=== PATIENT | female | born 1945 | race Caucasian/White ===

== ENCOUNTER → 2016-12-10 | Outpatient (CLI) | payer BC ==
[~2016-12-10] MED LIST: ALBU0.08 INH; ALBU1AER9 INH; ALL100 PO; ALL180 PO; ASTNS NAE; BECL0.072 INH; BMX1 PO; BUDE180I INH; CALC0.2510 PO; CHOL135C6 PO; CLC100 PO; CLON0.5T3 PO; CMD5 PO; CYM/30 PO; ERGO1CAP35 PO; EZET10TA41 PO; GUAI-13 PO; INSDGI SC; ISOS30TA3 PO; METO-157 PO; METO25TA3 PO; MONT1TAB5 PO; NTRGSL/4 UT; NVLGI SC; PANT40TA PO; PSEU30TA20 PO; SITA100T3 PO; SPIR50TA2 PO; TIOTCAP INH; WARF5TAB90 PO
[2016-12-10 10:35] LABS: BLOOD UREA NITROGEN 52 mg/dl (7-18); BUN/CREATININE RATIO 21.8 (10-20); CALCIUM 8.9 mg/dl (8.5-10.1); CARBON DIOXIDE 28 mmol/L (21-32); CHLORIDE 100 mmol/L (98-107); GLUCOSE 214 mg/dl (70-99); MAGNESIUM 2.4 mg/dl (1.8-2.4); PHOSPHORUS 3.1 mg/dl (2.5-4.9); POTASSIUM 4.1 mmol/L (3.5-5.1); SODIUM 138 mmol/L (136-145)
[2016-12-10 10:44] LABS: ESTIMATED AVERAGE GLUCOSE 169 mg/dl; HA1C FLAG Normal (Normal)
== END | disposition home or self-care (01) ==
LOC: C.LAB 09:23
PROVIDERS: ATTEND Internal Medicine Nephrology
DX: E11.65 Type 2 diabetes mellitus with hyperglycemia (principal); N18.4 Chronic kidney disease, stage 4 (severe)

== ENCOUNTER → 2017-02-10 | Outpatient (CLI) | payer BC ==
[~2017-02-10] MED LIST changes: +ALBU18002 INH; +ALLO100T PO; +AZEL0.15 NAE; +BUME2TAB3 PO; +CLBPO15 TOP; +DOCU100C31 PO; +ERGO500011 PO; +FEXO1TAB49 PO; +GUAIFENESIN PO; +IPRASOL4 INH; +NVLG SC; +PSEU120T31 PO; +SPRIN/30 INH; +WARF5TAB7 PO
== END | disposition home or self-care (01) ==
LOC: C.LAB1850 14:51
PROVIDERS: ATTEND Internal Medicine Pulmonary Disease
DX: G47.33 Obstructive sleep apnea (adult) (pediatric) (principal); E66.9 Obesity, unspecified

== ENCOUNTER → 2017-03-18 | Outpatient (CLI) | payer BC ==
[2017-03-18 09:40] LABS: BASO % 0.3 %; BASO ABS # 0.03 K/uL (0-0.2); COMPLETE YES; EOS % 3.8 %; HEMATOCRIT 39.3 % (37-47); IG% 0.8 %; LYMPH % 15.3 %; LYMPH ABS # 1.47 K/uL (1.2-3.4); MEAN CELL VOLUME 92.3 fL (80-100); MEAN CORPUSCULAR HEMOGLOBIN 30.8 pg (25-34); MEAN CORPUSCULAR HGB CONC 33.3 g/dl (32-36); MEAN PLATELET VOLUME 10.1 fL (7.4-10.4); MONO % 8.1 %; NEUT % 71.7 %; PLATELET COUNT 230 K/uL (130-400); RED BLOOD COUNT 4.26 M/uL (4.2-5.4); WHITE BLOOD COUNT 9.62 K/uL (4.8-10.8)
[2017-03-18 09:52] LABS: BLOOD UREA NITROGEN 50 mg/dl (7-18); CARBON DIOXIDE 25 mmol/L (21-32); CHLORIDE 101 mmol/L (98-107); CHOLESTEROL 156 mg/dl (0-200); GLUCOSE 153 mg/dl (70-99); MAGNESIUM 2.7 mg/dl (1.8-2.4); SODIUM 137 mmol/L (136-145); TRIGLYCERIDES 327 mg/dl (0-150); VERY LOW DENSITY LIPOPROT CALC 65 mg/dl
[2017-03-18 09:54] LABS: URINE APPEARANCE CLEAR (CLEAR); URINE BILIRUBIN NEG (NEG); URINE COLOR YELLOW; URINE NITRITE NEG (NEG); UROBILINOGEN NEG (NEG); ZZUR CULT IF INDIC CLEAN CATCH NO
[2017-03-18 09:56] LABS: MANUAL MICROSCOPIC REQUIRED? NO; REVIEW REQ? NO
[2017-03-18 09:57] LABS: CALCIUM 9.5 mg/dl (8.5-10.1)
[2017-03-18 10:02] LABS: CHOLESTEROL/HDL RATIO 4.2; HDL CHOLESTEROL 37 mg/dl; LDL CHOLESTEROL CALCULATED 54 mg/dl; PHOSPHORUS 3.9 mg/dl (2.5-4.9)
[2017-03-18 10:09] LABS: URINE PROTIEN/CREAT RATIO 0.2 (0-0.2); URINE TOTAL PROTEIN 5.9 mg/dl (0-11.9)
[2017-03-18 10:44] LABS: ESTIMATED AVERAGE GLUCOSE 180 mg/dl; HA1C FLAG Normal (Normal)
== END | disposition home or self-care (01) ==
LOC: C.LAB 07:23
PROVIDERS: ATTEND Nurse Practitioner Family
DX: N18.4 Chronic kidney disease, stage 4 (severe) (principal); R94.6 Abnormal results of thyroid function studies; E11.65 Type 2 diabetes mellitus with hyperglycemia; E78.5 Hyperlipidemia, unspecified

== ENCOUNTER → 2017-03-24 | Outpatient (CLI) | payer BC ==
--- NOTE | 2017-03-25 07:31 | SPLIT NIGHT TECHNICIAN REPORT ---
[facility] Split Night Polysomnogram - Motel Maid Report Study date: 03/24/2017 Referring Physician: GARY JAMES DO, DO Name: KRYSTAL BAER Nico Motel Maid: Cori Bell, PSGT. Date of : 1945 Height: 71 years, Height 4' 11" Sex: Female Weight: 224 lbs Age: 71 BMI: Medications: 45.24 SEE LIST OF 33 MEDICATIONS LISTED IN CHART. Patient History 71 YR. OLD FEMALE PRESENTS TONIGHT FOR A DIAGNOSTIC SLEEP STUDY. SHE ARRIVED WITH SHORTNESS OF BREATH AND WHEEZING WAS HEARD.SHE STATES THAT SHE DOSES OFF OFTEN DURING THE DAY, HER NORMAL SLEEP TIME IS BETWEEN 1-3 AM. SHE ISNT SURE IF SHE SNORES, AND SHE STATES THAT SHE DOESNT WAKE OFTEN DURING SLEEP. Pt. STAES THAT SHE SLEEPS WITH HER BED ELEVATED SO SHE CAN BEATHE. Parameters Monitored NPSG: E1-M2, E2-M1, Fp1-M2, Fp2-M1, F3-M2, F4-M2, F4-M1, C3-M2, C4-M2, C4-M1, O1-M2, O2-M2, O2-M1, T3-M2, T4-M1, P3-M2, P4-M1, CHIN1, CHIN2, HR, EKG, Legs, PFLOW, SNOR, FLOW, CFLOW, Tidal Volume, THOR, ABDO, SpO2, PLTH, CPRESS, ETCO2 Wave, ETCO2, pH SLEEP SUMMARY DATA DIAGNOSTIC TREATMENT Lights Out: 8:52:35 PM NONE Lights On: 11:59:05 PM 5:37:35 AM Total Recording Time (TRT): 187.9 min. 326.1 min. Total Sleep Time (TST): 129.5 min. 108.0 min. NREM Time: 129.5 min. 80.5 min. REM Time: 0.0 min. 27.5 min. Sleep Period Time (SPT): 150.0 min. 119.5 min. Sleep Efficiency (SE): 69 % 33 % Sleep Latency: 32.5 min. NONE min. Arousal Index: 20.4 6.7 PAP Treatment Levels: 4, 6, 8, 9 * Optimal Pressure(s) SLEEP STAGING DATA DIAGNOSTIC TREATMENT Duration (min) TST % Duration (min) TST % Stage Wake: 58.4 min. -- 218.1 min. -- WASO: 24.5 min. -- 11.5 min. -- NREM: 129.5 min. 100 % 80.5 min. 75 % Stage N1: 4.0 min. 3 % 7.5 min. 7 % Stage N2: 125.5 min. 97 % 73.0 min. 68 % Stage N3: 0.0 min. 0 % 0.0 min. 0 % REM: 0.0 min. 0 % 27.5 min. 25 % POSITIONAL DATA Event Count Index Event Count Index Supine: 65 30.1 29 16.1 Supine NREM: 65 30.1 21 15.7 Supine REM: N/A N/A 8 17 Non-Supine: N/A N/A N/A N/A Non-Supine NREM: N/A N/A N/A N/A Non-Supine REM: N/A N/A N/A N/A AROUSAL SUMMARY DATA: Event Count Index Event Count Index Apnea Arousals: 0 0.0 0 0.6 Hypopnea Arousals: 5 2.3 0 0.0 Snore Arousals: 0 0.0 0 0.0 PLM Arousals: 0 0.0 0 0.0 Non-Specific Arousals: 38 17.6 12 6.7 Total Arousals: 44 20.4 12 6.7 MYOCLONUS (PLM) Event Count Index Event Count Index PLM: 0 0.0 0 0.0 PLM AROUSAL: 0 0.0 0 0.0 PLM W/O AROUSAL 0 0.0 0 0.0 PLM W/RESP EVENT 0 0.0 0 0.0 MYOCLONUS (PLM) Event Count Index Event Count Index LM: 1 8.8 18 10.0 LM AROUSAL: 1 0.5 0 0.0 LM W/O AROUSAL LM W/RESP EVENT LM NON SPECIFIC 17 7.9 18 10.0 HEART RATE DATA DIAGNOSTIC TREATMENT Sleep (bpm): 62 62 REM (bpm): N/A 88 NREM (bpm): 88 89 Tachycardia Count: 0 0 Tachycardia Duration: 0.00 0 Bradycardia Count: 0 0 Bradycardia Duration: 0.00 0 DIAGNOSTIC PORTION TREATMENT PORTION RESPIRATORY DATA Event Count Index Event Count Index AHI: -- 30.1 -- 16.1 RDI: -- 30.1 -- 16 Obstructive Apnea: 0 0.0 1 0.6 Central Apnea: 0 0.0 0 0.0 Mixed Apnea: 0 0.0 0 0.0 Hypopnea: 65 30.1 28 15.6 RERA: 0 0.0 0 0.0 Total Apneas: 0 0.0 1 0.6 RESPIRATORY DATA REM NREM SLEEP REM NREM SLEEP Supine Position: Obstructive Apneas: N/A 0 0 0 1 1 Central Apneas: N/A 0 0 0 0 0 Mixed Apneas: N/A 0 0 0 0 0 Hypopneas: N/A 65 65 8 20 28 RERA N/A 0 0 0 0 0 Total Supine Events: N/A 65 65 8 21 29 Supine AHI: N/A 30.1 30.1 17 15.7 16.1 Supine RDI: N/A 30.1 30.1 17.5 15.7 16.1 REM NREM SLEEP REM NREM SLEEP Non-Supine Position: Obstructive Apneas: N/A N/A N/A N/A N/A N/A Central Apneas: N/A N/A N/A N/A N/A N/A Mixed Apneas: N/A N/A N/A N/A N/A N/A Hypopneas: N/A N/A N/A N/A N/A N/A RERA N/A N/A N/A N/A N/A N/A Total Supine Events: N/A N/A N/A N/A N/A N/A Supine AHI: N/A N/A N/A N/A N/A N/A Supine RDI: N/A N/A N/A N/A N/A N/A OXYGEN DESTAURATION DATA: Event Count Index Event Count Index REM Desaturations: N/A N/A 19 41.5 NREM Desaturations: 71 32.9 32 23.9 SNORE DATA DIAGNOSTIC TREATMENT Snore Time: 0.7 3:38:05 AM Snore TST%: 0 0 Snore Arousal Count: 0 0 Snore Arousal Index: 0.0 0.0 Desaturation Event Summary: Minimum %SpO2 Event Count Mean/Min/Max Duration(sec.) Desaturation Index % Time In Bed > 90 47 25.5 / 10.8 / 55.8 12.2 45.8 86 - 90 117 21.7 / 8.3 / 55.8 28.4 48.8 81 - 85 1 23.5 / 23.5 / 23.5 2.3 5.3 76 - 80 0 N/A 0.0 0.1 71 - 75 0 N/A 0.0 0.0 66 - 70 0 N/A 0.0 0.0 61 - 65 0 N/A 0.0 0.0 56 - 60 0 N/A 0.0 0.0 51 - 55 0 N/A 0.0 0.0 < 50 0 N/A 0.0 0.0 OXYGEN SATURATION DATA DIAGNOSTIC TREATMENT SpO2 Mean Sleep: 88 % 88 % SpO2 Mean REM: N/A % 88 % SpO2 Mean NREM: 88 % 89 % SpO2 Minimum Sleep: 82 % 79 % SpO2 Minimum REM: N/A % 79 % SpO2 Minimum NREM: 82 % 83 % Time Below 90% (TST): 110.9 79.6 Time Below 88% (TST): 60.1 26.6 Total REM NREM Awake <50% 0.0 min. 0.0 min. 0.0 min. 0.0 min. 51 - 60% 0.0 min. 0.0 min. 0.0 min. 0.0 min. 61 - 70% 0.0 min. 0.0 min. 0.0 min. 0.0 min. 71 - 80% 0.7 min. 0.7 min. 0.0 min. 0.1 min. 81 - 90% 274.0 min. 21.1 min. 199.6 min. 53.3 min. 91 - 100% 232.0 min. 5.7 min. 10.4 min. 215.8 min. Average 90 88 88 91 Minimum SpO2 79 79 82 80 Desaturation Event Index 14.3 41.5 29.4 0.2 # Desat. Events below 89% 121 19 102 N/A Time(%) with Saturation below 89% 32.3 3.2 24.0 5.1 Time(min.) with Saturation below 89% 163.8 16.3 121.7 25.7 Recording Motel Maid Comments: Split -Night: MS. Baer slept in the supine positions. No cardiac arrhythmia or PLM's noted. No bruxism noted. Snoring was noted and scored as a 1 on a scale of 1 through 5. (0=no snoring, 5=snoring loud enough to be heard through a closed door or down the [address] way) At 11:59 pm, MS. Baer has met specific Split-Night criteria during the diagnostic portion of this study. CPAP was initiated at +4 CMH2O and up-titrated to an optimal level of +9 CMH2O, which nearly eliminated all respiratory events and snoring. A small Res Med Mirage Quattro, was used during titration Ms. Baer awoke to use the restroom one time during the night. Ms. Baer stated, I did sleep as well as I do when I am in my own bed. The final report will be interpreted and signed by a sleep physician. The completed physician report will then be placed in the patient medical record. Pt. woke for a very long period, when asked she stated that this was normal for her to sleep off and on throughout the day and night.Pt. did meet split night qualification's, and titration was started, but she did have a long wakeful period at the time it was started.Pt. tolerated the mask and treatment well. However study had to be ended at 5:40 for she a ride coming at 6:00 am.Test was done with the head of bed elevated at 45 degree angle. Therapy Event: Therapy (cm H20) 0 4 6 8 9 Total Time at Pressure (min.) 186.9 226.3 9.5 65.4 24.8 TST at Pressure (min.) 129.5 19.2 9.5 54.4 24.8 # Periods 1 1 1 1 1 Sleep Onset (min.) 32.5 207.1 0.0 0.0 0.0 REM Onset (min.) N/A N/A N/A 54.2 0.0 Sleep Efficiency % 69 8 100 83 100 Wakefulness (%) 30.7 91.5 0.0 16.8 0.0 Wakefulness (min.) 57.4 207.1 0.0 11.0 0.0 NREM 1 (%) 2.1 0.7 0.0 9.2 0.0 NREM 1 (min.) 4.0 1.5 0.0 6.0 0.0 NREM 2 (%) 67.1 7.8 100.0 69.9 0.0 NREM 2 (min.) 125.5 17.7 9.5 45.7 0.0 NREM 3 (%) 0.0 0.0 0.0 0.0 0.0 NREM 3 (min.) 0.0 0.0 0.0 0.0 0.0 REM (%) 0.0 0.0 0.0 4.1 100.0 REM (min.) 0.0 0.0 0.0 2.7 24.8 # Arousals 44 4 1 7 0 Arousal Index 20.4 12.5 6.3 7.7 0.0 # Snore 30 1 0 6 2 Snore Index 13.9 3.1 0.0 6.6 4.8 AHI 30.1 21.8 56.6 6.6 16.9 AHI Supine 30.1 21.8 56.6 6.6 16.9 AHI Non-Supine N/A N/A N/A N/A N/A NREM AHI 30.1 21.8 56.6 5.8 N/A REM AHI N/A N/A N/A 22.4 16.9 RDI 30.1 21.8 56.6 6.6 16.9 # Obstructive 0 0 1 0 0 # Central Ap 0 0 0 0 0 # Mixed 0 0 0 0 0 # Hypopneas 65 7 8 6 7 RERAS 0 0 0 0 0 Total Respiratory Events 65 7 9 6 7 Time Below SpO2 89.00% (min.) 90.2 12.9 4.7 15.7 14.5 Mean NREM SpO2 (%) 88 88 89 89 N/A Mean REM SpO2 (%) N/A N/A N/A 88 88 Mean Sleep SpO2 (%) 88 88 89 89 88 Min NREM SpO2 (%) 82 84 84 83 N/A Min REM SpO2 (%) N/A N/A N/A 84 79 Position Supine (min.) 129.5 19.2 9.5 54.4 24.8 Position Non-supine (min.) 0.0 0.0 0.0 0.0 0.0 LM Index Sleep 8.8 9.4 6.3 9.9 12.1 LM Index NREM 8.8 9.4 6.3 9.3 N/A LM Index REM N/A N/A N/A 22.4 12.1 Mean Heart Rate (bpm) 62 61 61 62 62 Min Heart Rate (bpm) 58 59 60 58 57
--- NOTE | 2017-03-26 16:46 | POLYSOMNOGRAPH REPORT ---
REFERRING PHYSICIAN: Alfred Mckeon. CLINICAL DATA: The patient is a 71-year-old female who has a history of shortness of breath and excessive daytime somnolence. She has obesity and diabetes mellitus. Sleep apnea is suspected. This study was an in-lab overnight split study. SLEEP ARCHITECTURE: During the diagnostic portion of the study, the sleep period time was 150 minutes. The total sleep time was 129.5 minutes. The sleep efficiency was moderately reduced to 69%. The sleep latency was prolonged at 32.5 minutes. Sleep consisted of stage N1 of 3%, stage N2 of 97%, stage N3 of 0%, and stage REM 0%. During the treatment portion of the study, the patient's nocturnal events were treated with nasal CPAP. The sleep period time was 119.5 minutes and the total sleep time was 108 minutes. The sleep efficiency was severely reduced at 33%. The sleep latency was severely prolonged at 208.5 minutes. She was treated with nasal CPAP starting at 4 cm up to a maximum of 9 cm. Sleep consisted of stage N1 of 7%, stage N2 of 68%, stage N3 of 0%, and stage REM 25%. AROUSAL DATA: During the diagnostic portion of the study, the patient had a total of 44 arousals including 5 hypopnea arousals and 39 nonspecific arousals. The arousal index was 20.4. During the therapeutic portion of the study, the patient had 12 arousals, all of which were nonspecific arousals. The arousal index was 6.7. PLM DATA: The patient had 0 periodic limb movements during the night. EKG: The underlying cardiac rhythm was normal sinus. The cardiac rates ranged from 62 to 89 beats per minute. RESPIRATORY DATA: During the diagnostic portion of the study, the patient had a total of 65 respiratory events, all hypopneas. The hypopneas were scored according to the 4% desaturation rule. The apnea-hypopnea index was moderately elevated at 30.1 events per hour. During the therapeutic portion of the study, when the patient was treated with nasal CPAP, she had a total of 29 respiratory events including 1 obstructive apnea and 28 hypopneas. The apnea-hypopnea index was 16.1 events per hour. OXIMETRY DATA: During the diagnostic portion of the study, the mean saturation was 88% and a minimum saturation was 82%. She had 60.1 minutes with saturations less than 88%. During the therapeutic portion of the study, the mean saturation was 88%. The minimum saturation was 79%. The time with saturations less than 88% was 26.6 minutes. GEOPHYSICS PROFESSOR COMMENTS AND TREATMENT SUMMARY: The patient slept in the supine position. No arrhythmias were noted. No PLMs were noted. No bruxism was noted. Snoring was noted and scored as a 1 on a scale of 1 through 5. At 11:59 p.m., the patient met specific split night criteria during the diagnostic portion. CPAP was initiated at 4 cm and up titrated to an optimum level of 9 cm. A small ResMed Mirage Quattro mask was used during titration. Following the study, the patient stated she did not sleep as well as she does in her own bed. IMPRESSION: Obstructive sleep apnea -- moderate -- improved with nasal CPAP. COMMENTS: The patient met criteria for a split study. She had moderate sleep apnea with an apnea-hypopnea index of 30.1. However, when CPAP was initiated, it took her longer than 3 hours to initiate sleep. Thus, her sleepy efficiency was poor during the treatment portion of the study at only 33%. Also, she was not able to be titrated as well as desired because there were little time left for her to be titrated. She also had to be awakened to get up because she had a ride coming at 6 am to pick her up. She had gone into REM sleep shortly before the end of the study. It seems likely that she needs a pressure set higher than 9 cm in light of the residual apnea. Thus, it would be suggested that her pressure be set at 11 cm as a starting point. RECOMMENDATIONS: 1. It is advised that the patient be started on nasal CPAP at 11 cm. 2. It is advised that she be ordered a ResMed Mirage Quattro mask size small. 3. The patient has a severe elevation of body mass index at 45.24. A weight reduction program as advised. 4. If possible, the patient should avoid sleeping supine as there was typically more apneas in the supine position. 5. The patient should be seen in followup between day 31 and day 90 after receiving CPAP. [facility]
== END | disposition home or self-care (01) ==
LOC: C.NEUR 20:00
PROVIDERS: ATTEND Internal Medicine Pulmonary Disease
DX: G47.33 Obstructive sleep apnea (adult) (pediatric) (principal)

== ENCOUNTER → 2017-03-28 | Outpatient (CLI) | payer BC ==
--- NOTE | 2017-03-28 11:42 | DIAGNOSTIC IMAGING REPORT ---
CHEST 2 VIEWS ROUTINE CLINICAL HISTORY: R06.02 Shortness of [id number] dyspnea COMPARISON STUDY: 05/01/2016 FINDINGS: The bones soft tissues and hemidiaphragms are normal. The cardiomediastinal silhouette is normal. The lungs are clear. The pulmonary vasculature is normal. IMPRESSION: Negative chest. Electronically signed by: Clive Martinez M.D. 03/28/2017 11:41 AM Dictated Date/Time: 03/28/2017 11:40 AM
== END | disposition home or self-care (01) ==
LOC: C.RAD1850 11:30
PROVIDERS: ATTEND Physician Assistant Medical
DX: R06.02 Shortness of breath (principal); R05 Cough

== ENCOUNTER → 2017-06-20 | Outpatient (CLI) | payer BC ==
[~2017-06-20] MED LIST changes: -ALBU18002 INH; -ALLO100T PO; -AZEL0.15 NAE; -BECL0.072 INH; -BUME2TAB3 PO; -CLBPO15 TOP; -DOCU100C31 PO; -ERGO500011 PO; -FEXO1TAB49 PO; -GUAIFENESIN PO; -IPRASOL4 INH; -NVLG SC; -PSEU120T31 PO; -SPRIN/30 INH; -WARF5TAB7 PO
[2017-06-20 09:34] LABS: BASO % 0.4 %; BASO ABS # 0.04 K/uL (0-0.2); COMPLETE YES; EOS % 5.1 %; HEMATOCRIT 37.8 % (37-47); LYMPH ABS # 1.55 K/uL (1.2-3.4); MEAN CELL VOLUME 92.4 fL (80-100); MEAN CORPUSCULAR HEMOGLOBIN 31.3 pg (25-34); MEAN CORPUSCULAR HGB CONC 33.9 g/dl (32-36); MEAN PLATELET VOLUME 10.5 fL (7.4-10.4); MONO % 7.6 %; NEUT % 69.9 %; PLATELET COUNT 197 K/uL (130-400); RED BLOOD COUNT 4.09 M/uL (4.2-5.4); WHITE BLOOD COUNT 9.66 K/uL (4.8-10.8)
[2017-06-20 09:52] LABS: BLOOD UREA NITROGEN 49 mg/dl (7-18); BUN/CREATININE RATIO 20.2 (10-20); CALCIUM 9.3 mg/dl (8.5-10.1); CARBON DIOXIDE 27 mmol/L (21-32); CHLORIDE 101 mmol/L (98-107); GLUCOSE 102 mg/dl (70-99); MAGNESIUM 2.5 mg/dl (1.8-2.4); PHOSPHORUS 4.1 mg/dl (2.5-4.9); SODIUM 136 mmol/L (136-145)
== END | disposition home or self-care (01) ==
LOC: C.LAB 07:42
PROVIDERS: ATTEND Internal Medicine Nephrology
DX: N18.4 Chronic kidney disease, stage 4 (severe) (principal)

== ENCOUNTER → 2017-06-26 | Outpatient (CLI) | payer BC ==
--- NOTE | 2017-06-26 14:20 | MAMMOGRAPHY REPORT ---
BILATERAL DIGITAL DIAGNOSTIC MAMMOGRAM TOMOSYNTHESIS WITH CAD AND TARGETED RIGHT ULTRASOUND: CLINICAL HISTORY: Status post benign stereotactic biopsy of right breast calcifications June, here for short interval follow-up. TECHNIQUE: Breast tomosynthesis in addition to standard 2D mammography was performed. Current study was also evaluated with a Computer Aided Detection (CAD) system. Bilateral CC and MLO 2-D and tomosy nthesis images and spot magnification right cc and ML views were obtained. COMPARISON: Comparison is made to exams dated: 06/25/2016 stereotactic biopsy, 06/25/2016 mammogram, ultrasound, 06/04/2016 mammogram, 06/01/2015 mammogram, and 11/22/2014 mammogram - [facility]. BREAST COMPOSITION: The tissue of both breasts is almost entirely fatty. FINDINGS: A biopsy marker clip is again noted in the right central breast from prior benign stereota ctic biopsy. No increasing calcifications are noted at the biopsy site. There is an oval partially circumscribed and partially obscured 7 mm mass in the right upper outer quadrant, which appears sligh tly more prominent compared to the 2015 exam. A round circumscribed 3 mm mass anterior to this mass is stable dating back to at least the April 2014 exam and is considered benign given long-term stabili ty. The remainder of both breasts are stable compared to prior exams, without suspicious masses, lexi cifications, or areas of architectural distortion noted. Bilateral benign vascular calcifications ar e again noted. Targeted ultrasound was performed of the area of the 2 right breast masses. In the right breast at 8 :00, 1 cm from the nipple, again noted is a round circumscribed hypoechoic mass which measures 2 x 2 x 3 mm. This is stable on ultrasound dating back to the May 2016 exam, and corresponds with the m ammographic mass which has been stable dating back to 2013. Given the long-term stability, the mass is considered benign. Adjacent to this in the right breast at 8:00, 2 cm from the nipple, there is a subtle slightly hypoechoic 3 x 4 mm mass, which is indeterminate for a solid mass or complicated cyst . This likely corresponds with the increasingly prominent mammographic mass and is indeterminate. R ecommend ultrasound guided core needle biopsy for further evaluation. IMPRESSION: ACR BI-RADS CATEGORY 4A: LOW SUSPICION FOR MALIGNANCY, TARGETED ULTRASOUND ACR BI-RADS C ATEGORY 4A: LOW SUSPICION FOR MALIGNANCY 1. Hypoechoic 4 mm mass in the right breast at 8:00 on ultrasound, which is felt to correspond with an increasingly prominent mammographic mass. The mass may represent a complicated cyst versus solid mass and is indeterminant. Recommend ultrasound-guided core needle biopsy for further evaluation. 2. No mammographic evidence of malignancy in the left breast. A phone call was made to the physician's office to confirm faxed results were received. The patient has been verbally notified of the results. She tentatively scheduled the biopsy before leaving the [facility]. The patient remained on Coumadin for her stereotactic biopsy 1 year ago; the patient was told it would be okay for her to continue her Coumadin for the procedure. Approximately 10% of breast cancers are not detected with mammography. A negative mammographic report should not delay biopsy if a clinically suggestive mass is present. Paola Rincon M.D. ah/:06/26/2017 11:59:08 Certified Prosthetist/Orthotist: Itzel WORTHINGTON)(Nohemi), [facility] letter sent: Abnormal 4/5 BI-RADS Code: ACR BI-RADS Category 4A: Low Suspicion For Malignancy Ultrasound BI-RADS: ACR BI-RADS Category 4A: Low Suspicion For Malignancy
== END | disposition home or self-care (01) ==
LOC: C.MAMM 10:03
PROVIDERS: ATTEND Nurse Practitioner Family
DX: R92.1 Mammographic calcification found on diagnostic imaging of breast (principal); N63 Unspecified lump in breast

== ENCOUNTER → 2017-07-02 | Outpatient (CLI) | payer BC ==
--- NOTE | 2017-07-02 09:43 | Discharge Instructions ---
Discharge Instructions Procedure Procedure Date: Jul 02, 2017. Reason for visit: Right Mass. Discharge Discharge Date: Jul 02, 2017. Discharge Diagnosis: status post breast biopsy Instructions Activity Recommendations: Additional Limitations (see below) Return to School/Work: no limitations Recommended Home Diet: No Limitations Provider Instructions: ACTIVITY RECOMMENDATIONS: * No lifting, pushing, pulling or exercising the affected side for three days. RETURN TO SCHOOL/WORK: * You may return to work/school after the procedure, but do not perform any strenuous activities for 24 to 48 hours. MEDICATIONS: * Tylenol (two 325 mg) every four to six hours if needed for mild pain (if not allergic to Tylenol). DIET: * Resume previous diet. SPECIAL CARE INSTRUCTIONS: * Keep biopsy site dry for 24 hours. May shower after 24 hours, but do not soak (bathe) incision. * May remove Tegaderm (plastic patch) tomorrow AFTER showering. * Leave the steri-strips on for one week. Allow the steri-strips to fall off by themselves. If not off after one week, you may remove them. You may place a Bandaid crosswise over the strips, if desired. * Apply ice 10 minutes on and 10 minutes off as needed. * Wear a bra at bedtime to sleep more comfortably for 2-3 days. * Your referring physician should have the results after approximately 5 to 7 business days. * Call for unusual bleeding, fever, drainage, etc or if you have any questions call during normal business hours or after hours call Dr Rincon, . FOLLOW UP VISIT: Follow-up with Referring Physician as scheduled. Allergies Coded Allergies: Clarithromycin (Verified Allergy, Unknown, 12/08/15) Kirk Diaz Recommendations: Call your doctor if: * Temperature above 101 degrees * Pain not relieved by pain medicine ordered * There is increased drainage or redness from any incision * You have any unanswered questions or concerns. Your Doctors Instructions noted above were prepared by provider Paola Rincon. Patient Signature Section: Patient Instructions Signature Page Beverley Baer Patient (or Guardian) Signature/Date: I have read and understand the instructions given to me by my caregivers. Caregiver/RN/Doctor Signature/Date: The above-named patient and/or guardian has received patient instructions on this date. + Original Patient Signature Page (only) stays with chart. Please make copy for patient.
--- NOTE | 2017-07-02 15:19 | MAMMOGRAPHY REPORT ---
UNILATERAL RIGHT DIGITAL DIAGNOSTIC MAMMOGRAM TOMOSYNTHESIS: 07/02/2017 CLINICAL HISTORY: Status post ultrasound guided biopsy of a right 8:00 breast mass. TECHNIQUE: Breast tomosynthesis in addition to standard 2D mammography was performed. Postprocedura l right CC and ML 2-D and tomosynthesis images were obtained. COMPARISON: Comparison is made to exams dated: 06/26/2017 ultrasound, 06/26/2017 mammogram, 06/25/2016 stereotactic biopsy, 06/25/2016 mammogram, 06/04/2016 ultrasound, and 06/04/2016 mammogram - [facility]. BREAST COMPOSITION: The tissue of the right breast is almost entirely fatty. FINDINGS: A new ribbon-shaped biopsy marker clip is seen at the site of the biopsied mass in the rig ht breast at approximately 8:00. No significant postbiopsy hematoma is seen. IMPRESSION: POST PROCEDURE IMAGING FOR MARKER PLACEMENT New biopsy marker clip status post ultrasound guided biopsy of the right 8:00 breast mass. Pathology results are pending. Approximately 10% of breast cancers are not detected with mammography. A negative mammographic report should not delay biopsy if a clinically suggestive mass is present. Paola Rincon M.D. ah/:07/02/2017 09:54:35 Executive Wellness Programs Director: Albina ROBLERO(R)(Nohemi), [facility] BI-RADS Code: Post Procedure Imaging For Marker Placement
--- NOTE | 2017-07-02 15:19 | MAMMOGRAPHY REPORT ---
ULTRASOUND GUIDED BIOPSY RIGHT BREAST: 07/02/2017 CLINICAL HISTORY: Right 8:00 breast mass. PATIENT CONSENT: The procedure, risks and benefits were discussed with the patient and informed writt en consent was obtained. A timeout was performed immediately prior to the procedure. PROCEDURE DESCRIPTION: With ultrasound guidance, aseptic technique, and lidocaine as the local anesth etic (1% lidocaine to anesthetize the skin and 1% lidocaine with epinephrine to anesthetize the deepe r tissues), the mass of concern in the right 8:00 breast was sampled 4 times with a 14-gauge Achieve biopsy needle. Immediately thereafter, with ultrasound guidance, aseptic technique, and lidocaine as the local anesthetic, a metallic localizer clip was placed at the biopsy site. Direct pressure was applied to the site immediately post procedure and hemostasis was achieved. Postprocedure unilateral mammograms were performed to confirm placement of the clip in the expected location of the breast ma ss. The patient tolerated the procedure without complication. She was given wound care instructions . The specimens were sent to pathology for analysis. COMPARISON: Comparison is made to exams dated: 06/26/2017 ultrasound, 06/26/2017 mammogram, 06/25/2016 stereotactic biopsy, 06/25/2016 mammogram, 06/04/2016 ultrasound, and 06/04/2016 mammogram - [facility]. IMPRESSION: ULTRASOUND GUIDED BIOPSY Ultrasound guided core needle biopsy of the right 8:00 breast mass, with clip placement. The patient will receive pathology results from her referring provider. Paola Rincon M.D. /:07/02/2017 09:44:43 Viticulture Teacher: Albina WORTHINGTON)(Nohemi), [facility]
== END | disposition home or self-care (01) ==
LOC: C.MAMM 09:03
PROVIDERS: ATTEND Nurse Practitioner Family
DX: N63 Unspecified lump in breast (principal); N60.91 Unspecified benign mammary dysplasia of right breast

== ENCOUNTER → 2017-07-21 | Outpatient (CLI) | payer BC ==
[2017-07-21 18:44] LABS: URINE APPEARANCE CLEAR (CLEAR); URINE BILIRUBIN NEG (NEG); URINE COLOR YELLOW; URINE EPITHELIAL CELL AUTO >30 /lpf (0-5); URINE NITRITE NEG (NEG); URINE PH 5.5 (4.5-7.5); URINE SPECIFIC GRAVITY 1.015 (1.000-1.030); UROBILINOGEN NEG (NEG)
[2017-07-21 18:46] LABS: MANUAL MICROSCOPIC REQUIRED? NO; REVIEW REQ? NO
== END | disposition home or self-care (01) ==
LOC: C.LABSPEC 17:41
PROVIDERS: ATTEND Nurse Practitioner Family
DX: R39.9 Unspecified symptoms and signs involving the genitourinary system (principal)

== ENCOUNTER → 2017-07-21 | Outpatient (CLI) | payer BC ==
--- NOTE | 2017-07-21 15:37 | DIAGNOSTIC IMAGING REPORT ---
TWO VIEW CHEST CLINICAL HISTORY: Asthma. FINDINGS: PA and lateral chest radiographs are compared to study dated 03/28/2017. The cardiomediastinal silhouette is unremarkable. There is atherosclerotic calcification of the thoracic and. Chronic interstitial thickening is similar to previous. No airspace consolidation or pleural effusion is identified. There is no pneumothorax. The skeletal structures are osteopenic. Degenerative change and hyperkyphosis are noted in the thoracic spine. IMPRESSION: No active disease in the chest. Electronically signed by: Иван Jackson M.D. 07/21/2017 3:35 PM Dictated Date/Time: 07/21/2017 3:34 PM
== END | disposition home or self-care (01) ==
LOC: C.RAD1850 14:57
PROVIDERS: ATTEND Nurse Practitioner Family
DX: J45.909 Unspecified asthma, uncomplicated (principal)

== ENCOUNTER → 2017-07-28 | Outpatient (CLI) | payer BC ==
[~2017-07-28] MED LIST changes: -BUDE180I INH
--- NOTE | 2017-07-28 07:51 | DIAGNOSTIC IMAGING REPORT ---
CT SOFT TISSUE NECK WITHOUT CT DOSE: 1224.12 mGy.cm CLINICAL HISTORY: R05 [id number] Hoarseness TECHNIQUE: Helical images were acquired without intravenous contrast. A dose lowering technique was utilized adhering to the principles of ALARA. COMPARISON STUDY: None. FINDINGS: Visualized portions lung apices are unremarkable. There is a 25 mm left thyroid nodule containing a coarse calcification No salivary gland masses are visualized on this noncontrast examination. No mucosal space masses are visualized in this noncontrast study. There is no pathologic adenopathy given the limitations of a noncontrast study. Atherosclerotic changes are present within the carotid arteries. There is no evidence of airway compromise. Degenerative changes are present within the cervical spine. There is mild subglottic tracheal narrowing with equivocal right lateral wall thickening. In addition element of tracheomalacia cannot be excluded. Given history of hoarseness, direct visualization might be considered in follow-up. IMPRESSION: 1. 25 mm left-sided thyroid nodule 2. Mild subglottic tracheal narrowing with equivocal right lateral wall thickening. Given the history of hoarseness, direct visualization might be considered in follow-up Electronically signed by: Arnulfo Reeves M.D. 07/28/2017 7:49 AM Dictated Date/Time: 07/28/2017 7:43 AM
--- NOTE | 2017-07-28 07:54 | DIAGNOSTIC IMAGING REPORT ---
CT SCAN OF THE CHEST WITHOUT IV CONTRAST CLINICAL HISTORY: Cough. Hoarseness. COMPARISON STUDY: Chest x-ray dated 07/21/2017. Chest CT dated 07/16/2006. TECHNIQUE: CT scan of the thorax was performed from the thoracic inlet to the upper abdomen. Images are reviewed in the axial, sagittal, and coronal planes. IV contrast was not administered for this examination as per the referring clinician. A dose lowering technique was utilized adhering to the principles of ALARA. FINDINGS: Thyroid: Imaged portions of the thyroid gland are normal in size and attenuation. A 2.3 cm nodule is present in the left thyroid lobe. This is been present since back to 2005 Thoracic aorta: There is atherosclerotic calcification of the thoracic aorta, which is normal in caliber and demonstrates standard 3-vessel arch anatomy. Heart: The heart is enlarged and without pericardial effusion. The coronary arteries an aortic valve leaflets are densely calcified. The main pulmonary arteries are dilated suggesting pulmonary artery hypertension. Lungs and pleural spaces: There is no airspace consolidation or pleural effusion. Dependent atelectasis is noted. Mild peribronchial thickening is seen in the lower lobes. There are scattered calcified granulomas. A 4 mm pulmonary nodule at the left lung base is seen on image #215 and a 3 mm pleural-based nodule in the right lower lobe as seen on image #155. These were also present 2005 and are of low suspicion.. Mediastinum: There is no mediastinal lymphadenopathy. Mady: Not well assessed without IV contrast. Axillae: There is no axillary lymphadenopathy. Upper abdomen: There is a moderate hiatal hernia. Fluid is present within the mid to distal esophagus 2 the level of the isamar. The partially visualized kidneys demonstrate cortical atrophy. The spleen is mildly enlarged measuring 13.6 cm in length. Skeletal structures: The skeletal structures are osteopenic. Degenerative change and hyperkyphosis are noted throughout the thoracic spine. A large hemangioma is seen in the body of T11. No lytic or blastic bony lesions are seen. IMPRESSION: 1. There is no airspace consolidation or pleural effusion. 2. Mild peribronchial thickening suggests reactive airway disease. Clinical correlation will be required. 3. There is a moderate hiatal hernia. Fluid is present within the distal esophagus to the level of the isamar. Note that this may place the patient at risk for aspiration. Clinical correlation will be required. 4. Cardiomegaly. 5. There is a 2.3 cm low-attenuation nodule in the left thyroid lobe. This has only modestly increased in size from 2006. If clinically warranted this could be further assessed with a thyroid ultrasound. 6. Additional findings as above. Electronically signed by: Иван Jackson M.D. 07/28/2017 7:53 AM Dictated Date/Time: 07/28/2017 7:46 AM
== END | disposition home or self-care (01) ==
LOC: C.CTS 07:13
PROVIDERS: ATTEND Internal Medicine Pulmonary Disease
DX: R49.0 Dysphonia (principal); R05 Cough; K44.9 Diaphragmatic hernia without obstruction or gangrene; I51.7 Cardiomegaly; E04.1 Nontoxic single thyroid nodule

== ENCOUNTER → 2017-08-08 | Outpatient (CLI) | payer BC ==
[~2017-08-08] MED LIST changes: +ALBU18002 INH; +ALLO100T PO; +AZEL0.15 NAE; +BUDE180I INH; +BUME2TAB3 PO; +CLBPO15 TOP; +DOCU100C31 PO; +ERGO500011 PO; +FEXO1TAB49 PO; +GUAIFENESIN PO; +IPRASOL4 INH; +NVLG SC; +PSEU120T31 PO; +SPRIN/30 INH; +WARF5TAB7 PO
[2017-08-08 15:45] LABS: MANUAL MICROSCOPIC REQUIRED? NO; REVIEW REQ? NO; URINE APPEARANCE CLEAR (CLEAR); URINE BILIRUBIN NEG (NEG); URINE COLOR YELLOW; URINE EPITHELIAL CELL AUTO >30 /lpf (0-5); URINE NITRITE NEG (NEG); URINE SPECIFIC GRAVITY 1.021 (1.000-1.030); UROBILINOGEN NEG (NEG)
== END | disposition home or self-care (01) ==
LOC: C.LAB 14:32
PROVIDERS: ATTEND Family Medicine
DX: R39.9 Unspecified symptoms and signs involving the genitourinary system (principal)

== ENCOUNTER → 2017-08-13 | Outpatient (CLI) | payer BC ==
--- NOTE | 2017-08-13 10:49 | DIAGNOSTIC IMAGING REPORT ---
ULTRASOUND-GUIDED FINE NEEDLE ASPIRATION BIOPSY OF A LEFT LOBE THYROID NODULE CLINICAL HISTORY: E04.1 left lobe thyroid nodule COMPARISON STUDY: CT scan dated 07/28/2017 FINDINGS: A timeout was performed. The risks the procedure were explained the patient informed consent was obtained. The patient was prepped in sterile fashion. The skin was anesthetized 1% lidocaine. Under ultrasound guidance, 3 samples utilizing a 25-gauge needle were obtained from the patient's left lobe thyroid nodule. Initial pathologic review indicates satisfactory material for diagnosis. Final pathology is pending at this time. IMPRESSION: Successful ultrasound-guided fine-needle aspiration biopsy of a left lobe thyroid nodule. Electronically signed by: Arnulfo Reeves M.D. 08/13/2017 10:48 AM Dictated Date/Time: 08/13/2017 10:46 AM
== END | disposition home or self-care (01) ==
LOC: C.ULTR 09:12
DX: E04.1 Nontoxic single thyroid nodule (principal); Z51.81 Encounter for therapeutic drug level monitoring; Z79.01 Long term (current) use of anticoagulants; I48.91 Unspecified atrial fibrillation

== ENCOUNTER → 2017-09-26 | Outpatient (CLI) | payer BC ==
[~2017-09-26] MED LIST changes: -ALBU0.08 INH; -ALBU1AER9 INH; -ALL100 PO; -ALL180 PO; -ASTNS NAE; -BMX1 PO; -CLC100 PO; -CMD5 PO; -ERGO1CAP35 PO; -GUAI-13 PO; -NVLGI SC; -PSEU30TA20 PO; -TIOTCAP INH
[2017-09-26 10:21] LABS: URINE APPEARANCE CLOUDY (CLEAR); URINE BILIRUBIN NEG (NEG); URINE COLOR YELLOW; URINE EPITHELIAL CELL AUTO 0-5 /lpf (0-5); URINE NITRITE POS (NEG); URINE PH 5.5 (4.5-7.5); URINE SPECIFIC GRAVITY 1.015 (1.000-1.030); UROBILINOGEN NEG (NEG); ZZUR CULT IF INDIC CLEAN CATCH YES
[2017-09-26 10:24] LABS: ESTIMATED AVERAGE GLUCOSE 186 mg/dl; HA1C FLAG Normal (Normal)
[2017-09-26 10:30] LABS: CREATININE RANDOM URINE 29.4 mg/dl; CREATININE, URINE 29.3 mg/dl; URINE PROTIEN/CREAT RATIO 0.4 (0-0.2); URINE TOTAL PROTEIN 10.4 mg/dl (0-11.9)
[2017-09-26 10:37] LABS: MANUAL MICROSCOPIC REQUIRED? NO; REVIEW REQ? NO
[2017-09-26 10:40] LABS: BLOOD UREA NITROGEN 69 mg/dl (7-18); BUN/CREATININE RATIO 29.5 (10-20); CALCIUM 9.2 mg/dl (8.5-10.1); CARBON DIOXIDE 29 mmol/L (21-32); CHLORIDE 98 mmol/L (98-107); CREATININE 2.34 mg/dl (0.60-1.20); GLUCOSE 145 mg/dl (70-99); MAGNESIUM 2.6 mg/dl (1.8-2.4); PHOSPHORUS 3.4 mg/dl (2.5-4.9); POTASSIUM 3.7 mmol/L (3.5-5.1); SODIUM 134 mmol/L (136-145)
[2017-09-26 10:41] LABS: RATIO 128.9 mcg/mg (0-30.0)
== END | disposition home or self-care (01) ==
LOC: C.LAB1850 09:29
PROVIDERS: ATTEND Nurse Practitioner Family
DX: N18.4 Chronic kidney disease, stage 4 (severe) (principal); E11.65 Type 2 diabetes mellitus with hyperglycemia

== ENCOUNTER → 2017-10-14 | Day surgery (SDC) | payer BC ==
[2017-08-20 10:40] VITALS: Ht 154.9 cm; Wt 102.7 kg
[~2017-10-14] VITALS: Ht 154.9 cm; Wt 102.7 kg
[~2017-10-14] MED LIST changes: +500ML BSS 0.3ML EPI 1:1000PF IRRIG ONE; +ACETAMINOPHEN 325 MG TAB PO PRN; +AMVISC PLUS 0.8ML SYRINGE INT OCU ONE; +ATROPINE SULFATE 0.1 MG/ML 5ML SYR IV PRN; +BSS FLUSH ONE; +BUME1TAB45 PO; +CIPR1TAB11 PO; -CLON0.5T3 PO; +CPR500 PO; +CYCLOPENTOLATE HCL 1% OP SOLN PER DROP CHARGE OPR SCH; +EpHEDrine SULFATE INJ 50 MG/ML AMP IV PRN; +EpINEphrine INJ 1MG/ML AMP 1 MG/ML AMP ONE; +GATIFLOXACIN OP SOLN PER DROP CHARGE OPR SCH; +INSU100I23 SC; +IPRA-64 INH; -IPRASOL4 INH; +KETOROLAC 0.5% OP SOLN PER DROP CHARGE OPR SCH; +KFL/250 PO; +KFL250 PO; +KLN/5 PO; +LACTATED RINGER'S 1000ML 500 ML IV SCH; +LEVO50TA6 PO; +LIDOCAINE 3.5% OPH GEL PER APPLICATION CHARGE ONE; +LIDOCAINE HCL 1% MPF 2 ML VIAL ONE; +MCRK20 PO; -METO25TA3 PO; +METO25TA4 PO; +MIDAZOLAM HCL 1 MG/ML 2ML VIAL ONE; +OCUCOAT 1 ML SOLN IO ONE; +OXYC-57 PO; +PANT1TAB4 PO; +PHENYLEPHRINE HCL 10% OP SOLN PER DROP CHARGE OPR SCH; +PHENYLEPHRINE HCL 2.5% OP SOLN PER DROP CHARGE OPR SCH; +POTA-639 PO; +POVIDONE-IODINE OP SOLN 30 ML BTL ONE; +PROPARACAINE 0.5% OP SOLN PER DROP CHARGE OPR SCH; +PSEU60TA80 PO; +SILV1CRE99 TOP; +TOBRAMYCIN/DEXAMETHASONE OPH OINT PER APPLN CHARGE ONE; +TPRSR25 PO; +TROPICAMIDE 1% OP SOLN PER DROP CHARGE OPR SCH
[2017-10-14] MEDS: PHENYLEPHRINE HCL 2.5% OP SOLN PER DROP CHARGE OPR SCH ×2 (06:45→06:51)
[2017-10-14] MEDS: TROPICAMIDE 1% OP SOLN PER DROP CHARGE OPR SCH ×2 (06:46→06:52)
[2017-10-14] MEDS: CYCLOPENTOLATE HCL 1% OP SOLN PER DROP CHARGE OPR SCH ×2 (06:47→06:53)
[2017-10-14] MEDS: KETOROLAC 0.5% OP SOLN PER DROP CHARGE OPR SCH ×2 (06:48→06:54)
[2017-10-14] MEDS: GATIFLOXACIN OP SOLN PER DROP CHARGE OPR SCH ×2 (06:49→06:58)
--- NOTE | 2017-10-14 06:57 | History & Physical Bridge - SC ---
H&P Re-Evaluation Bridge Note: I have examined the patient, reviewed the History & Physical and in the interval since the performance of the History & Physical I have noted the following changes of clinical significance: No changes noted
[2017-10-14 07:21] VITALS: TEMP 36.6
--- NOTE | 2017-10-14 07:21 | Discharge Instructions-SurgCtr ---
Discharge Instructions Date of Service Oct 14, 2017. Visit Reason for Visit: Cartaract Right Eye Discharge Discharge Diagnosis / Problem: cataract Discharge Goals Goal(s): Improve function Activity Recommendations Activity Limitations: per Instructions/Follow-up section Anesthesia . Post Anesthesia Instructions: If you have had General Anesthesia or IV Sedation: * Do not drive today. * Resume driving when surgeon permits. * Do not make important decisions or sign legal documents today. * Call surgeon for: 1. Temperature elevations greater than 101 degrees F. 2. Uncontrollable pain. 3. Excessive bleeding. 4. Persistent nausea and vomiting. 5. Medication intolerance (nausea, vomiting or rash). * For nausea and vomiting use only clear liquids such as: tea, soda, bouillon until nausea subsides, then gradually increase diet as tolerated. * If you have any concerns or questions, call your surgeon's office. If physician is unavailable and it is an emergency, call 911 or go to the nearest emergency room. . Diet Recommendations Home Diet: resume previous diet Procedures Procedures Performed: Right Cataract Phacoemulsification With Intraocular Lens Implant Pending Studies Studies pending at discharge: no Medical Emergencies . Who to Call and When: Medical Emergencies: If at any time you feel your situation is an emergency, please call 911 immediately. . Non-Emergent Contact Non-Emergency issues call your: [employer] . . "Provider Documentation" section prepared by Jay Panchal. .
--- NOTE | 2017-10-14 07:22 | [facility] Operative Report ---
Operative Report Date of Service Oct 14, 2017. Operative Report 1. PREOPERATIVE DIAGNOSIS: Cataract of the right eye. 2. POSTOPERATIVE DIAGNOSIS: Same. 3. PROCEDURE: Phacoemulsification with intraocular lens implantation of the right eye. SURGEON: Dr. Jay Panchal. ANESTHESIA: Topical Lidocaine gel, 1% Non- Preserved intracameral Lidocaine, and monitored intravenous sedation. INDICATIONS FOR THE PROCEDURE: The patient is a 72 - year-old female with a history of cataract of the right eye causing significant visual impairment. The details of the proposed procedure were explained to the patient who asked appropriate questions and following discussion of all risks, benefits and alternatives agreed to have the procedure done. 4. OPERATION AND FINDINGS: DESCRIPTION OF PROCEDURE: After informed consent was obtained, the patient was brought to the Operating Room at the [facility]. The patient was placed in a supine position and then the right eye was prepped and draped in the usual sterile fashion for intraocular surgery. A drop of topical Lidocaine gel was placed in the operative eye. A wire lid speculum was then placed in the fornices. A corneal paracentesis was then created temporally. The Non-Preserved Lidocaine was then instilled into the anterior chamber. The anterior chamber was then pressurized with viscoelastic. A 2.0 mm clear corneal incision was then created temporally. A cystotome was inserted into the anterior chamber and used to create a tear in the anterior lens capsule. This capsular tear was then used to create a small flap and the flap was dragged in a counterclockwise direction in order to create a continuous curvilinear capsulorrhexis. Hydrodissection was accomplished with balanced salt solution. Phacoemulsification of the lens nucleus was then performed in a standard [id number]-[id number] technique. The phaco time was 33 seconds with an average power of 13 %. The remaining cortical material was removed using irrigation aspiration. The capsular bag was then filled with viscoelastic. A Bausch [employer] Lomb MI60L +24.0 diopters lens was then loaded into the injector and injected into the capsular bag. The remaining viscoelastic was removed with the irrigation aspiration handpiece. The wound was hydrated and then checked and found to be watertight. The intraocular pressure was checked and found to be adequate. The wire lid speculum was removed and the patient's face was cleaned and dried. TobraDex ointment was placed in the inferior fornix. The patient was discharged to the Recovery Room having tolerated the procedure well. There were no complications. The patient will be seen tomorrow in the office for follow-up. I attest to the content of the Intraoperative Record and any orders documented therein. Any exceptions are noted below.
--- NOTE | 2017-10-14 07:40 | Anesthesiology Progress Note ---
Anesthesia Post Op Note Date & Time Oct 14, 2017 at 07:40 Vital Signs Pain Intensity: 0 Vital Signs Past 12 Hours Date Time Temp Pulse Resp B/P (MAP) Pulse Ox O2 Delivery O2 Flow Rate FiO2 10/14/17 07:21 36.6 58 16 119/57 (77) 96 Room Air 10/14/17 06:25 36.9 71 16 158/78 (104) 95 Room Air Notes Mental Status: alert / awake / arousable, participated in evaluation Nausea / Vomiting: adequately controlled Pain: adequately controlled Airway Patency, RR, SpO2: stable & adequate BP & HR: stable & adequate Hydration State: stable & adequate Anesthetic Complications: no major complications apparent
[2017-10-14 07:46] VITALS: BP 137/72; PULSE 53; O2SAT 97
== END | disposition home or self-care (01) ==
LOC: X.SURG 06:08
PROVIDERS: ATTEND Ophthalmology
DX: H26.9 Unspecified cataract (principal); J45.909 Unspecified asthma, uncomplicated; K21.9 Gastro-esophageal reflux disease without esophagitis; E78.5 Hyperlipidemia, unspecified; I10 Essential (primary) hypertension; E66.9 Obesity, unspecified; E11.9 Type 2 diabetes mellitus without complications; N18.4 Chronic kidney disease, stage 4 (severe); Z79.4 Long term (current) use of insulin; Z86.718 Personal history of other venous thrombosis and embolism; M16.10 Unilateral primary osteoarthritis, unspecified hip; G47.33 Obstructive sleep apnea (adult) (pediatric); Z99.89 Dependence on other enabling machines and devices

== ENCOUNTER → 2017-10-27 | Outpatient (CLI) | payer BC ==
[~2017-10-27] MED LIST changes: -500ML BSS 0.3ML EPI 1:1000PF IRRIG ONE; -ACETAMINOPHEN 325 MG TAB PO PRN; -AMVISC PLUS 0.8ML SYRINGE INT OCU ONE; -ATROPINE SULFATE 0.1 MG/ML 5ML SYR IV PRN; -BSS FLUSH ONE; -BUME1TAB45 PO; -CIPR1TAB11 PO; +CLON0.5T3 PO; -CPR500 PO; -CYCLOPENTOLATE HCL 1% OP SOLN PER DROP CHARGE OPR SCH; -EpHEDrine SULFATE INJ 50 MG/ML AMP IV PRN; -EpINEphrine INJ 1MG/ML AMP 1 MG/ML AMP ONE; -GATIFLOXACIN OP SOLN PER DROP CHARGE OPR SCH; -INSU100I23 SC; -IPRA-64 INH; +IPRASOL4 INH; -KETOROLAC 0.5% OP SOLN PER DROP CHARGE OPR SCH; -KFL/250 PO; -KFL250 PO; -KLN/5 PO; -LACTATED RINGER'S 1000ML 500 ML IV SCH; -LEVO50TA6 PO; -LIDOCAINE 3.5% OPH GEL PER APPLICATION CHARGE ONE; -LIDOCAINE HCL 1% MPF 2 ML VIAL ONE; -MCRK20 PO; +METO25TA3 PO; -METO25TA4 PO; -MIDAZOLAM HCL 1 MG/ML 2ML VIAL ONE; -OCUCOAT 1 ML SOLN IO ONE; -OXYC-57 PO; -PANT1TAB4 PO; -PHENYLEPHRINE HCL 10% OP SOLN PER DROP CHARGE OPR SCH; -PHENYLEPHRINE HCL 2.5% OP SOLN PER DROP CHARGE OPR SCH; -POTA-639 PO; -POVIDONE-IODINE OP SOLN 30 ML BTL ONE; -PROPARACAINE 0.5% OP SOLN PER DROP CHARGE OPR SCH; -PSEU60TA80 PO; -SILV1CRE99 TOP; -TOBRAMYCIN/DEXAMETHASONE OPH OINT PER APPLN CHARGE ONE; -TPRSR25 PO; -TROPICAMIDE 1% OP SOLN PER DROP CHARGE OPR SCH
== END | disposition home or self-care (01) ==
LOC: C.LAB1850 12:18
PROVIDERS: ATTEND Nurse Practitioner Family
DX: R39.9 Unspecified symptoms and signs involving the genitourinary system (principal)

== ENCOUNTER → 2017-11-04 | Day surgery (SDC) | payer BC ==
[2017-10-21 12:07] VITALS: Ht 154.9 cm; Wt 102.7 kg
[~2017-11-04] VITALS: Ht 154.9 cm; Wt 102.7 kg
[~2017-11-04] MED LIST changes: +500ML BSS 0.3ML EPI 1:1000PF IRRIG ONE; +ACETAMINOPHEN 325 MG TAB PO PRN; +AMVISC PLUS 0.8ML SYRINGE INT OCU ONE; +ATROPINE SULFATE 0.1 MG/ML 5ML SYR IV PRN; +BSS FLUSH ONE; +EpHEDrine SULFATE INJ 50 MG/ML AMP IV PRN; +EpINEphrine INJ 1MG/ML AMP 1 MG/ML AMP ONE; -INSDGI SC; +INSU100I23 SC; +LACTATED RINGER'S 1000ML 500 ML IV SCH; +LIDOCAINE 3.5% OPH GEL PER APPLICATION CHARGE ONE; +LIDOCAINE HCL 1% MPF 2 ML VIAL ONE; +MIDAZOLAM HCL 1 MG/ML 2ML VIAL ONE; +OCUCOAT 1 ML SOLN IO ONE; +ONDANSETRON INJ 2 MG/ML 2 ML VIAL IV PRN; +PHENYLEPHRINE HCL 10% OP SOLN PER DROP CHARGE OPL SCH; +POVIDONE-IODINE OP SOLN 30 ML BTL ONE; +PROPARACAINE 0.5% OP SOLN PER DROP CHARGE OPL SCH; +TOBRAMYCIN/DEXAMETHASONE OPH OINT PER APPLN CHARGE ONE
[2017-11-04] MEDS: PHENYLEPHRINE HCL 2.5% OP SOLN PER DROP CHARGE OPL SCH ×2 (06:41→06:47)
[2017-11-04] MEDS: TROPICAMIDE 1% OP SOLN PER DROP CHARGE OPL SCH ×2 (06:42→06:48)
[2017-11-04] MEDS: CYCLOPENTOLATE HCL 1% OP SOLN PER DROP CHARGE OPL SCH ×2 (06:43→06:50)
[2017-11-04] MEDS: KETOROLAC 0.5% OP SOLN PER DROP CHARGE OPL SCH ×2 (06:44→06:51)
[2017-11-04] MEDS: GATIFLOXACIN OP SOLN PER DROP CHARGE OPL SCH ×2 (06:45→06:56)
--- NOTE | 2017-11-04 07:23 | [facility] Operative Report ---
Operative Report Date of Service Nov 04, 2017. Operative Report 1. PREOPERATIVE DIAGNOSIS: Cataract of the left eye. 2. POSTOPERATIVE DIAGNOSIS: Same. 3. PROCEDURE: Phacoemulsification with intraocular lens implantation of the left eye. SURGEON: Dr. Jay Panchal. ANESTHESIA: Topical Lidocaine gel, 1% Non- Preserved intracameral Lidocaine, and monitored intravenous sedation. INDICATIONS FOR THE PROCEDURE: The patient is a 72 - year-old female with a history of cataract of the left eye causing significant visual impairment. The details of the proposed procedure were explained to the patient who asked appropriate questions and following discussion of all risks, benefits and alternatives agreed to have the procedure done. 4. OPERATION AND FINDINGS: DESCRIPTION OF PROCEDURE: After informed consent was obtained, the patient was brought to the Operating Room at the [facility]. The patient was placed in a supine position and then the left eye was prepped and draped in the usual sterile fashion for intraocular surgery. A drop of topical Lidocaine gel was placed in the operative eye. A wire lid speculum was then placed in the fornices. A corneal paracentesis was then created temporally. The Non-Preserved Lidocaine was then instilled into the anterior chamber. The anterior chamber was then pressurized with viscoelastic. A 2.0 mm clear corneal incision was then created temporally. A cystotome was inserted into the anterior chamber and used to create a tear in the anterior lens capsule. This capsular tear was then used to create a small flap and the flap was dragged in a counterclockwise direction in order to create a continuous curvilinear capsulorrhexis. Hydrodissection was accomplished with balanced salt solution. Phacoemulsification of the lens nucleus was then performed in a standard [id number]-bef-vdsopfg technique. The phaco time was 34 seconds with an average power of 12 %. The remaining cortical material was removed using irrigation aspiration. The capsular bag was then filled with viscoelastic. A Bausch & Lomb MI60L +23.5 diopters lens was then loaded into the injector and injected into the capsular bag. The remaining viscoelastic was removed with the irrigation aspiration handpiece. The wound was hydrated and then checked and found to be watertight. The intraocular pressure was checked and found to be adequate. The wire lid speculum was removed and the patient's face was cleaned and dried. TobraDex ointment was placed in the inferior fornix. The patient was discharged to the Recovery Room having tolerated the procedure well. There were no complications. The patient will be seen tomorrow in the office for follow-up. I attest to the content of the Intraoperative Record and any orders documented therein. Any exceptions are noted below.
--- NOTE | 2017-11-04 07:24 | Discharge Instructions-SurgCtr ---
Discharge Instructions Date of Service Nov 04, 2017. Visit Reason for Visit: Cataract Left Eye Discharge Discharge Diagnosis / Problem: cataract Discharge Goals Goal(s): Improve function Activity Recommendations Activity Limitations: per Instructions/Follow-up section Anesthesia . Post Anesthesia Instructions: If you have had General Anesthesia or IV Sedation: * Do not drive today. * Resume driving when surgeon permits. * Do not make important decisions or sign legal documents today. * Call surgeon for: 1. Temperature elevations greater than 101 degrees F. 2. Uncontrollable pain. 3. Excessive bleeding. 4. Persistent nausea and vomiting. 5. Medication intolerance (nausea, vomiting or rash). * For nausea and vomiting use only clear liquids such as: tea, soda, bouillon until nausea subsides, then gradually increase diet as tolerated. * If you have any concerns or questions, call your surgeon's office. If physician is unavailable and it is an emergency, call 911 or go to the nearest emergency room. . Diet Recommendations Home Diet: resume previous diet Procedures Procedures Performed: Left Cataract Phacoemulsification With Intraocular Lens Implant Pending Studies Studies pending at discharge: no Medical Emergencies . Who to Call and When: Medical Emergencies: If at any time you feel your situation is an emergency, please call 911 immediately. . Non-Emergent Contact Non-Emergency issues call your: [employer] . . "Provider Documentation" section prepared by Jay Panchal. .
[2017-11-04 07:26] VITALS: TEMP 36.2
--- NOTE | 2017-11-04 07:50 | Anesthesia Progress Nt - [facility] ---
Anesthesia Post Op Note Date & Time Nov 04, 2017 at 07:50 Vital Signs Pain Intensity: 0 Vital Signs Past 12 Hours Date Time Temp Pulse Resp B/P (MAP) Pulse Ox O2 Delivery O2 Flow Rate FiO2 11/04/17 07:26 36.2 60 20 138/64 (88) 95 Room Air 11/04/17 06:33 37.1 69 20 147/70 (95) 95 Room Air Notes Mental Status: alert / awake / arousable, participated in evaluation Pt Amnestic to Procedure: Yes Nausea / Vomiting: adequately controlled Pain: adequately controlled Airway Patency, RR, SpO2: stable & adequate BP & HR: stable & adequate Hydration State: stable & adequate Anesthetic Complications: no major complications apparent
[2017-11-04 07:52] VITALS: BP 112/68; PULSE 56; O2SAT 94
== END | disposition home or self-care (01) ==
LOC: X.SURG 06:05
PROVIDERS: ATTEND Ophthalmology
DX: H26.9 Unspecified cataract (principal); G47.33 Obstructive sleep apnea (adult) (pediatric); J45.909 Unspecified asthma, uncomplicated; I12.9 Hypertensive chronic kidney disease with stage 1 through stage 4 chronic kidney disease, or unspecified chronic kidney disease; N18.4 Chronic kidney disease, stage 4 (severe); K21.9 Gastro-esophageal reflux disease without esophagitis; E11.9 Type 2 diabetes mellitus without complications; Z99.89 Dependence on other enabling machines and devices; Z90.710 Acquired absence of both cervix and uterus; Z68.41 Body mass index [BMI] 40.0-44.9, adult

== ENCOUNTER → 2017-11-12 | Day surgery (SDC) | payer BC ==
--- NOTE | 2017-11-11 19:35 | History and Physical ---
History & Physical Date of Service Nov 11, 2017. History & Physical 72-year-old female with possible subglottic stenosis here for bronchoscopic evaluation: The patient is a 72-year-old female with a PmHx: Of asthma, sleep apnea, neck abscess, allergic rhinitis, presumed coronary artery disease, GERD, paroxysmal atrial fibrillation (warfarin) in stage 4 kidney disease. She is followed by Dr. Roderick Ruano in on recent evaluation there was CT of the neck on 03/28/[address] noncontrast of the chest on showing possible subglottic stenosis. Patient also has pulmonary function test performed 03/28/2017 in which her flow volume loops are consistent with upper airway obstruction/fixed obstruction. Patient has been seen by the ENT physician Dr. Jass Taylor with laryngoscopy performed in no abnormal findings in the upper airway. At this time the patient notes her pulmonary status is stable but continues to have some dyspnea on exertion not consistent with classic cardiac chest pain and notable inspiratory expiratory stridor is changes. Patient has also undergone a fine-needle aspiration of a thyroid nodule notably benign performed 08/13/2017. Active Problems 1. Abnormal findings on diagnostic imaging of breast 2. Allergic rhinitis 3. Anticoagulant long-term use 4. Arteriosclerosis of coronary artery 5. Asthma 6. Cataract 7. Cellulitis 8. Cough 9. Depression 10. Dyslipidemia 11. Elevated TSH 12. Essential hypertension 13. GERD without esophagitis 14. Hoarseness 15. Insomnia 16. Lichen sclerosus 17. Nodule of left lobe of thyroid gland 18. Obesity 19. Obstructive sleep apnea of adult 20. Osteopenia 21. 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 Stage 4 chronic kidney disease 24. Type 2 diabetes mellitus, uncontrolled 25. Urinary tract infection 26. Venous insufficiency (chronic) (peripheral) Surgical History 1. History of adenoidectomy 2. History of Hand Surgery 3. History of Hysterectomy 4. History of Knee Surgery 5. History of Salpingo-oophorectomy Bilateral 6. History of Tonsillectomy Family History 1. Family history of malignant neoplasm of uterus 2. Family history of ovarian cancer 3. FHx: allergies 4. Family history of liver cancer 5. Family history of malignant neoplasm of uterus Social History Always uses seat belt Dental care, regularly Living situation Never a smoker Never exercises (Z78.9) Never used moist powdered tobacco (Z78.9) No alcohol use No drug use Not currently sexually active Retired Secondhand smoke exposure (Z77.22) Single Denied: History of Special needs due to hearing impairment Denied: History of Special needs due to visual impairment Current Meds 1. Azelastine HCl - 0.1 % Nasal Solution; INSERT 2 SQUIRTS IN EACH NOSTRIL TWICE 2. Fexofenadine HCl - 180 MG Oral Tablet; TAKE 1 TABLET DAILY NEEDED FOR 3. Mucinex 600 MG Oral Tablet Extended Release 12 Hour; TAKE 1 TABLET EVERY 12 4. Montelukast Sodium 10 MG Oral Tablet; TAKE 1 TABLET AT BEDTIME 5. Isosorbide Mononitrate ER 30 MG Oral Tablet Extended Release 24 Hour; TAKE 3 6. Nitrostat 0.4 MG Sublingual Tablet Sublingual; PLACE 1 TABLET UNDER THE TONGUE 7. Ipratropium-Albuterol 0.5-2.5 (3) MG/3ML Inhalation Solution; ADMINISTER ONE 3 ML 8. ProAir HFA 108 (90 Base) MCG/ACT Inhalation Aerosol Solution; INHALE 1 TO 2 PUFFS EVERY 4 TO 6 HOURS NEEDED; 9. Pulmicort Flexhaler 180 MCG/ACT Inhalation Aerosol Powder Breath Activated; INHALE 2 PUFFS, BY MOUTH, TWICE DAILY. RINSE MOUTH AFTER USE Requested 10. Spiriva HandiHaler 18 MCG Inhalation Capsule; INHALE CONTENTS OF 1 CAPSULE 11. DULoxetine HCl - 30 MG Oral Capsule Delayed Release Particles; TAKE 1 CAPSULE 12. Fenofibric Acid 135 MG Oral Capsule Delayed Release; TAKE 1 CAPSULE DAILY; 13. Vytorin 10-40 MG Oral Tablet; TAKE 1 TABLET AT BEDTIME; 14. Metoprolol Tartrate 25 MG Oral Tablet; take 1/2 tablet daily; 15. Pantoprazole Sodium 40 MG Oral Tablet Delayed Release; TAKE 1 TABLET DAILY; 16. ClonazePAM 0.5 MG Oral Tablet; TAKE 1 TABLET AT BEDTIME 17. Vitamin D (Ergocalciferol) 29993 UNIT Oral Capsule; TAKE 1 CAPSULE EVERY 4 18. Warfarin Sodium 1 MG Oral Tablet; TAKE DIRECTED 19. Warfarin Sodium 5 MG Oral Tablet; TAKE 1 TABLET DAILY DIRECTED 20. Metoclopramide HCl - 10 MG Oral Tablet; Take one tablet with dinner; 21. Allopurinol 100 MG Oral Tablet; TAKE 1 TABLET EVERY DAY; 22. Colace 100 MG Oral Capsule; TAKE 1 CAPSULE 4 TIMES DAILY; 23. Calcitriol 0.5 MCG Oral Capsule; TAKE 1 CAPSULE Daily; 24. Basaglar KwikPen 100 UNIT/ML Subcutaneous Solution Pen-injector; INJECT 50 UNITS 25. BD Pen Needle Mini U/F 31G X 5 MM; USE DIRECTED; 26. Januvia 100 MG Oral Tablet; TAKE 1 TABLET EVERY DAY; 27. NovoLOG FlexPen 100 UNIT/ML Subcutaneous Solution Pen-injector; INJECT 10 TO 20 28. OneTouch Delica Lancets 33G; test 4 times a day; 29. OneTouch Ultra Blue In Vitro Strip; Test 4 times daily; 30. Ultra-Thin II Mini Pen Needle 31G X 5 MM; USE DIRECTED; 31. Sulfamethoxazole-Trimethoprim 800-160 MG Oral Tablet; Take 1 tablet twice daily; 32. Bumetanide 2 MG Oral Tablet; TAKE 1 TABLET TWICE DAILY; 33. Spironolactone 50 MG Oral Tablet; TAKE 1 TABLET TWICE DAILY; 34. ProAir HFA AERS; 35. Sudafed TABS; Take 1 tablet twice daily; Allergies 1. Biaxin TABS Immunizations DTP/DTaP --- Series1: 14-Aug-2012 Influenza --- Series1: 05-Aug-2011; Series2: 14-Aug-2012; Series3: 15-Jul-2013; Series4: 20-Jul-2014; Series5: 13-Jul-2015; Series6: 19-Jun-2016; Series7: 21-Jul-2017 PCV --- Series1: 18-Sep-2016 Vitals Height: 5 ft 1.5 in Weight: 221 lb 4 oz BMI Calculated: 41.13 BSA Calculated: 1.98 Blood Pressure: 126 / 80, RUE, Sitting O2 Saturation: 94, RA Respiration: 16 Temperature: 99.1 F Heart Rate: 84 Physical Exam Pulmonary Auscultation of lungs: Abnormal. Fixed inspiratory expiratory changes noted by auscultation of the trachea. Cardiovascular Examination of extremities for edema and/or varicosities: Abnormal. 1+ pitting edema bilateral lower extremities.
[2017-11-12] VITALS (7 sets, daily range): BP systolic 124–165; BP diastolic 40–65; PULSE 60–83; TEMP 36–37; O2SAT 94–99; Ht 154.9 cm; Wt 101.0 kg
[~2017-11-12] VITALS: Ht 154.9 cm; Wt 101.0 kg
[~2017-11-12] MED LIST changes: -500ML BSS 0.3ML EPI 1:1000PF IRRIG ONE; -ACETAMINOPHEN 325 MG TAB PO PRN; -AMVISC PLUS 0.8ML SYRINGE INT OCU ONE; -ATROPINE SULFATE 0.1 MG/ML 5ML SYR IV PRN; -BSS FLUSH ONE; -EpHEDrine SULFATE INJ 50 MG/ML AMP IV PRN; -EpINEphrine INJ 1MG/ML AMP 1 MG/ML AMP ONE; +FENTANYL CITRATE INJ 50 MCG/1 ML 2 ML VIAL IV ONE; -LACTATED RINGER'S 1000ML 500 ML IV SCH; -LIDOCAINE 3.5% OPH GEL PER APPLICATION CHARGE ONE; +LIDOCAINE 4% INH SOLN 4 ML BTL TOP ONE; -LIDOCAINE HCL 1% MPF 2 ML VIAL ONE; +LIDOCAINE HCL 2% LOCAL 50ML VIAL INSTIL ONE; +LIDOCAINE VISCOUS 2% 100ML TOP ONE; -MIDAZOLAM HCL 1 MG/ML 2ML VIAL ONE; +MIDAZOLAM HCL 5 MG/ML 1 ML VIAL IV ONE; +NURSING VERBAL MED ORDER ONE; -OCUCOAT 1 ML SOLN IO ONE; -ONDANSETRON INJ 2 MG/ML 2 ML VIAL IV PRN; -PHENYLEPHRINE HCL 10% OP SOLN PER DROP CHARGE OPL SCH; -POVIDONE-IODINE OP SOLN 30 ML BTL ONE; -PROPARACAINE 0.5% OP SOLN PER DROP CHARGE OPL SCH; +SODIUM CHLORIDE 0.9% 500ML 500 ML IV SCH; -TOBRAMYCIN/DEXAMETHASONE OPH OINT PER APPLN CHARGE ONE
--- NOTE | 2017-11-12 10:10 | Pre Sedation Assessment ---
Pre Sedation Assessment General Date of Sedation: Nov 12, 2017. Vital Signs Past 12 Hours Date Time Temp Pulse Resp B/P (MAP) Pulse Ox O2 Delivery O2 Flow Rate FiO2 11/12/17 08:50 37 83 20 165/65 (98) 96 Room Air Review Cardiovascular: regular rate, rhythm, no edema, no gallop, no JVD, no murmur, normal peripheral pulses Lungs: chest non-tender, no respiratory distress, + stridor Pre-Sedation Airway Assessment Smoking Status: Never Smoker Hx of Sleep Apnea: Yes Hx of difficult intubation: No Short Thick Neck: Yes Thyro-mental Distance: > 3 Finger Breadths Oral Cavity: Dentures (upper) Mallampati Classification: Class III ASA Classification: Class III NPO Status Date of Last Intake of Fluids: Nov 11, 2017 Time of Last Intake of Fluids: 2244 Date of Last Intake of Solids: Nov 11, 2017 Time of Last Intake of Solids: 2244 Procedure Planning Contraindications for Sedation: None Current Medications Reviewed: Yes Notes The planned sedation has been discussed with the patient. Informed Consent was obtained. I have identified the patient, determined the appropriateness of sedation and have assessed the patient immediately prior to the procedure. All medicine(s) and interventions are by my order.
--- NOTE | 2017-11-12 11:03 | Bronchoscopy Procedure Note ---
Bronchoscopy Procedure Note Procedure: Bronchoscopy, conscious sedation Consent: Obtained through the patient placed into the chart Pre-procedural diagnosis: Subglottic stenosis Post-procedural diagnosis: Subglottic stenosis Start time: 1040 End time: 1045 Total time: 5minutes Analgesia: 2% liquid lidocaine: Via nebulizer 4% gel lidocaine: Via right naris 2% liquid lidocaine: Via bronchoscopy Sedation: Versed IV: 2mg Fentanyl IV: 50g Procedure: The Olympus video bronchoscope was used for this procedure and passed down through the right naris, notable erythema Right naris/posterior naris/posterior oropharynx: Anatomically within normal limits, notable erythema, posterior or pharyngeal cobblestoning Glottis: Anatomically within normal limits Vocal cords: Proper abduction and abduction, anatomically within normal limits Subglottis: At the level of a right below the cricoid heart which approximately 1 cm below the true vocal cords there was an area of severe stenosis down to approximately 4-5 mm. I was able to pass the scope quickly through in the area webbing is approximately 2-3 mm and caudal the cephalad length. Trachea: I was only able to view approximately 10 cm in the trachea beyond the level of stenosis which appeared to be within normal limits. EBL: None Complications: None Follow-up: ASU
--- NOTE | 2017-11-12 11:06 | Discharge Instructions ---
Discharge Instructions Date of Service Nov 12, 2017. Admission Reason for Admission: Abnormal Imaging, Shortness Of Breath, Cough Discharge Discharge Diagnosis / Problem: subglottic stenosis Discharge Goals Goal(s): Diagnostic testing Activity Recommendations Activity Limitations: resume your previous activity . Instructions / Follow-Up Instructions / Follow-Up Follow-up in the [facility] with Dr. Gregory Flores Current Hospital Diet Patient's current hospital diet: Discharge Diet Recommended Diet: Regular Diet Procedures Procedures Performed: BRONCHOSCOPY, conscious sedation Pending Studies Studies pending at discharge: no Laboratory Results Hemoglobin A1c Test 09/26/17 09:32 Range/Units Estimated Average Glucose 186 mg/dl Hemoglobin A1c 8.1 H 4.5-5.6 % Medical Emergencies . Who to Call and When: Medical Emergencies: If at any time you feel your situation is an emergency, please call 911 immediately. . Non-Emergent Contact Non-Emergency issues call your: Community Relations Advisor . . "Provider Documentation" section prepared by Gregory Flores. . VTE Core Measure Inpt VTE Proph given/why not?: Warfarin (Coumadin)
== END | disposition home or self-care (01) ==
LOC: C.ACU 08:10
PROVIDERS: ATTEND Internal Medicine Critical Care Medicine
DX: J38.6 Stenosis of larynx (principal); J45.909 Unspecified asthma, uncomplicated; G47.33 Obstructive sleep apnea (adult) (pediatric); K21.9 Gastro-esophageal reflux disease without esophagitis; I48.0 Paroxysmal atrial fibrillation; N18.4 Chronic kidney disease, stage 4 (severe); I25.10 Atherosclerotic heart disease of native coronary artery without angina pectoris; F32.9 Major depressive disorder, single episode, unspecified; E78.5 Hyperlipidemia, unspecified; I12.9 Hypertensive chronic kidney disease with stage 1 through stage 4 chronic kidney disease, or unspecified chronic kidney disease; E66.9 Obesity, unspecified; E11.22 Type 2 diabetes mellitus with diabetic chronic kidney disease; Z79.899 Other long term (current) drug therapy; Z79.01 Long term (current) use of anticoagulants; Z79.4 Long term (current) use of insulin

== ENCOUNTER → 2017-12-08 | Outpatient (CLI) | payer BC ==
[~2017-12-08] MED LIST changes: -FENTANYL CITRATE INJ 50 MCG/1 ML 2 ML VIAL IV ONE; -LIDOCAINE 4% INH SOLN 4 ML BTL TOP ONE; -LIDOCAINE HCL 2% LOCAL 50ML VIAL INSTIL ONE; -LIDOCAINE VISCOUS 2% 100ML TOP ONE; -METO25TA3 PO; +METO25TA4 PO; -MIDAZOLAM HCL 5 MG/ML 1 ML VIAL IV ONE; -NURSING VERBAL MED ORDER ONE; -SODIUM CHLORIDE 0.9% 500ML 500 ML IV SCH
== END | disposition home or self-care (01) ==
LOC: C.LAB 15:43
PROVIDERS: ATTEND Nurse Practitioner Family
DX: N39.0 Urinary tract infection, site not specified (principal)

== ENCOUNTER → 2017-12-25 | Outpatient (CLI) | payer BC ==
[2017-12-25 09:34] LABS: BASO % 0.3 %; BASO ABS # 0.03 K/uL (0-0.2); EOS % 3.5 %; EOS ABS # 0.34 K/uL (0-0.5); HEMOGLOBIN 13.4 g/dL (12.0-16.0); IG# 0.09 K/uL (0.00-0.02); LYMPH % 15.6 %; LYMPH ABS # 1.52 K/uL (1.2-3.4); MEAN CELL VOLUME 90.7 fL (80-100); MEAN CORPUSCULAR HEMOGLOBIN 30.4 pg (25-34); MEAN CORPUSCULAR HGB CONC 33.5 g/dl (32-36); MEAN PLATELET VOLUME 10.3 fL (7.4-10.4); MONO % 5.4 %; MONO ABS # 0.53 K/uL (0.11-0.59); NEUT % 74.3 %; NEUT ABS # 7.24 K/uL (1.4-6.5); PLATELET COUNT 209 K/uL (130-400); RED CELL DISTRIBUTION WIDTH CV 13.8 % (11.5-14.5); RED CELL DISTRIBUTION WIDTH SD 45.2 fL (36.4-46.3); WHITE BLOOD COUNT 9.75 K/uL (4.8-10.8)
[2017-12-25 09:53] LABS: ALT/SGPT 25 U/L (12-78); AST/SGOT 13 U/L (15-37); BLOOD UREA NITROGEN 71 mg/dl (7-18); CALCIUM 9.8 mg/dl (8.5-10.1); CARBON DIOXIDE 29 mmol/L (21-32); CREATININE 2.41 mg/dl (0.60-1.20); GLUCOSE 330 mg/dl (70-99); POTASSIUM 3.9 mmol/L (3.5-5.1); SODIUM 131 mmol/L (136-145); TOTAL PROTEIN 7.9 gm/dl (6.4-8.2)
[2017-12-25 09:54] LABS: ALKALINE PHOSPHATASE 37 U/L (45-117); PHOSPHORUS 4.4 mg/dl (2.5-4.9)
[2017-12-25 10:45] LABS: HEMOGLOBIN A1C 9.6 % (4.5-5.6)
[2017-12-25 10:50] LABS: CREATININE RANDOM URINE 21.4 mg/dl
== END | disposition home or self-care (01) ==
LOC: C.LAB 07:35
PROVIDERS: ATTEND Nurse Practitioner Family
DX: E11.65 Type 2 diabetes mellitus with hyperglycemia (principal); N18.4 Chronic kidney disease, stage 4 (severe)

== ENCOUNTER → 2018-01-15 | Outpatient (CLI) | payer BC ==
[~2018-01-15] MED LIST changes: +LEVO50TA6 PO; +PSEU60TA80 PO
== END | disposition home or self-care (01) ==
LOC: C.LAB 11:51
PROVIDERS: ATTEND Nurse Practitioner Family
DX: R39.9 Unspecified symptoms and signs involving the genitourinary system (principal); R94.6 Abnormal results of thyroid function studies

== ENCOUNTER → 2018-01-15 | Outpatient (CLI) | payer BC | END | disposition home or self-care (01) | LOC: C.LABSPEC 17:43 | PROVIDERS: ATTEND Nurse Practitioner Family | DX: R39.9 Unspecified symptoms and signs involving the genitourinary system (principal) ==

== ENCOUNTER → 2018-02-05 | Day surgery (SDC) | payer BC ==
[2018-01-20 09:29] VITALS: BMI 43.0
[2018-01-29 10:14] LABS: CALCIUM 9.7 mg/dl (8.5-10.1); CREATININE 2.84 mg/dl (0.60-1.20); POTASSIUM 3.8 mmol/L (3.5-5.1)
[~2018-02-05] VITALS: Ht 154.9 cm; Wt 101.0 kg
[~2018-02-05] MED LIST changes: +ATROPINE SULFATE 0.1 MG/ML 5ML SYR IV PRN; +EpHEDrine SULFATE INJ 50 MG/ML AMP IV PRN; +FENTANYL CITRATE INJ 50 MCG/1 ML 2 ML VIAL IV PRN; +FENTANYL CITRATE INJ 50 MCG/1 ML 2 ML VIAL ONE; +GLYCOPYRROLATE INJ 0.2 MG/ML VIAL ONE; -GUAIFENESIN PO; +KETAMINE HCL INJ 50 MG/ML 10 ML VIAL ONE; +LIDOCAINE HCL 2% 2 ML VIAL (20MG/ML) ONE; +MIDAZOLAM HCL 1 MG/ML 2ML VIAL ONE; +ONDANSETRON INJ 2 MG/ML 2 ML VIAL IV PRN; +PROPOFOL IV EMULSION 10 MG/ML 100 ML VIAL IV ONE; +PROPOFOL IV EMULSION 10 MG/ML 20 ML VIAL IV ONE; +REMIFENTANIL 1 MG VIAL ONE; +ROCURONIUM BROMIDE 10 MG/ML 5 ML VIAL IV ONE; +SODIUM CHLORIDE 0.9% 1000ML 1,000 ML IV SCH
--- NOTE | 2018-02-05 07:20 | History and Physical ---
History & Physical Date of Service Feb 05, 2018. History & Physical 72-year-old female presents here for rigid bronchoscopic intervention on tracheal stenosis/subglottic stenosis: Patient underwent fiberoptic bronchoscopy on 11/12/2017 it was noted to have significant subglottic stenosis down to 5 mm opening. This is approximately 1 cm below the true vocal cords and approximately 2-3 millimeters in total caudal to cephalad depth. Patient was accompanied by her sisters today and we reviewed her bronchoscopic images and previous history. We spoke at length about moving forward with rigid bronchoscopic approach for subglottic opening. Review of Systems Constitutional: negative. Eyes: negative. ENT: negative. Cardiovascular: negative. Respiratory: negative and as noted in HPI. Gastrointestinal: negative. Genitourinary: negative. Musculoskeletal: negative. Integumentary: negative. Neurological: negative. Psychiatric: negative. Endocrine: negative. Hematologic/Lymphatic: negative. Active Problems 1. Tracheal stenosis 2. Diabetes mellitus 3. Allergic rhinitis 4. Anticoagulant long-term use 5. Arteriosclerosis of coronary artery 6. History of Congestive heart failure (CHF) (EF= 55%, grade 1 diastolic dysfunctioning) 7. Asthma 8. Cataract 9. Cellulitis 10. Cough 11. Depression 12. Dyslipidemia 13. Elevated TSH 14. Essential hypertension 15. Fungal skin infection 16. GERD without esophagitis 17. Insomnia 18. Nodule of left lobe of thyroid gland 19. Obesity 20. Obstructive sleep apnea of adult 21. Osteopenia 22. Paroxysmal atrial fibrillation (warfarin) 23. Stage 4 chronic kidney disease 24. Type 2 diabetes mellitus, uncontrolled 25. Venous insufficiency (chronic) (peripheral) 26. History of neck abscess 27. History cellulitis of the 1st toe 28. History of gastroparesis/GERD 29. History decubitus ulcer 30. History of herpes zoster Surgical History 1. History of adenoidectomy 2. History of Hand Surgery 3. History of Hysterectomy 4. History of Knee Surgery 5. History of Salpingo-oophorectomy Bilateral 6. History of Tonsillectomy Family History 1. Family history of malignant neoplasm of uterus (Z80.49) 2. Family history of ovarian cancer (Z80.41) 3. FHx: allergies (Z84.89) 4. Family history of liver cancer (Z80.0) 5. Family history of malignant neoplasm of uterus (Z80.49) Social History Always uses seat belt Dental care, regularly Living situation Never a smoker Never exercises Never used moist powdered tobacco No alcohol use No drug use Not currently sexually active Retired Secondhand smoke exposure Single Current Meds 1. Azelastine HCl - 0.1 % Nasal Solution; INSERT 2 SQUIRTS IN EACH NOSTRIL TWICE 2. Fexofenadine HCl - 180 MG Oral Tablet; TAKE 1 TABLET DAILY NEEDED FOR 3. Mucinex 600 MG Oral Tablet Extended Release 12 Hour; TAKE 1 TABLET EVERY 12 4. Montelukast Sodium 10 MG Oral Tablet; TAKE 1 TABLET AT BEDTIME; 5. Isosorbide Mononitrate ER 30 MG Oral Tablet Extended Release 24 Hour; TAKE 3 6. Nitrostat 0.4 MG Sublingual Tablet Sublingual; PLACE 1 TABLET UNDER THE TONGUE 7. Ipratropium-Albuterol 0.5-2.5 (3) MG/3ML Inhalation Solution; ADMINISTER ONE 3 ML 8. ProAir HFA 108 (90 Base) MCG/ACT Inhalation Aerosol Solution; INHALE 1 TO 2 PUFFS 9. Pulmicort Flexhaler 180 MCG/ACT Inhalation Aerosol Powder Breath Activated; INHALE 2 10. Spiriva HandiHaler 18 MCG Inhalation Capsule; INHALE CONTENTS OF 1 CAPSULE 11. DULoxetine HCl - 30 MG Oral Capsule Delayed Release Particles; TAKE 1 CAPSULE 12. Fenofibric Acid 135 MG Oral Capsule Delayed Release; TAKE 1 CAPSULE DAILY; 13. Vytorin 10-40 MG Oral Tablet; TAKE 1 TABLET AT BEDTIME; 14. Metoprolol Tartrate 25 MG Oral Tablet; take 1/2 tablet daily; 15. Pantoprazole Sodium 40 MG Oral Tablet Delayed Release; TAKE 1 TABLET DAILY; 16. ClonazePAM 0.5 MG Oral Tablet; TAKE 1 TABLET AT BEDTIME; 17. Vitamin D (Ergocalciferol) 96580 UNIT Oral Capsule; TAKE 1 CAPSULE EVERY 4 18. Warfarin Sodium 1 MG Oral Tablet; TAKE DIRECTED 19. Warfarin Sodium 5 MG Oral Tablet; TAKE 1 TABLET DAILY DIRECTED 20. Metoclopramide HCl - 10 MG Oral Tablet; Take one tablet with dinner; 21. Allopurinol 100 MG Oral Tablet; TAKE 1 TABLET EVERY DAY; 22. Colace 100 MG Oral Capsule; TAKE 1 CAPSULE 4 TIMES DAILY; 23. Calcitriol 0.5 MCG Oral Capsule; TAKE 1 CAPSULE Daily; 24. Basaglar KwikPen 100 UNIT/ML Subcutaneous Solution Pen-injector; INJECT 50 UNITS 25. BD Pen Needle Mini U/F 31G X 5 MM; USE DIRECTED; 26. Januvia 100 MG Oral Tablet; TAKE 1 TABLET EVERY DAY; 27. NovoLOG FlexPen 100 UNIT/ML Subcutaneous Solution Pen-injector; INJECT 10 TO 20 28. OneTouch Delica Lancets 33G; test 4 times a day; 29. OneTouch Ultra Blue In Vitro Strip; Test 4 times daily; 30. Ultra-Thin II Mini Pen Needle 31G X 5 MM; USE DIRECTED; 31. Bumetanide 2 MG Oral Tablet; TAKE 1 TABLET TWICE DAILY; 32. Spironolactone 50 MG Oral Tablet; TAKE 1 TABLET TWICE DAILY; 33. ProAir HFA AERS; 34. Sudafed TABS; Take 1 tablet twice daily; Allergies 1. Biaxin TABS Immunizations DTP/DTaP --- Series1: 14-Aug-2012 Influenza --- Series1: 05-Aug-2011; Series2: 14-Aug-2012; Series3: 15-Jul-2013; Series4: 20-Jul-2014; Series5: 13-Jul-2015; Series6: 19-Jun-2016; Series7: 21-Jul-2017 PCV --- Series1: 18-Sep-2016 Vital Signs Height: 5 ft 1.5 in Weight: 214 lb 2 oz BMI Calculated: 39.8 BSA Calculated: 1.96 Respiration: 22 Blood Pressure: 126 / 82, LUE, Sitting O2 Saturation: 97, RA Heart Rate: 88 Temperature: 99 F Physical Exam General appearance: No acute distress, well appearing and well nourished. Eyes Conjunctiva and lids: No swelling, erythema or discharge. Pupils and irises: Equal, round and reactive to light. Ears, Nose, Mouth, and Throat External inspection of ears and nose: Abnormal. Some inspiratory stridor noted. Otoscopic examination: Tympanic membranes translucent with normal light reflex. Canals patent without erythema. Oropharynx: Normal with no erythema, edema, exudate or lesions. Pulmonary Respiratory effort: No increased work of breathing or signs of respiratory distress. Auscultation of lungs: Clear to auscultation. Cardiovascular Palpation of heart: Normal PMI, no thrills. Auscultation of heart: Normal rate and rhythm, normal S1 and S2, without murmurs. Examination of extremities for edema and/or varicosities: Abnormal. 1+ pitting edema. Abdomen Abdomen: Non-tender, no masses. Liver and spleen: No hepatomegaly or splenomegaly. Lymphatic Palpation of lymph nodes in neck: No lymphadenopathy. Musculoskeletal Gait and station: Normal. Digits and nails: Normal without clubbing or cyanosis. Inspection/palpation of joints, bones, and muscles: Normal. Skin Skin and subcutaneous tissue: Normal without rashes or lesions. Neurologic Cranial nerves: Cranial nerves 2-12 intact. Reflexes: 2+ and symmetric. Sensation: No sensory loss. Psychiatric Orientation to person, place, and time: Normal. Mood and affect: Normal.
[2018-02-05 07:41] VITALS: BP 171/66; PULSE 58; TEMP 37; O2SAT 96; Ht 154.9 cm; Wt 101.0 kg
[2018-02-05 08:05] LABS: INR 1.1 (0.9-1.1); PTT PATIENT 24.6 SECONDS (21.0-31.0)
--- NOTE | 2018-02-05 12:19 | Bronchoscopy Procedure Note ---
Bronchoscopy Procedure Note Procedure: Flexible bronchoscopy, rigid bronchoscopy, Xomed microdebrider Consent: Obtained through the patient placed into the chart Pre-procedural diagnosis: Tracheal stenosis Post-procedural diagnosis: Tracheal stenosis Procedure: The Olympus video bronchoscope was used for this procedure and passed down through the right naris Right naris/posterior naris/posterior oropharynx: Anatomically within normal limits Glottis: Anatomically within normal limits Vocal cords: Anatomically within normal limits Subglottis: Anatomically within normal limits Trachea: Approximately 2 cm below the level of the vocal cords the trachea stenosed down to 4 mm Trachea/Fidelia: The area below the tracheal stenosis was anatomically within normal limits Right bronchial tree: Right mainstem bronchus: Anatomically within normal limits Right upper lobe: Anatomically within normal limits Bronchus intermedius: Anatomically within normal limits Right middle lobe: Anatomically within normal limits Right lower lobe: Anatomically within normal limits Findings: No significant findings noted Left bronchial tree: Left mainstem bronchus: Anatomically within normal limits Left upper lobe: Anatomically within normal limits Lingula: Anatomically within normal limits Left lower lobe: Anatomically within normal limits Findings: No significant findings noted Following the flexible procedure the Dumon rigid bronchoscope was used Initially the size 10 tracheoscope was used for entry and dilation followed by the size 12 and ultimately the size 13.2 was used for access to the distal portion of the trachea and dilation of the area of stenosis. With the 13.2 Dumon trachea-scope in place the Xomed microdebrider was used to remove excess scar tissue. The trachea scope was then pulled back in the subglottic region and there was notable enlargement up to 13 mm of the previously stenotic region. EBL: 5 cc Complications: None Follow-up: ASU
--- NOTE | 2018-02-05 13:01 | Discharge Instructions ---
Discharge Instructions Date of Service Feb 05, 2018. Admission Reason for Admission: Subglottic Stenosis Discharge Discharge Diagnosis / Problem: Tracehal Stenosis Discharge Goals Goal(s): Improve function Activity Recommendations Activity Limitations: resume your previous activity Exercise/Sports Limitations: as tolerated Shower/Bathe: tomorrow . Instructions / Follow-Up Instructions / Follow-Up Please follow-up with Dr. Gregory Flores at your post-bronchoscopy scheduled visit Current Hospital Diet Patient's current hospital diet: Discharge Diet Recommended Diet: Regular Diet Procedures Procedures Performed: Rigid Bronchoscopy, Flexible Bronchoscopy, Xomed Microdebridement Pending Studies Studies pending at discharge: no Laboratory Results Hemoglobin A1c Test 12/25/17 08:14 Range/Units Estimated Average Glucose 229 mg/dl Hemoglobin A1c 9.6 H 4.5-5.6 % Medical Emergencies . Who to Call and When: Medical Emergencies: If at any time you feel your situation is an emergency, please call 911 immediately. . Non-Emergent Contact Non-Emergency issues call your: Welfare Centre Manager Call Non-Emergent contact if: you have a fever, temperature is above 101.5 . . "Provider Documentation" section prepared by Gregory Flores. .
[2018-02-05 13:55] VITALS: BP 172/72; PULSE 61; TEMP 36.4; O2SAT 93
--- NOTE | 2018-02-05 14:07 | Anesthesiology Progress Note ---
Anesthesia Post Op Note Date & Time Feb 05, 2018 at 14:07 Vital Signs Pain Intensity: 0 Vital Signs Past 12 Hours Date Time Temp Pulse Resp B/P (MAP) Pulse Ox O2 Delivery O2 Flow Rate FiO2 02/05/18 13:45 64 16 149/58 93 Room Air 02/05/18 13:30 60 16 136/58 94 Room Air 02/05/18 13:15 36.3 59 16 152/64 94 Room Air 02/05/18 13:00 58 16 146/60 95 Room Air 02/05/18 12:50 65 16 158/61 99 Oxymask 3 02/05/18 12:40 60 18 149/65 100 Oxymask 5 02/05/18 12:30 63 18 161/58 99 Oxymask 5 02/05/18 12:22 36.1 66 18 158/71 99 Oxymask 10 02/05/18 07:41 37 58 22 171/66 (101) 96 Room Air Notes Mental Status: alert / awake / arousable, participated in evaluation Pt Amnestic to Procedure: Yes Nausea / Vomiting: adequately controlled Pain: adequately controlled Airway Patency, RR, SpO2: stable & adequate BP & HR: stable & adequate Hydration State: stable & adequate Anesthetic Complications: no major complications apparent
[2018-02-05 14:25] VITALS: BP 161/70; PULSE 61; TEMP 36.7; O2SAT 94
--- NOTE | 2018-02-05 16:05 | SURGICAL CONSULTATION ---
DATE OF CONSULTATION: 02/05/2018 INTRAOPERATIVE CONSULTATION REASON FOR CONSULTATION: Standby for airway issues. HISTORY OF PRESENT ILLNESS: This is a very nice 72-year-old obese female who was worked up thoroughly by Dr. Gregory Flores and was found to have a probably benign stenosis of the subglottic trachea. I had a long talk with the patient and her family before the surgery. During the case Dr. Flores performed first a flexible and then a rigid bronchoscopy, it could be seen there was subglottic stenosis. Dr. Flores then put a rigid scope through and dilated this up. For specifics of this please refer to his operative note. He then used the Xomed to debride this stenotic area. This looked very good at the end of the case. It should be noted that I met with anesthesia preoperatively as well as convening with Dr. Flores to proceed according to his plan. We were on standby with a trach tray ready in case we had issues with the airway. Dr. Youssef managed this case without difficulty. The patient tolerated this procedure quite well. LAI
== END | disposition home or self-care (01) ==
LOC: C.ACU 06:55
PROVIDERS: ATTEND Internal Medicine Critical Care Medicine
DX: J39.8 Other specified diseases of upper respiratory tract (principal); I48.0 Paroxysmal atrial fibrillation; E66.01 Morbid (severe) obesity due to excess calories; Z68.41 Body mass index [BMI] 40.0-44.9, adult; I12.9 Hypertensive chronic kidney disease with stage 1 through stage 4 chronic kidney disease, or unspecified chronic kidney disease; Z88.1 Allergy status to other antibiotic agents; E11.9 Type 2 diabetes mellitus without complications; I25.10 Atherosclerotic heart disease of native coronary artery without angina pectoris; F32.9 Major depressive disorder, single episode, unspecified; J45.909 Unspecified asthma, uncomplicated; E78.5 Hyperlipidemia, unspecified; N18.4 Chronic kidney disease, stage 4 (severe); Z79.899 Other long term (current) drug therapy; Z79.01 Long term (current) use of anticoagulants; Z90.89 Acquired absence of other organs; Z90.710 Acquired absence of both cervix and uterus; Z80.49 Family history of malignant neoplasm of other genital organs; Z80.41 Family history of malignant neoplasm of ovary; Z80.0 Family history of malignant neoplasm of digestive organs

== ENCOUNTER 2018-02-07 10:33 | Inpatient (IN) | payer BC, OTHER ==
[~2018-02-07] VITALS: Ht 154.9 cm; Wt 95.5 kg
[~2018-02-07 10:33] MED LIST changes: -ATROPINE SULFATE 0.1 MG/ML 5ML SYR IV PRN; -EpHEDrine SULFATE INJ 50 MG/ML AMP IV PRN; -FENTANYL CITRATE INJ 50 MCG/1 ML 2 ML VIAL IV PRN; -FENTANYL CITRATE INJ 50 MCG/1 ML 2 ML VIAL ONE; -GLYCOPYRROLATE INJ 0.2 MG/ML VIAL ONE; -KETAMINE HCL INJ 50 MG/ML 10 ML VIAL ONE; -LIDOCAINE HCL 2% 2 ML VIAL (20MG/ML) ONE; -MIDAZOLAM HCL 1 MG/ML 2ML VIAL ONE; -ONDANSETRON INJ 2 MG/ML 2 ML VIAL IV PRN; -PROPOFOL IV EMULSION 10 MG/ML 100 ML VIAL IV ONE; -PROPOFOL IV EMULSION 10 MG/ML 20 ML VIAL IV ONE; -REMIFENTANIL 1 MG VIAL ONE; -ROCURONIUM BROMIDE 10 MG/ML 5 ML VIAL IV ONE; -SODIUM CHLORIDE 0.9% 1000ML 1,000 ML IV SCH
[2018-02-07] MEDS ORDERED: ALBUT/IPRATROP 3MG/0.5MG NEB 3 ML VIAL INH STA (11:02)
[2018-02-07] MEDS ORDERED: DEXAMETHASONE **PF** INJ 10 MG/ML VIAL IV ONE (11:15)
[2018-02-07 11:17] LABS: BASO % 0.2 %; BASO ABS # 0.02 K/uL (0-0.2); EOS % 0.5 %; EOS ABS # 0.06 K/uL (0-0.5); HEMATOCRIT 40.8 % (37-47); HEMOGLOBIN 13.6 g/dL (12.0-16.0); IG# 0.08 K/uL (0.00-0.02); LYMPH % 9.5 %; LYMPH ABS # 1.24 K/uL (1.2-3.4); MEAN CELL VOLUME 92.1 fL (80-100); MEAN CORPUSCULAR HEMOGLOBIN 30.7 pg (25-34); MEAN CORPUSCULAR HGB CONC 33.3 g/dl (32-36); MEAN PLATELET VOLUME 10.2 fL (7.4-10.4); MONO % 9.4 %; MONO ABS # 1.22 K/uL (0.11-0.59); NEUT % 79.8 %; PLATELET COUNT 217 K/uL (130-400); RED CELL DISTRIBUTION WIDTH CV 14.5 % (11.5-14.5); RED CELL DISTRIBUTION WIDTH SD 48.7 fL (36.4-46.3); WHITE BLOOD COUNT 13.02 K/uL (4.8-10.8)
[2018-02-07 11:26] LABS: INR 1.1 (0.9-1.1); PTT PATIENT 25.7 SECONDS (21.0-31.0)
--- NOTE | 2018-02-07 11:39 | DIAGNOSTIC IMAGING REPORT ---
CHEST ONE VIEW PORTABLE CLINICAL HISTORY: EVALUATE RESPIRATORY DISTRESS.DYSPNEA dyspnea COMPARISON STUDY: 07/21/2017 FINDINGS: Mild cardiomegaly. Lungs are clear. Diaphragms are smooth. IMPRESSION: No acute process. The above report was generated using voice recognition software. It may contain grammatical, syntax or spelling errors. Electronically signed by: Clive Martinez M.D. 02/07/2018 11:38 AM Dictated Date/Time: 02/07/2018 11:37 AM
[2018-02-07 11:55] LABS: ALBUMIN 3.7 gm/dl (3.4-5.0); CALCIUM 9.8 mg/dl (8.5-10.1); CREATININE 2.17 mg/dl (0.60-1.20); POTASSIUM 3.5 mmol/L (3.5-5.1)
[2018-02-07 12:04] LABS: INFLUENZA B ANTIGEN Neg for Influ B (NEG)
[2018-02-07] MEDS ORDERED: ALBUTEROL HFA 8 GM INHALER INH PRN (14:45)
[2018-02-07] MEDS ORDERED: NITROGLYCERIN 0.4 MG SL PER TAB CHARGE UT PRN (14:45)
[2018-02-07] MEDS ORDERED: WARFARIN SOD 5 MG TAB PO SCH ×2 (14:45)
--- NOTE | 2018-02-07 14:45 | EMERGENCY ROOM VISIT NOTE ---
History Report prepared by Xenia: Gregory Jeronimo Under the Supervision of: Dr. Oliver Gorman M.D. First contact with patient: 10:44 Stated Complaint: BREATHING DIFFICULTY History of Present Illness The patient is a 72 year old female who presents to the Emergency Room with complaints of worsening dyspnea that began 2 days ago after having a bronchoscopy performed by Dr. Flores. She said that Dr. Flores had to dilate her trachea because it was closed up "like a straw" due to scar tissue. Patient is present with family members. They state that the patient's trachea went from "4mm to13mm". Patient states that she has been more dyspneic and "coughing up blood clots" since the procedure. She states that she has chest tightness. She adds that Dr. Flores put her on a course of steroids for the symptoms. Patient adds that she is taking prednisone. Patient states that she uses a nebulizer 4 times a day. She states that the nebulizer only temporally relieves her symptoms. Family member states that the patient tried to use her nebulizer 3 hours ago without any symptom relief. Family members add that the patient has not taken her insulin today. Patient's family doctor is Alfred JI. Patient states that she takes Warfarin. Pt denies LOC, headache, fevers, chills, diaphoresis, visual changes, neck pain, chest pain, nausea, vomiting, abdominal pain, back pain, melena, hematochezia, urinary symptoms, numbness, weakness, lymphadenopathy, rash, or other complaints. Source of History: patient Onset: 2 days ago Position: throat Timing: worsening Modifying Factors (Relieving): other (Nebulizer) Note: Patient has chest tightness. Review of Systems See HPI for pertinent positives and negatives. A total of ten systems were reviewed and were otherwise negative. Past Medical & Surgical Medical Problems: (1) Afib (2) Chronic renal insufficiency (3) detention (current) use of anticoagulants Family History Omitted secondary to age. Social History Smoking Status: Never Smoker Marital Status: single Occupation Status: disabled Current/Historical Medications Scheduled Allopurinol (Zyloprim), 100 MG PO QAM Azelastine Hcl (Astepro), 2 SPRY BRIAN BID Budesonide (Inhalation) (Pulmicort Flexhaler), 2 PUFFS INH BID Bumetanide (Bumex), 2 MG PO BID Calcitriol (Rocaltrol Cap), 0.25 MCG PO DAILY Choline Fenofibrate (Trilipix), 135 MG PO QAM Clonazepam (Klonopin), 0.5 MG PO HS Docusate Sodium (Docusate Sodium), 100 MG PO QID Duloxetine Hcl (Cymbalta), 30 MG PO QAM Ergocalciferol (Vitamin D 59665 Unit), 1 TAB PO MONTHLY Ezetimibe/Simvastatin (Vytorin 10MG/40MG), 1 TAB PO HS Fexofenadine Hcl (Marie Allergy), 180 MG PO QAM Insulin Aspart (Novolog), 5 UNITS SC AC Insulin Glargine (Basaglar Kwikpen), 50 SC BID Ipratropium-Albuterol (Duoneb), 1 TREATMENT INH QID Isosorbide Mononitrate Ext Rel (Imdur Ext Rel), 90 MG PO QAM Levothyroxine Sodium (Levothyroxine Sodium), 50 MCG PO QAM Metoclopramide (Reglan), 10 MG PO QPM Metoprolol Succinate (Toprol Xl), 12.5 MG PO QAM Montelukast Sodium (Montelukast Sodium), 10 MG PO HS Pantoprazole (Protonix), 40 MG PO QAM Pseudoephedrine Hcl (12 Hour Decongestant), 1 TAB PO BID Pseudoephedrine-Guaifenesin (Mucinex D), 1 TAB PO QM Sitagliptin Phosphate (Januvia), 100 MG PO QAM Spironolactone (Aldactone), 50 MG PO BID Tiotropium [place] (Spiriva Handihaler), 1 CAP INH QAM Warfarin Sod (Jantoven), 5 MG PO 3XWK Warfarin Sodium (Coumadin), 2.5 MG PO 4XWK Scheduled PRN Albuterol Sulfate (Proair Respiclick), 2 PUFFS INH Q4H PRN for SOB/Wheezing Nitroglycerin (Nitrostat), 0.4 MG UT UD PRN for Chest Pain Allergies Coded Allergies: Clarithromycin (Verified Allergy, Intermediate, RASH AND ITCHING, 02/05/18) Physical Exam Vital Signs Date Time Temp Pulse Resp B/P (MAP) Pulse Ox O2 Delivery O2 Flow Rate FiO2 02/07/18 13:24 97 20 177/87 98 Nasal Cannula 2.0 02/07/18 12:23 91 20 172/86 98 Nasal Cannula 2.0 02/07/18 11:08 97 Nasal Cannula 2.0 02/07/18 11:08 37.6 101 28 166/85 90 Room Air 02/07/18 11:08 90 Room Air 02/07/18 11:08 90 Room Air 02/07/18 10:49 93 Physical Exam GENERAL: Awake, alert, dyspneic-appearing, in no distress HENT: Normocephalic, atraumatic. Posterior erythema oropharynx. EYES: Normal conjunctiva. Sclera non-icteric. NECK: Supple. No nuchal rigidity. FROM. No masses. RESPIRATORY: Course upper airway sounds. No wheezes. No rales. Normal respiratory effort. CARDIAC: Normal rate. Normal rhythm. No murmurs. No rubs. Extremities warm and well perfused. Pulses equal. No JVD. GI: Soft, non-distended. No tenderness to palpation. No rebound or guarding. No masses. RECTAL: Deferred. MUSCULOSKELETAL: Atraumatic. Chest examination reveals no tenderness. The back is symmetrical on inspection without obvious abnormality. There is no CVA tenderness to palpation. No joint edema. LOWER EXTREMITIES: Calves are equal size bilaterally and non-tender. 1+ edema. No discoloration. NEURO: Normal sensorium. No sensory or motor deficits noted. SKIN: No rash or jaundice noted. Medical Decision & Procedures ER Provider Diagnostic Interpretation: Radiology results as stated below per my review and radiologist interpretation: CHEST ONE VIEW PORTABLE CLINICAL HISTORY: EVALUATE RESPIRATORY DISTRESS.DYSPNEA dyspnea COMPARISON STUDY: 07/21/2017 FINDINGS: Mild cardiomegaly. Lungs are clear. Diaphragms are smooth. IMPRESSION: No acute process. The above report was generated using voice recognition software. It may contain grammatical, syntax or spelling errors. Electronically signed by: Clive Martinez M.D. 02/07/2018 11:38 AM Laboratory Results 02/07/18 10:46 Red Blood Count 4.43, Mean Corpuscular Volume 92.1, Mean Corpuscular Hemoglobin 30.7, Mean Corpuscular Hemoglobin Concent 33.3, Mean Platelet Volume 10.2, Neutrophils (%) (Auto) 79.8, Lymphocytes (%) (Auto) 9.5, Monocytes (%) (Auto) 9.4, Eosinophils (%) (Auto) 0.5, Basophils (%) (Auto) 0.2, Neutrophils # (Auto) 10.40, Lymphocytes # (Auto) 1.24, Monocytes # (Auto) 1.22, Eosinophils # (Auto) 0.06, Basophils # (Auto) 0.02 02/07/18 10:46 Test 02/07/18 10:46 02/07/18 11:00 White Blood Count 13.02 K/uL (4.8-10.8) Red Blood Count 4.43 M/uL (4.2-5.4) Hemoglobin 13.6 g/dL (12.0-16.0) Hematocrit 40.8 % (37-47) Mean Corpuscular Volume 92.1 fL (80-100) Mean Corpuscular Hemoglobin 30.7 pg (25-34) Mean Corpuscular Hemoglobin Concent 33.3 g/dl (32-36) Platelet Count 217 K/uL (130-400) Mean Platelet Volume 10.2 fL (7.4-10.4) Neutrophils (%) (Auto) 79.8 % Lymphocytes (%) (Auto) 9.5 % Monocytes (%) (Auto) 9.4 % Eosinophils (%) (Auto) 0.5 % Basophils (%) (Auto) 0.2 % Neutrophils # (Auto) 10.40 K/uL (1.4-6.5) Lymphocytes # (Auto) 1.24 K/uL (1.2-3.4) Monocytes # (Auto) 1.22 K/uL (0.11-0.59) Eosinophils # (Auto) 0.06 K/uL (0-0.5) Basophils # (Auto) 0.02 K/uL (0-0.2) RDW Standard Deviation 48.7 fL (36.4-46.3) RDW Coefficient of Variation 14.5 % (11.5-14.5) Immature Granulocyte % (Auto) 0.6 % Immature Granulocyte # (Auto) 0.08 K/uL (0.00-0.02) Prothrombin Time 11.8 SECONDS (9.0-12.0) Prothromb Time International Ratio 1.1 (0.9-1.1) Activated Partial Thromboplast Time 25.7 SECONDS (21.0-31.0) Partial Thromboplastin Ratio 1.0 Anion Gap 5.0 mmol/L (3-11) Est Creatinine Clear Calc Drug Dose 24.5 ml/min Estimated GFR () 25.2 Estimated GFR (Non- 21.7 BUN/Creatinine Ratio 26.8 (10-20) Calcium Level 9.8 mg/dl (8.5-10.1) Total Bilirubin 0.4 mg/dl (0.2-1) Aspartate Amino Transf (AST/SGOT) 21 U/L (15-37) Alanine Aminotransferase (ALT/SGPT) 26 U/L (12-78) Alkaline Phosphatase 32 U/L (45-117) Troponin I 0.189 ng/ml (0-0.045) Total Protein 8.0 gm/dl (6.4-8.2) Albumin 3.7 gm/dl (3.4-5.0) Globulin 4.3 gm/dl (2.5-4.0) Albumin/Globulin Ratio 0.9 (0.9-2) Influenza Type A Antigen Neg for Influ A (NEG) Influenza Type B Antigen Neg for Influ B (NEG) Laboratory results reviewed by me Medications Administered Medications (Trade) Dose Ordered Sig/Benito Route Start Time Stop Time Status Last Admin Dose Admin Albuterol/ Ipratropium (Duoneb) 3 ml NOW STAT INH 02/07/18 11:02 02/07/18 11:03 DC 02/07/18 11:22 3 ML Dexamethasone Sodium Phosphate (Dexamethasone Inj Pf) 10 mg NOW ONCE IV 02/07/18 11:15 02/07/18 11:16 DC 02/07/18 11:22 10 MG ECG Per My Interpretation Indication: SOB/dyspnea Rate (beats per minute): 93 Rhythm: sinus rhythm Findings: 1st degree AV block, left axis deviation, other (LVH with repolarization) Comparison ECG Date: 01/29/2018 Change: Septal Q waves in new compared to old. ED Course 1049: The patient was evaluated in room B5. A complete history and physical exam was performed. 1102: Duoneb 3ml INH 1115: Dexamethasone Sodium Phosphate 10mg IV 1224: Upon reexamination, the patient will be further evaluated. I discussed the test results and treatment plan with Dr. Whitman. The patient will be evaluated for further management. Medical Decision Prior records/ancillary studies reviewed. Triage Nursing notes reviewed and agree them. Additional history obtained from the family. The patient's history was concerning for shortness of breath. Differential diagnosis: Etiologies such as pneumonia, COPD, reactive airway disease, CHF, cardiac ischemia, pulmonary embolism, pneumothorax, musculoskeletal, infections, gastrointestinal, as well as others were entertained. Physical examination: As above ER treatment provided: Decadron DuoNeb On reassessment the patient felt better. Diagnostic interpretation by me: The electrocardiogram was negative for pathologic change. The labs revealed a mild leukocytosis on CBC. Chemistry panel was unremarkable except for baseline renal insufficiency. The patient's troponin is mildly elevated. Imaging studies: Chest x-ray as above. Consultation: A consultation was placed with the mixer attendant, hospitalist, and grill prep cook. The case was discussed and diagnostics were reviewed. The patient was evaluated in the ER for further treatment. Medication Reconcilliation Current Medication List: was personally reviewed by me Blood Pressure Screening Patient's blood pressure: Elevated blood pressure Referred to hospitalist. Consults Time Called: 1214 Consulting Physician: Dr. Ruano - freight caller for Pulmonary Returned Call: 1216 Discussed the patient's case. Dr. Ruano recommends giving the patient a nebulizer and steroids. He states that he with consult the patient. The patient will be evaluated for further treatment and disposition. Additional Consults: Time Called: 1230 Consulted Physician: Dr. Hinton Additional Comments: He will see the patient for admission. He did speak to Dr. ruano. He asked that I notify Dr. Anderson in the ICU. This was done. Impression Primary Impression: Dyspnea Additional Impressions: Elevated troponin Renal insufficiency Scribe Attestation The scribe's documentation has been prepared under my direction and personally reviewed by me in its entirety. I confirm that the note above accurately reflects all work, treatment, procedures, and medical decision making performed by me. Departure Information Dispostion Being Evaluated By Hospitalist Referrals Alfred Mckeon III, CRNP (PCP) Forms HOME CARE DOCUMENTATION FORM, IMPORTANT VISIT INFORMATION Patient Instructions Asthma - [facility], COPD - [facility], Croup - [facility], [facility] Problem Qualifiers
[2018-02-07] MEDS ORDERED: DEXTROSE 50% 50 ML SYR IV PRN (15:00)
[2018-02-07] MEDS ORDERED: GLUCAGON FOR INJ 1 MG VIAL SQ PRN (15:00)
[2018-02-07] MEDS ORDERED: ICU PROTOCOL FOR HYPERGLYCEMIA PRN (15:00)
[2018-02-07] MEDS ORDERED: DiphenhydrAMINE INJ 12.5 MG in SYRINGE 0 ML IV SCH (15:00)
[2018-02-07] MEDS ORDERED: GLUCOSE 40% GEL 15 GM TUBE PO PRN (15:00)
[2018-02-07] MEDS ORDERED: GLUCOSE 10 TABS/TUBE PO PRN (15:00)
[2018-02-07] MEDS ORDERED: PIPERACILL/TAZOBAC CONSULT ACTIVE PRN (15:15)
--- NOTE | 2018-02-07 15:20 | History and Physical ---
History & Physical Date & Time of Service: Feb 07, 2018 at 15:01 Chief Complaint: Breathing Difficulty Primary Care Physician: Alfred Mckeon III, CRNP History of Present Illness Source: patient, family 72-year-old female with past medical history of obstructive sleep apnea, asthma/ COPD, chronic kidney disease stage IV, hypertension, hypothyroidism, diabetes mellitus type 2 insulin requiring, dyslipidemia, chronic diastolic congestive heart failure, morbid obesity, epiglottic and subepiglottic tracheal stenosis, 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 Status post flexible followed by rigid bronchoscopy with Xomed to debride this stenotic area done by Dr. Flores 3 days ago, patient tolerated the procedure well had no complaint. Yesterday patient developed worsening shortness of breath. Patient said that she had prior to the procedure she had productive cough with yellowish sputum her sister confirmed that. The patient continues to have productive cough with yellowish sputum. Denies any fever or chills. She was presented to the ED found to have negative chest x-ray. There was no significant wheezing. There was minimal stridor. Patient received Decadron and DuoNeb inhaler and felt better. Patient was examined by Dr. Ruano who recommended admission to ICU for monitoring. Dr. Anderson will be consulted. At the time of the surgical bronchoscopy Dr. Buenrostro was on standby. Can be consulted if her situation worsens. Denies any fever or chills, denies any chest pain or palpitation Past Medical/Surgical History Medical Problems: (1) Afib (2) Chronic renal insufficiency (3) roasterman (current) use of anticoagulants (4) SOB (shortness of breath) Social History Smoking Status: Never Smoker Marital Status: single Occupational Status: disabled Immunizations History of Influenza Vaccine: No History of Tetanus Vaccine?: No History of Pneumococcal: No History of Hepatitis B Vaccine: No Allergies Coded Allergies: Clarithromycin (Verified Allergy, Intermediate, RASH AND ITCHING, 02/05/18) Home Medications Scheduled Allopurinol (Zyloprim), 100 MG PO QAM Azelastine Hcl (Astepro), 2 SPRY BRIAN BID Budesonide (Inhalation) (Pulmicort Flexhaler), 2 PUFFS INH BID Bumetanide (Bumex), 2 MG PO BID Calcitriol (Rocaltrol Cap), 0.25 MCG PO DAILY Choline Fenofibrate (Trilipix), 135 MG PO QAM Clonazepam (Klonopin), 0.5 MG PO HS Docusate Sodium (Docusate Sodium), 100 MG PO QID Duloxetine Hcl (Cymbalta), 30 MG PO QAM Ergocalciferol (Vitamin D 55488 Unit), 1 TAB PO MONTHLY Ezetimibe/Simvastatin (Vytorin 10MG/40MG), 1 TAB PO HS Fexofenadine Hcl (Marie Allergy), 180 MG PO QAM Insulin Aspart (Novolog), 5 UNITS SC AC Insulin Glargine (Basaglar Kwikpen), 50 SC BID Ipratropium-Albuterol (Duoneb), 1 TREATMENT INH QID Isosorbide Mononitrate Ext Rel (Imdur Ext Rel), 90 MG PO QAM Levothyroxine Sodium (Levothyroxine Sodium), 50 MCG PO QAM Metoclopramide (Reglan), 10 MG PO QPM Metoprolol Succinate (Toprol Xl), 12.5 MG PO QAM Montelukast Sodium (Montelukast Sodium), 10 MG PO HS Pantoprazole (Protonix), 40 MG PO QAM Pseudoephedrine Hcl (12 Hour Decongestant), 1 TAB PO BID Pseudoephedrine-Guaifenesin (Mucinex D), 1 TAB PO QM Sitagliptin Phosphate (Januvia), 100 MG PO QAM Spironolactone (Aldactone), 50 MG PO BID Tiotropium [place] (Spiriva Handihaler), 1 CAP INH QAM Warfarin Sod (Jantoven), 5 MG PO 3XWK Warfarin Sodium (Coumadin), 2.5 MG PO 4XWK Scheduled PRN Albuterol Sulfate (Proair Respiclick), 2 PUFFS INH Q4H PRN for SOB/Wheezing Nitroglycerin (Nitrostat), 0.4 MG UT UD PRN for Chest Pain Review of Systems Review of system Constitutional: No fever / no chills / no sweats / no weakness / no fatigue Eyes: no blurring of vision / no eye pain / no discharge / no redness ENT: no hearing loss / no epistaxis /no swallowing problems Respiratory: Significant shortness of breath and minimal wheezing / productive cough w yellowish sputum Cardiovascular: no Chest pain / no lower extremity edema / no palpitation Abdomen: no pain / no nausea / no vomiting / no constipation Musculoskeletal: no joint pain / no muscle pain / no joint swelling Genitourinary: no dysuria / no incontinence / no urinary retention Neurologic: no focal weakness / no numbness/tingling / no ataxia Psychiatric: no depression symptoms / no anxiety / no insomnia Endocrine: no excessive thirst / no excessive urination Hematologic: no abnormal bleeding / no bruising / no LN swelling Skin: No rash / no pallor Physical Exam Vital Signs Date Time Temp Pulse Resp B/P (MAP) Pulse Ox O2 Delivery O2 Flow Rate FiO2 02/07/18 13:24 97 20 177/87 98 Nasal Cannula 2.0 02/07/18 12:23 91 20 172/86 98 Nasal Cannula 2.0 02/07/18 11:08 97 Nasal Cannula 2.0 02/07/18 11:08 37.6 101 28 166/85 90 Room Air 02/07/18 11:08 90 Room Air 02/07/18 11:08 90 Room Air 02/07/18 10:49 93 Physical examination General patient appears to be in moderate discomfort morbidly obese, HEENT: Atraumatic , normocephalic /no jaundice /no pallor /anicteric /no dry mucous membrane /normal external ear inspection Neck: Supple /no swelling /central trach Heart: S1/S2 normal/regular rate and rhythm/no gallop /no rub /no murmur Lungs: Clear to auscultation bilaterally/normal chest with expansion/no rhonchi/ no rales/minimal wheezing/no use of accessory muscles of respiration, had minimal stridor heard over her neck Abdomen: Soft/nontender/no guarding/no rebound/no organomegaly/no pulsatile mass Musculoskeletal: No swelling/no edema/no tenderness/normal range of motion Neuro exam: Awake alert oriented 3/cranial nerves II through XII appear to be intact/sensation intact/moves all extremities/no abnormal movements Psychiatric evaluation: No depressed mood/normal affect Skin: No rash on exposed skin area/no erythema Extremity: Normal pulse/no pitting edema/no clubbing or cyanosis Endocrine/lymphatic: No obvious lymphadenopathy /no lymphedema Diagnostics Laboratory Results Results Past 24 Hours Test 02/07/18 10:46 02/07/18 11:00 Range/Units White Blood Count 13.02 4.8-10.8 K/uL Red Blood Count 4.43 4.2-5.4 M/uL Hemoglobin 13.6 12.0-16.0 g/dL Hematocrit 40.8 37-47 % Mean Corpuscular Volume 92.1 80-100 fL Mean Corpuscular Hemoglobin 30.7 25-34 pg Mean Corpuscular Hemoglobin Concent 33.3 32-36 g/dl Platelet Count 217 130-400 K/uL Mean Platelet Volume 10.2 7.4-10.4 fL Neutrophils (%) (Auto) 79.8 % Lymphocytes (%) (Auto) 9.5 % Monocytes (%) (Auto) 9.4 % Eosinophils (%) (Auto) 0.5 % Basophils (%) (Auto) 0.2 % Neutrophils # (Auto) 10.40 1.4-6.5 K/uL Lymphocytes # (Auto) 1.24 1.2-3.4 K/uL Monocytes # (Auto) 1.22 0.11-0.59 K/uL Eosinophils # (Auto) 0.06 0-0.5 K/uL Basophils # (Auto) 0.02 0-0.2 K/uL RDW Standard Deviation 48.7 36.4-46.3 fL RDW Coefficient of Variation 14.5 11.5-14.5 % Immature Granulocyte % (Auto) 0.6 % Immature Granulocyte # (Auto) 0.08 0.00-0.02 K/uL Prothrombin Time 11.8 9.0-12.0 SECONDS Prothromb Time International Ratio 1.1 0.9-1.1 Activated Partial Thromboplast Time 25.7 21.0-31.0 SECONDS Partial Thromboplastin Ratio 1.0 Sodium Level 141 136-145 mmol/L Potassium Level 3.5 3.5-5.1 mmol/L Chloride Level 104 98-107 mmol/L Carbon Dioxide Level 32 21-32 mmol/L Anion Gap 5.0 3-11 mmol/L Blood Urea Nitrogen 58 7-18 mg/dl Creatinine 2.17 0.60-1.20 mg/dl Est Creatinine Clear Calc Drug Dose 24.5 ml/min Estimated GFR () 25.2 Estimated GFR (Non- 21.7 BUN/Creatinine Ratio 26.8 10-20 Random Glucose 277 70-99 mg/dl Calcium Level 9.8 8.5-10.1 mg/dl Total Bilirubin 0.4 0.2-1 mg/dl Aspartate Amino Transf (AST/SGOT) 21 15-37 U/L Alanine Aminotransferase (ALT/SGPT) 26 12-78 U/L Alkaline Phosphatase 32 45-117 U/L Troponin I 0.189 0-0.045 ng/ml Total Protein 8.0 6.4-8.2 gm/dl Albumin 3.7 3.4-5.0 gm/dl Globulin 4.3 2.5-4.0 gm/dl Albumin/Globulin Ratio 0.9 0.9-2 Influenza Type A Antigen Neg for Influ A NEG Influenza Type B Antigen Neg for Influ B NEG Impression Assessment and Plan 72-year-old female with past medical history of obstructive sleep apnea, asthma/ COPD, Atrial fibrillation on Coumadin, chronic kidney disease stage IV, hypertension, hypothyroidism, diabetes mellitus type 2 insulin requiring, dyslipidemia, chronic diastolic congestive heart failure, morbid obesity, epiglottic and subepiglottic tracheal stenosis, 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 Status post flexible followed by rigid bronchoscopy with Xomed to debride this stenotic area done by Dr. Flores 3 days ago, patient tolerated the procedure well had no complaint. Presented with acute shortness of breath. Assessment Acute shortness of breath, possibly laryngeal edema Acute bacterial bronchitis Possible aspiration COPD with mild exacerbation Chronic kidney disease stage IV Atrial fibrillation on Coumadin hypertension Hypothyroidism Diabetes mellitus type 2 Diastolic congestive heart failure without exacerbation Dyslipidemia Morbid obesity Plan Admit to ICU Bronchodilators, DuoNeb nebulizer, will hold on racemic epinephrine for now since her stridor is minimal Decadron 4 mg IV every [address] scan without contrast for the neck and chest, evaluate soft tissue and rule out subcutaneous or mediastinal emphysema Doxycycline/Zosyn to cover bronchitis or early aspiration pneumonia Probiotic Continue Synthroid Continue insulin, add sliding scale Continue blood pressure medications Hold Coumadin for possible intervention, started on heparin drip. Resuscitation Status VTE Prophylaxis Will order VTE Prophylaxis: Yes
--- NOTE | 2018-02-07 15:46 | PULMONARY CONSULTATION ---
DATE OF CONSULTATION: 02/07/2018 TIME: 2:40 p.m. REPORT OF CONSULTATION: The patient is a 72-year-old female who is being seen with a chief complaint of shortness of breath. She carries a history of asthma for about 20 years. However, pulmonary function testing done within the past year on 2 separate occasions showed normal spirometry, but with very abnormal flow volume loops. The flow volume curves show flattening on both inspiration and expiration raising the possibility of a fixed extrathoracic obstruction. A CAT scan of the neck was done which demonstrated marked narrowing of the subglottic region. She also had hoarseness. She was evaluated by Dr. Taylor of the ENT department and he did not find any specific abnormality except to suggest a subglottic problem. Dr. Flores saw the patient and did bronchoscopy and visualized the area. On 02/05/2018, Dr. Flores performed a flexible bronchoscopy, rigid bronchoscopy, and a Xomed microdebridement. The patient tolerated the procedure well. Dr. Flores indicated that he was able to open the airway up from 4 mm up to 13 mm. She felt fine later in the day of the procedure. The following day, she had some shortness of breath. It seemed to improve with neb treatments which she takes at home. She had a little bit of blood in her sputum. Today, she was much more short of breath with any exertion at all. Laying perfectly still, she is fine but with any exertion, she is getting winded. She presented this way to the Emergency Room. She was found to be febrile with a temperature of 37.6. They have given her some steroids and a neb treatment. She feels a little more comfortable. She seems comfortable at the present time. There are no signs of any stridor. The Emergency Room doctor himself told me he did not hear definite stridor. She is not having chest pains. She is not having chills or sweats. PAST SURGICAL HISTORY: 1. Cataract surgery. 2. T&A. 3. Hand surgery. 4. Hysterectomy and BSO. 5. Knee surgery. PAST MEDICAL HISTORY: 1. Thyroid nodule. 2. Obesity. 3. Paroxysmal atrial fibrillation. 4. Diabetes. 5. Chronic kidney disease, stage IV. 6. Urinary tract infections. 7. Herpes zoster. PAST PULMONARY HISTORY: 1. Obstructive sleep apnea for which she wears CPAP at 14 cm. 2. Asthma. 3. Subglottic stenosis. 4. GERD. SOCIAL HISTORY: Tobacco never. ETOH - none. FAMILY HISTORY: Positive for uterine or ovarian cancer. ALLERGIES: CLARITHROMYCIN. MEDICATIONS AT HOME: 1. ProAir p.r.n. 2. Allopurinol 100 mg daily. 3. Azelastine 2 sprays b.i.d. to each nostril. 4. Pulmicort Flexhaler 180 mcg 2 puffs b.i.d. 5. Bumex 2 mg b.i.d. 6. Calcitriol 0.25 mcg daily. 7. Clonazepam 0.5 mg at bedtime. 8. Docusate 100 mg q.i.d. 9. Cymbalta 30 mg daily. 10. Vitamin D 50,000 units once monthly. 11. Vytorin 10/40 one daily in the evening. 12. Fexofenadine 180 mg 1 daily. 13. NovoLog 5 units subQ a.c. 14. Basaglar KwikPen 50 units subQ b.i.d. 15. Ipratropium/albuterol neb treatments q.i.d. 16. Imdur 90 mg daily. 17. Levothyroxine 50 mcg daily. 18. Reglan 10 mg daily. 19. Metoprolol 12.5 mg daily. 20. Montelukast 10 mg daily. 21. Nitro p.r.n. 22. Pantoprazole 40 mg daily. 23. Pseudoephedrine 120 mg b.i.d. 24. Mucinex D. 24. Januvia 100 mg daily. 25. Spironolactone 50 mg b.i.d. 24. Spiriva once daily. 26. Coumadin 5 mg alternating with 2.5 mg. REVIEW OF SYSTEMS: Her appetite was decreased. She did not eat much yesterday or today. She has some trouble swallowing. She has a sore throat. She feels a little weak. The remainder of the review of systems is negative. PHYSICAL EXAMINATION: GENERAL: The patient is a 72-year-old female who was cooperative, alert and oriented. She was in no distress. VITAL SIGNS: Temperature is 37.6. HEENT: Pupils were reactive. Nasal cannula was in place. Mouth exam was unremarkable. NECK: Palpation of the neck revealed no evidence of any crepitance. No lymph nodes were palpable. Her neck is large neck. HEART: Heart rate was 97 per minute. The rhythm was regular. Blood pressure 177/87. LUNGS: Auscultation of the lung davila revealed severely diminished breath sounds. No wheeze was heard and no stridor was heard but the breath sounds were decreased. Oxygen saturation was 98% on 2 L. ABDOMEN: Obese. It was soft and nontender. Bowel sounds were present. EXTREMITIES: Showed no cyanosis, clubbing or edema. Chest x-ray showed no active disease. There was no evidence of any pneumothorax. No infiltrates were noted. LABORATORY DATA: White count is 13.02. Hemoglobin 13.6. Platelets 217,000. INR is 1.1 and PTT was 25.7. Electrolytes show sodium 141, potassium 3.5, chloride 104, bicarbonate 32. BUN 58 with a creatinine of 2.17. Troponin is elevated at 0.189. Albumin 3.7 and total protein 8. Flu test was negative. EKG shows left ventricular hypertrophy. There is poor R-wave progression across the precordium. Cannot exclude a prior MN. There is a left anterior hemiblock. LA interval was prolonged indicating a first degree block. IMPRESSION: 1. Shortness of breath. 2. Status post dilation of tracheal stenosis - rule out edema or mucus. 3. Asthma by history. 4. Gastroesophageal reflux - no evidence of acute aspiration, but cannot exclude. 5. Elevated troponin. 6. Obstructive sleep apnea. RECOMMENDATIONS: 1. Advise watching the patient carefully in the intensive care unit. 2. I believe we should obtain an arterial blood gas. 3. Would order routine nebulizer treatments 4 times per day. 4. Would have the patient wear CPAP at 14 cm nightly. 5. Would give the patient IV steroids, either methylprednisolone or Decadron. 6. Suggest antibiotic coverage. 7. Would hold on Coumadin, but suggest full dose Lovenox which could then be held if she needed to have any procedures done. I did discuss the case with Dr. Flores who is currently out of town. He felt that if the patient needed intubation, the airway would stretch sufficiently to do so. He states he did intubate the patient himself following the procedure the other day and it passed through readily. Thank you very much for asking me to assist in her care.
[2018-02-07] MEDS ORDERED: INSULIN ASPART 100 UNITS/ML 3 ML PEN SC SCH ×2 (16:00)
[2018-02-07] MEDS ORDERED: HEPARIN IV BOLUS 4,000 UNIT in SYRINGE 0 ML IV ONE (16:15)
--- NOTE | 2018-02-07 16:35 | DIAGNOSTIC IMAGING REPORT ---
SOFT TISSUE NECK WITHOUT CLINICAL HISTORY: emphysema / injury , s/p recent ringotomy trauma TECHNIQUE: Transaxial acquisition with multi axial reformatted images COMPARISON STUDY: 07/28/2017 FINDINGS: Transaxial acquisition with multi axial reformatted images. The left thyroid demonstrates a 2 cm hypodense nodule with associated calcification. The right thyroid is uniform. The structures the glottic and subglottic regions are considered unremarkable. The airway is patent. No evidence for abscess or collection. Several small cervical nodes but no significant cervical adenopathy is identified. Glottis and epiglottis appear unremarkable. Major salivary glands are intact and symmetric. IMPRESSION: No acute process of the soft tissue neck. 2. 2 cm hypodense nodule of the left thyroid. 3. No evidence for abscess or collection. The above report was generated using voice recognition software. It may contain grammatical, syntax or spelling errors. Electronically signed by: Clive Martinez M.D. 02/07/2018 4:33 PM Dictated Date/Time: 02/07/2018 4:13 PM
[2018-02-07 16:39] VITALS: BP 173/104; PULSE 99; TEMP 37.1; O2SAT 98; Ht 154.9 cm; Wt 95.5 kg
--- NOTE | 2018-02-07 16:39 | DIAGNOSTIC IMAGING REPORT ---
(CHEST) THORAX WITHOUT CT DOSE: 1280.45 mGy.cm HISTORY: Dyspnea SOB TECHNIQUE: Multiaxial CT images of the chest were performed without contrast. A dose lowering technique was utilized adhering to the principles of ALARA. COMPARISON: 07/28/2017 FINDINGS: fixed hiatal hernia. No significant mediastinal or hilar adenopathy. Lungs are considered clear. There is minimal dependent basilar atelectasis. There are no focal infiltrative change. There is no significant nodular pathology. IMPRESSION: 1. Lungs are considered clear. 2. Minimal dependent basilar atelectasis. 3. Fixed hiatal hernia. The above report was generated using voice recognition software. It may contain grammatical, syntax or spelling errors. Electronically signed by: Clive Martinez M.D. 02/07/2018 4:37 PM Dictated Date/Time: 02/07/2018 4:36 PM
[2018-02-07] MEDS: HEPARIN 25,000 UNIT/500ML D5W 500 ML IV SCH (17:01)
[2018-02-07] MEDS: DOXYCYCLINE IV 100 MG in DEXTROSE 5% 100ML 100 ML IV SCH (17:07)
[2018-02-07] MEDS: DiphenhydrAMINE HCL 50 MG/ML VIAL IV SCH (17:56)
[2018-02-07 18:00] VITALS: BP 161/74; PULSE 81; O2SAT 96
[2018-02-07] MEDS ORDERED: PIPERACILL/TAZOBAC IV 3.375 GM in SODIUM CHLORIDE 0.9% 100ML 100 ML IV SCH (18:00)
[2018-02-07] MEDS ORDERED: NURSING VERBAL MED ORDER ONE ×2 (18:15→18:30)
[2018-02-07] MEDS: BUMETANIDE 1 MG TAB PO SCH (18:18)
[2018-02-07] MEDS: SPIRONOLACTONE 25 MG TAB PO SCH (18:18)
[2018-02-07] MEDS: LACTOBACILLUS ACIDOPHILUS 1 GM PACK PO SCH (18:19)
[2018-02-07] MEDS ORDERED: NovoLIN R BOLUS FROM BAG IV ONE (18:45)
[2018-02-07] MEDS: INSULIN REGULAR 250 UNITS in SODIUM CHLORIDE 0.9% 250ML 250 ML IV SCH (19:02)
[2018-02-07] MEDS: ALBUT/IPRATROP 3MG/0.5MG NEB 3 ML VIAL INH SCH (19:53)
[2018-02-07 19:54] VITALS: PULSE 83; O2SAT 99
[2018-02-07 20:00] VITALS: BP 161/82; PULSE 83; TEMP 37.1; O2SAT 99
[2018-02-07] MEDS: CLONAZEPAM 0.5 MG TAB PO SCH (20:14)
[2018-02-07] MEDS: DEXAMETHASONE INJ 4 MG in SYRINGE 0 ML IV SCH (20:14)
[2018-02-07] MEDS: METOCLOPRAMIDE HCL 10 MG TAB PO SCH (20:14)
[2018-02-07] MEDS: MONTELUKAST SOD 10 MG TAB PO SCH (20:14)
[2018-02-07] MEDS: EZETIMIBE/SIMVASTATIN 10/40 TAB PO SCH (20:15)
[2018-02-07] MEDS: INSULIN ASPART 100 UNITS/ML 3 ML PEN SC SCH (20:20)
--- NOTE | 2018-02-07 20:57 | Critical Care Consultation ---
Critical Care Consultation Date of Consultation: Feb 07, 2018. Attending Physician: Paula Hatch MD Reason for Consultation: SOB / possible laryngeal edema History of Present Illness 72-year-old female recently underwent a rigid bronchoscopy and Xomed debridement of tracheal stenosis on 05Feb2018. She reportedly tolerated the procedure well. She presented to the emergency department earlier today with feeling of worsening shortness of breath and a productive cough of yellowish sputum. Denies any fever, chills, feeling of wheezing, or chest pain. Upon speaking with patient in the ICU following multiple ED treatments, patient states she feels improved but not completely resolved regarding her hoarse voice and SOB. She notes no other acute concerns. Past Medical/Surgical History PMH: TAMMIE, asthma, COPD, CKD stage IV, HTN, HLD, hypothyroidism, DM2 on insulin, chronic diastolic CHF, A. fib, morbid obesity, GERD, glottic and subglottic tracheal stenosis. Social History Smoking Status: Never Smoker Marital Status: single Occupation Status: disabled Allergies Coded Allergies: Clarithromycin (Verified Allergy, Intermediate, RASH AND ITCHING, 02/05/18) Home Medications Scheduled Allopurinol (Zyloprim), 100 MG PO QAM Azelastine Hcl (Astepro), 2 SPRY BRIAN BID Budesonide (Inhalation) (Pulmicort Flexhaler), 2 PUFFS INH BID Bumetanide (Bumex), 2 MG PO BID Calcitriol (Rocaltrol Cap), 0.25 MCG PO DAILY Choline Fenofibrate (Trilipix), 135 MG PO QAM Clonazepam (Klonopin), 0.5 MG PO HS Docusate Sodium (Docusate Sodium), 100 MG PO QID Duloxetine Hcl (Cymbalta), 30 MG PO QAM Ergocalciferol (Vitamin D 80661 Unit), 1 TAB PO MONTHLY Ezetimibe/Simvastatin (Vytorin 10MG/40MG), 1 TAB PO HS Fexofenadine Hcl (Marie Allergy), 180 MG PO QAM Insulin Aspart (Novolog), 5 UNITS SC AC Insulin Glargine (Basaglar Kwikpen), 50 SC BID Ipratropium-Albuterol (Duoneb), 1 TREATMENT INH QID Isosorbide Mononitrate Ext Rel (Imdur Ext Rel), 90 MG PO QAM Levothyroxine Sodium (Levothyroxine Sodium), 50 MCG PO QAM Metoclopramide (Reglan), 10 MG PO QPM Metoprolol Succinate (Toprol Xl), 12.5 MG PO QAM Montelukast Sodium (Montelukast Sodium), 10 MG PO HS Pantoprazole (Protonix), 40 MG PO QAM Pseudoephedrine Hcl (12 Hour Decongestant), 1 TAB PO BID Pseudoephedrine-Guaifenesin (Mucinex D), 1 TAB PO QM Sitagliptin Phosphate (Januvia), 100 MG PO QAM Spironolactone (Aldactone), 50 MG PO BID Tiotropium [place] (Spiriva Handihaler), 1 CAP INH QAM Warfarin Sod (Jantoven), 5 MG PO 3XWK Warfarin Sodium (Coumadin), 2.5 MG PO 4XWK Scheduled PRN Albuterol Sulfate (Proair Respiclick), 2 PUFFS INH Q4H PRN for SOB/Wheezing Nitroglycerin (Nitrostat), 0.4 MG UT UD PRN for Chest Pain Current Inpatient Medications Current Inpatient Medications Medications (Trade) Dose Ordered Sig/Benito Route Start Time Stop Time Status Last Admin Dose Admin Bumetanide (Bumex Tab) 2 mg BID17 PO 02/07/18 18:00 03/09/18 17:59 02/07/18 18:18 2 MG Calcitriol (Rocaltrol Cap) 0.25 mcg DAILY PO 02/08/18 09:00 03/10/18 08:59 Clonazepam (Klonopin Tab) 0.5 mg HS PO 02/07/18 21:00 03/09/18 20:59 02/07/18 20:14 0.5 MG Duloxetine HCl (Cymbalta Cap) 30 mg QAM PO 02/08/18 09:00 03/10/18 08:59 Ezetimibe/ Simvastatin (Vytorin 10/40 Tab) 1 tab HS PO 02/07/18 21:00 03/09/18 20:59 02/07/18 20:15 1 TAB Insulin Aspart (novoLOG ASPART) 5 units AC SC 02/07/18 16:00 03/09/18 15:59 Future Hold Insulin Glargine (Lantus Solostar Pen) 30 units BID SC 02/07/18 21:00 03/09/18 20:59 Future Hold Albuterol/ Ipratropium (Duoneb) 3 ml QIDR INH 02/07/18 20:00 03/09/18 19:59 02/07/18 19:53 3 ML Isosorbide Mononitrate (Imdur Ext Rel Tab) 90 mg QAM PO 02/08/18 09:00 03/10/18 08:59 Levothyroxine Sodium (Synthroid Tab) 50 mcg DAILYBB PO 02/08/18 06:00 03/10/18 05:59 Metoclopramide HCl (Reglan Tab) 10 mg QPM PO 02/07/18 21:00 03/09/18 20:59 02/07/18 20:14 10 MG Metoprolol Succinate (Toprol Xl Tab) 12.5 mg QAM PO 02/08/18 09:00 03/10/18 08:59 Montelukast Sodium (Singulair Tab) 10 mg HS PO 02/07/18 21:00 03/09/18 20:59 02/07/18 20:14 10 MG Nitroglycerin (Nitrostat Tab) 0.4 mg UD PRN UT 02/07/18 14:45 03/09/18 14:44 Spironolactone (Aldactone Tab) 50 mg BID17 PO 02/07/18 18:00 03/09/18 17:59 02/07/18 18:18 50 MG Tiotropium [place] (Spiriva Handihaler Inhaler) 1 puff QAM INH 02/08/18 09:00 03/10/18 08:59 Albuterol (Ventolin Hfa Inhaler) 2 puffs Q4H PRN INH 02/07/18 14:45 03/09/18 14:44 Miscellaneous Information (Order Awaiting Action) 1 ea QS N/A 02/07/18 18:00 03/09/18 17:59 Miscellaneous Information (Order Awaiting Action) 1 ea QS N/A 02/07/18 18:00 03/09/18 17:59 Miscellaneous Information (Order Awaiting Action) 1 ea QS N/A 02/07/18 18:00 03/09/18 17:59 Miscellaneous Information (Order Awaiting Action) 1 ea QS N/A 02/07/18 18:00 03/09/18 17:59 Doxycycline Hyclate 100 mg/ Dextrose 110 ml @ 50 mls/hr Q12H IV 02/07/18 17:00 02/14/18 16:59 02/07/18 17:07 50 MLS/HR Lactobacillus Acidophilus (Lactinex Granules Pack) 1 gm TIDM PO 02/07/18 18:00 03/09/18 17:59 02/07/18 18:19 1 GM Dexamethasone Sodium Phosphate 4 mg/Syringe 1 ml @ 1 mls/min Q8H IV 02/07/18 20:00 03/09/18 19:59 02/07/18 20:14 1 MLS/MIN Pantoprazole Sodium 40 mg/ Syringe 10 ml @ 5 mls/min DAILY IV 02/08/18 09:00 03/10/18 08:59 Miscellaneous Information (Icu Protocol For Hyperglycemia) 1 ea PRN PRN N/A 02/07/18 15:00 02/09/18 14:59 Glucose (Glucose 40% Gel) 15-30 GRAMS 15 GRAMS... UD PRN PO 02/07/18 15:00 03/09/18 14:59 Glucose (Glucose Chew Tab) 4-8 Tablets 4 Tabl... UD PRN PO 02/07/18 15:00 03/09/18 14:59 Dextrose (Dextrose 50% 50ML Syringe) 25-50ML OF 50% DW IV FOR... UD PRN IV 02/07/18 15:00 03/09/18 14:59 Glucagon (Glucagon Inj) 1 mg UD PRN SQ 02/07/18 15:00 03/09/18 14:59 Miscellaneous Information (Consult) 1 ea UD PRN N/A 02/07/18 15:15 03/09/18 15:14 Heparin Sodium/ Dextrose 500 ml @ 16 mls/hr Q24H IV 02/07/18 16:15 03/09/18 16:14 02/07/18 17:01 16 MLS/HR Piperacillin Sod/ Tazobactam Sod 3.375 gm/Sodium Chloride 115 ml @ 28.75 mls/ hr Q8H IV 02/07/18 22:00 02/14/18 21:59 Diphenhydramine HCl (Benadryl Inj) 12.5 mg Q8H IV 02/07/18 18:00 03/09/18 17:59 02/07/18 17:56 12.5 MG Insulin Aspart (novoLOG ASPART) SLIDING SCALE If C... Q6 SC 02/08/18 00:00 03/09/18 15:59 Future Hold Insulin Human Regular 250 units/ Sodium Chloride 252.5 ml @ 0 mls/hr Q24H IV 02/07/18 18:45 03/09/18 18:44 02/07/18 19:02 3.5 MLS/HR Insulin Aspart (novoLOG ASPART) SLIDING SCALE PCHS NE 02/07/18 21:00 03/09/18 20:59 Review of Systems See above for pertinent positives & negatives. A total of 10 systems reviewed and were otherwise negative. Constitutional: No fever, No chills Respiratory: + cough, + sputum, + shortness of breath, + dyspnea on exertion Cardiovascular: No chest pain, No edema Abdomen: No pain, No nausea, No vomiting Physical Exam Date Time Temp Pulse Resp B/P (MAP) Pulse Ox O2 Delivery O2 Flow Rate FiO2 02/07/18 19:54 83 18 99 Room Air 02/07/18 18:00 81 19 161/74 (103) 96 Room Air 02/07/18 16:39 37.1 99 20 173/104 98 Nasal Cannula 2.0 02/07/18 15:13 94 18 152/83 97 Room Air 02/07/18 13:24 97 20 177/87 98 Nasal Cannula 2.0 02/07/18 12:23 91 20 172/86 98 Nasal Cannula 2.0 02/07/18 11:08 97 Nasal Cannula 2.0 02/07/18 11:08 37.6 101 28 166/85 90 Room Air 02/07/18 11:08 90 Room Air 02/07/18 11:08 90 Room Air 02/07/18 10:49 93 Exam around 1900 this evening: General Appearance: Awake, alert & oriented, comfortable in general, NAD. CV: +S1S2 RRR, no murmur. Pulm: Clear to auscultation throughout. No accessory muscle use. Patient has a hoarse voice which she says has improved since this morning. Mild audible upper airway respiratory sounds. No notable stridor. Abdomen: +BS, soft, non-tender, non-distended. Extremities: No pedal edema or calf tenderness. Moving all extremities naturally and easily. Neuro: No gross neuro deficits. Laboratory Results Last 24 Hours Test 02/07/18 00:00 02/07/18 10:46 02/07/18 11:00 02/07/18 15:32 Urine Color YELLOW Urine Appearance CLEAR Urine pH 5.0 Urine Specific [place] 1.021 Urine Protein 2+ Urine Glucose (UA) 3+ Urine Ketones NEG Urine Occult Blood TRACE Urine Nitrite NEG Urine Bilirubin NEG Urine Urobilinogen NEG Urine Leukocyte Esterase NEG Urine WBC (Auto) 1-5 /hpf Urine RBC (Auto) 0-4 /hpf Urine Hyaline Casts (Auto) 1-5 /lpf Urine Epithelial Cells (Auto) >30 /lpf Urine Bacteria (Auto) NEG White Blood Count 13.02 K/uL Red Blood Count 4.43 M/uL Hemoglobin 13.6 g/dL Hematocrit 40.8 % Mean Corpuscular Volume 92.1 fL Mean Corpuscular Hemoglobin 30.7 pg Mean Corpuscular Hemoglobin Concent 33.3 g/dl Platelet Count 217 K/uL Mean Platelet Volume 10.2 fL Neutrophils (%) (Auto) 79.8 % Lymphocytes (%) (Auto) 9.5 % Monocytes (%) (Auto) 9.4 % Eosinophils (%) (Auto) 0.5 % Basophils (%) (Auto) 0.2 % Neutrophils # (Auto) 10.40 K/uL Lymphocytes # (Auto) 1.24 K/uL Monocytes # (Auto) 1.22 K/uL Eosinophils # (Auto) 0.06 K/uL Basophils # (Auto) 0.02 K/uL RDW Standard Deviation 48.7 fL RDW Coefficient of Variation 14.5 % Immature Granulocyte % (Auto) 0.6 % Immature Granulocyte # (Auto) 0.08 K/uL Prothrombin Time 11.8 SECONDS Prothromb Time International Ratio 1.1 Activated Partial Thromboplast Time 25.7 SECONDS Partial Thromboplastin Ratio 1.0 Sodium Level 141 mmol/L Potassium Level 3.5 mmol/L Chloride Level 104 mmol/L Carbon Dioxide Level 32 mmol/L Anion Gap 5.0 mmol/L Blood Urea Nitrogen 58 mg/dl Creatinine 2.17 mg/dl Est Creatinine Clear Calc Drug Dose 24.5 ml/min Estimated GFR () 25.2 Estimated GFR (Non- 21.7 BUN/Creatinine Ratio 26.8 Random Glucose 277 mg/dl Calcium Level 9.8 mg/dl Total Bilirubin 0.4 mg/dl Aspartate Amino Transf (AST/SGOT) 21 U/L Alanine Aminotransferase (ALT/SGPT) 26 U/L Alkaline Phosphatase 32 U/L Troponin I 0.189 ng/ml Total Protein 8.0 gm/dl Albumin 3.7 gm/dl Globulin 4.3 gm/dl Albumin/Globulin Ratio 0.9 Influenza Type A Antigen Neg for Influ A Influenza Type B Antigen Neg for Influ B Arterial Blood pH 7.46 Arterial Blood Partial Pressure CO2 45 mmHg Arterial Blood Partial Pressure O2 127 mm/Hg Arterial Blood HCO3 31 mmol/L Arterial Blood Oxygen Saturation 98.7 % Arterial Blood Base Excess 6.1 mEq/L Arterial Blood Gas Delivery 1L Demetrius Test POS Test 02/07/18 18:16 02/07/18 19:58 02/07/18 20:46 Bedside Glucose 329 mg/dl 354 mg/dl Assessment & Plan 72-year-old female was admitted on 07Feb2018 for shortness of breath and airway watch regarding glottic and subglottic tracheal stenosis. PMH: TAMMIE, asthma, COPD, CKD stage IV, HTN, HLD, hypothyroidism, DM2 on insulin, chronic diastolic CHF, A. fib, morbid obesity, GERD, glottic and subglottic tracheal stenosis. B[employer] MECH[employer]IC: CAM-ICU negative. No known acute [employer] MECH[employer]IC issues. On Cymbalta and clonazepam. Pulm: 26Apr s/p flexible and rigid bronchoscopy with Xomed micro debridement. Reported airway diameter increase from 4-13 mm. Some SOB since that time. CT soft tissue neck showed no acute process. CT chest showed clear lungs. Emergently given Decadron 10 mg IV and a DuoNeb.. ABG 7.46 / 45 / 31. Now on duoneb QID, dexamethasone 4 mg q8h, diphenhydramine q8h, Spiriva daily, Singulair daily. Airway watch ongoing. - Pulmonary onboard, see related notes. CVS: Significant CVS history as above. TnI 0.189. Patient denies any chest pain or discomfort. EKG following this notes NSR 93, first-degree AV block, minimal ST depression in lateral leads. - Serial troponin pending. Re-checking EKG as well. - On Bumex, Vytorin, Imdur, metoprolol, and spironolactone. ID: No known recent infectious issues. Afebrile. WBC 13, but has been on home prednisone. Influenza negative. MRSA nasal swab negative. Antibiotics suggested by pulmonary, so started on Zosyn and doxycycline. Endo: History DM 2 on insulin and hypothyroidism. On Synthroid. Initial blood sugar elevated, likely partially due to steroids. Starting on insulin drip. Monitoring. Renal/Lytes: History CKD stage IV, Cr in September 2017 was 2.34. Presently Cr 2.17. Initial electrolytes okay. UA okay. Monitoring. GI: NPO for now. On Protonix and Reglan. BMI 39. - Has a fixed hiatal hernia on CT chest as well. Heme: Hb 13, platelets 217, INR 1.1. No known acute issues. DVT prophy: Held patient's home Coumadin due to possible emergent airway procedure. On heparin drip. Lines: PIV. Code status: Full code. PT/OT: Deferred. Disposition: ICU care. Resident Physician Supervision Note: Dr. Preciado was resident physician during care of patient. I separately evaluated patient and did history and exam. I discussed the case with the resident and generally agree with the findings and plan. Patient reports exertional dyspnea worse than preprocedure upon initial presentation yesterday. Currently she states she is about 50% improved from where she was. In review of prior records EKG demonstrates evidence of T-wave inversion laterally and increasing troponins, she is currently on heparin from a cardiac ischemia standpoint she would be treated, we will add a echocardiogram and consult cardiology for their input. Patient has a history of atrial fibrillation, so is possible that she could have had some aspect of demand ischemia we are now seeing several days out from the inciting event. We will add a baby aspirin at this point. This certainly could be some aspect of cardiopulmonary disease with a pre-existing COPD and possible increased airway resistance secondary to reactive edema. She is on Decadron at this time I have changed the stop date for 3 days of steroids. I think single antibiotic coverage with doxycycline cycling would be adequate and have discontinued the Zosyn. She does have baseline renal insufficiency. I also reviewed the anesthesia record from February 05, there is no intraoperative hypotension recorded. Continued ICU stay for possible critical airway. Documented By: Drake Anderson DO Resident Tracking Resident Involvement: Resident Care Provided Care Provided: Adult Hospital Medicine (ICU)
[2018-02-07] MEDS ORDERED: INSULIN GLARGINE SOLOSTAR 100 UNITS/ML 3 ML PEN SC SCH (21:00)
[2018-02-07] MEDS ORDERED: PHARMACY GLYCEMIC MGMT CONSULT PRN (21:15)
[2018-02-07 22:00] VITALS: BP 167/65; PULSE 74; O2SAT 99
[2018-02-07] MEDS: PIPERACILL/TAZOBAC IV 3.375 GM in NSS 100ML IV SCH (22:04)
[2018-02-07 23:12] LABS: PTT PATIENT 29.4 SECONDS (21.0-31.0)
[2018-02-07 23:59] VITALS: O2SAT 97
[2018-02-08] VITALS (19 sets, daily range): BP systolic 113–179; BP diastolic 60–94; PULSE 59–77; TEMP 36.5–36.9; O2SAT 97–100
[2018-02-08] MEDS ORDERED: INSULIN ASPART 100 UNITS/ML 3 ML PEN SC SCH
[2018-02-08] MEDS ORDERED: HEPARIN IV BOLUS 4,500 UNIT in SYRINGE 0 ML IV ONE ×2 (00:30→07:00)
[2018-02-08] MEDS: DiphenhydrAMINE HCL 50 MG/ML VIAL IV SCH ×3 (02:18→17:47)
[2018-02-08] MEDS: DEXAMETHASONE INJ 4 MG in SYRINGE 0 ML IV SCH ×3 (04:04→20:47)
[2018-02-08] MEDS: DOXYCYCLINE IV 100 MG in DEXTROSE 5% 100ML 100 ML IV SCH ×2 (04:48→16:39)
[2018-02-08] MEDS ORDERED: ALBUTEROL HFA 8 GM INHALER INH PRN (05:45)
[2018-02-08] MEDS: PIPERACILL/TAZOBAC IV 3.375 GM in NSS 100ML IV SCH (05:45)
[2018-02-08] MEDS: LEVOTHYROXINE 50 MCG TAB PO SCH (05:45)
[2018-02-08 05:46] LABS: BASO % 0.2 %; BASO ABS # 0.02 K/uL (0-0.2); HEMATOCRIT 39.6 % (37-47); HEMOGLOBIN 13.3 g/dL (12.0-16.0); IG# 0.12 K/uL (0.00-0.02); LYMPH % 7.4 %; LYMPH ABS # 0.98 K/uL (1.2-3.4); MEAN CELL VOLUME 92.3 fL (80-100); MEAN CORPUSCULAR HGB CONC 33.6 g/dl (32-36); MONO ABS # 1.06 K/uL (0.11-0.59); NEUT % 83.5 %; NEUT ABS # 11.07 K/uL (1.4-6.5); PLATELET COUNT 217 K/uL (130-400); RED CELL DISTRIBUTION WIDTH CV 14.5 % (11.5-14.5); RED CELL DISTRIBUTION WIDTH SD 49.1 fL (36.4-46.3); WHITE BLOOD COUNT 13.25 K/uL (4.8-10.8)
[2018-02-08 05:59] LABS: PTT PATIENT 37.5 SECONDS (21.0-31.0)
[2018-02-08 06:19] LABS: CALCIUM 9.1 mg/dl (8.5-10.1); POTASSIUM 3.5 mmol/L (3.5-5.1)
[2018-02-08 06:41] LABS: PHOSPHORUS 2.7 mg/dl (2.5-4.9)
[2018-02-08] MEDS: ALBUT/IPRATROP 3MG/0.5MG NEB 3 ML VIAL INH SCH ×4 (07:21→19:42)
[2018-02-08] MEDS: INSULIN ASPART 100 UNITS/ML 3 ML PEN SC SCH ×4 (07:39→21:00)
[2018-02-08] MEDS: CALCITRIOL 0.25 MCG CAP PO SCH (07:55)
[2018-02-08] MEDS: LACTOBACILLUS ACIDOPHILUS 1 GM PACK PO SCH ×3 (07:55→16:38)
[2018-02-08] MEDS: DULOXETINE (CYMBALTA) 30 MG CAP PO SCH (07:55)
[2018-02-08] MEDS: BUMETANIDE 1 MG TAB PO SCH ×2 (07:56→16:38)
[2018-02-08] MEDS: METOPROLOL SUCC 25MG EXT REL TAB PO SCH (07:56)
[2018-02-08] MEDS: ISOSORBIDE MONONITRATE 30 MG TABCR PO SCH (07:56)
[2018-02-08] MEDS: SPIRONOLACTONE 25 MG TAB PO SCH ×2 (07:57→16:38)
[2018-02-08] MEDS: TIOTROPIUM BROMIDE 5 PUFF/90 MCG INH INH SCH (07:58)
[2018-02-08] MEDS ORDERED: ASPIRIN/ALUM/MAGNES/CAL CARB 325 MG TAB PO SCH (09:00)
[2018-02-08] MEDS ORDERED: PANTOprazole SOD 40 MG TAB PO SCH (09:00)
[2018-02-08] MEDS: ASPIRIN 81 MG ECTAB PO SCH (09:14)
[2018-02-08] MEDS: PANTOprazole INJ 40 MG in SYRINGE 0 ML IV SCH (09:14)
--- NOTE | 2018-02-08 11:59 | Pharmacy Progress Note ---
Glycemic Control Intl Consult Date of Service Feb 08, 2018. Scope Glycemic Pharmacist consulted by Dr Jamaal Teixeira on 02/07 for glycemic control and to write orders per [facility] inpatient glycemic control protocol Objective Weight (Kilograms): 92.700 Accuchecks BSG (last 24hrs): Test 02/07/18 18:16 02/07/18 19:58 02/07/18 21:01 02/07/18 22:01 Bedside Glucose 329 mg/dl (70-90) 354 mg/dl (70-90) 302 mg/dl (70-90) 253 mg/dl (70-90) Test 02/07/18 22:49 02/07/18 23:56 02/08/18 02:03 02/08/18 03:17 Bedside Glucose 230 mg/dl (70-90) 192 mg/dl (70-90) 159 mg/dl (70-90) 166 mg/dl (70-90) Test 02/08/18 03:59 02/08/18 04:52 02/08/18 05:38 02/08/18 07:06 Bedside Glucose 177 mg/dl (70-90) 153 mg/dl (70-90) 159 mg/dl (70-90) Random Glucose 149 mg/dl (70-99) Test 02/08/18 09:12 02/08/18 11:06 Bedside Glucose 146 mg/dl (70-90) 145 mg/dl (70-90) Laboratory Data (last 24hrs) Test 02/08/18 05:38 Anion Gap 7.0 mmol/L BUN/Creatinine Ratio 25.9 Blood Urea Nitrogen 52 mg/dl Creatinine 2.00 mg/dl Potassium Level 3.5 mmol/L Sodium Level 144 mmol/L White Blood Count 13.25 K/uL Red Blood Count 4.29 M/uL Hemoglobin 13.3 g/dL Hematocrit 39.6 % Mean Corpuscular Volume 92.3 fL Mean Corpuscular Hemoglobin 31.0 pg Mean Corpuscular Hemoglobin Concent 33.6 g/dl Platelet Count 217 K/uL Mean Platelet Volume 10.0 fL Neutrophils (%) (Auto) 83.5 % Lymphocytes (%) (Auto) 7.4 % Monocytes (%) (Auto) 8.0 % Eosinophils (%) (Auto) 0.0 % Basophils (%) (Auto) 0.2 % Neutrophils # (Auto) 11.07 K/uL Lymphocytes # (Auto) 0.98 K/uL Monocytes # (Auto) 1.06 K/uL Eosinophils # (Auto) 0.00 K/uL Basophils # (Auto) 0.02 K/uL Recent Pertinent Medications Outpatient Anti-diabetic Regimen: * Basaglar 50 units SC BID * Novolog 5 units SC AC * Januvia 100 mg po qAM * A1c = 9.6% on 12/25/17 The patient is currently receiving: * Insulin drip @ 4.7 units/hr (stable rate since 199) Risk Factors for Insulin Resistance: * Steroids: Dexamethasone 10 mg IV x1 02/07 afternoon then 4 mg IV q8h * Infection: possible PNA vs. COPD exacerbation - on doxycycline * IVF: Heparin drip mixed in D5W * Diet: NPO Assessment & Plan ASSESSMENT: * 72 yo F admitted with SOB. S/p bronch and debridement of tracheal stenosis on 02/05/18 (2 days prior to arrival). * Insulin drip initiated 02/07 per ICU hyperglycemic protocol. Initiated at 5.9 units/hr but has been stable at 4.7 units/hr since 199 * BSG's now well controlled, ranging 145-177 mg/dL since 199 * Despite stable insulin drip rate and BSG's in range, patient is requiring a high insulin drip rate (would provide 113 units/day at current rate) and dexamethasone 4 mg IV q8h continues * Therefore recommend continuation of insulin drip at this time - discussed w Dr. Anderson this AM who agreed. Plan to attempt possible transition to SC basal/bolus early tomorrow PLAN FOR INPATIENT GLYCEMIC CONTROL: * Continue IV insulin infusion per severe stress protocol * Goal Range 110 - 180 mg/dl * In the critical care setting, continuous IV insulin infusion has been shown to be the best method for achieving glycemic targets. * Holding outpatient oral diabetes medications * NOVOLOG per scale HS for CHO coverage if patient ordered a diet (ratio determined based on insulin drip calculator) * Please note that the plan above was derived based on current level of insulin resistance and hospital stress. These recommendations are appropriate for inpatient admission only. Plan of care upon discharge will need to be reassessed to avoid potential outpatient hypo/hyperglycemia. Thank you.
--- NOTE | 2018-02-08 12:21 | ECHOCARDIOGRAM REPORT ---
*NOTICE TO RECEIVING DEMOCRAT AGENCY This information is strictly Confidential and protected under [place] law. [place] law prohibits you from making any further disclosure of this information unless further disclosure is expressly permitted by the written consent of the person to whom it pertains or is authorized by law. A general authorization for the release of medical or other information is not sufficient for this purpose. Hospital accepts no responsibility if the information is made available to any other person, INCLUDING THE PATIENT. Interpretation Summary * Name: KRYSTAL LESLIE Study Date: 02/08/2018 08:51 AM BP: 149/66 mmHg * Patient Location: .MSICU\S\E107\S\1 HR: 76 * : 1945 (M/d/yyyy) Gender: Female Height: 61 in * Age: 72 yrs Ethnicity: CA Weight: 204 lb * Ordering Physician: Drake Anderson * Referring Physician: Self, Referred * Performed By: Zoe Merritt RDCS * * Reason For Study: ELEVATED TROPONIN * BSA: 1.9 m2 * -- Conclusions -- * There is mild concentric left ventricular hypertrophy. * Left ventricular systolic function is normal. * Grade I diastolic dysfunction, (abnormal relaxation pattern). * The left atrium is moderately dilated. * Mild aortic regurgitation. Procedure Details * A contrast injection of Definity was performed to improve assessment of LV function. * Contrast was injected into an intravenous site in the right arm. * One vial of Definity ultrasound contrast was diluted in normal saline to a total volume of 10 ml. A total of '2' ml of solution was administered during imaging. * Lot # [id number] of Definity utilized for procedure. * Expiration date JAN 29. * The attending nurse who injected the contrast agent was SID TINSLEY. Left Ventricle * The left ventricle is normal in size. * There is mild concentric left ventricular hypertrophy. * Ejection Fraction = 55-60%. * Left ventricular systolic function is normal. * Grade I diastolic dysfunction, (abnormal relaxation pattern). * The left ventricular wall motion is normal. Right Ventricle * The right ventricle is normal in size and function. Atria * The left atrium is moderately dilated. * Right atrial size is normal. Mitral Valve * The mitral valve is grossly normal. * There is no mitral regurgitation noted. Tricuspid Valve * The tricuspid valve is not well visualized, but is grossly normal. * Significant tricuspid regurgitation is absent. Aortic Valve * The aortic valve is trileaflet. * No hemodynamically significant valvular aortic stenosis. * Mild aortic regurgitation. Pulmonic Valve * The pulmonic valve is not well visualized. Great Vessels * The aortic root is normal size. Pericardium/Pleural * There is no pericardial effusion. MMode 2D Measurements and Calculations IVSd 1.6 cm IVSs 1.6 cm LVIDd 4.0 cm LVIDs 2.8 cm LVPWd 1.5 cm LVPWs 2.5 cm IVS/LVPW 1.1 FS 31.6 % EDV(Teich) 71.9 ml ESV(Teich) 28.7 ml EF(Teich) 60.1 % EDV(cubed) 66.2 ml ESV(cubed) 21.1 ml EF(cubed) 68.0 % % IVS thick 0.88 % % LVPW thick 67.8 % LV mass(C)d 249.7 grams LV mass(C)dI 131.0 grams/m\S\2 LV mass(C)s 254.7 grams LV mass(C)sI 133.7 grams/m\S\2 SV(Teich) 43.2 ml SI(Teich) 22.7 ml/m\S\2 SV(cubed) 45.0 ml SI(cubed) 23.6 ml/m\S\2 Ao root diam 3.2 cm Ao root area 7.9 cm\S\2 LA dimension 4.7 cm LA/Ao 1.5 LVAd ap4 27.4 cm\S\2 LVLd ap4 8.1 cm EDV(MOD-sp4) 75.7 ml EDV(sp4-el) 78.0 ml LVAs ap4 16.3 cm\S\2 LVLs ap4 6.8 cm ESV(MOD-sp4) 35.6 ml ESV(sp4-el) 33.3 ml EF(MOD-sp4) 53.0 % EF(sp4-el) 57.3 % LVAd ap2 36.0 cm\S\2 LVLd ap2 8.7 cm EDV(MOD-sp2) 124.6 ml EDV(sp2-el) 126.6 ml LVAs ap2 21.7 cm\S\2 LVLs ap2 7.5 cm ESV(MOD-sp2) 53.0 ml ESV(sp2-el) 52.9 ml EF(MOD-sp2) 57.4 % EF(sp2-el) 58.2 % LVLd %diff 6.0 % EDV(MOD-bp) 99.0 ml LVLs %diff 9.9 % ESV(MOD-bp) 45.2 ml EF(MOD-bp) 54.3 % SV(MOD-sp4) 40.1 ml SI(MOD-sp4) 21.0 ml/m\S\2 SV(MOD-sp2) 71.5 ml SI(MOD-sp2) 37.6 ml/m\S\2 SV(MOD-bp) 53.8 ml SI(MOD-bp) 28.2 ml/m\S\2 SV(sp4-el) 44.7 ml SI(sp4-el) 23.5 ml/m\S\2 SV(sp2-el) 73.7 ml SI(sp2-el) 38.7 ml/m\S\2 Doppler Measurements and Calculations MV E max paddy 44.5 cm/sec MV A max paddy 55.1 cm/sec MV E/A 0.81 MV dec time 0.26 sec Ao V2 max 153.6 cm/sec Ao max PG 9.4 mmHg Ao max PG (full) 7.2 mmHg AI max paddy 395.5 cm/sec AI max PG 62.6 mmHg AI dec slope 161.8 cm/sec\S\2 AI P1/2t 716.0 msec LV V1 max PG 2.3 mmHg LV V1 max 75.1 cm/sec
[2018-02-08 12:39] LABS: PTT PATIENT 41.6 SECONDS (21.0-31.0)
[2018-02-08] MEDS ORDERED: HEPARIN IV BOLUS 3,000 UNIT in SYRINGE 0 ML IV ONE (13:30)
--- NOTE | 2018-02-08 13:37 | PULMONARY PROGRESS NOTE ---
DATE: 02/08/2018 Pulmonary progress note. TIME: 12:50 p.m. SUBJECTIVE: The patient feels much less short of breath today. She states she is about 50% better. Her voice feels better. Nursing staff reports she has been comfortable. She was able to get out of bed without difficulty. OBJECTIVE: GENERAL: The patient appears comfortable. Temperature is 36.8. EARS, NOSE, THROAT: Exam unremarkable. VITAL SIGNS: Heart rate is 76 per minute. Rhythm regular. Blood pressure 137/83. LUNGS: Lung davila revealed diminished breath sounds. They are, however, better heard than yesterday. She does clearly have improved aeration. Saturations on room air were 98%. Respiratory rate is 14. EXTREMITIES: Showed no cyanosis, clubbing or edema. The patient's CAT scan of the chest showed clear lungs with minimal atelectasis and a hiatal hernia. CAT scan of the neck reported the glottic and subglottic areas were unremarkable. I did review it myself and it looked relatively similar to before, but it was difficult to actually assess the area of narrowing. She did have a left thyroid nodule. LABORATORY DATA: White count is 13.25. Hemoglobin 13.3. Platelets 217,000. PTT today 41.6. Urine glucose is 3+. Blood gas yesterday afternoon on 1 liter showed a pH of 7.46 with a pCO2 of 45 and a pO2 of 127. Her BUN was 52 with a creatinine of 2.0. Troponin was initially elevated at 0.189, then 0.130, then 0.083. IMPRESSION: 1. Shortness of breath -- improved. 2. Status post dilation for tracheostenosis. 3. Asthma by history. 4. Reflux. 5. Obstructive sleep apnea -- on CPAP-14. 6. Elevated troponins. RECOMMENDATIONS: The patient seems to be doing much better. Her airflow has definitely improved. Would continue with her bronchodilator therapy. She is still on Decadron. Dr. Flores wants to do a quick bronchoscopy tomorrow just to review the anatomy of the upper airway to be sure that there is no significant issue. [facility]
[2018-02-08] MEDS: HEPARIN 25,000 UNIT/500ML D5W 500 ML IV SCH ×2 (14:29→19:06)
--- NOTE | 2018-02-08 16:49 | Cardiology Consultation ---
Cardiology Consultation Date of Consultation: Feb 08, 2018. 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 Patient underwent dilation of her trachea in approximately 1 day later began to experience worsening dyspnea. The dyspnea became severe and she presented [facility] for evaluation. She is currently being treated for edema and possible infection. At the time of her initial evaluation cardiac biomarkers were obtained and were elevated. Patient did not report symptoms of chest discomfort at any time in the recent past. She did have some mild discomfort in her throat. She does not measure her oxygen at home nor did she use supplemental oxygen at home. She was not overtly dizzy or lightheaded. She has not been aware of any palpitations or racing heartbeats. She did not have symptoms of orthopnea. At the time of the interview today the patient states that her breathing is improved but not back to baseline. She did not endorse any symptoms of chest discomfort or other discomfort currently. She does have an element of coughing. She claims to be eating well. Past Medical/Surgical History Tracheal stenosis status post dilation Obstructive sleep apnea Chronic renal insufficiency Diabetes mellitus Paroxysmal atrial fibrillation Coronary artery disease, presumed Hyperlipidemia Hypertension Past surgical history: Adenoidectomy Hand surgery Hysterectomy Knee surgery Tonsillectomy Family History Noncontributory given her age and comorbidities Social History Smoking Status: Never Smoker History of Alcohol Use: No Review of Systems Per HPI All Other Systems: Reviewed and Negative Allergies Coded Allergies: Clarithromycin (Verified Allergy, Intermediate, RASH AND ITCHING, 02/05/18) Medications Current Inpatient Medications Medications (Trade) Dose Ordered Sig/Benito Route Start Time Stop Time Status Last Admin Dose Admin Bumetanide (Bumex Tab) 2 mg BID17 PO 02/07/18 18:00 03/09/18 17:59 02/08/18 16:38 2 MG Calcitriol (Rocaltrol Cap) 0.25 mcg DAILY PO 02/08/18 09:00 03/10/18 08:59 02/08/18 07:55 0.25 MCG Clonazepam (Klonopin Tab) 0.5 mg HS PO 02/07/18 21:00 03/09/18 20:59 02/07/18 20:14 0.5 MG Duloxetine HCl (Cymbalta Cap) 30 mg QAM PO 02/08/18 09:00 03/10/18 08:59 02/08/18 07:55 30 MG Ezetimibe/ Simvastatin (Vytorin 10/40 Tab) 1 tab HS PO 02/07/18 21:00 03/09/18 20:59 02/07/18 20:15 1 TAB Albuterol/ Ipratropium (Duoneb) 3 ml QIDR INH 02/07/18 20:00 03/09/18 19:59 02/08/18 15:26 3 ML Isosorbide Mononitrate (Imdur Ext Rel Tab) 90 mg QAM PO 02/08/18 09:00 03/10/18 08:59 02/08/18 07:56 90 MG Levothyroxine Sodium (Synthroid Tab) 50 mcg DAILYBB PO 02/08/18 06:00 03/10/18 05:59 02/08/18 05:45 50 MCG Metoclopramide HCl (Reglan Tab) 10 mg QPM PO 02/07/18 21:00 03/09/18 20:59 02/07/18 20:14 10 MG Metoprolol Succinate (Toprol Xl Tab) 12.5 mg QAM PO 02/08/18 09:00 03/10/18 08:59 02/08/18 07:56 12.5 MG Montelukast Sodium (Singulair Tab) 10 mg HS PO 02/07/18 21:00 03/09/18 20:59 02/07/18 20:14 10 MG Nitroglycerin (Nitrostat Tab) 0.4 mg UD PRN UT 02/07/18 14:45 03/09/18 14:44 Spironolactone (Aldactone Tab) 50 mg BID17 PO 02/07/18 18:00 03/09/18 17:59 02/08/18 16:38 50 MG Tiotropium Stanley (Spiriva Handihaler Inhaler) 1 puff QAM INH 02/08/18 09:00 03/10/18 08:59 02/08/18 07:58 1 PUFF Miscellaneous Information (Order Awaiting Action) 1 ea QS N/A 02/07/18 18:00 03/09/18 17:59 Miscellaneous Information (Order Awaiting Action) 1 ea QS N/A 02/07/18 18:00 03/09/18 17:59 Miscellaneous Information (Order Awaiting Action) 1 ea QS N/A 02/07/18 18:00 03/09/18 17:59 Miscellaneous Information (Order Awaiting Action) 1 ea QS N/A 02/07/18 18:00 03/09/18 17:59 Doxycycline Hyclate 100 mg/ Dextrose 110 ml @ 50 mls/hr Q12H IV 02/07/18 17:00 02/14/18 16:59 02/08/18 16:39 50 MLS/HR Lactobacillus Acidophilus (Lactinex Granules Pack) 1 gm TIDM PO 02/07/18 18:00 03/09/18 17:59 02/08/18 16:38 1 GM Dexamethasone Sodium Phosphate 4 mg/Syringe 1 ml @ 1 mls/min Q8H IV 02/07/18 20:00 02/10/18 12:00 02/08/18 11:40 1 MLS/MIN Pantoprazole Sodium 40 mg/ Syringe 10 ml @ 5 mls/min DAILY IV 02/08/18 09:00 03/10/18 08:59 02/08/18 09:14 5 MLS/MIN Glucose (Glucose 40% Gel) 15-30 GRAMS 15 GRAMS... UD PRN PO 02/07/18 15:00 03/09/18 14:59 Glucose (Glucose Chew Tab) 4-8 Tablets 4 Tabl... UD PRN PO 02/07/18 15:00 03/09/18 14:59 Dextrose (Dextrose 50% 50ML Syringe) 25-50ML OF 50% DW IV FOR... UD PRN IV 02/07/18 15:00 03/09/18 14:59 Glucagon (Glucagon Inj) 1 mg UD PRN SQ 02/07/18 15:00 03/09/18 14:59 Heparin Sodium/ Dextrose 500 ml @ 23 mls/hr [id number] IV 02/07/18 16:15 03/09/18 16:14 02/08/18 14:29 23 MLS/HR Diphenhydramine HCl (Benadryl Inj) 12.5 mg Q8H IV 02/07/18 18:00 03/09/18 17:59 02/08/18 09:14 12.5 MG Insulin Human Regular 250 units/ Sodium Chloride 252.5 ml @ 0 mls/hr Q24H IV 02/07/18 18:45 03/09/18 18:44 02/07/18 19:02 3.5 MLS/HR Insulin Aspart (novoLOG ASPART) SLIDING SCALE PCHS SC 02/07/18 21:00 03/09/18 20:59 Miscellaneous Information (Consult Glycemic Management Pharmacy) 1 ea UD PRN N/A 02/07/18 21:15 03/09/18 21:14 Albuterol (Ventolin Hfa Inhaler) 2 puffs Q2H PRN INH 02/08/18 05:45 03/09/18 14:44 Aspirin (Ecotrin Tab) 81 mg QAM PO 02/08/18 09:00 03/10/18 08:59 02/08/18 09:14 81 MG Physical Exam Vital Signs Past 12 Hours Date Time Temp Pulse Resp B/P (MAP) Pulse Ox O2 Delivery O2 Flow Rate FiO2 02/08/18 15:28 73 18 98 Room Air 02/08/18 14:00 68 14 135/62 (86) 98 Room Air 02/08/18 12:00 Room Air 02/08/18 12:00 36.8 74 14 137/83 (101) 100 Room Air 02/08/18 11:07 70 18 100 Room Air 02/08/18 10:00 59 12 146/66 (92) 100 Room Air 02/08/18 08:00 36.7 66 18 160/63 (95) 98 Room Air 02/08/18 08:00 Room Air 02/08/18 07:42 63 14 99 Room Air 02/08/18 06:00 59 17 142/61 (88) 98 She is alert and oriented x3. Mood affect appear normal. She answered all questions appropriately. She appears to have a jordan face ease and redundancy of the neck tissues HEENT: Sclerae are anicteric. Pupils are equal and reactive to light and accommodation. Extraocular movements were intact. Neuro: Cranial nerves intact Neck: Examination of the submandibular region did not reveal any significant lymphadenopathy. Carotids are palpable bilaterally and free of bruits on auscultation. The thyroid was not enlarged. Lungs: Lungs are clear to auscultation bilaterally. There are no rales wheezes or rhonchi. She has normal respiratory effort without use of accessory muscles. There is normal pulmonary excursion. Cardiac: The rhythm was regular. S1 and S2 were normal. There are no murmurs on examination. The PMI was not markedly displaced on palpation. Abdomen: The abdomen was soft and nontender. Obese Extremities: Patient has bilateral radial pulses that are equal in intensity. There is no evidence cyanosis or clubbing. There was no evidence of significant peripheral edema bilaterally. Skin: There are no rashes noted on examination today. Data Laboratory Results: Last 24 Hours Test 02/07/18 18:16 02/07/18 19:58 02/07/18 20:54 02/07/18 21:01 Bedside Glucose 329 mg/dl 354 mg/dl 302 mg/dl Troponin I 0.130 ng/ml Test 02/07/18 22:01 02/07/18 22:49 02/07/18 22:50 02/07/18 23:56 Bedside Glucose 253 mg/dl 230 mg/dl 192 mg/dl Activated Partial Thromboplast Time 29.4 SECONDS Partial Thromboplastin Ratio 1.1 Test 02/08/18 02:03 02/08/18 03:17 02/08/18 03:59 02/08/18 04:52 Bedside Glucose 159 mg/dl 166 mg/dl 177 mg/dl 153 mg/dl Test 02/08/18 05:38 02/08/18 07:06 02/08/18 09:12 02/08/18 11:06 White Blood Count 13.25 K/uL Red Blood Count 4.29 M/uL Hemoglobin 13.3 g/dL Hematocrit 39.6 % Mean Corpuscular Volume 92.3 fL Mean Corpuscular Hemoglobin 31.0 pg Mean Corpuscular Hemoglobin Concent 33.6 g/dl Platelet Count 217 K/uL Mean Platelet Volume 10.0 fL Neutrophils (%) (Auto) 83.5 % Lymphocytes (%) (Auto) 7.4 % Monocytes (%) (Auto) 8.0 % Eosinophils (%) (Auto) 0.0 % Basophils (%) (Auto) 0.2 % Neutrophils # (Auto) 11.07 K/uL Lymphocytes # (Auto) 0.98 K/uL Monocytes # (Auto) 1.06 K/uL Eosinophils # (Auto) 0.00 K/uL Basophils # (Auto) 0.02 K/uL RDW Standard Deviation 49.1 fL RDW Coefficient of Variation 14.5 % Immature Granulocyte % (Auto) 0.9 % Immature Granulocyte # (Auto) 0.12 K/uL Activated Partial Thromboplast Time 37.5 SECONDS Partial Thromboplastin Ratio 1.4 Sodium Level 144 mmol/L Potassium Level 3.5 mmol/L Chloride Level 107 mmol/L Carbon Dioxide Level 30 mmol/L Anion Gap 7.0 mmol/L Blood Urea Nitrogen 52 mg/dl Creatinine 2.00 mg/dl Est Creatinine Clear Calc Drug Dose 25.6 ml/min Estimated GFR () 27.8 Estimated GFR (Non- 24.0 BUN/Creatinine Ratio 25.9 Random Glucose 149 mg/dl Calcium Level 9.1 mg/dl Phosphorus Level 2.7 mg/dl Magnesium Level 2.6 mg/dl Troponin I 0.083 ng/ml Bedside Glucose 159 mg/dl 146 mg/dl 145 mg/dl Test 02/08/18 12:15 Activated Partial Thromboplast Time 41.6 SECONDS Partial Thromboplastin Ratio 1.6 Imaging: Chest x-ray and neck CT were unrevealing. EKG: Normal sinus rhythm with nonspecific ST and T-wave changes Telemetry reviewed: Normal sinus rhythm Echocardiogram performed today revealed preserved LV systolic function without wall motion abnormalities. Mild aortic insufficiency. Assessment & Plan 1. Elevated cardiac biomarkers: This is likely a type 2 infarct. The overall elevation was quite minimal. She did not endorse symptoms of chest discomfort or significant pain. This is not consistent with an acute coronary syndrome. The time line of her marker elevation coincides with her recent respiratory difficulty. I suspect the 2 are related in this is likely demand ischemia. While she does have a presumed history of coronary artery disease this is not been well established. She has not had any testing in order to establish this diagnosis. I do not think testing is warranted at this point. I would continue supportive care with treatment of her underlying pulmonary process. 2. Atrial fibrillation: Reported in her record. This is also poorly documented. She has been maintained on anticoagulation. Her INR was subtherapeutic at the time of admission. She has been placed on heparin infusion. I do not believe this played a role in her decompensation.
[2018-02-08] MEDS: INSULIN REGULAR 250 UNITS in SODIUM CHLORIDE 0.9% 250ML 250 ML IV SCH (19:05)
[2018-02-08] MEDS: CLONAZEPAM 0.5 MG TAB PO SCH (20:47)
[2018-02-08] MEDS: EZETIMIBE/SIMVASTATIN 10/40 TAB PO SCH (20:48)
[2018-02-08] MEDS: MONTELUKAST SOD 10 MG TAB PO SCH (20:48)
[2018-02-08] MEDS: METOCLOPRAMIDE HCL 10 MG TAB PO SCH (20:48)
[2018-02-08 21:16] LABS: PTT PATIENT 38.3 SECONDS (21.0-31.0)
[2018-02-08] MEDS ORDERED: NURSING VERBAL MED ORDER ONE (21:45)
--- NOTE | 2018-02-08 23:56 | Progress Note ---
Subjective Date of Service: Feb 08, 2018. Subjective Pt evaluation today including: conversation w/ patient, physical exam Patient reports feeling better. Patient still is having some fdifficulty breathing today But it is much milder than when she came in on day of admision.Patient still has cough. Patient tolerated her diet. Problem List Medical Problems: (1) Dyspnea Status: Acute (2) Elevated troponin Status: Acute (3) Renal insufficiency Status: Acute Review of Systems Constitutional: No fever, No chills Eyes: No worsening of vision ENT: + sore throat Respiratory: + cough Cardiac: No chest pain Musculoskeletal: No joint pain Female : No dysuria Neurologic: No memory loss Psychiatric: No depression symptoms Endo: No fatigue Skin: No rash All Other Systems: Reviewed and Negative Medications Current Inpatient Medications Medications (Trade) Dose Ordered Sig/Benito Route Start Time Stop Time Status Last Admin Dose Admin Bumetanide (Bumex Tab) 2 mg BID17 PO 02/07/18 18:00 03/09/18 17:59 02/08/18 16:38 2 MG Calcitriol (Rocaltrol Cap) 0.25 mcg DAILY PO 02/08/18 09:00 03/10/18 08:59 02/08/18 07:55 0.25 MCG Clonazepam (Klonopin Tab) 0.5 mg HS PO 02/07/18 21:00 03/09/18 20:59 02/08/18 20:47 0.5 MG Duloxetine HCl (Cymbalta Cap) 30 mg QAM PO 02/08/18 09:00 03/10/18 08:59 02/08/18 07:55 30 MG Ezetimibe/ Simvastatin (Vytorin 10/40 Tab) 1 tab HS PO 02/07/18 21:00 03/09/18 20:59 02/08/18 20:48 1 TAB Albuterol/ Ipratropium (Duoneb) 3 ml QIDR INH 02/07/18 20:00 03/09/18 19:59 02/08/18 19:42 3 ML Isosorbide Mononitrate (Imdur Ext Rel Tab) 90 mg QAM PO 02/08/18 09:00 03/10/18 08:59 02/08/18 07:56 90 MG Levothyroxine Sodium (Synthroid Tab) 50 mcg DAILYBB PO 02/08/18 06:00 03/10/18 05:59 02/08/18 05:45 50 MCG Metoclopramide HCl (Reglan Tab) 10 mg QPM PO 02/07/18 21:00 03/09/18 20:59 02/08/18 20:48 10 MG Metoprolol Succinate (Toprol Xl Tab) 12.5 mg QAM PO 02/08/18 09:00 03/10/18 08:59 02/08/18 07:56 12.5 MG Montelukast Sodium (Singulair Tab) 10 mg HS PO 02/07/18 21:00 03/09/18 20:59 02/08/18 20:48 10 MG Nitroglycerin (Nitrostat Tab) 0.4 mg UD PRN UT 02/07/18 14:45 03/09/18 14:44 Spironolactone (Aldactone Tab) 50 mg BID17 PO 02/07/18 18:00 03/09/18 17:59 02/08/18 16:38 50 MG Tiotropium [place] (Spiriva Handihaler Inhaler) 1 puff QAM INH 02/08/18 09:00 03/10/18 08:59 02/08/18 07:58 1 PUFF Miscellaneous Information (Order Awaiting Action) 1 ea QS N/A 02/07/18 18:00 03/09/18 17:59 Miscellaneous Information (Order Awaiting Action) 1 ea QS N/A 02/07/18 18:00 03/09/18 17:59 Miscellaneous Information (Order Awaiting Action) 1 ea QS N/A 02/07/18 18:00 03/09/18 17:59 Miscellaneous Information (Order Awaiting Action) 1 ea QS N/A 02/07/18 18:00 03/09/18 17:59 Doxycycline Hyclate 100 mg/ Dextrose 110 ml @ 50 mls/hr Q12H IV 02/07/18 17:00 02/14/18 16:59 02/08/18 16:39 50 MLS/HR Lactobacillus Acidophilus (Lactinex Granules Pack) 1 gm TIDM PO 02/07/18 18:00 03/09/18 17:59 02/08/18 16:38 1 GM Dexamethasone Sodium Phosphate 4 mg/Syringe 1 ml @ 1 mls/min Q8H IV 02/07/18 20:00 02/10/18 12:00 02/08/18 20:47 1 MLS/MIN Pantoprazole Sodium 40 mg/ Syringe 10 ml @ 5 mls/min DAILY IV 02/08/18 09:00 03/10/18 08:59 02/08/18 09:14 5 MLS/MIN Glucose (Glucose 40% Gel) 15-30 GRAMS 15 GRAMS... UD PRN PO 02/07/18 15:00 03/09/18 14:59 Glucose (Glucose Chew Tab) 4-8 Tablets 4 Tabl... UD PRN PO 02/07/18 15:00 03/09/18 14:59 Dextrose (Dextrose 50% 50ML Syringe) 25-50ML OF 50% DW IV FOR... UD PRN IV 02/07/18 15:00 03/09/18 14:59 Glucagon (Glucagon Inj) 1 mg UD PRN SQ 02/07/18 15:00 03/09/18 14:59 Diphenhydramine HCl (Benadryl Inj) 12.5 mg Q8H IV 02/07/18 18:00 03/09/18 17:59 02/08/18 17:47 12.5 MG Insulin Human Regular 250 units/ Sodium Chloride 252.5 ml @ 0 mls/hr Q24H IV 02/07/18 18:45 03/09/18 18:44 02/08/18 19:05 4.7 MLS/HR Insulin Aspart (novoLOG ASPART) SLIDING SCALE HS SC 02/07/18 21:00 03/09/18 20:59 Miscellaneous Information (Consult Glycemic Management Pharmacy) 1 ea UD PRN N/A 02/07/18 21:15 03/09/18 21:14 Albuterol (Ventolin Hfa Inhaler) 2 puffs Q2H PRN INH 02/08/18 05:45 03/09/18 14:44 Aspirin (Ecotrin Tab) 81 mg QAM PO 02/08/18 09:00 03/10/18 08:59 02/08/18 09:14 81 MG Objective Vital Signs Date Time Temp Pulse Resp B/P (MAP) Pulse Ox O2 Delivery O2 Flow Rate FiO2 02/08/18 22:00 69 15 120/63 (82) 100 02/08/18 20:00 36.8 72 21 113/60 (77) 100 02/08/18 20:00 99 Room Air 2.0 02/08/18 19:42 72 20 98 Room Air 02/08/18 18:00 71 13 123/65 (84) 99 Room Air 02/08/18 16:00 36.5 77 16 121/65 (83) 100 Room Air 02/08/18 16:00 Room Air 02/08/18 15:28 73 18 98 Room Air 02/08/18 14:00 68 14 135/62 (86) 98 Room Air 02/08/18 12:00 Room Air 02/08/18 12:00 36.8 74 14 137/83 (101) 100 Room Air 02/08/18 11:07 70 18 100 Room Air 02/08/18 10:00 59 12 146/66 (92) 100 Room Air 02/08/18 08:00 36.7 66 18 160/63 (95) 98 Room Air 02/08/18 08:00 Room Air 02/08/18 07:42 63 14 99 Room Air 02/08/18 06:00 59 17 142/61 (88) 98 02/08/18 04:00 36.9 67 13 163/94 (117) 100 02/08/18 04:00 100 CPAP 28 02/08/18 03:38 69 99 28 02/08/18 03:15 69 14 99 Room Air 02/08/18 02:00 66 16 179/66 (103) 97 02/08/18 00:00 36.9 77 17 149/85 (106) 97 02/07/18 23:59 97 Room Air Physical Exam General Appearance: WD/WN, no apparent distress Eyes: normal inspection ENT: normal ENT inspection Neck: supple, no adenopathy Respiratory/Chest: chest non-tender, no respiratory distress, no accessory muscle use, + decreased breath sounds Cardiovascular: regular rate, rhythm, no edema Abdomen: normal bowel sounds, non tender, soft Extremities: normal range of motion Neurologic/Psychiatric: alert, oriented x 3 Skin: normal color Lymphatic: no adenopathy Laboratory Results Last 24 Hours Test 02/08/18 02:03 02/08/18 03:17 02/08/18 03:59 02/08/18 04:52 Bedside Glucose 159 mg/dl 166 mg/dl 177 mg/dl 153 mg/dl Test 02/08/18 05:38 02/08/18 07:06 02/08/18 09:12 02/08/18 11:06 White Blood Count 13.25 K/uL Red Blood Count 4.29 M/uL Hemoglobin 13.3 g/dL Hematocrit 39.6 % Mean Corpuscular Volume 92.3 fL Mean Corpuscular Hemoglobin 31.0 pg Mean Corpuscular Hemoglobin Concent 33.6 g/dl Platelet Count 217 K/uL Mean Platelet Volume 10.0 fL Neutrophils (%) (Auto) 83.5 % Lymphocytes (%) (Auto) 7.4 % Monocytes (%) (Auto) 8.0 % Eosinophils (%) (Auto) 0.0 % Basophils (%) (Auto) 0.2 % Neutrophils # (Auto) 11.07 K/uL Lymphocytes # (Auto) 0.98 K/uL Monocytes # (Auto) 1.06 K/uL Eosinophils # (Auto) 0.00 K/uL Basophils # (Auto) 0.02 K/uL RDW Standard Deviation 49.1 fL RDW Coefficient of Variation 14.5 % Immature Granulocyte % (Auto) 0.9 % Immature Granulocyte # (Auto) 0.12 K/uL Activated Partial Thromboplast Time 37.5 SECONDS Partial Thromboplastin Ratio 1.4 Sodium Level 144 mmol/L Potassium Level 3.5 mmol/L Chloride Level 107 mmol/L Carbon Dioxide Level 30 mmol/L Anion Gap 7.0 mmol/L Blood Urea Nitrogen 52 mg/dl Creatinine 2.00 mg/dl Est Creatinine Clear Calc Drug Dose 25.6 ml/min Estimated GFR () 27.8 Estimated GFR (Non- 24.0 BUN/Creatinine Ratio 25.9 Random Glucose 149 mg/dl Calcium Level 9.1 mg/dl Phosphorus Level 2.7 mg/dl Magnesium Level 2.6 mg/dl Troponin I 0.083 ng/ml Bedside Glucose 159 mg/dl 146 mg/dl 145 mg/dl Test 02/08/18 12:15 02/08/18 14:59 02/08/18 19:04 02/08/18 20:45 Activated Partial Thromboplast Time 41.6 SECONDS 38.3 SECONDS Partial Thromboplastin Ratio 1.6 1.5 Bedside Glucose 155 mg/dl 151 mg/dl Test 02/08/18 23:13 Bedside Glucose 106 mg/dl Assessment and Plan 72-year-old female with past medical history of obstructive sleep apnea, asthma/ COPD, Atrial fibrillation on Coumadin, chronic kidney disease stage IV, hypertension, hypothyroidism, diabetes mellitus type 2 insulin requiring, dyslipidemia, chronic diastolic congestive heart failure, morbid obesity, epiglottic and subepiglottic tracheal stenosis, 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 Status post flexible followed by rigid bronchoscopy with Xomed to debride this stenotic area done by Dr. Flores 3 days ago, patient tolerated the procedure well had no complaint. Presented with acute shortness of breath. Assessment Acute shortness of breath, possibly laryngeal edema Acute bacterial bronchitis Possible aspiration COPD with mild exacerbation Chronic kidney disease stage IV Atrial fibrillation on Coumadin hypertension Hypothyroidism Diabetes mellitus type 2 Diastolic congestive heart failure without exacerbation Dyslipidemia Morbid obesity Plan Admitted to ICU Patient has clincally mproved, however she still has decreased airway sounds will maintain patient in ICU. Will continue Bronchodilators, DuoNeb nebulizer, will hold on racemic epinephrine for now since her stridor is minimal Decadron 4 mg IV every [address] scan without contrast for the neck and chest, 2 cm nodule on thyroid Doxycycline/Zosyn to cover bronchitis or early aspiration pneumonia on admission D/C zosyn and continue with doxy Probiotic Continue Synthroid Continue insulin, add sliding scale Continue blood pressure medications creatinine midly improved today. Now is 2.0 Hold Coumadin for possible intervention, started on heparin drip.
[2018-02-09] VITALS (27 sets, daily range): BP systolic 123–190; BP diastolic 55–84; PULSE 57–76; TEMP 36.7–36.9; O2SAT 97–100
[2018-02-09] MEDS: DiphenhydrAMINE HCL 50 MG/ML VIAL IV SCH ×3 (02:36→17:42)
[2018-02-09] MEDS: DEXAMETHASONE INJ 4 MG in SYRINGE 0 ML IV SCH (03:57)
[2018-02-09 05:00] LABS: HEMATOCRIT 38.3 % (37-47); HEMOGLOBIN 12.3 g/dL (12.0-16.0); MEAN CELL VOLUME 92.5 fL (80-100); MEAN CORPUSCULAR HEMOGLOBIN 29.7 pg (25-34); MEAN CORPUSCULAR HGB CONC 32.1 g/dl (32-36); MEAN PLATELET VOLUME 9.8 fL (7.4-10.4); PLATELET COUNT 204 K/uL (130-400); RED CELL DISTRIBUTION WIDTH CV 14.7 % (11.5-14.5); WHITE BLOOD COUNT 12.38 K/uL (4.8-10.8)
[2018-02-09 05:24] LABS: CALCIUM 8.5 mg/dl (8.5-10.1); CREATININE 2.04 mg/dl (0.60-1.20); POTASSIUM 3.6 mmol/L (3.5-5.1)
[2018-02-09] MEDS: DOXYCYCLINE IV 100 MG in DEXTROSE 5% 100ML 100 ML IV SCH ×2 (05:28→16:05)
[2018-02-09] MEDS: LEVOTHYROXINE 50 MCG TAB PO SCH (06:28)
[2018-02-09] MEDS: ALBUT/IPRATROP 3MG/0.5MG NEB 3 ML VIAL INH SCH ×4 (07:01→19:27)
[2018-02-09] MEDS: LACTOBACILLUS ACIDOPHILUS 1 GM PACK PO SCH ×3 (07:15→16:03)
--- NOTE | 2018-02-09 07:50 | Critical Care Progress Note ---
Critical Care Progress Note Date of Service Feb 09, 2018. Attending Dr. Anderson Subjective Found patient sitting in a bedside chair, smiling. She says that her voice is greatly improved since initial arrival but not 100% better. Denies any pain including in her chest or neck. Says that she does get short of breath with minimal exertion, but this improves quickly, and she has no shortness of breath at rest. Otherwise she has no acute concerns. Objective General Appearance: Awake, alert & oriented, comfortable in general, NAD. CV: +S1S2 RRR, no murmur. Pulm: Clear to auscultation throughout. No accessory muscle use. Patient has a hoarse voice which she says has very much improved since admission. Mild upper airway respiratory sounds. No notable stridor. Abdomen: +BS, soft, non-tender, non-distended. Extremities: No pedal edema or calf tenderness. Moving all extremities naturally and easily. Neuro: No gross neuro deficits. Assessment & Plan 72-year-old female was admitted on [id number] for shortness of breath and airway watch regarding glottic and subglottic tracheal stenosis. PMH: TAMMIE, asthma, COPD, CKD stage IV, HTN, HLD, hypothyroidism, DM2 on insulin, chronic diastolic CHF, A. fib, morbid obesity, GERD, glottic and subglottic tracheal stenosis. CHEMIST: CAM-ICU negative. No known acute CHEMIST issues. On Cymbalta and clonazepam. Pulm: 26Apr s/p flexible and rigid bronchoscopy with Xomed micro debridement. Reported airway diameter increase from 4-13 mm. Reassuring imaging on admission. Improved shortness of breath. Presently on duoneb QID, dexamethasone 4 mg q8h (planned 3 day course), diphenhydramine q8h, Spiriva daily, Singulair daily. Airway watch ongoing. - Pulmonary onboard, see related notes. They plan on a repeat bronchoscopy today. CVS: Significant CVS PMH as above. No noted chest pain throughout admission. Initial TnI 0.189, trended down to 0.083. EKG was NSR 93, first-degree AV block , minimal ST depression in lateral leads. Echo noted mild concentric LVH, mild AR, and EF of 55-60%. Cardiology consulted, noted type II infarct not consistent with ACS (see full note). On aspirin, Bumex, Vytorin, Imdur, metoprolol, and spironolactone. ID: No known recent infectious issues. Afebrile. WBC down to 12 (with recent prednisone use). Influenza and MRSA nasal swab negative. 29Apr on doxycycline for possible bronchitis vs. aspiration. Endo: PMH DM 2 on insulin and hypothyroidism. On Synthroid. Initial blood sugar elevated, likely partially due to steroids. On insulin drip, thus greatly improved. Monitoring. Renal/Lytes: History CKD stage IV, Cr in September 2017 was 2.34. Presently down to Cr 2.04. Electrolytes okay. UA okay. Monitoring. GI: NPO for now. On Protonix and Reglan. BMI 39. - Has a fixed hiatal hernia on CT chest as well. Heme: Hb 12-13, platelets 204, INR 1.1. No known acute issues. DVT prophy: Held patient's home Coumadin due to possible emergent airway procedure. On heparin drip, but stopped this morning for planned bronchoscopy later this morning. Lines: PIV. Code status: Full code. PT/OT: Deferred. Disposition: Stable for transfer out of ICU. Resident Physician Supervision Note: Dr. Preciado was resident physician during care of patient. I separately evaluated patient and did history and exam. I discussed the case with the resident and generally agree with the findings and plan. Patient continues to improve, would be candidate for downgrade out of ICU today and even possibly discharge home if deemed appropriate by pulmonary or hospitalist medicine. Documented By: Drake Anderson DO Data Medications: Current Inpatient Medications Medications (Trade) Dose Ordered Sig/Benito Route Start Time Stop Time Status Last Admin Dose Admin Bumetanide (Bumex Tab) 2 mg BID17 PO 02/07/18 18:00 03/09/18 17:59 02/08/18 16:38 2 MG Calcitriol (Rocaltrol Cap) 0.25 mcg DAILY PO 02/08/18 09:00 03/10/18 08:59 02/08/18 07:55 0.25 MCG Clonazepam (Klonopin Tab) 0.5 mg HS PO 02/07/18 21:00 03/09/18 20:59 02/08/18 20:47 0.5 MG Duloxetine HCl (Cymbalta Cap) 30 mg QAM PO 02/08/18 09:00 5/29/18 08:59 02/08/18 07:55 30 MG Ezetimibe/ Simvastatin (Vytorin 10/40 Tab) 1 tab HS PO 02/07/18 21:00 03/09/18 20:59 02/08/18 20:48 1 TAB Albuterol/ Ipratropium (Duoneb) 3 ml QIDR INH 02/07/18 20:00 03/09/18 19:59 02/09/18 07:01 3 ML Isosorbide Mononitrate (Imdur Ext Rel Tab) 90 mg QAM PO 02/08/18 09:00 03/10/18 08:59 02/08/18 07:56 90 MG Levothyroxine Sodium (Synthroid Tab) 50 mcg DAILYBB PO 02/08/18 06:00 03/10/18 05:59 02/09/18 06:28 50 MCG Metoclopramide HCl (Reglan Tab) 10 mg QPM PO 02/07/18 21:00 03/09/18 20:59 02/08/18 20:48 10 MG Metoprolol Succinate (Toprol Xl Tab) 12.5 mg QAM PO 02/08/18 09:00 03/10/18 08:59 02/08/18 07:56 12.5 MG Montelukast Sodium (Singulair Tab) 10 mg HS PO 02/07/18 21:00 03/09/18 20:59 02/08/18 20:48 10 MG Nitroglycerin (Nitrostat Tab) 0.4 mg UD PRN UT 02/07/18 14:45 03/09/18 14:44 Spironolactone (Aldactone Tab) 50 mg BID17 PO 02/07/18 18:00 03/09/18 17:59 02/08/18 16:38 50 MG Tiotropium [place] (Spiriva Handihaler Inhaler) 1 puff QAM INH 02/08/18 09:00 03/10/18 08:59 02/08/18 07:58 1 PUFF Miscellaneous Information (Order Awaiting Action) 1 ea QS N/A 02/07/18 18:00 03/09/18 17:59 Miscellaneous Information (Order Awaiting Action) 1 ea QS N/A 02/07/18 18:00 03/09/18 17:59 Miscellaneous Information (Order Awaiting Action) 1 ea QS N/A 02/07/18 18:00 03/09/18 17:59 Miscellaneous Information (Order Awaiting Action) 1 ea QS N/A 02/07/18 18:00 03/09/18 17:59 Doxycycline Hyclate 100 mg/ Dextrose 110 ml @ 50 mls/hr Q12H IV 02/07/18 17:00 02/14/18 16:59 02/09/18 05:28 50 MLS/HR Lactobacillus Acidophilus (Lactinex Granules Pack) 1 gm TIDM PO 02/07/18 18:00 03/09/18 17:59 02/08/18 16:38 1 GM Dexamethasone Sodium Phosphate 4 mg/Syringe 1 ml @ 1 mls/min Q8H IV 02/07/18 20:00 02/10/18 12:00 02/09/18 03:57 1 MLS/MIN Pantoprazole Sodium 40 mg/ Syringe 10 ml @ 5 mls/min DAILY IV 02/08/18 09:00 03/10/18 08:59 02/08/18 09:14 5 MLS/MIN Glucose (Glucose 40% Gel) 15-30 GRAMS 15 GRAMS... UD PRN PO 02/07/18 15:00 03/09/18 14:59 Glucose (Glucose Chew Tab) 4-8 Tablets 4 Tabl... UD PRN PO 02/07/18 15:00 03/09/18 14:59 Dextrose (Dextrose 50% 50ML Syringe) 25-50ML OF 50% DW IV FOR... UD PRN IV 02/07/18 15:00 03/09/18 14:59 Glucagon (Glucagon Inj) 1 mg UD PRN SQ 02/07/18 15:00 03/09/18 14:59 Diphenhydramine HCl (Benadryl Inj) 12.5 mg Q8H IV 02/07/18 18:00 03/09/18 17:59 02/09/18 02:36 12.5 MG Insulin Human Regular 250 units/ Sodium Chloride 252.5 ml @ 0 mls/hr Q24H IV 02/07/18 18:45 03/09/18 18:44 02/08/18 19:05 4.7 MLS/HR Insulin Aspart (novoLOG ASPART) SLIDING SCALE PCHS SC 02/07/18 21:00 03/09/18 20:59 Miscellaneous Information (Consult Glycemic Management Pharmacy) 1 ea UD PRN N/A 02/07/18 21:15 03/09/18 21:14 Albuterol (Ventolin Hfa Inhaler) 2 puffs Q2H PRN INH 02/08/18 05:45 03/09/18 14:44 Aspirin (Ecotrin Tab) 81 mg QAM PO 02/08/18 09:00 03/10/18 08:59 02/08/18 09:14 81 MG Vital Signs: Date Time Temp Pulse Resp B/P (MAP) Pulse Ox O2 Delivery O2 Flow Rate FiO2 02/09/18 07:15 66 20 100 Room Air 02/09/18 06:00 60 14 162/80 (107) 100 02/09/18 04:00 61 17 140/64 (89) 100 02/09/18 04:00 100 Room Air 02/09/18 02:29 60 100 28 02/09/18 02:00 64 14 177/80 (112) 99 02/09/18 00:00 36.9 61 15 123/55 (77) 97 02/08/18 23:59 98 Room Air 02/08/18 22:00 69 15 120/63 (82) 100 02/08/18 20:00 36.8 72 21 113/60 (77) 100 02/08/18 20:00 99 Room Air 02/08/18 19:42 72 20 98 Room Air 02/08/18 18:00 71 13 123/65 (84) 99 Room Air 02/08/18 16:00 36.5 77 16 121/65 (83) 100 Room Air 02/08/18 16:00 Room Air 02/08/18 15:28 73 18 98 Room Air 02/08/18 14:00 68 14 135/62 (86) 98 Room Air 02/08/18 12:00 Room Air 02/08/18 12:00 36.8 74 14 137/83 (101) 100 Room Air 02/08/18 11:07 70 18 100 Room Air 02/08/18 10:00 59 12 146/66 (92) 100 Room Air 02/08/18 08:00 36.7 66 18 160/63 (95) 98 Room Air 02/08/18 08:00 Room Air Laboratory Results: Last 24 Hours Test 02/08/18 09:12 02/08/18 11:06 02/08/18 12:15 02/08/18 14:59 Bedside Glucose 146 mg/dl 145 mg/dl 155 mg/dl Activated Partial Thromboplast Time 41.6 SECONDS Partial Thromboplastin Ratio 1.6 Test 02/08/18 19:04 02/08/18 20:45 02/08/18 23:13 02/09/18 00:04 Bedside Glucose 151 mg/dl 106 mg/dl 112 mg/dl Activated Partial Thromboplast Time 38.3 SECONDS Partial Thromboplastin Ratio 1.5 Test 02/09/18 01:27 02/09/18 02:19 02/09/18 03:04 02/09/18 04:22 Bedside Glucose 105 mg/dl 103 mg/dl 101 mg/dl 122 mg/dl Test 02/09/18 04:41 02/09/18 05:13 02/09/18 06:06 White Blood Count 12.38 K/uL Red Blood Count 4.14 M/uL Hemoglobin 12.3 g/dL Hematocrit 38.3 % Mean Corpuscular Volume 92.5 fL Mean Corpuscular Hemoglobin 29.7 pg Mean Corpuscular Hemoglobin Concent 32.1 g/dl RDW Standard Deviation 50.0 fL RDW Coefficient of Variation 14.7 % Platelet Count 204 K/uL Mean Platelet Volume 9.8 fL Activated Partial Thromboplast Time 24.0 SECONDS Partial Thromboplastin Ratio 0.9 Sodium Level 139 mmol/L Potassium Level 3.6 mmol/L Chloride Level 102 mmol/L Carbon Dioxide Level 30 mmol/L Anion Gap 7.0 mmol/L Blood Urea Nitrogen 55 mg/dl Creatinine 2.04 mg/dl Est Creatinine Clear Calc Drug Dose 25.1 ml/min Estimated GFR () 27.1 Estimated GFR (Non- 23.4 BUN/Creatinine Ratio 27.2 Random Glucose 119 mg/dl Calcium Level 8.5 mg/dl Bedside Glucose 112 mg/dl 136 mg/dl Resident Tracking Resident Involvement: Resident Care Provided Care Provided: Adult Hospital Medicine (ICU)
[2018-02-09] MEDS: INSULIN ASPART 100 UNITS/ML 3 ML PEN SC SCH ×3 (08:00→21:18)
[2018-02-09] MEDS: BUMETANIDE 1 MG TAB PO SCH ×2 (09:00→16:04)
[2018-02-09] MEDS: METOPROLOL SUCC 25MG EXT REL TAB PO SCH (09:00)
[2018-02-09] MEDS: SPIRONOLACTONE 25 MG TAB PO SCH ×2 (09:00→16:04)
[2018-02-09] MEDS ORDERED: FENTANYL CITRATE INJ 50 MCG/1 ML 2 ML VIAL ONE (09:12)
[2018-02-09] MEDS ORDERED: FENTANYL CITRATE INJ 50 MCG/1 ML 2 ML VIAL IV SCH (09:12)
[2018-02-09] MEDS ORDERED: MIDAZOLAM HCL 5 MG/ML 1 ML VIAL IV SCH (09:12)
[2018-02-09] MEDS ORDERED: MIDAZOLAM HCL 1 MG/ML 2ML VIAL ONE (09:13)
--- NOTE | 2018-02-09 09:52 | Bronchoscopy Procedure Note ---
Bronchoscopy Procedure Note Procedure: Bronchoscopy, conscious sedation Consent: Obtained through the patient placed into the chart Pre-procedural diagnosis: tracheal stenosis Post-procedural diagnosis: tracheal stensis, EDAC Start time: 924 End time: 929 Total time: 5 minutes Analgesia: 2% liquid lidocaine: Via nebulizer 4% gel lidocaine: Via right naris 2% liquid lidocaine: Via bronchoscopy Sedation: Versed IV: 2 mg Fentanyl IV: 50 g Procedure: The Olympus video bronchoscope was used for this procedure and passed down through the right naris Right naris/posterior naris/posterior oropharynx: Anatomically within normal limits Glottis: Anatomically within normal limits, small 1mm callus appreciated Vocal cords: Proper abduction and abduction, anatomically within normal limits Subglottis/Trachea: Scar tissue in the sub-glottis and proximal trachea, tracheal rings 1-3 where grossly intact with no malacia Inspiration: upper trachea opens to 12mm Expiration: upper trachea closes to 5mm Distal/Lower 80% of the trachea WNL Fidelia: Anatomically within normal limits Right bronchial tree: Right mainstem bronchus: Anatomically within normal limits Right upper lobe: Anatomically within normal limits Bronchus intermedius: Anatomically within normal limits Right middle lobe: Anatomically within normal limits Right lower lobe: Anatomically within normal limits Findings: No significant findings noted Left bronchial tree: Left mainstem bronchus: Anatomically within normal limits Left upper lobe: Anatomically within normal limits Lingula: Anatomically within normal limits Left lower lobe: Anatomically within normal limits Findings: No significant findings noted EBL: none
[2018-02-09] MEDS: TIOTROPIUM BROMIDE 5 PUFF/90 MCG INH INH SCH (10:53)
[2018-02-09] MEDS: PANTOprazole INJ 40 MG in SYRINGE 0 ML IV SCH (10:53)
[2018-02-09] MEDS ORDERED: INSULIN GLARGINE SOLOSTAR 100 UNITS/ML 3 ML PEN SC ONE ×3 (11:15→21:00)
--- NOTE | 2018-02-09 12:43 | Pharmacy Progress Note ---
Glycemic Control Progress Note Date of Service Feb 09, 2018. Scope Glycemic Pharmacist consulted for glycemic control to write orders per [facility] inpatient glycemic control protocol. Objective Accuchecks BSG (last 24hrs): Test 02/08/18 14:59 02/08/18 19:04 02/08/18 23:13 02/09/18 00:04 Bedside Glucose 155 mg/dl (70-90) 151 mg/dl (70-90) 106 mg/dl (70-90) 112 mg/dl (70-90) Test 02/09/18 01:27 02/09/18 02:19 02/09/18 03:04 02/09/18 04:22 Bedside Glucose 105 mg/dl (70-90) 103 mg/dl (70-90) 101 mg/dl (70-90) 122 mg/dl (70-90) Test 02/09/18 04:41 02/09/18 05:13 02/09/18 06:06 02/09/18 08:34 Random Glucose 119 mg/dl (70-99) Bedside Glucose 112 mg/dl (70-90) 136 mg/dl (70-90) 170 mg/dl (70-90) Recent Pertinent Medications Outpatient Anti-diabetic Regimen: * Basaglar 50 units SC BID * Novolog 5 units SC AC * Januvia 100 mg po qAM * A1c = 9.6% on 12/25/17 The patient is currently receiving: * Insulin drip @ 1.9 units/hr (stable rate since 0) Risk Factors for Insulin Resistance: * Steroids: Dexamethasone 4 mg IV q8h (discontinued today) * Infection: possible PNA vs. COPD exacerbation - on doxycycline * Diet: NPO (per ICU rounds, plan to order diet at dinner - no diet for now as pt is recently post-bronchoscopy) Assessment & Plan ASSESSMENT: 02/08/18 * 72 yo F admitted with SOB. S/p bronch and debridement of tracheal stenosis on 02/05/18 (2 days prior to arrival). * Insulin drip initiated 02/07 per ICU hyperglycemic protocol. Initiated at 5.9 units/hr but has been stable at 4.7 units/hr since 199 * BSG's now well controlled, ranging 145-177 mg/dL since 0 * Despite stable insulin drip rate and BSG's in range, patient is requiring a high insulin drip rate (would provide 113 units/day at current rate) and dexamethasone 4 mg IV q8h continues * Therefore recommend continuation of insulin drip at this time - discussed w Dr. Anderson this AM who agreed. Plan to attempt possible transition to SC basal/bolus early tomorrow 02/09/18 * Stable insulin drip rate at lower than 2.0 units/hr - patient can be transitioned to SC insulin * Will stop IV insulin 6 hours after basal insulin dose, or sooner if drip turns itself off per protocol * Dexamethasone discontinued today - anticipate duration of steroid effects to persist until at least tomorrow 2nd prolonged duration of dexamethasone, specifically. Will therefore initiate Novolog at close to weight-based severe stress estimate. OK to be slightly tighter on CHO ratio as home daily insulin dose is 115 units/day * Patient's home regimen is heavily weighted towards basal insulin (likely covers some prandial needs) - therefore patient's home basal dose will likely be too much as an inpatient and prandial needs better covered with aggressive CHO ratio * Will estimate basal insulin need by using 80% of total daily IV insulin dose ( assuming constant rate of 1.9 units/hr). Normally would aim for 50% (as the other 50% is for CHO coverage), however OK to use 80% as patient has been NPO and this dose is still significantly reduced from home dose PLAN FOR INPATIENT GLYCEMIC CONTROL: * Discontinue IV insulin infusion @ 1800 * Goal Range 110 - 180 mg/dl * In the critical care setting, continuous IV insulin infusion has been shown to be the best method for achieving glycemic targets. * Lantus 35 units SC x1 now (admin @ 1200) * Additional 10 units tonight for BSG 120-180 mg/dL or 20 units for BSG >180 mg /dL * Lantus ongoing qAM based on BSG * 10 units for BSG less than 120 mg/dL * 15 units for BSG 120-180 mg/dL * 30 units for BSG greater than 180 mg/dL * Novolog ACHS with two overnight checks * Goal range 140-180 mg/dL * Correction factor: 15 mg/dL/unit * Carb ratio: 1 unit insulin for every 5 g CHO consumed * Continue to hold home Januvia * Please note that the plan above was derived based on current level of insulin resistance and hospital stress. These recommendations are appropriate for inpatient admission only. Plan of care upon discharge will need to be reassessed to avoid potential outpatient hypo/hyperglycemia. Thank you.
[2018-02-09] MEDS: ISOSORBIDE MONONITRATE 30 MG TABCR PO SCH (12:58)
[2018-02-09] MEDS: DULOXETINE (CYMBALTA) 30 MG CAP PO SCH (12:58)
[2018-02-09] MEDS: CALCITRIOL 0.25 MCG CAP PO SCH (12:59)
[2018-02-09] MEDS: ASPIRIN 81 MG ECTAB PO SCH (12:59)
--- NOTE | 2018-02-09 14:35 | Progress Note ---
Subjective Date of Service: Feb 09, 2018. Subjective PT was seen post bronchoscopy and was doing well but was on Bipap, Pulmonary med has relayed that she has airway compromise due to weakened tracheal wall, concerns are may need tracheostomy Problem List Medical Problems: (1) Dyspnea Status: Acute (2) Elevated troponin Status: Acute (3) Renal insufficiency Status: Acute Review of Systems Constitutional: + weakness, + fatigue Respiratory: + shortness of breath, + dyspnea at rest Cardiac: + edema, No chest pain Abdomen: No pain, No nausea, No vomiting, No diarrhea Musculoskeletal: No joint pain, No muscle pain Neurologic: No memory loss, No paralysis Psychiatric: + depression symptoms, No anhedonism Objective Vital Signs Date Time Temp Pulse Resp B/P (MAP) Pulse Ox O2 Delivery O2 Flow Rate FiO2 02/09/18 07:15 66 20 100 Room Air 02/09/18 06:00 60 14 162/80 (107) 100 02/09/18 04:00 61 17 140/64 (89) 100 02/09/18 04:00 100 Room Air 02/09/18 02:29 60 100 28 02/09/18 02:00 64 14 177/80 (112) 99 02/09/18 00:00 36.9 61 15 123/55 (77) 97 02/08/18 23:59 98 Room Air 02/08/18 22:00 69 15 120/63 (82) 100 02/08/18 20:00 36.8 72 21 113/60 (77) 100 02/08/18 20:00 99 Room Air 02/08/18 19:42 72 20 98 Room Air 02/08/18 18:00 71 13 123/65 (84) 99 Room Air 02/08/18 16:00 36.5 77 16 121/65 (83) 100 Room Air 02/08/18 16:00 Room Air 02/08/18 15:28 73 18 98 Room Air 02/08/18 14:00 68 14 135/62 (86) 98 Room Air 02/08/18 12:00 Room Air 02/08/18 12:00 36.8 74 14 137/83 (101) 100 Room Air 02/08/18 11:07 70 18 100 Room Air 02/08/18 10:00 59 12 146/66 (92) 100 Room Air 02/08/18 08:00 36.7 66 18 160/63 (95) 98 Room Air 02/08/18 08:00 Room Air Physical Exam General Appearance: WD/WN, + mild distress, + obese Eyes: normal inspection, PERRL Neck: supple, no JVD Respiratory/Chest: no respiratory distress (but is wearing BiPap), + decreased breath sounds Cardiovascular: regular rate, rhythm, no murmur Abdomen: normal bowel sounds, non tender, soft Extremities: no calf tenderness, + pedal edema Neurologic/Psychiatric: alert, oriented x 3 Laboratory Results Last 24 Hours Test 02/08/18 09:12 02/08/18 11:06 02/08/18 12:15 02/08/18 14:59 Bedside Glucose 146 mg/dl 145 mg/dl 155 mg/dl Activated Partial Thromboplast Time 41.6 SECONDS Partial Thromboplastin Ratio 1.6 Test 02/08/18 19:04 02/08/18 20:45 02/08/18 23:13 02/09/18 00:04 Bedside Glucose 151 mg/dl 106 mg/dl 112 mg/dl Activated Partial Thromboplast Time 38.3 SECONDS Partial Thromboplastin Ratio 1.5 Test 02/09/18 01:27 02/09/18 02:19 02/09/18 03:04 02/09/18 04:22 Bedside Glucose 105 mg/dl 103 mg/dl 101 mg/dl 122 mg/dl Test 02/09/18 04:41 02/09/18 05:13 02/09/18 06:06 White Blood Count 12.38 K/uL Red Blood Count 4.14 M/uL Hemoglobin 12.3 g/dL Hematocrit 38.3 % Mean Corpuscular Volume 92.5 fL Mean Corpuscular Hemoglobin 29.7 pg Mean Corpuscular Hemoglobin Concent 32.1 g/dl RDW Standard Deviation 50.0 fL RDW Coefficient of Variation 14.7 % Platelet Count 204 K/uL Mean Platelet Volume 9.8 fL Activated Partial Thromboplast Time 24.0 SECONDS Partial Thromboplastin Ratio 0.9 Sodium Level 139 mmol/L Potassium Level 3.6 mmol/L Chloride Level 102 mmol/L Carbon Dioxide Level 30 mmol/L Anion Gap 7.0 mmol/L Blood Urea Nitrogen 55 mg/dl Creatinine 2.04 mg/dl Est Creatinine Clear Calc Drug Dose 25.1 ml/min Estimated GFR () 27.1 Estimated GFR (Non- 23.4 BUN/Creatinine Ratio 27.2 Random Glucose 119 mg/dl Calcium Level 8.5 mg/dl Bedside Glucose 112 mg/dl 136 mg/dl Assessment and Plan 72-year-old female with past medical history of obstructive sleep apnea, asthma/ COPD, Atrial fibrillation on Coumadin, chronic kidney disease stage IV, hypertension, hypothyroidism, diabetes mellitus type 2 insulin requiring, dyslipidemia, chronic diastolic congestive heart failure, morbid obesity, epiglottic and subepiglottic tracheal stenosis, 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 Status post flexible followed by rigid bronchoscopy with Xomed to debride this stenotic area done by Dr. Flores 3 days ago, patient tolerated the procedure well had no complaint. Presented with acute shortness of breath. Acute shortness of breath, likely from extrathoracic tracheal intermittent obstruction, Bronchodilators, DuoNeb nebulizer, stop steroids and will hold on racemic epinephrine for now since her stridor is minimal Treat for acute bacterial bronchitis Possible aspiration, Doxycycline CT scan without contrast for the neck and chest, 2 cm nodule on thyroid Chronic kidney disease stage IV, [facility] for dosing of meds and limits use of lovenox Atrial fibrillation on Coumadin, Hold Coumadin for possible intervention, started on heparin drip, now will downgrade to SC heparin as bridge not required to restart Coumadin for afib. Diabetes mellitus type 2, insulin, had required insulin gtt, but now with heparin gtt off ( mixed in D5) and steroids stopped will transition to sliding scale Diastolic congestive heart failure without exacerbation Morbid obesity, BMI of 38 impacts on her breathing and chest wall mechanics
--- NOTE | 2018-02-09 15:05 | PULMONARY PROGRESS NOTE ---
DATE: 02/09/2018 I was asked to see patient by Dr. Flores for a second opinion concerning the possible need for tracheostomy tube placement. The patient underwent bronchoscopy this morning under conscious sedation because of concerns of persistent tracheal stenosis. I refer you to Dr. Flores's notation. The procedure was well tolerated. There appeared to be scar tissue in the subglottic area and proximal trachea involving tracheal rings 1-3 which were grossly intact and it previously been instrumented with no obvious tracheomalacia or perforation. However, endoscopic dynamic airway collapse was seen during expiration at that subglottic region with the remainder of the trachea patent. The patient states that she feels more air hunger today than she has in a while and tolerated the original procedure on 02/05/2018 without difficulty. The trachea was stenosed down to 4 mm at approximately 2 cm below the level of the vocal cords at that time. The area was dilated with a tracheoscope and 13.2 Dumon trachea-scope was used with Xomed microdebrider was used to removed excessive scar tissue with good clinical result according to Dr. Flores's notation. The patient has a past history of obstructive sleep apnea, asthma, and COPD along with stage IV chronic renal disease. She is morbidly obese and has a history of chronic diastolic CHF. Three days after the procedure, she became acutely dyspneic at home and had to be readmitted and was seen by Dr. Ruano and then subsequently Dr. Flores. Aerographer has seen the patient along with Dr. Arthur Elam from cardiology. The patient has been maintained on anticoagulant therapy for chronic atrial fibrillation. PHYSICAL EXAMINATION: GENERAL: The patient is a well-developed, obese white female, appearing pale but in no obvious distress at rest. VITAL SIGNS: Temperature 36.8, pulse 63 and regular, respiratory rate 17, blood pressure 158/71, O2 sat 100% on 28% FiO2 supplementation/patient, currently not on CPAP. SKIN: Without lesion. HEENT: Atraumatic, normocephalic, PERRLA, EOMI. Conjunctivae pale. Sclerae nonicteric. Fundi poorly visualized. NECK: Neck veins are not distended at 45 degrees. No obvious adenopathy in the supra or infraclavicular areas. LUNGS: Distant P and A. No audible wheezes. I do not appreciate either by auscultation or palpation inspiratory stridor. The patient is not using the accessory muscles of respiration. Lung sounds distant P and A but no audible wheezing. CARDIAC: Regular rate, rhythm. I do not appreciate a gallop, no S3 audible. ABDOMEN: Soft, scaphoid. No evidence of hepatosplenomegaly. She is obese. EXTREMITIES: Trace pedal edema. No clubbing. Peripheral cyanosis. NEUROLOGIC: Intact. No lateralizing signs. LABORATORY DATA: Chest CT 2 days ago shows the lungs are clear. Minimal basilar atelectasis; fixed hiatal hernia. No overt signs of failure or aspiration. The CT scan of the soft tissues of the neck showed no acute process. The areas of the glottic and subglottic areas appear unremarkable. White count is 12,000, H and H 12 and 38. BUN 55, creatinine 2.04. ABGs on 1 L on admission pH 7.46, pCO2 of 45, pO2 of 127. OVERALL ASSESSMENT: This is a 72-year-old with [id number] chronic obstructive pulmonary disease/asthma, obstructive sleep apnea, diastolic heart failure, and multiple comorbid disease processes, underwent tracheal dilatation with debridement on 02/05/2018; readmitted on 02/07/2018 with "air hunger." The patient underwent bronchoscopy today with what appeared to be EDAC involving the subglottic posterior membrane of the trachea with essentially normal distal trachea. I see no signs of extrathoracic obstruction clinically and although CPAP or BiPAP therapy often helps for endoscopic dynamic airway collapse, it obviously can not be used continually. The question is the patient a candidate for a tracheostomy tube placement. In the absence of stridor clinically and by exam, I would be somewhat loathe to consider that possibility. I have reviewed the photographs taken today by Dr. Flores during bronchoscopic intervention. It is difficult for me to determine what involves purulent tracheal secretions versus the residua from the most recent debridement procedure. Will discuss further with Dr. Flores and I do not believe a decision needs to be made emergently today but suspect repeat bronchoscopic evaluation within 24-48 hours may be helpful to see if this would represent a transient phenomenon or a more permanent one. Will discuss further with Dr. Flores. [facility]OCKER HOSPITALTomeka
[2018-02-09] MEDS ORDERED: INSULIN ASPART 100 UNITS/ML 3 ML PEN SC ONE (16:00)
[2018-02-09] MEDS ORDERED: NURSING VERBAL MED ORDER ONE (16:45)
[2018-02-09] MEDS ORDERED: DC IV INSULIN INFUSION ONE (18:00)
[2018-02-09] MEDS: METOCLOPRAMIDE HCL 10 MG TAB PO SCH (21:13)
[2018-02-09] MEDS: MONTELUKAST SOD 10 MG TAB PO SCH (21:13)
[2018-02-09] MEDS: EZETIMIBE/SIMVASTATIN 10/40 TAB PO SCH (21:13)
[2018-02-09] MEDS: HEPARIN SOD 5000 UNIT/0.5 ML CARP SC SCH (21:16)
[2018-02-09] MEDS: CLONAZEPAM 0.5 MG TAB PO SCH (21:16)
[2018-02-10] VITALS (16 sets, daily range): BP systolic 131–156; BP diastolic 63–80; PULSE 58–82; TEMP 36.6–36.8; O2SAT 92–100
[2018-02-10] MEDS: INSULIN ASPART 100 UNITS/ML 3 ML PEN SC SCH ×6 (00:09→20:44)
[2018-02-10] MEDS: DiphenhydrAMINE HCL 50 MG/ML VIAL IV SCH ×3 (02:04→17:18)
[2018-02-10 05:03] LABS: BASO % 0.1 %; BASO ABS # 0.01 K/uL (0-0.2); EOS % 1.4 %; EOS ABS # 0.13 K/uL (0-0.5); IG# 0.18 K/uL (0.00-0.02); LYMPH ABS # 1.86 K/uL (1.2-3.4); MEAN CELL VOLUME 91.8 fL (80-100); MEAN CORPUSCULAR HEMOGLOBIN 30.6 pg (25-34); MEAN CORPUSCULAR HGB CONC 33.3 g/dl (32-36); MEAN PLATELET VOLUME 9.7 fL (7.4-10.4); MONO % 6.7 %; MONO ABS # 0.62 K/uL (0.11-0.59); NEUT % 69.9 %; NEUT ABS # 6.49 K/uL (1.4-6.5); PLATELET COUNT 184 K/uL (130-400); RED CELL DISTRIBUTION WIDTH CV 14.5 % (11.5-14.5); WHITE BLOOD COUNT 9.29 K/uL (4.8-10.8)
[2018-02-10 05:10] LABS: PTT PATIENT 24.3 SECONDS (21.0-31.0)
[2018-02-10 05:22] LABS: ALBUMIN 2.9 gm/dl (3.4-5.0); CALCIUM 8.2 mg/dl (8.5-10.1); CREATININE 1.96 mg/dl (0.60-1.20); POTASSIUM 3.3 mmol/L (3.5-5.1)
[2018-02-10] MEDS: DOXYCYCLINE IV 100 MG in DEXTROSE 5% 100ML 100 ML IV SCH (05:51)
[2018-02-10] MEDS: LEVOTHYROXINE 50 MCG TAB PO SCH (05:51)
[2018-02-10 05:52] LABS: TOTAL PROTEIN 6.5 gm/dl (6.4-8.2)
[2018-02-10] MEDS ORDERED: POTASSIUM CHLORIDE 20 MEQ TABCR PO STA (05:52)
[2018-02-10 05:53] LABS: PHOSPHORUS 3.8 mg/dl (2.5-4.9)
[2018-02-10] MEDS: ALBUT/IPRATROP 3MG/0.5MG NEB 3 ML VIAL INH SCH ×4 (07:15→18:56)
[2018-02-10] MEDS: BUMETANIDE 1 MG TAB PO SCH ×2 (08:42→17:15)
[2018-02-10] MEDS: DULOXETINE (CYMBALTA) 30 MG CAP PO SCH (08:42)
[2018-02-10] MEDS: ISOSORBIDE MONONITRATE 30 MG TABCR PO SCH (08:42)
[2018-02-10] MEDS: METOPROLOL SUCC 25MG EXT REL TAB PO SCH (08:43)
[2018-02-10] MEDS: ASPIRIN 81 MG ECTAB PO SCH (08:44)
[2018-02-10] MEDS: CALCITRIOL 0.25 MCG CAP PO SCH (08:44)
[2018-02-10] MEDS: LACTOBACILLUS ACIDOPHILUS 1 GM PACK PO SCH ×4 (08:44→17:15)
[2018-02-10] MEDS ORDERED: CARBOHYDRATES FOR HYPOGLYCEMIA PO PRN (08:45)
[2018-02-10] MEDS: TIOTROPIUM BROMIDE 5 PUFF/90 MCG INH INH SCH (08:45)
[2018-02-10] MEDS: SPIRONOLACTONE 25 MG TAB PO SCH ×2 (08:45→17:15)
[2018-02-10] MEDS: HEPARIN SOD 5000 UNIT/0.5 ML CARP SC SCH ×2 (08:47→20:45)
[2018-02-10] MEDS: INSULIN GLARGINE SOLOSTAR 100 UNITS/ML 3 ML PEN SC SCH ×2 (08:49→20:45)
[2018-02-10] MEDS: PANTOprazole INJ 40 MG in SYRINGE 0 ML IV SCH (08:52)
[2018-02-10] MEDS ORDERED: INSULIN GLARGINE SOLOSTAR 100 UNITS/ML 3 ML PEN SC SCH (09:00)
[2018-02-10] MEDS: SENNA 8.6 MG TAB PO PRN (09:01)
--- NOTE | 2018-02-10 10:25 | Clinical Documentation Query ---
CLINICAL DOCUMENTATION QUERY Dr. SILVER, In your clinical opinion is this patient being managed for: ( ) Type II NH in the setting of demand ischemia ( xx) Not Agree, demand ischemia not type II mi ( ) Other explanation of clinical findings (Please Explain. If no explanation given, this would be considered a no response.) ( ) Unable to determine ( ) Need to Discuss (Please call CDS via extension or qliq. If no interaction occurs this is considered a no response. The medical record reflects the following clinical findings, treatment, and risk factors. Clinical Indicators: Spike Machine Feeder consult suggests "some aspect of demand ischemia" regarding elevated trops (0.189/0.130/0.083). Cardiology consult indicates "elevated cardiac biomarkers: This is likely a type II infarct. Suspect related to demand ischemia. " Treatment: ICU monitoring, IV doxycycline, IV zosyn, cardiology/drum drier and pulmonary consults, bronchodilators, duonebs, O2 support, ECHO, bronch, Risk Factors: tracheal obstruction, acute bronchitis, chronic diastolic CHF, COPD, asthma, CKD stage IV, HTN Please clarify and document your clinical opinion in the progress notes and discharge summary. Terms such as "probable", "suspected", "likely", "questionable", "possible", or "still to be ruled out" are acceptable. IF IN AGREEMENT, YOU MUST DOCUMENT ABOVE DIAGNOSTIC STATEMENT IN DAILY PROGRESS NOTES AND DISCHARGE SUMMARY. This document is not part of the patient's record. Thank You, Elizabeth Ruiz, SID [id number]
--- NOTE | 2018-02-10 10:37 | Critical Care Progress Note ---
Critical Care Progress Note Date of Service February 10, 2018. Attending Dr. Anderson Subjective Found patient sitting the bedside chair, smiling and eating breakfast, saying that overall she feels quite well. She does note continued mild baseline shortness of breath at rest that is worsened with any exertion. Continues to deny any chest pain. Overall says that she feels about the same as yesterday but much improved since admission. Denies any acute concerns. Objective General Appearance: Awake, alert & oriented, smiling and eating breakfast, comfortable in general, NAD. CV: +S1S2 borderline regular bradycardia, no murmur. Pulm: Clear to auscultation throughout. No accessory muscle use. Hoarse voice is virtually resolved. No stridor. Abdomen: +BS, soft, non-tender, non-distended. Extremities: No pedal edema or calf tenderness. Moving all extremities naturally and easily. Neuro: No gross neuro deficits. Assessment & Plan 72-year-old female was admitted on [id number] for shortness of breath and airway watch regarding glottic and subglottic tracheal stenosis. PMH: TAMMIE, asthma, COPD, CKD stage IV, HTN, HLD, hypothyroidism, DM2 on insulin, chronic diastolic CHF, A. fib, morbid obesity, GERD, glottic and subglottic tracheal stenosis. PLASTIC PARTS FABRICATOR: CAM-ICU negative. No known acute PLASTIC PARTS FABRICATOR issues. On Cymbalta and clonazepam. Pulm: 26Apr s/p flexible and rigid bronchoscopy with Xomed micro debridement. Reported airway diameter increase from 4-13 mm. Reassuring imaging on admission. Improved SOB. Bronchoscopy yesterday noted excessive dynamic airway collapse (see full report). Not eager to perform tracheostomy. See pulmonology notes. - Completed course of dexamethasone q8h. Presently on duoneb QID, diphenhydramine q8h, Spiriva daily, Singulair daily. Airway watch ongoing. Patient will continue to benefit from CPAP. CVS: Significant CVS PMH as above. Denies chest pain throughout admission. See EKG and echo reports. Cardiology on board. Minimal initial TnI elevation not consistent with ACS. On aspirin, Bumex, Vytorin, Imdur, metoprolol, and spironolactone. ID: Afebrile. WBC 9. 29Apr on doxycycline for possible bronchitis vs. aspiration. Endo: PMH DM 2 on insulin and hypothyroidism. On Synthroid. On Lantus insulin sliding scale. Monitoring. Renal/Lytes: History CKD stage IV, Cr in September 2017 was 2.34. Presently down to Cr 1.96. Mild hypokalemia, replacing. GI: Past swallow evaluation. DM 2 diet. BMI 39. On home Protonix and Reglan. Starting MiraLAX and senna here. - Has a fixed hiatal hernia on CT chest as well. Heme: Hb 12-13, platelets 184, INR 1.1. No known acute issues. DVT prophy: Heparin BID. Was previously on Coumadin at home. Lines: PIV. Code status: Full code. PT/OT: Ordered. Disposition: Stable for transfer out of ICU. Resident Physician Supervision Note: Dr. Preciado was resident physician during care of patient. I separately evaluated patient and did history and exam. I discussed the case with the resident and generally agree with the findings and plan. Patient with excessive dynamic airway collapse and tracheomalacia. Avoid coughing and forced exhalation maneuvers, if she requires this facilitation with CPAP as the patient has already tolerated CPAP therapy in the past would be recommended. Patient currently stable ready for downgrade out of ICU. Documented By: Drake Andesron DO Data Medications: Current Inpatient Medications Medications (Trade) Dose Ordered Sig/Benito Route Start Time Stop Time Status Last Admin Dose Admin Bumetanide (Bumex Tab) 2 mg BID17 PO 02/07/18 18:00 03/09/18 17:59 02/10/18 08:42 2 MG Calcitriol (Rocaltrol Cap) 0.25 mcg DAILY PO 02/08/18 09:00 03/10/18 08:59 02/10/18 08:44 0.25 MCG Clonazepam (Klonopin Tab) 0.5 mg HS PO 02/07/18 21:00 03/09/18 20:59 02/09/18 21:16 0.5 MG Duloxetine HCl (Cymbalta Cap) 30 mg QAM PO 02/08/18 09:00 03/10/18 08:59 02/10/18 08:42 30 MG Ezetimibe/ Simvastatin (Vytorin 10/40 Tab) 1 tab HS PO 02/07/18 21:00 03/09/18 20:59 02/09/18 21:13 1 TAB Albuterol/ Ipratropium (Duoneb) 3 ml QIDR INH 02/07/18 20:00 03/09/18 19:59 02/10/18 07:15 3 ML Isosorbide Mononitrate (Imdur Ext Rel Tab) 90 mg QAM PO 02/08/18 09:00 03/10/18 08:59 02/10/18 08:42 90 MG Levothyroxine Sodium (Synthroid Tab) 50 mcg DAILYBB PO 02/08/18 06:00 03/10/18 05:59 02/10/18 05:51 50 MCG Metoclopramide HCl (Reglan Tab) 10 mg QPM PO 02/07/18 21:00 03/09/18 20:59 02/09/18 21:13 10 MG Metoprolol Succinate (Toprol Xl Tab) 12.5 mg QAM PO 02/08/18 09:00 03/10/18 08:59 02/10/18 08:43 12.5 MG Montelukast Sodium (Singulair Tab) 10 mg HS PO 02/07/18 21:00 03/09/18 20:59 02/09/18 21:13 10 MG Nitroglycerin (Nitrostat Tab) 0.4 mg UD PRN UT 02/07/18 14:45 03/09/18 14:44 Spironolactone (Aldactone Tab) 50 mg BID17 PO 02/07/18 18:00 03/09/18 17:59 02/10/18 08:45 50 MG Tiotropium [place] (Spiriva Handihaler Inhaler) 1 puff QAM INH 02/08/18 09:00 03/10/18 08:59 02/10/18 08:45 1 PUFF Miscellaneous Information (Order Awaiting Action) 1 ea QS N/A 02/07/18 18:00 03/09/18 17:59 Miscellaneous Information (Order Awaiting Action) 1 ea QS N/A 02/07/18 18:00 03/09/18 17:59 Miscellaneous Information (Order Awaiting Action) 1 ea QS N/A 02/07/18 18:00 03/09/18 17:59 Miscellaneous Information (Order Awaiting Action) 1 ea QS N/A 02/07/18 18:00 03/09/18 17:59 Lactobacillus Acidophilus (Lactinex Granules Pack) 1 gm TIDM PO 02/07/18 18:00 03/09/18 17:59 02/10/18 08:44 1 GM Pantoprazole Sodium 40 mg/ Syringe 10 ml @ 5 mls/min DAILY IV 02/08/18 09:00 03/10/18 08:59 02/10/18 08:52 5 MLS/MIN Glucose (Glucose 40% Gel) 15-30 GRAMS 15 GRAMS... UD PRN PO 02/07/18 15:00 03/09/18 14:59 Glucose (Glucose Chew Tab) 4-8 Tablets 4 Tabl... UD PRN PO 02/07/18 15:00 03/09/18 14:59 Dextrose (Dextrose 50% 50ML Syringe) 25-50ML OF 50% DW IV FOR... UD PRN IV 02/07/18 15:00 03/09/18 14:59 Glucagon (Glucagon Inj) 1 mg UD PRN SQ 02/07/18 15:00 03/09/18 14:59 Diphenhydramine HCl (Benadryl Inj) 12.5 mg Q8H IV 02/07/18 18:00 03/09/18 17:59 02/10/18 08:52 12.5 MG Miscellaneous Information (Consult Glycemic Management Pharmacy) 1 ea UD PRN N/A 02/07/18 21:15 03/09/18 21:14 Albuterol (Ventolin Hfa Inhaler) 2 puffs Q2H PRN INH 02/08/18 05:45 03/09/18 14:44 Aspirin (Ecotrin Tab) 81 mg QAM PO 02/08/18 09:00 03/10/18 08:59 02/10/18 08:44 81 MG Heparin Sodium (Porcine) (Heparin Sq 5000 Unit/0.5ml) 5,000 unit BID SC 02/09/18 21:00 03/11/18 20:59 02/10/18 08:47 5,000 UNIT Insulin Aspart (novoLOG ASPART) SLIDING SCALE ACHS SC 02/09/18 21:00 03/11/18 20:59 02/10/18 08:48 8 UNITS Insulin Glargine (Lantus Solostar Pen) 30 units BID SC 02/10/18 09:00 03/12/18 08:59 02/10/18 08:49 30 UNITS Polyethylene (Miralax Powder Packet) 17 gm DAILY PRN PO 02/10/18 08:30 03/12/18 08:29 Senna (Senokot Tab) 17.2 mg QAM PRN PO 02/10/18 08:30 03/12/18 08:29 02/10/18 09:01 17.2 MG Carbohydrates (Carbohydrates For Hypoglycemia) 15-30 GRAMS 15 grams if BSG 54-69... UD PRN PO 02/10/18 08:45 03/12/18 08:44 Vital Signs: Date Time Temp Pulse Resp B/P (MAP) Pulse Ox O2 Delivery O2 Flow Rate FiO2 02/10/18 10:09 36.6 71 24 100 02/10/18 08:00 100 Room Air 02/10/18 08:00 36.6 71 24 146/67 (93) 100 Room Air 02/10/18 07:19 79 20 100 Room Air 02/10/18 07:18 79 100 28 02/10/18 06:00 58 17 145/68 (93) 100 CPAP 02/10/18 04:00 CPAP 02/10/18 04:00 36.7 59 23 156/67 (96) 100 CPAP 02/10/18 02:24 71 100 28 02/10/18 02:00 58 18 137/66 (89) 100 CPAP 02/10/18 00:01 36.8 59 19 150/63 (92) 100 CPAP 02/09/18 23:59 CPAP 02/09/18 22:00 67 24 130/65 (86) 99 Room Air 02/09/18 20:00 Room Air 02/09/18 20:00 36.7 65 18 156/71 (99) 99 Room Air 02/09/18 19:27 68 20 100 Room Air 02/09/18 18:00 71 16 139/66 (90) 100 Room Air 02/09/18 16:00 100 Room Air 02/09/18 16:00 36.7 76 18 132/64 (86) 100 Room Air 02/09/18 15:39 68 100 28 02/09/18 15:36 65 20 100 BiPAP/CPAP 28 02/09/18 14:00 63 17 158/71 (100) 100 CPAP 28 02/09/18 12:00 36.8 59 20 167/70 (102) 100 CPAP 28 02/09/18 12:00 100 CPAP 28 02/09/18 11:17 57 20 100 BiPAP/CPAP 28 02/09/18 10:27 Oxymask Laboratory Results: Last 24 Hours Test 02/09/18 10:47 02/09/18 11:50 02/09/18 12:55 02/09/18 13:52 Bedside Glucose 194 mg/dl 174 mg/dl 183 mg/dl 152 mg/dl Test 02/09/18 15:00 02/09/18 15:59 02/09/18 21:05 02/10/18 00:05 Bedside Glucose 140 mg/dl 150 mg/dl 182 mg/dl 215 mg/dl Test 02/10/18 04:10 02/10/18 04:46 Bedside Glucose 152 mg/dl White Blood Count 9.29 K/uL Red Blood Count 3.92 M/uL Hemoglobin 12.0 g/dL Hematocrit 36.0 % Mean Corpuscular Volume 91.8 fL Mean Corpuscular Hemoglobin 30.6 pg Mean Corpuscular Hemoglobin Concent 33.3 g/dl Platelet Count 184 K/uL Mean Platelet Volume 9.7 fL Neutrophils (%) (Auto) 69.9 % Lymphocytes (%) (Auto) 20.0 % Monocytes (%) (Auto) 6.7 % Eosinophils (%) (Auto) 1.4 % Basophils (%) (Auto) 0.1 % Neutrophils # (Auto) 6.49 K/uL Lymphocytes # (Auto) 1.86 K/uL Monocytes # (Auto) 0.62 K/uL Eosinophils # (Auto) 0.13 K/uL Basophils # (Auto) 0.01 K/uL RDW Standard Deviation 49.0 fL RDW Coefficient of Variation 14.5 % Immature Granulocyte % (Auto) 1.9 % Immature Granulocyte # (Auto) 0.18 K/uL Activated Partial Thromboplast Time 24.3 SECONDS Partial Thromboplastin Ratio 0.9 Sodium Level 138 mmol/L Potassium Level 3.3 mmol/L Chloride Level 102 mmol/L Carbon Dioxide Level 30 mmol/L Anion Gap 6.0 mmol/L Blood Urea Nitrogen 59 mg/dl Creatinine 1.96 mg/dl Est Creatinine Clear Calc Drug Dose 26.2 ml/min Estimated GFR () 28.5 Estimated GFR (Non- 24.6 BUN/Creatinine Ratio 30.4 Random Glucose 163 mg/dl Calcium Level 8.2 mg/dl Phosphorus Level 3.8 mg/dl Magnesium Level 2.4 mg/dl Total Bilirubin 0.5 mg/dl Direct Bilirubin 0.2 mg/dl Aspartate Amino Transf (AST/SGOT) 29 U/L Alanine Aminotransferase (ALT/SGPT) 47 U/L Alkaline Phosphatase 25 U/L Total Protein 6.5 gm/dl Albumin 2.9 gm/dl Resident Tracking Resident Involvement: Resident Care Provided Care Provided: Adult Hospital Medicine (ICU)
--- NOTE | 2018-02-10 12:09 | PULMONARY PROGRESS NOTE ---
DATE: 02/10/2018 SUBJECTIVE: The patient feels better today and claims to be "less air hungry." She is minimally coughing and states that at times when she is postprandial, she tends to cough. She denies any knowledge of dysphagia. She slept well with CPAP as she does at home and uses the CPAP during the day p.r.n. OBJECTIVE: CURRENT VITAL SIGNS: Temperature 36.6, pulse 73 and regular, respiratory rate 20, blood pressure 146/67, O2 sat 92% on room air. SKIN: Warm and dry. HEENT: Atraumatic, normocephalic, PERRLA, EOMI. Conjunctivae pink. Sclerae nonicteric. Fundi poorly visualized. NECK: Neck veins not distended at 45 degrees. No adenopathy in the supra or infraclavicular areas. LUNGS: Distant P and A. No audible wheezes. No obvious evidence for stridor. CARDIAC: Regular rhythm. No murmurs or gallops. No S3. ABDOMEN: Soft, protuberant. EXTREMITIES: No significant pedal edema, clubbing, or cyanosis. NEUROLOGICAL: Intact. No lateralizing signs. LABORATORY DATA: White count 9200, H and H 12 and 36, potassium 3.3. OVERALL ASSESSMENT: A 72-year-old status post proximal tracheal debridement with tracheomalacia and extrathoracic obstruction, seems to be doing reasonably well with a CPAP protocol. I spoke with Dr. Flores this morning. He has spoken to some colleagues about patient's clinical presentation. Steroids are to be avoided which certainly can render the tracheal cartilages as they insert into the posterior membrane more incompetent. In addition, patient may stabilize and show improvement over the next several weeks and repeat bronchoscopic evaluation at that time would be indicated. Currently, the patient exhibits no signs of extrathoracic obstruction and would gently mobilize her and see how she does clinically. The patient may require elective tracheostomy down the road, I am hoping that would not be necessary. The patient will need to be reevaluated by Dr. Flores in several weeks as an outpatient. Due to the elevated troponin level, we will check another EKG to make sure there are no ischemic changes.
--- NOTE | 2018-02-10 13:13 | Progress Note ---
Subjective Date of Service: February 10, 2018. Subjective this pt is feeling better and has been tolerant of bipap overnight. It is noted that the pt did have a small level of troponin elevation felt to be secondary to supply demand mismatch, there is not consistent information for ACS Problem List Medical Problems: (1) Dyspnea Status: Acute (2) Elevated troponin Status: Acute (3) Renal insufficiency Status: Acute Review of Systems Constitutional: + weakness, + fatigue, No fever, No chills Respiratory: + cough, + shortness of breath, + dyspnea on exertion Cardiac: No chest pain, No edema Abdomen: No pain, No nausea Female : No dysuria, No urinary frequency Psychiatric: No depression symptoms, No anhedonism Objective Vital Signs Date Time Temp Pulse Resp B/P (MAP) Pulse Ox O2 Delivery O2 Flow Rate FiO2 02/10/18 11:15 73 20 92 Room Air 02/10/18 10:09 36.6 71 24 100 02/10/18 08:00 100 Room Air 02/10/18 08:00 36.6 71 24 146/67 (93) 100 Room Air 02/10/18 07:19 79 28 100 BiPAP/CPAP 28 02/10/18 07:18 79 100 28 02/10/18 06:00 58 17 145/68 (93) 100 CPAP 02/10/18 04:00 CPAP 02/10/18 04:00 36.7 59 23 156/67 (96) 100 CPAP 02/10/18 02:24 71 100 28 02/10/18 02:00 58 18 137/66 (89) 100 CPAP 02/10/18 00:01 36.8 59 19 150/63 (92) 100 CPAP 02/09/18 23:59 CPAP 02/09/18 22:00 67 24 130/65 (86) 99 Room Air 02/09/18 20:00 Room Air 02/09/18 20:00 36.7 65 18 156/71 (99) 99 Room Air 02/09/18 19:27 68 20 100 Room Air 02/09/18 18:00 71 16 139/66 (90) 100 Room Air 02/09/18 16:00 100 Room Air 02/09/18 16:00 36.7 76 18 132/64 (86) 100 Room Air 02/09/18 15:39 68 100 28 4/30/18 15:36 65 20 100 BiPAP/CPAP 28 02/09/18 14:00 63 17 158/71 (100) 100 CPAP 28 Physical Exam General Appearance: WD/WN, + mild distress, + obese Neck: supple, no JVD Respiratory/Chest: chest non-tender, no respiratory distress, + decreased breath sounds Cardiovascular: regular rate, rhythm, no murmur Abdomen: normal bowel sounds, non tender, soft Extremities: no pedal edema, no calf tenderness Neurologic/Psychiatric: alert, oriented x 3 Laboratory Results Last 24 Hours Test 02/09/18 13:52 02/09/18 15:00 02/09/18 15:59 02/09/18 21:05 Bedside Glucose 152 mg/dl 140 mg/dl 150 mg/dl 182 mg/dl Test 02/10/18 00:05 02/10/18 04:10 02/10/18 04:46 Bedside Glucose 215 mg/dl 152 mg/dl White Blood Count 9.29 K/uL Red Blood Count 3.92 M/uL Hemoglobin 12.0 g/dL Hematocrit 36.0 % Mean Corpuscular Volume 91.8 fL Mean Corpuscular Hemoglobin 30.6 pg Mean Corpuscular Hemoglobin Concent 33.3 g/dl Platelet Count 184 K/uL Mean Platelet Volume 9.7 fL Neutrophils (%) (Auto) 69.9 % Lymphocytes (%) (Auto) 20.0 % Monocytes (%) (Auto) 6.7 % Eosinophils (%) (Auto) 1.4 % Basophils (%) (Auto) 0.1 % Neutrophils # (Auto) 6.49 K/uL Lymphocytes # (Auto) 1.86 K/uL Monocytes # (Auto) 0.62 K/uL Eosinophils # (Auto) 0.13 K/uL Basophils # (Auto) 0.01 K/uL RDW Standard Deviation 49.0 fL RDW Coefficient of Variation 14.5 % Immature Granulocyte % (Auto) 1.9 % Immature Granulocyte # (Auto) 0.18 K/uL Activated Partial Thromboplast Time 24.3 SECONDS Partial Thromboplastin Ratio 0.9 Sodium Level 138 mmol/L Potassium Level 3.3 mmol/L Chloride Level 102 mmol/L Carbon Dioxide Level 30 mmol/L Anion Gap 6.0 mmol/L Blood Urea Nitrogen 59 mg/dl Creatinine 1.96 mg/dl Est Creatinine Clear Calc Drug Dose 26.2 ml/min Estimated GFR () 28.5 Estimated GFR (Non- 24.6 BUN/Creatinine Ratio 30.4 Random Glucose 163 mg/dl Calcium Level 8.2 mg/dl Phosphorus Level 3.8 mg/dl Magnesium Level 2.4 mg/dl Total Bilirubin 0.5 mg/dl Direct Bilirubin 0.2 mg/dl Aspartate Amino Transf (AST/SGOT) 29 U/L Alanine Aminotransferase (ALT/SGPT) 47 U/L Alkaline Phosphatase 25 U/L Total Protein 6.5 gm/dl Albumin 2.9 gm/dl Assessment and Plan 72-year-old female with past medical history of obstructive sleep apnea, asthma/ COPD, Atrial fibrillation on Coumadin, chronic kidney disease stage IV, hypertension, hypothyroidism, diabetes mellitus type 2 insulin requiring, dyslipidemia, chronic diastolic congestive heart failure, morbid obesity, epiglottic and subepiglottic tracheal stenosis, 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 Status post flexible followed by rigid bronchoscopy with Xomed to debrided this stenotic area done by Dr. Flores 3 days ago, patient tolerated the procedure well had no complaint. Presented with acute shortness of breath. Acute shortness of breath, likely from extrathoracic tracheal intermittent obstruction, Bronchodilators, DuoNeb nebulizer, stop steroids Treat for acute bacterial bronchitis Possible aspiration, Doxycycline was initiated no signs seen on bronchoscopy this will be stopped CT scan without contrast for the neck and chest, 2 cm nodule on thyroid, will recommend outpt follow up Chronic kidney disease stage IV, watch for dosing of meds and limits use of lovenox Atrial fibrillation on Coumadin, Held Coumadin for possible intervention, started on heparin drip, now will downgrade to SC heparin as bridge not required to restart Coumadin for afib. Diabetes mellitus type 2, insulin, had required insulin gtt, but now with heparin gtt off ( mixed in D5) and steroids stopped will transition to sliding scale Diastolic congestive heart failure without exacerbation, remains stable Morbid obesity, BMI of 38 continues to impact on her breathing and chest wall mechanics minimally elevated troponin is secondary to demand ischemia, if further intervention is required for her pulmonary problems, such as a trach to require anesthesia, pt may benefit from an outpt non treadmill stress test
--- NOTE | 2018-02-10 13:38 | Pharmacy Progress Note ---
Pharmacy Glycemic Short Note 2 Date of Service February 10, 2018. ASSESSMENT: * 72yo T2DM female with severe hyperglycemia on admission secondary to stress/ infection and steroids (dexamethasone 4mg IV Q8hrs) * Pt initiated on IV insulin infusion 02/07-02/09. Pt transitioned to SQ basal bolus insulin regimen in the afternoon of 02/09. * Pt has received 65 units of SQ insulin + IV insulin infusion over the past 24hrs. * 55 units of basal insulin with Lantus (as 35 units AM + 20 units PM) * 10 units of prandial insulin with NovoLog (low prandial insulin coverage d/t NPO status for most of the day) * IV insulin infusion average rate ~2.5 units/hr * Pt required 3 units of correctional insulin over night to yield near goal range AM fasting (169mg/dl)--> will add this to basal insulin dosing * Post-prandial BSG elevated pre-lunch today. Will tighten CHO coverage PLAN FOR INPATIENT GLYCEMIC CONTROL: * Hold outpatient oral diabetes medications * Basal insulin: increase dosing * Lantus 30 units SQ BID * Bolus insulin * NovoLog per scale ACHS or Q6hrs while NPO * Goal Range: Low 120 mg/dL - High 160 mg/dL * Correction Factor: 15 mg/dL/unit * Nutritional / Prandial insulin per carb ratio of 1 unit per 4 grams CHO consumed
[2018-02-10] MEDS: MONTELUKAST SOD 10 MG TAB PO SCH (20:39)
[2018-02-10] MEDS: EZETIMIBE/SIMVASTATIN 10/40 TAB PO SCH (20:39)
[2018-02-10] MEDS: METOCLOPRAMIDE HCL 10 MG TAB PO SCH (20:39)
[2018-02-10] MEDS: CLONAZEPAM 0.5 MG TAB PO SCH (20:43)
[2018-02-11] VITALS (10 sets, daily range): BP systolic 121–154; BP diastolic 65–83; PULSE 65–88; TEMP 36.2–36.8; O2SAT 93–100
[2018-02-11] MEDS: DiphenhydrAMINE HCL 50 MG/ML VIAL IV SCH ×3 (01:56→17:06)
[2018-02-11] MEDS: LEVOTHYROXINE 50 MCG TAB PO SCH (06:23)
[2018-02-11] MEDS: ALBUT/IPRATROP 3MG/0.5MG NEB 3 ML VIAL INH SCH ×4 (06:58→19:05)
[2018-02-11 07:34] LABS: HEMATOCRIT 40.1 % (37-47); MEAN CELL VOLUME 92.6 fL (80-100); MEAN CORPUSCULAR HGB CONC 32.4 g/dl (32-36); MEAN PLATELET VOLUME 10.3 fL (7.4-10.4); PLATELET COUNT 182 K/uL (130-400); RED CELL DISTRIBUTION WIDTH CV 14.5 % (11.5-14.5); RED CELL DISTRIBUTION WIDTH SD 49.5 fL (36.4-46.3); WHITE BLOOD COUNT 10.79 K/uL (4.8-10.8)
[2018-02-11 07:41] LABS: PTT PATIENT 24.8 SECONDS (21.0-31.0)
[2018-02-11] MEDS: ISOSORBIDE MONONITRATE 30 MG TABCR PO SCH (08:00)
[2018-02-11] MEDS: TIOTROPIUM BROMIDE 5 PUFF/90 MCG INH INH SCH (08:00)
[2018-02-11] MEDS: ASPIRIN 81 MG ECTAB PO SCH (08:00)
[2018-02-11] MEDS: LACTOBACILLUS ACIDOPHILUS 1 GM PACK PO SCH ×3 (08:00→17:06)
[2018-02-11] MEDS: BUMETANIDE 1 MG TAB PO SCH ×2 (08:00→17:05)
[2018-02-11] MEDS: DULOXETINE (CYMBALTA) 30 MG CAP PO SCH (08:00)
[2018-02-11] MEDS: PANTOprazole SOD 40 MG TAB PO SCH (08:00)
[2018-02-11] MEDS: SPIRONOLACTONE 25 MG TAB PO SCH ×2 (08:00→17:05)
[2018-02-11] MEDS: CALCITRIOL 0.25 MCG CAP PO SCH (08:01)
[2018-02-11] MEDS: POLYETHYLENE (MIRALAX) 17 GM PACK PO PRN (08:01)
[2018-02-11] MEDS: METOPROLOL SUCC 25MG EXT REL TAB PO SCH (08:01)
[2018-02-11] MEDS: SENNA 8.6 MG TAB PO PRN (08:01)
[2018-02-11] MEDS: INSULIN GLARGINE SOLOSTAR 100 UNITS/ML 3 ML PEN SC SCH ×2 (08:03→21:11)
[2018-02-11] MEDS: INSULIN ASPART 100 UNITS/ML 3 ML PEN SC SCH ×4 (08:03→21:10)
[2018-02-11] MEDS: HEPARIN SOD 5000 UNIT/0.5 ML CARP SC SCH ×2 (08:03→20:01)
--- NOTE | 2018-02-11 09:24 | Pharmacy Progress Note ---
Pharmacy Glycemic Short Note 2 Date of Service February 11, 2018. OUTPATIENT REGIMEN: * Basaglar 50 units BID * Novolog 5 units with meals * Januvia 100 mg qAM * A1c 9.6% on 12/25/17 Test 02/10/18 11:23 02/10/18 16:50 02/10/18 20:04 02/11/18 07:35 Bedside Glucose 259 mg/dl (70-90) 198 mg/dl (70-90) 172 mg/dl (70-90) 207 mg/dl (70-90) ASSESSMENT: 02/11/18 * Ms. Baer received 110 units of insulin yesterday * No changes to causes of insulin resistance * All BSGs have been above goal * AM Lantus was already given so will increase with PM dose * Will tighten CF but continue same CR for now since tightening to 4 last evening seemed to work well 02/10/18 * 72yo T2DM female with severe hyperglycemia on admission secondary to stress/ infection and steroids (dexamethasone 4mg IV Q8hrs) * Pt initiated on IV insulin infusion 02/07-02/09. Pt transitioned to SQ basal bolus insulin regimen in the afternoon of 02/09. * Pt has received 65 units of SQ insulin + IV insulin infusion over the past 24hrs. * 55 units of basal insulin with Lantus (as 35 units AM + 20 units PM) * 10 units of prandial insulin with NovoLog (low prandial insulin coverage d/t NPO status for most of the day) * IV insulin infusion average rate ~2.5 units/hr * Pt required 3 units of correctional insulin over night to yield near goal range AM fasting (169mg/dl)--> will add this to basal insulin dosing * Post-prandial BSG elevated pre-lunch today. Will tighten CHO coverage PLAN FOR INPATIENT GLYCEMIC CONTROL: * Continue to hold outpatient oral diabetes medications * Basal insulin: increase dosing * Lantus 30 units SQ BID * Lantus 35 units SQ BID if BSG > 160 * Bolus insulin * NovoLog per scale ACHS or Q6hrs while NPO * Goal Range: Low 120 mg/dL - High 160 mg/dL * TIGHTEN Correction Factor: 10 mg/dL/unit * Nutritional / Prandial insulin per carb ratio of 1 unit per 4 grams CHO consumed
[2018-02-11] MEDS ORDERED: ACETAMINOPHEN 500 MG TAB ONE (10:35)
[2018-02-11] MEDS ORDERED: ACETAMINOPHEN 500 MG TAB PO ONE (10:45)
[2018-02-11] MEDS ORDERED: NURSING VERBAL MED ORDER ONE (10:45)
--- NOTE | 2018-02-11 17:13 | Progress Note ---
Subjective Date of Service: February 11, 2018. Subjective pt has a headache today, she is still needing CPAP and now is being evaluated for rehab placement she has no other complaints Problem List Medical Problems: (1) Dyspnea Status: Acute (2) Elevated troponin Status: Acute (3) Renal insufficiency Status: Acute Review of Systems Constitutional: + weakness, + fatigue, No fever, No chills Respiratory: + shortness of breath, + dyspnea on exertion, No cough, No wheezing Cardiac: No chest pain, No PND, No edema Abdomen: No pain, No nausea Neurologic: No memory loss, No paralysis, No weakness Psychiatric: No depression symptoms, No anhedonism Objective Vital Signs Date Time Temp Pulse Resp B/P (MAP) Pulse Ox O2 Delivery O2 Flow Rate FiO2 02/11/18 16:18 36.2 86 18 121/65 (83) 97 Room Air 02/11/18 15:20 85 17 96 Room Air 02/11/18 11:18 88 96 28 02/11/18 11:18 88 17 96 BiPAP/CPAP 28 02/11/18 10:46 71 98 28 02/11/18 08:00 Room Air 02/11/18 07:20 36.8 65 20 136/83 (100) 100 02/11/18 07:09 65 22 99 BiPAP/CPAP 28 02/11/18 02:00 CPAP 6.0 02/11/18 01:10 36.6 74 18 154/83 (106) 99 CPAP 30 02/10/18 22:04 77 97 28 02/10/18 18:57 81 16 95 Room Air Physical Exam General Appearance: WD/WN, + mild distress Eyes: normal inspection, sclerae normal Neck: supple, no JVD Respiratory/Chest: chest non-tender, + decreased breath sounds, + accessory muscle use Cardiovascular: regular rate, rhythm, no murmur Abdomen: normal bowel sounds, non tender, soft Extremities: no pedal edema, no calf tenderness Neurologic/Psychiatric: alert, oriented x 3 Laboratory Results Last 24 Hours Test 02/10/18 20:04 02/11/18 07:17 02/11/18 07:35 02/11/18 11:20 Bedside Glucose 172 mg/dl 207 mg/dl 193 mg/dl White Blood Count 10.79 K/uL Red Blood Count 4.33 M/uL Hemoglobin 13.0 g/dL Hematocrit 40.1 % Mean Corpuscular Volume 92.6 fL Mean Corpuscular Hemoglobin 30.0 pg Mean Corpuscular Hemoglobin Concent 32.4 g/dl RDW Standard Deviation 49.5 fL RDW Coefficient of Variation 14.5 % Platelet Count 182 K/uL Mean Platelet Volume 10.3 fL Activated Partial Thromboplast Time 24.8 SECONDS Partial Thromboplastin Ratio 1.0 Test 02/11/18 16:43 Bedside Glucose 304 mg/dl Assessment and Plan 72-year-old female with past medical history of obstructive sleep apnea, asthma/ COPD, Atrial fibrillation on Coumadin, chronic kidney disease stage IV, hypertension, hypothyroidism, diabetes mellitus type 2 insulin requiring, dyslipidemia, chronic diastolic congestive heart failure, morbid obesity, epiglottic and subepiglottic tracheal stenosis, 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 Status post flexible followed by rigid bronchoscopy with Xomed to debrided this stenotic area done by Dr. Flores 3 days ago, patient tolerated the procedure well had no complaint. Presented with acute shortness of breath. Acute shortness of breath, likely from extrathoracic tracheal intermittent obstruction, Bronchodilators, DuoNeb nebulizer, no off steroids Treat for acute bacterial bronchitis Possible aspiration, Doxycycline was initiated no signs seen on bronchoscopy this will be stopped CT scan without contrast for the neck and chest, 2 cm nodule on thyroid, outpt follow up Chronic kidney disease stage IV, renal dosing of meds, affects choice of anticoagulation Atrial fibrillation on Coumadin, Held Coumadin for possible intervention, SC heparin as bridge not required will restart Coumadin for afib. Diabetes mellitus type 2, insulin, had required insulin gtt, but now with heparin gtt off ( mixed in D5) and steroids stopped will transition to sliding scale Diastolic congestive heart failure without exacerbation, remains stable Morbid obesity, BMI of 38 continues to impact on her breathing and chest wall mechanics minimally elevated troponin is secondary to demand ischemia, if further intervention is required for her pulmonary problems, such as a trach to require anesthesia, pt may benefit from an outpt non treadmill stress test
[2018-02-11] MEDS ORDERED: WARFARIN SOD 5 MG TAB PO ONE (17:15)
[2018-02-11] MEDS: METOCLOPRAMIDE HCL 10 MG TAB PO SCH (19:47)
[2018-02-11] MEDS: CLONAZEPAM 0.5 MG TAB PO SCH (19:47)
[2018-02-11] MEDS: EZETIMIBE/SIMVASTATIN 10/40 TAB PO SCH (19:47)
[2018-02-11] MEDS: MONTELUKAST SOD 10 MG TAB PO SCH (19:47)
--- NOTE | 2018-02-11 21:57 | Progress Note ---
Post ICU Progress Note Date & Time February 11, 2018 at 21:57 Vital Signs Vital Signs Past 12 Hours Date Time Temp Pulse Resp B/P (MAP) Pulse Ox O2 Delivery O2 Flow Rate FiO2 02/11/18 20:02 76 97 28 02/11/18 19:06 82 16 97 Room Air 02/11/18 16:18 36.2 86 18 121/65 (83) 97 Room Air 02/11/18 16:00 93 Room Air 02/11/18 15:20 85 17 96 Room Air 02/11/18 11:18 88 96 28 02/11/18 11:18 88 17 96 BiPAP/CPAP 28 02/11/18 10:46 71 98 28 Notes Mental Status: see Notes Nausea / Vomiting: adequately controlled Pain: adequately controlled Airway Patency, RR, SpO2: see Notes BP & HR: stable & adequate Patient is a 72-year-old female who was initially admitted to the ICU with concerns for respiratory distress status post initial bronchoscopy. She was also treated initially for a bronchial pneumonia. She underwent repeat bronchoscopy which demonstrated persistent tracheal stenosis with EDAC. In addition, she was found to have an elevated troponin and some ST changes laterally. She was treated with heparin drip. She continue with aggressive airway management including BiPAP to aid in stenting the airway open. Thankfully, her cardiac enzymes have normalized and her breathing has improved. She will continue to follow with pulmonology. On evaluation, the patient is resting comfortably and sleeping with CPAP in place. At this point, noted I did not wish to awaken the patient for evaluation. Consider outpatient follow up in 1 to 2 weeks with: Pulm, PCP Repeat imaging needed: Per admitting services Follow up cultures: None Reviewed progress notes, labs, and inpatient medication list Continue current management Additional recommendations: Continue with pulmonary recommendations. Thank you for allowing us to participate in the care of this patient. At this time, Critical Care Services will sign off on this case. Please feel free to reconsult as needed. Consults & Procedures Consultants: Pulmonary Cardiology
[2018-02-12] VITALS (12 sets, daily range): BP systolic 145–167; BP diastolic 73–83; PULSE 72–91; TEMP 36–36.8; O2SAT 93–99
[2018-02-12] MEDS: DiphenhydrAMINE HCL 50 MG/ML VIAL IV SCH ×3 (02:10→17:11)
[2018-02-12] MEDS: LEVOTHYROXINE 50 MCG TAB PO SCH (06:01)
[2018-02-12] MEDS: ALBUT/IPRATROP 3MG/0.5MG NEB 3 ML VIAL INH SCH ×4 (07:01→19:15)
[2018-02-12] MEDS: LACTOBACILLUS ACIDOPHILUS 1 GM PACK PO SCH ×3 (08:09→16:17)
[2018-02-12 08:11] LABS: INR 1.1 (0.9-1.1); PTT PATIENT 25.2 SECONDS (21.0-31.0)
[2018-02-12] MEDS: METOPROLOL SUCC 25MG EXT REL TAB PO SCH (08:11)
[2018-02-12] MEDS: ISOSORBIDE MONONITRATE 30 MG TABCR PO SCH (08:12)
[2018-02-12] MEDS: SENNA 8.6 MG TAB PO PRN (08:12)
[2018-02-12] MEDS: ASPIRIN 81 MG ECTAB PO SCH (08:12)
[2018-02-12] MEDS: PANTOprazole SOD 40 MG TAB PO SCH (08:12)
[2018-02-12] MEDS: CALCITRIOL 0.25 MCG CAP PO SCH (08:12)
[2018-02-12] MEDS: DULOXETINE (CYMBALTA) 30 MG CAP PO SCH (08:12)
[2018-02-12] MEDS: SPIRONOLACTONE 25 MG TAB PO SCH ×2 (08:12→16:16)
[2018-02-12] MEDS: TIOTROPIUM BROMIDE 5 PUFF/90 MCG INH INH SCH (08:13)
[2018-02-12] MEDS: BUMETANIDE 1 MG TAB PO SCH ×2 (08:13→16:17)
[2018-02-12] MEDS: HEPARIN SOD 5000 UNIT/0.5 ML CARP SC SCH ×2 (08:15→20:24)
[2018-02-12] MEDS: INSULIN ASPART 100 UNITS/ML 3 ML PEN SC SCH ×4 (08:15→21:00)
[2018-02-12] MEDS: INSULIN GLARGINE SOLOSTAR 100 UNITS/ML 3 ML PEN SC SCH ×2 (08:16→21:09)
[2018-02-12 08:28] LABS: CALCIUM 8.2 mg/dl (8.5-10.1); CREATININE 1.95 mg/dl (0.60-1.20); POTASSIUM 3.9 mmol/L (3.5-5.1)
--- NOTE | 2018-02-12 10:22 | Pharmacy Progress Note ---
Pharmacy Glycemic Short Note 2 Date of Service February 12, 2018. OUTPATIENT REGIMEN: * Basaglar 50 units BID * Novolog 5 units with meals * Januvia 100 mg qAM * A1c 9.6% on 12/25/17 Test 02/11/18 11:20 02/11/18 16:43 02/11/18 20:12 02/12/18 07:41 Bedside Glucose 193 mg/dl (70-90) 304 mg/dl (70-90) 205 mg/dl (70-90) Random Glucose 221 mg/dl (70-99) Test 02/12/18 07:53 Bedside Glucose 209 mg/dl (70-90) ASSESSMENT: 02/12/18 * Patient received 131 units of insulin yesterday, all BSGs above goal * No changes to causes of insulin resistance * Est TDD ~ 150 units. Will adjust regimen to reflect this. 02/11/18 * Ms. Baer received 110 units of insulin yesterday * No changes to causes of insulin resistance * All BSGs have been above goal * AM Lantus was already given so will increase with PM dose * Will tighten CF but continue same CR for now since tightening to 4 last evening seemed to work well 02/10/18 * 72yo T2DM female with severe hyperglycemia on admission secondary to stress/ infection and steroids (dexamethasone 4mg IV Q8hrs) * Pt initiated on IV insulin infusion 02/07-02/09. Pt transitioned to SQ basal bolus insulin regimen in the afternoon of 02/09. * Pt has received 65 units of SQ insulin + IV insulin infusion over the past 24hrs. * 55 units of basal insulin with Lantus (as 35 units AM + 20 units PM) * 10 units of prandial insulin with NovoLog (low prandial insulin coverage d/t NPO status for most of the day) * IV insulin infusion average rate ~2.5 units/hr * Pt required 3 units of correctional insulin over night to yield near goal range AM fasting (169mg/dl)--> will add this to basal insulin dosing * Post-prandial BSG elevated pre-lunch today. Will tighten CHO coverage PLAN FOR INPATIENT GLYCEMIC CONTROL: * Continue to hold outpatient oral diabetes medications * Basal insulin: increase dosing * Lantus 30 units SQ BID if BSG < 120 * Lantus 35 units SQ BID if BSG 120-160 * Lantus 40 units SQ BID if BSG > 160 * Bolus insulin * NovoLog per scale ACHS or Q6hrs while NPO * Goal Range: Low 120 mg/dL - High 160 mg/dL * Correction Factor: 10 mg/dL/unit * TIGHTEN Nutritional / Prandial insulin per carb ratio of 1 unit per 3 grams CHO consumed DISCHARGE RECOMMENDATIONS: * A1c above goal * Suspect patient needs more prandial coverage - could consider increasing Novolog to 10 units with each meal
[2018-02-12] MEDS ORDERED: ACETAMINOPHEN 500 MG TAB PO ONE (14:15)
[2018-02-12] MEDS ORDERED: NURSING VERBAL MED ORDER ONE (14:15)
[2018-02-12] MEDS ORDERED: WARFARIN SOD 5 MG TAB PO SCH (16:00)
[2018-02-12] MEDS: POLYETHYLENE (MIRALAX) 17 GM PACK PO PRN (17:11)
--- NOTE | 2018-02-12 17:14 | Progress Note ---
Subjective Date of Service: February 12, 2018. Subjective today pt has acute exacerbation of chronic hip pain, relieved with tylenol, pt did desire to have snf for subacute rehab, and did need some assistance with ADL and ambulation but was denied by insurance review pending appeal, family notified Problem List Medical Problems: (1) Dyspnea Status: Acute (2) Elevated troponin Status: Acute (3) Renal insufficiency Status: Acute Review of Systems Constitutional: + weakness, + fatigue, No fever, No chills Respiratory: + dyspnea on exertion, No cough, No shortness of breath Cardiac: No chest pain, No PND, No edema Abdomen: No pain, No nausea, No vomiting, No diarrhea Musculoskeletal: + joint pain, + muscle pain Female : No dysuria, No urinary frequency, No hematuria, No incontinence Objective Vital Signs Date Time Temp Pulse Resp B/P (MAP) Pulse Ox O2 Delivery O2 Flow Rate FiO2 02/12/18 16:00 93 Room Air 02/12/18 15:36 36.7 72 18 147/73 (97) 99 CPAP 02/12/18 15:32 75 99 28 02/12/18 15:30 75 17 99 BiPAP/CPAP 28 02/12/18 14:22 91 95 02/12/18 11:20 81 16 97 Room Air 02/12/18 08:00 Room Air 02/12/18 07:35 36.8 74 16 145/77 (99) 99 BiPAP 02/12/18 07:03 76 97 28 02/12/18 07:01 78 16 99 BiPAP/CPAP 28 02/12/18 00:20 36.6 83 18 167/82 (110) 99 CPAP 28 02/12/18 00:16 CPAP 02/11/18 20:02 76 97 28 02/11/18 19:06 82 16 97 Room Air Physical Exam General Appearance: WD/WN, + mild distress, + obese Neck: supple, no carotid bruits Respiratory/Chest: chest non-tender, lungs clear, normal breath sounds, + pertinent finding (lung exam just after taking off non invasive ventilator) Cardiovascular: regular rate, rhythm, no murmur Abdomen: normal bowel sounds, non tender, soft Extremities: no pedal edema, no calf tenderness Neurologic/Psychiatric: alert, oriented x 3 Laboratory Results Last 24 Hours Test 02/11/18 20:12 02/12/18 07:41 02/12/18 07:53 02/12/18 11:17 Bedside Glucose 205 mg/dl 209 mg/dl 279 mg/dl Prothrombin Time 11.2 SECONDS Prothromb Time International Ratio 1.1 Activated Partial Thromboplast Time 25.2 SECONDS Partial Thromboplastin Ratio 1.0 Sodium Level 138 mmol/L Potassium Level 3.9 mmol/L Chloride Level 104 mmol/L Carbon Dioxide Level 29 mmol/L Anion Gap 6.0 mmol/L Blood Urea Nitrogen 64 mg/dl Creatinine 1.95 mg/dl Est Creatinine Clear Calc Drug Dose 26.7 ml/min Estimated GFR () 28.7 Estimated GFR (Non- 24.7 BUN/Creatinine Ratio 33.0 Random Glucose 221 mg/dl Calcium Level 8.2 mg/dl Test 02/12/18 16:56 Bedside Glucose 111 mg/dl Assessment and Plan 72-year-old female with past medical history of obstructive sleep apnea, asthma/ COPD, Atrial fibrillation on Coumadin, chronic kidney disease stage IV, hypertension, hypothyroidism, diabetes mellitus type 2 insulin requiring, dyslipidemia, chronic diastolic congestive heart failure, morbid obesity, epiglottic and subepiglottic tracheal stenosis, 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 Status post flexible followed by rigid bronchoscopy with Xomed to debrided this stenotic area done by Dr. Flores 3 days ago, patient tolerated the procedure well had no complaint. Presented with acute shortness of breath. Acute shortness of breath, likely from extrathoracic tracheal intermittent obstruction, Bronchodilators, DuoNeb nebulizer, no off steroids, reinforced use of postive pressure breathing INitially treated for acute bacterial bronchitis Possible aspiration, Doxycycline was initiated no signs seen on bronchoscopy this will be stopped CT scan without contrast for the neck and chest, 2 cm nodule on thyroid, outpt follow up Chronic kidney disease stage IV, renal dosing of meds, affects choice of anticoagulation Atrial fibrillation on Coumadin, Held Coumadin for possible intervention, SC heparin as bridge not required did restart Coumadin for afib. Diabetes mellitus type 2, insulin, had required insulin gtt, but now with heparin gtt off ( mixed in D5) and steroids stopped have transitioned to sliding scale Diastolic congestive heart failure without exacerbation,continues to remain stable Morbid obesity, BMI of 38 continues to impact on her breathing and chest wall mechanics may benefit from an outpt non treadmill stress test
[2018-02-12] MEDS ORDERED: ACETAMINOPHEN 500 MG TAB PO PRN (17:15)
[2018-02-12] MEDS: MONTELUKAST SOD 10 MG TAB PO SCH (20:22)
[2018-02-12] MEDS: CLONAZEPAM 0.5 MG TAB PO SCH (20:22)
[2018-02-12] MEDS: EZETIMIBE/SIMVASTATIN 10/40 TAB PO SCH (20:23)
[2018-02-12] MEDS: METOCLOPRAMIDE HCL 10 MG TAB PO SCH (20:23)
[2018-02-13] MEDS: DiphenhydrAMINE HCL 50 MG/ML VIAL IV SCH ×2 (02:12→10:15)
[2018-02-13] MEDS: LEVOTHYROXINE 50 MCG TAB PO SCH (05:48)
[2018-02-13 07:05] VITALS: PULSE 82; O2SAT 100
[2018-02-13] MEDS: ALBUT/IPRATROP 3MG/0.5MG NEB 3 ML VIAL INH SCH (07:05)
[2018-02-13 07:39] VITALS: BP 123/81; PULSE 75; TEMP 35.8; O2SAT 98
[2018-02-13] MEDS: DULOXETINE (CYMBALTA) 30 MG CAP PO SCH (07:55)
[2018-02-13] MEDS: PANTOprazole SOD 40 MG TAB PO SCH (07:56)
[2018-02-13] MEDS: SENNA 8.6 MG TAB PO PRN (07:56)
[2018-02-13] MEDS: ASPIRIN 81 MG ECTAB PO SCH (07:56)
[2018-02-13] MEDS: ISOSORBIDE MONONITRATE 30 MG TABCR PO SCH (07:56)
[2018-02-13] MEDS: METOPROLOL SUCC 25MG EXT REL TAB PO SCH (07:56)
[2018-02-13] MEDS: CALCITRIOL 0.25 MCG CAP PO SCH (07:56)
[2018-02-13] MEDS: SPIRONOLACTONE 25 MG TAB PO SCH (07:57)
[2018-02-13] MEDS: BUMETANIDE 1 MG TAB PO SCH (07:57)
[2018-02-13] MEDS: LACTOBACILLUS ACIDOPHILUS 1 GM PACK PO SCH (07:57)
[2018-02-13] MEDS: INSULIN ASPART 100 UNITS/ML 3 ML PEN SC SCH (08:01)
[2018-02-13] MEDS: INSULIN GLARGINE SOLOSTAR 100 UNITS/ML 3 ML PEN SC SCH (08:02)
[2018-02-13] MEDS: HEPARIN SOD 5000 UNIT/0.5 ML CARP SC SCH (08:03)
[2018-02-13 08:08] LABS: HEMOGLOBIN 12.6 g/dL (12.0-16.0); MEAN CELL VOLUME 91.3 fL (80-100); MEAN CORPUSCULAR HEMOGLOBIN 30.3 pg (25-34); MEAN CORPUSCULAR HGB CONC 33.2 g/dl (32-36); MEAN PLATELET VOLUME 10.5 fL (7.4-10.4); PLATELET COUNT 189 K/uL (130-400); RED CELL DISTRIBUTION WIDTH CV 14.6 % (11.5-14.5); RED CELL DISTRIBUTION WIDTH SD 49.2 fL (36.4-46.3); WHITE BLOOD COUNT 12.32 K/uL (4.8-10.8)
[2018-02-13 08:19] LABS: INR 1.1 (0.9-1.1); PTT PATIENT 26.1 SECONDS (21.0-31.0)
--- NOTE | 2018-02-13 08:55 | Discharge Instructions ---
Discharge Instructions Date of Service February 13, 2018. Admission Reason for Admission: Shortness Of Breath Discharge Discharge Diagnosis / Problem: tracheomalacia, extrinsic tracheal insufficiency , chronic respiratory failu Discharge Goals Goal(s): Diagnostic testing, Therapeutic intervention Activity Recommendations Activity Limitations: as noted below Lifting Limitations: gradually increase as tolerated It is very important to wear your BiPap when ever you sleep or rest, please see your family doctor in a week . Current Hospital Diet Patient's current hospital diet: Diabetes Type 2 Diet Discharge Diet Recommended Diet: Diabetes Type 2 Diet Pending Studies Studies pending at discharge: no Laboratory Results Hemoglobin A1c Test 12/25/17 08:14 Range/Units Estimated Average Glucose 229 mg/dl Hemoglobin A1c 9.6 H 4.5-5.6 % Medical Emergencies . Who to Call and When: Medical Emergencies: If at any time you feel your situation is an emergency, please call 911 immediately. . Non-Emergent Contact Non-Emergency issues call your: Primary Care Provider, Soaker Hides Call Non-Emergent contact if: temperature is above 101, your pain is unusual for you . . "Provider Documentation" section prepared by Gregory Matthews. .
--- NOTE | 2018-02-13 09:32 | Discharge Instructions ---
Discharge Instructions Date of Service February 13, 2018. Admission Reason for Admission: Shortness Of Breath Discharge Discharge Diagnosis / Problem: chronic shortness of breath, tracheal insufficiency Discharge Goals Goal(s): Diagnostic testing, Therapeutic intervention Activity Recommendations Activity Level: Assistance Required . Additional Information Patient informed of condition: Yes Advance Directives: Yes DNR: No Level of Care: Skilled Communicable Disease: No Prognosis: Stable Morris Catheter: No Current Hospital Diet Patient's current hospital diet: Diabetes Type 2 Diet Discharge Diet Recommended Diet: Diabetes Type 2 Diet Pending Studies Studies pending at discharge: no Laboratory Results Hemoglobin A1c Test 12/25/17 08:14 Range/Units Estimated Average Glucose 229 mg/dl Hemoglobin A1c 9.6 H 4.5-5.6 % Medical Emergencies . Who to Call and When: Medical Emergencies: If at any time you feel your situation is an emergency, please call 911 immediately. . Non-Emergent Contact Non-Emergency issues call your: Primary Care Provider, All Purpose Clerk . . "Provider Documentation" section prepared by Gregory Matthews. . Spark Plug Assembler Recommendations Spark Plug Assembler Recommendations: 72-year-old female with past medical history of obstructive sleep apnea, asthma/ COPD, Atrial fibrillation on Coumadin, chronic kidney disease stage IV, hypertension, hypothyroidism, diabetes mellitus type 2 insulin requiring, dyslipidemia, chronic diastolic congestive heart failure, morbid obesity, epiglottic and subepiglottic tracheal stenosis, 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 Status post flexible followed by rigid bronchoscopy with Xomed to debrided this stenotic area done by Dr. Flores Acute shortness of breath, likely from extrathoracic tracheal intermittent obstruction, Bronchodilators, DuoNeb nebulizer, no off steroids, reinforced use of positive pressure breathing Initially treated for acute bacterial bronchitis Possible aspiration, Doxycycline was initiated no signs seen on bronchoscopy this will be stopped CT scan without contrast for the neck and chest, 2 cm nodule on thyroid, outpt follow up Chronic kidney disease stage IV, renal dosing of meds, affects choice of anticoagulation Atrial fibrillation on Coumadin, Held Coumadin for possible intervention, SC heparin as bridge not required did restart Coumadin for afib. Diabetes mellitus type 2, insulin, had required insulin gtt, but now with heparin gtt off ( mixed in D5) and steroids stopped have transitioned to sliding scale Diastolic congestive heart failure without exacerbation,continues to remain stable Morbid obesity, BMI of 38 continues to impact on her breathing and chest wall mechanics may benefit from an outpt non treadmill stress test Core Measure Problem Core Measures: None
[2018-02-13] MEDS: TIOTROPIUM BROMIDE 5 PUFF/90 MCG INH INH SCH (10:14)
[2018-02-13 10:23] VITALS: BP 123/81; PULSE 75; TEMP 35.8; O2SAT 98
--- NOTE | 2018-02-13 16:51 | Discharge Summary ---
Discharge Summary Date of Service February 13, 2018. Discharge Summary Admission Date: Feb 07, 2018 at 14:57 Discharge Date: February 13, 2018 Discharge Disposition: detention facility Principal Diagnosis: respiratory failure acute on chronic due to tracheal comprimise Immunizations: Have You Had Influenza Vaccine: No History of Tetanus Vaccine?: No History of Pneumococcal: No History of Hepatitis B Vaccine: No Medication Reconciliation Continued Medications: Albuterol Sulfate (Proair Respiclick) 108 Mcg/Act Aer 2 PUFFS INH Q4H PRN for SOB/Wheezing Allopurinol (Zyloprim) 100 Mg Tab 100 MG PO QAM Azelastine Hcl (Astepro) 0.15 % Spr 2 SPRY BRIAN BID Budesonide (Inhalation) (Pulmicort Flexhaler) 180 Mcg/Act Inh 2 PUFFS INH BID Bumetanide (Bumex) 2 Mg Tab 2 MG PO BID Calcitriol (Rocaltrol Cap) 0.25 Mcg Cap 0.25 MCG PO DAILY Choline Fenofibrate (Trilipix) 135 Mg Cap 135 MG PO QAM Clonazepam (Klonopin) 0.5 Mg Tab 0.5 MG PO HS, TAB Docusate Sodium (Docusate Sodium) 100 Mg Cap 100 MG PO QID Duloxetine Hcl (Cymbalta) 30 Mg Cap 30 MG PO QAM, CAP Ergocalciferol (Vitamin D 33636 Unit) 50,000 Unit Cap 1 TAB PO MONTHLY Ezetimibe/Simvastatin (Vytorin 10MG/40MG) Tab 1 TAB PO HS Insulin Aspart (Novolog) 100 Units/Ml Inj 5 UNITS SC AC +SLIDING SCALE Insulin Glargine (Basaglar Kwikpen) 100 Unit/Ml Inj 50 SC BID Ipratropium-Albuterol (Duoneb) 3 Ml Nebu 1 TREATMENT INH QID Isosorbide Mononitrate Ext Rel (Imdur Ext Rel) 30 Mg Ertab 90 MG PO QAM 3 TABLET DOSAGE Levothyroxine Sodium (Levothyroxine Sodium) 50 Mcg Tab 50 MCG PO QAM Metoclopramide (Reglan) 10 Mg Tab 10 MG PO QPM Metoprolol Succinate (Toprol Xl) 25 Mg Tabcr 12.5 MG PO QAM Montelukast Sodium (Montelukast Sodium) 10 Mg Tab 10 MG PO HS Nitroglycerin (Nitrostat) 0.4 Mg Tab 0.4 MG UT UD PRN for Chest Pain Pantoprazole (Protonix) 40 Mg Tab 40 MG PO QAM Sitagliptin Phosphate (Januvia) 100 Mg Tab 100 MG PO QAM, TAB Spironolactone (Aldactone) 50 Mg Tab 50 MG PO BID Tiotropium Sidney (Spiriva Handihaler) 30 Puff/540 Mcg Aerp 1 CAP INH QAM Warfarin Sod (Jantoven) 5 Mg Tab 5 MG PO 3XWK MON,WED,FRI Warfarin Sodium (Coumadin) 5 Mg Tab 2.5 MG PO 4XWK, TAB SUN,TUES,THURS,SAT Discontinued Medications: Fexofenadine Hcl (Marie Allergy) 180 Mg Tab 180 MG PO QAM Pseudoephedrine Hcl (12 Hour Decongestant) 120 Mg Tab 1 TAB PO BID Pseudoephedrine-Guaifenesin (Mucinex D) 1 Tab Tab 1 TAB PO QM for 10 Days, TAB Discharge Exam Review of Systems: Constitutional: No fever, No chills Respiratory: No cough, No sputum, No shortness of breath Cardiovascular: No chest pain, No edema Abdomen: No pain, No nausea, No diarrhea Musculoskeletal: No joint pain, No muscle pain, No swelling Genitourinary - Female: No dysuria, No urinary urgency Neurologic: + memory loss, + weakness Psychiatric: + anxiety, No depression symptoms Physical Exam: General Appearance: WD/WN, + mild distress Eyes: normal inspection, sclerae normal Neck: supple, no JVD Respiratory/Chest: chest non-tender, lungs clear, normal breath sounds Cardiovascular: regular rate, rhythm, no murmur Abdomen / GI: normal bowel sounds, non tender, soft Neurologic/Psychiatric: alert, oriented x 3 Hospital Course 72-year-old female with past medical history of obstructive sleep apnea, asthma/ COPD, Atrial fibrillation on Coumadin, chronic kidney disease stage IV, hypertension, hypothyroidism, diabetes mellitus type 2 insulin requiring, dyslipidemia, chronic diastolic congestive heart failure, morbid obesity, epiglottic and subepiglottic tracheal stenosis, 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 Status post flexible followed by rigid bronchoscopy with Xomed to debrided this stenotic area done by Dr. Flores one day prior to admission, patient tolerated the procedure well had no complaint. Presented with acute shortness of breath. Acute shortness of breath, likely from extrathoracic tracheal intermittent obstruction, Bronchodilators, DuoNeb nebulizer, no off steroids, reinforced use of positive pressure breathing Initially treated for acute bacterial bronchitis, Doxycycline was initiated no signs seen on bronchoscopy this will be stopped CT scan without contrast for the neck and chest, 2 cm nodule on thyroid, outpt follow up Chronic kidney disease stage IV, renal dosing of meds, affects choice of anticoagulation Atrial fibrillation on Coumadin, Held Coumadin for possible intervention, SC heparin as bridge not required did restart Coumadin for afib. Diabetes mellitus type 2, insulin, had required insulin gtt, but now with heparin gtt off ( mixed in D5) and steroids stopped have transitioned to sliding scale Diastolic congestive heart failure without exacerbation,continues to remain stable Morbid obesity, BMI of 38 continues to impact on her breathing and chest wall mechanics may eventually benefit from an outpt non treadmill stress test Total Time Spent: Greater than 30 minutes This includes examination of the patient, discharge planning, medication reconciliation, and communication with other providers. Discharge Instructions Please refer to the electronic Patient Visit Report (Discharge Instructions) for additional information.
== END 2018-02-13 11:20 | DRG 202 ==
LOC: EDBD 10:33 → C.EDB 10:34 → C.MSICU 14:57 → ENRESERV 15:22 → C.MSICU 16:13 → UNDOADMIN 16:13 → C.MS2W 02-10 08:28 → ENRESERV 02-10 08:52
PROVIDERS: ADMIT Internal Medicine; ATTEND Internal Medicine
PROC: 0BJ08ZZ Inspection of Tracheobronchial Tree, Via Natural or Artificial Opening Endoscopic (ICD-10-PCS; principal; 2018-02-09)
DX: J39.8 Other specified diseases of upper respiratory tract (principal); J96.20 Acute and chronic respiratory failure, unspecified whether with hypoxia or hypercapnia; I13.0 Hypertensive heart and chronic kidney disease with heart failure and stage 1 through stage 4 chronic kidney disease, or unspecified chronic kidney disease; I50.32 Chronic diastolic (congestive) heart failure; I24.8 Other forms of acute ischemic heart disease; J44.0 Chronic obstructive pulmonary disease with (acute) lower respiratory infection; J44.1 Chronic obstructive pulmonary disease with (acute) exacerbation; E11.22 Type 2 diabetes mellitus with diabetic chronic kidney disease; N18.4 Chronic kidney disease, stage 4 (severe); J38.6 Stenosis of larynx; J20.9 Acute bronchitis, unspecified; I48.91 Unspecified atrial fibrillation; E03.9 Hypothyroidism, unspecified; E78.5 Hyperlipidemia, unspecified; K21.9 Gastro-esophageal reflux disease without esophagitis; E66.01 Morbid (severe) obesity due to excess calories; G47.33 Obstructive sleep apnea (adult) (pediatric); Z79.01 Long term (current) use of anticoagulants; Z79.4 Long term (current) use of insulin; Z79.899 Other long term (current) drug therapy; Z68.39 Body mass index [BMI] 39.0-39.9, adult; Z98.890 Other specified postprocedural states; Z88.1 Allergy status to other antibiotic agents

== ENCOUNTER → 2018-02-23 | Outpatient (CLI) | payer BC ==
[~2018-02-23] MED LIST changes: -CLBPO15 TOP; -FEXO1TAB49 PO; -PSEU120T31 PO; -PSEU60TA80 PO
[2018-02-23 08:43] LABS: BASO % 0.2 %; BASO ABS # 0.03 K/uL (0-0.2); EOS % 2.8 %; EOS ABS # 0.34 K/uL (0-0.5); HEMATOCRIT 35.5 % (37-47); HEMOGLOBIN 11.7 g/dL (12.0-16.0); IG# 0.14 K/uL (0.00-0.02); LYMPH % 10.7 %; LYMPH ABS # 1.29 K/uL (1.2-3.4); MEAN CELL VOLUME 90.8 fL (80-100); MEAN CORPUSCULAR HEMOGLOBIN 29.9 pg (25-34); MEAN PLATELET VOLUME 10.4 fL (7.4-10.4); MONO % 7.3 %; MONO ABS # 0.88 K/uL (0.11-0.59); NEUT % 77.8 %; NEUT ABS # 9.35 K/uL (1.4-6.5); PLATELET COUNT 182 K/uL (130-400); RED CELL DISTRIBUTION WIDTH CV 14.3 % (11.5-14.5); RED CELL DISTRIBUTION WIDTH SD 47.1 fL (36.4-46.3); WHITE BLOOD COUNT 12.03 K/uL (4.8-10.8)
[2018-02-23 08:49] LABS: INR 1.9 (0.9-1.1)
[2018-02-23 08:57] LABS: BLOOD UREA NITROGEN 43 mg/dl (7-18); CREATININE 2.29 mg/dl (0.60-1.20); GLUCOSE 202 mg/dl (70-99)
[2018-02-23 08:58] LABS: CARBON DIOXIDE 31 mmol/L (21-32); POTASSIUM 3.8 mmol/L (3.5-5.1); SODIUM 135 mmol/L (136-145)
== END ==
LOC: C.LABCC 08:16
PROVIDERS: ATTEND Internal Medicine
DX: I48.91 Unspecified atrial fibrillation (principal); N18.4 Chronic kidney disease, stage 4 (severe); E03.9 Hypothyroidism, unspecified; E55.9 Vitamin D deficiency, unspecified

== ENCOUNTER 2018-02-25 10:15 | Inpatient (IN) | payer BC, OTHER ==
[~2018-02-25] VITALS: Ht 154.9 cm; Wt 101.0 kg
[2018-02-25] MEDS ORDERED: SODIUM CHLORIDE 0.9% 1000ML 1,000 ML IV STA (11:10)
[2018-02-25] MEDS ORDERED: ONDANSETRON INJ 2 MG/ML 2 ML VIAL IV STA (11:10)
[2018-02-25 11:28] LABS: BASO % 0.1 %; BASO ABS # 0.01 K/uL (0-0.2); EOS % 6.1 %; EOS ABS # 0.43 K/uL (0-0.5); HEMATOCRIT 36.2 % (37-47); HEMOGLOBIN 11.9 g/dL (12.0-16.0); IG# 0.03 K/uL (0.00-0.02); LYMPH % 11.6 %; LYMPH ABS # 0.82 K/uL (1.2-3.4); MEAN CELL VOLUME 90.3 fL (80-100); MEAN CORPUSCULAR HEMOGLOBIN 29.7 pg (25-34); MEAN CORPUSCULAR HGB CONC 32.9 g/dl (32-36); MEAN PLATELET VOLUME 9.7 fL (7.4-10.4); MONO % 10.1 %; MONO ABS # 0.71 K/uL (0.11-0.59); NEUT % 71.7 %; NEUT ABS # 5.05 K/uL (1.4-6.5); PLATELET COUNT 190 K/uL (130-400); RED CELL DISTRIBUTION WIDTH CV 14.2 % (11.5-14.5); RED CELL DISTRIBUTION WIDTH SD 46.7 fL (36.4-46.3); WHITE BLOOD COUNT 7.05 K/uL (4.8-10.8)
[2018-02-25] MEDS ORDERED: MoRPHine SULFATE 2 MG/ML CARP IV STA (11:33)
[2018-02-25 11:40] LABS: INR 2.4 (0.9-1.1); PTT PATIENT 33.9 SECONDS (21.0-31.0)
[2018-02-25 11:49] LABS: ALBUMIN 2.8 gm/dl (3.4-5.0); CALCIUM 8.4 mg/dl (8.5-10.1); CREATININE 2.08 mg/dl (0.60-1.20); POTASSIUM 3.8 mmol/L (3.5-5.1)
[2018-02-25 11:51] LABS: TOTAL PROTEIN 6.7 gm/dl (6.4-8.2)
[2018-02-25] MEDS ORDERED: PANTOprazole INJ 80 MG in DEXTROSE 5% 100ML IV ONE (12:00)
--- NOTE | 2018-02-25 12:26 | DIAGNOSTIC IMAGING REPORT ---
PA CHEST WITH ABDOMINAL SERIES CLINICAL HISTORY: Generalized abdominal pain. FINDINGS: A PA chest radiograph is compared to chest x-ray and chest CT dated 02/07/2018. The examination is degraded by patient rotation. The heart is enlarged and there is atherosclerotic calcification of the thoracic aorta. The pulmonary vasculature is noncongested. A hiatal hernia is identified. Chronic interstitial thickening is similar to previous. No airspace consolidation or pleural effusion is identified. No pneumothorax is seen. The skeletal structures are osteopenic. The bony thoracic is grossly intact. Supine and erect abdominal radiographs are correlated with abdominal CT dated 07/15/2006. There is a nonobstructed abdominal bowel gas pattern. There is rectosigmoid fecal impaction. Rectal wall thickening is suggested. Mild gaseous distention is noted in the colon. No evidence of intraperitoneal free air is seen. There are no abnormal abdominal calcifications. Numerous levels are seen in the pelvis. The skeletal structures are osteopenic. Lumbosacral spondylosis is observed. IMPRESSION: 1. Cardiomegaly with no acute cardiopulmonary abnormality. 2. Nonobstructed abdominal bowel gas pattern. 3. There is rectosigmoid fecal impaction, and rectal wall thickening is suggested. Correlate clinically for evidence of stercoral proctitis. Electronically signed by: Иван Jackson M.D. 02/25/2018 12:25 PM Dictated Date/Time: 02/25/2018 12:22 PM
[2018-02-25] MEDS: PANTOprazole INJ 40 MG in DEXTROSE 5% 100ML IV SCH ×3 (12:39→22:11)
--- NOTE | 2018-02-25 13:18 | DIAGNOSTIC IMAGING REPORT ---
ABD/PELVIS NO IV OR ORAL CONT CLINICAL HISTORY: 72 years-old Female presenting with abd pain, N/V; blood vomitus and stool. TECHNIQUE: Multidetector CT of the abdomen and pelvis was performed without the use of intravenous contrast. IV contrast: None. A dose lowering technique was used consistent with the principles of ALARA (as low as reasonably achievable). COMPARISON: 07/15/2006. CT DOSE (mGy.cm): The estimated cumulative dose is 1055.42 mGy.cm. FINDINGS: Dynamics Ax Technical Architect topogram: Unremarkable. Lung bases: Dependent and subpleural reticulation and groundglass opacity in the bilateral lower lobes. Stable subpleural 3 mm nodule in the right lower lobe. Multichamber enlargement of the heart. Coronary artery, aortic valve, and mitral annular calcification. Small right and trace left pleural effusions. No pericardial effusion. Liver: Normal morphology. Density consistent with hepatic steatosis. Biliary: No gross biliary ductal dilatation allowing for noncontrast technique. Normal gallbladder. Pancreas: Moderate parenchymal atrophy. Spleen: Normal noncontrast appearance. Adrenal glands: Normal noncontrast appearance. Kidneys and ureters: Normal noncontrast appearance. No nephrolithiasis. No hydronephrosis. Normal ureters. Bladder: Incompletely evaluated secondary to underdistention. Pelvic organs: Uterus surgically absent. No adnexal masses. Bowel: Large stool burden in the rectum. Mild stool burden in the remainder of the colon. The appendix is normal. No bowel obstruction. Moderate hiatal hernia. Ingested material within the stomach. Evaluation for gastrointestinal hemorrhage is extremely limited without intravenous contrast. Peritoneal cavity: No free fluid or intraperitoneal gas. Lymph nodes: No gross lymphadenopathy allowing for noncontrast technique. Vasculature: Atherosclerosis of the normal caliber abdominal aorta. Abdominal wall: Diastasis of the rectus abdominis. Musculoskeletal: Degenerative changes of the spine. Bilateral pars defects of L5 with resulting 10 mm of grade 2 anterolisthesis of L5 on S1. IMPRESSION: 1. Evaluation for gastrointestinal hemorrhage is extremely limited without intravenous contrast. Allowing for this no acute intra-abdominal pathology. No bowel obstruction or free air. 2. Moderate hiatal hernia. 3. Hepatic steatosis. 4. Dependent changes in the lungs may represent atelectasis or chronic aspiration. 5. Small right and trace left pleural effusions. Electronically signed by: Devan Edwards M.D. 02/25/2018 1:17 PM Dictated Date/Time: 02/25/2018 1:08 PM
--- NOTE | 2018-02-25 14:09 | History and Physical ---
History & Physical Date & Time of Service: February 25, 2018 at 13:55 Chief Complaint: Abdominal Pain Primary Care Physician: Oleg Chi History of Present Illness Source: patient, hospital records, other 72 y/o F Hx TAMMIE, , asthma/COPD, CKD IV, HTN, hypothyroidism, DM II, HPL, chronic diastolic grade I diastolic CHF, morbid obesity, epiglottic and subepiglottic tracheal stenosis. The pt recently required hospitalization for Laryngeal edema and COPD exacerbation which followed a bronchoscopy and treatment with Xomed for glottic stenosis. The pt states that beginning earlier today, she developed lower abdominal pain, nausea and then had several bouts of dark colored emesis. She also describes dark colored stool over the past few days. She denies fevers, CP, SOB or lightheadedness. Past Medical/Surgical History 1) Grade I Diastolic CHF 2) TAMMIE 3) COPD 4) HTN 5) CKD IV 6) HPL 7) Morbid obesity 8) Gout 9) epiglottic an subglottic stenosis 10) DM II 11) Elevated trop - type II IN 01/2018 Family History Noncontributory Social History Smoking Status: Never Smoker Marital Status: single Occupational Status: disabled Immunizations History of Influenza Vaccine: No History of Tetanus Vaccine?: No History of Pneumococcal: No History of Hepatitis B Vaccine: No Allergies Coded Allergies: Clarithromycin (Verified Allergy, Intermediate, RASH AND ITCHING, 02/05/18) Home Medications Scheduled Allopurinol (Zyloprim), 100 MG PO QAM Azelastine Hcl (Astepro), 2 SPRY BRIAN BID Budesonide (Inhalation) (Pulmicort Flexhaler), 2 PUFFS INH BID Bumetanide (Bumex), 2 MG PO BID Calcitriol (Rocaltrol Cap), 0.25 MCG PO DAILY Choline Fenofibrate (Trilipix), 135 MG PO QAM Clonazepam (Klonopin), 0.5 MG PO HS Docusate Sodium (Docusate Sodium), 100 MG PO QID Duloxetine Hcl (Cymbalta), 30 MG PO QAM Ergocalciferol (Vitamin D 75142 Unit), 1 TAB PO MONTHLY Ezetimibe/Simvastatin (Vytorin 10MG/40MG), 1 TAB PO HS Insulin Aspart (Novolog), 5 UNITS SC AC Insulin Glargine (Basaglar Kwikpen), 50 SC BID Ipratropium-Albuterol (Duoneb), 1 TREATMENT INH QID Isosorbide Mononitrate Ext Rel (Imdur Ext Rel), 90 MG PO QAM Levothyroxine Sodium (Levothyroxine Sodium), 50 MCG PO QAM Metoclopramide (Reglan), 10 MG PO QPM Metoprolol Succinate (Toprol Xl), 12.5 MG PO QAM Montelukast Sodium (Montelukast Sodium), 10 MG PO HS Pantoprazole (Protonix), 40 MG PO QAM Sitagliptin Phosphate (Januvia), 100 MG PO QAM Spironolactone (Aldactone), 50 MG PO BID Tiotropium [place] (Spiriva Handihaler), 1 CAP INH QAM Warfarin Sod (Jantoven), 5 MG PO 3XWK Warfarin Sodium (Coumadin), 2.5 MG PO 4XWK Scheduled PRN Albuterol Sulfate (Proair Respiclick), 2 PUFFS INH Q4H PRN for SOB/Wheezing Nitroglycerin (Nitrostat), 0.4 MG UT UD PRN for Chest Pain Review of Systems Constitutional: + weakness, No fever, No chills, No sweats Eyes: No worsening of vision ENT: No hearing loss, No unusual epistaxis, No nasal symptoms Respiratory: No cough, No sputum, No wheezing Cardiovascular: No chest pain, No PND Abdomen: + pain, + nausea, + vomiting, + GI bleeding, + problem reported (Dark stool and coffee-ground emesis described) Musculoskeletal: No joint pain Genitourinary - Female: No dysuria, No urinary frequency, No urinary urgency Neurologic: No memory loss, No paralysis, No weakness Psychiatric: No depression symptoms Endocrine: No fatigue Hematologic / Lymphatic: + abnormal bleeding/bruising Integumentary: No rash Physical Exam Vital Signs Date Time Temp Pulse Resp B/P (MAP) Pulse Ox O2 Delivery O2 Flow Rate FiO2 02/25/18 13:33 78 18 140/67 95 Room Air 02/25/18 11:44 87 20 138/64 96 Room Air 02/25/18 10:32 126 02/25/18 10:31 37.6 87 19 142/67 96 Room Air General Appearance: WD/WN, no apparent distress Head: normocephalic Eyes: normal inspection ENT: normal ENT inspection, pharynx normal Neck: supple, no JVD Respiratory/Chest: chest non-tender, lungs clear Cardiovascular: regular rate, rhythm, no edema Abdomen/GI: normal bowel sounds, + pertinent finding (Mild distention and mid diffuse tederness to palpation) Back: normal inspection, no CVA tenderness Extremities/Musculoskelatal: normal inspection, no calf tenderness Neurologic/Psych: 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 II-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 nml as tested, no motor/sensory deficits, alert, oriented x 3 Skin: normal color Diagnostics Laboratory Results Results Past 24 Hours Test 02/25/18 10:58 02/25/18 11:25 Range/Units White Blood Count 7.05 4.8-10.8 K/uL Red Blood Count 4.01 4.2-5.4 M/uL Hemoglobin 11.9 12.0-16.0 g/dL Hematocrit 36.2 37-47 % Mean Corpuscular Volume 90.3 80-100 fL Mean Corpuscular Hemoglobin 29.7 25-34 pg Mean Corpuscular Hemoglobin Concent 32.9 32-36 g/dl Platelet Count 190 130-400 K/uL Mean Platelet Volume 9.7 7.4-10.4 fL Neutrophils (%) (Auto) 71.7 % Lymphocytes (%) (Auto) 11.6 % Monocytes (%) (Auto) 10.1 % Eosinophils (%) (Auto) 6.1 % Basophils (%) (Auto) 0.1 % Neutrophils # (Auto) 5.05 1.4-6.5 K/uL Lymphocytes # (Auto) 0.82 1.2-3.4 K/uL Monocytes # (Auto) 0.71 0.11-0.59 K/uL Eosinophils # (Auto) 0.43 0-0.5 K/uL Basophils # (Auto) 0.01 0-0.2 K/uL RDW Standard Deviation 46.7 36.4-46.3 fL RDW Coefficient of Variation 14.2 11.5-14.5 % Immature Granulocyte % (Auto) 0.4 % Immature Granulocyte # (Auto) 0.03 0.00-0.02 K/uL Prothrombin Time 24.7 9.0-12.0 SECONDS Prothromb Time International Ratio 2.4 0.9-1.1 Activated Partial Thromboplast Time 33.9 21.0-31.0 SECONDS Partial Thromboplastin Ratio 1.3 Sodium Level 136 136-145 mmol/L Potassium Level 3.8 3.5-5.1 mmol/L Chloride Level 101 98-107 mmol/L Carbon Dioxide Level 27 21-32 mmol/L Anion Gap 8.0 3-11 mmol/L Blood Urea Nitrogen 49 7-18 mg/dl Creatinine 2.08 0.60-1.20 mg/dl Est Creatinine Clear Calc Drug Dose 26.0 ml/min Estimated GFR () 26.5 Estimated GFR (Non- 22.9 BUN/Creatinine Ratio 23.4 10-20 Random Glucose 101 70-99 mg/dl Calcium Level 8.4 8.5-10.1 mg/dl Total Bilirubin 0.5 0.2-1 mg/dl Direct Bilirubin 0.1 0-0.2 mg/dl Aspartate Amino Transf (AST/SGOT) 11 15-37 U/L Alanine Aminotransferase (ALT/SGPT) 16 12-78 U/L Alkaline Phosphatase 33 45-117 U/L Total Protein 6.7 6.4-8.2 gm/dl Albumin 2.8 3.4-5.0 gm/dl Lipase 28 73-393 U/L Urine Color YELLOW Urine Appearance CLEAR CLEAR Urine pH 5.0 4.5-7.5 Urine Specific [place] 1.015 1.000-1.030 Urine Protein NEG NEG Urine Glucose (UA) 1+ NEG Urine Ketones NEG NEG Urine Occult Blood NEG NEG Urine Nitrite NEG NEG Urine Bilirubin NEG NEG Urine Urobilinogen NEG NEG Urine Leukocyte Esterase NEG NEG Diagnostic Radiology CT abdomen: 1. Evaluation for gastrointestinal hemorrhage is extremely limited without intravenous contrast. Allowing for this no acute intra-abdominal pathology. No bowel obstruction or free air. 2. Moderate hiatal hernia. 3. Hepatic steatosis. 4. Dependent changes in the lungs may represent atelectasis or chronic aspiration. 5. Small right and trace left pleural effusions. EKG NSR, L axis, LVH Impression Assessment and Plan 72 y/o F Hx TAMMIE, asthma/COPD, CKD IV, HTN, hypothyroidism, DM II, HPL, chronic diastolic grade I diastolic CHF, morbid obesity, epiglottic and subepiglottic tracheal stenosis. The pt recently required hospitalization for Laryngeal edema and COPD exacerbation which followed a bronchoscopy and treatment with Xomed for glottic stenosis. The pt states that beginning earlier today, she developed lower abdominal pain, nausea and then had several bouts of dark colored emesis. She also describes dark colored stool over the past few days. She denies fevers, CP, SOB or lightheadedness. 1) GI bleed - will trend hemoglobin and consult GI. Her INR is therapeutic and she received vitamin K therefore. She is placed on a Protonix drip and will remain NPO pending GI eval. A consent for transfusion has been placed in the chart. 2) DM II - placed on a SS - Lantus dose reduced to HS 3) Diastolic CHF - small pleural effusions currently - we have held her diuretics and are providing maintenance fluids so that volume status will require daily assessment. 4) CKD IV - creat is at or below baseline 5) COPD - no evidence of acute exacerbation - cont inhalers as prescribed Full code - SCDs due to active bleed Total time for this admit including review of labs, meds, imaging, records - discussion with pt and ER attending - 38 min Resuscitation Status VTE Prophylaxis Will order VTE Prophylaxis: Yes
[2018-02-25] MEDS ORDERED: MoRPHine SULFATE 4 MG/ML 1 ML CARP\\VIAL IV PRN (15:00)
[2018-02-25] MEDS ORDERED: ONDANSETRON INJ 2 MG/ML 2 ML VIAL IV PRN (15:00)
[2018-02-25 15:05] VITALS: BMI 42.2
[2018-02-25] MEDS ORDERED: CARBOHYDRATES FOR HYPOGLYCEMIA PO PRN (15:30)
[2018-02-25] MEDS ORDERED: GLUCAGON FOR INJ 1 MG VIAL IM PRN (15:30)
[2018-02-25] MEDS ORDERED: GLUCOSE 10 TABS/TUBE PO PRN (15:30)
[2018-02-25] MEDS ORDERED: GLUCOSE 40% GEL 15 GM TUBE PO PRN (15:30)
[2018-02-25] MEDS ORDERED: NSS + 20MEQ KCL 1000ML 1,000 ML IV SCH (15:45)
[2018-02-25] MEDS ORDERED: PHYTONADIONE INJ 5 MG in SODIUM CHLORIDE 0.9% 50ML 50 ML IV ONE (15:45)
[2018-02-25 15:55] VITALS: BP 127/74; PULSE 76; TEMP 37; O2SAT 95
[2018-02-25] MEDS: INSULIN ASPART 100 UNITS/ML 3 ML PEN SC SCH ×2 (16:18→21:00)
[2018-02-25] MEDS: DEXTROSE 50% 50 ML SYR IV PRN (16:35)
[2018-02-25] MEDS: METOCLOPRAMIDE HCL 10 MG TAB PO SCH (17:10)
--- NOTE | 2018-02-25 17:40 | EMERGENCY ROOM VISIT NOTE ---
ED Visit Note First contact with patient: 10:56 Chief Complaint: Stomach pain and vomiting. History of Present Illness: Ms. Baer is a 72 year-old white female who is brought into the ED via ambulance From [facility] complaining of diffuse abdominal pain, coffee ground like emesis and black/tarry stools.. Historically patient reports she has had no previous abdominal surgeries and has a history of GERD. Additionally she reports that she is on Coumadin therapy for atrial fibrillation. Patient reports a gradual onset of diffuse abdominal pain early Friday after eating chicken pot pie the night before. Since that time her pain has been constant and has been getting worse. She describes her pain as a combination of sharp and cramping. She rates her discomfort 6/10. Her pain becomes burning when she eats. She has not identified any alleviating factors related to the pain. She reports she had not had any medication for pain prior to arrival at the hospital. Associated with her pain she reports she has had multiple episodes; of at least 4 times, when she had coffee ground emesis and she also reported that she had black/tarry stools but cannot define the amount. Additionally she reports she feels like she may had a fever last night because she felt hot but her temperature was not checked. Patient denies chills, sweats, skin eruptions, skin color changes, upper respiratory tract symptoms, shortness of breath, chest pain, urinary symptoms, hematuria, vaginal bleeding, vaginal discharge, back/flank pain, easy bruising, any abnormal bleeding. Review of Systems: As noted above in history of present illness. All body systems were reviewed and found to be negative as noted above. Past Medical History: As previously noted, aortic insufficiency, tracheal stenosis, COPD, PR, obstructive sleep apnea, thyroid nodule, obesity, diabetes, chronic kidney disease, urinary tract infections, herpes zoster, hyperparathyroidism, vitamin D deficiency, status post tonsillectomy, cataract surgery, unspecified left elbow surgery, carpal tunnel release, left knee arthroplasty, vaginal hysterectomy and partial amputation of the left great toe. Current Medications: Medications Dose Route/Sig Max Daily Dose Days Date Category Dose Instructions Mucinex D (Pseudoephedrine-Guaifenesin) 1 Tab Tab 1 Tab PO QM 10 01/20/18 Reported Levothyroxine Sodium 50 Mcg Tab 50 Mcg PO QAM 01/20/18 Reported Basaglar Kwikpen (Insulin Glargine) 100 Unit/Ml Inj 50 SC BID 11/03/17 Reported Vitamin D 30446 Unit (Ergocalciferol) 50,000 Unit Cap 1 Tab PO MONTHLY 08/20/17 Reported Proair Respiclick (Albuterol Sulfate) 108 Mcg/Act Aer 2 Puffs INH Q4H PRN 08/20/17 Reported Novolog (Insulin Aspart) 100 Units/Ml Inj 5 Units SC AC 08/20/17 Reported +SLIDING SCALE Duoneb (Ipratropium-Albuterol) 3 Ml Nebu 1 Treatment INH QID 08/20/17 Reported Spiriva Handihaler (Tiotropium [place]) 30 Puff/540 Mcg Aerp 1 Cap INH QAM 08/20/17 Reported Astepro (Azelastine Hcl) 0.15 % Spr 2 Day[place] BRIAN BID 08/20/17 Reported 12 Hour Decongestant (Pseudoephedrine Hcl) 120 Mg Tab 1 Tab PO BID 08/20/17 Reported Docusate Sodium 100 Mg Cap 100 Mg PO QID 08/20/17 Reported Bumex (Bumetanide) 2 Mg Tab 2 Mg PO BID 08/20/17 Reported Marie Allergy (Fexofenadine Hcl) 180 Mg Tab 180 Mg PO QAM 08/20/17 Reported Zyloprim (Allopurinol) 100 Mg Tab 100 Mg PO QAM 08/20/17 Reported Jantoven (Warfarin Sodium) 5 Mg Tab 5 Mg PO 3XWK 08/20/17 Reported MON,WED,FRI Pulmicort Flexhaler (Budesonide (Inhalation)) 180 Mcg/Act Inh 2 Puffs INH BID 08/11/17 Reported Montelukast Sodium 10 Mg Tab 10 Mg PO HS 04/10/17 Reported Rocaltrol Cap (Calcitriol) 0.25 Mcg Cap 0.25 Mcg PO DAILY 07/30/16 Reported Toprol Xl (Metoprolol Succinate) 25 Mg Tabcr 12.5 Mg PO QAM 03/12/16 Reported Klonopin (Clonazepam) 0.5 Mg Tab 0.5 Mg PO HS 12/08/15 Reported Vytorin 10MG/40MG (Ezetimibe/Simvastatin) Tab 1 Tab PO HS 12/08/15 Reported Cymbalta (Duloxetine Hcl) 30 Mg Cap 30 Mg PO QAM 1/23/15 Reported Coumadin (Warfarin Sodium) 5 Mg Tab 2.5 Mg PO 4XWK 01/27/14 Reported SUN,TUES,THURS,SAT Trilipix (Choline Fenofibrate) 135 Mg Cap 135 Mg PO QAM 12/02/13 Reported Januvia (Sitagliptin Phosphate) 100 Mg Tab 100 Mg PO QAM 08/02/13 Reported Protonix (Pantoprazole Sodium) 40 Mg Tab 40 Mg PO QAM 04/21/13 Reported Reglan (Metoclopramide HCl) 10 Mg Tab 10 Mg PO QPM 09/28/09 Reported Nitrostat (Nitroglycerin) 0.4 Mg Tab 0.4 Mg UT UD PRN 09/28/09 Reported Aldactone (Spironolactone) 50 Mg Tab 50 Mg PO BID 09/28/09 Reported Imdur Ext Rel (Isosorbide Mononitrate) 30 Mg Ertab 90 Mg PO QAM 09/28/09 Reported 3 TABLET DOSAGE Allergies to Medications: Clarithromycin. Social History: Patient is not employed, she currently stays in a nursing facility for rehabilitation; she denies tobacco and alcohol use. Physical Examination: Vital Signs: Date Time Temp Pulse Resp B/P (MAP) Pulse Ox O2 Delivery O2 Flow Rate FiO2 02/25/18 14:25 84 19 116/64 95 Room Air 02/25/18 13:33 78 18 140/67 95 Room Air 02/25/18 11:44 87 20 138/64 96 Room Air 02/25/18 10:31 37.6 87 19 142/67 96 Room Air GENERAL: 72-year-old female in mild distress due to pain, nontoxic-appearing, afebrile and hemodynamically stable. NEUROLOGICAL: Awake, alert and oriented to person, place and time. Answering questions appropriately and following commands. Good hand eye coordination. SKIN: Warm, dry and pink. Bandage on the left lower leg that has been dated and was reported as a soft tissue injury. HEENT: Atraumatic and normocephalic. PERRLA. Sclera white and conjunctiva pale. Oral cavity moist and pink. Pharynx is nonerythematous or edematous. Speech normal. Airway is patent. No lymphadenopathy. Trachea midline. No jugular venous distention. BACK: No tenderness over the bony spine. THORAX: Lungs sounds are clear to auscultation and equal bilaterally with symmetrical chest wall. No wheezing, rales or rhonchi. No crepitus, tenderness , subcutaneous air or deformities noted. HEART: Regular rate and rhythm. No gallops, rubs or murmurs are appreciated. ABDOMEN: Obese and firm throughout with diffuse tenderness and minimal guarding. Positive bowel sounds in all quadrants. No rigidity or organomegaly. I was able to collect a stool sample from her diaper; it was brown with black flakes. There was a liquid and soft component to it but no formed component. Her guaiac taste was trace heme positive. EXTREMITIES: Moves all extremities well on command and with purpose. All distal neurovascular statuses are intact and equal bilaterally. ED Course: Patient is assessed as noted above. Patient's medication list was reviewed. Laboratory Testing: Test 02/25/18 10:58 02/25/18 11:25 Range/Units White Blood Count 7.05 4.8-10.8 K/uL Red Blood Count 4.01 4.2-5.4 M/uL Hemoglobin 11.9 12.0-16.0 g/dL Hematocrit 36.2 37-47 % Mean Corpuscular Volume 90.3 80-100 fL Mean Corpuscular Hemoglobin 29.7 25-34 pg Mean Corpuscular Hemoglobin Concent 32.9 32-36 g/dl Platelet Count 190 130-400 K/uL Mean Platelet Volume 9.7 7.4-10.4 fL Neutrophils (%) (Auto) 71.7 % Lymphocytes (%) (Auto) 11.6 % Monocytes (%) (Auto) 10.1 % Eosinophils (%) (Auto) 6.1 % Basophils (%) (Auto) 0.1 % Neutrophils # (Auto) 5.05 1.4-6.5 K/uL Lymphocytes # (Auto) 0.82 1.2-3.4 K/uL Monocytes # (Auto) 0.71 0.11-0.59 K/uL Eosinophils # (Auto) 0.43 0-0.5 K/uL Basophils # (Auto) 0.01 0-0.2 K/uL RDW Standard Deviation 46.7 36.4-46.3 fL RDW Coefficient of Variation 14.2 11.5-14.5 % Immature Granulocyte % (Auto) 0.4 % Immature Granulocyte # (Auto) 0.03 0.00-0.02 K/uL Prothrombin Time 24.7 9.0-12.0 SECONDS Prothromb Time International Ratio 2.4 0.9-1.1 Activated Partial Thromboplast Time 33.9 21.0-31.0 SECONDS Partial Thromboplastin Ratio 1.3 Sodium Level 136 136-145 mmol/L Potassium Level 3.8 3.5-5.1 mmol/L Chloride Level 101 98-107 mmol/L Carbon Dioxide Level 27 21-32 mmol/L Anion Gap 8.0 3-11 mmol/L Blood Urea Nitrogen 49 7-18 mg/dl Creatinine 2.08 0.60-1.20 mg/dl Est Creatinine Clear Calc Drug Dose 26.0 ml/min Estimated GFR () 26.5 Estimated GFR (Non- 22.9 BUN/Creatinine Ratio 23.4 10-20 Random Glucose 101 70-99 mg/dl Calcium Level 8.4 8.5-10.1 mg/dl Total Bilirubin 0.5 0.2-1 mg/dl Direct Bilirubin 0.1 0-0.2 mg/dl Aspartate Amino Transf (AST/SGOT) 11 15-37 U/L Alanine Aminotransferase (ALT/SGPT) 16 12-78 U/L Alkaline Phosphatase 33 45-117 U/L Total Protein 6.7 6.4-8.2 gm/dl Albumin 2.8 3.4-5.0 gm/dl Lipase 28 73-393 U/L Urine Color YELLOW Urine Appearance CLEAR CLEAR Urine pH 5.0 4.5-7.5 Urine Specific [place] 1.015 1.000-1.030 Urine Protein NEG NEG Urine Glucose (UA) 1+ NEG Urine Ketones NEG NEG Urine Occult Blood NEG NEG Urine Nitrite NEG NEG Urine Bilirubin NEG NEG Urine Urobilinogen NEG NEG Urine Leukocyte Esterase NEG NEG Acute Abdominal Series: Was read by myself and the radiologist and shows a PA chest that shows no infiltrates, effusions or pneumothorax. Mild cardiomegaly that was documented in previous. Normal bony anatomy. Abdominal component shows no free air under the diaphragm, no obstructive bowel gas pattern. Radiologist notes rectosigmoid fecal impaction with rectal wall thickening of questionable etiology. Noncontrast Abdominal/Pelvic CT: Was reviewed by myself and read by the radiologist and shows no bowel obstruction or free air. Moderate hiatal hernia. Hepatic stenosis. Dependent changes in the lungs may represent atelectasis or chronic aspiration. Small right and trace left pleural effusions. EKG: Shows normal sinus rhythm with a ventricular rate of 82 bpm. Left axial deviation, left ventricular hypertrophy. Normal intervals. This was compared to a previous from January 2018 in no acute changes were noted. Patient was hydrated with normal saline and she received 4 mg of Zofran IV, 2 mg of Zofran IV and she was started on a Protonix bolus and drip. Patient was reassessed multiple times during her stay in the emergency department. Patient's case was reviewed with Dr. Rodriguez; he independently assessed the patient we agreed on diagnostic approach, treatment, disposition and plan. Patient's case was consulted with case management and Dr. Mtz, hospitalist for medical observation/admission. Patient was educated about today's findings. Clinical Impression: Upper gastrointestinal bleeding. Decision-Making: Initially my differential diagnosis I considered gastritis, esophagitis, gastric ulcers, GERD exacerbation and other causes. Disposition and Plan: Patient be brought into the hospital by Dr. Mtz; please see his notes and orders for final disposition and plan.
[2018-02-25] MEDS: ALBUT/IPRATROP 3MG/0.5MG NEB 3 ML VIAL INH SCH (19:55)
[2018-02-25 20:11] VITALS: PULSE 71; O2SAT 95
[2018-02-25 20:21] VITALS: BP 136/71; PULSE 73; TEMP 36.8; O2SAT 98
[2018-02-25] MEDS: INSULIN GLARGINE SOLOSTAR 100 UNITS/ML 3 ML PEN SC SCH (21:00)
[2018-02-25] MEDS: CLONAZEPAM 0.5 MG TAB PO SCH (21:24)
[2018-02-25] MEDS: MONTELUKAST SOD 10 MG TAB PO SCH (21:25)
[2018-02-25 23:51] VITALS: BP 117/70; PULSE 74; TEMP 37; O2SAT 93
[2018-02-26] VITALS (13 sets, daily range): BP systolic 109–168; BP diastolic 64–84; PULSE 66–87; TEMP 36.8–37.3; O2SAT 92–100; Ht 154.9 cm; Wt 101.0 kg
[2018-02-26] MEDS: PANTOprazole INJ 40 MG in DEXTROSE 5% 100ML IV SCH ×4 (03:30→21:22)
[2018-02-26] MEDS: LEVOTHYROXINE 50 MCG TAB PO SCH (06:21)
[2018-02-26] MEDS: ALBUT/IPRATROP 3MG/0.5MG NEB 3 ML VIAL INH SCH ×4 (07:26→19:37)
[2018-02-26] MEDS: DEXTROSE 50% 50 ML SYR IV PRN (07:49)
[2018-02-26] MEDS: DULOXETINE (CYMBALTA) 30 MG CAP PO SCH (08:29)
[2018-02-26] MEDS: INSULIN ASPART 100 UNITS/ML 3 ML PEN SC SCH ×4 (08:30→21:21)
[2018-02-26] MEDS: CALCITRIOL 0.25 MCG CAP PO SCH (08:30)
[2018-02-26] MEDS: ISOSORBIDE MONONITRATE 30 MG TABCR PO SCH (08:30)
[2018-02-26] MEDS: D5NSS + 20MEQ KCL 1,000 ML IV SCH ×2 (09:00→23:32)
[2018-02-26] MEDS ORDERED: METOPROLOL SUCC 25MG EXT REL TAB PO SCH (09:00)
[2018-02-26 11:13] LABS: HEMATOCRIT 33.2 % (37-47); HEMOGLOBIN 10.8 g/dL (12.0-16.0)
[2018-02-26 11:30] LABS: INR 1.3 (0.9-1.1)
[2018-02-26 11:39] LABS: CALCIUM 7.9 mg/dl (8.5-10.1); CREATININE 1.97 mg/dl (0.60-1.20); POTASSIUM 3.5 mmol/L (3.5-5.1)
--- NOTE | 2018-02-26 13:36 | Progress Note ---
Subjective Date of Service: February 26, 2018. Subjective Pt evaluation today including: conversation w/ patient, physical exam, lab review, review of inpatient medication list Pain: mild epigastric pain PO Intake: NPO Voiding: no voiding problems patient feeling well, mild epigastric pain no further vomiting, she has had some diarrhea which she describes as black the vomit yesterday she describes as black, never saw that before no history of PUD, never had a screening colonoscopy, never seen a GI physician reviewed labs Cr down at 1.97, Hb went down to 10.4 then up to 10.8, INR 1.3 on monitor she is in and out of atrial fibrillation, history of this Problem List Medical Problems: (1) Dyspnea Status: Acute (2) Elevated troponin Status: Acute (3) Renal insufficiency Status: Acute Review of Systems Abdomen: + diarrhea, + GI bleeding (dark stools) All Other Systems: Reviewed and Negative Medications Current Inpatient Medications Medications (Trade) Dose Ordered Sig/Benito Route Start Time Stop Time Status Last Admin Dose Admin Pantoprazole Sodium 40 mg/ Dextrose 100 ml @ 20 mls/hr Q5H IV 02/25/18 12:15 03/27/18 12:14 02/26/18 09:41 20 MLS/HR Calcitriol (Rocaltrol Cap) 0.25 mcg DAILY PO 02/26/18 09:00 03/28/18 08:59 02/26/18 08:30 0.25 MCG Clonazepam (Klonopin Tab) 0.5 mg HS PO 02/25/18 21:00 03/27/18 20:59 02/25/18 21:24 0.5 MG Duloxetine HCl (Cymbalta Cap) 30 mg QAM PO 02/26/18 09:00 03/28/18 08:59 02/26/18 08:29 30 MG Insulin Glargine (Lantus Solostar Pen) 50 units HS SC 02/25/18 21:00 03/27/18 20:59 Albuterol/ Ipratropium (Duoneb) 1 ml QIDR INH 02/25/18 16:00 03/27/18 15:59 02/26/18 11:07 1 ML Isosorbide Mononitrate (Imdur Ext Rel Tab) 90 mg QAM PO 02/26/18 09:00 03/28/18 08:59 02/26/18 08:30 90 MG Levothyroxine Sodium (Synthroid Tab) 50 mcg DAILYBB PO 02/26/18 06:30 03/28/18 06:59 02/26/18 06:21 50 MCG Metoclopramide HCl (Reglan Tab) 10 mg QDD PO 02/25/18 17:00 03/27/18 17:59 02/25/18 17:10 10 MG Metoprolol Succinate (Toprol Xl Tab) 12.5 mg QAM PO 02/26/18 09:00 03/28/18 08:59 02/26/18 08:30 12.5 MG Montelukast Sodium (Singulair Tab) 10 mg HS PO 02/25/18 21:00 03/27/18 20:59 02/25/18 21:25 10 MG Miscellaneous Information (Order Awaiting Action) 1 ea QS N/A 02/25/18 16:00 03/27/18 15:59 Acetaminophen (Tylenol Tab) 650 mg Q4H PRN PO 02/25/18 15:00 03/27/18 14:59 Ondansetron HCl (Zofran Inj) 4 mg Q6H PRN IV 02/25/18 15:00 03/27/18 14:59 Morphine Sulfate (MoRPHine SULFATE INJ) 2 mg Q30M PRN IV 02/25/18 15:00 03/11/18 14:59 Insulin Aspart (novoLOG ASPART) SLIDING SCALE G... ACHS SC 02/25/18 16:00 03/27/18 15:59 Glucose (Glucose 40% Gel) 15-30 GRAMS 15 GRAMS... UD PRN PO 02/25/18 15:30 03/27/18 15:29 02/25/18 16:20 15 GM Glucose (Glucose Chew Tab) 4-8 Tablets 4 Tabl... UD PRN PO 02/25/18 15:30 03/27/18 15:29 Dextrose (Dextrose 50% 50ML Syringe) 25-50ML 25ML FOR ... UD PRN IV 02/25/18 15:30 03/27/18 15:29 02/26/18 07:49 50 ML Glucagon (Glucagon Inj) 1 mg UD PRN IM 02/25/18 15:30 03/27/18 15:29 Carbohydrates (Carbohydrates For Hypoglycemia) 15-30 GRAMS 15 grams if BSG 54-69... UD PRN PO 02/25/18 15:30 03/27/18 15:29 Potassium Chloride/Dextrose/ Sod Cl 1,000 ml @ 75 mls/hr [id number] IV 02/26/18 08:30 03/28/18 08:29 02/26/18 09:00 75 MLS/HR Objective Vital Signs Date Time Temp Pulse Resp B/P (MAP) Pulse Ox O2 Delivery O2 Flow Rate FiO2 02/26/18 12:00 100 Room Air 02/26/18 11:23 37.2 70 16 120/65 (83) 100 Room Air 02/26/18 11:08 70 16 96 Room Air 02/26/18 08:00 95 Room Air 02/26/18 07:26 69 16 97 Room Air 02/26/18 07:09 36.9 70 18 109/65 (80) 95 Room Air 02/26/18 05:30 36.8 71 16 128/82 (97) 92 Room Air 02/26/18 04:00 Room Air 02/26/18 00:00 Room Air 02/25/18 23:51 37.0 74 16 117/70 (86) 93 Room Air 02/25/18 20:30 Room Air 02/25/18 20:21 36.8 73 18 136/71 (92) 98 Room Air 02/25/18 20:11 71 16 95 Room Air 02/25/18 16:00 Room Air 02/25/18 15:55 37.0 76 18 127/74 (91) 95 Room Air 02/25/18 15:13 73 17 134/53 93 02/25/18 15:05 Room Air 02/25/18 14:25 84 19 116/64 95 Room Air 02/25/18 13:33 78 18 140/67 95 Room Air Physical Exam General Appearance: no apparent distress, + obese Eyes: normal inspection, EOMI, sclerae normal ENT: normal ENT inspection, hearing grossly normal, pharynx normal Neck: supple, no adenopathy, no JVD, trachea midline Respiratory/Chest: chest non-tender, lungs clear, normal breath sounds, no respiratory distress, no accessory muscle use Cardiovascular: regular rate, rhythm, no edema, no gallop, no JVD, no murmur Abdomen: normal bowel sounds, non tender, soft, no organomegaly Extremities: normal range of motion, non-tender, normal inspection, no pedal edema, no calf tenderness, pelvis stable Neurologic/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: 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 as tested, no motor/sensory deficits, alert, normal mood/affect, oriented x 3 Skin: normal color, warm/dry, no rash Laboratory Results Last 24 Hours Test 02/25/18 16:13 02/25/18 16:19 02/25/18 16:33 02/25/18 17:00 Bedside Glucose 57 mg/dl 52 mg/dl 153 mg/dl Hemoglobin 11.4 g/dL Test 02/25/18 20:39 02/25/18 22:02 02/26/18 00:11 02/26/18 03:45 Bedside Glucose 116 mg/dl 87 mg/dl Hemoglobin 10.9 g/dL 10.4 g/dL Test 02/26/18 07:41 02/26/18 08:14 02/26/18 10:58 02/26/18 11:51 Bedside Glucose 52 mg/dl 145 mg/dl 96 mg/dl Hemoglobin 10.8 g/dL Hematocrit 33.2 % Prothrombin Time 13.3 SECONDS Prothromb Time International Ratio 1.3 Sodium Level 137 mmol/L Potassium Level 3.5 mmol/L Chloride Level 104 mmol/L Carbon Dioxide Level 29 mmol/L Anion Gap 4.0 mmol/L Blood Urea Nitrogen 37 mg/dl Creatinine 1.97 mg/dl Est Creatinine Clear Calc Drug Dose 26.9 ml/min Estimated GFR () 28.3 Estimated GFR (Non- 24.4 BUN/Creatinine Ratio 18.9 Random Glucose 96 mg/dl Calcium Level 7.9 mg/dl Assessment and Plan 72 y/o F Hx TAMMIE, asthma/COPD, CKD IV, HTN, hypothyroidism, DM II, HPL, chronic diastolic grade I diastolic CHF, morbid obesity, epiglottic and subepiglottic tracheal stenosis. The pt recently required hospitalization for Laryngeal edema and COPD exacerbation which followed a bronchoscopy and treatment with Xomed for glottic stenosis. The pt states that beginning earlier today, she developed lower abdominal pain, nausea and then had several bouts of dark colored emesis. She also describes dark colored stool over the past few days. She denies fevers, CP, SOB or lightheadedness. - Possible GI bleed: reported dark (black) vomiting and dark stools, will check heme occult Hb down to 10.8 from 11.9 on admission, no signs of active/brisk bleeding, vitals stable INR reversed, down to 1.3 today continue Protonix drip, keep NPO place GI consult for recommendations - Acute blood loss anemia: mild, only down 1.1 grams, 10.8 today will repeat tomorrow AM - Hypoglycemia with DM type II continue Lantus at 25 units BID (half normal dose since NPO) dextrose added to fluids, episode of hypoglycemia resolved quickly this morning continue to monitor closely - Paroxysmal atrial fibrillation continue Toprol but increase dose to 25mg due to some tachycardia holding Coumadin with possible bleed, INR reversed to 1.3 - Chronic diastolic heart failure: examines euvolemic continue fluids at 75cc/hr since NPO holding diuretics for now - CKD stage IV: Cr stable at 1.9, continue to monitor - COPD: lungs clear, no wheezing, no distress - Recent treatment for epiglottic and sub epiglottic stenosis no wheezing or stridor on exam, breathing comfortably
[2018-02-26] MEDS ORDERED: METOPROLOL SUCC 25MG EXT REL TAB PO STA (13:51)
[2018-02-26] MEDS ORDERED: PROPOFOL IV EMULSION 10 MG/ML 20 ML VIAL ONE (15:43)
[2018-02-26] MEDS ORDERED: LIDOCAINE HCL 2% 2 ML VIAL (20MG/ML) ONE (15:43)
--- NOTE | 2018-02-26 15:51 | Gastrointestinal Consultation ---
Gastrointestinal Consultation Date of Consultation: February 26, 2018 Attending Physician: Dr. Jenkins Consulting Physician: Dr. Zambrano/MARGY Madera Reason for Consultation: Hematemesis History of Present Illness Patient is a 72 year old female with a history of COPD/asthma, HTN, CKD IV, DM II on chronic anticoagulation for history of atrial fibrillation presenting with symptoms of hematemesis beginning two days ago. She states she has had nearly a dozen episodes of dark emesis over the past 48 hours. Continues to have small dark, stools. Yesterday stool was loose but now just formed and in small caliber. INR on arrival was not supratherapeutic but she did receive a dose of Vitamin K and is noted to be 1.3 today. Patient has been kept at NPO status and started on a Protonix ggt. She states that in addition to dark stools , she is having symptoms of nausea and epigastric pain. Vital signs are stable. H&H has dropped one gram since admission. Past Medical/Surgical History Medical Problems: (1) Dyspnea Status: Acute (2) Elevated troponin Status: Acute (3) Renal insufficiency Status: Acute Past Medical History: 1. TAMMIE 2. COPD 3. HTN 4. CKD IV 5. HPL 6. Obesity 7. Atrial fibrillation 8. Gout 9. Epiglottic stenosis 10. DM II 11. PA 01/28 Past Surgical History: Cataract surgery Family History Negative for GI malignancy or IBD Social History Smoking Status: Never Smoker Alcohol Use: none Drug Use: none Marital Status: single Occupation Status: disabled Allergies Coded Allergies: Clarithromycin (Verified Allergy, Intermediate, RASH AND ITCHING, 02/05/18) Current Medications Home Meds and Scripts Medications Dose Route/Sig Max Daily Dose Days Date Category Dose Instructions Levothyroxine Sodium 50 Mcg Tab 50 Mcg PO QAM 01/20/18 Reported Basaglar Kwikpen (Insulin Glargine) 100 Unit/Ml Inj 50 SC BID 11/03/17 Reported Vitamin D 39729 Unit (Ergocalciferol) 50,000 Unit Cap 1 Tab PO MONTHLY 08/20/17 Reported Proair Respiclick (Albuterol Sulfate) 108 Mcg/Act Aer 2 Puffs INH Q4H PRN 08/20/17 Reported Novolog (Insulin Aspart) 100 Units/Ml Inj 5 Units SC AC 08/20/17 Reported +SLIDING SCALE Duoneb (Ipratropium-Albuterol) 3 Ml Nebu 1 Treatment INH QID 08/20/17 Reported Spiriva Handihaler (Tiotropium Latexo) 30 Puff/540 Mcg Aerp 1 Cap INH QAM 08/20/17 Reported Astepro (Azelastine Hcl) 0.15 % Spr 2 [place] BRIAN BID 08/20/17 Reported Docusate Sodium 100 Mg Cap 100 Mg PO QID 08/20/17 Reported Bumex (Bumetanide) 2 Mg Tab 2 Mg PO BID 08/20/17 Reported Zyloprim (Allopurinol) 100 Mg Tab 100 Mg PO QAM 08/20/17 Reported Jantoven (Warfarin Sodium) 5 Mg Tab 5 Mg PO 3XWK 08/20/17 Reported MON,WED,FRI Pulmicort Flexhaler (Budesonide (Inhalation)) 180 Mcg/Act Inh 2 Puffs INH BID 08/11/17 Reported Montelukast Sodium 10 Mg Tab 10 Mg PO HS 04/10/17 Reported Rocaltrol Cap (Calcitriol) 0.25 Mcg Cap 0.25 Mcg PO DAILY 07/30/16 Reported Toprol Xl (Metoprolol Succinate) 25 Mg Tabcr 12.5 Mg PO QAM 03/12/16 Reported Klonopin (Clonazepam) 0.5 Mg Tab 0.5 Mg PO HS 12/08/15 Reported Vytorin 10MG/40MG (Ezetimibe/Simvastatin) Tab 1 Tab PO HS 12/08/15 Reported Cymbalta (Duloxetine Hcl) 30 Mg Cap 30 Mg PO QAM 11/04/14 Reported Coumadin (Warfarin Sodium) 5 Mg Tab 2.5 Mg PO 4XWK 01/27/14 Reported SUN,TUES,THURS,SAT Trilipix (Choline Fenofibrate) 135 Mg Cap 135 Mg PO QAM 12/02/13 Reported Januvia (Sitagliptin Phosphate) 100 Mg Tab 100 Mg PO QAM 08/02/13 Reported Protonix (Pantoprazole Sodium) 40 Mg Tab 40 Mg PO QAM 04/21/13 Reported Reglan (Metoclopramide HCl) 10 Mg Tab 10 Mg PO QPM 09/28/09 Reported Nitrostat (Nitroglycerin) 0.4 Mg Tab 0.4 Mg UT UD PRN 09/28/09 Reported Aldactone (Spironolactone) 50 Mg Tab 50 Mg PO BID 09/28/09 Reported Imdur Ext Rel (Isosorbide Mononitrate) 30 Mg Ertab 90 Mg PO QAM 09/28/09 Reported 3 TABLET DOSAGE Review of Systems Constitutional: + fatigue, No fever, No chills Eyes: No problem reported ENT: No problem reported Respiratory: No cough, No shortness of breath Cardiac: No chest pain, No palpitations Abdomen: + see HPI Musculoskeletal: + swelling Female : No problem reported Neuro: No problem reported Psych: No problem reported Skin: No problem reported Physical Exam Date Time Temp Pulse Resp B/P (MAP) Pulse Ox O2 Delivery O2 Flow Rate FiO2 02/26/18 15:23 66 16 97 Room Air 02/26/18 12:00 100 Room Air 02/26/18 11:23 37.2 70 16 120/65 (83) 100 Room Air 02/26/18 11:08 70 16 96 Room Air 02/26/18 08:00 95 Room Air 02/26/18 07:26 69 16 97 Room Air 02/26/18 07:09 36.9 70 18 109/65 (80) 95 Room Air 02/26/18 05:30 36.8 71 16 128/82 (97) 92 Room Air 02/26/18 04:00 Room Air 02/26/18 00:00 Room Air 02/25/18 23:51 37.0 74 16 117/70 (86) 93 Room Air 02/25/18 20:30 Room Air 02/25/18 20:21 36.8 73 18 136/71 (92) 98 Room Air 02/25/18 20:11 71 16 95 Room Air 02/25/18 16:00 Room Air 02/25/18 15:55 37.0 76 18 127/74 (91) 95 Room Air General Appearance: no apparent distress Eyes: EOMI ENT: hearing grossly normal Neck: supple Respiratory/Chest: lungs clear, normal breath sounds, no respiratory distress Cardiovascular: regular rate, rhythm Abdomen: normal bowel sounds, soft, + tenderness (epigastric and RUQ tenderness ) Extremities: + swelling Neurologic/Psych: alert, normal mood/affect, oriented x 3 Skin: warm/dry Laboratory Results Last 24 Hours Test 02/25/18 16:13 02/25/18 16:19 02/25/18 16:33 02/25/18 17:00 Bedside Glucose 57 mg/dl 52 mg/dl 153 mg/dl Hemoglobin 11.4 g/dL Test 02/25/18 20:39 02/25/18 22:02 02/26/18 00:11 02/26/18 03:45 Bedside Glucose 116 mg/dl 87 mg/dl Hemoglobin 10.9 g/dL 10.4 g/dL Test 02/26/18 07:41 02/26/18 08:14 02/26/18 10:58 02/26/18 11:51 Bedside Glucose 52 mg/dl 145 mg/dl 96 mg/dl Hemoglobin 10.8 g/dL Hematocrit 33.2 % Prothrombin Time 13.3 SECONDS Prothromb Time International Ratio 1.3 Sodium Level 137 mmol/L Potassium Level 3.5 mmol/L Chloride Level 104 mmol/L Carbon Dioxide Level 29 mmol/L Anion Gap 4.0 mmol/L Blood Urea Nitrogen 37 mg/dl Creatinine 1.97 mg/dl Est Creatinine Clear Calc Drug Dose 26.9 ml/min Estimated GFR () 28.3 Estimated GFR (Non- 24.4 BUN/Creatinine Ratio 18.9 Random Glucose 96 mg/dl Calcium Level 7.9 mg/dl Impression Patient is a 72 year old female on chronic anticoagulation therapy due to history of atrial fibrillation admitted with hematemesis and acute blood loss anemia. Plan 1. Keep NPO. 2. Continue PPI ggt at 8 mg/hr. 3. EGD with Dr. Zambrano. 4. Additional recommendations pending results of testing. Thank you for allowing us to participate in the care of this pleasant patient. If you have any questions or concerns, please do not hesitate to contact us. Agree with MARGY Madera as above Abd: Soft, NT, ND, +BS Continue current therapy EGD today
--- NOTE | 2018-02-26 16:56 | GI REPORT ---
Patient Name: Beverley Baer Procedure Date: 02/26/2018 4:26 PM Date of : 1945 Admit Type: Inpatient Age: 72 Gender: Female Attending MD: Jose Alfredo Zambrano DO Procedure: Upper GI endoscopy Providers: Jose Alfredo Zambrano DO Referring MD: Akbar Jenkins Indications: Acute post hemorrhagic anemia, Melena Medicines: Monitored Anesthesia Care Complications: No immediate complications. Estimated Blood Loss: Estimated blood loss: none. Procedure: Pre-Anesthesia Assessment: - Prior to the procedure, a History and Physical was performed, and patient medications and allergies were reviewed. The patient's tolerance of previous anesthesia was also reviewed. The risks and benefits of the procedure and the sedation options and risks were discussed with the patient. All questions were answered, and informed consent was obtained. Prior Anticoagulants: The patient has taken Coumadin (warfarin), last dose was 2 days prior to procedure. ASA Grade Assessment: IV - A patient with severe systemic disease that is a constant threat to life. After reviewing the risks and benefits, the patient was deemed in satisfactory condition to undergo the procedure. After obtaining informed consent, the endoscope was passed under direct vision. Throughout the procedure, the patient's blood pressure, pulse, and oxygen saturations were monitored continuously. The Scope was introduced through the mouth, and advanced to the third part of duodenum. The upper GI endoscopy was accomplished without difficulty. The patient tolerated the procedure well. Findings: Severe esophagitis with no bleeding was found. A medium-sized hiatal hernia was present. Localized mild inflammation characterized by erosions was found in the gastric antrum. The examined duodenum was normal. Impression: - Severe erosive esophagitis. - Medium-sized hiatal hernia. - Gastritis. - Normal examined duodenum. - No specimens collected. Recommendation: - Return patient to [facility] for [facility] care. - Advance diet as tolerated. - OK to stop Protonix gtt. - Start Protonix 40mg by mouth 1/2 hour prior to breakfast and dinner. Jose Alfredo Zambrano DO 02/26/2018 4:56:21 PM This report has been signed electronically. Note Initiated On: 02/26/2018 4:26 PM Number of Addenda: 0 I attest to the content of the Intraoperative Record and orders documented therein, exceptions below {[id number]}
--- NOTE | 2018-02-26 17:04 | Anesthesiology Progress Note ---
Anesthesia Post Op Note Date & Time February 26, 2018 at 17:04 Vital Signs Pain Intensity: 0.0 Vital Signs Past 12 Hours Date Time Temp Pulse Resp B/P (MAP) Pulse Ox O2 Delivery O2 Flow Rate FiO2 02/26/18 16:24 37.6 77 20 133/50 (77) 95 Room Air 02/26/18 15:56 37.2 75 18 112/64 (80) 95 Room Air 02/26/18 15:23 66 16 97 Room Air 02/26/18 12:00 100 Room Air 02/26/18 11:23 37.2 70 16 120/65 (83) 100 Room Air 02/26/18 11:08 70 16 96 Room Air 02/26/18 08:00 95 Room Air 02/26/18 07:26 69 16 97 Room Air 02/26/18 07:09 36.9 70 18 109/65 (80) 95 Room Air 02/26/18 05:30 36.8 71 16 128/82 (97) 92 Room Air Notes Mental Status: alert / awake / arousable, participated in evaluation Pt Amnestic to Procedure: Yes Nausea / Vomiting: adequately controlled Pain: adequately controlled Airway Patency, RR, SpO2: stable & adequate BP & HR: stable & adequate Hydration State: stable & adequate Anesthetic Complications: no major complications apparent
[2018-02-26] MEDS: ACETAMINOPHEN 325 MG TAB PO PRN (17:37)
[2018-02-26] MEDS: METOCLOPRAMIDE HCL 10 MG TAB PO SCH (17:37)
[2018-02-26] MEDS: MONTELUKAST SOD 10 MG TAB PO SCH (21:18)
[2018-02-26] MEDS: CLONAZEPAM 0.5 MG TAB PO SCH (21:18)
[2018-02-26] MEDS: INSULIN GLARGINE SOLOSTAR 100 UNITS/ML 3 ML PEN SC SCH (21:21)
[2018-02-27] VITALS (9 sets, daily range): BP systolic 111–156; BP diastolic 63–72; PULSE 60–73; TEMP 36–37.2; O2SAT 94–100
[2018-02-27] MEDS: PANTOprazole INJ 40 MG in DEXTROSE 5% 100ML IV SCH ×3 (02:18→08:19)
[2018-02-27] MEDS: LEVOTHYROXINE 50 MCG TAB PO SCH (05:13)
[2018-02-27] MEDS: INSULIN ASPART 100 UNITS/ML 3 ML PEN SC SCH ×4 (06:30→20:30)
[2018-02-27] MEDS: ALBUT/IPRATROP 3MG/0.5MG NEB 3 ML VIAL INH SCH ×4 (07:03→19:55)
[2018-02-27] MEDS: ACETAMINOPHEN 325 MG TAB PO PRN ×2 (08:18→20:28)
[2018-02-27] MEDS: DULOXETINE (CYMBALTA) 30 MG CAP PO SCH (08:18)
[2018-02-27] MEDS: ISOSORBIDE MONONITRATE 30 MG TABCR PO SCH (08:19)
[2018-02-27] MEDS: METOPROLOL SUCC 25MG EXT REL TAB PO SCH (08:19)
[2018-02-27] MEDS: CALCITRIOL 0.25 MCG CAP PO SCH (08:19)
[2018-02-27 08:48] LABS: HEMATOCRIT 31.5 % (37-47); HEMOGLOBIN 10.2 g/dL (12.0-16.0)
[2018-02-27 09:19] LABS: CALCIUM 7.5 mg/dl (8.5-10.1); CREATININE 1.85 mg/dl (0.60-1.20); POTASSIUM 3.5 mmol/L (3.5-5.1)
--- NOTE | 2018-02-27 10:28 | Gastroenterology Progress Note ---
Progress Note Date of Service: February 27, 2018 Subjective Pt evaluation today including: conversation w/ patient, physical exam, chart review, lab review, review of inpatient medication list Patient reports feeling well today. No further GI bleeding. Tolerating clear liquid diet. Reports mild epigastric tenderness. No nausea or vomiting or other GI complaints. EGD yesterday with severe esophagitis, gastritis and medium hiatus hernia. Continues PPI ggt. Review of Systems Constitutional: No problem reported Respiratory: No problem reported Cardiac: No problem reported Abdomen: + see HPI Medications Current Inpatient Medications Medications (Trade) Dose Ordered Sig/Benito Route Start Time Stop Time Status Last Admin Dose Admin Calcitriol (Rocaltrol Cap) 0.25 mcg DAILY PO 02/26/18 09:00 03/28/18 08:59 02/27/18 08:19 0.25 MCG Clonazepam (Klonopin Tab) 0.5 mg HS PO 02/25/18 21:00 03/27/18 20:59 02/26/18 21:18 0.5 MG Duloxetine HCl (Cymbalta Cap) 30 mg QAM PO 02/26/18 09:00 03/28/18 08:59 02/27/18 08:18 30 MG Insulin Glargine (Lantus Solostar Pen) 50 units HS SC 02/25/18 21:00 03/27/18 20:59 02/26/18 21:21 50 UNITS Albuterol/ Ipratropium (Duoneb) 1 ml QIDR INH 02/25/18 16:00 03/27/18 15:59 02/27/18 07:03 1 ML Isosorbide Mononitrate (Imdur Ext Rel Tab) 90 mg QAM PO 02/26/18 09:00 03/28/18 08:59 02/27/18 08:19 90 MG Levothyroxine Sodium (Synthroid Tab) 50 mcg DAILYBB PO 02/26/18 06:30 03/28/18 06:59 02/27/18 05:13 50 MCG Metoclopramide HCl (Reglan Tab) 10 mg QDD PO 02/25/18 17:00 03/27/18 17:59 02/26/18 17:37 10 MG Montelukast Sodium (Singulair Tab) 10 mg HS PO 02/25/18 21:00 03/27/18 20:59 02/26/18 21:18 10 MG Miscellaneous Information (Order Awaiting Action) 1 ea QS N/A 02/25/18 16:00 03/27/18 15:59 Acetaminophen (Tylenol Tab) 650 mg Q4H PRN PO 02/25/18 15:00 03/27/18 14:59 02/27/18 08:18 650 MG Ondansetron HCl (Zofran Inj) 4 mg Q6H PRN IV 02/25/18 15:00 03/27/18 14:59 Morphine Sulfate (MoRPHine SULFATE INJ) 2 mg Q30M PRN IV 02/25/18 15:00 03/11/18 14:59 02/27/18 04:20 2 MG Insulin Aspart (novoLOG ASPART) SLIDING SCALE G... ACHS SC 02/25/18 16:00 03/27/18 15:59 02/26/18 21:21 1 UNITS Glucose (Glucose 40% Gel) 15-30 GRAMS 15 GRAMS... UD PRN PO 02/25/18 15:30 03/27/18 15:29 02/25/18 16:20 15 GM Glucose (Glucose Chew Tab) 4-8 Tablets 4 Tabl... UD PRN PO 02/25/18 15:30 03/27/18 15:29 Dextrose (Dextrose 50% 50ML Syringe) 25-50ML 25ML FOR ... UD PRN IV 02/25/18 15:30 03/27/18 15:29 02/26/18 07:49 50 ML Glucagon (Glucagon Inj) 1 mg UD PRN IM 02/25/18 15:30 03/27/18 15:29 Carbohydrates (Carbohydrates For Hypoglycemia) 15-30 GRAMS 15 grams if BSG 54-69... UD PRN PO 02/25/18 15:30 03/27/18 15:29 Potassium Chloride/Dextrose/ Sod Cl 1,000 ml @ 75 mls/hr [id number] IV 02/26/18 08:30 03/28/18 08:29 02/26/18 23:32 75 MLS/HR Metoprolol Succinate (Toprol Xl Tab) 25 mg QAM PO 02/27/18 09:00 03/28/18 08:59 02/27/18 08:19 25 MG Pantoprazole Sodium (Protonix Tab) 40 mg BID PO 02/27/18 21:00 03/29/18 20:59 UNV Objective Vital Signs Date Time Temp Pulse Resp B/P (MAP) Pulse Ox O2 Delivery O2 Flow Rate FiO2 02/27/18 07:18 37.2 60 16 134/63 (86) 94 Room Air 02/27/18 07:03 64 16 96 Room Air 02/27/18 04:00 Room Air 02/27/18 04:00 37.0 67 18 132/68 (89) 98 Room Air 02/27/18 00:00 Room Air 02/26/18 23:50 37.0 67 18 124/71 (88) 94 Room Air 02/26/18 20:00 Room Air 02/26/18 19:50 37.0 87 18 168/84 (112) 94 Room Air 02/26/18 19:38 68 16 96 Room Air 02/26/18 18:00 37.3 80 12 138/71 (93) 92 Room Air 02/26/18 17:23 72 20 114/44 (67) 97 Room Air 02/26/18 17:10 73 20 104/42 (62) 97 Room Air 02/26/18 16:52 76 20 97/40 (59) 97 Room Air 02/26/18 16:24 37.6 77 20 133/50 (77) 95 Room Air 02/26/18 16:00 Room Air 02/26/18 15:56 37.2 75 18 112/64 (80) 95 Room Air 02/26/18 15:23 66 16 97 Room Air 02/26/18 12:00 100 Room Air 02/26/18 11:23 37.2 70 16 120/65 (83) 100 Room Air 02/26/18 11:08 70 16 96 Room Air Physical Exam General Appearance: no apparent distress Eyes: EOMI ENT: hearing grossly normal Respiratory/Chest: lungs clear, normal breath sounds, no respiratory distress Cardiovascular: regular rate, rhythm Abdomen: normal bowel sounds, soft, + tenderness (epigastric) Neurologic/Psych: alert, normal mood/affect, oriented x 3 Skin: warm/dry Laboratory Results Last 24 Hours Test 02/26/18 10:58 02/26/18 11:51 02/26/18 16:11 5/17/18 20:26 Hemoglobin 10.8 g/dL Hematocrit 33.2 % Prothrombin Time 13.3 SECONDS Prothromb Time International Ratio 1.3 Sodium Level 137 mmol/L Potassium Level 3.5 mmol/L Chloride Level 104 mmol/L Carbon Dioxide Level 29 mmol/L Anion Gap 4.0 mmol/L Blood Urea Nitrogen 37 mg/dl Creatinine 1.97 mg/dl Est Creatinine Clear Calc Drug Dose 26.9 ml/min Estimated GFR () 28.3 Estimated GFR (Non- 24.4 BUN/Creatinine Ratio 18.9 Random Glucose 96 mg/dl Calcium Level 7.9 mg/dl Bedside Glucose 96 mg/dl 101 mg/dl 171 mg/dl Test 02/27/18 08:00 02/27/18 08:30 Bedside Glucose 88 mg/dl Hemoglobin 10.2 g/dL Hematocrit 31.5 % Sodium Level 140 mmol/L Potassium Level 3.5 mmol/L Chloride Level 108 mmol/L Carbon Dioxide Level 26 mmol/L Anion Gap 6.0 mmol/L Blood Urea Nitrogen 30 mg/dl Creatinine 1.85 mg/dl Est Creatinine Clear Calc Drug Dose 28.7 ml/min Estimated GFR () 30.6 Estimated GFR (Non- 26.4 BUN/Creatinine Ratio 15.9 Random Glucose 128 mg/dl Calcium Level 7.5 mg/dl Assessment and Plan Patient is a 72 year old female on chronic anticoagulation therapy due to history of atrial fibrillation admitted with hematemesis and acute blood loss anemia. 1. Stop PPI ggt. 2. Start Pantoprazole 40 mg PO BID. 3. Advance diet as tolerated. 4. Patient is stable for discharge from GI standpoint when cleared by primary medicine. Agree with MARGY Madera as above Abd: Soft, NT, ND, +BS Doing much better today, eating clears at bedside today Continue PPI twice daily Advance diet as tolerated
[2018-02-27] MEDS: D5NSS + 20MEQ KCL 1,000 ML IV SCH (12:06)
--- NOTE | 2018-02-27 15:38 | Progress Note ---
Subjective Date of Service: February 27, 2018. Subjective Pt evaluation today including: conversation w/ patient, physical exam, lab review, review of studies, review of inpatient medication list Pain: no pain PO Intake: NPO for scope Voiding: no voiding problems patient tolerated EGD well, no complications showed gastritis, esophagitis, no ulcers GI recommends PPI BID, advance diet discussed with patient labs show Hb stable at 10.2, Cr stable at 1.8 reviewed therapy notes, can go home with home health d/c tomorrow Problem List Medical Problems: (1) Dyspnea Status: Acute (2) Elevated troponin Status: Acute (3) Renal insufficiency Status: Acute Review of Systems Constitutional: + weakness All Other Systems: Reviewed and Negative Medications Current Inpatient Medications Medications (Trade) Dose Ordered Sig/Benito Route Start Time Stop Time Status Last Admin Dose Admin Calcitriol (Rocaltrol Cap) 0.25 mcg DAILY PO 02/26/18 09:00 03/28/18 08:59 02/27/18 08:19 0.25 MCG Clonazepam (Klonopin Tab) 0.5 mg HS PO 02/25/18 21:00 03/27/18 20:59 02/26/18 21:18 0.5 MG Duloxetine HCl (Cymbalta Cap) 30 mg QAM PO 02/26/18 09:00 03/28/18 08:59 02/27/18 08:18 30 MG Insulin Glargine (Lantus Solostar Pen) 50 units HS SC 02/25/18 21:00 03/27/18 20:59 02/26/18 21:21 50 UNITS Isosorbide Mononitrate (Imdur Ext Rel Tab) 90 mg QAM PO 02/26/18 09:00 03/28/18 08:59 02/27/18 08:19 90 MG Levothyroxine Sodium (Synthroid Tab) 50 mcg DAILYBB PO 02/26/18 06:30 03/28/18 06:59 02/27/18 05:13 50 MCG Metoclopramide HCl (Reglan Tab) 10 mg QDD PO 02/25/18 17:00 03/27/18 17:59 02/26/18 17:37 10 MG Montelukast Sodium (Singulair Tab) 10 mg HS PO 02/25/18 21:00 6/15/18 20:59 02/26/18 21:18 10 MG Miscellaneous Information (Order Awaiting Action) 1 ea QS N/A 02/25/18 16:00 03/27/18 15:59 Acetaminophen (Tylenol Tab) 650 mg Q4H PRN PO 02/25/18 15:00 03/27/18 14:59 02/27/18 08:18 650 MG Ondansetron HCl (Zofran Inj) 4 mg Q6H PRN IV 02/25/18 15:00 03/27/18 14:59 Morphine Sulfate (MoRPHine SULFATE INJ) 2 mg Q30M PRN IV 02/25/18 15:00 03/11/18 14:59 02/27/18 04:20 2 MG Insulin Aspart (novoLOG ASPART) SLIDING SCALE G... ACHS SC 02/25/18 16:00 03/27/18 15:59 02/27/18 12:11 1 UNITS Glucose (Glucose 40% Gel) 15-30 GRAMS 15 GRAMS... UD PRN PO 02/25/18 15:30 03/27/18 15:29 02/25/18 16:20 15 GM Glucose (Glucose Chew Tab) 4-8 Tablets 4 Tabl... UD PRN PO 02/25/18 15:30 03/27/18 15:29 Dextrose (Dextrose 50% 50ML Syringe) 25-50ML 25ML FOR ... UD PRN IV 02/25/18 15:30 03/27/18 15:29 02/26/18 07:49 50 ML Glucagon (Glucagon Inj) 1 mg UD PRN IM 02/25/18 15:30 03/27/18 15:29 Carbohydrates (Carbohydrates For Hypoglycemia) 15-30 GRAMS 15 grams if BSG 54-69... UD PRN PO 02/25/18 15:30 03/27/18 15:29 Metoprolol Succinate (Toprol Xl Tab) 25 mg QAM PO 02/27/18 09:00 03/28/18 08:59 02/27/18 08:19 25 MG Pantoprazole Sodium (Protonix Tab) 40 mg BID PO 02/27/18 21:00 03/29/18 20:59 Albuterol/ Ipratropium (Duoneb) 3 ml QIDR INH 02/27/18 16:00 03/29/18 15:59 Bumetanide (Bumex Tab) 2 mg BID17 PO 02/27/18 17:00 03/29/18 16:59 Spironolactone (Aldactone Tab) 50 mg BID17 PO 02/27/18 17:00 03/29/18 16:59 Objective Vital Signs Date Time Temp Pulse Resp B/P (MAP) Pulse Ox O2 Delivery O2 Flow Rate FiO2 02/27/18 15:08 36.8 64 20 127/70 (89) 100 Room Air 02/27/18 12:12 37.1 73 18 111/67 (82) 96 Room Air 02/27/18 12:00 Room Air 02/27/18 11:03 71 16 96 Room Air 02/27/18 08:00 Room Air 02/27/18 07:18 37.2 60 16 134/63 (86) 94 Room Air 02/27/18 07:03 64 16 96 Room Air 02/27/18 04:00 Room Air 02/27/18 04:00 37.0 67 18 132/68 (89) 98 Room Air 02/27/18 00:00 Room Air 02/26/18 23:50 37.0 67 18 124/71 (88) 94 Room Air 02/26/18 20:00 Room Air 02/26/18 19:50 37.0 87 18 168/84 (112) 94 Room Air 02/26/18 19:38 68 16 96 Room Air 02/26/18 18:00 37.3 80 12 138/71 (93) 92 Room Air 02/26/18 17:23 72 20 114/44 (67) 97 Room Air 02/26/18 17:10 73 20 104/42 (62) 97 Room Air 02/26/18 16:52 76 20 97/40 (59) 97 Room Air 02/26/18 16:24 37.6 77 20 133/50 (77) 95 Room Air 02/26/18 16:00 Room Air 02/26/18 15:56 37.2 75 18 112/64 (80) 95 Room Air Physical Exam General Appearance: no apparent distress, + obese Eyes: normal inspection, EOMI, sclerae normal ENT: normal ENT inspection, hearing grossly normal, pharynx normal Neck: supple, no adenopathy, no JVD, trachea midline Respiratory/Chest: chest non-tender, lungs clear, normal breath sounds, no respiratory distress, no accessory muscle use Cardiovascular: regular rate, rhythm, no edema, no gallop, no JVD, no murmur Abdomen: normal bowel sounds, non tender, soft, no organomegaly Extremities: normal range of motion, non-tender, normal inspection, no pedal edema, no calf tenderness, pelvis stable 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, no motor/sensory deficits, alert, normal mood/affect, oriented x 3 Skin: normal color, warm/dry, no rash Laboratory Results Last 24 Hours Test 02/26/18 16:11 02/26/18 20:26 02/27/18 08:00 02/27/18 08:30 Bedside Glucose 101 mg/dl 171 mg/dl 88 mg/dl Hemoglobin 10.2 g/dL Hematocrit 31.5 % Sodium Level 140 mmol/L Potassium Level 3.5 mmol/L Chloride Level 108 mmol/L Carbon Dioxide Level 26 mmol/L Anion Gap 6.0 mmol/L Blood Urea Nitrogen 30 mg/dl Creatinine 1.85 mg/dl Est Creatinine Clear Calc Drug Dose 28.7 ml/min Estimated GFR () 30.6 Estimated GFR (Non- 26.4 BUN/Creatinine Ratio 15.9 Random Glucose 128 mg/dl Calcium Level 7.5 mg/dl Test 02/27/18 12:03 Bedside Glucose 173 mg/dl Assessment and Plan 72 y/o F Hx TAMMIE, asthma/COPD, CKD IV, HTN, hypothyroidism, DM II, HPL, chronic diastolic grade I diastolic CHF, morbid obesity, epiglottic and subepiglottic tracheal stenosis. The pt recently required hospitalization for Laryngeal edema and COPD exacerbation which followed a bronchoscopy and treatment with Xomed for glottic stenosis. The pt states that beginning earlier today, she developed lower abdominal pain, nausea and then had several bouts of dark colored emesis. She also describes dark colored stool over the past few days. She denies fevers, CP, SOB or lightheadedness. - Possible GI bleed: reported dark (black) vomiting and dark stools EGD on 02/27 showed gastritis, esophagitis, no active bleeding increase PPI to BID from daily Hb down to 10.2 from 11.9 on admission, no signs of active/brisk bleeding, vitals stable INR reversed, will hold Coumadin for one week total - Acute blood loss anemia: mild, only down to 10.2 from 11.9 will repeat tomorrow AM - Hypoglycemia with DM type II increase Lantus to 50 units BID since she can eat this evening Novolog SS d/c dextrose in fluids - Paroxysmal atrial fibrillation continue Toprol but increase dose to 25mg due to some tachycardia holding Coumadin with possible bleed, INR reversed plan to resume Coumadin in one week - Chronic diastolic heart failure: examines euvolemic stop fluids today, resume Bumex tonight - CKD stage IV: Cr stable at 1.8, continue to monitor - COPD: lungs clear, no wheezing, no distress - Recent treatment for epiglottic and sub epiglottic stenosis no wheezing or stridor on exam, breathing comfortably cleared to go home by PT/OT d/c to home tomorrow AM with home health
[2018-02-27] MEDS: METOCLOPRAMIDE HCL 10 MG TAB PO SCH (17:09)
[2018-02-27] MEDS: BUMETANIDE 1 MG TAB PO SCH (18:10)
[2018-02-27] MEDS: SPIRONOLACTONE 100 MG TAB PO SCH (18:11)
[2018-02-27] MEDS: MONTELUKAST SOD 10 MG TAB PO SCH (20:26)
[2018-02-27] MEDS: PANTOprazole SOD 40 MG TAB PO SCH (20:26)
[2018-02-27] MEDS: CLONAZEPAM 0.5 MG TAB PO SCH (20:28)
[2018-02-27] MEDS: INSULIN GLARGINE SOLOSTAR 100 UNITS/ML 3 ML PEN SC SCH (20:31)
[2018-02-28] VITALS (7 sets, daily range): BP systolic 120–142; BP diastolic 67–69; PULSE 65–81; TEMP 36.9–37; O2SAT 95–98
[2018-02-28] MEDS ORDERED: PRT40 PO (05:45)
[2018-02-28] MEDS ORDERED: TPRSR25 PO (05:45)
--- NOTE | 2018-02-28 05:49 | Discharge Instructions ---
Discharge Instructions Date of Service February 28, 2018. Admission Reason for Admission: Gi Bleed Discharge Discharge Diagnosis / Problem: GI bleed due to gastritis, Coumadin use Discharge Goals Goal(s): Improve function, Improve disease control Activity Recommendations Activity Limitations: resume your previous activity . Instructions / Follow-Up Instructions / Follow-Up Medications: - PROTONIX: increased to twice a day, take this twice a day for 6 weeks then you can reduce back to daily, take 30 minutes prior to breakfast and dinner - TOPROL: dose increased to 25mg daily from 12.5mg, this was due to bursts of atrial fibrillation and mild tachycardia GI bleed due to gastritis: EGD showed gastritis, esophagitis, no active bleeding , no ulcers will treat with increased dose of Protonix please hold Coumadin until 03/02 and can then resume prior dosing Atrial fibrillation: had bouts of rapid heart rate, for this reason your Toprol was increased heart rates have been in the 60's and 70's PT/OT cleared you to return home with home health services FOLLOW UP - call for appointment with Alfred Mckeon to be seen in one week Current Hospital Diet Patient's current hospital diet: Diabetes Type 2 Diet, AHA Diet (Heart Healthy) Discharge Diet Recommended Diet: AHA Diet (Heart Healthy), Diabetes Type 2 Diet Procedures Procedures Performed: EGD Pending Studies Studies pending at discharge: no Laboratory Results Hemoglobin A1c Test 12/25/17 08:14 Range/Units Estimated Average Glucose 229 mg/dl Hemoglobin A1c 9.6 H 4.5-5.6 % Medical Emergencies . Who to Call and When: Medical Emergencies: If at any time you feel your situation is an emergency, please call 911 immediately. . Non-Emergent Contact Non-Emergency issues call your: Primary Care Provider Call Non-Emergent contact if: you have any medication questions . . "Provider Documentation" section prepared by Akbar Jenkins. . [place] Drug Monitoring Program Search Results: no issues identified
[2018-02-28] MEDS: LEVOTHYROXINE 50 MCG TAB PO SCH (06:14)
[2018-02-28] MEDS: INSULIN ASPART 100 UNITS/ML 3 ML PEN SC SCH (06:30)
[2018-02-28] MEDS: ALBUT/IPRATROP 3MG/0.5MG NEB 3 ML VIAL INH SCH ×2 (07:02→11:23)
[2018-02-28] MEDS: ISOSORBIDE MONONITRATE 30 MG TABCR PO SCH (09:14)
[2018-02-28] MEDS: SPIRONOLACTONE 100 MG TAB PO SCH (09:14)
[2018-02-28] MEDS: METOPROLOL SUCC 25MG EXT REL TAB PO SCH (09:14)
[2018-02-28] MEDS: PANTOprazole SOD 40 MG TAB PO SCH (09:14)
[2018-02-28] MEDS: DULOXETINE (CYMBALTA) 30 MG CAP PO SCH (09:14)
[2018-02-28] MEDS: CALCITRIOL 0.25 MCG CAP PO SCH (09:14)
[2018-02-28] MEDS: BUMETANIDE 1 MG TAB PO SCH (09:15)
--- NOTE | 2018-03-01 09:32 | Discharge Summary ---
Discharge Summary Date of Service February 28, 2018. Discharge Summary Admission Date: February 25, 2018 at 14:55 Discharge Date: February 28, 2018 Discharge Disposition: Home with services Principal Diagnosis: GI bleed, gastritis Problems/Secondary Diagnoses: Acute blood loss anemia Atrial flutter on Coumadin DM type II with hypoglycemia CKD stage IV Chronic diastolic heart failure Immunizations: Have You Had Influenza Vaccine: No History of Tetanus Vaccine?: No History of Pneumococcal: No History of Hepatitis B Vaccine: No Procedures: EGD - esophagitis and gastritis, no ulcers, no active bleeding Consultations: Gastroenterology Medication Reconciliation New Medications: Metoprolol Succinate (Metoprolol Succinate ER) 25 Mg Tabcr 25 MG PO QAM, #30 TABS 3 Refills Pantoprazole (Pantoprazole Sodium) 40 Mg Tab 40 MG PO BID, #60 TAB 3 Refills Continued Medications: Albuterol Sulfate (Proair Respiclick) 108 Mcg/Act Aer 2 PUFFS INH Q4H PRN for SOB/Wheezing Allopurinol (Zyloprim) 100 Mg Tab 100 MG PO QAM Azelastine Hcl (Astepro) 0.15 % Spr 2 SPRY BRIAN BID Budesonide (Inhalation) (Pulmicort Flexhaler) 180 Mcg/Act Inh 2 PUFFS INH BID Bumetanide (Bumex) 2 Mg Tab 2 MG PO BID Calcitriol (Rocaltrol Cap) 0.25 Mcg Cap 0.25 MCG PO DAILY Choline Fenofibrate (Trilipix) 135 Mg Cap 135 MG PO QAM Clonazepam (Klonopin) 0.5 Mg Tab 0.5 MG PO HS, TAB Docusate Sodium (Docusate Sodium) 100 Mg Cap 100 MG PO QID Duloxetine Hcl (Cymbalta) 30 Mg Cap 30 MG PO QAM, CAP Ergocalciferol (Vitamin D 74310 Unit) 50,000 Unit Cap 1 TAB PO MONTHLY Ezetimibe/Simvastatin (Vytorin 10MG/40MG) Tab 1 TAB PO HS Insulin Aspart (Novolog) 100 Units/Ml Inj 5 UNITS SC AC +SLIDING SCALE Insulin Glargine (Basaglar Kwikpen) 100 Unit/Ml Inj 50 SC BID Ipratropium-Albuterol (Duoneb) 3 Ml Nebu 1 TREATMENT INH QID Isosorbide Mononitrate Ext Rel (Imdur Ext Rel) 30 Mg Ertab 90 MG PO QAM 3 TABLET DOSAGE Levothyroxine Sodium (Levothyroxine Sodium) 50 Mcg Tab 50 MCG PO QAM Metoclopramide (Reglan) 10 Mg Tab 10 MG PO QPM Montelukast Sodium (Montelukast Sodium) 10 Mg Tab 10 MG PO HS Nitroglycerin (Nitrostat) 0.4 Mg Tab 0.4 MG UT UD PRN for Chest Pain Sitagliptin Phosphate (Januvia) 100 Mg Tab 100 MG PO QAM, TAB Spironolactone (Aldactone) 50 Mg Tab 50 MG PO BID Tiotropium [place] (Spiriva Handihaler) 30 Puff/540 Mcg Aerp 1 CAP INH QAM Warfarin Sod (Jantoven) 5 Mg Tab 5 MG PO 3XWK MON,WED,FRI Warfarin Sodium (Coumadin) 5 Mg Tab 2.5 MG PO 4XWK, TAB SUN,TU,THURS,SAT Discontinued Medications: Metoprolol Succinate (Toprol Xl) 25 Mg Tabcr 12.5 MG PO QAM Pantoprazole (Protonix) 40 Mg Tab 40 MG PO QAM Discharge Exam Patient feeling well on day of discharge, felt like breathing was just slightly heavier than the day before, discussed that we had just resumed her Bumex the evening prior, has been holding due to NPO status and bleeding. Lungs were clear on exam. Her oxygen levels were stable. Discussed plan to go home with home health. Discussed medication changes of increasing Protonix to BID and increasing Toprol to 25mg. Discussed continuing to hold Coumadin until 03/02 and then resume prior dosing. Review of Systems: Constitutional: No fever, No chills, No sweats, No weight loss, No weakness , No fatigue, No problem reported Eyes: No worsening of vision, No eye pain, No redness, No discharge, No diplopia, No problem reported ENT: No hearing loss, No unusual epistaxis, No nasal symptoms, No sore throat, No tinnitus, No dental problems, No trouble swallowing, No problem reported Respiratory: + dyspnea on exertion (very mild), No cough, No sputum, No wheezing, No shortness of breath, No dyspnea at rest, No hemoptysis, No problem reported Cardiovascular: No chest pain, No orthopnea, No PND, No edema, No claudication, No palpitations, No problem reported Abdomen: No pain, No nausea, No vomiting, No diarrhea, No constipation, No GI bleeding, No problem reported Musculoskeletal: No joint pain, No muscle pain, No swelling, No calf pain, No problem reported Genitourinary - Female: No dysuria, No urinary frequency, No urinary urgency , No urinary incontinence, No urinary retention, No hematuria Neurologic: No memory loss, No paralysis, No weakness, No numbness/tingling , No vertigo, No balance problems, No problem reported Psychiatric: No depression symptoms, No anhedonism, No anxiety, No insomnia , No substance abuse, No problem reported Endocrine: No fatigue, No excessive thirst, No excessive urination, No problem reported Hematologic / Lymphatic: No abnormal bleeding/bruising, No clotting problems , No swollen lymph nodes, No night sweats, No problem reported Integumentary: No rash, No itch, No new/changing skin lesions, No color change, No bleeding, No problem reported Physical Exam: General Appearance: no apparent distress, + obese Eyes: normal inspection, EOMI, sclerae normal ENT: normal ENT inspection, hearing grossly normal, pharynx normal Neck: supple, no adenopathy, no JVD, trachea midline Respiratory/Chest: chest non-tender, lungs clear, normal breath sounds, no respiratory distress, no accessory muscle use Cardiovascular: regular rate, rhythm, no edema, no gallop, no JVD, no murmur , normal peripheral pulses Abdomen / GI: normal bowel sounds, non tender, soft, no organomegaly Extremities: normal inspection, no calf tenderness, normal capillary refill , no pedal edema, normal range of motion, pelvis stable 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 The pt recently required hospitalization for Laryngeal edema and COPD exacerbation which followed a bronchoscopy and treatment with Xomed for glottic stenosis. The pt states that beginning earlier today, she developed lower abdominal pain, nausea and then had several bouts of dark colored emesis. She also describes dark colored stool over the past few days. She denies fevers, CP, SOB or lightheadedness. - Possible GI bleed: reported dark (black) vomiting and dark stools EGD on 02/27 showed gastritis, esophagitis, no active bleeding increase PPI to BID from daily, will continue Protonix 30 minutes prior to breakfast and dinner for 6 weeks, can then resume daily dosing Hb down to 10.2 from 11.9 on admission, never dropped further, no signs of active/brisk bleeding, vitals stable INR reversed, will hold Coumadin until 03/02 and then resume - Acute blood loss anemia: mild, only down to 10.2 from 11.9 - Hypoglycemia with DM type II - hypoglycemia event was due to NPO status and evening lantus the day of admission no further episodes after reducing Lantus to 25 units BID and adding dextrose to fluids increase Lantus back to 50 units BID since she can eat Novolog SS - Paroxysmal atrial fibrillation continue Toprol but increased dose to 25mg due to some tachycardia on monitor , highest rate was 130 holding Coumadin with possible bleed, INR reversed plan to resume Coumadin 03/02 will continue increased dose of Toprol at 25mg on discharge - Chronic diastolic heart failure: examines euvolemic throughout admission resume Bumex BID - CKD stage IV: Cr stable at 1.8, continue to monitor - COPD: lungs clear, no wheezing, no distress - Recent treatment for epiglottic and sub epiglottic stenosis no wheezing or stridor on exam entire admission, breathing comfortably cleared to go home with services by PT/OT d/c to home on 02/28 Total Time Spent: Greater than 30 minutes This includes examination of the patient, discharge planning, medication reconciliation, and communication with other providers. Discharge Instructions Please refer to the electronic Patient Visit Report (Discharge Instructions) for additional information. Follow-Up Alfred Mckeon in one week Additional Copies To Jose Alfredo Zambrano D.O.; Alfred Mckeon III, CRNP
== END 2018-02-28 12:05 | disposition home health service (06) | DRG 378 ==
LOC: EDBD 10:15 → C.EDC 10:16 → C.MED 14:55 → ENRESERV 15:05
PROVIDERS: ADMIT Internal Medicine; ATTEND Internal Medicine
PROC: 0DJ08ZZ Inspection of Upper Intestinal Tract, Via Natural or Artificial Opening Endoscopic (ICD-10-PCS; principal; 2018-02-26 16:30)
DX: K92.2 Gastrointestinal hemorrhage, unspecified (principal); N18.4 Chronic kidney disease, stage 4 (severe); I50.32 Chronic diastolic (congestive) heart failure; Z68.41 Body mass index [BMI] 40.0-44.9, adult; D62 Acute posthemorrhagic anemia; G47.33 Obstructive sleep apnea (adult) (pediatric); J45.909 Unspecified asthma, uncomplicated; J44.9 Chronic obstructive pulmonary disease, unspecified; I10 Essential (primary) hypertension; E03.9 Hypothyroidism, unspecified; E11.9 Type 2 diabetes mellitus without complications; E78.5 Hyperlipidemia, unspecified; E66.01 Morbid (severe) obesity due to excess calories; Z79.4 Long term (current) use of insulin; Z79.01 Long term (current) use of anticoagulants

== ENCOUNTER → 2018-05-12 | Day surgery (SDC) | payer BC ==
[~2018-05-12] VITALS: Ht 153 cm; Wt 98.0 kg
[~2018-05-12] MED LIST changes: -ALBU18002 INH; -BUDE180I INH; +CIPR1TAB11 PO; -CLON0.5T3 PO; -DOCU100C31 PO; +FENTANYL CITRATE INJ 50 MCG/1 ML 2 ML VIAL IV ONE; -IPRASOL4 INH; +KFL/250 PO; +KLN/5 PO; +LIDOCAINE 4% INH SOLN 4 ML BTL TOP ONE; +LIDOCAINE HCL 2% LOCAL 50ML VIAL INSTIL ONE; +LIDOCAINE VISCOUS 2% 100ML TOP ONE; +MCRK20 PO; +MIDAZOLAM HCL 5 MG/ML 1 ML VIAL IV ONE; +NURSING VERBAL MED ORDER ONE; +OXYC-57 PO; +POTA-639 PO; +SODIUM CHLORIDE 0.9% 1000ML 500 ML IV SCH; -SPRIN/30 INH; +TPRSR25 PO
--- NOTE | 2018-05-12 07:27 | History and Physical ---
History & Physical Date of Service May 12, 2018. History & Physical 72-year-old female here for follow-up of tracheal stenosis here for bronchoscopic evaluation: The patient presents with her sister today notes her breathing status is greatly improved. She continues to use her CPAP device at night. She did required admission to the [facility] from 02/25/2018 through 02/28/2018 and was diagnosed with GI bleeding, gastritis, esophagitis and had some anemia at that time. Today though she notes in no signs of lower GI bleed and denies any severe GERD are stomach upset. She also denies productive cough, fever, chills or pleurisy. I should also note she denies any dysphagia. PmHx: Subglottic stenosis, Allergic rhinitis, paroxysmal atrial fibrillation/ long-term anticoagulation/warfarin, coronary artery disease, asthma, depression , hypertension, GERD without esophagitis, hoarseness, obstructive sleep apnea, stage 4 chronic kidney disease, type 2 diabetes, severe Rocephin esophagitis, medium-size hiatal hernia, gastritis PsHx: Rigid bronchoscopic dilation of subglottic stenosis, EGD, Adenoidectomy, hand surgery, hysterectomy, knee surgery, salpingo-oophorectomy bilaterally, tonsillectomy Review of Systems Constitutional: negative. Eyes: negative. ENT: negative. Cardiovascular: negative. Respiratory: negative. Gastrointestinal: negative. Genitourinary: negative. Musculoskeletal: negative. Integumentary: negative. Neurological: negative. Psychiatric: negative. Endocrine: negative. Hematologic/Lymphatic: negative. Active Problems . Abnormal findings on diagnostic imaging of breast (R92.8) . Allergic rhinitis (J30.9) . Anticoagulant long-term use (Z79.01) . Arteriosclerosis of coronary artery (I25.10) . Asthma (J45.909) . Depression (F32.9) . Dyslipidemia (E78.5) . Essential hypertension (I10) . GERD without esophagitis (K21.9) . High risk medication use (Z79.899) . Insomnia (G47.00) . Lichen sclerosus (L90.0) . 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 Obesity (E66.9) . Obstructive sleep apnea of adult (G47.33) . Osteopenia (M85.80) . Paroxysmal atrial fibrillation (I48.0) . Stage 4 chronic kidney disease (N18.4) . Tracheal stenosis (J39.8) . Type 2 diabetes mellitus, uncontrolled (E11.65) . Urinary symptom or sign (R39.9) . Venous insufficiency (chronic) (peripheral) (I87.2) . History of Congestive heart failure (CHF) (I50.9) . History of Gastroparesis (K31.84) . History of Gout, joint (M10.9) . History of cataract (Z86.69) . History of cataract (Z86.69) . History of cellulitis (Z87.2) . History of decubitus ulcer (Z87.2) . History of diabetic ulcer of foot (Z86.31) . History of herpes zoster (Z86.19) Surgical History 1. History of adenoidectomy 2. History of Hand Surgery 3. History of Hysterectomy 4. History of Knee Surgery 5. History of Salpingo-oophorectomy Bilateral 6. History of Tonsillectomy Family History 1. Denied: Family history of myocardial infarction 2. Family history of malignant neoplasm of uterus (Z80.49) 3. Family history of ovarian cancer (Z80.41) 4. FHx: allergies (Z84.89) 5. Family history of liver cancer (Z80.0) Social History Always uses seat belt Dental care, regularly Living situation Never a smoker Never exercises (Z78.9) Never used moist powdered tobacco (Z78.9) No alcohol use No drug use Not currently sexually active Retired Secondhand smoke exposure (Z77.22) Single Denied: History of Special needs due to hearing impairment Denied: History of Special needs due to visual impairment Current Meds 1. Azelastine HCl - 0.1 % Nasal Solution; INSERT 2 SQUIRTS IN EACH NOSTRIL TWICE 2. Montelukast Sodium 10 MG Oral Tablet; TAKE 1 TABLET AT BEDTIME; 3. Isosorbide Mononitrate ER 30 MG Oral Tablet Extended Release 24 Hour; TAKE 3 4. Nitrostat 0.4 MG Sublingual Tablet Sublingual; PLACE 1 TABLET UNDER THE TONGUE 5. Ipratropium-Albuterol 0.5-2.5 (3) MG/3ML Inhalation Solution; ADMINISTER ONE 3 ML 6. ProAir HFA 108 (90 Base) MCG/ACT Inhalation Aerosol Solution; INHALE 1 TO 2 PUFFS 7. Pulmicort Flexhaler 180 MCG/ACT Inhalation Aerosol Powder Breath Activated; INHALE 2 8. Spiriva HandiHaler 18 MCG Inhalation Capsule; INHALE CONTENTS OF 1 CAPSULE 9. DULoxetine HCl - 30 MG Oral Capsule Delayed Release Particles; TAKE 1 CAPSULE 10. Fenofibric Acid 135 MG Oral Capsule Delayed Release; TAKE 1 CAPSULE DAILY; 11. Ezetimibe-Simvastatin 10-40 MG Oral Tablet; TAKE 1 TABLET AT BEDTIME; 12. Metoprolol Tartrate 25 MG Oral Tablet; TAKE 1 TABLET DAILY 13. Pantoprazole Sodium 40 MG Oral Tablet Delayed Release; TAKE 1 TABLET TWICE DAILY 14. Levothyroxine Sodium 50 MCG Oral Tablet; TAKE 1 TABLET DAILY 15. ClonazePAM 0.5 MG Oral Tablet; TAKE 1 TABLET AT BEDTIME 16. Vitamin D (Ergocalciferol) 36084 UNIT Oral Capsule; TAKE 1 CAPSULE EVERY 4 17. Warfarin Sodium 1 MG Oral Tablet; TAKE DIRECTED; 18. Warfarin Sodium 5 MG Oral Tablet; TAKE 1 TABLET DAILY DIRECTED 19. Metoclopramide HCl - 10 MG Oral Tablet; Take one tablet with dinner; 20. Allopurinol 100 MG Oral Tablet; TAKE 1 TABLET EVERY DAY; 21. Colace 100 MG Oral Capsule; TAKE 1 CAPSULE 4 TIMES DAILY; 22. Calcitriol 0.25 MCG Oral Capsule; take 1 by mouth daily; 23. Basaglar KwikPen 100 UNIT/ML Subcutaneous Solution Pen-injector; INJECT 50 UNITS 24. BD Pen Needle Mini U/F 31G X 5 MM; USE DIRECTED; 25. Januvia 100 MG Oral Tablet; TAKE 1 TABLET EVERY DAY; 26. NovoLOG FlexPen 100 UNIT/ML Subcutaneous Solution Pen-injector; INJECT 10 TO 20 27. OneTouch Delica Lancets 33G; test 4 times a day; 28. OneTouch Ultra Blue In Vitro Strip; Test 4 times daily; 29. Ultra-Thin II Mini Pen Needle 31G X 5 MM; USE DIRECTED; 30. Bumetanide 2 MG Oral Tablet; TAKE 1 TABLET TWICE DAILY 31. Spironolactone 50 MG Oral Tablet; TAKE 1 TABLET TWICE DAILY Allergies 1. Biaxin TABS Immunizations DTP/DTaP --- Series1: 14-Aug-2012 Influenza --- Series1: 05-Aug-2011; Series2: 14-Aug-2012; Series3: 15-Jul-2013; Series4: 20-Jul-2014; Series5: 13-Jul-2015; Series6: 19-Jun-2016; Series7: 21-Jul-2017 PCV --- Series1: 18-Sep-2016 Vital Signs Weight: 218 lb 9 oz BMI Calculated: 40.63 BSA Calculated: 1.97 Blood Pressure: 128 / 64, LUE, Sitting Heart Rate: 65 O2 Saturation: 98 Respiration: 18 Physical Exam Constitutional General appearance: No acute distress, well appearing and well nourished. Eyes Conjunctiva and lids: No swelling, erythema or discharge. Pupils and irises: Equal, round and reactive to light. Ears, Nose, Mouth, and Throat External inspection of ears and nose: Normal. Otoscopic examination: Tympanic membranes translucent with normal light reflex. Canals patent without erythema. Oropharynx: Normal with no erythema, edema, exudate or lesions. Pulmonary Respiratory effort: No increased work of breathing or signs of respiratory distress. Auscultation of lungs: Clear to auscultation. Cardiovascular Palpation of heart: Normal PMI, no thrills. Auscultation of heart: Normal rate and rhythm, normal S1 and S2, without murmurs. Examination of extremities for edema and/or varicosities: Abnormal. Bilateral 2 + lower extremity edema. Abdomen Abdomen: Non-tender, no masses. Liver and spleen: No hepatomegaly or splenomegaly. Lymphatic Palpation of lymph nodes in neck: No lymphadenopathy. Musculoskeletal Gait and station: Normal. Digits and nails: Normal without clubbing or cyanosis. Inspection/palpation of joints, bones, and muscles: Normal. Skin Skin and subcutaneous tissue: Normal without rashes or lesions. Neurologic Cranial nerves: Cranial nerves 2-12 intact. Reflexes: 2+ and symmetric. Sensation: No sensory loss. Psychiatric Orientation to person, place, and time: Normal. Mood and affect: Normal.
[2018-05-12 08:14] VITALS: BP 140/69; PULSE 69; TEMP 37.1; O2SAT 97; Ht 153 cm; Wt 98.0 kg
--- NOTE | 2018-05-12 08:22 | Pre Sedation Assessment ---
Pre Sedation Assessment General Date of Sedation: May 12, 2018. Review Cardiovascular: regular rate, rhythm, no edema, no gallop, no JVD, no murmur, normal peripheral pulses Lungs: chest non-tender, lungs clear, normal breath sounds, no respiratory distress, no accessory muscle use Pre-Sedation Airway Assessment Smoking Status: Never Smoker Hx of Sleep Apnea: No Hx of difficult intubation: No Short Thick Neck: Yes Thyro-mental Distance: > 3 Finger Breadths Oral Cavity: Dentures Mallampati Classification: Class II ASA Classification: Class II NPO Status Date of Last Intake of Fluids: May 11, 2018 Time of Last Intake of Fluids: 2129 Date of Last Intake of Solids: May 11, 2018 Time of Last Intake of Solids: 2129 Procedure Planning Contraindications for Sedation: None Current Medications Reviewed: Yes Notes The planned sedation has been discussed with the patient. Informed Consent was obtained. I have identified the patient, determined the appropriateness of sedation and have assessed the patient immediately prior to the procedure. All medicine(s) and interventions are by my order.
[2018-05-12 08:28] LABS: INR 1.1 (0.9-1.1); PTT PATIENT 26.6 SECONDS (21.0-31.0)
--- NOTE | 2018-05-12 09:26 | Bronchoscopy Procedure Note ---
Bronchoscopy Procedure Note Procedure: Bronchoscopy, conscious sedation Consent: Obtained through the patient placed into the chart Pre-procedural diagnosis: Tracheal stenosis Post-procedural diagnosis: Tracheal stenosis Start time: 907 End time: 919 Total time: 12 minutes Analgesia: 2% liquid lidocaine: Via nebulizer 4% gel lidocaine: Via right naris 2% liquid lidocaine: Via bronchoscopy Sedation: Versed IV: 2 mg Fentanyl IV: 580 g Procedure: The Olympus video bronchoscope was used for this procedure and passed down through the right naris Right naris/posterior naris/posterior oropharynx: Anatomically within normal limits Glottis: Anatomically within normal limits Vocal cords: Proper abduction and abduction, anatomically within normal limits Subglottis: Within normal Trachea: 2.5 cm from the vocal cords there is an area of stenosis narrowed down to approximately 10 mm Fidelia: Anatomically within normal limits Right bronchial tree: Right mainstem bronchus: Anatomically within normal limits Right upper lobe: Anatomically within normal limits Bronchus intermedius: Anatomically within normal limits Right middle lobe: Anatomically within normal limits Right lower lobe: Anatomically within normal limits Findings: No significant findings noted Left bronchial tree: Left mainstem bronchus: Anatomically within normal limits Left upper lobe: Anatomically within normal limits Lingula: Anatomically within normal limits Left lower lobe: Anatomically within normal limits Findings: No significant findings noted Bronchial alveolar lavage: Not performed EBL: None Complications: None Follow-up: ASU
--- NOTE | 2018-05-12 09:27 | Post Sedation Assessment ---
Post Sedation Assessment General Date of Sedation May 12, 2018. Vital Signs: Vital Signs Past 12 Hours Date Time Temp Pulse Resp B/P (MAP) Pulse Ox O2 Delivery O2 Flow Rate FiO2 05/12/18 09:20 55 12 136/57 98 Mask 8 05/12/18 09:15 56 16 128/54 100 Mask 8 05/12/18 09:10 57 14 136/49 100 Mask 8 05/12/18 08:55 63 14 147/61 100 Mask 8 05/12/18 08:14 37.1 69 20 140/69 (92) 97 Room Air Post Procedure Recovery Score Activity: (2) Moves 4 extremities * Respiration: (2) Deep breath/cough Circulation: (2) +/-20% PreAnes Value Consciousness: (1) Arouseable (by name) Oxygen Saturation: (1) O2 needed for >90% Post Anesthesia Score: 8 Discharge Sedation Level of Care: Phase I Post Sedation Plan On clinical assessment, the patient appears to have tolerated the sedation without complications. Patient is recovering as anticipated. Patient will continue to be monitored by nursing and may be discharged when sedation discharge criteria are met per below protocol. Upon Completions of procedure and additional 15 minutes continue every 5 minute vital signs and the P.A.R. score; then discharge to a Phase I or Fast Track to Phase II per the following guidelines: * Discharge Patient to appropriate Phase II area if PAR is 8 or greater or return to pre- procedure baseline. The post - procedure orders will be as directed. * If PAR score is less than 8 or not return to pre-procedure baseline then patient will follow Phase I monitoring till PAR is reached for Phase II. The Phase I may be done in procedure room or may call to secure a Phase I area. * If naloxone or flumazenil are used for reversal, hold in Phase I for an additional 60 -120 minutes before discharge to Phase II. Please call the Sedation Physician to re-evaluate and complete post-note for discharge to Phase II area. Do NOT discharge from procedure sedation or Phase 1 until post- sedation evaluation note is complete by procedure /sedation MD Sedation Discharge Instructions to be given to the patient at discharge to home.
--- NOTE | 2018-05-12 09:29 | Discharge Instructions ---
Discharge Instructions Date of Service May 12, 2018. Admission Reason for Admission: Tracheal Stenosis Discharge Discharge Diagnosis / Problem: Tracheal stenosis Discharge Goals Goal(s): Diagnostic testing Activity Recommendations Activity Limitations: resume your previous activity Shower/Bathe: tomorrow . Instructions / Follow-Up Instructions / Follow-Up Follow-up with the [facility] pulmonary clinic Current Hospital Diet Patient's current hospital diet: Discharge Diet Recommended Diet: Regular Diet Procedures Procedures Performed: Bronchoscopy, conscious sedation Pending Studies Studies pending at discharge: no Medical Emergencies . Who to Call and When: Medical Emergencies: If at any time you feel your situation is an emergency, please call 911 immediately. . Non-Emergent Contact Non-Emergency issues call your: Telemarketer Call Non-Emergent contact if: you have a fever, temperature is above 101 . . "Provider Documentation" section prepared by Gregory Flores. .
[2018-05-12 09:40] VITALS: BP 137/55; PULSE 56; TEMP 37.2; O2SAT 99
[2018-05-12 09:57] VITALS: BP 141/49; PULSE 55; O2SAT 100
[2018-05-12 10:23] VITALS: BP 134/46; PULSE 56; O2SAT 95
[2018-05-12 10:48] VITALS: BP 146/53; PULSE 58; TEMP 36.7; O2SAT 100
[2018-05-12 11:24] VITALS: BP 142/52; PULSE 58; O2SAT 99
== END | disposition home or self-care (01) ==
LOC: C.ACU 07:27
PROVIDERS: ATTEND Internal Medicine Critical Care Medicine
DX: J39.8 Other specified diseases of upper respiratory tract (principal); J38.6 Stenosis of larynx; K21.9 Gastro-esophageal reflux disease without esophagitis; J30.9 Allergic rhinitis, unspecified; Z99.89 Dependence on other enabling machines and devices; I48.0 Paroxysmal atrial fibrillation; I25.10 Atherosclerotic heart disease of native coronary artery without angina pectoris; J45.909 Unspecified asthma, uncomplicated; E78.5 Hyperlipidemia, unspecified; E66.9 Obesity, unspecified; G47.33 Obstructive sleep apnea (adult) (pediatric); N18.4 Chronic kidney disease, stage 4 (severe); Z90.710 Acquired absence of both cervix and uterus; Z79.01 Long term (current) use of anticoagulants

== ENCOUNTER 2019-11-19 15:56 | Observation (INO) ==
[2019-11-19] MEDS ORDERED: ONDANSETRON INJ 2 MG/ML 2 ML VIAL IV STA (16:11)
[2019-11-19] MEDS ORDERED: ACETAMINOPHEN 500 MG TAB PO STA (16:13)
[2019-11-19] MEDS ORDERED: SODIUM CHLORIDE 0.9% 1000ML 1,000 ML IV SCH (16:15)
--- NOTE | 2019-11-19 16:55 | Electrocardiogram Report ---
Test Reason : Blood Pressure : / mmHG Vent. Rate : 107 BPM Atrial Rate : 107 BPM P-R Int : 206 ms QRS Dur : 118 ms QT Int : 358 ms P-R-T Axes : 031 -58 105 degrees QTc Int : 477 ms Sinus tachycardia Left anterior fascicular block Left ventricular hypertrophy with QRS widening and repolarization abnormality Cannot rule out Septal infarct , age undetermined Abnormal ECG When compared with ECG of 20-MAR-2018 14:14, Significant changes have occurred Confirmed by Franco Ballard ([id number]) on 11/19/2019 4:55:37 PM Referred By: Confirmed By:Franco Ballard
[2019-11-19 17:08] LABS: Basophils # (auto) 0.02 K/uL (0-0.2); Basophils % (auto) 0.1 %; Eosinophils % (auto) 0.5 %; Hematocrit (blood only) 43.5 % (37-47); Hemoglobin 14.8 g/dL (12.0-16.0); Immature Granulocytes # (auto) 0.08 K/uL (0.00-0.02); Immature Granulocytes % (auto) 0.4 %; Lymphocytes # (auto) 0.79 K/uL (1.2-3.4); Lymphocytes % (auto) 4.1 %; Mean Corpuscular Volume 88.2 fL (80-100); Monocytes # (auto) 0.32 K/uL (0.11-0.59); Monocytes % (auto) 1.6 %; Neutrophils % (auto) 93.3 %; Platelet Count 222 K/uL (130-400); RDW Coefficient of Variation 14.6 % (11.5-14.5); RDW Standard Deviation 46.7 fL (36.4-46.3); Red Blood Count 4.93 M/uL (4.2-5.4); White Blood Count 19.41 K/uL (4.8-10.8)
--- NOTE | 2019-11-19 17:43 | XRay Report ---
SINGLE VIEW CHEST CLINICAL HISTORY: Generalized weakness. FINDINGS: An AP, portable, upright chest radiograph is compared to study dated 03/17/2019. Correlation is made with chest CT dated 02/07/2018. The heart is enlarged noting atherosclerotic calcification of the thoracic aorta. There is mild pulmonary vascular congestion. Chronic interstitial thickening kelvin lar to previous. No airspace consolidation or large pleural effusion is identified. No pneumothorax i s seen. The skeletal structures are osteopenic. The bony thorax is grossly intact. Degenerative kiser e is noted in the thoracic spine. Calcific tendinopathy is noted in the left shoulder. IMPRESSION: Cardiomegaly with mild pulmonary vascular congestion. ACT 112: Negative or not required by law. Electronically signed by: Иван Jackson M.D. 11/19/2019 5:42 PM
[2019-11-19 17:47] LABS: Alanine Aminotransferase 22 U/L (12-78); Aspartate Aminotransferase 21 U/L (15-37); BUN Creatinine Ratio 28.7 (10-20); Blood Urea Nitrogen 66 mg/dl (7-18); Calcium 9.6 mg/dl (8.5-10.1); Carbon Dioxide 25 mmol/L (21-32); Chloride 104 mmol/L (98-107); Creatinine Clr Calc Pharmacy 22.8 ml/min; Est GFR (African American) 23.3; Est GFR (Non-African American) 20.1; Glucose 152 mg/dl (70-99); Magnesium 2.4 mg/dl (1.8-2.4); Sodium 138 mmol/L (136-145)
[2019-11-19 17:52] LABS: Albumin Globulin Ratio 0.9 (0.9-2); Alkaline Phosphatase 46 U/L (45-117); Bilirubin,Total 0.3 mg/dl (0.2-1); Globulin 4.5 gm/dl (2.5-4.0); Total Protein 8.5 gm/dl (6.4-8.2); Troponin I < 0.015 ng/ml (0-0.045)
--- NOTE | 2019-11-19 17:58 | CT Scan Report ---
CT SCAN OF THE ABDOMEN AND PELVIS WITHOUT IV CONTRAST CLINICAL HISTORY: Lower abdominal pain. Vomiting. COMPARISON STUDY: Abdominal CT dated 02/25/2018. TECHNIQUE: CT scan of the abdomen and pelvis is performed from the lung bases to the proximal femora. Images are reviewed in the axial, sagittal, and coronal planes. IV contrast was not administered for this examination as per the referring clinician. Note that the examination was performed in suboptim al fashion without oral and IV contrast. A dose lowering technique was utilized adhering to the [facility] [place]. CT DOSE: 1218.77 mGy.cm FINDINGS: Lung bases: The heart is mildly enlarged and without pericardial effusion. The coronary arteries are calcified. The lung bases are clear. There is a moderate hiatal hernia. Question mild wall thickening of the distal esophagus. Liver: The unenhanced liver is enlarged, measuring 19.3 cm in length. The liver demonstrates diffusel y diminished attenuation consistent with hepatic steatosis. Mild fatty sparing is seen adjacent to th e gallbladder fossa. There is no intrahepatic biliary ductal dilatation. Gallbladder: Mildly distended but otherwise normal in appearance. Spleen: Normal in size and attenuation. Pancreas: The unenhanced pancreas is atrophic and grossly unremarkable. Adrenal glands: Unremarkable. Kidneys: The unenhanced kidneys are atrophic and without hydronephrosis. There are no renal calculi i dentified. There is no evidence of contour deforming renal mass lesion. Abdominal vasculature: The abdominal aorta is normal in course and caliber noting advanced atheroscle rotic calcification. Bowel: There is no bowel obstruction. Liquid stool is noted in the colon. There is no colonic wall th ickening or pericolonic inflammation. There are scattered colonic diverticula without CT evidence of acute diverticulitis. The appendix is well-visualized and normal. Peritoneum: There is no intraperitoneal free air or abdominal ascites. There is a small fat-containin g umbilical hernia. Foci of induration within the ventral abdominal wall soft tissues are likely rela addison to subcutaneous injections. Lymphadenopathy: None. Pelvic viscera: The bladder is partially decompressed and grossly unremarkable. The uterus is surgica lly absent. No adnexal lesion is seen. Skeletal structures: The skeletal structures are osteopenic. There is moderate to advanced lumbosacra l spondylosis. There are bilateral pars defects at L5 with advanced disc space narrowing and 9 mm ant erolisthesis at L5-S1. There is a large hemangioma in the body of T12. No lytic or blastic lesions ar e seen. IMPRESSION: 1. Liquid stool is noted throughout the colon. Correlate clinically for evidence of a diarrheal illne ss. 2. Hepatomegaly and mild steatosis. 3. Moderate hiatal hernia. 4. Question circumferential wall thickening of the distal esophagus. Correlate clinically for evidenc e of esophagitis. 5. Mild cardiomegaly. 6. Additional findings as above. ACT 112: Negative or not required by law. Electronically signed by: Иван Jackson M.D. 11/19/2019 5:57 PM
[2019-11-19 18:42] LABS: INR 2.6 (0.9-1.1); Prothrombin Time 25.1 Seconds (9.0-12.0)
[2019-11-19] MEDS ORDERED: MoRPHine SULFATE 4 MG/ML 1 ML CARP\\VIAL IV STA (19:51)
--- NOTE | 2019-11-19 21:00 | History & Physical Report ---
Date of Service November 19, 2019 Assessment & Plan (1) Nausea vomiting and diarrhea: Beverley Baer is a 74 year old woman with pmh of CAD, HLD, DMII, A Fib, GERD, gastroparesis here for vomiting and diarrheal illness Vomiting and diarrhea Likely secondary to GI virus that is going around her family currently vs Clostridium difficile as patient recently finished course of antibiotics. Will treat supportively for now and collect stool for culture and C. Diff testing Rehydrating with NaCl 125 mls/hour K currently WNL, will recheck electrolytes in am zofran for nausea Abnormal ECG Lateral T wave inversions and evidence of possible septal infarct since last ECG Evidence of LVH Initial troponin negative, will continue to trend x 3 Repeat ECG with any chest pain Will get echocardiogram in AM and consult cardiology Leukocytosis Likely secondary to demargination from frequent vomiting With elevated temperature will continue to monitor for signs of infectious diarrheal illness Stool cultures and C. Diff pending A fib Continuing with home warfarin regimen and metoprolol for rate control Gastroparesis Holding home metoclopramide in setting of diarrheal illness DMII Patient placed on subQ insulin regimen, with sliding scale will adjust as needed F/E/N: DMII diet when tolerating feeding for now IV NSS 125/hour DVT PPx: Warfarin Dispo: Admitted to tele for close monitoring with concerning cardiac history (2) Leukocytosis: (3) Substernal chest pain: (4) Abnormal ECG: (5) HTN (hypertension): (6) Diabetes type 2, uncontrolled: (7) halfway (current) use of anticoagulants: (8) Asthma: (9) Dyslipidemia: (10) Diabetic foot ulcer: (11) Essential hypertension: (12) GERD without esophagitis: (13) Obstructive sleep apnea of adult: (14) Paroxysmal atrial fibrillation: History of Present Illness Chief Complaint: Nausea and Vomiting Primary Care Provider: Alfred Mckeon, III, EMPLOYEE WELLNESS/FITNESS COORDINATOR Beverley Baer is a 74 year old woman with a past medical history significant for COPD, CKD IV, HTN, Hypothyroidism, DMII, HLD, Atrial Fibrillation on warfarin and CA in 2018. She is here today for about 12 hours of GI illness. She tells me around 11 am she had an episode of vomiting and then had several episodes of vomiting. She was not able to quantify how many episodes of vomiting she had despite my frequent efforts to ask her to quantify but she says many. She describes the vomit as liquid and greenish, no blood. She has been around her sister and her frequently and both have them were sick with a very similar illness that required them both to be hospitalized with frequent vomiting. Sister is present at bedside with her now. She had one episode of chest pain on ambulance on way to emergency department but that quickly resolved. In emergency department she remained afebrile though with a temperature just under 38 degrees. She was otherwise hemodynamically stable throughout. Her labwork was significant for an elevated white count of 19.41 and an elevated BUN of 66 with a creatinine of 2.29 which appears to be very near her baseline. Her troponin and LFT's were normal her INR was therapeutic. She also received a CT of her abdomen and pelvis which revealed liquid stool throughout colon, hepatomegaly and steatosis and mild cardiomegaly. She received zofran, some morphine for her abdominal pain, and was started on IV NSS at 125 an hour in ED. Allergies Allergy/AdvReac Type Severity Reaction Status Date / Time clarithromycin Allergy Intermediate RASH AND Verified 11/19/19 16:46 ITCHING Home Medications Home Medications Medication Instructions Recorded Confirmed Type nitroglycerin [Nitrostat] 0.4 mg UT UD PRN #0 09/28/09 11/19/19 History spironolactone 50 mg PO BID #0 09/28/09 11/19/19 History ezetimibe-simvastatin [Vytorin 1 tab PO HS #0 12/08/15 11/19/19 History 10-40] cranberry fruit concentrate 250 mg 500 mg PO DAILY@12 tab 08/20/18 11/19/19 History chewable tablet betamethasone dipropionate 0.05 % 1 appln TOPICAL UD PRN gm 05/10/19 11/19/19 History topical cream docusate sodium 100 mg capsule 100 mg PO QID cap 05/10/19 11/19/19 History fexofenadine 180 mg tablet 180 mg PO DAILY tab 05/10/19 11/19/19 History lancets 33 gauge #100 ea 05/10/19 11/15/19 History duloxetine 30 mg capsule,delayed 30 mg PO QAM #90 cap 06/18/19 11/19/19 Rx release metoclopramide HCl 10 mg tablet 10 mg PO QPM #90 tab 06/29/19 11/19/19 Rx allopurinol 100 mg tablet 100 mg PO QAM #90 tab 07/14/19 11/19/19 Rx terconazole 0.4 % vaginal cream 1 appl PV Q2D PRN gm 08/16/19 11/19/19 History blood sugar diagnostic #400 ea 09/07/19 11/15/19 Rx potassium chloride 20 mEq 20 meq PO DAILY #90 tab 09/14/19 11/19/19 Rx tablet,extended release(part/cryst) insulin aspart U-100 100 unit/mL 0 unit SUBCUT UD syr 09/21/19 11/19/19 History (3 mL) subcutaneous pen levothyroxine 75 mcg tablet 75 mcg PO DAILY #30 tab 09/22/19 11/19/19 Rx calcitriol 0.25 mcg capsule 0.25 mcg PO DAILY #90 cap 09/24/19 11/19/19 Rx fenofibric acid (choline) 135 mg 135 mg PO QAM 90 Days #90 cap 09/24/19 11/19/19 Rx capsule,delayed release metoprolol tartrate 25 mg tablet 25 mg PO DAILY #90 tab 09/24/19 11/19/19 Rx bumetanide 2 mg tablet 2 mg PO BID 90 Days #180 tab 10/07/19 11/19/19 Rx azelastine 137 mcg (0.1 %) nasal 2 sprays INTNAS BID #90 ml 10/28/19 11/19/19 Rx spray aerosol clonazepam 0.5 mg tablet 0.5 mg PO HS #90 tab 10/28/19 11/19/19 Rx pantoprazole 40 mg tablet,delayed 40 mg PO DAILY #90 tab 11/16/19 11/19/19 Rx release pen needle, diabetic 31 gauge x ea 11/16/19 History 12/26" ergocalciferol (vitamin D2) 50,000 unit PO UD 11/19/19 11/19/19 History insulin glargine [Basaglar KwikPen 64 unit SC BID 11/19/19 11/19/19 History U-100 Insulin] isosorbide mononitrate 90 mg PO DAILY 11/19/19 11/19/19 History warfarin 0 mg PO UD 11/19/19 11/19/19 History Past Med/Surg History Medical History Acute osteomyelitis Cataract Cellulitis CHF (congestive heart failure) Constipation Decubitus ulcer Gastric ulcer Gastroparesis Herpes zoster Pneumonia Vaginitis Surgical History H/O adenoidectomy H/O hand surgery H/O knee surgery H/O: hysterectomy Hx of salpingo-oophorectomy, bilateral S/P tonsillectomy Family History Liver cancer Ovarian cancer Sister Emphysema, unspecified Father Uterine cancer Sister Social History Preferred Language: Setswana Communication Ability: Effective Visual Impairment: Limited Hearing Ability: Normal 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 Beliefs That Will Affect Care: None marital status: Single Current Living Situation: Alone current occupational status: retired Other Information That Helps Us Care for You: No Feels Safe at Home: Yes Safety Concerns: Feels Safe At This Time Smoking Status: Never smoker Hx Alcohol Use: No Hx Substance Use: No Dental Care, Regularly: Yes Physical Activity Frequency: Does not Exercise Seatbelt Use: always Do you think of yourself as: straight/heterosexual Review of Systems Constitutional: no fever, no chills, no body aches and no fatigue Eyes: no problem reported Respiratory: + cough (URI prior to symptoms); no dyspnea and no wheezing Cardiovascular: + chest pain (Briefly during ambulance ride over has since resolved) and + edema (Chronic); no palpitations and no lightheadedness Gastrointestinal: + abdominal pain, + nausea, + vomiting and + diarrhea/loose stools; no hematemesis, no pain with swallowing, no blood in stools and no melena Genitourinary: no dysuria and no urinary frequency Integumentary: no rash and no lesions Physical Exam Physical Exam: Constitutional: Mildly distressed 74 year old woman appearing older than stated age. Able to converse easily Eyes: Anicteric sclerae EOMMI bilaterally ENMT: NAD Neck: Soft supple, full range of motion, no lymphadenopathy detected Respiratory: Equal air entry globally, coarse breath sounds throughout oxygenating well, no accessory muscle use GI: Abdomen soft, very mildly tender over hypogastric, and right iliac regions, bowel sounds present MSK: NAD Neuro: No focal deficits appreciated, patient moving all four limbs against gravity Results & Data Vital Signs (Past 12 Hours) Vital Signs Temp Pulse Resp BP Pulse Ox 11/19/19 19:52 141/69 H 94 11/19/19 16:59 112 H 18 181/74 H 94 11/19/19 16:04 104 H 20 173/91 H 96 11/19/19 16:00 37.9 C H 109 H 22 173/91 H 96 Supervising Physician Co-Signing Physician Notes Attending addendum: I have physically seen this patient, have supervised the medical residents activities, and agree with the H&P unless as otherwise noted. Assessment and Plan: Nausea, vomiting and diarrhea- CT suggestive of liquid stool throughout colon. Other family members with similar illnesses were noted last week and actually admitted into the hospital. NPO Follow stool studies. NSS 125 mils per hour. Follow serial laboratories. Abnormal EKG/hypertension/paroxysmal atrial fibrillation/CAD- The patient will be admitted to telemetry for serial cardiac enzymes, serial EKG's, cardiac rhythm monitoring and a 2-D echocardiogram with Dopplers. EKG with lateral changes. Initial troponin normal. Patient without symptoms. Continue isosorbide mononitrate 90 mg p.o. daily, metoprolol tartrate 25 mg p.o. twice daily, warfarin and nitroglycerin sublingual as needed Hold bumetanide and spironolactone for now. Cardiology consulted. Remainder of orders and notations as noted. Resident Activity Tracking Resident Involvement: Resident Care Provided Care Provided: Adult Hospital Medicine (1) Leukocytosis Leukocytosis type: unspecified Qualified Code(s): D72.829 - Elevated white blood cell count, unspecified
--- NOTE | 2019-11-19 22:14 | Emergency Department Note ---
Entered by Miguelangel Santana acting as a scribe for ED Provider Note CHIEF COMPLAINT: Abdominal pain HISTORY OF PRESENT ILLNESS: The patient is a 74 year old female who presents to the Emergency Room with complaints of constant abdominal pain starting this morning. The patient states her symptoms started when she vomited and then she started to get abdominal pain. She states she has had diarrhea and a fever. She states she started get ting chest pain right before coming to the ED. She notes she vomited on the way to the ED. She states she has been coughing. She states her sister and [id number] were in the ED for a stomach virus last week. She states she has diabetes. Nursing states the patient's blood sugar was in the 170s around noon. The patient states she takes Coumadin. The patient states she has not been eating a lot. Pt denies LOC, headache, chills, diaphoresis, visual changes, neck pain, breathing difficulties, back pain, melena, hematochezia, urinary symptoms, numbness, weakness, lymphadenopathy, rash, or other complaints. REVIEW OF SYSTEMS: See HPI for pertinent positives and negatives. A total of ten systems were reviewed and were otherwise negative. PMHx/PSHx: Pressure ulcer, HTN, Diabetes, retirement use of anticoagulants, arteriosclerosis of coronary artery, asthma, depression, diabetic foot ulcer, dyslipidemia, GERD, lichen sclerosus, osteopenia, paroxysmal atrial fibrillation, SGS, chronic diastolic heart failure, CKD, hypothyroidism SOCIAL HISTORY: Patient lives at home. PHYSICAL EXAM: GENERAL: Awake, alert, Mildly ill-appearing, in no distress HENT: Normocephalic, atraumatic. Oropharynx unremarkable. EYES: PERRL. Normal conjunctiva. Sclera non-icteric. NECK: Inspection normal. Non-tender. Supple. No nuchal rigidity. FROM. No masses. RESPIRATORY: Clear to auscultation. No wheezes. No rales. Normal respiratory ef fort. CARDIAC: Tachycardic rate. Normal rhythm. No murmurs. No rubs. Extremities warm and well perfused. Pulses equal. No JVD. GI: Soft, non-distended. No rebound or guarding. No masses. Left lower and right lower abdominal tenderness. RECTAL: Deferred. MUSCULOSKELETAL: Atraumatic. Chest examination reveals no tenderness. The back is symmetrical on inspection without obvious abnormality. There is no CVA tenderness to palpation. No joint edema. LOWER EXTREMITIES: Calves are equal size bilaterally and non-tender. No edema. No discoloration. NEURO: Normal sensorium. No sensory or motor deficits noted. SKIN: No rash or jaundice noted. EMERGENCY DEPARTMENT COURSE: 1609: The patient was evaluated in room C10, and a complete history and physical examination were performed. 1940: I reevaluated the patient. I updated her on her labs and imaging. She sti ll has some mild abdominal pain. 1957: I discussed the patient's case with Dr. Thompson - [facility] Hospitalist. He will evaluate the patient for further management MEDICAL DECISION MAKING: C10 Triage Nursing notes reviewed and agree them. Additional history obtained from the family. The patient's history was concerning for nausea, vomiting, diarrhea, and abdominal pain. Patient also noted chest pain. She did note taking amoxicillin 2 weeks ago as well. Differential diagnosis: Etiologies such as gastroenteritis, food borne illness, infections, appendicitis, diverticulitis, inflammatory bowel disease, GI bleed, biliary pathology, cardiac sources, infectious diarrhea, as well as others were entertained. Physical examination findings: Lower abdominal discomfort on examination. ER treatment provided: IV hydration with normal saline IV Zofran Oral Tylenol On reassessment the patient felt better. She was till having some abdominal discomfort. IV morphine 4 mg Diagnostics interpretation by me: ECG: Lateral T wave inversions noted. Mild tachycardia. The labs revealed a moderate leukocytosis of 19,000. Mild dehydration on chemistry panel. Renal insufficiency noted. Stool testing ordered. Troponin negative. Imaging studies: Chest x-ray negative for acute process. CT scan of the abdomen pelvis revealed a diarrheal state. No obstruction or other acute pathology. Given the constellation of symptoms and laboratory findings I discussed further treatment in the hospital. The patient was in agreement. Her ECG changes are also concerning in light of the chest discomfort. Consultation: A consultation was placed with the hospitalist. The case was discussed and diagnostics were reviewed. The patient was evaluated in the ER for further treatment. IMPRESSION: Nausea, vomiting, diarrhea Leukocytosis Substernal chest pain Abnormal ECG PLAN: Admitted The scribe's documentation has been prepared under my direction and personally reviewed by me in its entirety. I confirm that the note above accurately reflect s all work, treatment, procedures, and medical decision making performed by me. Impression & Plan Nausea vomiting and diarrhea, Leukocytosis, Substernal chest pain, Abnormal ECG Past Med/Surg History Medical History Acute osteomyelitis Cataract Cellulitis CHF (congestive heart failure) Constipation Decubitus ulcer Gastric ulcer Gastroparesis Herpes zoster Pneumonia Vaginitis Surgical History H/O adenoidectomy H/O hand surgery H/O knee surgery H/O: hysterectomy Hx of salpingo-oophorectomy, bilateral S/P tonsillectomy Family History Father Emphysema, unspecified Sister Uterine cancer Ovarian cancer Other Liver cancer Social History Preferred Language: Gabonese Communication Ability: Effective Visual Impairment: Limited Hearing Ability: Normal Beliefs That Will Affect Care: None marital status: Single Current Living Situation: Alone current occupational status: retired Feels Safe at Home: Yes Smoking Status: Never smoker Hx Alcohol Use: No Hx Substance Use: No Dental Care, Regularly: Yes Physical Activity Frequency: Does not Exercise Seatbelt Use: always Do you think of yourself as: straight/heterosexual Results & Data Vital Signs Vital Signs - 24 hr 11/19/19 16:00 11/19/19 16:04 11/19/19 16:59 Temperature 37.9 C H Temperature Source Oral Pulse Rate 109 H 104 H 112 H Pulse Rate from SpO2 Sensor 105 H 112 H Respiratory Rate 22 20 18 Respiratory Effort / Characteristics Non-Labored Spontaneous Respiratory Depth Normal Respiratory Pattern Regular Blood Pressure 173/91 H 173/91 H 181/74 H Blood Pressure Mean 118 135 147 Blood Pressure Position Lying Pulse Oximetry 96 96 94 Oxygen Delivery Method Room Air Oxygen Flow Rate Sepsis Recent Fever Within 48 Hours Yes Sepsis New/Unexplained Change in Mental Status No Sepsis Action Taken by Nursing Physician Notified 11/19/19 19:52 11/19/19 20:00 11/19/19 20:30 Temperature Temperature Source Pulse Rate Pulse Rate from SpO2 Sensor 103 H 103 H 100 H Respiratory Rate Respiratory Effort / Characteristics Respiratory Depth Respiratory Pattern Blood Pressure 141/69 H 139/59 L 130/73 Blood Pressure Mean 91 90 107 Blood Pressure Position Pulse Oximetry 94 93 95 Oxygen Delivery Method Room Air Room Air Oxygen Flow Rate Sepsis Recent Fever Within 48 Hours Sepsis New/Unexplained Change in Mental Status Sepsis Action Taken by Nursing 11/19/19 21:00 Temperature Temperature Source Pulse Rate 95 H Pulse Rate from SpO2 Sensor 95 H Respiratory Rate 16 Respiratory Effort / Characteristics Respiratory Depth Respiratory Pattern Blood Pressure 145/64 H Blood Pressure Mean 74 Blood Pressure Position Pulse Oximetry 91 Oxygen Delivery Method Nasal Cannula Oxygen Flow Rate 2 Sepsis Recent Fever Within 48 Hours Sepsis New/Unexplained Change in Mental Status Sepsis Action Taken by [facility] Medications Current Medication List: was personally reviewed by me Laboratory Data Attestation: I reviewed the patient's lab results. Result diagrams: 11/19/19 16:51 11/19/19 16:51 Lab Results 11/19/19 11/19/19 11/19/19 Range/Units 16:40 16:51 16:51 WBC 19.41 H (4.8-10.8) K/uL RBC 4.93 (4.2-5.4) M/uL Hgb 14.8 (12.0-16.0) g/dL Hct 43.5 (37-47) % MCV 88.2 (80-100) fL MCH 30.0 (25-34) pg MCHC 34.0 (32-36) g/dL RDW Std Deviation 46.7 H (36.4-46.3) fL RDW Coeff of Melonie 14.6 H (11.5-14.5) % Plt Count 222 (130-400) K/uL MPV 10.0 (7.4-10.4) fL Immature Gran % (Auto) 0.4 % Neut % (Auto) 93.3 % Lymph % (Auto) 4.1 % [place] % (Auto) 1.6 % Eos % (Auto) 0.5 % Baso % (Auto) 0.1 % Immature Gran # (Auto) 0.08 H (0.00-0.02) K/uL Neut # (Auto) 18.10 H (1.4-6.5) K/uL Lymph # (Auto) 0.79 L (1.2-3.4) K/uL [place] # (Auto) 0.32 (0.11-0.59) K/uL Eos # (Auto) 0.10 (0-0.5) K/uL Baso # (Auto) 0.02 (0-0.2) K/uL PT INR Sodium 138 (136-145) mmol/L Potassium 4.0 (3.5-5.1) mmol/L Chloride 104 (98-107) mmol/L Carbon Dioxide 25 (21-32) mmol/L Anion Gap 9.0 (3-11) BUN 66 H (7-18) mg/dl Creatinine 2.29 H (0.6-1.2) mg/dl Est Cr Clr Drug Dosing 22.8 ml/min Est GFR ( Amer) 23.3 Est GFR (Non-Af Amer) 20.1 BUN/Creatinine Ratio 28.7 H (10-20) Glucose 152 H (70-99) mg/dl Calcium 9.6 (8.5-10.1) mg/dl Magnesium 2.4 (1.8-2.4) mg/dl Total Bilirubin 0.3 (0.2-1) mg/dl AST 21 (15-37) U/L ALT 22 (12-78) U/L Alkaline Phosphatase 46 (45-117) U/L Troponin I < 0.015 (0-0.045) ng/ml Total Protein 8.5 H (6.4-8.2) gm/dl Albumin 4.0 (3.4-5.0) gm/dl Globulin 4.5 H (2.5-4.0) gm/dl Albumin/Globulin Ratio 0.9 (0.9-2) TSH 3.200 (0.300-4.500) uIu/ml Specimen Hemolysis Influenza Type A Ag Neg for Influ A (Neg) Influenza Type B Ag Neg for Influ B (Neg) 11/19/19 11/19/19 Range/Units 16:51 17:45 WBC (4.8-10.8) K/uL RBC (4.2-5.4) M/uL Hgb (12.0-16.0) g/dL Hct (37-47) % MCV (80-100) fL MCH (25-34) pg MCHC (32-36) g/dL RDW Std Deviation (36.4-46.3) fL RDW Coeff of Melonie (11.5-14.5) % Plt Count (130-400) K/uL MPV (7.4-10.4) fL Immature Gran % (Auto) % Neut % (Auto) % Lymph % (Auto) % [place] % (Auto) % Eos % (Auto) % Baso % (Auto) % Immature Gran # (Auto) (0.00-0.02) K/uL Neut # (Auto) (1.4-6.5) K/uL Lymph # (Auto) (1.2-3.4) K/uL [place] # (Auto) (0.11-0.59) K/uL Eos # (Auto) (0-0.5) K/uL Baso # (Auto) (0-0.2) K/uL PT Cancelled 25.1 H INR Cancelled 2.6 H Sodium (136-145) mmol/L Potassium (3.5-5.1) mmol/L Chloride (98-107) mmol/L Carbon Dioxide (21-32) mmol/L Anion Gap (3-11) BUN (7-18) mg/dl Creatinine (0.6-1.2) mg/dl Est Cr Clr Drug Dosing ml/min Est GFR ( Amer) Est GFR (Non-Af Amer) BUN/Creatinine Ratio (10-20) Glucose (70-99) mg/dl Calcium (8.5-10.1) mg/dl Magnesium (1.8-2.4) mg/dl Total Bilirubin (0.2-1) mg/dl AST (15-37) U/L ALT (12-78) U/L Alkaline Phosphatase (45-117) U/L Troponin I (0-0.045) ng/ml Total Protein (6.4-8.2) gm/dl Albumin (3.4-5.0) gm/dl Globulin (2.5-4.0) gm/dl Albumin/Globulin Ratio (0.9-2) TSH (0.300-4.500) uIu/ml Specimen Hemolysis Influenza Type A Ag (Neg) Influenza Type B Ag (Neg) Administered Medications Sodium Chloride (Nss 1000ml) 1,000 mls @ 125 mls/hr IV .Q8H HAYDE Stop: 11/20/19 00:14 Last Infusion: 11/19/19 22:01 Dose: 0 mls/hr Documented by: [id number] Admin: 11/19/19 17:01 Dose: 125 mls/hr Documented by: [id number] Discontinued Medications Acetaminophen (Tylenol) 1,000 mg PO NOW STA Stop: 11/19/19 16:14 Last Admin: 11/19/19 17:55 Dose: 1,000 mg Documented by: [id number] Morphine Sulfate (Morphine Sulfate) 4 mg IV NOW STA Stop: 11/19/19 19:52 Last Admin: 11/19/19 20:49 Dose: 4 mg Documented by: [id number] Ondansetron HCl (Zofran) 4 mg IV NOW STA Stop: 11/19/19 16:12 Last Admin: 11/19/19 17:00 Dose: 4 mg Documented by: [id number] Imaging Data Radiologist's Impression: Radiology results as stated below per my review and the radiologist's interpretation: SINGLE VIEW CHEST CLINICAL HISTORY: Generalized weakness. FINDINGS: An AP, portable, upright chest radiograph is compared to study dated 03/17/2019. Correlation is made with chest CT dated 02/07/2018. The heart is enlarged noting atherosclerotic calcification of the thoracic aorta. There is mild pulmonary vascular congestion. Chronic interstitial thickening similar to previous. No airspace consolidation or large pleural effusion is identified. No pneumothorax is seen. The skeletal structures are osteopenic. The bony thorax is grossly intact. Degenerative change is noted in the thoracic spine. Calcific tendinopathy is noted in the left shoulder. IMPRESSION: Cardiomegaly with mild pulmonary vascular congestion. ACT 112: Negative or not required by law. Electronically signed by: Иван Jackson M.D. 11/19/2019 5:[address] SCAN OF THE ABDOMEN AND PELVIS WITHOUT IV CONTRAST CLINICAL HISTORY: Lower abdominal pain. Vomiting. COMPARISON STUDY: Abdominal CT dated 02/25/2018. TECHNIQUE: CT scan of the abdomen and pelvis is performed from the lung bases to the proximal femora. Images are reviewed in the axial, sagittal, and coronal planes. IV contrast was not administered for this examination as per the referring clinician. Note that the examination was performed in suboptimal fashion without oral and IV contrast. A dose lowering technique was utilized adhering to the principles of ALARA. CT DOSE: 1218.77 mGy.cm FINDINGS: Lung bases: The heart is mildly enlarged and without pericardial effusion. The coronary arteries are calcified. The lung bases are clear. There is a moderate hiatal hernia. Question mild wall thickening of the distal esophagus. Liver: The unenhanced liver is enlarged, measuring 19.3 cm in length. The liver demonstrates diffusely diminished attenuation consistent with hepatic steatosis. Mild fatty sparing is seen adjacent to the gallbladder fossa. There is no in trahepatic biliary ductal dilatation. Gallbladder: Mildly distended but otherwise normal in appearance. Spleen: Normal in size and attenuation. Pancreas: The unenhanced pancreas is atrophic and grossly unremarkable. Adrenal glands: Unremarkable. Kidneys: The unenhanced kidneys are atrophic and without hydronephrosis. There are no renal calculi identified. There is no evidence of contour deforming renal mass lesion. Abdominal vasculature: The abdominal aorta is normal in course and caliber noting advanced atherosclerotic calcification. Bowel: There is no bowel obstruction. Liquid stool is noted in the colon. There is no colonic wall thickening or pericolonic inflammation. There are scattered colonic diverticula without CT evidence of acute diverticulitis. The appendix is well-visualized and normal. Peritoneum: There is no intraperitoneal free air or abdominal ascites. There is a small fat-containing umbilical hernia. Foci of induration within the ventral abdominal wall soft tissues are likely related to subcutaneous injections. Lymphadenopathy: None. Pelvic viscera: The bladder is partially decompressed and grossly unremarkable. The uterus is surgically absent. No adnexal lesion is seen. Skeletal structures: The skeletal structures are osteopenic. There is moderate to advanced lumbosacral spondylosis. There are bilateral pars defects at L5 with advanced disc space narrowing and 9 mm anterolisthesis at L5-S1. There is a large hemangioma in the body of T12. No lytic or blastic lesions are seen. IMPRESSION: 1. Liquid stool is noted throughout the colon. Correlate clinically for evidence of a diarrheal illness. 2. Hepatomegaly and mild steatosis. 3. Moderate hiatal hernia. 4. Question circumferential wall thickening of the distal esophagus. Correlate clinically for evidence of esophagitis. 5. Mild cardiomegaly. 6. Additional findings as above. ACT 112: Negative or not required by law. Electronically signed by: Иван Jackson M.D. 11/19/2019 5:57 PM ECG Data Attestation: I personally reviewed and interpreted this ECG as follows: Indication: + weakness Rate (beats per minute): 107 Rhythm: sinus tachycardia ECG Intervals/blocks: + First degree AV block and + Left anterior fascicular block ECG Findings: + Q waves (septal), + LVH (with QRS widening) and + Other (Repolarization abnormality present) Comparison ECG Date: from (03/20/18) Change: the following changes noted (Lateral TWI is new) Blood Pressure Blood Pressure Findings: Elevated blood pressure Blood Pressure Disposition: further management by hospitalist Discharge Plan Visit Data Chief Complaint: Illness ED Provider: Oliver Gorman Discharge Problem: Nausea vomiting and diarrhea, Leukocytosis, Substernal chest pain, Abnormal ECG Patient Disposition: Being Evaluated by Hospitalist Discharge Instructions Interventions: ED Discharge Assessment Last Done: 11/19/19 21:30 Discharge Problem: Leukocytosis Qualifiers: Leukocytosis type: unspecified Qualified Code(s): D72.829 - Elevated white blood cell count, unspecified The scribe's documentation has been prepared under my direction and personally reviewed by me in its entirety. I confirm that the note above accurately reflects all work, treatment, procedures, and medical decision making performed by me.
[2019-11-19] MEDS ORDERED: DC ALL PREVIOUSLY ORDERED DIABETES MEDS ONE (22:31)
[2019-11-19] MEDS ORDERED: GLUCOSE 40% GEL 15 GM TUBE PO PRN (22:31)
[2019-11-19] MEDS ORDERED: TERCONAZOLE 0.4% CR 45 GM TUBE PV PRN (22:31)
[2019-11-19] MEDS ORDERED: CARBOHYDRATES FOR HYPOGLYCEMIA PO PRN (22:31)
[2019-11-19] MEDS ORDERED: DEXTROSE 50% 50 ML SYRINGE IV PRN (22:31)
[2019-11-19] MEDS ORDERED: GLUCAGON FOR INJ 1 MG VIAL SQ PRN (22:31)
[2019-11-19] MEDS ORDERED: NITROGLYCERIN SL 0.4 MG/TAB TAB SL PRN (22:31)
[2019-11-19] MEDS ORDERED: GLUCOSE 10 TABS/TUBE PO PRN (22:31)
[2019-11-19] MEDS: SPIRONOLACTONE 25 MG TAB PO SCH (23:31)
[2019-11-19] MEDS: BUMETANIDE 1 MG TAB PO SCH (23:32)
[2019-11-19] MEDS: clonazePAM 0.5 MG TAB PO SCH (23:37)
[2019-11-19] MEDS: INSULIN ASPART 100 UNITS/ML 3 ML PEN SC SCH (23:41)
[2019-11-19] MEDS: INSULIN GLARGINE SOLOSTAR 100 UNITS/ML 3 ML PEN SC SCH (23:42)
[2019-11-20] MEDS: LEVOTHYROXINE SODIUM 75 MCG TABLET PO SCH (06:26)
[2019-11-20] MEDS: BUMETANIDE 1 MG TAB PO SCH ×2 (08:04→16:45)
[2019-11-20] MEDS: CALCITRIOL 0.25 MCG CAPSULE PO SCH (08:04)
[2019-11-20] MEDS: METOPROLOL TARTRATE 25 MG TAB PO SCH (08:05)
[2019-11-20] MEDS: allopurinoL 100 MG TAB PO SCH (08:05)
[2019-11-20] MEDS: ISOSORBIDE MONO EXTENDED REL 30 MG TABCR PO SCH (08:05)
[2019-11-20] MEDS: DULOXETINE HCL 30 MG CAP PO SCH (08:05)
[2019-11-20] MEDS: SPIRONOLACTONE 25 MG TAB PO SCH ×2 (08:05→16:44)
[2019-11-20] MEDS: INSULIN GLARGINE SOLOSTAR 100 UNITS/ML 3 ML PEN SC SCH ×2 (08:05→20:52)
[2019-11-20] MEDS: PANTOprazole 40 MG TAB PO SCH (08:05)
[2019-11-20] MEDS: INSULIN ASPART 100 UNITS/ML 3 ML PEN SC SCH ×4 (08:07→20:52)
[2019-11-20 08:51] LABS: Basophils # (auto) 0.02 K/uL (0-0.2); Basophils % (auto) 0.2 %; Eosinophils % (auto) 1.1 %; Hematocrit (blood only) 39.4 % (37-47); Hemoglobin 12.7 g/dL (12.0-16.0); Immature Granulocytes # (auto) 0.03 K/uL (0.00-0.02); Immature Granulocytes % (auto) 0.3 %; Lymphocytes % (auto) 5.7 %; Mean Corpuscular Hemoglobin 28.9 pg (25-34); Mean Corpuscular Hgb Conc 32.2 g/dL (32-36); Mean Corpuscular Volume 89.7 fL (80-100); Mean Platelet Volume 10.7 fL (7.4-10.4); Monocytes # (auto) 0.53 K/uL (0.11-0.59); Monocytes % (auto) 6.1 %; Neutrophils # (auto) 7.54 K/uL (1.4-6.5); Neutrophils % (auto) 86.6 %; Platelet Count 196 K/uL (130-400); RDW Coefficient of Variation 14.9 % (11.5-14.5); RDW Standard Deviation 48.5 fL (36.4-46.3); Red Blood Count 4.39 M/uL (4.2-5.4); White Blood Count 8.72 K/uL (4.8-10.8)
[2019-11-20 08:58] LABS: INR 2.4 (0.9-1.1); Prothrombin Time 22.8 Seconds (9.0-12.0)
[2019-11-20 09:25] LABS: BUN Creatinine Ratio 26.7 (10-20); Calcium 8.5 mg/dl (8.5-10.1); Est GFR (African American) 21.3; Est GFR (Non-African American) 18.4; Potassium 3.6 mmol/L (3.5-5.1)
[2019-11-20 09:26] LABS: Estimated Average Glucose 206 mg/dl; Hemoglobin A1C 8.8 % (4.5-5.6)
[2019-11-20] MEDS ORDERED: LACTATED RINGER'S 1,000 ML IV SCH (10:30)
--- NOTE | 2019-11-20 11:29 | Electrocardiogram Report ---
Test Reason : Blood Pressure : / mmHG Vent. Rate : 075 BPM Atrial Rate : 075 BPM P-R Int : 230 ms QRS Dur : 120 ms QT Int : 436 ms P-R-T Axes : 061 -47 132 degrees QTc Int : 486 ms Sinus rhythm with 1st degree A-V block with Premature supraventricular complexes Left axis deviation Left ventricular hypertrophy with QRS widening and repolarization abnormality Abnormal ECG When compared with ECG of 19-NOV-2019 16:09, Premature supraventricular complexes are now Present HR has decreased by 32 bpm Confirmed by Cal Ruiz ([id number]) on 11/20/2019 11:28:54 AM Referred By: REFERRED SELF Confirmed By:Cal Ruiz
--- NOTE | 2019-11-20 11:46 | XCELERA ---
[id number] \\[id number]
[2019-11-20] MEDS ORDERED: CRANBERRY FRUIT 500 MG PO SCH (12:00)
[2019-11-20] MEDS: GUAIFENESIN/CODEINE 200MG/20MG 10ML UDC PO PRN ×2 (13:07→20:52)
[2019-11-20] MEDS: ACETAMINOPHEN 325 MG TAB PO PRN ×2 (13:07→23:32)
--- NOTE | 2019-11-20 13:30 | Hospitalist Progress Note ---
Date of Service November 20, 2019 Assessment & Plan (1) Nausea vomiting and diarrhea: Beverley Baer is a 74 year old woman with pmh of CAD, HLD, DMII, A Fib, GERD, gastroparesis here for vomiting and diarrheal illness Likely secondary to GI virus that is going around her family currently Clostridium difficile pending, will treat accordingly still appear dry clinically, will give LR at 80cc/hr for 1 liter bag zofran for nausea Abnormal ECG Lateral T wave inversions and evidence of possible septal infarct since last ECG Evidence of LVH Initial troponin negative, repeat tomorrow Repeat ECG with any chest pain echo is normal discussed with Dr. Ruiz, no further work up planned Leukocytosis Likely secondary to demargination from frequent vomiting or possible viral illness WBC normal today follow up C diff testing A fib Continuing with home warfarin regimen and metoprolol for rate control INR is 2.4 Gastroparesis Holding home metoclopramide in setting of diarrheal illness DMII Patient placed on subQ insulin regimen, with sliding scale will adjust as needed monitor for hypoglycemia, no episodes F/E/N: advance diet as tolerated DVT PPx: Warfarin Dispo: keep on tele for now, likely to medical floor later today or tomorrow (2) Leukocytosis: (3) Substernal chest pain: (4) Abnormal ECG: (5) HTN (hypertension): (6) Diabetes type 2, uncontrolled: (7) alf (current) use of anticoagulants: (8) Asthma: (9) Dyslipidemia: (10) Diabetic foot ulcer: (11) Essential hypertension: (12) GERD without esophagitis: (13) Obstructive sleep apnea of adult: (14) Paroxysmal atrial fibrillation: Subjective patient doing okay, less nausea today, no vomiting still with some loose stools but less frequent no abdominal pain, no fever/chills reviewed with Dr. Ruiz, plan to check one more troponin, no further work up recommended reviewed labs, WBC down to 8k from 19k, Cr stable at 2.46 she still feels dry, mucous membranes dry, she has painful muscle cramps and headache she is trying to drink more but no success Review of Systems Review of Systems: All systems reviewed & are unremarkable except as noted in HPI & below Respiratory: no cough and no dyspnea Cardiovascular: no chest pain Gastrointestinal: + nausea and + diarrhea/loose stools; no abdominal pain, no vomiting and no constipation Physical Exam Constitutional: WD/WN, vitals as above + overweight Eyes: PERRL, conjunctivae normal, anicteric sclerae ENMT: external ear and nose normal, oropharynx normal Neck: trachea midline, no thyromegaly Respiratory: normal respiratory effort, lungs clear to auscultation Cardiovascular: RRR, no murmur, no edema Gastrointestinal (Abdomen): normal bowel sounds, soft, nontender, no hepatosplenomegaly Musculoskeletal: no cyanosis or clubbing, extremities motor strength 5/5 Skin: no rashes, warm and dry Neurologic: patellar DTR's 2+ bilat, sensation intact and PERRL, EOMI, accommodation nl, no face palsy, no dysarthria Psychiatric: A+Ox3, euthymic affect Lymphatic: no cervical or axillary lymphadenopathy Results & Data ([facility]) Vital Signs (Past 12 Hours) Vital Signs Temp Pulse Pulse Resp BP Pulse Ox 11/20/19 11:37 37.6 C H 74 18 138/77 93 11/20/19 08:00 80 11/20/19 07:51 37.7 C H 76 18 147/72 H 93 11/20/19 04:00 37.2 C 80 18 156/71 H 95 Laboratory Results Laboratory Results - last 24 hr 11/19/19 11/19/19 11/19/19 16:13 16:40 16:51 WBC 19.41 H RBC 4.93 Hgb 14.8 Hct 43.5 MCV 88.2 MCH 30.0 MCHC 34.0 RDW Std Deviation 46.7 H RDW Coeff of Melonie 14.6 H Plt Count 222 MPV 10.0 Immature Gran % (Auto) 0.4 Neut % (Auto) 93.3 Lymph % (Auto) 4.1 [place] % (Auto) 1.6 Eos % (Auto) 0.5 Baso % (Auto) 0.1 Immature Gran # (Auto) 0.08 H Neut # (Auto) 18.10 H Lymph # (Auto) 0.79 L [place] # (Auto) 0.32 Eos # (Auto) 0.10 Baso # (Auto) 0.02 PT INR Sodium Potassium Chloride Carbon Dioxide Anion Gap BUN Creatinine Est Cr Clr Drug Dosing Est GFR ( Amer) Est GFR (Non-Af Amer) BUN/Creatinine Ratio Glucose POC Glucose 156 H Estimat Average Glucose Hemoglobin A1c Calcium Magnesium Total Bilirubin AST ALT Alkaline Phosphatase Troponin I Total Protein Albumin Globulin Albumin/Globulin Ratio TSH Specimen Hemolysis Stl C. diff Tox B Gene Influenza Type A Ag Neg for Influ A Influenza Type B Ag Neg for Influ B 11/19/19 11/19/19 11/19/19 16:51 16:51 17:45 WBC RBC Hgb Hct MCV MCH MCHC RDW Std Deviation RDW Coeff of Melonie Plt Count MPV Immature Gran % (Auto) Neut % (Auto) Lymph % (Auto) [place] % (Auto) Eos % (Auto) Baso % (Auto) Immature Gran # (Auto) Neut # (Auto) Lymph # (Auto) [place] # (Auto) Eos # (Auto) Baso # (Auto) PT Cancelled 25.1 H INR Cancelled 2.6 H Sodium 138 Potassium 4.0 Chloride 104 Carbon Dioxide 25 Anion Gap 9.0 BUN 66 H Creatinine 2.29 H Est Cr Clr Drug Dosing 22.8 Est GFR ( Amer) 23.3 Est GFR (Non-Af Amer) 20.1 BUN/Creatinine Ratio 28.7 H Glucose 152 H POC Glucose Estimat Average Glucose Hemoglobin A1c Calcium 9.6 Magnesium 2.4 Total Bilirubin 0.3 AST 21 ALT 22 Alkaline Phosphatase 46 Troponin I < 0.015 Total Protein 8.5 H Albumin 4.0 Globulin 4.5 H Albumin/Globulin Ratio 0.9 TSH 3.200 Specimen Hemolysis Stl C. diff Tox B Gene Influenza Type A Ag Influenza Type B Ag 11/19/19 11/19/19 11/20/19 19:49 23:39 07:36 WBC RBC Hgb Hct MCV MCH MCHC RDW Std Deviation RDW Coeff of Melonie Plt Count MPV Immature Gran % (Auto) Neut % (Auto) Lymph % (Auto) [place] % (Auto) Eos % (Auto) Baso % (Auto) Immature Gran # (Auto) Neut # (Auto) Lymph # (Auto) [place] # (Auto) Eos # (Auto) Baso # (Auto) PT INR Sodium Potassium Chloride Carbon Dioxide Anion Gap BUN Creatinine Est Cr Clr Drug Dosing Est GFR ( Amer) Est GFR (Non-Af Amer) BUN/Creatinine Ratio Glucose POC Glucose 157 H 165 H 190 H Estimat Average Glucose Hemoglobin A1c Calcium Magnesium Total Bilirubin AST ALT Alkaline Phosphatase Troponin I Total Protein Albumin Globulin Albumin/Globulin Ratio TSH Specimen Hemolysis Stl C. diff Tox B Gene Influenza Type A Ag Influenza Type B Ag 11/20/19 11/20/19 11/20/19 08:01 08:01 08:01 WBC 8.72 D RBC 4.39 Hgb 12.7 Hct 39.4 MCV 89.7 MCH 28.9 MCHC 32.2 RDW Std Deviation 48.5 H RDW Coeff of Melonie 14.9 H Plt Count 196 MPV 10.7 H Immature Gran % (Auto) 0.3 Neut % (Auto) 86.6 Lymph % (Auto) 5.7 [place] % (Auto) 6.1 Eos % (Auto) 1.1 Baso % (Auto) 0.2 Immature Gran # (Auto) 0.03 H Neut # (Auto) 7.54 H Lymph # (Auto) 0.50 L [place] # (Auto) 0.53 Eos # (Auto) 0.10 Baso # (Auto) 0.02 PT 22.8 H INR 2.4 H Sodium Potassium Chloride Carbon Dioxide Anion Gap BUN Creatinine Est Cr Clr Drug Dosing Est GFR ( Amer) Est GFR (Non-Af Amer) BUN/Creatinine Ratio Glucose POC Glucose Estimat Average Glucose 206 Hemoglobin A1c 8.8 H Calcium Magnesium Total Bilirubin AST ALT Alkaline Phosphatase Troponin I Total Protein Albumin Globulin Albumin/Globulin Ratio TSH Specimen Hemolysis Stl C. diff Tox B Gene Influenza Type A Ag Influenza Type B Ag 11/20/19 11/20/19 11/20/19 08:01 11:34 12:40 WBC RBC Hgb Hct MCV MCH MCHC RDW Std Deviation RDW Coeff of Melonie Plt Count MPV Immature Gran % (Auto) Neut % (Auto) Lymph % (Auto) [place] % (Auto) Eos % (Auto) Baso % (Auto) Immature Gran # (Auto) Neut # (Auto) Lymph # (Auto) [place] # (Auto) Eos # (Auto) Baso # (Auto) PT INR Sodium 139 Potassium 3.6 Chloride 106 Carbon Dioxide 24 Anion Gap 9.0 BUN 66 H Creatinine 2.46 H Est Cr Clr Drug Dosing 21.0 Est GFR ( Amer) 21.3 Est GFR (Non-Af Amer) 18.4 BUN/Creatinine Ratio 26.7 H Glucose 190 H POC Glucose 165 H Estimat Average Glucose Hemoglobin A1c Calcium 8.5 Magnesium Total Bilirubin AST ALT Alkaline Phosphatase Troponin I Total Protein Albumin Globulin Albumin/Globulin Ratio TSH Specimen Hemolysis Stl C. diff Tox B Gene Pending Influenza Type A Ag Influenza Type B Ag Medications Administered Current Inpatient Medications Acetaminophen (Tylenol) 650 mg PO Q4H PRN PRN Reason: Pain or Fever Stop: 12/19/19 22:30 Last Admin: 11/20/19 13:07 Dose: 650 mg Documented by: Allopurinol (Zyloprim) 100 mg PO QAM [facility] Stop: 12/20/19 08:59 Last Admin: 11/20/19 08:05 Dose: 100 mg Documented by: Bumetanide (Bumex) 2 mg PO BID17 [facility] Stop: 12/19/19 22:30 Last Admin: 11/20/19 08:04 Dose: 2 mg Documented by: Calcitriol (Rocaltrol) 0.25 mcg PO DAILY [facility] Stop: 12/20/19 08:59 Last Admin: 11/20/19 08:04 Dose: 0.25 mcg Documented by: Clonazepam (Klonopin) 0.5 mg PO HS [facility] Stop: 12/19/19 22:30 Last Admin: 11/19/19 23:37 Dose: 0.5 mg Documented by: Dextrose (Dextrose 50%) 25 - 50 ml IV UD PRN; Protocol PRN Reason: Hypoglycemia Protocol Stop: 12/19/19 22:30 Duloxetine HCl (Cymbalta) 30 mg PO QAOK [facility] [place] Stop: 12/20/19 08:59 Last Admin: 11/20/19 08:05 Dose: 30 mg Documented by: Glucagon (Glucagen) 1 mg SQ UD PRN; Protocol PRN Reason: Hypoglycemia Protocol Stop: 12/19/19 22:30 Glucose (Dex4 Glucose) 4 - 8 tabs PO UD PRN; Protocol PRN Reason: Hypoglycemia Protocol Stop: 12/19/19 22:30 Glucose (Glucose 40%) 15 - 30 gm PO UD PRN; Protocol PRN Reason: Hypoglycemia Protocol Stop: 12/19/19 22:30 Guaifenesin/Codeine Phosphate (Robitussin-Ac Sugar Free) 10 ml PO Q6H PRN PRN Reason: Cough Stop: 12/20/19 11:55 Last Admin: 11/20/19 13:07 Dose: 10 ml Documented by: Lactated Ringer's (Lr) 1,000 mls @ 80 mls/hr IV .[id number] [facility] Stop: 11/20/19 22:59 Last Admin: 11/20/19 11:47 Dose: 80 mls/hr Documented by: Insulin Aspart (Novolog Flexpen) 0 units SC ACHS [facility] Stop: 12/19/19 22:30 Last Admin: 11/20/19 13:09 Dose: Not Given Documented by: Insulin Glargine (Lantus Solostar Pen) 30 units SC BID [facility] Stop: 12/19/19 22:30 Last Admin: 11/20/19 08:05 Dose: 30 units Documented by: Isosorbide Mononitrate (Imdur Extended Rel) 90 mg PO DAILY [facility] Stop: 12/20/19 08:59 Last Admin: 11/20/19 08:05 Dose: 90 mg Documented by: Levothyroxine Sodium (Synthroid) 75 mcg PO DAILYBB [facility] Stop: 12/20/19 06:29 Last Admin: 11/20/19 06:26 Dose: 75 mcg Documented by: Metoprolol Tartrate (Lopressor) 25 mg PO DAILY [facility] Stop: 12/20/19 08:59 Last Admin: 11/20/19 08:05 Dose: 25 mg Documented by: Miscellaneous (Order Awaiting Action) 1 ea N/A QS [facility] Stop: 12/20/19 00:00 Last Admin: 11/20/19 12:02 Dose: Not Given Documented by: Miscellaneous (Carbohydrates For Hypoglycemia) 15 - 30 gm PO UD PRN PRN Reason: Hypoglycemia Protocol Stop: 12/19/19 22:30 Nitroglycerin (Nitrostat) 0.4 mg SL UD PRN PRN Reason: Chest Pain Stop: 12/19/19 22:30 Ondansetron HCl (Zofran) 4 mg IV Q6H PRN PRN Reason: Nausea Stop: 12/19/19 22:30 Pantoprazole Sodium (Protonix) 40 mg PO DAILY [facility] Stop: 12/20/19 08:59 Last Admin: 11/20/19 08:05 Dose: 40 mg Documented by: Spironolactone (Aldactone) 50 mg PO BID17 [facility] Stop: 12/19/19 22:30 Last Admin: 11/20/19 08:05 Dose: 50 mg Documented by: Terconazole (Terazol 7) 1 appln PV Q2D PRN PRN Reason: Rash Stop: 02/14/20 22:30 Warfarin Sodium (Coumadin) 5 mg PO MoTh@1600 [facility] Stop: 12/22/19 15:59 Warfarin Sodium (Coumadin) 2.5 mg PO SuTuWeFrSa@1600 [facility] Stop: 12/20/19 15:59 PG Care Time/CCT Total # of Minutes Spent Total Time Spent with Patient: Total time spent is greater than 50% in coordination of care (as documented) at patient's floor/unit and/or counseling patient: Coding Level of Care Code 55403 Subseq Hosp Care Lvl 3 Diagnoses Nausea vomiting and diarrhea R11.2; R19.7 Leukocytosis D72.829 Leukocytosis type: unspecified Substernal chest pain R07.2 Abnormal ECG R94.31 HTN (hypertension) I10 Diabetes type 2, uncontrolled 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
--- NOTE | 2019-11-20 14:08 | Cardiology Consultation ---
Date of Consultation November 20, 2019 Assessment & Plan (1) Abnormal ECG: (2) Chronic diastolic (congestive) heart failure: (3) CKD (chronic kidney disease), stage IV: (4) Diabetes: (5) HTN (hypertension): (6) Nausea vomiting and diarrhea: (7) Paroxysmal A-fib: Patient with presumed but undocumented coronary artery disease who was admitted with GI symptoms without significant chest pain (equivocal whether she had any chest discomfort). She has done well overnight clinically with no evidence of ongoing myocardial ischemia based on symptoms, serial ECGs, and at least initial enzyme draw. Recommend repeat troponin, in the absence of dramatic elevation would attribute her nausea/vomiting/diarrhea to noncardiac cause, and would not pursue further cardiac work-up at this time. Although her echo suggested reduce central venous pressure, neck veins appeared euvolemic and her renal function is at baseline. Therefore, reasonable to continue her usual diuretic regimen, but if her diarrhea increases may need to hold diuretic temporarily. Case discussed with Dr. Jenkins. History of Present Illness Reason for Consultation: Abnormal ECG Requesting Physician: Steve Young MD Attending Physician: Akbar Jenkins DO History of Present Illness 74-year-old woman with multiple medical problems including DM, HTN, CKD, COPD, chronic diastolic CHF (on twice daily Bumex) and paroxysmal atrial fibrillation (warfarin/metoprolol) as well as multiple cardiovascular risk factors but no documented coronary disease who was admitted yesterday after abrupt onset of nausea, vomiting, and diarrhea. Her sister and both were recently sick with nausea and vomiting as well. The patient denied to me any chest pain, dyspnea, subjective palpitations, presyncope, or syncope. The admission note states that she may have had transient chest discomfort in the ambulance on the way to the ER. She denied any chest pain overnight and her nausea and vomiting completely resolved. She ate a good breakfast and lunch, she is still having some diarrhea (2 loose bowel movements overnight). She has mild diffuse abdominal discomfort. 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 During her current hospitalization, her initial troponin was negative, repeat troponins pending. ECGs during this hospitalization show sinus rhythm with first-degree AV block, atrial ectopy, and LVH with QRS widening and repolarization abnormality. No ECG evolution or acute ST abnormalities. Echocardiogram showed normal LV function with no regional wall motion abnorma lities. Compared with January 2018 study, her inferior vena cava diameter is now reduced (suggesting reduced central venous pressure), otherwise no significant change. At the time of my evaluation, she had only mild abdominal discomfort and no other complaints. Allergies Allergy/AdvReac Type Severity Reaction Status Date / Time clarithromycin Allergy Intermediate RASH AND Verified 11/19/19 16:46 ITCHING Home Medications Home Medications Medication Instructions Recorded Confirmed Type nitroglycerin [Nitrostat] 0.4 mg UT UD PRN #0 09/28/09 11/19/19 History spironolactone 50 mg PO BID #0 09/28/09 11/19/19 History ezetimibe-simvastatin [Vytorin 1 tab PO HS #0 12/08/15 11/19/19 History 10-40] cranberry fruit concentrate 250 mg 500 mg PO DAILY@12 tab 08/20/18 11/19/19 History chewable tablet betamethasone dipropionate 0.05 % 1 appln TOPICAL UD PRN gm 05/10/19 11/19/19 History topical cream docusate sodium 100 mg capsule 100 mg PO QID cap 05/10/19 11/19/19 History fexofenadine 180 mg tablet 180 mg PO DAILY tab 05/10/19 11/19/19 History lancets 33 gauge #100 ea 05/10/19 11/15/19 History duloxetine 30 mg capsule,delayed 30 mg PO QAM #90 cap 06/18/19 11/19/19 Rx release metoclopramide HCl 10 mg tablet 10 mg PO QPM #90 tab 06/29/19 11/19/19 Rx allopurinol 100 mg tablet 100 mg PO QAM #90 tab 07/14/19 11/19/19 Rx terconazole 0.4 % vaginal cream 1 appl PV Q2D PRN gm 08/16/19 11/19/19 History blood sugar diagnostic #400 ea 09/07/19 11/15/19 Rx potassium chloride 20 mEq 20 meq PO DAILY #90 tab 09/14/19 11/19/19 Rx tablet,extended release(part/cryst) insulin aspart U-100 100 unit/mL 0 unit SUBCUT UD syr 09/21/19 11/19/19 History (3 mL) subcutaneous pen levothyroxine 75 mcg tablet 75 mcg PO DAILY #30 tab 09/22/19 11/19/19 Rx calcitriol 0.25 mcg capsule 0.25 mcg PO DAILY #90 cap 09/24/19 11/19/19 Rx fenofibric acid (choline) 135 mg 135 mg PO QAM 90 Days #90 cap 09/24/19 11/19/19 Rx capsule,delayed release metoprolol tartrate 25 mg tablet 25 mg PO DAILY #90 tab 09/24/19 11/19/19 Rx bumetanide 2 mg tablet 2 mg PO BID 90 Days #180 tab 10/07/19 11/19/19 Rx azelastine 137 mcg (0.1 %) nasal 2 sprays INTNAS BID #90 ml 10/28/19 11/19/19 Rx spray aerosol clonazepam 0.5 mg tablet 0.5 mg PO HS #90 tab 10/28/19 11/19/19 Rx pantoprazole 40 mg tablet,delayed 40 mg PO DAILY #90 tab 11/16/19 11/19/19 Rx release pen needle, diabetic 31 gauge x ea 11/16/19 History 12/26" ergocalciferol (vitamin D2) 50,000 unit PO UD 11/19/19 11/19/19 History insulin glargine [Basaglar KwikPen 64 unit SC BID 11/19/19 11/19/19 History U-100 Insulin] isosorbide mononitrate 90 mg PO DAILY 11/19/19 11/19/19 History warfarin 0 mg PO UD 11/19/19 11/19/19 History Patient History Medical History Acute osteomyelitis Cataract Cellulitis CHF (congestive heart failure) Constipation Decubitus ulcer Gastric ulcer Gastroparesis Herpes zoster Pneumonia Vaginitis Surgical History H/O adenoidectomy H/O hand surgery H/O knee surgery H/O: hysterectomy Hx of salpingo-oophorectomy, bilateral S/P tonsillectomy Family History Liver cancer Ovarian cancer Sister Emphysema, unspecified Father Uterine cancer Sister Social History Preferred Language: Danish Communication Ability: Effective Visual Impairment: Limited Hearing Ability: Normal 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 Beliefs That Will Affect Care: None marital status: Single Current Living Situation: Alone current occupational status: retired Other Information That Helps Us Care for You: No Feels Safe at Home: Yes Safety Concerns: Feels Safe At This Time Smoking Status: Never smoker Hx Alcohol Use: No Hx Substance Use: No Dental Care, Regularly: Yes Physical Activity Frequency: Does not Exercise Seatbelt Use: always Do you think of yourself as: straight/heterosexual Review of Systems Constitutional: + fatigue; no fever, no chills, no weight loss and no weight gain Eyes: no problem reported Ear, Nose, Mouth, Throat: no problem reported Respiratory: no cough and no dyspnea Cardiovascular: as per Subjective / HPI Gastrointestinal: as per Subjective / HPI, + abdominal pain and + change in stools Genitourinary: no problem reported Musculoskeletal: no myalgia Integumentary: no rash and no new lesions Neurologic: no falls and no syncope Psychiatric: no problem reported Hematologic / Lymphatic: + easy bruising; no easy bleeding Physical Exam Physical Exam: No distress. Skin: no ecchymoses or generalized lesions. HEENT: unremarkable. Neck: Jugular venous pulse just above the clavicle. No carotid bruits. Lungs: Mildly decreased breath sounds but clear bilaterally. Cardiac: regular rhythm with frequent ectopy, 2/6 apical holosystolic murmur which is nonradiating, no gallop. Abdomen: Diffuse mild tenderness most notable in the right upper quadrant. Extremities: Trace to 1+ pretibial edema, pulses brisk. Neurologic: normal affect, nonfocal. Results & Data Vital Signs (Past 12 Hours) Vital Signs Temp Pulse Pulse Resp BP Pulse Ox 11/20/19 11:37 99.7 F H 74 18 138/77 93 11/20/19 08:00 80 11/20/19 07:51 99.9 F H 76 18 147/72 H 93 11/20/19 04:00 99.0 F 80 18 156/71 H 95 Laboratory Results 11/19/19 11/20/19 16:51 08:01 BUN 66 H Creatinine 2.46 H Troponin I < 0.015 Diagnostic Findings Echocardiogram showed EF 55 to 60% with no regional wall motion normalities. Mild aortic regurgitation which is chronic. Reduced inferior vena caval diameter suggest reduce central venous pressure. Compared with January 2018 study, decreased inferior vena caval diameter noted, otherwise no significant change. Initial ECG showed sinus tachycardia at 107 bpm, left ventricular hypertrophy with QRS widening and repolarization abnormality. Compared with 02/26/2018 study, increased rate but otherwise unchanged. ECG today showed sinus rhythm at 75 bpm with PACs and no change in the LVH with QRS widening and repolarization abnormality. Chest x-ray showed cardiomegaly with mild pulmonary vascular congestion. PG Care Time/CCT Total # of Minutes Spent Total Time Spent with Patient: Total time spent is greater than 50% in coordination of care (as documented) at patient's floor/unit and/or counseling patient: Coding Level of Care Code 32843 Inpt Consult Level 4 Diagnoses Abnormal ECG R94.31 Chronic diastolic (congestive) heart failure I50.32 CKD (chronic kidney disease), stage IV N18.4 Diabetes E11.9 HTN (hypertension) I10 Nausea vomiting and diarrhea R11.2; R19.7 Paroxysmal A-fib I48.0
[2019-11-20] MEDS: LOPERAMIDE HCL 2 MG CAP PO PRN ×2 (16:41→23:13)
[2019-11-20] MEDS: WARFARIN SOD 2.5 MG TAB PO SCH (16:44)
[2019-11-20] MEDS: clonazePAM 0.5 MG TAB PO SCH (20:52)
[2019-11-20] MEDS: ONDANSETRON INJ 2 MG/ML 2 ML VIAL IV PRN (23:32)
--- NOTE | 2019-11-21 00:40 | Billing Data ---
Date of Service November 21, 2019 Coding Level of Care Code 41458 Initial Inpt Care Lvl 3
--- NOTE | 2019-11-21 00:49 | Communication Note ---
Date of Service: November 21, 2019 Seen at bedside for report of 10/10 pain not improved with tylenol. Pt napping prior to entering room. Pt reports pain increased over prior 1-2 hours. Pain limited to RLQ, is not spreading and is crampy in quality. On exam abdomen is nonrigid, without rebound with low suspicion for acute abdomen. BS increased. Toradol/NSAIDs limited by kidney disease. Nursing encouraged to give APAP, morphine 1mg IV added for breakthrough pain.
[2019-11-21] MEDS: MoRPHine SULFATE 2 MG/ML CARP IV PRN ×4 (01:51→21:02)
[2019-11-21] MEDS: LEVOTHYROXINE SODIUM 75 MCG TABLET PO SCH (06:26)
[2019-11-21 07:04] LABS: Basophils # (auto) 0.01 K/uL (0-0.2); Basophils % (auto) 0.1 %; Eosinophils # (auto) 0.27 K/uL (0-0.5); Eosinophils % (auto) 3.8 %; Hematocrit (blood only) 34.9 % (37-47); Hemoglobin 11.4 g/dL (12.0-16.0); Immature Granulocytes # (auto) 0.03 K/uL (0.00-0.02); Immature Granulocytes % (auto) 0.4 %; Lymphocytes # (auto) 1.02 K/uL (1.2-3.4); Lymphocytes % (auto) 14.4 %; Mean Corpuscular Hemoglobin 28.7 pg (25-34); Mean Corpuscular Hgb Conc 32.7 g/dL (32-36); Mean Corpuscular Volume 87.9 fL (80-100); Mean Platelet Volume 9.6 fL (7.4-10.4); Monocytes # (auto) 0.58 K/uL (0.11-0.59); Monocytes % (auto) 8.2 %; Neutrophils # (auto) 5.16 K/uL (1.4-6.5); Neutrophils % (auto) 73.1 %; Platelet Count 170 K/uL (130-400); RDW Standard Deviation 47.9 fL (36.4-46.3); Red Blood Count 3.97 M/uL (4.2-5.4); White Blood Count 7.07 K/uL (4.8-10.8)
[2019-11-21 07:11] LABS: Prothrombin Time 19.8 Seconds (9.0-12.0)
[2019-11-21] MEDS: LOPERAMIDE HCL 2 MG CAP PO PRN ×3 (07:29→19:16)
[2019-11-21] MEDS: ACETAMINOPHEN 325 MG TAB PO PRN ×3 (07:29→23:43)
[2019-11-21] MEDS: PANTOprazole 40 MG TAB PO SCH (07:29)
[2019-11-21] MEDS: BUMETANIDE 1 MG TAB PO SCH (07:30)
[2019-11-21] MEDS: allopurinoL 100 MG TAB PO SCH (07:30)
[2019-11-21] MEDS: METOPROLOL TARTRATE 25 MG TAB PO SCH (07:30)
[2019-11-21] MEDS: ISOSORBIDE MONO EXTENDED REL 30 MG TABCR PO SCH (07:30)
[2019-11-21] MEDS: DULOXETINE HCL 30 MG CAP PO SCH (07:31)
[2019-11-21] MEDS: SPIRONOLACTONE 25 MG TAB PO SCH ×2 (07:31→16:17)
[2019-11-21] MEDS: CALCITRIOL 0.25 MCG CAPSULE PO SCH (07:31)
[2019-11-21] MEDS: GUAIFENESIN/CODEINE 200MG/20MG 10ML UDC PO PRN (07:35)
[2019-11-21 07:39] LABS: BUN Creatinine Ratio 28.3 (10-20); Blood Urea Nitrogen 65 mg/dl (7-18); Carbon Dioxide 23 mmol/L (21-32); Chloride 105 mmol/L (98-107); Creatinine Clr Calc Pharmacy 22.5 ml/min; Est GFR (African American) 23.3; Est GFR (Non-African American) 20.1; Glucose 158 mg/dl (70-99); Potassium 3.2 mmol/L (3.5-5.1); Sodium 136 mmol/L (136-145)
[2019-11-21 07:43] LABS: Troponin I < 0.015 ng/ml (0-0.045)
[2019-11-21] MEDS ORDERED: POTASSIUM CHLORIDE 20 MEQ TABCR PO STA (09:51)
--- NOTE | 2019-11-21 10:09 | Electrocardiogram Report ---
Test Reason : Blood Pressure : / mmHG Vent. Rate : 076 BPM Atrial Rate : 076 BPM P-R Int : 232 ms QRS Dur : 124 ms QT Int : 424 ms P-R-T Axes : 050 -43 122 degrees QTc Int : 477 ms Sinus rhythm with 1st degree A-V block with Premature atrial complexes Left axis deviation Left ventricular hypertrophy with QRS widening and repolarization abnormality Abnormal ECG When compared with ECG of 20-NOV-2019 07:29, No significant change was found Confirmed by Cal Ruiz ([id number]) on 11/21/2019 10:09:12 AM Referred By: REFERRED SELF Confirmed By:Cal Ruiz
[2019-11-21] MEDS: INSULIN ASPART 100 UNITS/ML 3 ML PEN SC SCH ×4 (10:20→20:56)
--- NOTE | 2019-11-21 10:35 | Cardiology Progress Note ---
Date of Service November 21, 2019 Assessment & Plan (1) Abnormal ECG: (2) Chronic diastolic (congestive) heart failure: (3) CKD (chronic kidney disease), stage IV: (4) Diabetes: (5) HTN (hypertension): (6) Nausea vomiting and diarrhea: (7) Paroxysmal A-fib: Patient with presumed but undocumented coronary artery disease who was admitted with GI symptoms without significant chest pain. She has not had any symptoms suggestive of myocardial ischemia, her repeat troponin this morning was normal, and her ECG is unchanged. in the absence of troponin elevation would attribute her nausea/vomiting/diarrhea to noncardiac cause, and would not pursue further cardiac work-up at this time. She appears euvolemic on exam and her renal function remains stable. Therefore, reasonable to continue her usual diuretic regimen, but if her diarrhea increases may need to hold diuretic temporarily. Will sign off from a cardiac standpoint, please call if her clinical status changes or if there are any further cardiac concerns. Thank you for this consultation. Subjective Patient continues to have abdominal pain (most notable right upper quadrant) with loose bowel movements and some nausea but no further vomiting. She denies any chest pain or dyspnea. No orthopnea or ankle edema. Due to her nausea, she ate less for breakfast today. Aside from abdominal discomfort and nausea, no other complaints. Physical Exam Physical Exam: No distress. Skin: no ecchymoses or generalized lesions. HEENT: unremarkable. Neck: Jugular venous pulse just above the clavicle. No carotid bruits. Lungs: Mildly decreased breath sounds but clear bilaterally. Cardiac: regular rhythm with frequent ectopy, 2/6 apical holosystolic murmur which is nonradiating, no gallop. Abdomen: Diffuse mild tenderness most notable in the right upper quadrant. Extremities: Trace pretibial edema, pulses brisk. Neurologic: normal affect, nonfocal. Results & Data Vital Signs (Past 12 Hours) Vital Signs Temp Pulse Pulse Resp BP Pulse Ox 11/21/19 08:03 99.3 F 74 18 141/79 H 94 11/21/19 08:00 76 11/21/19 03:11 98.8 F 70 18 148/77 H 94 11/20/19 23:16 98.2 F 68 18 137/65 95 Laboratory Results 11/21/19 06:42 BUN 65 H Creatinine 2.29 H Troponin I < 0.015 Diagnostic Findings ECG today showed sinus rhythm with first-degree AV block and PACs, LVH with QRS widening and repolarization abnormality. Compared with ECG from yesterday, no significant change. PG Care Time/CCT Total # of Minutes Spent Total Time Spent with Patient: Total time spent is greater than 50% in coordination of care (as documented) at patient's floor/unit and/or counseling patient: Coding Level of Care Code 84528 Subseq Hosp Care Lvl 3 Diagnoses Abnormal ECG R94.31 Chronic diastolic (congestive) heart failure I50.32 CKD (chronic kidney disease), stage IV N18.4 Diabetes E11.9 HTN (hypertension) I10 Nausea vomiting and diarrhea R11.2; R19.7 Paroxysmal A-fib I48.0
[2019-11-21] MEDS: CHOLESTYRAMINE LIGHT 4 GM PKT PO SCH ×2 (11:17→22:31)
[2019-11-21] MEDS: INSULIN GLARGINE SOLOSTAR 100 UNITS/ML 3 ML PEN SC SCH ×2 (11:18→20:57)
--- NOTE | 2019-11-21 15:02 | Hospitalist Progress Note ---
Date of Service November 21, 2019 Assessment & Plan (1) Nausea vomiting and diarrhea: Beverley Baer is a 74 year old woman with pmh of CAD, HLD, DMII, A Fib, GERD, gastroparesis here for vomiting and diarrheal illness - Likely secondary to GI virus that is going around her family currently Clostridium difficile negative appears euvolemic after fluids yesterday, eating and drinking much more today still with diarrhea, treat with Imodium and add Questran today zofran for nausea - Hypokalemia: PO replacement ordered this AM - Abnormal ECG Lateral T wave inversions and evidence of possible septal infarct since last ECG Evidence of LVH Initial troponin negative, repeat negative this morning echo is normal discussed with Dr. Ruiz, no further work up planned downgrade to medical floor today - Leukocytosis Likely secondary to demargination from frequent vomiting or possible viral illness WBC normal past two days C diff testing negative - A fib Continuing with home warfarin regimen and metoprolol for rate control INR is 2.0 transfer off tele - Gastroparesis Holding home metoclopramide in setting of diarrheal illness - DMII Patient placed on subQ insulin regimen, with sliding scale will adjust as needed monitor for hypoglycemia, no episodes today - Chronic diastolic HF examines euvolemic, will hold Bumex this afternoon as she is having diarrhea can resume diuretics on discharge F/E/N: advance diet as tolerated DVT PPx: Warfarin Dispo: medical floor, consult PT/OT for evaluation to make sure she is safe to go home anticipate that she could be discharged tomorrow (2) Leukocytosis: (3) Substernal chest pain: (4) Abnormal ECG: (5) HTN (hypertension): (6) Diabetes type 2, uncontrolled: (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: (8) Asthma: (9) Dyslipidemia: (10) Diabetic foot ulcer: (11) Essential hypertension: (12) GERD without esophagitis: (13) Obstructive sleep apnea of adult: (14) Paroxysmal atrial fibrillation: (15) Hypokalemia: Subjective patient getting better, still with loose stools but she is eating better appears to be fully hydrated at this time discussed holding Bumex this afternoon, she agreed will add some Questran with Imodium, told RN to give a dose this morning reviewed labs, CBC stable with normal WBC INR is 2.0, K is 3.2, Cr stable at 2.29 ambulating to the bathroom, says she is a little shaky, will ask PT/OT to see no arrhythmias on monitor, will downgrade to medical floor Review of Systems Review of Systems: All systems reviewed & are unremarkable except as noted in HPI & below Constitutional: + fatigue and + weakness; no fever Respiratory: no cough and no dyspnea Cardiovascular: no chest pain and no edema Gastrointestinal: + diarrhea/loose stools; no abdominal pain, no nausea, no vomiting and no constipation Physical Exam Constitutional: WD/WN, vitals as above + overweight Eyes: PERRL, conjunctivae normal, anicteric sclerae ENMT: external ear and nose normal, oropharynx normal Neck: trachea midline, no thyromegaly Respiratory: normal respiratory effort, lungs clear to auscultation Cardiovascular: RRR, no murmur, no edema Gastrointestinal (Abdomen): normal bowel sounds, soft, nontender, no hepatosplenomegaly Musculoskeletal: no cyanosis or clubbing, extremities motor strength 5/5 Skin: no rashes, warm and dry Neurologic: patellar DTR's 2+ bilat, sensation intact and PERRL, EOMI, accom modation nl, no face palsy, no dysarthria Psychiatric: A+Ox3, euthymic affect Lymphatic: no cervical or axillary lymphadenopathy Results & Data ([facility]) Vital Signs (Past 12 Hours) Vital Signs Temp Pulse Pulse Resp BP BP Pulse Ox 11/21/19 12:50 36.9 C 72 19 142/80 H 94 11/21/19 08:03 37.4 C 74 18 141/79 H 94 11/21/19 08:00 76 11/21/19 03:11 37.1 C 70 18 148/77 H 94 Laboratory Results Laboratory Results - last 24 hr 11/20/19 11/20/19 11/21/19 16:22 20:40 06:42 WBC 7.07 RBC 3.97 L Hgb 11.4 L Hct 34.9 L MCV 87.9 MCH 28.7 MCHC 32.7 RDW Std Deviation 47.9 H RDW Coeff of Melonie 15.0 H Plt Count 170 MPV 9.6 Immature Gran % (Auto) 0.4 Neut % (Auto) 73.1 Lymph % (Auto) 14.4 Barry % (Auto) 8.2 Eos % (Auto) 3.8 Baso % (Auto) 0.1 Immature Gran # (Auto) 0.03 H Neut # (Auto) 5.16 Lymph # (Auto) 1.02 L Barry # (Auto) 0.58 Eos # (Auto) 0.27 Baso # (Auto) 0.01 PT INR Sodium Potassium Chloride Carbon Dioxide Anion Gap BUN Creatinine Est Cr Clr Drug Dosing Est GFR ( Amer) Est GFR (Non-Af Amer) BUN/Creatinine Ratio Glucose POC Glucose 201 H 211 H Calcium Troponin I 11/21/19 11/21/19 11/21/19 06:42 06:42 07:31 WBC RBC Hgb Hct MCV MCH MCHC RDW Std Deviation RDW Coeff of Melonie Plt Count MPV Immature Gran % (Auto) Neut % (Auto) Lymph % (Auto) Barry % (Auto) Eos % (Auto) Baso % (Auto) Immature Gran # (Auto) Neut # (Auto) Lymph # (Auto) Barry # (Auto) Eos # (Auto) Baso # (Auto) PT 19.8 H INR 2.0 H Sodium 136 Potassium 3.2 L Chloride 105 Carbon Dioxide 23 Anion Gap 8.0 BUN 65 H Creatinine 2.29 H Est Cr Clr Drug Dosing 22.5 Est GFR ( Amer) 23.3 Est GFR (Non-Af Amer) 20.1 BUN/Creatinine Ratio 28.3 H Glucose 158 H POC Glucose 152 H Calcium 8.0 L Troponin I < 0.015 11/21/19 11:55 WBC RBC Hgb Hct MCV MCH MCHC RDW Std Deviation RDW Coeff of Melonie Plt Count MPV Immature Gran % (Auto) Neut % (Auto) Lymph % (Auto) Barry % (Auto) Eos % (Auto) Baso % (Auto) Immature Gran # (Auto) Neut # (Auto) Lymph # (Auto) Barry # (Auto) Eos # (Auto) Baso # (Auto) PT INR Sodium Potassium Chloride Carbon Dioxide Anion Gap BUN Creatinine Est Cr Clr Drug Dosing Est GFR ( Amer) Est GFR (Non-Af Amer) BUN/Creatinine Ratio Glucose POC Glucose 218 H Calcium Troponin I Medications Administered Current Inpatient Medications Acetaminophen (Tylenol) 650 mg PO Q4H PRN PRN Reason: Pain or Fever Stop: 12/19/19 22:30 Last Admin: 11/21/19 07:29 Dose: 650 mg Documented by: Allopurinol (Zyloprim) 100 mg PO QAM [facility] Stop: 12/20/19 08:59 Last Admin: 11/21/19 07:30 Dose: 100 mg Documented by: Bumetanide (Bumex) 2 mg PO BID17 [facility] Stop: 12/19/19 22:30 Last Admin: 11/21/19 07:30 Dose: 2 mg Documented by: Calcitriol (Rocaltrol) 0.25 mcg PO DAILY [facility] Stop: 12/20/19 08:59 Last Admin: 11/21/19 07:31 Dose: 0.25 mcg Documented by: Cholestyramine Resin (Questran) 4 gm PO BID@1000,2200 [facility] Stop: 12/21/19 09:59 Last Admin: 11/21/19 11:17 Dose: 4 gm Documented by: Clonazepam (Klonopin) 0.5 mg PO HS [facility] Stop: 12/19/19 22:30 Last Admin: 11/20/19 20:52 Dose: 0.5 mg Documented by: Dextrose (Dextrose 50%) 25 - 50 ml IV UD PRN; Protocol PRN Reason: Hypoglycemia Protocol Stop: 12/19/19 22:30 Duloxetine HCl (Cymbalta) [facility] Stop: 12/20/19 08:59 Last Admin: 11/21/19 07:31 Dose: 30 mg Documented by: Glucagon (Glucagen) 1 mg SQ UD PRN; Protocol PRN Reason: Hypoglycemia Protocol Stop: 12/19/19 22:30 Glucose (Dex4 Glucose) 4 - 8 tabs PO UD PRN; Protocol PRN Reason: Hypoglycemia Protocol Stop: 12/19/19 22:30 Glucose (Glucose 40%) 15 - 30 gm PO UD PRN; Protocol PRN Reason: Hypoglycemia Protocol Stop: 12/19/19 22:30 Guaifenesin/Codeine Phosphate (Robitussin-Ac Sugar Free) 10 ml PO Q6H PRN PRN Reason: Cough Stop: 12/20/19 11:55 Last Admin: 11/21/19 07:35 Dose: 10 ml Documented by: Insulin Aspart (Novolog Flexpen) 0 units [facility] Stop: 12/19/19 22:30 Last Admin: 11/21/19 12:01 Dose: 8 units Documented by: Insulin Glargine (Lantus Solostar Pen) 30 units SC BID [facility] Stop: 12/19/19 22:30 Last Admin: 11/21/19 11:18 Dose: 30 units Documented by: Isosorbide Mononitrate (Imdur Extended Rel) 90 mg PO DAILY [facility] Stop: 12/20/19 08:59 Last Admin: 11/21/19 07:30 Dose: 90 mg Documented by: Levothyroxine Sodium (Synthroid) 75 mcg PO DAILYBB [facility] Stop: 12/20/19 06:29 Last Admin: 11/21/19 06:26 Dose: 75 mcg Documented by: Loperamide HCl (Imodium) 2 mg PO Q6 PRN PRN Reason: Diarrhea Stop: 12/20/19 15:07 Last Admin: 11/21/19 13:05 Dose: 2 mg Documented by: Metoprolol Tartrate (Lopressor) 25 mg PO DAILY [facility] Stop: 12/20/19 08:59 Last Admin: 11/21/19 07:30 Dose: 25 mg Documented by: Miscellaneous (Order Awaiting Action) 1 ea N/A QS [facility] Stop: 12/20/19 00:00 Last Admin: 11/21/19 10:17 Dose: Not Given Documented by: Miscellaneous (Carbohydrates For Hypoglycemia) 15 - 30 gm PO UD PRN PRN Reason: Hypoglycemia Protocol Stop: 12/19/19 22:30 Morphine Sulfate (Morphine Sulfate) 1 mg IV Q4H PRN PRN Reason: Severe Pain Stop: 12/05/19 00:42 Last Admin: 11/21/19 13:05 Dose: 1 mg Documented by: Nitroglycerin (Nitrostat) 0.4 mg SL UD PRN PRN Reason: Chest Pain Stop: 12/19/19 22:30 Ondansetron HCl (Zofran) 4 mg IV Q6H PRN PRN Reason: Nausea Stop: 12/19/19 22:30 Last Admin: 11/20/19 23:32 Dose: 4 mg Documented by: Pantoprazole Sodium (Protonix) 40 mg PO DAILY [facility] Stop: 12/20/19 08:59 Last Admin: 11/21/19 07:29 Dose: 40 mg Documented by: Spironolactone (Aldactone) 50 mg PO BID17 [facility] Stop: 12/19/19 22:30 Last Admin: 11/21/19 07:31 Dose: 50 mg Documented by: Terconazole (Terazol 7) 1 appln PV Q2D PRN PRN Reason: Rash Stop: 11/26/19 22:30 Warfarin Sodium (Coumadin) 5 mg PO MoTh@1600 [facility] Stop: 12/22/19 15:59 Warfarin Sodium (Coumadin) 2.5 mg PO SuTuWeFrSa@1600 [facility] Stop: 12/20/19 15:59 Last Admin: 11/20/19 16:44 Dose: 2.5 mg Documented by: PG Care Time/CCT Total # of Minutes Spent Total Time Spent with Patient: Total time spent is greater than 50% in coordination of care (as documented) at patient's floor/unit and/or counseling patient: Coding Level of Care Code 81258 Subseq Hosp Care Lvl 3 Diagnoses Nausea vomiting and diarrhea R11.2; R19.7 Leukocytosis D72.829 Leukocytosis type: unspecified Substernal chest pain R07.2 Abnormal ECG R94.31 HTN (hypertension) I10 Diabetes type 2, uncontrolled 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
[2019-11-21] MEDS: WARFARIN SOD 2.5 MG TAB PO SCH (16:16)
[2019-11-21] MEDS: ONDANSETRON INJ 2 MG/ML 2 ML VIAL IV PRN ×2 (16:19→23:40)
[2019-11-21] MEDS: PROCHLORPERAZINE MALEATE 5 MG TAB PO SCH (19:56)
[2019-11-21] MEDS: clonazePAM 0.5 MG TAB PO SCH (22:01)
[2019-11-22] MEDS: PROCHLORPERAZINE MALEATE 5 MG TAB PO SCH ×4 (02:16→19:28)
[2019-11-22] MEDS: MoRPHine SULFATE 2 MG/ML CARP IV PRN ×2 (02:17→23:56)
[2019-11-22] MEDS: ONDANSETRON INJ 2 MG/ML 2 ML VIAL IV PRN (05:24)
[2019-11-22] MEDS: LOPERAMIDE HCL 2 MG CAP PO PRN ×2 (05:28→13:28)
[2019-11-22] MEDS: LEVOTHYROXINE SODIUM 75 MCG TABLET PO SCH (05:29)
[2019-11-22] MEDS: INSULIN ASPART 100 UNITS/ML 3 ML PEN SC SCH ×4 (08:43→21:25)
[2019-11-22] MEDS: SPIRONOLACTONE 25 MG TAB PO SCH ×2 (08:45→16:45)
[2019-11-22] MEDS: DULOXETINE HCL 30 MG CAP PO SCH (08:45)
[2019-11-22] MEDS: ISOSORBIDE MONO EXTENDED REL 30 MG TABCR PO SCH (08:45)
[2019-11-22] MEDS: INSULIN GLARGINE SOLOSTAR 100 UNITS/ML 3 ML PEN SC SCH ×2 (08:46→21:26)
[2019-11-22] MEDS: METOPROLOL TARTRATE 25 MG TAB PO SCH (08:46)
[2019-11-22] MEDS: PANTOprazole 40 MG TAB PO SCH (08:46)
[2019-11-22] MEDS: CALCITRIOL 0.25 MCG CAPSULE PO SCH (08:47)
[2019-11-22] MEDS: allopurinoL 100 MG TAB PO SCH (08:47)
[2019-11-22] MEDS: CHOLESTYRAMINE LIGHT 4 GM PKT PO SCH ×2 (10:38→21:29)
[2019-11-22 12:29] LABS: BUN Creatinine Ratio 23.7 (10-20); Calcium 8.4 mg/dl (8.5-10.1); Est GFR (African American) 25.1; Est GFR (Non-African American) 21.7; Potassium 3.4 mmol/L (3.5-5.1)
[2019-11-22] MEDS: ACETAMINOPHEN 325 MG TAB PO PRN ×2 (15:29→19:30)
[2019-11-22] MEDS: WARFARIN SOD 5 MG TAB PO SCH (16:44)
[2019-11-22] MEDS: LACTATED RINGER'S 1,000 ML IV SCH ×2 (16:46→23:55)
--- NOTE | 2019-11-22 18:28 | Hospitalist Progress Note ---
Date of Service November 22, 2019 Assessment & Plan (1) Acute renal failure: Patient admitted with nausea, vomitig, diarrhea. Patient has had a BUN in the past at 30 but it has increased to 72 on admission. Creatinine has also been at 1.85 in the past but increased to 2.46 during this hospital stay. Patient will continue to require IVF to conteract her volume loss via vomiting and diarrhea. will continue to monitor her creatinine. Patient will receive an additonal 2 liters by IV. (2) Nausea vomiting and diarrhea: - Likely secondary to GI virus that is going around her family currently Clostridium difficile negative appears euvolemic after fluids yesterday, eating and drinking much more today still with diarrhea, treat with Imodium and add Questran today zofran for nausea - Hypokalemia: will continue to monitor. and replace - Abnormal ECG Lateral T wave inversions and evidence of possible septal infarct since last ECG Evidence of LVH Initial troponin negative, repeat negative this morning echo is normal discussed with Dr. Ruiz, no further work up planned - Leukocytosis Likely secondary to demargination from frequent vomiting or possible viral illness WBC normal past two days C diff testing negative - A fib Continuing with home warfarin regimen and metoprolol for rate control INR is 2.0 transfer off tele - Gastroparesis Holding home metoclopramide in setting of diarrheal illness - DMII Patient placed on subQ insulin regimen, with sliding scale will adjust as needed monitor for hypoglycemia, no episodes today - Chronic diastolic HF examines euvolemic, will hold Bumex this afternoon as she is having diarrhea can resume diuretics on discharge F/E/N: advance diet as tolerated DVT PPx: Warfarin Dispo: medical floor, consult PT/OT for evaluation to make sure she is safe to go home (3) Leukocytosis: (4) Substernal chest pain: (5) Abnormal ECG: (6) HTN (hypertension): (7) Diabetes type 2, uncontrolled: (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 Review of Systems Review of Systems: All systems reviewed & are unremarkable except as noted in HPI & below Physical Exam Physical Exam: onstitutional: WD/WN, vitals as above + overweight Eyes: PERRL, conjunctivae normal, anicteric sclerae ENMT: external ear and nose normal, oropharynx normal Neck: trachea midline, no thyromegaly Respiratory: normal respiratory effort, lungs clear to auscultation Cardiovascular: RRR, no murmur, no edema Gastrointestinal (Abdomen): normal bowel sounds, soft, nontender, no hepatosplenomegaly Musculoskeletal: no cyanosis or clubbing, extremities motor strength 5/5 Skin: no rashes, warm and dry Neurologic: patellar DTR's 2+ bilat, sensation intact and PERRL, EOMI, accommodation nl, no face palsy, no dysarthria Psychiatric: A+Ox3, euthymic affect Lymphatic: no cervical or axillary lymphadenopathy Results & Data ([facility]) Vital Signs (Past 12 Hours) Vital Signs Temp Pulse Pulse Resp BP BP Pulse Ox 11/22/19 15:03 37.1 C 60 16 136/70 94 11/22/19 10:23 96 11/22/19 08:40 66 173/77 H 11/22/19 07:14 36.5 C 62 16 154/68 H 96 PG Care Time/CCT Total # of Minutes Spent Total Time Spent with Patient: Total time spent is greater than 50% in coordination of care (as documented) at patient's floor/unit and/or counseling patient: Coding Level of Care Code 70239 Subseq Hosp Care Lvl 3 Diagnoses Acute renal failure N17.9 Nausea vomiting and diarrhea R11.2; R19.7 Leukocytosis D72.829 Leukocytosis type: unspecified Substernal chest pain R07.2 Abnormal ECG R94.31 HTN (hypertension) I10 Diabetes type 2, uncontrolled 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
[2019-11-22] MEDS ORDERED: PHARMACY GLYCEMIC MGMT CONSULT PRN (18:41)
[2019-11-22] MEDS: clonazePAM 0.5 MG TAB PO SCH (21:35)
[2019-11-22 22:35] LABS: Appearance Urine Cloudy (Clear); Bacteria Urine Automated 4+ (Negative); Bilirubin Urine Negative (Negative); Blood Urine 1+ (Negative); Color Urine Yellow; Epithelial Cell Urine Auto >30 /lpf (0-5); Glucose Urine UA Trace (Negative); Ketones Urine Negative (Negative); Leukocyte Esterase Urine Trace (Negative); Nitrite Urine Negative (Negative); Protein Urine Trace (Negative); Specific Gravity Urine 1.015 (1.000-1.030); Urobilinogen Urine Negative (Negative); pH Urine 5.5 (4.5-7.5)
[2019-11-23] MEDS: PROCHLORPERAZINE MALEATE 5 MG TAB PO SCH ×4 (01:46→18:50)
[2019-11-23] MEDS: ACETAMINOPHEN 325 MG TAB PO PRN ×2 (03:22→10:15)
[2019-11-23] MEDS: LEVOTHYROXINE SODIUM 75 MCG TABLET PO SCH (05:03)
[2019-11-23] MEDS: SPIRONOLACTONE 25 MG TAB PO SCH ×2 (08:36→16:00)
[2019-11-23] MEDS: DULOXETINE HCL 30 MG CAP PO SCH (08:36)
[2019-11-23] MEDS: METOPROLOL TARTRATE 25 MG TAB PO SCH (08:37)
[2019-11-23] MEDS: PANTOprazole 40 MG TAB PO SCH (08:37)
[2019-11-23] MEDS: ISOSORBIDE MONO EXTENDED REL 30 MG TABCR PO SCH (08:37)
[2019-11-23] MEDS: CALCITRIOL 0.25 MCG CAPSULE PO SCH (08:38)
[2019-11-23] MEDS: allopurinoL 100 MG TAB PO SCH (08:38)
[2019-11-23] MEDS: INSULIN GLARGINE SOLOSTAR 100 UNITS/ML 3 ML PEN SC SCH ×2 (08:43→21:39)
[2019-11-23] MEDS: INSULIN ASPART 100 UNITS/ML 3 ML PEN SC SCH ×5 (08:43→22:35)
--- NOTE | 2019-11-23 10:00 | Pharmacy Report ---
Glycemic Control Consultation - Date of Service November 23, 2019 - Scope Scope: Glycemic Pharmacist consulted by Dr Ibanez on 11/22/2019 for glycemic control and to write orders per [facility] inpatient glycemic control protocol - Objective Weight: 98.8 kg Accuchecks BSG (last 24hrs): 11/22/19 11/22/19 11/22/19 11:47 11:57 18:27 Glucose 218 H POC Glucose 225 H 224 H 11/22/19 11/23/19 20:41 08:33 Glucose POC Glucose 176 H 126 H Laboratory Data (last 24hrs): 11/22/19 11:57 Potassium 3.4 L Carbon Dioxide 21 Anion Gap 6.0 Creatinine 2.15 H Est Cr Clr Drug Dosing 24.0 HbA1c: Hemoglobin A1c 8.8 % (4.5-5.6) H 11/20/19 08:01 - Recent Pertinent Medications Outpatient Anti-diabetic Regimen: * Basaglar 64 units SQ BID * A1c = 8.8 % 11/20/2019 The patient is currently receiving: * Basal insulin: Lantus 35 units every 12 hours * Correctional Insulin: Novolog Correction per scale ACHS Goal Range: Low 110 mg/dL - High 140 mg/dL Correction Factor: 20 mg/dL/unit * Prandial insulin: Per carb ratio of 1 unit per 7 grams CHO consumed Risk Factors for Insulin Resistance: * Infection: N/V/D * Diet: T2DM - Assessment & Plan Assessment & Plan: ASSESSMENT: * Ms Baer is a 74 y/o F with a PMH of T2DM who presents with a several day history of N/V/D via GI illness. She has been here several days and required 80 units of insulin on 11/21/2019 (60 units of basal and 20 units of bolus) and 86 units of insulin on 11/22/2019 (65 units of basal and 21 units of bolus). * Patient's regimen is very basal heavy at home and here. Last night, service increased basal insulin to 35 units SQ BID. Received that dose this morning. Will reduce dose to scale. Concern that fasting BSGs are trending downwards significantly. 152-145-126 (this morning). Hold if BSG under 100 mg/dL. * Agree with service's tightening of CR last night. BSGs trend upwards throughout the day indicating a lack of carbohydrate coverage. PLAN FOR INPATIENT GLYCEMIC CONTROL: * Decreasing Lantus to 0-25 units SQ BID * Lantus 0 units if BSG less than 100 mg/dL * Lantus 15 units if BSG 100-140 mg/dL * Lantus 20 units if BSG 141-180 mg/dL * Lantus 25 units if BSG greater than 180 mg/dL * Continuing correction factor of 20 mg/dl/unit * Continuing carb ratio of 1 unit per 7 grams CHO consumed * Continuing goal range of Low 110 mg/dL - High 140 mg/dL * Please note that the plan above was derived based on current level of insulin resistance and hospital stress. These recommendations are appropriate for inpatient admission only. Plan of care upon discharge will need to be reassessed to avoid potential outpatient hypo/hyperglycemia. Thank you.
[2019-11-23] MEDS: CHOLESTYRAMINE LIGHT 4 GM PKT PO SCH ×2 (10:14→22:34)
[2019-11-23] MEDS: LOPERAMIDE HCL 2 MG CAP PO PRN ×3 (13:36→22:40)
[2019-11-23] MEDS: WARFARIN SOD 2.5 MG TAB PO SCH (15:43)
[2019-11-23] MEDS: ONDANSETRON INJ 2 MG/ML 2 ML VIAL IV PRN (15:52)
[2019-11-23] MEDS: clonazePAM 0.5 MG TAB PO SCH (21:46)
--- NOTE | 2019-11-23 21:54 | Hospitalist Progress Note ---
Date of Service November 23, 2019 Assessment & Plan (1) Acute renal failure: Patient admitted with nausea, vomitig, diarrhea. Patient has had a BUN in the past at 30 but it has increased to 72 on admission. Creatinine has also been at 1.85 in the past but increased to 2.46 during this hospital stay. It has improved to 2.1 will recheck creatinine in AM. (2) Nausea vomiting and diarrhea: - Likely secondary to GI virus that is going around her family currently Clostridium difficile negative appears euvolemic after fluids yesterday, eating and drinking much more today still with diarrhea, treat with Imodium and Questran. will increase frequency of zofran. zofran for nausea - Hypokalemia: will continue to monitor. and replace - Abnormal ECG Lateral T wave inversions and evidence of possible septal infarct since last ECG Evidence of LVH Initial troponin negative, repeat negative this morning echo is normal discussed with Dr. Ruiz, no further work up planned - Leukocytosis Likely secondary to demargination from frequent vomiting or possible viral illness WBC normal past two days C diff testing negative - A fib Continuing with home warfarin regimen and metoprolol for rate control INR is 2.0 transfer off tele - Gastroparesis Holding home metoclopramide in setting of diarrheal illness - DMII Patient placed on subQ insulin regimen, with sliding scale will adjust as needed monitor for hypoglycemia, no episodes today - Chronic diastolic HF examines euvolemic, will hold Bumex this afternoon as she is having diarrhea can resume diuretics on discharge F/E/N: advance diet as tolerated DVT PPx: Warfarin (3) Leukocytosis: (4) Substernal chest pain: (5) Abnormal ECG: (6) HTN (hypertension): (7) Diabetes type 2, uncontrolled: (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 She states she was barely able to reach the bathroom in time and almost had an accident today. She has had accidents during this hospital stay and reports her bathroom is farther from her bedroom at home. She reports she lives by herself and is concerned about having accidents at home and not being able to clean up after herself. Review of Systems Review of Systems: All systems reviewed & are unremarkable except as noted in HPI & below Physical Exam Physical Exam: Constitutional: WD/WN, vitals as above + overweight Eyes: PERRL, conjunctivae normal, anicteric sclerae ENMT: external ear and nose normal, oropharynx normal Neck: trachea midline, no thyromegaly Respiratory: normal respiratory effort, lungs clear to auscultation Cardiovascular: RRR, no murmur, no edema Gastrointestinal (Abdomen): normal bowel sounds, soft, nontender, no hepatosplenomegaly Musculoskeletal: no cyanosis or clubbing, extremities motor strength 5/5 Skin: no rashes, warm and dry Neurologic: patellar DTR's 2+ bilat, sensation intact and PERRL, EOMI, accommodation nl, no face palsy, no dysarthria Psychiatric: A+Ox3, euthymic affect Lymphatic: no cervical or axillary lymphadenopathy Results & Data ([facility]) Vital Signs (Past 12 Hours) Vital Signs Temp Pulse Resp BP Pulse Ox 11/23/19 14:55 37.1 C 57 L 16 130/65 95 PG Care Time/CCT Total # of Minutes Spent Total Time Spent with Patient: Total time spent is greater than 50% in coordination of care (as documented) at patient's floor/unit and/or counseling patient: Coding Level of Care Code 98129 Subseq Hosp Care Lvl 2 Diagnoses Acute renal failure N17.9 Nausea vomiting and diarrhea R11.2; R19.7 Leukocytosis D72.829 Leukocytosis type: unspecified Substernal chest pain R07.2 Abnormal ECG R94.31 HTN (hypertension) I10 Diabetes type 2, uncontrolled E11.65 [facility] (current) use of anticoagulants Z79.01 Asthma J45.909 Dyslipidemia E78.5 Diabetic foot ulcer E11.621; L97.509 Essential hypertension I10 GERD without esophagitis K21.9 Obstructive sleep apnea of adult G47.33 Paroxysmal atrial fibrillation I48.0 Time Spent (min) 30 (1) Leukocytosis Leukocytosis type: unspecified Qualified Code(s): D72.829 - Elevated white blood cell count, unspecified
[2019-11-24] MEDS: ACETAMINOPHEN 325 MG TAB PO PRN (01:48)
[2019-11-24] MEDS: PROCHLORPERAZINE MALEATE 5 MG TAB PO SCH ×4 (01:49→18:48)
[2019-11-24] MEDS: LEVOTHYROXINE SODIUM 75 MCG TABLET PO SCH (05:23)
[2019-11-24 07:04] LABS: Prothrombin Time 36.4 Seconds (9.0-12.0)
[2019-11-24 07:26] LABS: INR 3.9 (0.9-1.1)
[2019-11-24] MEDS: SPIRONOLACTONE 25 MG TAB PO SCH ×2 (08:59→16:29)
[2019-11-24] MEDS: ISOSORBIDE MONO EXTENDED REL 30 MG TABCR PO SCH (08:59)
[2019-11-24] MEDS: PANTOprazole 40 MG TAB PO SCH (08:59)
[2019-11-24] MEDS: allopurinoL 100 MG TAB PO SCH (09:00)
[2019-11-24] MEDS: DULOXETINE HCL 30 MG CAP PO SCH (09:00)
[2019-11-24] MEDS: METOPROLOL TARTRATE 25 MG TAB PO SCH (09:00)
[2019-11-24] MEDS: CALCITRIOL 0.25 MCG CAPSULE PO SCH (09:00)
[2019-11-24] MEDS: CHOLESTYRAMINE LIGHT 4 GM PKT PO SCH ×2 (09:02→22:33)
[2019-11-24] MEDS: INSULIN GLARGINE SOLOSTAR 100 UNITS/ML 3 ML PEN SC SCH ×2 (09:04→21:33)
[2019-11-24] MEDS: INSULIN ASPART 100 UNITS/ML 3 ML PEN SC SCH ×5 (09:07→22:36)
--- NOTE | 2019-11-24 15:16 | Pharmacy Report ---
Pharmacy Glycemic Short Note 2 - Date of Service November 24, 2019 - Glycemic Short BSG Results (Last 24 hours): 11/23/19 11/23/19 11/24/19 17:16 20:43 08:09 POC Glucose 164 H 197 H 115 H 11/24/19 12:10 POC Glucose 187 H ASSESSMENT: 11/24: * Patient received total of 87 units of insulin yesterday, of which 60 were basal insulin * Fasting bSG 115 mg/dL - will continue with scale for Lantus / Plan to scale back slightly as tightening CR today PLAN FOR INPATIENT GLYCEMIC CONTROL: * Hold outpatient oral diabetes medications * Basal insulin * Lantus 20 this Am, the Lantus 25-30-35 units based upon BSG for HS * Bolus insulin * NovoLog per scale ACHS or Q6hrs while NPO * Goal Range: Low 110 mg/dL - High 140 mg/dL * Correction Factor: 20 mg/dL/unit * Nutritional / Prandial insulin per carb ratio of 1 unit per 6 grams CHO consumed
[2019-11-24] MEDS: LOPERAMIDE HCL 2 MG CAP PO PRN ×2 (16:29→23:26)
[2019-11-24] MEDS: clonazePAM 0.5 MG TAB PO SCH (21:32)
--- NOTE | 2019-11-24 22:59 | Hospitalist Progress Note ---
Date of Service November 24, 2019 Assessment & Plan (1) Acute renal failure: Patient admitted with nausea, vomitig, diarrhea. Patient has had a BUN in the past at 30 but it has increased to 72 on admission. Creatinine has also been at 1.85 in the past but increased to 2.46 during this hospital stay. It has improved to 2.15 will recheck on 2.13 (2) Nausea vomiting and diarrhea: - Likely secondary to GI virus that is going around her family currently Clostridium difficile negative appears euvolemic after fluids yesterday, eating and drinking much more today still with diarrhea, treat with Imodium and Questran. will increase frequency of zofran. zofran for nausea - Hypokalemia: will continue to monitor. and replace - Abnormal ECG Lateral T wave inversions and evidence of possible septal infarct since last ECG Evidence of LVH Initial troponin negative, repeat negative this morning echo is normal discussed with Dr. Ruiz, no further work up planned - Leukocytosis Likely secondary to demargination from frequent vomiting or possible viral illness WBC normal past two days C diff testing negative - A fib Continuing with home warfarin regimen and metoprolol for rate control INR is 2.0 transfer off tele - Gastroparesis Holding home metoclopramide in setting of diarrheal illness - DMII Patient placed on subQ insulin regimen, with sliding scale will adjust as needed monitor for hypoglycemia, no episodes today - Chronic diastolic HF examines euvolemic, will hold Bumex this afternoon as she is having diarrhea can resume diuretics on discharge CKD stage 4: as noted in problem #1 F/E/N: advance diet as tolerated DVT PPx: Warfarin (3) Leukocytosis: (4) Substernal chest pain: (5) Abnormal ECG: (6) HTN (hypertension): (7) Diabetes type 2, uncontrolled: (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 Patient feels fatigued and does not want to be discharged today. Review of Systems Review of Systems: All systems reviewed & are unremarkable except as noted in HPI & below Physical Exam Physical Exam: Constitutional: WD/WN, vitals as above + overweight Eyes: PERRL, conjunctivae normal, anicteric sclerae ENMT: external ear and nose normal, oropharynx normal Neck: trachea midline, no thyromegaly Respiratory: normal respiratory effort, lungs clear to auscultation Cardiovascular: RRR, no murmur, no edema Gastrointestinal (Abdomen): normal bowel sounds, soft, nontender, no h epatosplenomegaly Musculoskeletal: no cyanosis or clubbing, extremities motor strength 5/5 Skin: no rashes, warm and dry Neurologic: patellar DTR's 2+ bilat, sensation intact and PERRL, EOMI, acc ommodation nl, no face palsy, no dysarthria Psychiatric: A+Ox3, euthymic affect Lymphatic: no cervical or axillary lymphadenopathy Results & Data ([facility]) Vital Signs (Past 12 Hours) Vital Signs Temp Pulse Resp BP Pulse Ox 11/24/19 15:05 37.0 C 54 L 19 151/68 H 95 PG Care Time/CCT Total # of Minutes Spent Total Time Spent with Patient: Total time spent is greater than 50% in coordination of care (as documented) at patient's floor/unit and/or counseling patient: Coding Level of Care Code 95155 Subseq Hosp Care Lvl 2 Diagnoses Acute renal failure N17.9 Nausea vomiting and diarrhea R11.2; R19.7 Leukocytosis D72.829 Leukocytosis type: unspecified Substernal chest pain R07.2 Abnormal ECG R94.31 HTN (hypertension) I10 Diabetes type 2, uncontrolled E11.65 alf (current) use of anticoagulants Z79.01 Asthma J45.909 Dyslipidemia E78.5 Diabetic foot ulcer E11.621; L97.509 Essential hypertension I10 GERD without esophagitis K21.9 Obstructive sleep apnea of adult G47.33 Paroxysmal atrial fibrillation I48.0 Time Spent (min) 25 (1) Leukocytosis Leukocytosis type: unspecified Qualified Code(s): D72.829 - Elevated white blood cell count, unspecified
[2019-11-25] MEDS: PROCHLORPERAZINE MALEATE 5 MG TAB PO SCH ×3 (01:17→13:24)
[2019-11-25] MEDS: LEVOTHYROXINE SODIUM 75 MCG TABLET PO SCH (05:48)
[2019-11-25] MEDS: ACETAMINOPHEN 325 MG TAB PO PRN (06:05)
[2019-11-25 07:31] LABS: Prothrombin Time 28.2 Seconds (9.0-12.0)
[2019-11-25] MEDS: METOPROLOL TARTRATE 25 MG TAB PO SCH (08:11)
[2019-11-25] MEDS: DULOXETINE HCL 30 MG CAP PO SCH (08:11)
[2019-11-25] MEDS: ISOSORBIDE MONO EXTENDED REL 30 MG TABCR PO SCH (08:11)
[2019-11-25] MEDS: CALCITRIOL 0.25 MCG CAPSULE PO SCH (08:12)
[2019-11-25] MEDS: PANTOprazole 40 MG TAB PO SCH (08:12)
[2019-11-25] MEDS: allopurinoL 100 MG TAB PO SCH (08:12)
[2019-11-25] MEDS: SPIRONOLACTONE 25 MG TAB PO SCH ×2 (08:12→18:11)
[2019-11-25] MEDS: INSULIN ASPART 100 UNITS/ML 3 ML PEN SC SCH ×3 (09:22→18:14)
[2019-11-25] MEDS: INSULIN GLARGINE SOLOSTAR 100 UNITS/ML 3 ML PEN SC SCH (09:32)
[2019-11-25] MEDS: CHOLESTYRAMINE LIGHT 4 GM PKT PO SCH (10:03)
[2019-11-25] MEDS: LOPERAMIDE HCL 2 MG CAP PO PRN (13:40)
--- NOTE | 2019-11-25 14:07 | Pharmacy Report ---
Pharmacy Glycemic Short Note 2 - Date of Service November 25, 2019 - Glycemic Short BSG Results (Last 24 hours): 11/24/19 11/24/19 11/25/19 17:10 20:44 07:57 POC Glucose 195 H 179 H 129 H 11/25/19 12:02 POC Glucose 232 H ASSESSMENT: 11/25: * Patient received total of 81 units of insulin yesterday, of which 50 were basal insulin * Fasting BSG w/in range at 129 mg/dL - will continue with Lantus scale * Lunch BSGs trending up therefore will tighten CR 11/24: * Patient received total of 87 units of insulin yesterday, of which 60 were basal insulin * Fasting bSG 115 mg/dL - will continue with scale for Lantus / Plan to scale back slightly as tightening CR today PLAN FOR INPATIENT GLYCEMIC CONTROL: * Hold outpatient oral diabetes medications * Basal insulin * Lantus 25 this Am, the Lantus 20-25-30 units based upon BSG for HS * Bolus insulin * NovoLog per scale ACHS or Q6hrs while NPO * Goal Range: Low 110 mg/dL - High 140 mg/dL * Correction Factor: 20 mg/dL/unit * Nutritional / Prandial insulin per carb ratio of 1 unit per 5 grams CHO consumed
[2019-11-25] MEDS: WARFARIN SOD 5 MG TAB PO SCH (15:53)
[2019-11-25 16:12] LABS: BUN Creatinine Ratio 17.8 (10-20); Calcium 8.1 mg/dl (8.5-10.1); Creatinine Clr Calc Pharmacy 25.9 ml/min; Est GFR (African American) 27.6; Est GFR (Non-African American) 23.8; Potassium 4.6 mmol/L (3.5-5.1)
--- NOTE | 2019-12-01 23:43 | Discharge Summary ---
Date of Service November 25, 2019 Admission HPI Per Admitting Provider Beverley Baer is a 74 year old woman with a past medical history significant for COPD, CKD IV, HTN, Hypothyroidism, DMII, HLD, Atrial Fibrillation on warfarin and [place] in 2018. She is here today for about 12 hours of GI illness. She tells me around 11 am she had an episode of vomiting and then had several episodes of vomiting. She was not able to quantify how many episodes of vomiting she had despite my frequent efforts to ask her to quantify but she says many. She describes the vomit as liquid and greenish, no blood. She has been around her sister and her frequently and both have them were sick with a very similar illness that required them both to be hospitalized with frequent vomiting. Sister is present at bedside with her now. She had one episode of chest pain on ambulance on way to emergency department but that quickly resolved. In emergency department she remained afebrile though with a temperature just under 38 degrees. She was otherwise hemodynamically stable throughout. Her labwork was significant for an elevated white count of 19.41 and an elevated BUN of 66 with a creatinine of 2.29 which appears to be very near her baseline. Her troponin and LFT's were normal her INR was therapeutic. She also received a CT of her abdomen and pelvis which revealed liquid stool throughout colon, hepatomegaly and steatosis and mild cardiomegaly. She received zofran, some morphine for her abdominal pain, and was started on IV NSS at 125 an hour in ED. Principal Diagnosis acute renal failure, diarrhea Discharge Exam Constitutional: WD/WN, vitals as above + overweight Eyes: PERRL, conjunctivae normal, anicteric sclerae ENMT: external ear and nose normal, oropharynx normal Neck: trachea midline, no thyromegaly Respiratory: normal respiratory effort, lungs clear to auscultation Cardiovascular: RRR, no murmur, no edema Gastrointestinal (Abdomen): normal bowel sounds, soft, nontender, no hepatosplenomegaly Musculoskeletal: no cyanosis or clubbing, extremities motor strength 5/5 Skin: no rashes, warm and dry Neurologic: patellar DTR's 2+ bilat, sensation intact and PERRL, EOMI, accommodation nl, no face palsy, no dysarthria Psychiatric: A+Ox3, euthymic affect Lymphatic: no cervical or axillary lymphadenopathy Discharge Data Allergies Allergy/AdvReac Type Severity Reaction Status Date / Time clarithromycin Allergy Intermediate RASH AND Verified 11/19/19 16:46 ITCHING Consultations 11/19/19 19:51 ED Decision to Admit Stat 11/20/19 01:09 Consult Cardiology Routine Ordered Studies 11/19/19 16:13 CT abd pelvis wo con Stat Hospital Course (1) Acute renal failure: Patient admitted with nausea, vomitig, diarrhea. Patient has had a BUN in the past at 30 but it has increased to 72 on admission. Creatinine has also been at 1.85 in the past but increased to 2.46 during this hospital stay. It has improved to 1.99 on discharge (2) Nausea vomiting and diarrhea: - Likely secondary to GI virus that is going around her family currently Clostridium difficile negative appears euvolemic after fluids yesterday, eating and drinking much more today diarrhea improved, will titrate Imodium and Questran. Goal one BM per day,if ZERO BM, recommend holding immodium and questran. - Hypokalemia: will continue to monitor. and replace - Abnormal ECG Lateral T wave inversions and evidence of possible septal infarct since last ECG Evidence of LVH Initial troponin negative, repeat negative this morning echo is normal discussed with Dr. Ruiz, no further work up planned - Leukocytosis Likely secondary to demargination from frequent vomiting or possible viral illness WBC normal past two days C diff testing negative - A fib Continuing with home warfarin regimen and metoprolol for rate control INR is 2.0 transfer off tele - Gastroparesis Holding home metoclopramide in setting of diarrheal illness - DMII Patient placed on subQ insulin regimen, with sliding scale will adjust as needed monitor for hypoglycemia, no episodes today - Chronic diastolic HF examines euvolemic, will hold Bumex this afternoon as she is having diarrhea can resume diuretics on discharge CKD stage 4: as noted in problem #1 F/E/N: advance diet as tolerated DVT PPx: Warfarin (3) Leukocytosis: (4) Substernal chest pain: (5) Abnormal ECG: (6) HTN (hypertension): (7) Diabetes type 2, uncontrolled: (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: (9) Asthma: (10) Dyslipidemia: (11) Diabetic foot ulcer: (12) Essential hypertension: (13) GERD without esophagitis: (14) Obstructive sleep apnea of adult: (15) Paroxysmal atrial fibrillation: Total Time Total Time Spent Total Time Spent (In Minutes): 35 Total Time Includes: Examination of the Patient, Discharge Planning and Medication Reconciliation Discharge Plan Discharge Items Patient Disposition: Home - Self-Care Reason For Visit: GI ILLNESS NAUSEA AND VOMITING Discharge Diagnosis: viral illness Activity: Resume your previous activity Non-emergency contact: Primary Care Provider Call non-emergency contact if: you have any medication questions Follow-up/Referrals: Alfred Mckeon III, CRNP [Primary Care Provider] - 12/06/19 9:20 am Diet: Carb Consistent or DM2 Addtl Attending Provider Instructions: You have been hospitalized for an acute medical problem. During your stay at [facility], we have made an effort to correct the problem that brought you to the hospital while keeping you as comfortable as possible. Medications were used to bring your condition under control and your discharge instructions will include directions for any medications you should take after leaving the hospital. Please make sure you see your Primary Care Provider as part of your follow up plan. Follow up with PCP in 1-2 weeks Taper the loperamide to once or twice a day. The last 24 hours you only required 2 tablets of loperamide (immodium). Goal is to have about 1 or 2 bowel movements in a day. If you have a 24 hour period without a Bowel movement, stop the loperamide (immodium). Pending Studies at Discharge: No Stand-Alone Forms: My [facility] Medications and DC Order Prescriptions: New Cholestyramine Light 4 gram Powder In Packet 4 g PO BID@1000,2200 PRN (Reason: diarrhea) Qty: 10 RF: 0 loperamide 2 mg Capsule 2 mg PO Q6 PRN (Reason: diarrhea) Qty: 16 RF: 0 Continued cranberry fruit concentrate [Azo Cranberry] 250 mg tablet,chewable 500 mg PO DAILY@12 RF: 0 nitroglycerin [Nitrostat] 0.4 mg Tablet, Sublingual 0.4 mg UT UD PRN (Reason: Chest Pain) Qty: 0 RF: 0 spironolactone 50 mg Tablet 50 mg PO BID Qty: 0 RF: 0 ezetimibe-simvastatin [Vytorin 10-40] 10-40 mg Tablet 1 tab PO HS Qty: 0 RF: 0 duloxetine [Cymbalta] 30 mg capsule,delayed release(DR/EC) 30 mg PO QAM Qty: 90 RF: 1 metoclopramide HCl 10 mg tablet 10 mg PO QPM Qty: 90 RF: 1 allopurinol 100 mg tablet 100 mg PO QAM Qty: 90 RF: 1 (DME) OneTouch Ultra Blue Test Strip strip See Dose Instructions .ROUTE .MEDSUPPLY Qty: 400 RF: 1 potassium chloride [Klor-Con M20] 20 mEq tablet,ER particles/crystals 20 meq PO DAILY Qty: 90 RF: 1 levothyroxine 75 mcg tablet 75 mcg PO DAILY Qty: 30 RF: 2 metoprolol tartrate 25 mg tablet 25 mg PO DAILY Qty: 90 RF: 1 calcitriol 0.25 mcg capsule 0.25 mcg PO DAILY Qty: 90 RF: 1 fenofibric acid (choline) [Trilipix] 135 mg capsule,delayed release(DR/EC) 135 mg PO QAM 90 Days Qty: 90 RF: 1 bumetanide 2 mg tablet 2 mg PO BID 90 Days Qty: 180 RF: 3 clonazepam 0.5 mg tablet 0.5 mg PO HS Qty: 90 RF: 0 azelastine 137 mcg (0.1 %) aerosol,spray 2 sprays INTNAS BID Qty: 90 RF: 1 pantoprazole [Protonix] 40 mg tablet,delayed release (DR/EC) 40 mg PO DAILY Qty: 90 RF: 1 Novolog Flexpen U-100 Insulin 100 unit/mL (3 mL) insulin pen 75 units subcut DAILY Qty: 5 RF: 3 (DME) pen needle, diabetic [BD Ultra-Fine Mini Pen Needle] 31 gauge x 3/16" needle See Dose Instructions .ROUTE .MEDSUPPLY RF: 0 terconazole 0.4 % cream 1 appl PV Q2D PRN (Reason: Rash) RF: 0 betamethasone dipropionate 0.05 % cream 1 appln topical UD PRN (Reason: Rash) RF: 0 docusate sodium [Colace] 100 mg capsule 100 mg PO QID RF: 0 fexofenadine 180 mg tablet 180 mg PO DAILY RF: 0 (DME) lancets [OneTouch Delica Lancets] 33 gauge misc See Dose Instructions .ROUTE .MEDSUPPLY Qty: 100 RF: 0 isosorbide mononitrate 30 mg tablet extended release 24 hr 90 mg PO DAILY RF: 0 warfarin 5 mg tablet 0 mg PO UD RF: 0 ergocalciferol (vitamin D2) 1,250 mcg (50,000 unit) capsule 50,000 unit PO UD RF: 0 No Action sulfamethoxazole-trimethoprim [Bactrim DS] 800-160 mg tablet 1 tab PO Q12H 7 Days Qty: 14 RF: 0 Basaglar KwikPen U-100 Insulin 100 unit/mL (3 mL) insulin pen 64 unit SC BID Qty: 45 RF: 5 Discharge Orders: Discharge Order (Routine); Ordered 11/25/19 Ordered By: Yosef Bhagat/Other Patient Handouts: Diarrhea Admission Data Admit Date/Time: 11/19/19 21:06 Attending Provider: Yosef Ibanez Admit Provider: Fredy Young Primary Care Provider: Alfred Mckeon III Other Providers: Mello Thompson ; Cal Ruiz Other Interventions: Discharge Summary Assessment (RN) Last Done: 11/25/19 18:57 DC Date/Time DO NOT enter until pt leaves facility: 11/25/19 19:48 Coding Level of Care Code D/C Day Management >30 mins Diagnoses Acute renal failure N17.9 Nausea vomiting and diarrhea R11.2; R19.7 Leukocytosis D72.829 Leukocytosis type: unspecified Substernal chest pain R07.2 Abnormal ECG R94.31 HTN (hypertension) I10 Diabetes type 2, uncontrolled E11.65 long-term (current) use of anticoagulants Z79.01 Asthma J45.909 Dyslipidemia E78.5 Diabetic foot ulcer E11.621; L97.509 Essential hypertension I10 GERD without esophagitis K21.9 Obstructive sleep apnea of adult G47.33 Paroxysmal atrial fibrillation I48.0
== END 2019-11-25 19:48 | disposition home or self-care (01) ==
LOC: ED 15:56 → 2S 21:06 → SUATTDRO 21:06 → INTOOBSV 21:06 → 2S 21:30 → 3W 11-21 12:50

== ENCOUNTER 2019-12-23 14:56 | Inpatient (IN) ==
--- NOTE | 2019-12-23 16:09 | Emergency Department Note ---
ED Provider Note NAME: KRYSTAL LESLIE AGE: 74 SEX: F ARRIVES VIA: Walk-In INFORMANT: [Patient] family ED PROVIDER(S): [Oliver Gorman MD] CHIEF COMPLAINT: LE edema, Wt gain IMPRESSION: Lower extremity edema Volume overload Renal insufficiency PLAN: Disposition: Admitted Condition: [Good] MEDICAL DECISION MAKING: Patient presented to the emergency department because of increased weight gain despite using additional outpatient diuretics. Unfortunately she continues to gain weight. Chemistry panel revealed significant renal insufficiency which is baseline for her. I did discuss the case with Dr. Mckay of nephrology. He recommended admission to the hospital for IV diuresis with Bumex 2 mg twice daily. I did consult with the hospitalist service. The patient was evaluated in the ER for further management. Triage Nursing notes reviewed and agree them. [Additional history obtained from] family [Prior medical records reviewed] patient has longstanding baseline renal insufficiency. Vital Signs: reviewed and remarkable for [no significant abnormalities] Differential diagnosis: Renal failure, volume overload, CHF, infection, dehydration, metabolic abnormality, hypo/hyperglycemia, electrolyte disturbance, anemia, hypoxia, cardiac sources, intracerebral event, toxicologic, neurologic, as well as other pathologies. ER treatment provided: IV Bumex Diagnostics interpreted by me: ECG: Rate: 59 Rhythm: Sinus bradycardia with a first-degree AV block [place]: Left axis deviation QRS: QRS widening ST segements: No ST elevation or depression Other: LVH Cardiac Monitoring: Cardiac monitoring ordered: The patient was placed on continuous cardiac monitoring and observed. It revealed a sinus bradycardia at 60 bpm without ectopy or evidence of dysrhythmia. Laboratory studies: [See below] an unremarkable CBC and chemistry panel except for chronic renal sufficiency with a poor GFR less than 25 Imaging studies: Chest x-ray shows some mild congestive change. No infiltrates Consultation(s): Consultation was made with the hospitalist service. The patient was evaluated in the ER for further management. HPI:The patient is a 74 year old female who presents to the Emergency Room with complaints of LE edema and SOB. This started 2-3 weeks and is worsening. The patient also notes the following associated symptoms, weakness,SOB, 3 lb wt gain since yesterday and 17lb over 2 weeks. The patient has tried additional bumetadine for relieving factors. Current pain is rated as 5/10, achy, in her legs. Pt denies LOC, headache, fevers, chills, diaphoresis, visual changes, neck pain, chest pain, nausea, vomiting, abdominal pain, back pain, melena, hematoc hezia, urinary symptoms, numbness, lymphadenopathy, rash, or other complaints. ROS: See above HPI for pertinent positives & negatives. A total of [10] systems reviewed and were otherwise negative. PAST MEDICAL HISTORY:CKD, CHR PAST SURGICAL HISTORY:Hysterectomy, tonsils FAMILY HISTORY:See Below SOCIAL HISTORY:No ETOH HOME MEDICATIONS:See Below ALLERGIES:See Below VITALS:See Below PHYSICAL EXAMINATION: GENERAL: Awake, alert, tired-appearing, in no distress HENT: Normocephalic, atraumatic. Oropharynx unremarkable. EYES: Normal conjunctiva. Sclera non-icteric. NECK: Inspection normal. Non-tender. Supple. No nuchal rigidity. FROM. No masses. RESPIRATORY: Clear to auscultation. No wheezes. No rales. Normal respiratory effort. CARDIAC: Normal rate. Normal rhythm. No murmurs. No rubs. Extremities warm and well perfused. Pulses equal. No JVD. GI: Soft, non-distended. No tenderness to palpation. No rebound or guarding. No masses. RECTAL: Deferred. MUSCULOSKELETAL: Atraumatic. Chest examination reveals no tenderness. The back is symmetrical on inspection without obvious abnormality. There is no CVA tenderness to palpation. No joint edema. LOWER EXTREMITIES: Calves are equal size bilaterally . Generalized muscular tenderness 3+ edema. No discoloration. NEURO: Normal sensorium. No sensory or motor deficits noted. SKIN: No rash or jaundice noted. 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 Beliefs That Will Affect Care: None marital status: Single Current Living Situation: Alone current occupational status: retired Feels Safe at Home: Yes Smoking Status: Never smoker Hx Alcohol Use: No Hx Substance Use: No Dental Care, Regularly: Yes Physical Activity Frequency: Does not Exercise Seatbelt Use: always Do you think of yourself as: straight/heterosexual Results & Data Vital Signs Vital Signs - 24 hr 12/23/19 15:15 12/23/19 16:27 12/23/19 16:30 Temperature 37.1 C Temperature Source Oral Pulse Rate 64 60 58 L Pulse Rate from SpO2 Sensor 60 58 L Respiratory Rate 20 14 17 Respiratory Effort / Characteristics Non-Labored Spontaneous Respiratory Depth Normal Respiratory Pattern Regular Blood Pressure 145/62 H 162/62 H Blood Pressure Mean 89 99 Blood Pressure Position Sitting Pulse Oximetry 93 97 96 Oxygen Delivery Method Room Air Sepsis Recent Fever Within 48 Hours No Sepsis New/Unexplained Change in Mental Status No Sepsis Action Taken by Nursing No Action Required 12/23/19 17:00 12/23/19 17:30 12/23/19 18:00 Temperature Temperature Source Pulse Rate 58 L Pulse Rate from SpO2 Sensor 58 L 59 L 59 L Respiratory Rate 17 Respiratory Effort / Characteristics Respiratory Depth Respiratory Pattern Blood Pressure Blood Pressure Mean Blood Pressure Position Pulse Oximetry 96 96 97 Oxygen Delivery Method Sepsis Recent Fever Within 48 Hours Sepsis New/Unexplained Change in Mental Status Sepsis Action Taken by Nursing 12/23/19 18:22 12/23/19 18:30 12/23/19 19:00 Temperature Temperature Source Pulse Rate Pulse Rate from SpO2 Sensor 59 L 60 Respiratory Rate Respiratory Effort / Characteristics Respiratory Depth Respiratory Pattern Blood Pressure Blood Pressure Mean Blood Pressure Position Pulse Oximetry 96 96 96 Oxygen Delivery Method Sepsis Recent Fever Within 48 Hours Sepsis New/Unexplained Change in Mental Status Sepsis Action Taken by Nursing 12/23/19 19:30 Temperature Temperature Source Pulse Rate 59 L Pulse Rate from SpO2 Sensor 60 Respiratory Rate 17 Respiratory Effort / Characteristics Respiratory Depth Respiratory Pattern Blood Pressure Blood Pressure Mean Blood Pressure Position Pulse Oximetry 96 Oxygen Delivery Method Sepsis Recent Fever Within 48 Hours Sepsis New/Unexplained Change in Mental Status Sepsis Action Taken by Nursing Laboratory Data Result diagrams: 12/23/19 16:55 12/23/19 16:55 Lab Results 12/23/19 12/23/19 12/23/19 Range/Units 16:55 16:55 16:55 WBC 7.93 (4.8-10.8) K/uL RBC 3.82 L (4.2-5.4) M/uL Hgb 10.8 L (12.0-16.0) g/dL Hct 34.7 L (37-47) % MCV 90.8 (80-100) fL MCH 28.3 (25-34) pg MCHC 31.1 L (32-36) g/dL RDW Std Deviation 50.2 H (36.4-46.3) fL RDW Coeff of Melonie 15.1 H (11.5-14.5) % Plt Count 207 (130-400) K/uL MPV 9.6 (7.4-10.4) fL Immature Gran % (Auto) 1.1 % Neut % (Auto) 69.1 % Lymph % (Auto) 15.4 % [place] % (Auto) 9.1 % Eos % (Auto) 5.0 % Baso % (Auto) 0.3 % Immature Gran # (Auto) 0.09 H (0.00-0.02) K/uL Neut # (Auto) 5.48 (1.4-6.5) K/uL Lymph # (Auto) 1.22 (1.2-3.4) K/uL [place] # (Auto) 0.72 H (0.11-0.59) K/uL Eos # (Auto) 0.40 (0-0.5) K/uL Baso # (Auto) 0.02 (0-0.2) K/uL PT 27.1 H (9.0-12.0) Seconds INR 2.7 H (0.9-1.1) APTT 37.1 H (21.0-31.0) Seconds PTT Ratio 1.3 Sodium 140 (136-145) mmol/L Potassium 3.7 (3.5-5.1) mmol/L Chloride 105 (98-107) mmol/L Carbon Dioxide 31 (21-32) mmol/L Anion Gap 4.0 (3-11) BUN 53 H (7-18) mg/dl Creatinine 2.25 H (0.6-1.2) mg/dl Est Cr Clr Drug Dosing 24.9 ml/min Est GFR ( Amer) 23.8 Est GFR (Non-Af Amer) 20.5 BUN/Creatinine Ratio 23.4 H (10-20) Glucose 81 (70-99) mg/dl Calcium 8.8 (8.5-10.1) mg/dl Phosphorus (2.5-4.9) mg/dl Magnesium (1.8-2.4) mg/dl Total Bilirubin 0.2 (0.2-1) mg/dl AST 22 (15-37) U/L ALT 22 (12-78) U/L Alkaline Phosphatase 37 L (45-117) U/L Troponin I 0.015 (0-0.045) ng/ml NT-Pro-B Natriuret Pep 914 (0-1800) pg/ml Total Protein 6.8 (6.4-8.2) gm/dl Albumin 3.0 L (3.4-5.0) gm/dl Globulin 3.8 (2.5-4.0) gm/dl Albumin/Globulin Ratio 0.8 L (0.9-2) 12/23/19 Range/Units 16:55 WBC (4.8-10.8) K/uL RBC (4.2-5.4) M/uL Hgb (12.0-16.0) g/dL Hct (37-47) % MCV (80-100) fL MCH (25-34) pg MCHC (32-36) g/dL RDW Std Deviation (36.4-46.3) fL RDW Coeff of Melonie (11.5-14.5) % Plt Count (130-400) K/uL MPV (7.4-10.4) fL Immature Gran % (Auto) % Neut % (Auto) % Lymph % (Auto) % [place] % (Auto) % Eos % (Auto) % Baso % (Auto) % Immature Gran # (Auto) (0.00-0.02) K/uL Neut # (Auto) (1.4-6.5) K/uL Lymph # (Auto) (1.2-3.4) K/uL [place] # (Auto) (0.11-0.59) K/uL Eos # (Auto) (0-0.5) K/uL Baso # (Auto) (0-0.2) K/uL PT (9.0-12.0) Seconds INR (0.9-1.1) APTT (21.0-31.0) Seconds PTT Ratio Sodium (136-145) mmol/L Potassium (3.5-5.1) mmol/L Chloride (98-107) mmol/L Carbon Dioxide (21-32) mmol/L Anion Gap (3-11) BUN (7-18) mg/dl Creatinine (0.6-1.2) mg/dl Est Cr Clr Drug Dosing ml/min Est GFR ( Amer) Est GFR (Non-Af Amer) BUN/Creatinine Ratio (10-20) Glucose (70-99) mg/dl Calcium (8.5-10.1) mg/dl Phosphorus 3.3 (2.5-4.9) mg/dl Magnesium 2.3 (1.8-2.4) mg/dl Total Bilirubin (0.2-1) mg/dl AST (15-37) U/L ALT (12-78) U/L Alkaline Phosphatase (45-117) U/L Troponin I (0-0.045) ng/ml NT-Pro-B Natriuret Pep (0-1800) pg/ml Total Protein (6.4-8.2) gm/dl Albumin (3.4-5.0) gm/dl Globulin (2.5-4.0) gm/dl Albumin/Globulin Ratio (0.9-2) Administered Medications Clonazepam (Klonopin) 0.5 mg PO HS [facility] Stop: 01/22/20 21:31 Last Admin: 12/23/19 22:43 Dose: 0.5 mg Documented by: [id number] Docusate Sodium (Colace) 100 mg PO QID [facility] Stop: 01/22/20 21:31 Last Admin: 12/23/19 22:41 Dose: 100 mg Documented by: [id number] Ezetimibe/Simvastatin (Vytorin 10/40 Mg) 1 tab PO HS [facility] Stop: 01/22/20 21:31 Last Admin: 12/23/19 22:41 Dose: 1 tab Documented by: [id number] Insulin Aspart (Novolog Flexpen) 0 units SC ACHS [facility] Stop: 01/22/20 21:31 Last Admin: 12/23/19 21:37 Dose: Not Given Documented by: [id number] Cosigned by: [id number] Insulin Glargine (Lantus) 64 units SC BID [facility] Stop: 01/22/20 21:31 Last Admin: 12/23/19 22:42 Dose: 64 units Documented by: [id number] Cosigned by: [id number] Miscellaneous (Order Awaiting Action) 1 ea N/A QS [facility] Stop: 01/22/20 21:59 Last Admin: 12/23/19 23:11 Dose: Not Given Documented by: [id number] Admin: 12/23/19 22:59 Dose: Not Given Documented by: [id number] Miscellaneous (Order Awaiting Action) 1 ea N/A QS [facility] Stop: 01/22/20 21:59 Last Admin: 12/23/19 23:11 Dose: Not Given Documented by: [id number] Admin: 12/23/19 22:59 Dose: Not Given Documented by: [id number] Discontinued Medications Bumetanide 2 mg/ Syringe 8 mls @ 4 mls/min IV ONE ONE Stop: 12/23/19 18:41 Last Admin: 12/23/19 19:09 Dose: 4 mls/min Documented by: [id number] Discharge Plan Visit Data *Final* Discharge Date/Time: 12/23/19 20:56 Chief Complaint: Swelling/Edema to Extremity Stated Complaint: FLUID ISSUES IN LEGS ED Provider: Oliver Gorman Discharge Problem: Volume overload, Edema, CKD (chronic kidney disease), stage IV Patient Disposition: Admitted As Inpatient Discharge Instructions Interventions: ED Discharge Assessment Last Done: 12/23/19 20:56
--- NOTE | 2019-12-23 16:34 | XRay Report ---
SINGLE VIEW CHEST CLINICAL HISTORY: Dyspnea. FINDINGS: An AP, portable, upright chest radiograph is compared to study dated 11/19/2019. The examinat ion is degraded by portable technique and patient rotation. The heart is enlarged noting atherosclero tic calcification of the thoracic aorta. There is mild pulmonary vascular congestion. Atelectasis is seen at the lung bases. No airspace consolidation or large pleural effusion is identified. No pneumot horax is seen. The skeletal structures are osteopenic. The bony thorax is grossly intact. Calcific te ndinopathy is noted in the left shoulder. IMPRESSION: Cardiomegaly with mild pulmonary vascular congestion. ACT 112: Negative or not required by law. Electronically signed by: Иван Jackson M.D. 12/23/2019 4:32 PM
[2019-12-23 17:04] LABS: Basophils # (auto) 0.02 K/uL (0-0.2); Basophils % (auto) 0.3 %; Hematocrit (blood only) 34.7 % (37-47); Hemoglobin 10.8 g/dL (12.0-16.0); Immature Granulocytes # (auto) 0.09 K/uL (0.00-0.02); Immature Granulocytes % (auto) 1.1 %; Lymphocytes # (auto) 1.22 K/uL (1.2-3.4); Lymphocytes % (auto) 15.4 %; Mean Corpuscular Hemoglobin 28.3 pg (25-34); Mean Corpuscular Hgb Conc 31.1 g/dL (32-36); Mean Corpuscular Volume 90.8 fL (80-100); Mean Platelet Volume 9.6 fL (7.4-10.4); Monocytes # (auto) 0.72 K/uL (0.11-0.59); Monocytes % (auto) 9.1 %; Neutrophils # (auto) 5.48 K/uL (1.4-6.5); Neutrophils % (auto) 69.1 %; Platelet Count 207 K/uL (130-400); RDW Coefficient of Variation 15.1 % (11.5-14.5); RDW Standard Deviation 50.2 fL (36.4-46.3); Red Blood Count 3.82 M/uL (4.2-5.4); White Blood Count 7.93 K/uL (4.8-10.8)
[2019-12-23 17:15] LABS: INR 2.7 (0.9-1.1); Partial Thromboplastin Ratio 1.3; Partial Thromboplastin Time 37.1 Seconds (21.0-31.0); Prothrombin Time 27.1 Seconds (9.0-12.0)
[2019-12-23 17:22] LABS: BUN Creatinine Ratio 23.4 (10-20); Calcium 8.8 mg/dl (8.5-10.1); Creatinine Clr Calc Pharmacy 24.9 ml/min; Est GFR (African American) 23.8; Est GFR (Non-African American) 20.5; Potassium 3.7 mmol/L (3.5-5.1)
[2019-12-23 17:26] LABS: Albumin Globulin Ratio 0.8 (0.9-2); Bilirubin,Total 0.2 mg/dl (0.2-1); Globulin 3.8 gm/dl (2.5-4.0); Total Protein 6.8 gm/dl (6.4-8.2); Troponin I 0.015 ng/ml (0-0.045)
[2019-12-23] MEDS ORDERED: BUMETANIDE 2 MG in SYRINGE 0 ML IV ONE (18:40)
--- NOTE | 2019-12-23 20:09 | History & Physical Report ---
Date of Service December 23, 2019 Assessment & Plan (1) Volume overload: Patient with progressive weight gain, edema and SOB despite increase in outpatient diuretic regimen. No respiratory distress, adequate oxygenation on room air. Patient with CKD as well as diastolic CHF. LFTs and BNP WNL -Check TSH and UA (to assess for protein) -Bumex 2mg IV BID -Continue to hold Spironolactone as directed by Neprhology -Closely monitor BUN/Cr/electrolytes with BMP BID, replete as needed -Daily weights -Strick intake/output monitoring Present on Admission?: Yes (2) Paroxysmal A-fib: Presently in sinus bradycardia. Anticoagulated on Coumadin with therapeutic INR = 2.7 -Continue Metoprolol 25mg po qAM -Continue Coumadin 5mg po q M/R, 2.5mg po q T/W/F/S/Sun -Telemetry monitoring with aggressive diuresis Present on Admission?: Yes (3) CKD (chronic kidney disease), stage IV: Patient with CKD, baseline Cr of 2.3 - 2.5. BUN=53 today, Cr=2.25. Electrolytes and metabolic profile favorable. Patient reports adequate UOP with home use of Bumex -Continue to monitor BUN/Cr/electrolytes and UOP -Continue Calcitriol 0.25mg po daily -Avoid nephrotoxic agents -Renal dosing where available Present on Admission?: Yes (4) HTN (hypertension): Blood pressure mildly elevated at present. 162/62 -Continue Metoprolol -Continue Isosorbide mononitrate -Continue to monitor Present on Admission?: Yes (5) Diabetes: Blood sugar controlled at present, 81. HgbAIC on 11/20/19 = 8.8 -Continue insulin basaglar 64u BID -ISS, CF=15, CR=7. Goal blood sugar 100 - 140 -CC diet as tolerated Present on Admission?: Yes (6) Dyslipidemia: Chronic. Stable -Continue Vytorin -Continue Fenofibric acid Present on Admission?: Yes (7) GERD without esophagitis: Chronic. Stable -Continue Protonix 40mg po daily Present on Admission?: Yes (8) Depression: Chronic. Stable -Continue Cymbalta 30mg po qAM -Continue Clonazepam qHS Present on Admission?: Yes (9) Gout, joint: Chronic. Stable -Continue Allopurinol 100 mg po daily Present on Admission?: Yes (10) Allergic rhinitis: Chronic. Stable -Continue Azelastine Present on Admission?: Yes (11) Obstructive sleep apnea of adult: Chronic. Patient reports compliance with home CPAP -Continue CPAP qHS Present on Admission?: Yes (12) Hypothyroidism: Chronic. -Check Tsh -Continue Synthroid Present on Admission?: Yes (13) Chronic diastolic (congestive) heart failure: Chronic. -Continue Metoprolol, Isosorbide F/E/N - diuresis as above with close monitoring of renal panel, CC/AHA/Low Na diet as tolerated, continue Colace QID as dosed at home Ppx - Anticoagulated on Coumadin, On home Protonix for GERD Code - DNR/DNI Dispo - Observation to medical floor with telemetry Present on Admission?: Yes History of Present Illness Chief Complaint: Outpatient diuretic failure Primary Care Provider: Alfred Mckeon, WILLIAMS, ACUTE CARE NURSING ASSISTANT Ms. Beverley Baer is a pleasant 74yo C female with multiple medical problems to include CAD/CHF/HTN/DM/PAF and CKD stage III presenting with failed outpatient diuretic therapy. Patient follows with Dr. Sanchez of Nephrology, last seen on 12/09/19. She had been taking Spironolactone which has been on hold since 12/23/19 per direction of Nephrology. Daily diuretic regimen was Bumex 2mg po BID with instruction to take an extra dose of Bumex if her weight goes above 226#. She has been taking an extra dose of Bumex since 12/15/19. Her weight continues to increase , was 218# on 12/09, increased to 235.5 today despite the increased Bumex. Patient also complaining of some SOB/CARR which started 2 days ago, cough productive for clear phlegm and progressive bilateral LE edema. She denies fevers/chills/chest pain/palpitations/abdominal pain/nausea/vomiting/diarrhea or constipation. She reports normal UOP with no dysuria/hematuria. No recent travel. No sick contacts. No suspicion for exposure to Covid-19 ER Course: Bumex 2mg IV Allergies Allergy/AdvReac Type Severity Reaction Status Date / Time clarithromycin Allergy Intermediate RASH AND Verified 12/23/19 16:56 ITCHING Home Medications Home Medications Medication Instructions Recorded Confirmed Type nitroglycerin [Nitrostat] 0.4 mg UT UD PRN #0 09/28/09 12/23/19 History spironolactone [Aldactone] 0 mg PO BID #0 09/28/09 12/23/19 History ezetimibe-simvastatin [Vytorin 1 tab PO HS #0 12/08/15 12/23/19 History 10-40] cranberry fruit concentrate 250 mg 500 mg PO QDL tab 08/20/18 12/23/19 History chewable tablet betamethasone dipropionate 0.05 % 1 appln TOPICAL UD PRN gm 05/10/19 12/23/19 History topical cream docusate sodium 100 mg capsule 100 mg PO QID cap 05/10/19 12/23/19 History fexofenadine 180 mg tablet 180 mg PO QAM tab 05/10/19 12/23/19 History lancets 33 gauge #100 ea 05/10/19 12/09/19 History terconazole 0.4 % vaginal cream 1 appl PV Q2D PRN gm 08/16/19 12/23/19 History blood sugar diagnostic #400 ea 09/07/19 12/09/19 Rx bumetanide 2 mg tablet 2 mg PO BID 90 Days #180 tab 10/07/19 12/23/19 Rx azelastine 137 mcg (0.1 %) nasal 2 sprays INTNAS BID #90 ml 10/28/19 12/23/19 Rx spray aerosol ergocalciferol (vitamin D2) 50,000 unit PO UD 11/19/19 12/23/19 History isosorbide mononitrate 90 mg PO QAM 11/19/19 12/23/19 History Basaglar LuoikPen U-100 Insulin 100 64 unit SC BID #45 ml NS 11/30/19 12/23/19 Rx unit/mL (3 mL) subcutaneous warfarin 5 mg tablet 2.5 mg PO [id number] 12/02/19 12/23/19 History pen needle, diabetic 31 gauge x #500 ea 12/22/19 Rx 12/26" allopurinol [Zyloprim] 100 mg PO QAM 12/23/19 12/23/19 History calcitriol [Rocaltrol] 0.25 mcg PO DAILY 12/23/19 12/23/19 History clonazepam [Klonopin] 0.5 mg PO HS 12/23/19 12/23/19 History duloxetine [Cymbalta] 30 mg PO QAM 12/23/19 12/23/19 History fenofibric acid (choline) 135 mg PO QAM 12/23/19 12/23/19 History [Trilipix] insulin aspart U-100 [Novolog 0 unit SUBCUT HS 12/23/19 12/23/19 History Flexpen U-100 Insulin] insulin aspart U-100 [Novolog 14 unit SUBCUT QDD 12/23/19 12/23/19 History Flexpen U-100 Insulin] insulin aspart U-100 [Novolog 14 units SUBCUT QDB 12/23/19 12/23/19 History Flexpen U-100 Insulin] insulin aspart U-100 [Novolog 18 unit SUBCUT QDL 12/23/19 12/23/19 History Flexpen U-100 Insulin] levothyroxine [Synthroid] 75 mcg PO DAILYBB 12/23/19 12/23/19 History metoclopramide HCl [Reglan] 10 mg PO QDD 12/23/19 12/23/19 History metoprolol tartrate 25 mg PO QAM 12/23/19 12/23/19 History pantoprazole [Protonix] 40 mg PO DAILYBB 12/23/19 12/23/19 History potassium chloride [Klor-Con M20] 20 meq PO QAM 12/23/19 12/23/19 History warfarin [Coumadin] 5 mg PO MOTH 12/23/19 12/23/19 History Past Med/Surg History Social History Preferred Language: Macedonian Communication Ability: Effective Visual Impairment: Limited Hearing Ability: Normal Resident Physician In Radiology Required: No Beliefs That Will Affect Care: None marital status: Single Current Living Situation: Alone current occupational status: retired Feels Safe at Home: Yes Smoking Status: Never smoker Hx Alcohol Use: No Hx Substance Use: No Dental Care, Regularly: Yes Physical Activity Frequency: Does not Exercise Seatbelt Use: always Do you think of yourself as: straight/heterosexual Review of Systems Review of Systems: All systems reviewed & are unremarkable except as noted in HPI & below Physical Exam Physical Exam: General: patient resting comfortably, NAD, non-toxic in appearance, AA&O x 4 Skin: warm, dry, intact, no rashes or lesions HEENT: NC/AT, PERRL, EOMI, anicteric sclera, conjunctiva without injection, external ear normal to inspection and nontender, nares patent, moist mucus membranes, upper dentures in place, no oropharyngeal lesions, neck supple, trachea midline, no LAD, no thyromegaly, no JVD Heart: +S1/S2, regular, no m/r/g Lungs: equal air entry bilaterally, coarse breath sounds in bilateral bases, no wheezing Abd: +BS, soft, NT/ND, no masses/organomegaly/ascites Ext: warm, 2+ pulses in UE/LE bilaterally, no clubbing/cyanosis, surgical absence of tip of left great toe, 3+ pitting edema to knees bilaterally Neuro: nonfocal, patient AA&O x 4, speech intact, no facial droop, moving all extremities on command with equal strength 5/5 Results & Data Vital Signs (Past 12 Hours) Vital Signs Temp Pulse Resp BP Pulse Ox 12/23/19 19:00 96 12/23/19 18:30 96 12/23/19 18:22 96 12/23/19 18:00 97 12/23/19 17:30 96 12/23/19 17:00 58 L 17 96 12/23/19 16:30 58 L 17 96 12/23/19 16:27 60 14 162/62 H 97 12/23/19 15:15 37.1 C 64 20 145/62 H 93 Laboratory Results Lab Results 12/23/19 12/23/19 12/23/19 Range/Units 16:55 16:55 16:55 WBC 7.93 (4.8-10.8) K/uL RBC 3.82 L (4.2-5.4) M/uL Hgb 10.8 L (12.0-16.0) g/dL Hct 34.7 L (37-47) % MCV 90.8 (80-100) fL MCH 28.3 (25-34) pg MCHC 31.1 L (32-36) g/dL RDW Std Deviation 50.2 H (36.4-46.3) fL RDW Coeff of Melonie 15.1 H (11.5-14.5) % Plt Count 207 (130-400) K/uL MPV 9.6 (7.4-10.4) fL Immature Gran % (Auto) 1.1 % Neut % (Auto) 69.1 % Lymph % (Auto) 15.4 % Cobb % (Auto) 9.1 % Eos % (Auto) 5.0 % Baso % (Auto) 0.3 % Immature Gran # (Auto) 0.09 H (0.00-0.02) K/uL Neut # (Auto) 5.48 (1.4-6.5) K/uL Lymph # (Auto) 1.22 (1.2-3.4) K/uL Cobb # (Auto) 0.72 H (0.11-0.59) K/uL Eos # (Auto) 0.40 (0-0.5) K/uL Baso # (Auto) 0.02 (0-0.2) K/uL PT 27.1 H (9.0-12.0) Seconds INR 2.7 H (0.9-1.1) APTT 37.1 H (21.0-31.0) Seconds PTT Ratio 1.3 Sodium 140 (136-145) mmol/L Potassium 3.7 (3.5-5.1) mmol/L Chloride 105 (98-107) mmol/L Carbon Dioxide 31 (21-32) mmol/L Anion Gap 4.0 (3-11) BUN 53 H (7-18) mg/dl Creatinine 2.25 H (0.6-1.2) mg/dl Est Cr Clr Drug Dosing 24.9 ml/min Est GFR ( Amer) 23.8 Est GFR (Non-Af Amer) 20.5 BUN/Creatinine Ratio 23.4 H (10-20) Glucose 81 (70-99) mg/dl Calcium 8.8 (8.5-10.1) mg/dl Total Bilirubin 0.2 (0.2-1) mg/dl AST 22 (15-37) U/L ALT 22 (12-78) U/L Alkaline Phosphatase 37 L (45-117) U/L Troponin I 0.015 (0-0.045) ng/ml NT-Pro-B Natriuret Pep 914 (0-1800) pg/ml Total Protein 6.8 (6.4-8.2) gm/dl Albumin 3.0 L (3.4-5.0) gm/dl Globulin 3.8 (2.5-4.0) gm/dl Albumin/Globulin Ratio 0.8 L (0.9-2) Diagnostic Findings SINGLE VIEW CHEST CLINICAL HISTORY: Dyspnea. FINDINGS: An AP, portable, upright chest radiograph is compared to study dated 11/19/2019. The examination is degraded by portable technique and patient rotation. The heart is enlarged noting atherosclerotic calcification of the thoracic aorta. There is mild pulmonary vascular congestion. Atelectasis is seen at the lung bases. No airspace consolidation or large pleural effusion is identified. No pneumothorax is seen. The skeletal structures are osteopenic. The bony thorax is grossly intact. Calcific tendinopathy is noted in the left shoulder. IMPRESSION: Cardiomegaly with mild pulmonary vascular congestion. ACT 112: Negative or not required by law. Electronically signed by: Иван Jackson M.D. 12/23/2019 4:32 PM Dictated: 12/23/19 1632 Transcribed: 12/23/19 1632 ECG Additional Comments: Sinus bradycardia at 59bpm, left axis deviation, DX=793, OIK=972, RIe=285, no acute ischemic changes present Code Status & VTE Plan Code Status DNR/DNI per discussion with patient VTE Prophylaxis Plan VTE Prophylaxis will be ordered: Yes PG Care Time/CCT Total # of Minutes Spent Total Time Spent with Patient: Total time spent is greater than 50% in coordination of care (as documented) at patient's floor/unit and/or counseling patient: Coding Level of Care Code 33026 OBS Care - Level 3 Diagnoses Volume overload E87.79 Hypervolemia type: other Paroxysmal A-fib I48.0 CKD (chronic kidney disease), stage IV N18.4 HTN (hypertension) I10 Hypertension type: essential hypertension Diabetes E11.9; Z79.4 Diabetes mellitus type: type 2 Diabetes mellitus ferry terminal agent insulin use: with prison use Diabetes mellitus complication status: without complication Dyslipidemia E78.5 GERD without esophagitis K21.9 Depression F32.9 Depression Type: major depressive disorder Major depression recurrence: unspecified whether recurrent Active/Remission status: remission status unspecified Gout, joint M10.9 Allergic rhinitis J30.9 Allergic rhinitis trigger: unspecified Allergic rhinitis seasonality: unspecified Obstructive sleep apnea of adult G47.33 Hypothyroidism E03.9 Hypothyroidism type: unspecified Chronic diastolic (congestive) heart failure I50.32 (1) Volume overload Hypervolemia type: other Qualified Code(s): E87.79 - Other fluid overload (2) HTN (hypertension) Hypertension type: essential hypertension Qualified Code(s): I10 - Essential (primary) hypertension (3) Allergic rhinitis Allergic rhinitis trigger: unspecified Allergic rhinitis seasonality: unspecified Qualified Code(s): J30.9 - Allergic rhinitis, unspecified (4) Depression Depression Type: major depressive disorder Major depression recurrence: unspecified whether recurrent Active/Remission status: remission status unspecified Qualified Code(s): F32.9 - Major depressive disorder, single episode, unspecified (5) Hypothyroidism Hypothyroidism type: unspecified Qualified Code(s): E03.9 - Hypothyroidism, unspecified (6) Diabetes Diabetes mellitus type: type 2 Diabetes mellitus ferry terminal agent insulin use: with prison use Diabetes mellitus complication status: without complication Qualified Code(s): E11.9 - Type 2 diabetes mellitus without complications; Z79.4 - medical terminologist (current) use of insulin
[2019-12-23] MEDS ORDERED: GLUCOSE 10 TABS/TUBE PO PRN (21:32)
[2019-12-23] MEDS ORDERED: GLUCOSE 40% GEL 15 GM TUBE PO PRN (21:32)
[2019-12-23] MEDS ORDERED: GLUCAGON FOR INJ 1 MG VIAL SQ PRN (21:32)
[2019-12-23] MEDS ORDERED: DEXTROSE 50% 50 ML SYRINGE IV PRN (21:32)
[2019-12-23] MEDS: INSULIN ASPART 100 UNITS/ML 3 ML PEN SC SCH (21:37)
[2019-12-23 21:58] LABS: Magnesium 2.3 mg/dl (1.8-2.4); Phosphorus 3.3 mg/dl (2.5-4.9)
[2019-12-23] MEDS: EZETIMIBE/SIMVASTATIN 10/40MG 1 TAB TAB PO SCH (22:41)
[2019-12-23] MEDS: DOCUSATE SODIUM 100 MG CAP PO SCH (22:41)
[2019-12-23] MEDS: INSULIN GLARGINE 100 UNIT/ML VIAL SC SCH (22:42)
[2019-12-23] MEDS: clonazePAM 0.5 MG TAB PO SCH (22:43)
[2019-12-23] MEDS: AZELASTINE~ORDER AWAITING ACTION SCH ×2 (22:59→23:11)
[2019-12-23 23:41] LABS: Influenza B virus by PCR Neg for Influ B (Neg)
[2019-12-24] MEDS: LEVOTHYROXINE SODIUM 75 MCG TABLET PO SCH (04:37)
[2019-12-24] MEDS: PANTOprazole 40 MG TAB PO SCH (04:37)
[2019-12-24] MEDS: AZELASTINE~ORDER AWAITING ACTION SCH ×2 (07:41→15:45)
[2019-12-24 08:09] LABS: BUN Creatinine Ratio 23.9 (10-20); Calcium 8.9 mg/dl (8.5-10.1); Creatinine Clr Calc Pharmacy 26.3 ml/min; Est GFR (African American) 26.1; Est GFR (Non-African American) 22.6; Magnesium 2.2 mg/dl (1.8-2.4); Potassium 3.3 mmol/L (3.5-5.1)
[2019-12-24 08:20] LABS: Thyroid Stimulating Hormone 2.24 uIu/ml (0.300-4.500)
[2019-12-24] MEDS ORDERED: METOPROLOL TARTRATE 25 MG TAB PO SCH (09:00)
[2019-12-24] MEDS ORDERED: POTASSIUM CHLORIDE 20 MEQ TABCR PO STA (09:18)
[2019-12-24] MEDS: INSULIN ASPART 100 UNITS/ML 3 ML PEN SC SCH ×4 (09:27→21:13)
[2019-12-24] MEDS: BENZONATATE 100 MG CAPSULE PO SCH ×3 (09:28→21:08)
[2019-12-24] MEDS: OSELTAMIVIR PHOSPHATE SUSP 30 MG/5 ML UDP PO SCH (09:29)
[2019-12-24] MEDS: BUMETANIDE 2 MG in SYRINGE 0 ML IV SCH ×2 (09:29→20:53)
[2019-12-24] MEDS: CALCITRIOL 0.25 MCG CAPSULE PO SCH (09:30)
[2019-12-24] MEDS: DOCUSATE SODIUM 100 MG CAP PO SCH ×4 (09:30→21:05)
[2019-12-24] MEDS: allopurinoL 100 MG TAB PO SCH (09:30)
[2019-12-24] MEDS: FEXOFENADINE HCL 180 MG TAB PO SCH (09:31)
[2019-12-24] MEDS: DULOXETINE HCL 30 MG CAP PO SCH (09:31)
[2019-12-24] MEDS: ISOSORBIDE MONO EXTENDED REL 30 MG TABCR PO SCH (09:32)
[2019-12-24] MEDS: ACETAMINOPHEN 325 MG TAB PO PRN ×2 (09:34→16:14)
[2019-12-24] MEDS: INSULIN GLARGINE 100 UNIT/ML VIAL SC SCH ×2 (09:35→21:12)
[2019-12-24] MEDS ORDERED: COUGH DROP (SUGAR FREE) LOZ 24 LOZ/1 BOX BUCCAL ONE (09:41)
--- NOTE | 2019-12-24 11:50 | Hospitalist Progress Note ---
Date of Service December 24, 2019 Assessment & Plan (1) Volume overload: * Patient with CKD, diastolic CHF, HTN, TAMMIE on CPAP presented with increasing weight gain, edema, SOB and cough despite outpatient diuretic regimen of bumex 2mg PO BID. ER provider spoke with Dr. Mckay who suggested Bumex 2mg IV BID for diuresis. Also +Flu A * Wt 102.6kg -- previoiusly 98.2kg on 12/09 * Daily weights, strict I&O * Continue Bumex 2mg IV BID * Spironolactone on hold as directed by Nephrology * ECHO nov 2019 with mild LVH, grade I diastolic dysfunction, EF 55-60%, mild AR (2) Influenza A: * Tamiflu 30mg daily per kidney function -- initiated 12/23 (3) Paroxysmal A-fib: * On coumadin. INR 2.7 * Repeat INR in AM * Continue coumadin 2.5mg PO T/W/F/S/Sun and 5mg PO M * Has been SR with 1st degree AV block on monitor but did have period of time up to 130s with what appears to be MAT * Currently 92bpm -- will increase metoprolol tartrate 25mg daily to 25mg BID, as patient also hypertensive art 176/66 * Continue to monitor on telemetry (4) CKD (chronic kidney disease), stage IV: * Patient with CKD, baseline Cr of 2.3 - 2.5. BUN=53, Cr=2.25 on admission (BUN was 90/71 and Cr 3.32/2.7 at the end of november with increasing dose of bumex) * Cr improved slightly to 2.08, BUN 50 * Continue Calcitriol 0.25mg po daily * Avoid nephrotoxic agents * Renally dose medications when possible * Consult nephrology in AM if Cr worsens above baseline * Monitor BMP (5) HTN (hypertension): * Chronic. Elevated at 179/66. Asymptomatic at this time * Continue home isosorbide mononitrate 90mg * Increase metoprolol tartrate 25mg daily to BID * Continue to monitor (6) Diabetes: * Chronic. Most recent A1c 8.8 in November 2019 * Continue basal glargine 64 units BID * ISS with CF 15, CR 7, Goal 100-140 * BSGs 86-147 over last 25 hours (7) Chronic diastolic (congestive) heart failure: * Chronic. ECHO nov 2019 with diastolic dysfunction grade I , EF 55-60%, mild AR, mild LVH * Increase home metoprolol to 25mg bid as above * Continue home isosorbide (8) Obstructive sleep apnea of adult: * Chronic. Patient reports compliance with home CPAP. Present in room * Continue CPAP qHS (9) Hypothyroidism: * Chronic. Stable. TSH 2.24 * Continue home levothyroxine 75mcg daily (10) Hypokalemia: * K 3.3 - given 20meq -- cautious in patient with CKD * Monitor in AM (11) Cough: * Without improvement with Tessalon pearls * Ordered dextromethorphan/guaifenesin * Continue to monitor -- likely component of volume overload/influenza * DuoNeb Q4prn * Flutter valve QID * Incentive spirometer Q1h WA (12) Dyslipidemia: * Chronic. Stable * Continue home vytorin (ezetimibime-simvastatin) and fenofibric acid which needs to be brought in from home (13) GERD without esophagitis: * Chronic. Stable * Continue Protonix 40mg po daily (14) Depression: * Chronic. Stable * Continue Cymbalta 30mg po qAM, Clonazepam qHS (15) Gout, joint: * Chronic. Stable * Continue Allopurinol 100 mg po daily (16) Allergic rhinitis: * Chronic. Stable * Continue Azelastine -- has not received yet * Continue home Marie (17) DVT prophylaxis: * Continue coumadin. INR 2.7 * Repeat INR in AM Dispo: continue diuresis, tamiflu. likely to remain hospitalized at least additional 1-2 days. Admission and Anticipated Discharge Date Admission Date: December 23, 2019 Supervising Physician Co-Signing Physician Notes PA Supervision Note: I did not personally see or examine the patient today, but I verified all flor points of CHRISTY Lance's assessment and plan with the following exceptions/additions: None Subjective Patient evaluated at bedside this morning. States she feels about the same as she did yesterday. Still with non-productive cough which has been quite persistant. Without relief with tessalon pearls. She feels like something is stuck in her throat that she cannot cough up. Requested to try something different for cough. States she has been having issues with excessive fluid and edema and noticed that her pants have been fitting a little more tightly. She states she has not had a fever, but has felt warm at times. Eating and drinking without difficulty. Not on O2 at home at baseline, just CPAP at night for sleep apnea. Discussed continuing IV bumex and tamiflu for now. Patient with concerns that her sisters may catch the flu because they have all been around each other, but denies any known sick contacts currently or recent travel. Review of Systems Review of Systems: All systems reviewed & are unremarkable except as noted in HPI & below Physical Exam Constitutional: WD/WN, vitals as above + ill appearing and + obese; no acute distress ENMT: mmm top dentures present Neck: trachea midline, no thyromegaly Respiratory: normal respiratory effort and + cough; no respiratory distress and no labored breathing Auscultation: + crackles (bibasilar), + rhonchi and + wheezes Cardiovascular: Rate/Rhythm: + irregularly irregular Heart Sounds: no murmur Extremities: + edema (3+ to knees b/l LE) unable to assess JVD due to patient body habitus Gastrointestinal (Abdomen): normal bowel sounds, soft, nontender, no hepatosplenomegaly Musculoskeletal: no cyanosis or clubbing, extremities motor strength 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 Skin: no rashes, warm and dry Neurologic: PERRL, EOMI, accommodation nl, no face palsy, no dysarthria Psychiatric: A+Ox3, euthymic affect Lymphatic: no cervical or axillary lymphadenopathy Results & Data ([facility]) Vital Signs (Past 12 Hours) Vital Signs Temp Pulse Pulse Resp BP Pulse Ox 12/24/19 09:27 92 12/24/19 09:26 117 H 24 88 L 12/24/19 07:57 37.0 C 96 H 18 163/61 H 90 12/24/19 04:40 148/78 H 12/24/19 03:29 37.1 C 93 H 20 175/75 H 91 12/23/19 23:55 74 18 95 Laboratory Results 12/24/19 12/24/19 12/24/19 Range/Units 13:35 11:49 07:36 WBC (4.8-10.8) K/uL RBC (4.2-5.4) M/uL Hgb (12.0-16.0) g/dL Hct (37-47) % MCV (80-100) fL MCH (25-34) pg MCHC (32-36) g/dL RDW Std Deviation (36.4-46.3) fL RDW Coeff of Melonie (11.5-14.5) % Plt Count (130-400) K/uL MPV (7.4-10.4) fL Immature Gran % (Auto) % Neut % (Auto) % Lymph % (Auto) % [place] % (Auto) % Eos % (Auto) % Baso % (Auto) % Immature Gran # (Auto) (0.00-0.02) K/uL Neut # (Auto) (1.4-6.5) K/uL Lymph # (Auto) (1.2-3.4) K/uL [place] # (Auto) (0.11-0.59) K/uL Eos # (Auto) (0-0.5) K/uL Baso # (Auto) (0-0.2) K/uL PT (9.0-12.0) Seconds INR (0.9-1.1) APTT (21.0-31.0) Seconds PTT Ratio Sodium (136-145) mmol/L Potassium (3.5-5.1) mmol/L Chloride (98-107) mmol/L Carbon Dioxide (21-32) mmol/L Anion Gap (3-11) BUN (7-18) mg/dl Creatinine (0.6-1.2) mg/dl Est Cr Clr Drug Dosing ml/min Est GFR ( Amer) Est GFR (Non-Af Amer) BUN/Creatinine Ratio (10-20) Glucose (70-99) mg/dl POC Glucose 147 H 106 H (70-99) mg/dl Calcium (8.5-10.1) mg/dl Phosphorus (2.5-4.9) mg/dl Magnesium (1.8-2.4) mg/dl Total Bilirubin (0.2-1) mg/dl AST (15-37) U/L ALT (12-78) U/L Alkaline Phosphatase (45-117) U/L Troponin I (0-0.045) ng/ml NT-Pro-B Natriuret Pep (0-1800) pg/ml Total Protein (6.4-8.2) gm/dl Albumin (3.4-5.0) gm/dl Globulin (2.5-4.0) gm/dl Albumin/Globulin Ratio (0.9-2) TSH (0.300-4.500) uIu/ml Urine Color Yellow Urine Appearance Clear (Clear) Urine pH 5.0 (4.5-7.5) Ur Specific [place] 1.015 (1.000-1.030) Urine Protein Trace H (Negative) Urine Glucose (UA) Negative (Negative) Urine Ketones Negative (Negative) Urine Blood Trace H (Negative) Urine Nitrite Negative (Negative) Urine Bilirubin Negative (Negative) Urine Urobilinogen Negative (Negative) Ur Leukocyte Esterase 1+ H (Negative) Urine WBC (Auto) 10-30 H (0-5) /hpf Urine RBC (Auto) 0-4 (0-4) /hpf U Hyaline Cast (Auto) 1-5 (0-5) /lpf U Epithel Cells (Auto) >30 H (0-5) /lpf Urine Bacteria (Auto) Negative (Negative) Influenza Type A (PCR) (Neg) Influenza Type B (PCR) (Neg) 12/24/19 12/23/19 12/23/19 Range/Units 06:48 22:35 21:31 WBC (4.8-10.8) K/uL RBC (4.2-5.4) M/uL Hgb (12.0-16.0) g/dL Hct (37-47) % MCV (80-100) fL MCH (25-34) pg MCHC (32-36) g/dL RDW Std Deviation (36.4-46.3) fL RDW Coeff of Melonie (11.5-14.5) % Plt Count (130-400) K/uL MPV (7.4-10.4) fL Immature Gran % (Auto) % Neut % (Auto) % Lymph % (Auto) % [place] % (Auto) % Eos % (Auto) % Baso % (Auto) % Immature Gran # (Auto) (0.00-0.02) K/uL Neut # (Auto) (1.4-6.5) K/uL Lymph # (Auto) (1.2-3.4) K/uL [place] # (Auto) (0.11-0.59) K/uL Eos # (Auto) (0-0.5) K/uL Baso # (Auto) (0-0.2) K/uL PT (9.0-12.0) Seconds INR (0.9-1.1) APTT (21.0-31.0) Seconds PTT Ratio Sodium 140 (136-145) mmol/L Potassium 3.3 L (3.5-5.1) mmol/L Chloride 107 (98-107) mmol/L Carbon Dioxide 28 (21-32) mmol/L Anion Gap 6.0 (3-11) BUN 50 H (7-18) mg/dl Creatinine 2.08 H (0.6-1.2) mg/dl Est Cr Clr Drug Dosing 26.3 ml/min Est GFR ( Amer) 26.1 Est GFR (Non-Af Amer) 22.6 BUN/Creatinine Ratio 23.9 H (10-20) Glucose 106 H (70-99) mg/dl POC Glucose 86 (70-99) mg/dl Calcium 8.9 (8.5-10.1) mg/dl Phosphorus (2.5-4.9) mg/dl Magnesium 2.2 (1.8-2.4) mg/dl Total Bilirubin (0.2-1) mg/dl AST (15-37) U/L ALT (12-78) U/L Alkaline Phosphatase (45-117) U/L Troponin I (0-0.045) ng/ml NT-Pro-B Natriuret Pep (0-1800) pg/ml Total Protein (6.4-8.2) gm/dl Albumin (3.4-5.0) gm/dl Globulin (2.5-4.0) gm/dl Albumin/Globulin Ratio (0.9-2) TSH 2.240 (0.300-4.500) uIu/ml Urine Color Urine Appearance (Clear) Urine pH (4.5-7.5) Ur Specific [place] (1.000-1.030) Urine Protein (Negative) Urine Glucose (UA) (Negative) Urine Ketones (Negative) Urine Blood (Negative) Urine Nitrite (Negative) Urine Bilirubin (Negative) Urine Urobilinogen (Negative) Ur Leukocyte Esterase (Negative) Urine WBC (Auto) (0-5) /hpf Urine RBC (Auto) (0-4) /hpf U Hyaline Cast (Auto) (0-5) /lpf U Epithel Cells (Auto) (0-5) /lpf Urine Bacteria (Auto) (Negative) Influenza Type A (PCR) Pos for Influ A A* (Neg) Influenza Type B (PCR) Neg for Influ B (Neg) 12/23/19 12/23/19 12/23/19 Range/Units 16:55 16:55 16:55 WBC (4.8-10.8) K/uL RBC (4.2-5.4) M/uL Hgb (12.0-16.0) g/dL Hct (37-47) % MCV (80-100) fL MCH (25-34) pg MCHC (32-36) g/dL RDW Std Deviation (36.4-46.3) fL RDW Coeff of Melonie (11.5-14.5) % Plt Count (130-400) K/uL MPV (7.4-10.4) fL Immature Gran % (Auto) % Neut % (Auto) % Lymph % (Auto) % [place] % (Auto) % Eos % (Auto) % Baso % (Auto) % Immature Gran # (Auto) (0.00-0.02) K/uL Neut # (Auto) (1.4-6.5) K/uL Lymph # (Auto) (1.2-3.4) K/uL [place] # (Auto) (0.11-0.59) K/uL Eos # (Auto) (0-0.5) K/uL Baso # (Auto) (0-0.2) K/uL PT 27.1 H (9.0-12.0) Seconds INR 2.7 H (0.9-1.1) APTT 37.1 H (21.0-31.0) Seconds PTT Ratio 1.3 Sodium 140 (136-145) mmol/L Potassium 3.7 (3.5-5.1) mmol/L Chloride 105 (98-107) mmol/L Carbon Dioxide 31 (21-32) mmol/L Anion Gap 4.0 (3-11) BUN 53 H (7-18) mg/dl Creatinine 2.25 H (0.6-1.2) mg/dl Est Cr Clr Drug Dosing 24.9 ml/min Est GFR ( Amer) 23.8 Est GFR (Non-Af Amer) 20.5 BUN/Creatinine Ratio 23.4 H (10-20) Glucose 81 (70-99) mg/dl POC Glucose (70-99) mg/dl Calcium 8.8 (8.5-10.1) mg/dl Phosphorus 3.3 (2.5-4.9) mg/dl Magnesium 2.3 (1.8-2.4) mg/dl Total Bilirubin 0.2 (0.2-1) mg/dl AST 22 (15-37) U/L ALT 22 (12-78) U/L Alkaline Phosphatase 37 L (45-117) U/L Troponin I 0.015 (0-0.045) ng/ml NT-Pro-B Natriuret Pep 914 (0-1800) pg/ml Total Protein 6.8 (6.4-8.2) gm/dl Albumin 3.0 L (3.4-5.0) gm/dl Globulin 3.8 (2.5-4.0) gm/dl Albumin/Globulin Ratio 0.8 L (0.9-2) TSH (0.300-4.500) uIu/ml Urine Color Urine Appearance (Clear) Urine pH (4.5-7.5) Ur Specific [place] (1.000-1.030) Urine Protein (Negative) Urine Glucose (UA) (Negative) Urine Ketones (Negative) Urine Blood (Negative) Urine Nitrite (Negative) Urine Bilirubin (Negative) Urine Urobilinogen (Negative) Ur Leukocyte Esterase (Negative) Urine WBC (Auto) (0-5) /hpf Urine RBC (Auto) (0-4) /hpf U Hyaline Cast (Auto) (0-5) /lpf U Epithel Cells (Auto) (0-5) /lpf Urine Bacteria (Auto) (Negative) Influenza Type A (PCR) (Neg) Influenza Type B (PCR) (Neg) 12/23/19 Range/Units 16:55 WBC 7.93 (4.8-10.8) K/uL RBC 3.82 L (4.2-5.4) M/uL Hgb 10.8 L (12.0-16.0) g/dL Hct 34.7 L (37-47) % MCV 90.8 (80-100) fL MCH 28.3 (25-34) pg MCHC 31.1 L (32-36) g/dL RDW Std Deviation 50.2 H (36.4-46.3) fL RDW Coeff of Melonie 15.1 H (11.5-14.5) % Plt Count 207 (130-400) K/uL MPV 9.6 (7.4-10.4) fL Immature Gran % (Auto) 1.1 % Neut % (Auto) 69.1 % Lymph % (Auto) 15.4 % [place] % (Auto) 9.1 % Eos % (Auto) 5.0 % Baso % (Auto) 0.3 % Immature Gran # (Auto) 0.09 H (0.00-0.02) K/uL Neut # (Auto) 5.48 (1.4-6.5) K/uL Lymph # (Auto) 1.22 (1.2-3.4) K/uL [place] # (Auto) 0.72 H (0.11-0.59) K/uL Eos # (Auto) 0.40 (0-0.5) K/uL Baso # (Auto) 0.02 (0-0.2) K/uL PT (9.0-12.0) Seconds INR (0.9-1.1) APTT (21.0-31.0) Seconds PTT Ratio Sodium (136-145) mmol/L Potassium (3.5-5.1) mmol/L Chloride (98-107) mmol/L Carbon Dioxide (21-32) mmol/L Anion Gap (3-11) BUN (7-18) mg/dl Creatinine (0.6-1.2) mg/dl Est Cr Clr Drug Dosing ml/min Est GFR ( Amer) Est GFR (Non-Af Amer) BUN/Creatinine Ratio (10-20) Glucose (70-99) mg/dl POC Glucose (70-99) mg/dl Calcium (8.5-10.1) mg/dl Phosphorus (2.5-4.9) mg/dl Magnesium (1.8-2.4) mg/dl Total Bilirubin (0.2-1) mg/dl AST (15-37) U/L ALT (12-78) U/L Alkaline Phosphatase (45-117) U/L Troponin I (0-0.045) ng/ml NT-Pro-B Natriuret Pep (0-1800) pg/ml Total Protein (6.4-8.2) gm/dl Albumin (3.4-5.0) gm/dl Globulin (2.5-4.0) gm/dl Albumin/Globulin Ratio (0.9-2) TSH (0.300-4.500) uIu/ml Urine Color Urine Appearance (Clear) Urine pH (4.5-7.5) Ur Specific [place] (1.000-1.030) Urine Protein (Negative) Urine Glucose (UA) (Negative) Urine Ketones (Negative) Urine Blood (Negative) Urine Nitrite (Negative) Urine Bilirubin (Negative) Urine Urobilinogen (Negative) Ur Leukocyte Esterase (Negative) Urine WBC (Auto) (0-5) /hpf Urine RBC (Auto) (0-4) /hpf U Hyaline Cast (Auto) (0-5) /lpf U Epithel Cells (Auto) (0-5) /lpf Urine Bacteria (Auto) (Negative) Influenza Type A (PCR) (Neg) Influenza Type B (PCR) (Neg) PG Care Time/CCT Total # of Minutes Spent Total Time Spent with Patient: Total time spent is greater than 50% in coordination of care (as documented) at patient's floor/unit and/or counseling patient: Coding Level of Care Code 98119 Subseq Obs Care Lvl 3 Diagnoses Volume overload E87.70 Influenza A J10.1 Paroxysmal A-fib I48.0 CKD (chronic kidney disease), stage IV N18.4 HTN (hypertension) I10 Hypertension type: essential hypertension Diabetes E11.9; Z79.4 Diabetes mellitus complication status: without complication Diabetes mellitus alf insulin use: with exterminator helper use Diabetes mellitus type: type 2 Chronic diastolic (congestive) heart failure I50.32 Obstructive sleep apnea of adult G47.33 Hypothyroidism E03.9 Hypothyroidism type: unspecified Hypokalemia E87.6 Cough R05 Dyslipidemia E78.5 GERD without esophagitis K21.9 Depression F32.9 Active/Remission status: remission status unspecified Depression Type: major depressive disorder Major depression recurrence: unspecified whether recurrent Gout, joint M10.9 Allergic rhinitis J30.9 Allergic rhinitis seasonality: unspecified Allergic rhinitis trigger: unspecified DVT prophylaxis Z29.9 (1) Diabetes Diabetes mellitus complication status: without complication Diabetes mellitus alf insulin use: with exterminator helper use Diabetes mellitus type: type 2 Qualified Code(s): E11.9 - Type 2 diabetes mellitus without complications; Z79.4 - alf (current) use of insulin (2) Depression Active/Remission status: remission status unspecified Depression Type: major depressive disorder Major depression recurrence: unspecified whether recurrent Qualified Code(s): F32.9 - Major depressive disorder, single episode, unspecified (3) Hypothyroidism Hypothyroidism type: unspecified Qualified Code(s): E03.9 - Hypothyroidism, unspecified (4) Allergic rhinitis Allergic rhinitis seasonality: unspecified Allergic rhinitis trigger: unspecified Qualified Code(s): J30.9 - Allergic rhinitis, unspecified (5) HTN (hypertension) Hypertension type: essential hypertension Qualified Code(s): I10 - Essential (primary) hypertension
[2019-12-24] MEDS ORDERED: ALBUT/IPRATROP 3MG/0.5MG NEB 3 ML VIAL NEB PRN (11:55)
[2019-12-24] MEDS: GUAIFENESIN/DEXTROM SYRUP 100MG/10MG 5ML UDC PO PRN ×2 (12:21→18:23)
[2019-12-24 13:50] LABS: Appearance Urine Clear (Clear); Bacteria Urine Automated Negative (Negative); Bilirubin Urine Negative (Negative); Blood Urine Trace (Negative); Color Urine Yellow; Epithelial Cell Urine Auto >30 /lpf (0-5); Glucose Urine UA Negative (Negative); Ketones Urine Negative (Negative); Leukocyte Esterase Urine 1+ (Negative); Nitrite Urine Negative (Negative); Protein Urine Trace (Negative); RBC Urine Automated 0-4 /hpf (0-4); Specific Gravity Urine 1.015 (1.000-1.030); Urobilinogen Urine Negative (Negative)
[2019-12-24] MEDS: WARFARIN SOD 2.5 MG TAB PO SCH (16:16)
[2019-12-24] MEDS: METOCLOPRAMIDE HCL 10 MG TABLET PO SCH (16:17)
--- NOTE | 2019-12-24 16:17 | Electrocardiogram Report ---
Test Reason : Blood Pressure : / mmHG Vent. Rate : 059 BPM Atrial Rate : 059 BPM P-R Int : 240 ms QRS Dur : 118 ms QT Int : 432 ms P-R-T Axes : 053 -39 076 degrees QTc Int : 427 ms Sinus bradycardia with 1st degree A-V block Left axis deviation Left ventricular hypertrophy with QRS widening Abnormal ECG When compared with ECG of 21-NOV-2019 06:36, Premature atrial complexes are no longer Present Confirmed by Mitchel Pritchard ([id number]) on 12/24/2019 4:17:25 PM Referred By: REFERRED SELF Confirmed By:Mitchel Pritchard
[2019-12-24] MEDS ORDERED: HydrALAZINE HCL 20 MG/ML VIAL IV PRN (16:23)
[2019-12-24 17:18] LABS: BUN Creatinine Ratio 20.4 (10-20); Calcium 8.7 mg/dl (8.5-10.1); Creatinine Clr Calc Pharmacy 23.5 ml/min; Est GFR (African American) 22.8; Est GFR (Non-African American) 19.7; Potassium 3.8 mmol/L (3.5-5.1)
--- NOTE | 2019-12-24 19:02 | CT Scan Report ---
CT head/brain wo con CLINICAL HISTORY: 07/22 "worse headache", elevated BP COMPARISON STUDY: MRI the brain performed June 2006 TECHNIQUE: Axial CT of the brain is performed from the vertex to the skull base. IV contrast was not administered for this examination. A dose lowering technique was utilized adhering to the principles of ALARA. CT DOSE: 1572.52 mGy.cm FINDINGS: No intra or extra-axial mass lesions are visualized. There is no CT evidence of acute cortical infarc tion. There is no evidence of midline shift. There is no acute hemorrhage. No calvarial fractures ar e visualized. There are patchy white matter hypodensities likely on a small vessel basis. There is no evidence of pathologic ventricular dilatation. There is no evidence of acute sinusitis IMPRESSION: No acute intracranial findings ACT 112: Negative or not required by law. Electronically signed by: Arnulfo Reeves M.D. 12/24/2019 7:00 PM
[2019-12-24] MEDS: clonazePAM 0.5 MG TAB PO SCH (21:06)
[2019-12-24] MEDS: METOPROLOL TARTRATE 25 MG TAB PO SCH (21:07)
[2019-12-24] MEDS: EZETIMIBE/SIMVASTATIN 10/40MG 1 TAB TAB PO SCH (21:08)
[2019-12-25] MEDS: PANTOprazole 40 MG TAB PO SCH (05:53)
[2019-12-25] MEDS: LEVOTHYROXINE SODIUM 75 MCG TABLET PO SCH (05:53)
[2019-12-25 06:48] LABS: Basophils # (auto) 0.01 K/uL (0-0.2); Basophils % (auto) 0.1 %; Eosinophils # (auto) 0.04 K/uL (0-0.5); Eosinophils % (auto) 0.6 %; Hematocrit (blood only) 33.5 % (37-47); Hemoglobin 10.5 g/dL (12.0-16.0); Immature Granulocytes # (auto) 0.04 K/uL (0.00-0.02); Immature Granulocytes % (auto) 0.6 %; Lymphocytes # (auto) 0.63 K/uL (1.2-3.4); Mean Corpuscular Hemoglobin 28.6 pg (25-34); Mean Corpuscular Hgb Conc 31.3 g/dL (32-36); Mean Corpuscular Volume 91.3 fL (80-100); Mean Platelet Volume 9.7 fL (7.4-10.4); Monocytes # (auto) 0.98 K/uL (0.11-0.59); Neutrophils # (auto) 5.31 K/uL (1.4-6.5); Neutrophils % (auto) 75.7 %; Platelet Count 195 K/uL (130-400); RDW Coefficient of Variation 15.4 % (11.5-14.5); RDW Standard Deviation 51.4 fL (36.4-46.3); Red Blood Count 3.67 M/uL (4.2-5.4); White Blood Count 7.01 K/uL (4.8-10.8)
[2019-12-25 06:56] LABS: INR 2.5 (0.9-1.1); Prothrombin Time 25.1 Seconds (9.0-12.0)
[2019-12-25] MEDS: AZELASTINE~ORDER AWAITING ACTION SCH ×3 (07:13→15:00)
[2019-12-25 07:22] LABS: BUN Creatinine Ratio 20.6 (10-20); Calcium 8.5 mg/dl (8.5-10.1); Creatinine Clr Calc Pharmacy 24.5 ml/min; Est GFR (African American) 24.2; Est GFR (Non-African American) 20.8; Magnesium 2.3 mg/dl (1.8-2.4); Potassium 3.3 mmol/L (3.5-5.1)
[2019-12-25] MEDS ORDERED: POTASSIUM CHLORIDE 20 MEQ TABCR PO STA (07:45)
[2019-12-25] MEDS: INSULIN ASPART 100 UNITS/ML 3 ML PEN SC SCH ×4 (08:14→20:35)
[2019-12-25] MEDS: CALCITRIOL 0.25 MCG CAPSULE PO SCH (08:15)
[2019-12-25] MEDS: METOPROLOL TARTRATE 25 MG TAB PO SCH ×2 (08:15→20:25)
[2019-12-25] MEDS: BENZONATATE 100 MG CAPSULE PO SCH ×3 (08:15→20:26)
[2019-12-25] MEDS: ISOSORBIDE MONO EXTENDED REL 30 MG TABCR PO SCH (08:15)
[2019-12-25] MEDS: BUMETANIDE 2 MG in SYRINGE 0 ML IV SCH ×2 (08:15→20:27)
[2019-12-25] MEDS: FEXOFENADINE HCL 180 MG TAB PO SCH (08:16)
[2019-12-25] MEDS: DULOXETINE HCL 30 MG CAP PO SCH (08:16)
[2019-12-25] MEDS: allopurinoL 100 MG TAB PO SCH (08:16)
[2019-12-25] MEDS: INSULIN GLARGINE 100 UNIT/ML VIAL SC SCH ×2 (08:16→20:37)
[2019-12-25] MEDS: DOCUSATE SODIUM 100 MG CAP PO SCH ×4 (08:19→20:25)
[2019-12-25] MEDS: OSELTAMIVIR PHOSPHATE SUSP 30 MG/5 ML UDP PO SCH (08:21)
[2019-12-25] MEDS: IPRATROPIUM BROMIDE NEB SOLN 0.02% 2.5 ML VIAL INH SCH ×3 (10:36→18:51)
[2019-12-25] MEDS: LEVALBUTEROL HCL 0.63 MG/3 ML NEB NEB SCH ×3 (10:36→18:51)
--- NOTE | 2019-12-25 10:48 | XRay Report ---
XR chest 2V PA/lateral CLINICAL HISTORY: cough/hypoxia, +flu, now w yellow sputum COMPARISON STUDY: 12/23/2019 FINDINGS: Mild stable cardiomegaly. Mild chronic interstitial change. Potential early parenchymal inf iltrate left base. Lungs otherwise appear clear. There is a component of emphysematous change. IMPRESSION: Potential minimal parenchymal infiltrate left base. Study is otherwise similar. ACT 112: Negative or not required by law. The above report was generated using voice recognition software. It may contain grammatical, syntax or spelling errors. Electronically signed by: Clive Martinez M.D. 12/25/2019 10:47 AM
[2019-12-25] MEDS: ACETAMINOPHEN 325 MG TAB PO PRN (11:34)
[2019-12-25] MEDS: cefTRIAXone SODIUM 2,000 MG in DEXTROSE 5% 50 ML IV SCH (11:34)
[2019-12-25] MEDS: DOXYCYCLINE HYCLATE 100 MG in DEXTROSE 5% 100 ML IV SCH ×2 (11:34→20:28)
[2019-12-25] MEDS ORDERED: XOPENEX/ATROVENT 0.63mg/0.5MG NEB COMBO NEB SCH (13:00)
--- NOTE | 2019-12-25 13:09 | Hospitalist Progress Note ---
Date of Service December 25, 2019 Assessment & Plan (1) Influenza A: * Tamiflu 30mg daily per kidney function -- initiated 12/23 * Crackles and wheezing on exam in conjunction with yellow sputum production --> CXR was obtained which revealed potential minimal parenchymal infiltrate left base * Temp 37.6 this morning, Tmax 37.8 12/23 7pm * Initiated on ceftriaxone/doxycycline for superinfection * Continue nebs, although changed to levalbuterol instead of albuterol for elevated HR * Continue Flutter valve QID, Incentive spirometer Q1h WA (2) Volume overload: * Patient with CKD, diastolic CHF, HTN, TAMMIE on CPAP presented with increasing weight gain, edema, SOB and cough despite outpatient diuretic regimen of bumex 2mg PO BID. ER provider spoke with Dr. Mckay who suggested Bumex 2mg IV BID for diuresis. Also +Flu A * Weight currently 101.5kg (previously 98.2kg on 12/09). Wt on admit 106.8kg * Daily weights, strict I&O * Continue Bumex 2mg IV BID * Spironolactone on hold as directed by Nephrology * ECHO nov 2019 with mild LVH, grade I diastolic dysfunction, EF 55-60%, mild AR (3) Paroxysmal A-fib: * On coumadin. INR 2.5 * Follow INR -- expect increase given initiation of abx * Continue coumadin 2.5mg PO T/W/F/S/Sun and 5mg PO M * Has been SR with 1st degree AV block on monitor but did have period of time up to 130s with what appears to be MAT on 12/23 * Patient has been * Currently 92bpm -- will increase metoprolol tartrate 25mg daily to 25mg BID, as patient also hypertensive art 176/66 * Continue to monitor on telemetry (4) CKD (chronic kidney disease), stage IV: * Patient with CKD, baseline Cr of 2.3 - 2.5. BUN=53, Cr=2.25 on admission (BUN was 90/71 and Cr 3.32/2.7 at the end of November with increasing dose of Bumex) * Cr bumped to 2.33 last evening from 2.08, but improving back to 2.22 on AM labs * Continue Calcitriol 0.25mg PO daily * Avoid nephrotoxic agents * Renally dose medications when possible * Consult nephrology in AM if Cr worsens above baseline * Monitor BMP (5) HTN (hypertension): * Chronic. * Continue home isosorbide mononitrate 90mg * Increased metoprolol tartrate 25mg daily to BID on 12/23 for continued HTN * BP better controlled -- 120/65 * Continue to monitor (6) Diabetes: * Chronic. Most recent A1c 8.8 in November 2019 * Continue basal glargine 64 units BID * ISS with CF 15, CR 7, Goal 100-140 * BSGs 96-229 over last 24 hours (7) Chronic diastolic (congestive) heart failure: * Chronic. ECHO nov 2019 with diastolic dysfunction grade I , EF 55-60%, mild AR, mild LVH * Increase home metoprolol to 25mg bid as above * Continue home isosorbide (8) Obstructive sleep apnea of adult: * Chronic. Patient reports compliance with home CPAP. Present in room * Continue CPAP qHS (9) Hypothyroidism: * Chronic. Stable. TSH 2.24 * Continue home levothyroxine 75mcg daily (10) Hypokalemia: * K 3.3 - given 20meq -- cautious in patient with CKD * Monitor in AM (11) Cough: * Secondary to influenza/volume overload/possible pneumonia * Without improvement with Tessalon pearls * Ordered dextromethorphan/guaifenesin * DuoNeb Q4prn * Flutter valve QID * Incentive spirometer Q1h WA (12) Dyslipidemia: * Chronic. Stable * Continue home vytorin (ezetimibime-simvastatin) and fenofibric acid which needs to be brought in from home (13) GERD without esophagitis: * Chronic. Stable * Continue Protonix 40mg po daily (14) Depression: * Chronic. Stable * Continue Cymbalta 30mg po qAM, Clonazepam qHS (15) Gout, joint: * Chronic. Stable * Continue Allopurinol 100 mg po daily (16) Allergic rhinitis: * Chronic. Stable * Continue Azelastine -- has not received yet * Continue home Marie (17) DVT prophylaxis: * Continue coumadin. INR 2.5 * Repeat INR in AM PT/OT evals pending Dispo: continue diuresis, tamiflu. likely to remain hospitalized additional 2 days. Admission and Anticipated Discharge Date Admission Date: December 23, 2019 Supervising Physician Co-Signing Physician Notes CHRISTY Supervision Note: I did not personally see or examine the patient today, but I verified all flor points of CHRISTY Lance's assessment and plan with the following exceptions/additions: Will consider returning to oral diuretic in the next 24 hours. Subjective Patient states she still feels run down. She believes her breathing is less work today but she has had some productive cough for yellow sputum with initiation of flutter valve. Discussed obtaining xray given crackles and course lung sounds on exam for possible secondary bacterial infection in combination with her flu. Patient states she has been eating and drinking without difficulty and believes she has been putting out increased urine compared to days prior. Denies fever or chills, chest pain, abdominal pain, n/v/d at this time. Reviewed negative CT. Patient states headache improved today with reduction in BP. All questions/concerns addressed. Review of Systems Review of Systems: All systems reviewed & are unremarkable except as noted in HPI & below Physical Exam Physical Exam: Constitutional WD/WN, vitals as above + ill appearing and + obese; no acute distress ENMT mmm top dentures present Neck trachea midline, no thyromegaly Respiratory normal respiratory effort and + cough; no respiratory distress and no labored breathing Auscultation: + crackles (bibasilar), + rhonchi L base and + wheezes (expiratory) Cardiovascular Rate/Rhythm: regular rate/rhythm Heart Sounds: no murmur Extremities: + edema (2+ to knees b/l LE) unable to assess JVD due to patient body habitus Gastrointestinal (Abdomen) normal bowel sounds, soft, nontender, no hepatosplenomegaly Musculoskeletal no cyanosis or clubbing, extremities motor strength 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 Skin no rashes, warm and dry Neurologic PERRL, EOMI, accommodation nl, no face palsy, no dysarthria Psychiatric A+Ox3, euthymic affect Lymphatic no cervical or axillary lymphadenopathy Respiratory: Auscultation: + crackles, + rhonchi (left base) and + wheezes (expiratory) Results & Data ([facility]) Vital Signs (Past 12 Hours) Vital Signs Temp Pulse Pulse Resp BP Pulse Ox 12/25/19 12:51 68 20 96 12/25/19 11:39 36.9 C 12/25/19 11:34 37.0 C 57 L 20 120/65 97 12/25/19 10:37 68 19 96 12/25/19 08:00 61 12/25/19 07:02 68 20 96 12/25/19 06:40 37.6 C H 62 20 159/75 H 99 12/25/19 04:56 77 12/25/19 03:48 66 18 97 12/25/19 03:10 37.5 C 65 20 157/76 H 98 Laboratory Results 12/25/19 12/25/19 12/25/19 Range/Units 11:40 07:37 06:00 WBC 7.01 (4.8-10.8) K/uL RBC 3.67 L (4.2-5.4) M/uL Hgb 10.5 L (12.0-16.0) g/dL Hct 33.5 L (37-47) % MCV 91.3 (80-100) fL MCH 28.6 (25-34) pg MCHC 31.3 L (32-36) g/dL RDW Std Deviation 51.4 H (36.4-46.3) fL RDW Coeff of Melonie 15.4 H (11.5-14.5) % Plt Count 195 (130-400) K/uL MPV 9.7 (7.4-10.4) fL Immature Gran % (Auto) 0.6 % Neut % (Auto) 75.7 % Lymph % (Auto) 9.0 % [place] % (Auto) 14.0 % Eos % (Auto) 0.6 % Baso % (Auto) 0.1 % Immature Gran # (Auto) 0.04 H (0.00-0.02) K/uL Neut # (Auto) 5.31 (1.4-6.5) K/uL Lymph # (Auto) 0.63 L (1.2-3.4) K/uL [place] # (Auto) 0.98 H (0.11-0.59) K/uL Eos # (Auto) 0.04 (0-0.5) K/uL Baso # (Auto) 0.01 (0-0.2) K/uL PT (9.0-12.0) Seconds INR (0.9-1.1) Sodium (136-145) mmol/L Potassium (3.5-5.1) mmol/L Chloride (98-107) mmol/L Carbon Dioxide (21-32) mmol/L Anion Gap (3-11) BUN (7-18) mg/dl Creatinine (0.6-1.2) mg/dl Est Cr Clr Drug Dosing ml/min Est GFR ( Amer) Est GFR (Non-Af Amer) BUN/Creatinine Ratio (10-20) Glucose (70-99) mg/dl POC Glucose 229 H 96 (70-99) mg/dl Calcium (8.5-10.1) mg/dl Magnesium (1.8-2.4) mg/dl Urine Color Urine Appearance (Clear) Urine pH (4.5-7.5) Ur Specific [place] (1.000-1.030) Urine Protein (Negative) Urine Glucose (UA) (Negative) Urine Ketones (Negative) Urine Blood (Negative) Urine Nitrite (Negative) Urine Bilirubin (Negative) Urine Urobilinogen (Negative) Ur Leukocyte Esterase (Negative) Urine WBC (Auto) (0-5) /hpf Urine RBC (Auto) (0-4) /hpf U Hyaline Cast (Auto) (0-5) /lpf U Epithel Cells (Auto) (0-5) /lpf Urine Bacteria (Auto) (Negative) 12/25/19 12/25/19 12/24/19 Range/Units 06:00 06:00 20:17 WBC (4.8-10.8) K/uL RBC (4.2-5.4) M/uL Hgb (12.0-16.0) g/dL Hct (37-47) % MCV (80-100) fL MCH (25-34) pg MCHC (32-36) g/dL RDW Std Deviation (36.4-46.3) fL RDW Coeff of Melonie (11.5-14.5) % Plt Count (130-400) K/uL MPV (7.4-10.4) fL Immature Gran % (Auto) % Neut % (Auto) % Lymph % (Auto) % [place] % (Auto) % Eos % (Auto) % Baso % (Auto) % Immature Gran # (Auto) (0.00-0.02) K/uL Neut # (Auto) (1.4-6.5) K/uL Lymph # (Auto) (1.2-3.4) K/uL [place] # (Auto) (0.11-0.59) K/uL Eos # (Auto) (0-0.5) K/uL Baso # (Auto) (0-0.2) K/uL PT 25.1 H (9.0-12.0) Seconds INR 2.5 H (0.9-1.1) Sodium 142 (136-145) mmol/L Potassium 3.3 L (3.5-5.1) mmol/L Chloride 107 (98-107) mmol/L Carbon Dioxide 31 (21-32) mmol/L Anion Gap 4.0 (3-11) BUN 46 H (7-18) mg/dl Creatinine 2.22 H (0.6-1.2) mg/dl Est Cr Clr Drug Dosing 24.5 ml/min Est GFR ( Amer) 24.2 Est GFR (Non-Af Amer) 20.8 BUN/Creatinine Ratio 20.6 H (10-20) Glucose 103 H (70-99) mg/dl POC Glucose 182 H (70-99) mg/dl Calcium 8.5 (8.5-10.1) mg/dl Magnesium 2.3 (1.8-2.4) mg/dl Urine Color Urine Appearance (Clear) Urine pH (4.5-7.5) Ur Specific [place] (1.000-1.030) Urine Protein (Negative) Urine Glucose (UA) (Negative) Urine Ketones (Negative) Urine Blood (Negative) Urine Nitrite (Negative) Urine Bilirubin (Negative) Urine Urobilinogen (Negative) Ur Leukocyte Esterase (Negative) Urine WBC (Auto) (0-5) /hpf Urine RBC (Auto) (0-4) /hpf U Hyaline Cast (Auto) (0-5) /lpf U Epithel Cells (Auto) (0-5) /lpf Urine Bacteria (Auto) (Negative) 12/24/19 12/24/19 12/24/19 Range/Units 16:50 16:39 13:35 WBC (4.8-10.8) K/uL RBC (4.2-5.4) M/uL Hgb (12.0-16.0) g/dL Hct (37-47) % MCV (80-100) fL MCH (25-34) pg MCHC (32-36) g/dL RDW Std Deviation (36.4-46.3) fL RDW Coeff of Melonie (11.5-14.5) % Plt Count (130-400) K/uL MPV (7.4-10.4) fL Immature Gran % (Auto) % Neut % (Auto) % Lymph % (Auto) % [place] % (Auto) % Eos % (Auto) % Baso % (Auto) % Immature Gran # (Auto) (0.00-0.02) K/uL Neut # (Auto) (1.4-6.5) K/uL Lymph # (Auto) (1.2-3.4) K/uL [place] # (Auto) (0.11-0.59) K/uL Eos # (Auto) (0-0.5) K/uL Baso # (Auto) (0-0.2) K/uL PT (9.0-12.0) Seconds INR (0.9-1.1) Sodium 140 (136-145) mmol/L Potassium 3.8 D (3.5-5.1) mmol/L Chloride 106 (98-107) mmol/L Carbon Dioxide 30 (21-32) mmol/L Anion Gap 4.0 (3-11) BUN 47 H (7-18) mg/dl Creatinine 2.33 H (0.6-1.2) mg/dl Est Cr Clr Drug Dosing 23.5 ml/min Est GFR ( Amer) 22.8 Est GFR (Non-Af Amer) 19.7 BUN/Creatinine Ratio 20.4 H (10-20) Glucose 185 H (70-99) mg/dl POC Glucose 177 H (70-99) mg/dl Calcium 8.7 (8.5-10.1) mg/dl Magnesium (1.8-2.4) mg/dl Urine Color Yellow Urine Appearance Clear (Clear) Urine pH 5.0 (4.5-7.5) Ur Specific [place] 1.015 (1.000-1.030) Urine Protein Trace H (Negative) Urine Glucose (UA) Negative (Negative) Urine Ketones Negative (Negative) Urine Blood Trace H (Negative) Urine Nitrite Negative (Negative) Urine Bilirubin Negative (Negative) Urine Urobilinogen Negative (Negative) Ur Leukocyte Esterase 1+ H (Negative) Urine WBC (Auto) 10-30 H (0-5) /hpf Urine RBC (Auto) 0-4 (0-4) /hpf U Hyaline Cast (Auto) 1-5 (0-5) /lpf U Epithel Cells (Auto) >30 H (0-5) /lpf Urine Bacteria (Auto) Negative (Negative) Diagnostic Findings CXR IMPRESSION: Potential minimal parenchymal infiltrate left base. Study is otherwise similar. PG Care Time/CCT Total # of Minutes Spent Total Time Spent with Patient: Total time spent is greater than 50% in coordination of care (as documented) at patient's floor/unit and/or counseling patient: Coding Level of Care Code 79733 Subseq Hosp Care Lvl 3 Diagnoses Influenza A J10.1 Volume overload E87.70 Paroxysmal A-fib I48.0 CKD (chronic kidney disease), stage IV N18.4 HTN (hypertension) I10 Hypertension type: essential hypertension Diabetes E11.9; Z79.4 Diabetes mellitus complication status: without complication Diabetes mellitus ocean transportation intermediary insulin use: with ocean transportation intermediary use Diabetes mellitus type: type 2 Chronic diastolic (congestive) heart failure I50.32 Obstructive sleep apnea of adult G47.33 Hypothyroidism E03.9 Hypothyroidism type: unspecified Hypokalemia E87.6 Cough R05 Dyslipidemia E78.5 GERD without esophagitis K21.9 Depression F32.9 Active/Remission status: remission status unspecified Depression Type: major depressive disorder Major depression recurrence: unspecified whether recurrent Gout, joint M10.9 Allergic rhinitis J30.9 Allergic rhinitis seasonality: unspecified Allergic rhinitis trigger: unspecified DVT prophylaxis Z29.9 (1) Diabetes Diabetes mellitus complication status: without complication Diabetes mellitus ocean transportation intermediary insulin use: with ocean transportation intermediary use Diabetes mellitus type: type 2 Qualified Code(s): E11.9 - Type 2 diabetes mellitus without complications; Z79.4 - nursing home (current) use of insulin (2) Depression Active/Remission status: remission status unspecified Depression Type: major depressive disorder Major depression recurrence: unspecified whether recurrent Qualified Code(s): F32.9 - Major depressive disorder, single episode, unspecified (3) Hypothyroidism Hypothyroidism type: unspecified Qualified Code(s): E03.9 - Hypothyroidism, unspecified (4) Allergic rhinitis Allergic rhinitis seasonality: unspecified Allergic rhinitis trigger: unspecified Qualified Code(s): J30.9 - Allergic rhinitis, unspecified (5) HTN (hypertension) Hypertension type: essential hypertension Qualified Code(s): I10 - Essential (primary) hypertension
[2019-12-25] MEDS: WARFARIN SOD 2.5 MG TAB PO SCH (16:33)
[2019-12-25] MEDS: METOCLOPRAMIDE HCL 10 MG TABLET PO SCH (16:33)
[2019-12-25 17:32] LABS: BUN Creatinine Ratio 19.2 (10-20); Calcium 8.1 mg/dl (8.5-10.1); Creatinine Clr Calc Pharmacy 21.7 ml/min; Est GFR (African American) 20.8; Potassium 3.8 mmol/L (3.5-5.1)
[2019-12-25] MEDS: clonazePAM 0.5 MG TAB PO SCH (20:26)
[2019-12-25] MEDS: EZETIMIBE/SIMVASTATIN 10/40MG 1 TAB TAB PO SCH (20:26)
[2019-12-26] MEDS: AZELASTINE~ORDER AWAITING ACTION SCH ×3 (00:06→15:26)
[2019-12-26] MEDS: IPRATROPIUM BROMIDE NEB SOLN 0.02% 2.5 ML VIAL INH SCH ×4 (00:45→19:01)
[2019-12-26] MEDS: LEVALBUTEROL HCL 0.63 MG/3 ML NEB NEB SCH ×4 (00:45→19:01)
[2019-12-26] MEDS: LEVOTHYROXINE SODIUM 75 MCG TABLET PO SCH (05:36)
[2019-12-26] MEDS: PANTOprazole 40 MG TAB PO SCH (05:36)
[2019-12-26 06:50] LABS: INR 2.2 (0.9-1.1); Prothrombin Time 22.3 Seconds (9.0-12.0)
[2019-12-26] MEDS: INSULIN ASPART 100 UNITS/ML 3 ML PEN SC SCH ×4 (07:56→20:44)
[2019-12-26] MEDS: DOCUSATE SODIUM 100 MG CAP PO SCH ×4 (07:57→20:19)
[2019-12-26] MEDS: OSELTAMIVIR PHOSPHATE SUSP 30 MG/5 ML UDP PO SCH (07:57)
[2019-12-26] MEDS: INSULIN GLARGINE 100 UNIT/ML VIAL SC SCH ×2 (07:57→20:45)
[2019-12-26] MEDS: allopurinoL 100 MG TAB PO SCH (07:57)
[2019-12-26] MEDS: FEXOFENADINE HCL 180 MG TAB PO SCH (07:58)
[2019-12-26] MEDS: ISOSORBIDE MONO EXTENDED REL 30 MG TABCR PO SCH (07:58)
[2019-12-26] MEDS: METOPROLOL TARTRATE 25 MG TAB PO SCH (07:58)
[2019-12-26] MEDS: DULOXETINE HCL 30 MG CAP PO SCH (07:58)
[2019-12-26] MEDS: CALCITRIOL 0.25 MCG CAPSULE PO SCH (07:58)
[2019-12-26] MEDS: BUMETANIDE 2 MG in SYRINGE 0 ML IV SCH ×2 (07:59→20:21)
[2019-12-26] MEDS: cefTRIAXone SODIUM 2,000 MG in DEXTROSE 5% 50 ML IV SCH (07:59)
[2019-12-26] MEDS: DOXYCYCLINE HYCLATE 100 MG in DEXTROSE 5% 100 ML IV SCH ×2 (07:59→20:25)
[2019-12-26] MEDS: BENZONATATE 100 MG CAPSULE PO SCH ×3 (08:00→20:20)
[2019-12-26 09:23] LABS: BUN Creatinine Ratio 21.7 (10-20); Calcium 8.3 mg/dl (8.5-10.1); Creatinine Clr Calc Pharmacy 23.3 ml/min; Est GFR (African American) 22.8; Est GFR (Non-African American) 19.7; Potassium 3.6 mmol/L (3.5-5.1)
--- NOTE | 2019-12-26 11:47 | Hospitalist Progress Note ---
Date of Service December 26, 2019 Assessment & Plan (1) Influenza A: * Tamiflu 30mg daily per kidney function -- initiated 12/23 * Crackles and wheezing on exam in conjunction with yellow sputum production --> CXR was obtained which revealed potential minimal parenchymal infiltrate left base * Tmax 37.8 12/23 7pm. Afebrile currently * Initiated on ceftriaxone/doxycycline for superinfection -- likely can be transitioned to PO friday * Continue nebs, although changed to levalbuterol instead of albuterol for elevated HR * Continue Flutter valve QID, Incentive spirometer Q1h WA (2) Volume overload: * Patient with CKD, diastolic CHF, HTN, TAMMIE on CPAP presented with increasing weight gain, edema, SOB and cough despite outpatient diuretic regimen of bumex 2mg PO BID. ER provider spoke with Dr. Mckay who suggested Bumex 2mg IV BID for diuresis. Also +Flu A * Weight currently 101.1kg (previously 98.2kg on 12/09). Wt on admit 106.8kg * Daily weights, strict I&O * Continue Bumex 2mg IV BID * Spironolactone on hold as directed by Nephrology * ECHO nov 2019 with mild LVH, grade I diastolic dysfunction, EF 55-60%, mild AR * Placed on low sodium diet with fluid restriction (3) Paroxysmal A-fib: * On coumadin. INR 2.2 * Follow INR -- expect increase given initiation of abx * Continue coumadin 2.5mg PO T/W/F/S/Sun and 5mg PO M * Has been SR with 1st degree AV block on monitor but did have period of time up to 130s with what appears to be MAT on 12/23 * Will decrease metoprolol back to 25mg QAM as patient has been amanda * Continue to monitor (4) CKD (chronic kidney disease), stage IV: * Patient with CKD --> BUN=53, Cr=2.25 on admission (BUN was 90/71 and Cr 3.32/2.7 at the end of November with increasing dose of Bumex) * Cr bumped to 2.51 last evening, but stable on morning labs at 2.33 (baseline 2.3-2.5) * Continue Calcitriol 0.25mg PO daily * Avoid nephrotoxic agents * Renally dose medications when possible * Monitor BMP (5) HTN (hypertension): * Chronic. * Continue home isosorbide mononitrate 90mg * Metoprolol 25mg daily as above * BP 143/63 * Continue to monitor (6) Diabetes: * Chronic. Most recent A1c 8.8 in November 2019 * Continue basal glargine 64 units BID * ISS with CF 15, CR 7, Goal 100-140 * BSGs 89-205 over last 24 hours (7) Chronic diastolic (congestive) heart failure: * Chronic. ECHO nov 2019 with diastolic dysfunction grade I , EF 55-60%, mild AR, mild LVH * Continue good blood pressure control-increased home metoprolol to 25mg bid as above but now go back down to once daily for bradycardia (8) Obstructive sleep apnea of adult: * Chronic. Patient reports compliance with home CPAP. Present in room * Continue CPAP qHS (9) Hypothyroidism: * Chronic. Stable. TSH 2.24 * Continue home levothyroxine 75mcg daily (10) Hypokalemia: * K 3.3 - given 20meq -- cautious in patient with CKD * K 3.6 on repeat * Monitor in AM given continued bumex (11) Cough: * Secondary to influenza/volume overload/possible pneumonia * Without improvement with Tessalon pearls * Ordered dextromethorphan/guaifenesin --> much improved today * DuoNeb Q4prn * Flutter valve QID * Incentive spirometer Q1h WA (12) Dyslipidemia: * Chronic. Stable * Continue home vytorin (ezetimibime-simvastatin) and fenofibric acid which needs to be brought in from home (13) GERD without esophagitis: * Chronic. Stable * Continue Protonix 40mg po daily (14) Depression: * Chronic. Stable * Continue Cymbalta 30mg po qAM, Clonazepam qHS (15) Gout, joint: * Chronic. Stable * Continue Allopurinol 100 mg po daily (16) Allergic rhinitis: * Chronic. Stable * Continue Azelastine -- has not received yet * Continue home Marie (17) DVT prophylaxis: * Continue coumadin. INR 2.2 * Repeat INR in AM PT/OT evals --> rec home health. Will consult CM Dispo: continue diuresis, tamiflu. possible discharge friday or friday Admission and Anticipated Discharge Date Admission Date: December 25, 2019 Supervising Physician Co-Signing Physician Notes PA Supervision Note: I did not personally see or examine the patient today, but I verified all flor points of CHRISTY Lance's assessment and plan with the following exceptions/additions: Will consider returning to oral diuretic likely tomorrow Subjective Patient states she is feeling much better today. Cough with much improvement. Still with yellow sputum, however quantity has decreased as well as coughing fits. Discussed going back on home metoprolol dosing now that her HR has been on the lower end. Patient states she has continued to make good urine output however states she has not had a bowel movement in ~2 days and she takes a softener and laxative at home. Discussed that we will add miralax to see if this helps first and can increase as needed. Patient denies abdominal pain at this time. Denies fevers or chills, chest pain, n/v/d, dysuria at this time. Hopeful for discharge, possibly with home gumaro, friday or friday. All questions/concerns addressed. Review of Systems Review of Systems: All systems reviewed & are unremarkable except as noted in HPI & below Physical Exam Physical Exam: Constitutional WD/WN, vitals as above + obese; no acute distress ENMT mmm top dentures present Neck trachea midline, no thyromegaly Respiratory normal respiratory effort; no respiratory distress and no labored breathing Auscultation: + crackles (bibasilar), + wheezes (expiratory, improved) Cardiovascular Rate/Rhythm: regular rate/rhythm Heart Sounds: no murmur Extremities: + edema (1+ to knees b/l LE) unable to assess JVD due to patient body habitus Gastrointestinal (Abdomen) normal bowel sounds, soft, nontender, distended, no hepatosplenomegaly Musculoskeletal no cyanosis or clubbing, extremities motor strength 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 Skin no rashes, warm and dry Neurologic PERRL, EOMI, accommodation nl, no face palsy, no dysarthria Psychiatric A+Ox3, euthymic affect Lymphatic no cervical or axillary lymphadenopathy Results & Data ([facility]) Vital Signs (Past 12 Hours) Vital Signs Temp Pulse Pulse Resp BP BP Pulse Ox 12/26/19 11:29 37.2 C 59 L 22 143/63 H 95 03/15/20 08:13 95 12/26/19 07:39 60 12/26/19 07:24 37.4 C 77 20 131/80 97 12/26/19 07:05 77 20 97 12/26/19 04:20 36.5 C 63 20 134/68 97 12/26/19 03:31 57 L 18 94 12/26/19 01:54 57 L 12/26/19 00:48 56 L 18 95 12/26/19 00:47 56 L 18 95 12/26/19 00:09 37.4 C 60 20 148/72 H 99 Laboratory Results 12/26/19 12/26/19 12/26/19 Range/Units 11:28 07:28 05:29 PT (9.0-12.0) Seconds INR (0.9-1.1) Sodium 142 (136-145) mmol/L Potassium 3.6 (3.5-5.1) mmol/L Chloride 106 (98-107) mmol/L Carbon Dioxide 31 (21-32) mmol/L Anion Gap 5.0 (3-11) BUN 51 H (7-18) mg/dl Creatinine 2.33 H (0.6-1.2) mg/dl Est Cr Clr Drug Dosing 23.3 ml/min Est GFR ( Amer) 22.8 Est GFR (Non-Af Amer) 19.7 BUN/Creatinine Ratio 21.7 H (10-20) Glucose 97 (70-99) mg/dl POC Glucose 205 H 89 (70-99) mg/dl Calcium 8.3 L (8.5-10.1) mg/dl 12/26/19 12/25/19 12/25/19 Range/Units 05:21 20:30 16:45 PT 22.3 H (9.0-12.0) Seconds INR 2.2 H (0.9-1.1) Sodium 141 (136-145) mmol/L Potassium 3.8 D (3.5-5.1) mmol/L Chloride 106 (98-107) mmol/L Carbon Dioxide 30 (21-32) mmol/L Anion Gap 6.0 (3-11) BUN 48 H (7-18) mg/dl Creatinine 2.51 H (0.6-1.2) mg/dl Est Cr Clr Drug Dosing 21.7 ml/min Est GFR ( Amer) 20.8 Est GFR (Non-Af Amer) 18.0 BUN/Creatinine Ratio 19.2 (10-20) Glucose 160 H (70-99) mg/dl POC Glucose 145 H (70-99) mg/dl Calcium 8.1 L (8.5-10.1) mg/dl 12/25/19 Range/Units 16:40 PT (9.0-12.0) Seconds INR (0.9-1.1) Sodium (136-145) mmol/L Potassium (3.5-5.1) mmol/L Chloride (98-107) mmol/L Carbon Dioxide (21-32) mmol/L Anion Gap (3-11) BUN (7-18) mg/dl Creatinine (0.6-1.2) mg/dl Est Cr Clr Drug Dosing ml/min Est GFR ( Amer) Est GFR (Non-Af Amer) BUN/Creatinine Ratio (10-20) Glucose (70-99) mg/dl POC Glucose 158 H (70-99) mg/dl Calcium (8.5-10.1) mg/dl PG Care Time/CCT Total # of Minutes Spent Total Time Spent with Patient: Total time spent is greater than 50% in coordination of care (as documented) at patient's floor/unit and/or counseling patient: Coding Level of Care Code 99480 Subseq Hosp Care Lvl 3 Diagnoses Influenza A J10.1 Volume overload E87.70 Paroxysmal A-fib I48.0 CKD (chronic kidney disease), stage IV N18.4 HTN (hypertension) I10 Hypertension type: essential hypertension Diabetes E11.9; Z79.4 Diabetes mellitus complication status: without complication Diabetes mellitus buttermaker helper insulin use: with buttermaker helper use Diabetes mellitus type: type 2 Chronic diastolic (congestive) heart failure I50.32 Obstructive sleep apnea of adult G47.33 Hypothyroidism E03.9 Hypothyroidism type: unspecified Hypokalemia E87.6 Cough R05 Dyslipidemia E78.5 GERD without esophagitis K21.9 Depression F32.9 Active/Remission status: remission status unspecified Depression Type: major depressive disorder Major depression recurrence: unspecified whether recurrent Gout, joint M10.9 Allergic rhinitis J30.9 Allergic rhinitis seasonality: unspecified Allergic rhinitis trigger: unspecified DVT prophylaxis Z29.9 (1) Diabetes Diabetes mellitus complication status: without complication Diabetes mellitus buttermaker helper insulin use: with buttermaker helper use Diabetes mellitus type: type 2 Qualified Code(s): E11.9 - Type 2 diabetes mellitus without complications; Z79.4 - jail (current) use of insulin (2) Depression Active/Remission status: remission status unspecified Depression Type: major depressive disorder Major depression recurrence: unspecified whether recurrent Qualified Code(s): F32.9 - Major depressive disorder, single episode, unsp ecified (3) Hypothyroidism Hypothyroidism type: unspecified Qualified Code(s): E03.9 - Hypothyroidism, unspecified (4) Allergic rhinitis Allergic rhinitis seasonality: unspecified Allergic rhinitis trigger: unspecified Qualified Code(s): J30.9 - Allergic rhinitis, unspecified (5) HTN (hypertension) Hypertension type: essential hypertension Qualified Code(s): I10 - Essential (primary) hypertension
[2019-12-26] MEDS: POLYETHYLENE (MIRALAX) 17 GM PACK PO SCH (12:24)
[2019-12-26] MEDS: METOCLOPRAMIDE HCL 10 MG TABLET PO SCH (16:58)
[2019-12-26] MEDS: WARFARIN SOD 2.5 MG TAB PO SCH (16:58)
[2019-12-26] MEDS: EZETIMIBE/SIMVASTATIN 10/40MG 1 TAB TAB PO SCH (20:20)
[2019-12-26] MEDS: clonazePAM 0.5 MG TAB PO SCH (20:20)
[2019-12-27] MEDS: LEVALBUTEROL HCL 0.63 MG/3 ML NEB NEB SCH ×4 (00:31→20:13)
[2019-12-27] MEDS: IPRATROPIUM BROMIDE NEB SOLN 0.02% 2.5 ML VIAL INH SCH ×4 (00:31→20:13)
[2019-12-27] MEDS: AZELASTINE~ORDER AWAITING ACTION SCH ×2 (00:48→07:16)
[2019-12-27] MEDS: PANTOprazole 40 MG TAB PO SCH (05:43)
[2019-12-27] MEDS: LEVOTHYROXINE SODIUM 75 MCG TABLET PO SCH (05:43)
[2019-12-27 06:40] LABS: Basophils # (auto) 0.01 K/uL (0-0.2); Basophils % (auto) 0.2 %; Eosinophils # (auto) 0.14 K/uL (0-0.5); Eosinophils % (auto) 3.5 %; Hematocrit (blood only) 33.2 % (37-47); Hemoglobin 10.3 g/dL (12.0-16.0); Immature Granulocytes # (auto) 0.02 K/uL (0.00-0.02); Immature Granulocytes % (auto) 0.5 %; Lymphocytes # (auto) 0.84 K/uL (1.2-3.4); Lymphocytes % (auto) 20.7 %; Mean Corpuscular Hemoglobin 28.2 pg (25-34); Mean Platelet Volume 9.5 fL (7.4-10.4); Monocytes # (auto) 0.48 K/uL (0.11-0.59); Monocytes % (auto) 11.9 %; Neutrophils # (auto) 2.56 K/uL (1.4-6.5); Neutrophils % (auto) 63.2 %; Platelet Count 171 K/uL (130-400); RDW Coefficient of Variation 15.3 % (11.5-14.5); RDW Standard Deviation 51.7 fL (36.4-46.3); Red Blood Count 3.65 M/uL (4.2-5.4); White Blood Count 4.05 K/uL (4.8-10.8)
[2019-12-27 06:47] LABS: INR 2.1 (0.9-1.1); Prothrombin Time 21.4 Seconds (9.0-12.0)
[2019-12-27 07:09] LABS: BUN Creatinine Ratio 21.5 (10-20); Est GFR (African American) 26.8; Est GFR (Non-African American) 23.1; Potassium 3.3 mmol/L (3.5-5.1)
[2019-12-27] MEDS: CARBOHYDRATES FOR HYPOGLYCEMIA PO PRN ×2 (07:34→07:50)
[2019-12-27] MEDS: BUMETANIDE 2 MG in SYRINGE 0 ML IV SCH ×2 (08:06→16:53)
[2019-12-27] MEDS: DOXYCYCLINE HYCLATE 100 MG in DEXTROSE 5% 100 ML IV SCH (08:06)
[2019-12-27] MEDS: INSULIN ASPART 100 UNITS/ML 3 ML PEN SC SCH ×4 (08:06→20:52)
[2019-12-27] MEDS: cefTRIAXone SODIUM 2,000 MG in DEXTROSE 5% 50 ML IV SCH (08:07)
[2019-12-27] MEDS: BENZONATATE 100 MG CAPSULE PO SCH ×3 (08:07→20:53)
[2019-12-27] MEDS: OSELTAMIVIR PHOSPHATE SUSP 30 MG/5 ML UDP PO SCH (08:07)
[2019-12-27] MEDS: DULOXETINE HCL 30 MG CAP PO SCH (08:07)
[2019-12-27] MEDS: DOCUSATE SODIUM 100 MG CAP PO SCH ×4 (08:07→20:55)
[2019-12-27] MEDS: FEXOFENADINE HCL 180 MG TAB PO SCH (08:08)
[2019-12-27] MEDS: CALCITRIOL 0.25 MCG CAPSULE PO SCH (08:08)
[2019-12-27] MEDS: METOPROLOL TARTRATE 25 MG TAB PO SCH (08:08)
[2019-12-27] MEDS: POLYETHYLENE (MIRALAX) 17 GM PACK PO SCH (08:08)
[2019-12-27] MEDS: allopurinoL 100 MG TAB PO SCH (08:08)
[2019-12-27] MEDS: ISOSORBIDE MONO EXTENDED REL 30 MG TABCR PO SCH (08:08)
[2019-12-27] MEDS ORDERED: PHARMACY GLYCEMIC MGMT CONSULT PRN (08:25)
[2019-12-27] MEDS ORDERED: POTASSIUM CHLORIDE 20 MEQ TABCR PO ONE (08:30)
[2019-12-27] MEDS ORDERED: SPIRONOLACTONE 25 MG TAB PO SCH (09:00)
--- NOTE | 2019-12-27 12:27 | Pharmacy Report ---
Glycemic Control Consultation - Date of Service December 27, 2019 - Scope Scope: Glycemic Pharmacist consulted for glycemic control and to write orders per [facility] inpatient glycemic control protocol. - Objective Weight: 103.6 kg Accuchecks BSG (last 24hrs): 12/26/19 12/26/19 12/27/19 16:20 20:39 05:55 Glucose 59 L POC Glucose 161 H 133 H 12/27/19 12/27/19 12/27/19 07:34 07:43 08:05 Glucose POC Glucose 51 L* 55 L* 77 12/27/19 11:11 Glucose POC Glucose 161 H Laboratory Data (last 24hrs): 12/27/19 05:55 Potassium 3.3 L Carbon Dioxide 29 Anion Gap 6.0 Creatinine 2.04 H Est Cr Clr Drug Dosing 27.0 - Recent Pertinent Medications Outpatient Anti-diabetic Regimen: * Basaglar 64 units BID * Novolog 14 with breakfast, 18 with lunch, and 14 with dinner + scale * A1c = 8.8 % 11/20/2019 The patient is currently receiving: * Basal insulin: Lantus 64 units every 12 hours * Correctional Insulin: Novolog Correction per scale ACHS Goal Range: Low 100 mg/dL - High 150 mg/dL Correction Factor: 15 mg/dL/unit * Prandial insulin: Per carb ratio of 1 unit per 7 grams CHO consumed Risk Factors for Insulin Resistance: * Infection: pulmonary infection on Rocephin and doxycycline * Diet: T2DM - Assessment & Plan Assessment & Plan: ASSESSMENT: * Ms Baer is a 74 y/o F with a PMH of T2DM who presented with flu and pneumonia. Patient currently receiving antibiotics. * On 12/24 - patient received 158 units of insulin (128 units of basal and 30 units of bolus) with BSGs ranging from 96-229 mg/dL. On 12/25- patient received 160 units of insulin (128 units of basal and 32 units of bolus) with BSGs ranging from 89-205 mg/dL. * Fasting today was 51 mg/dL. Reduce Lantus to 30 units BID - 50% reduction to Lantus dosing that has worked previously. * Tweak Novolog to previous dosing. Patient's BSGs typically well controlled with speak at lunch due to loss of carbohydrate coverage with lower fastings. PLAN FOR INPATIENT GLYCEMIC CONTROL: * Basal insulin * Lantus 30 units SQ BID * Bolus insulin * NovoLog per scale ACHS or Q6hrs while NPO * Goal Range: Low 110 mg/dL - High 140 mg/dL * Correction Factor: 20 mg/dL/unit * Nutritional / Prandial insulin per carb ratio of 1 unit per 7 grams CHO consumed * Please note that the plan above was derived based on current level of insulin resistance and hospital stress. These recommendations are appropriate for inpatient admission only. Plan of care upon discharge will need to be reassessed to avoid potential outpatient hypo/hyperglycemia. Thank you.
--- NOTE | 2019-12-27 13:11 | Hospitalist Progress Note ---
Date of Service December 27, 2019 Assessment & Plan (1) Influenza A: Tamiflu 30mg daily per kidney function -- initiated 12/23 Noted wheezing previously on exam and improvement on nebulizers however given worse outcomes with steroids. Continue nebs PRN. Procalcitonin negative. CXR today with no infiltrate. Will d/c ceftriaxone as no real indication for antibiotics but given initial concern will complete doxycycline course for atypical coverage for short 5 day course as no procalcitonin taken on admission. Continue Flutter valve QID, Incentive spirometer Q1H WA (2) Volume overload: Patient with CKD, diastolic CHF, HTN, TAMMIE on CPAP presented with increasing weight gain, edema, SOB and cough despite outpatient diuretic regimen of bumex 2mg PO BID (+ additional doses taken by patient). Possible pulmonary edema just related to current influenza diagnosis. Weight fluctuating on IV bumex 2mg BID with Cr continuing to decrease, this is actually a decrease from her outpatient regimen. I am unclear regarding this diagnosis therefore will consult her outpatient radio station audio engineer for help with managing her fluid status. I suspect she can be discharged on usual bumex 2mg BID PO dosing. Patient is on room air. (3) Paroxysmal A-fib: On warfarin. INR 2.1. Will continue regular dosing of warfarin as she usually has an increased dose today. Continue warfarin 2.5mg PO T/W/F/S/Sun and 5mg PO M. Continues to have SR on telemetry with 1st degree AV block but did have period of time up to 130s with what appears to be MAT on 12/23. Decreased metoprolol back to 25mg QAM as patient has been amanda. Continue to monitor. (4) CKD (chronic kidney disease), stage IV: Patient with CKD. Worse recently with increasing doses of bumex and spironolactone. Spironolactone d/c by her radio station audio engineer and Cr improving since. Actually on reduced diuretics here as she was taking addition doses of bumex at home due to concern for increasing weight which I suspect is not a good marker of her overall fluid status. Cr improved to 2.04 with current IV dosing of bumex. Will continue current dosing for now and consult her outpatient radio station audio engineer for further management as suspect she was dry and actually has improved on reduced bumex dosing. Continue Calcitriol 0.25mg PO daily. Avoid nephrotoxic agents. Renally dose medications when possible. Monitor BMP. (5) HTN (hypertension): Chronic. Continue home isosorbide mononitrate 90mg Metoprolol 25mg daily (6) Diabetes: Chronic. Most HbA1c 8.8 in November 2019 Hypoglycemic this morning 59 Will consult pharmacy for further glycemic control (7) Chronic diastolic (congestive) heart failure: Chronic. ECHO nov 2019 with diastolic dysfunction grade I , EF 55-60%, mild AR, mild LVH Suspect fluid balance problem more due to CKD than heart failure. (8) Obstructive sleep apnea of adult: Patient reports compliance with home CPAP. Continue CPAP qHS (9) Hypothyroidism: Chronic. Stable. TSH 2.24 Continue home levothyroxine 75mcg daily (10) Hypokalemia: Secondary to loop diuretic use. Monitor daily and replace as necessary (11) Cough: Secondary to influenza/volume overload/possible pneumonia Without improvement with Tessalon pearls Ordered dextromethorphan/guaifenesin --> much improved today DuoNeb Q4prn Flutter valve QID (12) Dyslipidemia: Chronic. Stable Continue home Vytorin (ezetimibe-simvastatin). Will d/c fibrate while admitted as not on formulary and not receiving here. (13) GERD without esophagitis: Chronic. Stable Continue Protonix 40mg po daily (14) Depression: Chronic. Stable Continue Cymbalta 30mg po QAM, Clonazepam qHS (15) Gout, joint: Chronic. No acute flare at this time. Continue Allopurinol 100 mg po daily (16) Allergic rhinitis: Chronic. Stable Will d/c home med Azelastine as not on formulary here and no recurrence in symptoms Continue home Marie (17) DVT prophylaxis: INR therapeutic 2.1 PT/OT evals --> rec home health. Admission and Anticipated Discharge Date Admission Date: December 25, 2019 Subjective Patient reports weight increasinging therefore concerned about discharge at this time. Continues to feel short of breath and not back to her baseline. No chest pain. Non-productive cough improving. Review of Systems Review of Systems: All systems reviewed & are unremarkable except as noted in HPI & below Physical Exam Constitutional: well developed and + morbidly obese; + not well nourished and no acute distress Eyes: + anicteric sclerae; normal pupil size ENMT: external ear and nose normal, oropharynx normal Neck: trachea midline Respiratory: normal respiratory effort; no respiratory distress, no labored breathing, does not use accessory muscles and no cough Auscultation: + diminished lung sounds (bibasal) and + crackles (bibasal); no rhonchi and no wheezes Cardiovascular: Rate/Rhythm: regular rate and regular rhythm Heart Sounds: no murmur Extremities: + edema (2+ to knees b/l LE) Gastrointestinal (Abdomen): normal bowel sounds, soft, nontender, no hepatosplenomegaly Musculoskeletal: no cyanosis or clubbing, extremities motor strength 5/5 Skin: no rashes, warm and dry Neurologic: moves all extremities and awake; no focal motor deficits and not confused Speech / Cognition: normal speech Motor/Sensory: no tremor Psychiatric: A+Ox3, euthymic affect Lymphatic: no cervical or axillary lymphadenopathy Results & Data ([facility]) Vital Signs (Past 12 Hours) Vital Signs Temp Pulse Pulse Resp BP Pulse Ox 12/27/19 10:58 36.9 C 60 19 136/70 94 12/27/19 08:00 61 12/27/19 07:06 60 18 98 12/27/19 07:04 36.9 C 60 18 136/55 L 97 12/27/19 04:18 61 18 94 12/27/19 04:00 36.7 C 63 19 139/72 91 PG Care Time/CCT Total # of Minutes Spent Total Time Spent with Patient: Total time spent is greater than 50% in coordination of care (as documented) at patient's floor/unit and/or counseling patient: Coding Level of Care Code 40750 Subseq Hosp Care Lvl 3 Diagnoses Influenza A J10.1 Volume overload E87.70 Hypervolemia type: unspecified Paroxysmal A-fib I48.0 CKD (chronic kidney disease), stage IV N18.4 HTN (hypertension) I10 Hypertension type: essential hypertension Diabetes E11.9; Z79.4 Diabetes mellitus type: type 2 Diabetes mellitus prison insulin use: with termite treater helper use Diabetes mellitus complication status: without complication Chronic diastolic (congestive) heart failure I50.32 Obstructive sleep apnea of adult G47.33 Hypothyroidism E03.9 Hypothyroidism type: unspecified Hypokalemia E87.6 Cough R05 Dyslipidemia E78.5 GERD without esophagitis K21.9 Depression F32.9 Depression Type: major depressive disorder Major depression recurrence: unspecified whether recurrent Active/Remission status: remission status unspecified Gout, joint M10.9 Allergic rhinitis J30.9 Allergic rhinitis trigger: unspecified Allergic rhinitis seasonality: unspecified DVT prophylaxis Z29.9 (1) Volume overload Hypervolemia type: unspecified Qualified Code(s): E87.70 - Fluid overload, unspecified (2) HTN (hypertension) Hypertension type: essential hypertension Qualified Code(s): I10 - Essential (primary) hypertension (3) Diabetes Diabetes mellitus type: type 2 Diabetes mellitus termite treater helper insulin use: with prison use Diabetes mellitus complication status: without complication Qualified Code(s): E11.9 - Type 2 diabetes mellitus without complications; Z79.4 - moth exterminator (current) use of insulin (4) Hypothyroidism Hypothyroidism type: unspecified Qualified Code(s): E03.9 - Hypothyroidism, unspecified (5) Depression Depression Type: major depressive disorder Major depression recurrence: unspecified whether recurrent Active/Remission status: remission status unspecified Qualified Code(s): F32.9 - Major depressive disorder, single episode, unspecified (6) Allergic rhinitis Allergic rhinitis trigger: unspecified Allergic rhinitis seasonality: unspecified Qualified Code(s): J30.9 - Allergic rhinitis, unspecified
--- NOTE | 2019-12-27 14:10 | XRay Report ---
XR chest 1V portable CLINICAL HISTORY: pulmonary edema, SOB, hypoxia COMPARISON STUDY: 12/25/2019 FINDINGS: The heart remains enlarged. There is mild central vascular prominence without evidence of o vert failure. There is no focal pulmonary consolidation. There are no pleural effusions.[ IMPRESSION: Cardiomegaly. No evidence of focal pulmonary consolidation. No evidence of overt failure. ACT 112: Negative or not required by law. Electronically signed by: Arnulfo Reeves M.D. 12/27/2019 2:09 PM
[2019-12-27] MEDS: INSULIN GLARGINE SOLOSTAR 100 UNITS/ML 3 ML PEN SC SCH ×2 (14:15→20:51)
[2019-12-27] MEDS: METOCLOPRAMIDE HCL 10 MG TABLET PO SCH (16:53)
[2019-12-27] MEDS ORDERED: BUMETANIDE 1 MG TAB PO SCH (17:00)
[2019-12-27] MEDS: WARFARIN SOD 5 MG TAB PO SCH (17:05)
[2019-12-27] MEDS: clonazePAM 0.5 MG TAB PO SCH (20:52)
[2019-12-27] MEDS: EZETIMIBE/SIMVASTATIN 10/40MG 1 TAB TAB PO SCH (20:53)
[2019-12-27] MEDS: DOXYCYCLINE HYCLATE 100 MG CAP PO SCH (20:54)
[2019-12-28] MEDS: LEVALBUTEROL HCL 0.63 MG/3 ML NEB NEB SCH ×4 (00:40→19:33)
[2019-12-28] MEDS: IPRATROPIUM BROMIDE NEB SOLN 0.02% 2.5 ML VIAL INH SCH ×4 (00:40→19:33)
[2019-12-28] MEDS: LEVOTHYROXINE SODIUM 75 MCG TABLET PO SCH (06:03)
[2019-12-28] MEDS: PANTOprazole 40 MG TAB PO SCH (06:03)
[2019-12-28 08:03] LABS: Prothrombin Time 20.8 Seconds (9.0-12.0)
[2019-12-28 08:33] LABS: BUN Creatinine Ratio 25.7 (10-20); Calcium 8.7 mg/dl (8.5-10.1); Creatinine Clr Calc Pharmacy 30.3 ml/min; Est GFR (African American) 30.5; Est GFR (Non-African American) 26.3; Potassium 4.1 mmol/L (3.5-5.1)
[2019-12-28] MEDS: INSULIN GLARGINE SOLOSTAR 100 UNITS/ML 3 ML PEN SC SCH (08:50)
[2019-12-28] MEDS: METOPROLOL TARTRATE 25 MG TAB PO SCH (08:52)
[2019-12-28] MEDS: INSULIN ASPART 100 UNITS/ML 3 ML PEN SC SCH ×4 (08:52→22:41)
[2019-12-28] MEDS: FEXOFENADINE HCL 180 MG TAB PO SCH (08:53)
[2019-12-28] MEDS: ISOSORBIDE MONO EXTENDED REL 30 MG TABCR PO SCH (08:53)
[2019-12-28] MEDS: allopurinoL 100 MG TAB PO SCH (08:53)
[2019-12-28] MEDS: CALCITRIOL 0.25 MCG CAPSULE PO SCH (08:53)
[2019-12-28] MEDS: BENZONATATE 100 MG CAPSULE PO SCH ×3 (08:53→21:10)
[2019-12-28] MEDS: DULOXETINE HCL 30 MG CAP PO SCH (08:54)
[2019-12-28] MEDS: DOXYCYCLINE HYCLATE 100 MG CAP PO SCH ×2 (08:54→21:10)
--- NOTE | 2019-12-28 10:10 | Nephrology Consultation ---
Date of Consultation December 28, 2019 Assessment & Plan (1) Influenza A: Tamiflu appropriately dosed for kidney function. (2) Acute renal failure: Consistent with acute on chronic CRS. Creatinine improved to baseline. Adequate urine output. Continue to hold aldactone. Bumex to encourage a slightly negative fluid balance. Continue Bumex 2 mg PO BID. Monitor metabolic profile regularly. Document strict I/O's. Daily weights. Medications appropriately dosed for kidney function. Electrolytes appropritae. (3) Paroxysmal A-fib: Anticoagulated with warfarin. (4) CKD (chronic kidney disease), stage IV: Creatinine returned to baseline. Close outpatient follow up post discharge. No emergent indication for dialysis at this time. History of Present Illness Reason for Consultation: SABINO/CKD Requesting Physician: Eligio Valencia MD Attending Physician: Eligio Valencia MD History of Present Illness Ms. Beverley Baer is a 74 year-old female with morbid obesity, diastolic CHF, diabetes mellitus II, hypertension, coronary artery disease, paroxysmal atrial fibrillation, asthma, and chronic kidney disease. Beverley has CKD class IV-V a baseline creatinine of 1.8-2.5 mg/dL. I recently saw Beverley in the clinic at the end of November. Spironolactone was subsequently discontinued. Beverley was admitted to [facility] on 12/22. She presented with significant weight gain and dyspnea. She was taking Bumex 2 mg BID + an additional 1-2 mg for fluid retention at home. She has diuresed with Bumex 2 mg twice daily during her hospitalization. Creatinine has improved to 1.8 mg/dL. Electrolytes are appropriate. Beverley feels well today. She was found to be positive for Influenza A on admission. She is being treated with Tamiflu. She is feeling significantly improved. Unfortunately, her weight has been increasing over the past few days (101 to 104.5 kg). I/O's are not congruent. Beverley was admitted to [facility] from 11/19-11/25 with gastroenteritis. She presented to the ER with nausea, vomiting, and diarrhea. IV saline was provided. Symptoms improved with supportive care. Creatinine improved to 2.0 mg/dL at discharge. Bumex and spironolactone were held but restarted post discharge. She was diagnosed with a UTI, Cx + E coli during the hospitalization. Beverley completed a course of Bactrim for treatment. Redd was admitted to [facility] from March 20-2017. She had osteomyelitis of the toe. Treated with extended course of cipro and Keflex. During her hospitalization, she developed SABINO. The patient was found to be volume contracted. Bumex was held a the time of discharge. It was restarted at 2 mg daily a few days later. Beverley developed significant edema. Weight increased. Bumex was increased to 2 mg twice daily. Beverley completed Daptiv education. She is interested in in-centre HD if indicated. Allergies Allergy/AdvReac Type Severity Reaction Status Date / Time clarithromycin Allergy Intermediate RASH AND Verified 12/23/19 16:56 ITCHING Home Medications Home Medications Medication Instructions Recorded Confirmed Type nitroglycerin [Nitrostat] 0.4 mg UT UD PRN #0 09/28/09 12/23/19 History spironolactone [Aldactone] 0 mg PO BID #0 09/28/09 12/23/19 History ezetimibe-simvastatin [Vytorin 1 tab PO HS #0 12/08/15 12/23/19 History 10-40] cranberry fruit concentrate 250 mg 500 mg PO QDL tab 08/20/18 12/23/19 History chewable tablet betamethasone dipropionate 0.05 % 1 appln TOPICAL UD PRN gm 05/10/19 12/23/19 History topical cream docusate sodium 100 mg capsule 100 mg PO QID cap 05/10/19 12/23/19 History fexofenadine 180 mg tablet 180 mg PO QAM tab 05/10/19 12/23/19 History lancets 33 gauge #100 ea 05/10/19 12/09/19 History terconazole 0.4 % vaginal cream 1 appl PV Q2D PRN gm 08/16/19 12/23/19 History blood sugar diagnostic #400 ea 09/07/19 12/09/19 Rx bumetanide 2 mg tablet 2 mg PO BID 90 Days #180 tab 10/07/19 12/23/19 Rx azelastine 137 mcg (0.1 %) nasal 2 sprays INTNAS BID #90 ml 10/28/19 12/23/19 Rx spray aerosol ergocalciferol (vitamin D2) 50,000 unit PO UD 11/19/19 12/23/19 History isosorbide mononitrate 90 mg PO QAM 11/19/19 12/23/19 History Basaglar KwikPen U-100 Insulin 100 64 unit SC BID #45 ml NS 11/30/19 12/23/19 Rx unit/mL (3 mL) subcutaneous warfarin 5 mg tablet 2.5 mg PO [id number] 12/02/19 12/23/19 History pen needle, diabetic 31 gauge x #500 ea 12/22/19 Rx 12/26" allopurinol [Zyloprim] 100 mg PO QAM 12/23/19 12/23/19 History calcitriol [Rocaltrol] 0.25 mcg PO DAILY 12/23/19 12/23/19 History clonazepam [Klonopin] 0.5 mg PO HS 12/23/19 12/23/19 History duloxetine [Cymbalta] 30 mg PO QAM 12/23/19 12/23/19 History fenofibric acid (choline) 135 mg PO QAM 12/23/19 12/23/19 History [Trilipix] insulin aspart U-100 [Novolog 0 unit SUBCUT HS 12/23/19 12/23/19 History Flexpen U-100 Insulin] insulin aspart U-100 [Novolog 14 unit SUBCUT QDD 12/23/19 12/23/19 History Flexpen U-100 Insulin] insulin aspart U-100 [Novolog 14 units SUBCUT QDB 12/23/19 12/23/19 History Flexpen U-100 Insulin] insulin aspart U-100 [Novolog 18 unit SUBCUT QDL 12/23/19 12/23/19 History Flexpen U-100 Insulin] levothyroxine [Synthroid] 75 mcg PO DAILYBB 12/23/19 12/23/19 History metoclopramide HCl [Reglan] 10 mg PO QDD 12/23/19 12/23/19 History metoprolol tartrate 25 mg PO QAM 12/23/19 12/23/19 History pantoprazole [Protonix] 40 mg PO DAILYBB 12/23/19 12/23/19 History potassium chloride [Klor-Con M20] 20 meq PO QAM 12/23/19 12/23/19 History warfarin [Coumadin] 5 mg PO MOTH 12/23/19 12/23/19 History Patient History Social History Preferred Language: Mosotho Communication Ability: Effective Visual Impairment: Limited Hearing Ability: Normal Natural Gas Engineer Required: No Beliefs That Will Affect Care: None marital status: Single Current Living Situation: Alone current occupational status: retired Other Information That Helps Us Care for You: No Feels Safe at Home: Yes Safety Concerns: Feels Safe At This Time Smoking Status: Never smoker Hx Alcohol Use: No Hx Substance Use: No Dental Care, Regularly: Yes Physical Activity Frequency: Does not Exercise Seatbelt Use: always Do you think of yourself as: straight/heterosexual Physical Exam Constitutional: well developed and + obese; no acute distress Eyes: + anicteric sclerae; no corneal abnormality ENMT: Mouth: no oral mucosal abnormality and oral mucous membranes not dry Neck: normal visual inspection, trachea midline and + thick neck Respiratory: normal respiratory effort Auscultation: + wheezes; no rales Cardiovascular: Rate/Rhythm: + bradycardic Heart Sounds: normal S1 and normal S2 Extremities: no edema Gastrointestinal (Abdomen): Percussion/Palpation: abdomen soft; abdomen nontender Musculoskeletal: Extremities: no cyanosis and no clubbing Skin: + turgor decreased; no lesions Neurologic: Motor/Sensory: no tremor and no asterixis Psychiatric: Orientation: alert and oriented x 3 Results & Data Vital Signs (Past 12 Hours) Vital Signs Temp Pulse Pulse Resp BP Pulse Ox 12/28/19 07:07 36.8 C 59 L 20 160/72 H 99 12/28/19 07:02 67 20 98 12/28/19 03:48 55 L 14 98 12/28/19 00:42 60 60 16 98 12/27/19 23:08 36.9 C 65 20 155/73 H 97 12/27/19 22:10 65 18 97 Laboratory Results Laboratory Results - last 24 hr 12/27/19 12/27/19 12/27/19 11:11 16:37 20:26 PT INR Sodium Potassium Chloride Carbon Dioxide Anion Gap BUN Creatinine Est Cr Clr Drug Dosing Est GFR ( Amer) Est GFR (Non-Af Amer) BUN/Creatinine Ratio Glucose POC Glucose 161 H 137 H 137 H Calcium 12/28/19 12/28/19 12/28/19 07:19 07:36 07:36 PT 20.8 H INR 2.0 H Sodium 140 Potassium 4.1 D Chloride 105 Carbon Dioxide 33 H Anion Gap 2.0 L BUN 47 H Creatinine 1.83 H Est Cr Clr Drug Dosing 30.3 Est GFR ( Amer) 30.5 Est GFR (Non-Af Amer) 26.3 BUN/Creatinine Ratio 25.7 H Glucose 84 POC Glucose 72 Calcium 8.7 PG Care Time/CCT Total # of Minutes Spent Total Time Spent with Patient: Total time spent is greater than 50% in coordination of care (as documented) at patient's floor/unit and/or counseling patient: Coding Level of Care Code 68999 Inpt Consult Level 4 Diagnoses Influenza A J10.1 Acute renal failure N17.9 Paroxysmal A-fib I48.0 CKD (chronic kidney disease), stage IV N18.4
[2019-12-28] MEDS: OSELTAMIVIR PHOSPHATE SUSP 30 MG/5 ML UDP PO SCH (10:29)
[2019-12-28] MEDS: POLYETHYLENE (MIRALAX) 17 GM PACK PO SCH (10:30)
[2019-12-28] MEDS: BUMETANIDE 2 MG in SYRINGE 0 ML IV SCH (10:31)
[2019-12-28] MEDS: DOCUSATE SODIUM 100 MG CAP PO SCH ×4 (10:32→21:10)
[2019-12-28] MEDS ORDERED: WARFARIN SOD 2.5 MG TAB PO ONE (16:00)
[2019-12-28] MEDS ORDERED: BUMETANIDE 1 MG TAB PO SCH (17:00)
[2019-12-28] MEDS: METOCLOPRAMIDE HCL 10 MG TABLET PO SCH (17:13)
[2019-12-28] MEDS: WARFARIN SOD 2.5 MG TAB PO SCH (17:13)
--- NOTE | 2019-12-28 17:30 | Hospitalist Progress Note ---
Date of Service December 28, 2019 Assessment & Plan (1) Influenza A: Tamiflu 30mg daily, total 5 days course (last dose today) Noted mild wheezing on exam again today, suspect more from fluid retention than inflammation. Continue levalbuterol/ipratropium as patient feels improved with this but will continue to defer steroids. Procalcitonin negative. CXR 12/26 with no infiltrate. Continue 5 day course of doxycycline. Continue Flutter valve QID, Incentive spirometer Q1H WA (2) Volume overload: Patient with CKD, diastolic CHF, HTN, TAMMIE on CPAP presented with increasing weight gain, edema, SOB and cough despite outpatient diuretic regimen of bumex 2mg PO BID (+ additional doses taken by patient). Patient is on room air. Definitive fluid retention with bumex 2mg BID therefore discussed with Dr Sanchez and will increase to 3mg BID with extra 2mg dose today. (3) Paroxysmal A-fib: On warfarin. INR 2.0. Extra 2.5mg given today. Continue warfarin 2.5mg PO T/W/F/S/Sun and 5mg PO M. Decreased metoprolol back to 25mg QAM as patient has been amanda. Remains RR on auscultation (4) CKD (chronic kidney disease), stage IV: Patient with CKD. Worse recently with increasing doses of bumex and spironolactone. Spironolactone d/c by her spring intern and Cr improving since but worsening fluid retention. Actually on reduced diuretics here as she was taking addition doses of bumex at home due to concern for increasing weight. Although Cr improve suspect this needs to run a little higher to maintain euvolemic status. Bumex increased to 3mg PO BID as above after discussion with Dr Sanchez Continue Calcitriol 0.25mg PO daily. Avoid nephrotoxic agents. Renally dose medications when possible. Monitor BMP. Appreciate nephrology management (5) HTN (hypertension): Chronic. Continue home isosorbide mononitrate 90mg Metoprolol 25mg daily (6) Diabetes: Chronic. Most HbA1c 8.8 in November 2019 Hypoglycemic this morning 59 Will consult pharmacy for further glycemic control (7) Chronic diastolic (congestive) heart failure: Chronic. ECHO nov 2019 with diastolic dysfunction grade I , EF 55-60%, mild AR, mild LVH Suspect fluid balance problem more due to CKD than heart failure. (8) Obstructive sleep apnea of adult: Continue CPAP qHS (9) Hypothyroidism: Chronic. Stable. TSH 2.24 Continue home levothyroxine 75mcg daily (10) Hypokalemia: Secondary to loop diuretic use. Monitor daily and replace as necessary (11) Cough: ?secondary to fluid retention rather than inflammation Worse today with increased fluid retention on exam and increasing weight charted DuoNeb Q4prn Flutter valve QID (12) Dyslipidemia: Chronic. Stable Continue home Vytorin (ezetimibe-simvastatin). Will d/c fibrate while admitted as not on formulary and not receiving here. (13) GERD without esophagitis: Chronic. Stable Continue Protonix 40mg po daily (14) Depression: Chronic. Stable Continue Cymbalta 30mg po QAM, Clonazepam qHS (15) Gout, joint: Chronic. No acute flare at this time. Continue Allopurinol 100 mg po daily (16) Allergic rhinitis: Chronic. Stable D/C home med Azelastine as not on formulary here and no recurrence in symptoms Continue home Marie (17) DVT prophylaxis: INR therapeutic 2.0 PT/OT evals --> rec [facility]. Admission and Anticipated Discharge Date Admission Date: December 25, 2019 Subjective Patient reports increasing cough. No longer on oxygen but reports worsening shortness of breath. Nebulizers helping with her cough but she also feels like she is retaining fluid. Weight increasing. Legs, arms and face feel swollen. No palpitaions, orthopnea or PND. Review of Systems Review of Systems: All systems reviewed & are unremarkable except as noted in HPI & below Physical Exam Constitutional: well developed and + morbidly obese; + not well nourished and no acute distress Eyes: + anicteric sclerae; normal pupil size ENMT: external ear and nose normal, oropharynx normal Neck: trachea midline Respiratory: normal respiratory effort and + cough (dry); no respiratory distress, no labored breathing and does not use accessory muscles Auscultation: + diminished lung sounds (bibasal), + crackles (bibasal) and + wheezes (mild exp); no rhonchi Cardiovascular: Rate/Rhythm: regular rate and regular rhythm Heart Sounds: no murmur Extremities: + edema (3+ to knees b/l LE 1+ UE) Gastrointestinal (Abdomen): normal bowel sounds, soft, nontender, no hepatosplenomegaly Musculoskeletal: no cyanosis or clubbing, extremities motor strength 5/5 Skin: no rashes, warm and dry Neurologic: moves all extremities and awake; no focal motor deficits and not confused Psychiatric: A+Ox3, euthymic affect Lymphatic: no cervical or axillary lymphadenopathy Results & Data ([facility] [place]) Vital Signs (Past 12 Hours) Vital Signs Temp Pulse Resp BP Pulse Ox 12/28/19 16:05 36.9 C 58 L 19 128/67 93 12/28/19 13:36 79 18 94 12/28/19 12:20 37 C 63 18 111/61 95 12/28/19 11:20 36.9 C 69 20 91/66 L 91 12/28/19 07:07 36.8 C 59 L 20 160/72 H 99 12/28/19 07:02 67 20 98 PG Care Time/CCT Total # of Minutes Spent Total Time Spent with Patient: Total time spent is greater than 50% in coordination of care (as documented) at patient's floor/unit and/or counseling patient: Coding Level of Care Code 55927 Subseq Hosp Care Lvl 2 Diagnoses Influenza A J10.1 Volume overload E87.70 Hypervolemia type: unspecified Paroxysmal A-fib I48.0 CKD (chronic kidney disease), stage IV N18.4 HTN (hypertension) I10 Hypertension type: essential hypertension Diabetes E11.9; Z79.4 Diabetes mellitus complication status: without complication Diabetes mellitus long term care administrator insulin use: with half-way use Diabetes mellitus type: type 2 Chronic diastolic (congestive) heart failure I50.32 Obstructive sleep apnea of adult G47.33 Hypothyroidism E03.9 Hypothyroidism type: unspecified Hypokalemia E87.6 Cough R05 Dyslipidemia E78.5 GERD without esophagitis K21.9 Depression F32.9 Active/Remission status: remission status unspecified Depression Type: major depressive disorder Major depression recurrence: unspecified whether recurrent Gout, joint M10.9 Allergic rhinitis J30.9 Allergic rhinitis seasonality: unspecified Allergic rhinitis trigger: unspecified DVT prophylaxis Z29.9 (1) Diabetes Diabetes mellitus complication status: without complication Diabetes mellitus half-way insulin use: with half-way use Diabetes mellitus type: type 2 Qualified Code(s): E11.9 - Type 2 diabetes mellitus without complications; Z79.4 - snf (current) use of insulin (2) Depression Active/Remission status: remission status unspecified Depression Type: major depressive disorder Major depression recurrence: unspecified whether recurrent Qualified Code(s): F32.9 - Major depressive disorder, single episode, unspecified (3) Hypothyroidism Hypothyroidism type: unspecified Qualified Code(s): E03.9 - Hypothyroidism, unspecified (4) Allergic rhinitis Allergic rhinitis seasonality: unspecified Allergic rhinitis trigger: unspecified Qualified Code(s): J30.9 - Allergic rhinitis, unspecified (5) HTN (hypertension) Hypertension type: essential hypertension Qualified Code(s): I10 - Essential (primary) hypertension (6) Volume overload Hypervolemia type: unspecified Qualified Code(s): E87.70 - Fluid overload, unspecified
[2019-12-28] MEDS ORDERED: BUMETANIDE 1 MG TAB PO ONE (18:00)
[2019-12-28] MEDS: ACETAMINOPHEN 325 MG TAB PO PRN (18:40)
[2019-12-28] MEDS: EZETIMIBE/SIMVASTATIN 10/40MG 1 TAB TAB PO SCH (21:10)
[2019-12-28] MEDS: clonazePAM 0.5 MG TAB PO SCH (21:10)
[2019-12-28] MEDS ORDERED: Nursing to Pharmacy Communication ONE (22:04)
[2019-12-29] MEDS: CARBOHYDRATES FOR HYPOGLYCEMIA PO PRN (00:10)
[2019-12-29] MEDS: LEVALBUTEROL HCL 0.63 MG/3 ML NEB NEB SCH ×4 (01:03→19:30)
[2019-12-29] MEDS: IPRATROPIUM BROMIDE NEB SOLN 0.02% 2.5 ML VIAL INH SCH ×4 (01:04→19:30)
[2019-12-29] MEDS ORDERED: INSULIN ASPART 100 UNITS/ML 3 ML PEN SC SCH ×3 (02:00→04:00)
[2019-12-29] MEDS: LEVOTHYROXINE SODIUM 75 MCG TABLET PO SCH (06:07)
[2019-12-29] MEDS: PANTOprazole 40 MG TAB PO SCH (06:07)
[2019-12-29 06:08] LABS: Prothrombin Time 20.5 Seconds (9.0-12.0)
[2019-12-29 06:28] LABS: Potassium 3.7 mmol/L (3.5-5.1)
[2019-12-29 06:29] LABS: BUN Creatinine Ratio 26.9 (10-20); Calcium 8.3 mg/dl (8.5-10.1); Creatinine Clr Calc Pharmacy 28.7 ml/min; Est GFR (African American) 28.8; Est GFR (Non-African American) 24.9
[2019-12-29] MEDS: DOCUSATE SODIUM 100 MG CAP PO SCH ×4 (08:20→21:04)
[2019-12-29] MEDS: ACETAMINOPHEN 325 MG TAB PO PRN ×2 (08:20→23:41)
[2019-12-29] MEDS: DOXYCYCLINE HYCLATE 100 MG CAP PO SCH ×2 (08:21→21:04)
[2019-12-29] MEDS: POTASSIUM CHLORIDE 20 MEQ TABCR PO SCH (08:21)
[2019-12-29] MEDS: DULOXETINE HCL 30 MG CAP PO SCH (08:21)
[2019-12-29] MEDS: BENZONATATE 100 MG CAPSULE PO SCH ×3 (08:21→21:04)
[2019-12-29] MEDS: POLYETHYLENE (MIRALAX) 17 GM PACK PO SCH (08:21)
[2019-12-29] MEDS: FEXOFENADINE HCL 180 MG TAB PO SCH (08:21)
[2019-12-29] MEDS: allopurinoL 100 MG TAB PO SCH (08:21)
[2019-12-29] MEDS: ISOSORBIDE MONO EXTENDED REL 30 MG TABCR PO SCH (08:22)
[2019-12-29] MEDS: BUMETANIDE 1 MG TAB PO SCH ×2 (08:22→17:17)
[2019-12-29] MEDS: CALCITRIOL 0.25 MCG CAPSULE PO SCH (08:22)
[2019-12-29] MEDS: METOPROLOL TARTRATE 25 MG TAB PO SCH (09:17)
[2019-12-29] MEDS: INSULIN ASPART 100 UNITS/ML 3 ML PEN SC SCH ×4 (09:18→21:07)
[2019-12-29] MEDS: INSULIN GLARGINE SOLOSTAR 100 UNITS/ML 3 ML PEN SC SCH (09:18)
--- NOTE | 2019-12-29 11:12 | Nephrology Progress Note ---
Date of Service December 29, 2019 Assessment & Plan (1) Influenza A: Tamiflu appropriately dosed for kidney function. (2) Acute renal failure: Consistent with acute on chronic CRS. Creatinine stable. Some permissive rise in creatinine tolerated to achieve euvolemic. Adequate urine output. Continue to hold Aldactone. Bumex to encourage a slightly negative fluid balance. Continue Bumex 3 mg PO BID. Monitor metabolic profile regularly. Document strict I/O's. Daily weights. Medications appropriately dosed for kidney function. Electrolytes controlled. (3) Paroxysmal A-fib: Anticoagulated with warfarin. (4) CKD (chronic kidney disease), stage IV: Creatinine returned to baseline. Close outpatient follow up post discharge. No emergent indication for dialysis at this time. Subjective No acute events overnight. Beverley feels slightly better this AM. No fevers or chills. Dyspnea improved. Cough improved. Review of Systems Review of Systems: All systems reviewed & are unremarkable except as noted in HPI & below Physical Exam Constitutional: well developed and + obese; no acute distress Eyes: + anicteric sclerae; no corneal abnormality ENMT: Mouth: no oral mucosal abnormality and oral mucous membranes not dry Neck: normal visual inspection, trachea midline and + thick neck Respiratory: normal respiratory effort Auscultation: no rales Cardiovascular: Rate/Rhythm: + bradycardic Heart Sounds: normal S1 and n ormal S2 Extremities: no edema Gastrointestinal (Abdomen): Percussion/Palpation: abdomen soft; abdomen nontender Musculoskeletal: Extremities: no cyanosis and no clubbing Skin: + turgor decreased; no lesions Neurologic: Motor/Sensory: no tremor and no asterixis Psychiatric: Orientation: alert and oriented x 3 Results & Data Vital Signs (Past 12 Hours) Vital Signs Temp Pulse Resp BP BP Pulse Ox 12/29/19 07:23 60 18 93 12/29/19 07:07 36.7 C 60 18 133/66 94 12/29/19 01:04 64 16 94 12/29/19 00:16 36.7 C 63 18 121/70 95 Laboratory Results Laboratory Results - last 24 hr 12/28/19 12/28/19 12/28/19 11:41 17:04 20:43 PT INR Sodium Potassium Chloride Carbon Dioxide Anion Gap BUN Creatinine Est Cr Clr Drug Dosing Est GFR ( Amer) Est GFR (Non-Af Amer) BUN/Creatinine Ratio Glucose POC Glucose 136 H 88 90 Calcium Specimen Hemolysis 12/29/19 12/29/19 12/29/19 00:05 00:10 00:25 PT INR Sodium Potassium Chloride Carbon Dioxide Anion Gap BUN Creatinine Est Cr Clr Drug Dosing Est GFR ( Amer) Est GFR (Non-Af Amer) BUN/Creatinine Ratio Glucose POC Glucose 52 L* 53 L* 60 L* Calcium Specimen Hemolysis 12/29/19 12/29/19 12/29/19 00:47 04:03 05:17 PT INR Sodium 139 Potassium 3.7 Chloride 105 Carbon Dioxide 30 Anion Gap 4.0 BUN 52 H Creatinine 1.92 H Est Cr Clr Drug Dosing 28.7 Est GFR ( Amer) 28.8 Est GFR (Non-Af Amer) 24.9 BUN/Creatinine Ratio 26.9 H Glucose 117 H POC Glucose 73 112 H Calcium 8.3 L Specimen Hemolysis 12/29/19 12/29/19 05:17 08:19 PT 20.5 H INR 2.0 H Sodium Potassium Chloride Carbon Dioxide Anion Gap BUN Creatinine Est Cr Clr Drug Dosing Est GFR ( Amer) Est GFR (Non-Af Amer) BUN/Creatinine Ratio Glucose POC Glucose 108 H Calcium Specimen Hemolysis PG Care Time/CCT Total # of Minutes Spent Total Time Spent with Patient: Total time spent is greater than 50% in coordinat ion of care (as documented) at patient's floor/unit and/or counseling patient: Coding Level of Care Code 73028 Subseq Hosp Care Lvl 3 Diagnoses Influenza A J10.1 Acute renal failure N17.9 Paroxysmal A-fib I48.0 CKD (chronic kidney disease), stage IV N18.4
[2019-12-29] MEDS: GUAIFENESIN/DEXTROM SYRUP 100MG/10MG 5ML UDC PO PRN (12:54)
--- NOTE | 2019-12-29 13:57 | Pharmacy Report ---
Pharmacy Glycemic Short Note 2 - Date of Service December 29, 2019 - Glycemic Short BSG Results (Last 24 hours): 12/28/19 12/28/19 12/29/19 17:04 20:43 00:05 Glucose POC Glucose 88 90 52 L* 12/29/19 12/29/19 12/29/19 00:10 00:25 00:47 Glucose POC Glucose 53 L* 60 L* 73 12/29/19 12/29/19 12/29/19 04:03 05:17 08:19 Glucose 117 H POC Glucose 112 H 108 H 12/29/19 12:09 Glucose POC Glucose 180 H OUTPATIENT ANTIDIABETIC REGIMEN: * Basaglar 64 units BID * Novolog 14 with breakfast, 18 with lunch, and 14 with dinner + scale * A1c = 8.8 % 11/20/2019 ASSESSMENT: * Patient requiring significantly less insulin inpatient compared to reported outpatient regimen * BSGs well controlled yesterday until HS where patient experience a low of 52 mg/dL * May be a result of accumulation of large basal doses given days previous * Fasting BSG this morning of 108 mg/dL up from yesterday (72 mg/dL) * Will continue 30 units of Lantus daily and loosen CF/CR * Patient finished oseltamivir today - continues on doxycycline PLAN FOR INPATIENT GLYCEMIC CONTROL: * Basal insulin * Lantus 30 units SQ daily * Bolus insulin * NovoLog per scale ACHS or Q6hrs while NPO * Goal Range: Low 110 mg/dL - High 140 mg/dL * Correction Factor: 25 mg/dL/unit * Nutritional / Prandial insulin per carb ratio of 1 unit per 9 grams CHO consumed PLAN FOR DISCHARGE: * To be determined - will continue to follow inpatient insulin needs * Questionable compliance vs. discrepancy in inpatient/outpatient diet given A1c and current outpatient vs. inpatient doses of insulin
[2019-12-29] MEDS: WARFARIN SOD 2.5 MG TAB PO SCH (16:01)
[2019-12-29] MEDS ORDERED: WARFARIN SOD 2.5 MG TAB PO ONE (16:30)
[2019-12-29] MEDS: METOCLOPRAMIDE HCL 10 MG TABLET PO SCH (17:16)
--- NOTE | 2019-12-29 20:23 | Hospitalist Progress Note ---
Date of Service December 29, 2019 Assessment & Plan (1) Influenza A: Tamiflu 30mg daily - finished 5 day course Procalcitonin negative. CXR 12/26 with no infiltrate. Complete doxycycline course for atypical coverage for short 5 day course as no procalcitonin taken on admission (stop date 12/31). Continue Flutter valve QID, Incentive spirometer Q1HWA (2) Volume overload: Patient with CKD, diastolic CHF, HTN, TAMMIE on CPAP presented with increasing weight gain, edema, SOB and cough despite outpatient diuretic regimen of bumex 2mg PO BID (+ additional doses taken by patient). Patient is on room air. Discussed with Dr Sanchez and increased bumex to 3mg PO BID and will let Cr rise as she was clearly gaining weight and fluid retention on lower dosing. She remains hypervolemic on exam which given generalized anasarca is due to CKD/hypoalbuminemia rather than diastolic heart failure. (3) Paroxysmal A-fib: On warfarin. INR 2.1. Additional 2.5mg today Continue warfarin 2.5mg PO T/W/F/S/Sun and 5mg PO M. Continue metoprolol home dosing Continue to monitor. (4) CKD (chronic kidney disease), stage IV: Patient with CKD. Worse recently with increasing doses of bumex and spironolactone. Spironolactone d/c by her accounts receivable specialist and Cr improving since although she has also noticed weight gain. Bumex increased to 3mg PO BID yesterday with worsening Cr but required to ma intain a euvolemic state. Continue Calcitriol 0.25mg PO daily. Avoid nephrotoxic agents. Renally dose medications when possible. Monitor BMP. Appreciate nephrology recommendations (5) HTN (hypertension): Chronic. Continue home isosorbide mononitrate 90mg Metoprolol 25mg daily (6) Diabetes: Chronic. Most HbA1c 8.8 in November 2019 Appreciate pharmacy glycemic control with basal/bolus insulin (7) Chronic diastolic (congestive) heart failure: Chronic. ECHO nov 2019 with diastolic dysfunction grade I , EF 55-60%, mild AR, mild LVH Suspect fluid balance problem more due to CKD than heart failure. (8) Obstructive sleep apnea of adult: Continue CPAP qHS (9) Hypothyroidism: Chronic. Stable. TSH 2.24 Continue home levothyroxine 75mcg daily (10) Hypokalemia: Secondary to loop diuretic use. Monitor daily and replace as necessary (11) Cough: Improved with increased diuresis (12) Dyslipidemia: Chronic. Stable Continue home Vytorin (ezetimibe-simvastatin). D/C fibrate while admitted as not on formulary and not receiving here. (13) GERD without esophagitis: Chronic. Stable Continue Protonix 40mg po daily (14) Depression: Chronic. Stable Continue Cymbalta 30mg po QAM, Clonazepam qHS (15) Gout, joint: Chronic. No acute flare at this time. Continue Allopurinol 100 mg po daily (16) Allergic rhinitis: Chronic. Stable Will d/c home med Azelastine as not on formulary here and no recurrence in symptoms Continue home Marie (17) DVT prophylaxis: INR therapeutic 2.1 PT/OT evals --> rec home health. Admission and Anticipated Discharge Date Admission Date: December 25, 2019 Subjective Patient reports improvement in shortness of breath, leg swelling and generalized swelling of arms and face with increased dose of bumex. No O2 requirement at this time. Review of Systems Review of Systems: All systems reviewed & are unremarkable except as noted in HPI & below Physical Exam Constitutional: well developed and + morbidly obese; + not well nourished and no acute distress Eyes: + anicteric sclerae; normal pupil size ENMT: external ear and nose normal, oropharynx normal Neck: trachea midline Respiratory: normal respiratory effort; no respiratory distress, no labored breathing, does not use accessory muscles and no cough Auscultation: + diminished lung sounds (bibasal) and + crackles (bibasal); no rhonchi and no wheezes Cardiovascular: Rate/Rhythm: regular rate and regular rhythm Heart Sounds: no murmur Extremities: + edema (2+ to knees b/l LE 1+ UE) Gastrointestinal (Abdomen): normal bowel sounds, soft, nontender, no hepatosplenomegaly Musculoskeletal: no cyanosis or clubbing, extremities motor strength 5/5 Skin: no rashes, warm and dry Neurologic: moves all extremities and awake; no focal motor deficits and not confused Speech / Cognition: normal speech Motor/Sensory: no tremor Psychiatric: A+Ox3, euthymic affect Results & Data ([facility]) Vital Signs (Past 12 Hours) Vital Signs Temp Pulse Resp BP Pulse Ox 12/29/19 20:11 59 L 16 95 12/29/19 15:34 37.0 C 56 L 19 134/69 96 12/29/19 13:30 56 L 18 97 PG Care Time/CCT Total # of Minutes Spent Total Time Spent with Patient: Total time spent is greater than 50% in coordination of care (as documented) at patient's floor/unit and/or counseling patient: Coding Level of Care Code 49048 Subseq Hosp Care Lvl 2 Diagnoses Influenza A J10.1 Volume overload E87.70 Hypervolemia type: unspecified Paroxysmal A-fib I48.0 CKD (chronic kidney disease), stage IV N18.4 HTN (hypertension) I10 Hypertension type: essential hypertension Diabetes E11.9; Z79.4 Diabetes mellitus complication status: without complication Diabetes mellitus truck terminal manager insulin use: with truck terminal manager use Diabetes mellitus type: type 2 Chronic diastolic (congestive) heart failure I50.32 Obstructive sleep apnea of adult G47.33 Hypothyroidism E03.9 Hypothyroidism type: unspecified Hypokalemia E87.6 Cough R05 Dyslipidemia E78.5 GERD without esophagitis K21.9 Depression F32.9 Active/Remission status: remission status unspecified Depression Type: major depressive disorder Major depression recurrence: unspecified whether recurrent Gout, joint M10.9 Allergic rhinitis J30.9 Allergic rhinitis seasonality: unspecified Allergic rhinitis trigger: unspecified DVT prophylaxis Z29.9 (1) Diabetes Diabetes mellitus complication status: without complication Diabetes mellitus chcf insulin use: with chcf use Diabetes mellitus type: type 2 Qualified Code(s): E11.9 - Type 2 diabetes mellitus without complications; Z79.4 - [facility] (current) use of insulin (2) Depression Active/Remission status: remission status unspecified Depression Type: major depressive disorder Major depression recurrence: unspecified whether recurrent Qualified Code(s): F32.9 - Major depressive disorder, single episode, unspecified (3) Hypothyroidism Hypothyroidism type: unspecified Qualified Code(s): E03.9 - Hypothyroidism, unspecified (4) Allergic rhinitis Allergic rhinitis seasonality: unspecified Allergic rhinitis trigger: unspecified Qualified Code(s): J30.9 - Allergic rhinitis, unspecified (5) HTN (hypertension) Hypertension type: essential hypertension Qualified Code(s): I10 - Essential (primary) hypertension (6) Volume overload Hypervolemia type: unspecified Qualified Code(s): E87.70 - Fluid overload, unspecified
[2019-12-29] MEDS: clonazePAM 0.5 MG TAB PO SCH (21:04)
[2019-12-29] MEDS: EZETIMIBE/SIMVASTATIN 10/40MG 1 TAB TAB PO SCH (21:04)
[2019-12-30] MEDS: IPRATROPIUM BROMIDE NEB SOLN 0.02% 2.5 ML VIAL INH SCH ×2 (01:16→07:31)
[2019-12-30] MEDS: LEVALBUTEROL HCL 0.63 MG/3 ML NEB NEB SCH ×2 (01:16→07:31)
[2019-12-30] MEDS: PANTOprazole 40 MG TAB PO SCH (05:09)
[2019-12-30] MEDS: LEVOTHYROXINE SODIUM 75 MCG TABLET PO SCH (05:09)
[2019-12-30 05:22] LABS: INR 2.4 (0.9-1.1); Prothrombin Time 24.5 Seconds (9.0-12.0)
[2019-12-30 05:41] LABS: BUN Creatinine Ratio 27.9 (10-20); Calcium 8.7 mg/dl (8.5-10.1); Est GFR (African American) 27.1; Est GFR (Non-African American) 23.4; Potassium 3.8 mmol/L (3.5-5.1)
[2019-12-30] MEDS: METOPROLOL TARTRATE 25 MG TAB PO SCH (08:55)
[2019-12-30] MEDS: POLYETHYLENE (MIRALAX) 17 GM PACK PO SCH (08:55)
[2019-12-30] MEDS: DOCUSATE SODIUM 100 MG CAP PO SCH ×4 (08:55→21:00)
[2019-12-30] MEDS: FEXOFENADINE HCL 180 MG TAB PO SCH (08:57)
[2019-12-30] MEDS: BUMETANIDE 1 MG TAB PO SCH ×2 (08:57→16:39)
[2019-12-30] MEDS: ISOSORBIDE MONO EXTENDED REL 30 MG TABCR PO SCH (08:58)
[2019-12-30] MEDS: DULOXETINE HCL 30 MG CAP PO SCH (08:58)
[2019-12-30] MEDS: CALCITRIOL 0.25 MCG CAPSULE PO SCH (08:58)
[2019-12-30] MEDS: allopurinoL 100 MG TAB PO SCH (08:58)
[2019-12-30] MEDS: POTASSIUM CHLORIDE 20 MEQ TABCR PO SCH (08:58)
[2019-12-30] MEDS: DOXYCYCLINE HYCLATE 100 MG CAP PO SCH ×2 (08:59→21:00)
[2019-12-30] MEDS: INSULIN GLARGINE SOLOSTAR 100 UNITS/ML 3 ML PEN SC SCH (09:02)
[2019-12-30] MEDS: INSULIN ASPART 100 UNITS/ML 3 ML PEN SC SCH ×4 (09:03→21:05)
[2019-12-30] MEDS: BENZONATATE 100 MG CAPSULE PO SCH ×3 (09:11→21:00)
--- NOTE | 2019-12-30 10:11 | Pharmacy Report ---
Pharmacy Glycemic Short Note 2 - Date of Service December 30, 2019 - Glycemic Short BSG Results (Last 24 hours): 12/29/19 12/29/19 12/29/19 12:09 17:02 20:16 Glucose POC Glucose 180 H 142 H 128 H 12/30/19 12/30/19 04:57 08:16 Glucose 182 H POC Glucose 137 H OUTPATIENT ANTIDIABETIC REGIMEN: * Basaglar 64 units BID * Novolog 14 with breakfast, 18 with lunch, and 14 with dinner + scale * A1c = 8.8 % 11/20/2019 ASSESSMENT: * Patient requiring significantly less insulin inpatient compared to reported outpatient regimen * BSGs well controlled yesterday ranging 108-180 mg/dL * Fasting BSG this morning increasing from days previous: 137 mg/dL (up from 72, 108 mg/dL) * Will continue current regimen and consider Lantus scale for this evening * Continues on doxycycline PLAN FOR INPATIENT GLYCEMIC CONTROL: * Basal insulin * Lantus 30 units SQ daily in the morning * Lantus scale HS (see EHR for details) * Bolus insulin - tighten starting at dinner * NovoLog per scale ACHS or Q6hrs while NPO * Goal Range: Low 110 mg/dL - High 140 mg/dL * Correction Factor: 20 mg/dL/unit * Nutritional / Prandial insulin per carb ratio of 1 unit per 7 grams CHO consumed PLAN FOR DISCHARGE: * To be determined - will continue to follow inpatient insulin needs * Questionable compliance vs. discrepancy in inpatient/outpatient diet given A1c and current outpatient vs. inpatient doses of insulin
--- NOTE | 2019-12-30 10:33 | Nephrology Progress Note ---
Date of Service December 30, 2019 Assessment & Plan (1) Influenza A: Clinically improving. (2) Acute renal failure: Consistent with acute on chronic CRS. Creatinine stable. A permissive rise in creatinine is tolerated to achieve euvolemia. Adequate urine output. Continue to hold Aldactone. Bumex to encourage a slightly negative fluid balance. Continue Bumex 3 mg PO BID. Monitor metabolic profile regularly. Document strict I/O's. Daily weights. Medications appropriately dosed for kidney function. Electrolytes controlled. Please obtain a BMP within 1 week of discharge and fax results to [phone]. (3) Paroxysmal A-fib: Anticoagulated with warfarin. (4) CKD (chronic kidney disease), stage IV: Creatinine returned to baseline. Close outpatient follow up post discharge. No emergent indication for dialysis at this time. Subjective No acute events overnight. No fevers or chills. Beverley is breathing comfortably. She was out of bed with physical therapy this morning. Overall, feeling significantly improved but unfortunately she has reservations about discharge home today. Her sister is in [place] for the day. Beverley does not have any assistance at home at this time. Review of Systems Review of Systems: All systems reviewed & are unremarkable except as noted in HPI & below Physical Exam Constitutional: well developed and + obese; no acute distress Eyes: + anicteric sclerae; no corneal abnormality ENMT: Mouth: no oral mucosal abnormality and oral mucous membranes not dry Neck: normal visual inspection, trachea midline and + thick neck Respiratory: normal respiratory effort Auscultation: no rales Cardiovascular: Rate/Rhythm: + bradycardic Heart Sounds: normal S1 and normal S2 Extremities: no edema Gastrointestinal (Abdomen): Percussion/Palpation: abdomen soft; abdomen nontender Musculoskeletal: Extremities: no cyanosis and no clubbing Skin: + turgor decreased; no lesions Neurologic: Motor/Sensory: no tremor and no asterixis Psychiatric: Orientation: alert and oriented x 3 Results & Data Vital Signs (Past 12 Hours) Vital Signs Temp Pulse Pulse Resp BP Pulse Ox 12/30/19 07:33 57 L 18 92 12/30/19 06:53 36.8 C 57 L 16 151/72 H 93 12/30/19 02:29 66 18 95 12/30/19 01:18 65 20 94 12/29/19 23:49 62 18 95 12/29/19 23:15 37 C 60 18 168/64 H 94 Laboratory Results Laboratory Results - last 24 hr 12/29/19 12/29/19 12/29/19 12:09 17:02 20:16 PT INR Sodium Potassium Chloride Carbon Dioxide Anion Gap BUN Creatinine Est Cr Clr Drug Dosing Est GFR ( Amer) Est GFR (Non-Af Amer) BUN/Creatinine Ratio Glucose POC Glucose 180 H 142 H 128 H Calcium 12/30/19 12/30/19 12/30/19 04:57 04:57 08:16 PT 24.5 H INR 2.4 H Sodium 140 Potassium 3.8 Chloride 105 Carbon Dioxide 31 Anion Gap 4.0 BUN 56 H Creatinine 2.02 H Est Cr Clr Drug Dosing 27.0 Est GFR ( Amer) 27.1 Est GFR (Non-Af Amer) 23.4 BUN/Creatinine Ratio 27.9 H Glucose 182 H POC Glucose 137 H Calcium 8.7 PG Care Time/CCT Total # of Minutes Spent Total Time Spent with Patient: Total time spent is greater than 50% in coordination of care (as documented) at patient's floor/unit and/or counseling patient: Coding Level of Care Code 78265 Subseq Hosp Care Lvl 3 Diagnoses Influenza A J10.1 Acute renal failure N17.9 Paroxysmal A-fib I48.0 CKD (chronic kidney disease), stage IV N18.4
[2019-12-30] MEDS: ACETAMINOPHEN 325 MG TAB PO PRN (15:16)
[2019-12-30] MEDS: WARFARIN SOD 5 MG TAB PO SCH (16:35)
[2019-12-30] MEDS: METOCLOPRAMIDE HCL 10 MG TABLET PO SCH (16:39)
--- NOTE | 2019-12-30 19:02 | Hospitalist Progress Note ---
Date of Service December 30, 2019 Assessment & Plan (1) Influenza A: Tamiflu 30mg daily, finished 5 day course Procalcitonin negative. CXR 12/26 with no infiltrate. Complete doxycycline course for atypical coverage for short 5 day course as no procalcitonin taken on admission (stop date 12/31). Continue Flutter valve QID, Incentive spirometer Q1HWA (2) Volume overload: Patient with CKD, diastolic CHF, HTN, TAMMIE on CPAP presented with increasing weight gain, edema, SOB and cough despite outpatient diuretic regimen of bumex 2mg PO BID (+ additional doses taken by patient). Patient is on room air. Now stable on Bumex 3mg PO BID, have to accept worse Cr in order to maintain euvolemic fluid balance. (3) Paroxysmal A-fib: On warfarin. INR 2.4. Continue usual warfarin dosing 2.5mg PO T/W/F/S/Sun and 5mg PO M. Decreased metoprolol back to 25mg QAM as patient has been amanda. Remains RR on auscultation (4) CKD (chronic kidney disease), stage IV: Diuretics as above. Continue Calcitriol 0.25mg PO daily. Avoid nephrotoxic agents. Renally dose medications when possible. Monitor BMP. Appreciate nephrology management (5) HTN (hypertension): Chronic. Continue home isosorbide mononitrate 90mg Metoprolol 25mg daily (6) Diabetes: Chronic. Most recent HbA1c 8.8 in November 2019 Appreciate pharmacy glycemic control with basal/bolus insulin (7) Chronic diastolic (congestive) heart failure: Chronic. ECHO nov 2019 with diastolic dysfunction grade I , EF 55-60%, mild AR, mild LVH Suspect fluid balance problem more due to CKD than heart failure. (8) Obstructive sleep apnea of adult: Continue CPAP qHS (9) Hypothyroidism: Chronic. Stable. TSH 2.24 Continue home levothyroxine 75mcg daily (10) Hypokalemia: Secondary to loop diuretic use. Monitor daily and replace as necessary (11) Cough: ?secondary to fluid retention rather than inflammation Worse today with increased fluid retention on exam and increasing weight charted DuoNeb Q4prn Flutter valve QID (12) Dyslipidemia: Chronic. Stable Continue home Vytorin (ezetimibe-simvastatin). D/C fibrate while admitted as not on formulary and not receiving here. (13) GERD without esophagitis: Chronic. Stable Continue Protonix 40mg po daily (14) Depression: Chronic. Stable Continue Cymbalta 30mg po QAM, Clonazepam qHS (15) Gout, joint: Chronic. No acute flare at this time. Continue Allopurinol 100 mg po daily (16) Allergic rhinitis: Chronic. Stable D/C home med Azelastine as not on formulary here and no recurrence in symptoms Continue home Marie (17) DVT prophylaxis: INR therapeutic 2.4 PT/OT evals --> rec home health. Admission and Anticipated Discharge Date Admission Date: December 25, 2019 Medically stable for discharge Anticipated date of discharge: 12/31/19 Subjective No acute events overnight. No fevers or chills. Fluid balance stable on current dosing of Bumex. Medically ready for discharge but does not have anyone to check on her today at her house or transport her home and does not wish to go for rehabilitation. Review of Systems Review of Systems: All systems reviewed & are unremarkable except as noted in HPI & below Physical Exam Constitutional: well developed and + morbidly obese; + not well nourished and no acute distress Respiratory: normal respiratory effort and + cough (dry); no respiratory distress, no labored breathing and does not use accessory muscles Auscultation: + diminished lung sounds (bibasal) and + crackles (bibasal); no rhonchi and no wheezes Cardiovascular: Rate/Rhythm: regular rate and regular rhythm Heart Sounds: no murmur Extremities: + edema (2+ to knees b/l) Gastrointestinal (Abdomen): Inspection/Auscultation: normal bowel sounds Percussion/Palpation: abdomen soft; abdomen nontender Skin: no rashes, warm and dry Neurologic: moves all extremities and awake; no focal motor deficits and not confused Psychiatric: A+Ox3, euthymic affect Results & Data ([facility]) Vital Signs (Past 12 Hours) Vital Signs Temp Pulse Resp BP Pulse Ox 12/30/19 15:54 36.9 C 56 L 18 145/65 H 95 12/30/19 08:50 73 12/30/19 07:33 57 L 18 92 PG Care Time/CCT Total # of Minutes Spent Total Time Spent with Patient: Total time spent is greater than 50% in coordination of care (as documented) at patient's floor/unit and/or counseling patient: Coding Level of Care Code 87739 Subseq Hosp Care Lvl 1 Diagnoses Influenza A J10.1 Volume overload E87.70 Hypervolemia type: unspecified Paroxysmal A-fib I48.0 CKD (chronic kidney disease), stage IV N18.4 HTN (hypertension) I10 Hypertension type: essential hypertension Diabetes E11.9; Z79.4 Diabetes mellitus complication status: without complication 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 use Diabetes mellitus type: type 2 Chronic diastolic (congestive) heart failure I50.32 Obstructive sleep apnea of adult G47.33 Hypothyroidism E03.9 Hypothyroidism type: unspecified Hypokalemia E87.6 Cough R05 Dyslipidemia E78.5 GERD without esophagitis K21.9 Depression F32.9 Active/Remission status: remission status unspecified Depression Type: major depressive disorder Major depression recurrence: unspecified whether recurrent Gout, joint M10.9 Allergic rhinitis J30.9 Allergic rhinitis seasonality: unspecified Allergic rhinitis trigger: unspecified DVT prophylaxis Z29.9 (1) Diabetes Diabetes mellitus complication status: without complication Diabetes mellitus nursing home insulin use: with nursing home use Diabetes mellitus type: type 2 Qualified Code(s): E11.9 - Type 2 diabetes mellitus without complications; 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 (2) Depression Active/Remission status: remission status unspecified Depression Type: major depressive disorder Major depression recurrence: unspecified whether recurrent Qualified Code(s): F32.9 - Major depressive disorder, single episode, unspecified (3) Hypothyroidism Hypothyroidism type: unspecified Qualified Code(s): E03.9 - Hypothyroidism, unspecified (4) Allergic rhinitis Allergic rhinitis seasonality: unspecified Allergic rhinitis trigger: unspecified Qualified Code(s): J30.9 - Allergic rhinitis, unspecified (5) HTN (hypertension) Hypertension type: essential hypertension Qualified Code(s): I10 - Essential (primary) hypertension (6) Volume overload Hypervolemia type: unspecified Qualified Code(s): E87.70 - Fluid overload, unspecified
[2019-12-30] MEDS: clonazePAM 0.5 MG TAB PO SCH (21:00)
[2019-12-30] MEDS ORDERED: INSULIN GLARGINE SOLOSTAR 100 UNITS/ML 3 ML PEN SC SCH (21:00)
[2019-12-30] MEDS: EZETIMIBE/SIMVASTATIN 10/40MG 1 TAB TAB PO SCH (21:00)
[2019-12-31] MEDS: PANTOprazole 40 MG TAB PO SCH (05:22)
[2019-12-31] MEDS: LEVOTHYROXINE SODIUM 75 MCG TABLET PO SCH (05:22)
[2019-12-31 05:49] LABS: INR 3.1 (0.9-1.1); Prothrombin Time 30.4 Seconds (9.0-12.0)
[2019-12-31 06:12] LABS: Calcium 8.7 mg/dl (8.5-10.1); Est GFR (African American) 27.2; Est GFR (Non-African American) 23.5; Potassium 3.7 mmol/L (3.5-5.1)
[2019-12-31] MEDS: DULOXETINE HCL 30 MG CAP PO SCH (09:00)
[2019-12-31] MEDS: BUMETANIDE 1 MG TAB PO SCH (09:00)
[2019-12-31] MEDS: POTASSIUM CHLORIDE 20 MEQ TABCR PO SCH (09:00)
[2019-12-31] MEDS ORDERED: INSULIN GLARGINE SOLOSTAR 100 UNITS/ML 3 ML PEN SC SCH (09:00)
[2019-12-31] MEDS: allopurinoL 100 MG TAB PO SCH (09:00)
[2019-12-31] MEDS: METOPROLOL TARTRATE 25 MG TAB PO SCH (09:01)
[2019-12-31] MEDS: FEXOFENADINE HCL 180 MG TAB PO SCH (09:01)
[2019-12-31] MEDS: CALCITRIOL 0.25 MCG CAPSULE PO SCH (09:01)
[2019-12-31] MEDS: DOXYCYCLINE HYCLATE 100 MG CAP PO SCH (09:01)
[2019-12-31] MEDS: ISOSORBIDE MONO EXTENDED REL 30 MG TABCR PO SCH (09:01)
[2019-12-31] MEDS: INSULIN ASPART 100 UNITS/ML 3 ML PEN SC SCH ×2 (09:03→12:48)
[2019-12-31] MEDS: POLYETHYLENE (MIRALAX) 17 GM PACK PO SCH (09:04)
--- NOTE | 2019-12-31 10:06 | Nephrology Progress Note ---
Date of Service December 31, 2019 Assessment & Plan (1) Influenza A: Clinically improving. (2) Acute renal failure: Consistent with acute on chronic CRS. Creatinine stable. A permissive rise in creatinine is tolerated to achieve euvolemia. Adequate urine output. Continue to hold Aldactone. Bumex to encourage a slightly negative fluid balance. Continue Bumex 3 mg PO BID. Monitor metabolic profile regularly. Document strict I/O's. Daily weights. Medications appropriately dosed for kidney function. Electrolytes controlled. Please obtain a BMP within 1 week of discharge and fax results to [phone]. (3) Paroxysmal A-fib: Anticoagulated with warfarin. (4) CKD (chronic kidney disease), stage IV: Creatinine returned to baseline. Close outpatient follow up post discharge. Subjective No acute events overnight. No fevers or chills. Beverley is breathing comfortably. Productive cough. No chest pain. Remains in a negative fluid balance, I/O: - 1.3L. Review of Systems Review of Systems: All systems reviewed & are unremarkable except as noted in HPI & below Physical Exam Constitutional: well developed and + obese; no acute distress Eyes: + anicteric sclerae; no corneal abnormality ENMT: Mouth: no oral mucosal abnormality and oral mucous membranes not dry Neck: normal visual inspection, trachea midline and + thick neck Respiratory: normal respiratory effort Auscultation: no rales Cardiovascular: Rate/Rhythm: + bradycardic Heart Sounds: normal S1 and normal S2 Extremities: no edema Gastrointestinal (Abdomen): Percussion/Palpation: abdomen soft; abdomen nontender Musculoskeletal: Extremities: no cyanosis and no clubbing Skin: + turgor decreased; no lesions Neurologic: Motor/Sensory: no tremor and no asterixis Psychiatric: Orientation: alert and oriented x 3 Results & Data Vital Signs (Past 12 Hours) Vital Signs Temp Pulse Pulse Resp BP Pulse Ox 12/31/19 07:00 37.0 C 58 L 20 145/84 H 94 12/31/19 03:11 62 16 94 12/30/19 23:27 37.0 C 57 L 24 164/73 H 96 12/30/19 23:25 58 L 18 97 Laboratory Results Laboratory Results - last 24 hr 12/30/19 12/30/19 12/30/19 12:07 17:09 20:38 PT INR Sodium Potassium Chloride Carbon Dioxide Anion Gap BUN Creatinine Est Cr Clr Drug Dosing Est GFR ( Amer) Est GFR (Non-Af Amer) BUN/Creatinine Ratio Glucose POC Glucose 231 H 150 H 153 H Calcium 12/31/19 12/31/19 12/31/19 05:17 05:17 07:56 PT 30.4 H INR 3.1 H Sodium 141 Potassium 3.7 Chloride 106 Carbon Dioxide 31 Anion Gap 4.0 BUN 56 H Creatinine 2.01 H Est Cr Clr Drug Dosing 27.0 Est GFR ( Amer) 27.2 Est GFR (Non-Af Amer) 23.5 BUN/Creatinine Ratio 28.0 H Glucose 157 H POC Glucose 123 H Calcium 8.7 PG Care Time/CCT Total # of Minutes Spent Total Time Spent with Patient: Total time spent is greater than 50% in coordination of care (as documented) at patient's floor/unit and/or counseling patient: Coding Level of Care Code 75222 Subseq Hosp Care Lvl 3 Diagnoses Influenza A J10.1 Acute renal failure N17.9 Paroxysmal A-fib I48.0 CKD (chronic kidney disease), stage IV N18.4
[2019-12-31] MEDS: DOCUSATE SODIUM 100 MG CAP PO SCH ×2 (10:56→13:21)
[2019-12-31] MEDS: BENZONATATE 100 MG CAPSULE PO SCH ×2 (10:57→13:21)
--- NOTE | 2019-12-31 11:27 | Pharmacy Report ---
Pharmacy Glycemic Short Note 2 - Date of Service December 31, 2019 - Glycemic Short BSG Results (Last 24 hours): 12/30/19 12/30/19 12/30/19 12:07 17:09 20:38 Glucose POC Glucose 231 H 150 H 153 H 12/31/19 12/31/19 05:17 07:56 Glucose 157 H POC Glucose 123 H OUTPATIENT ANTIDIABETIC REGIMEN: * Basaglar 64 units BID * Novolog 14 with breakfast, 18 with lunch, and 14 with dinner + scale * A1c = 8.8 % 11/20/2019 ASSESSMENT: * Patient requiring significantly less insulin inpatient compared to reported outpatient regimen * BSGs yesterday ranging 137-231 mg/dL * Fasting BSG this morning of 123 mg/dL * Patient received 40 units of basal insulin yesterday - will plan on Lantus 20 units BID * Continues on doxycycline PLAN FOR INPATIENT GLYCEMIC CONTROL: * Basal insulin * Lantus 20 units SC BID * Bolus insulin - continue * NovoLog per scale ACHS or Q6hrs while NPO * Goal Range: Low 110 mg/dL - High 140 mg/dL * Correction Factor: 20 mg/dL/unit * Nutritional / Prandial insulin per carb ratio of 1 unit per 7 grams CHO consumed PLAN FOR DISCHARGE: * Given significant discrepancy between outpatient/inpatient insulin needs * In the interest of safety, would recommend decreasing insulin regimen to better match inpatient needs and for patient to follow-up with outpatient endocrinology for further dose titration * At this point, would recommend Lantus 20-25 units SC BID and Novolog 6 units with breakfast, 10 units with lunch, and 6 units with dinner
--- NOTE | 2019-12-31 13:25 | Discharge Summary ---
Date of Service December 31, 2019 Admission HPI Per Admitting Provider Ms. Beverley Baer is a pleasant 74yo C female with multiple medical problems to include CAD/CHF/HTN/DM/PAF and CKD stage III presenting with failed outpatient diuretic therapy. Patient follows with Dr. Sanchez of Nephrology, last seen on 12/09/19. She had been taking Spironolactone which has been on hold since 12/23/19 per direction of Nephrology. Daily diuretic regimen was Bumex 2mg po BID with instruction to take an extra dose of Bumex if her weight goes above 226#. She has been taking an extra dose of Bumex since 12/15/19. Her weight continues to increase , was 218# on 12/09, increased to 235.5 today despite the increased Bumex. Patient also complaining of some SOB/CARR which started 2 days ago, cough productive for clear phlegm and progressive bilateral LE edema. She denies fevers/chills/chest pain/palpitations/abdominal pain/nausea/vomiting/diarrhea or constipation. She reports normal UOP with no dysuria/hematuria. No recent travel. No sick contacts. No suspicion for exposure to Covid-19 ER Course: Bumex 2mg IV Principal Diagnosis Influenza A Pulmonary edema, hypervolemia secondary to CKD Discharge Exam Constitutional well developed and + morbidly obese; + not well nourished and no acute distress Neck trachea midline Respiratory normal respiratory effort and + cough (dry); no respiratory distress, no labored breathing and does not use accessory muscles Auscultation: + diminished lung sounds (bibasal); no crackles, no rhonchi and no wheezes Cardiovascular Rate/Rhythm: regular rate and regular rhythm Heart Sounds: no murmur Extremities: + edema (2+ to knees b/l) Gastrointestinal (Abdomen) Inspection/Auscultation: normal bowel sounds Percussion/Palpation: abdomen soft; abdomen nontender Skin no rashes, warm and dry Neurologic moves all extremities and awake; not confused Psychiatric A+Ox3, euthymic affect Discharge Data Allergies Allergy/AdvReac Type Severity Reaction Status Date / Time clarithromycin Allergy Intermediate RASH AND Verified 12/23/19 16:56 ITCHING Consultations 12/26/19 12:31 Consult Case Management - Discharge Planning Routine 12/28/19 07:39 Consult Nephrology Routine Ordered Studies 12/24/19 17:51 CT head/brain wo con Stat Hospital Course (1) Influenza A: Tamiflu 30mg daily, total 5 days course (last dose today) Noted mild wheezing on exam again today, suspect more from fluid retention than inflammation. Continue levalbuterol/ipratropium as patient feels improved with this but will continue to defer steroids. Procalcitonin negative. CXR 12/26 with no infiltrate. Continue 5 day course of doxycycline. Continue Flutter valve QID, Incentive spirometer Q1H WA (2) Volume overload: Patient with CKD, diastolic CHF, HTN, TAMMIE on CPAP presented with increasing weight gain, edema, SOB and cough despite outpatient diuretic regimen of bumex 2mg PO BID (+ additional doses taken by patient). Patient is on room air. Definitive fluid retention with bumex 2mg BID therefore discussed with Dr Sanchez and will increase to 3mg BID with extra 2mg dose today. (3) Paroxysmal A-fib: On warfarin. INR 2.0. Extra 2.5mg given today. Continue warfarin 2.5mg PO T/W/F/S/Sun and 5mg PO M. Decreased metoprolol back to 25mg QAM as patient has been amanda. Remains RR on auscultation (4) CKD (chronic kidney disease), stage IV: Patient with CKD. Worse recently with increasing doses of bumex and spironolactone. Spironolactone d/c by her household chores and Cr improving since but worsening fluid retention. Actually on reduced diuretics here as she was taking addition doses of bumex at home due to concern for increasing weight. Although Cr improve suspect this needs to run a little higher to maintain euvolemic status. Bumex increased to 3mg PO BID as above after discussion with Dr Sanchez Continue Calcitriol 0.25mg PO daily. Avoid nephrotoxic agents. Renally dose medications when possible. Monitor BMP. Appreciate nephrology management (5) HTN (hypertension): Chronic. Continue home isosorbide mononitrate 90mg Metoprolol 25mg daily (6) Diabetes: Chronic. Most HbA1c 8.8 in November 2019 Appreciate pharmacy glycemic control with basal/bolus insulin (7) Chronic diastolic (congestive) heart failure: Chronic. ECHO nov 2019 with diastolic dysfunction grade I , EF 55-60%, mild AR, mild LVH Suspect fluid balance problem more due to CKD than heart failure. (8) Obstructive sleep apnea of adult: Continue CPAP qHS (9) Hypothyroidism: Chronic. Stable. TSH 2.24 Continue home levothyroxine 75mcg daily (10) Hypokalemia: Secondary to loop diuretic use. Monitor daily and replace as necessary (11) Cough: ?secondary to fluid retention rather than inflammation Worse today with increased fluid retention on exam and increasing weight charted DuoNeb Q4prn Flutter valve QID (12) Dyslipidemia: Chronic. Stable Continue home Vytorin (ezetimibe-simvastatin). D/C fibrate while admitted as not on formulary and not receiving here. (13) GERD without esophagitis: Chronic. Stable Continue Protonix 40mg po daily (14) Depression: Chronic. Stable Continue Cymbalta 30mg po QAM, Clonazepam qHS (15) Gout, joint: Chronic. No acute flare at this time. Continue Allopurinol 100 mg po daily (16) Allergic rhinitis: Chronic. Stable D/C home med Azelastine as not on formulary here and no recurrence in symptoms Continue home Marie (17) DVT prophylaxis: INR therapeutic 2.0 PT/OT evals --> rec home health. Total Time Total Time Spent Total Time Spent (In Minutes): 35 Total Time Includes: Examination of the Patient, Discharge Planning and Medication Reconciliation Discharge Plan Discharge Items Patient Disposition: Home - Home Health Services Reason For Visit: Shortness of breath Discharge Diagnosis: Influenza A Pulmonary edema, hypervolemia secondary to CKD Activity: Resume your previous activity Non-emergency contact: Primary Care Provider Call non-emergency contact if: you have any medication questions and your symptoms worsen Follow-up/Referrals: Alfred Mckeon III, CRNP [Primary Care Provider] - (No follow up required) Vin Sanchez DO [Physician] - (within the next month) Diet: Carb Consistent or DM2, Heart Healthy and Low Sodium (2gm) Fluids: 1200ml (5 cups) Addtl Attending Provider Instructions: You were admitted to [facility] from December 22 to 2019 due to shortness of breath. You were diagnosed with influenza A and treated with Tamiflu for the complete course. In addition you developed pulmonary edema and worsening fluid status which was treated with increased bumex. This resulted in slightly worsening renal function which appears to be necessary in order to enable your current overall fluid status. Unfortunately this also means trying to get to a completely dry weight would mean causing even worse perfusion to your kidneys. Please call your household chores if you continue to gain fluid and weight at home despite this increase in dosage or you become progressively more short of breath. In an emergency please return to the ER. In addition you were noted to need much less insulin during your hospital admission, this is like due to the reduced carbohydrate diet. Recommend returning on your usual insulin dosing as long as your diet is the same as prior to this admission but if you have any low glucose levels please call your analysis tester. On the day prior to admission you only required 40 units of basal insulin and 24 units of bolus insulin which shows you could significantly improve your diabetes control with changing you home diet. Please continue to follow up with your endocrinologists as previous arranged. Kind regards, Dr Eligio Valencia Pending Studies at Discharge: No Stand-Alone Forms: My DEQ, Smoking Cessation Medications and DC Order Prescriptions: Continued cranberry fruit concentrate [Azo Cranberry] 250 mg tablet,chewable 500 mg PO QDL RF: 0 nitroglycerin [Nitrostat] 0.4 mg Tablet, Sublingual 0.4 mg UT UD PRN (Reason: Chest Pain) Qty: 0 RF: 0 (DME) OneTouch Ultra Blue Test Strip strip See Dose Instructions .ROUTE .MEDSUPPLY Qty: 400 RF: 1 azelastine 137 mcg (0.1 %) aerosol,spray 2 sprays INTNAS BID Qty: 90 RF: 1 Basaglar KwikPen U-100 Insulin 100 unit/mL (3 mL) insulin pen 64 unit SC BID Qty: 45 RF: 5 (DME) pen needle, diabetic [BD Ultra-Fine Mini Pen Needle] 31 gauge x 3/16" needle See Dose Instructions .ROUTE .MEDSUPPLY Qty: 500 RF: 1 terconazole 0.4 % cream 1 appl PV Q2D PRN (Reason: Rash) RF: 0 betamethasone dipropionate 0.05 % cream 1 appln topical UD PRN (Reason: Rash) RF: 0 docusate sodium [Colace] 100 mg capsule 100 mg PO QID RF: 0 fexofenadine [Marie Allergy] 180 mg tablet 180 mg PO QAM RF: 0 (DME) lancets [OneTouch Delica Lancets] 33 gauge misc See Dose Instructions .ROUTE .MEDSUPPLY Qty: 100 RF: 0 isosorbide mononitrate 30 mg tablet extended release 24 hr 90 mg PO QAM RF: 0 ergocalciferol (vitamin D2) 1,250 mcg (50,000 unit) capsule 50,000 unit PO UD RF: 0 warfarin [Coumadin] 5 mg tablet 2.5 mg PO SUTUWEFRSA RF: 0 warfarin [Coumadin] 5 mg tablet 5 mg PO MOTH RF: 0 insulin aspart U-100 [Novolog Flexpen U-100 Insulin] 100 unit/mL (3 mL) insulin pen 14 unit SUBCUT QDD RF: 0 insulin aspart U-100 [Novolog Flexpen U-100 Insulin] 100 unit/mL (3 mL) insulin pen 0 unit SUBCUT HS RF: 0 insulin aspart U-100 [Novolog Flexpen U-100 Insulin] 100 unit/mL (3 mL) Insulin Pen 18 unit SUBCUT QDL RF: 0 clonazepam [Klonopin] 0.5 mg tablet 0.5 mg PO HS RF: 0 levothyroxine [Synthroid] 75 mcg tablet 75 mcg PO DAILYBB RF: 0 potassium chloride [Klor-Con M20] 20 mEq tablet,ER particles/crystals 20 meq PO QAM RF: 0 pantoprazole [Protonix] 40 mg tablet,delayed release (DR/EC) 40 mg PO DAILYBB RF: 0 calcitriol [Rocaltrol] 0.25 mcg capsule 0.25 mcg PO DAILY RF: 0 metoclopramide HCl [Reglan] 10 mg tablet 10 mg PO QDD RF: 0 insulin aspart U-100 [Novolog Flexpen U-100 Insulin] 100 unit/mL (3 mL) insulin pen 14 units subcut QDB RF: 0 metoprolol tartrate 25 mg tablet 25 mg PO QAM RF: 0 duloxetine [Cymbalta] 30 mg capsule,delayed release(DR/EC) 30 mg PO QAM RF: 0 fenofibric acid (choline) [Trilipix] 135 mg capsule,delayed release(DR/EC) 135 mg PO QAM RF: 0 Changed bumetanide 2 mg tablet 3 mg PO BID 90 Days Qty: 180 RF: 3 Discontinued spironolactone [Aldactone] 50 mg Tablet 0 mg PO BID Qty: 0 RF: 0 Hold Instructions: Home Medication placed on hold at Doctor's office No Action allopurinol [Zyloprim] 100 mg tablet 100 mg PO QAM Qty: 90 RF: 1 ezetimibe-simvastatin [Vytorin 10-40] 10-40 mg tablet 1 tab PO HS Qty: 90 RF: 1 Discharge Orders: Discharge Order (Routine); Ordered 12/31/19 Ordered By: Eligio Valencia Admission Data Admit Date/Time: 12/23/19 19:53 Attending Provider: Eligio Valencia Admit Provider: Zoe Owen Primary Care Provider: Alfred Mckeon III Other Providers: Vin Sanchez Other Interventions: Discharge Summary Assessment (RN) Last Done: 12/31/19 13:28 DC Date/Time DO NOT enter until pt leaves facility: 12/31/19 15:18 Coding Level of Care Code D/C Day Management >30 mins Diagnoses Influenza A J10.1 Volume overload E87.70 Hypervolemia type: unspecified Paroxysmal A-fib I48.0 CKD (chronic kidney disease), stage IV N18.4 HTN (hypertension) I10 Hypertension type: essential hypertension Diabetes E11.9; Z79.4 Diabetes mellitus complication status: without complication Diabetes mellitus snf insulin use: with snf use Diabetes mellitus type: type 2 Chronic diastolic (congestive) heart failure I50.32 Obstructive sleep apnea of adult G47.33 Hypothyroidism E03.9 Hypothyroidism type: unspecified Hypokalemia E87.6 Cough R05 Dyslipidemia E78.5 GERD without esophagitis K21.9 Depression F32.9 Active/Remission status: remission status unspecified Depression Type: major depressive disorder Major depression recurrence: unspecified whether recurrent Gout, joint M10.9 Allergic rhinitis J30.9 Allergic rhinitis seasonality: unspecified Allergic rhinitis trigger: unspecified DVT prophylaxis Z29.9
== END 2019-12-31 15:18 | disposition home health service (06) | DRG 194 ==
LOC: ED 14:56 → 2W 14:56 → SUATTDRO 19:53 → 2W 20:56 → SUATTDRO 12-25 15:16 → 3N 12-28 12:23

== ENCOUNTER 2021-03-07 18:06 | Inpatient (IN) ==
[2021-03-07] MEDS ORDERED: ALBUT/IPRATROP 3MG/0.5MG NEB 3 ML VIAL NEB STA (18:19)
--- NOTE | 2021-03-07 18:26 | Emergency Department Note ---
History of Present Illness General Chief complaint: Shortness of Breath/Dyspnea Stated complaint: WEAKNESS, SOB Time Seen by Provider: 03/07/21 18:09 Source: patient and EMS Mode of arrival: EMS Limitations: no limitations History of Present Illness Provider complaint: Shortness of breath Onset (ago): day(s) 3 Location: chest Radiation: non-radiation Relieved By: + none Exacerbated By: + none Associated symptoms: + chest pain, + shortness of breath and + other; no fever/chills Treatments prior to arrival: none This is a 75-year-old female presents emergency department via EMS due to concern for worsening shortness of breath. Patient states she first began noticing she was slightly more short of breath than usual approximately a month ago. She states over the last month the most particularly over the last 3 days her breathing has gotten markedly worse. She states her breathing is particular ly worse with any movement or exertion. Patient states she does have a history of asthma, does not wear oxygen at home, however does use MDIs and nebulizer treatments. Patient states she has been using those as they are prescribed. Patient states with the difficulty breathing she has developed a sense of chest tightness. Patient states she does have cardiac history and has previously been told she was in congestive heart failure. As result of this she states she does weigh herself daily and noticed over the last 3 days she gained 10 pounds. She denies any fluid restriction to her diet. States she does have a history of kidney problems. Patient states she does take a diuretic daily. 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 She states her last INR was elevated, she was instructed to skip a dose, and it was to be rechecked tomorrow. Patient denies any sick contacts or known exposure to coronavirus. EMS did place her on oxygen in route, however she states this did not help very much. Pt seen during a time of high acuity and national emergency pandemic while wearing PPE. Home Medications Medication Instructions Recorded Confirmed Type nitroglycerin [Nitrostat] 0.4 mg UT UD PRN #0 09/28/09 03/07/21 History cranberry fruit concentrate 250 mg 500 mg PO QDL tab 08/20/18 03/07/21 History chewable tablet docusate sodium 100 mg capsule 100 mg PO QID cap 05/10/19 03/07/21 History fexofenadine 180 mg tablet 180 mg PO QAM tab 05/10/19 03/07/21 History lancets 33 gauge #100 ea 05/10/19 01/26/21 History azelastine 137 mcg (0.1 %) nasal 2 sprays INTNAS BID #90 ml 10/28/19 03/07/21 Rx spray aerosol terconazole 0.4 % vaginal cream 1 appl PV DAILY PRN #45 gm 04/26/20 03/07/21 Rx blood sugar diagnostic #400 ea 07/07/20 01/26/21 Rx pantoprazole 40 mg tablet,delayed 40 mg PO DAILY #90 tab 08/15/20 03/07/21 Rx release potassium chloride 20 mEq 20 meq PO DAILY #90 tab 09/20/20 03/07/21 Rx tablet,extended release(part/cryst) metoclopramide HCl 10 mg tablet 10 mg PO QPM #90 tab 09/26/20 03/07/21 Rx metoprolol tartrate 25 mg tablet 25 mg PO QAM #90 tab 10/03/20 03/07/21 Rx fenofibric acid (choline) 135 mg 135 mg PO QAM #90 cap 10/26/20 03/07/21 Rx capsule,delayed release duloxetine 30 mg capsule,delayed 30 mg PO QAM #90 cap 12/06/20 03/07/21 Rx release desonide 0.05 % topical cream 1 applic TOPICAL BID #60 g 12/18/20 03/07/21 Rx allopurinol 100 mg tablet 100 mg PO QAM #90 tab 12/21/20 03/07/21 Rx bumetanide 2 mg tablet 3 mg PO BID 90 Days #180 tab 01/08/21 03/07/21 Rx calcitriol 0.5 mcg capsule 0.5 mcg PO DAILY #90 cap 01/08/21 03/07/21 Rx insulin aspart U-100 100 unit/mL 3 - 6 unit SUBCUT ACHS ml 01/22/21 03/07/21 History (3 mL) subcutaneous pen isosorbide mononitrate 30 mg 30 mg PO TID #270 tab 01/25/21 03/07/21 Rx tablet,extended release 24 hr pen needle, diabetic 31 gauge x #500 ea 01/29/21 Rx 3/16" Xopenex HFA 45 mcg/actuation 1 - 2 inh INH Q4H PRN #15 g NS 02/07/21 03/07/21 Rx aerosol inhaler insulin glargine 100 unit/mL (3 45 unit SC BID ml 02/20/21 03/07/21 History mL) subcutaneous pen ipratropium 0.5 mg-albuterol 3 mg 3 ml INHALATION QID PRN #90 ml 02/20/21 03/07/21 Rx (2.5 mg base)/3 mL nebulization soln ezetimibe 10 mg-simvastatin 40 mg 1 tab PO HS #90 tab 02/26/21 03/07/21 Rx tablet clonazepam 0.5 mg tablet 0.5 mg PO HS #30 tab 03/01/21 03/07/21 Rx levothyroxine 88 mcg tablet 88 mcg PO DAILY #30 tab 03/05/21 03/07/21 Rx ergocalciferol (vitamin D2) 1,250 50,000 unit PO Q14D #6 cap 03/06/21 03/07/21 Rx mcg (50,000 unit) capsule betamethasone dipropionate 1 applic TOPICAL Q OTHER DAY PRN 03/07/21 03/07/21 History warfarin 5 mg PO DIRECTED 03/07/21 03/07/21 History Allergies Allergy/AdvReac Type Severity Reaction Status Date / Time clarithromycin Allergy Intermediate RASH AND Verified 03/07/21 18:56 ITCHING Past Med/Surg History Medical History (Updated 03/09/21 @ 01:12 by Felicia Mac DO) Acute osteomyelitis Cataract CHF (congestive heart failure) Chronic anemia Constipation Decubitus ulcer Diabetic foot ulcer Encounter for health maintenance examination Gastric ulcer Gastroparesis Gout, joint Herpes zoster Hiatal hernia Influenza A Pneumonia Secondary hyperparathyroidism of renal origin Stasis ulcer Stenosis of trachea Vaginitis Surgical History H/O adenoidectomy H/O hand surgery H/O knee surgery H/O: hysterectomy Hx of salpingo-oophorectomy, bilateral S/P tonsillectomy Family History Father Emphysema, unspecified Sister Uterine cancer Ovarian cancer Other Liver cancer Denies family history of Colon cancer Pancreatic cancer Prostate cancer Myocardial infarction Breast cancer Bleeding disorder Colorectal cancer Social History Smoking Status: Never smoker Second Hand Exposure: No; Hx Alcohol Use: No Hx Substance Use: No Preferred Language: Trinidadian Communication Ability: Effective Visual Impairment: Limited 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 and A total of 10 systems reviewed and were otherwise negative Physical Exam GENERAL: alert, unwell appearing, well nourished, no distress, non-toxic, BMI>40 EYE EXAM: normal conjunctiva, PERRL and EOM's grossly intact OROPHARYNX: no exudate, no erythema, lips, buccal mucosa, and tongue normal and mucous membranes are moist NECK: supple, no nuchal rigidity, no adenopathy, non-tender LUNGS: Clear to auscultation. Normal chest wall mechanics, no w/r, b/l wheezing, slight pursed lip breathing HEART: no murmurs, S1 normal and S2 normal ABDOMEN: abdomen soft, non-tender, normo-active bowel sounds, no masses, no rebound or guarding. BACK: Back is symmetrical on inspection and there is no deformity, no midline tenderness, no CVA tenderness. SKIN: no rashes and no bruising UPPER EXTREMITIES: upper extremities are grossly normal. FROM, nml pulses b/l. LOWER EXTREMITIES: 3+ b/l pitting edema. FROM, nml pulses b/l. NEURO EXAM: Normal sensorium, cranial nerves II-XII grossly intact, normal speech, no gross weakness of arms, no gross weakness of legs. Gross sensation intact. Course Administered Medications Acetaminophen (Acetaminophen 325 Mg Tab) 650 mg PO Q4H PRN PRN Reason: Pain or Fever Stop: 04/07/21 00:47 Last Admin: 03/08/21 07:49 Dose: 650 mg Documented by: [id number] Allopurinol (Allopurinol 100 Mg Tab) 100 mg PO QAM [facility] Stop: 04/07/21 08:59 Last Admin: 03/08/21 07:52 Dose: 100 mg Documented by: [id number] Calcitriol (Calcitriol 0.25 Mcg Capsule) 0.5 mcg PO DAILY [facility] Stop: 04/07/21 08:59 Last Admin: 03/08/21 07:52 Dose: 0.5 mcg Documented by: [id number] Clonazepam (Clonazepam 0.5 Mg Tab) 0.5 mg PO [facility] Stop: 04/07/21 20:59 Last Admin: 03/08/21 20:12 Dose: 0.5 mg Documented by: [id number] Dextrose (Dextrose 50% 50 Ml Syringe) 25 - 50 ml IV UD PRN; Protocol PRN Reason: Hypoglycemia Protocol Stop: 04/07/21 00:47 Last Admin: 03/08/21 16:29 Dose: 50 ml Documented by: [id number] Docusate Sodium (Docusate Sodium 100 Mg Cap) 100 mg PO QID [facility] Stop: 04/07/21 08:59 Last Admin: 03/08/21 20:12 Dose: 100 mg Documented by: [id number] Admin: 03/08/21 16:37 Dose: 100 mg Documented by: [id number] Admin: 03/08/21 12:00 Dose: 100 mg Documented by: [id number] Admin: 03/08/21 07:52 Dose: 100 mg Documented by: [id number] Duloxetine HCl (Duloxetine Hcl 30 Mg Cap) 30 mg PO [facility] Stop: 04/07/21 08:59 Last Admin: 03/08/21 07:52 Dose: 30 mg Documented by: [id number] Ezetimibe/Simvastatin (Ezetimibe/Simvastatin 10/40mg 1 Tab Tab) 1 tab PO [facility] Stop: 04/07/21 20:59 Last Admin: 03/08/21 20:14 Dose: 1 tab Documented by: [id number] Fexofenadine HCl (F[facility]ofenadine Hcl 180 Mg Tab) [facility] Stop: 04/07/21 08:59 Last Admin: 03/08/21 07:53 Dose: 180 mg Documented by: [id number] Glucose (Glucose 40% Gel 15 Gm Tube) 15 - 30 gm PO UD PRN; Protocol PRN Reason: Hypoglycemia Protocol Stop: 04/07/21 00:47 Last Admin: 03/08/21 11:25 Dose: 15 gm Documented by: [id number] Bumetanide 4 mg/ Syringe 16 mls @ 4 mls/min IV BID@0900,1700 [facility] Stop: 04/07/21 16:59 Last Admin: 03/08/21 16:37 Dose: 4 mls/min Documented by: [id number] Insulin Aspart (Insulin Aspart 100 Units/Ml 3 Ml Pen) 0 units SC ACHS [facility] Stop: 04/07/21 07:29 Last Admin: 03/08/21 21:05 Dose: Not Given Documented by: [id number] Admin: 03/08/21 16:34 Dose: Not Given Documented by: [id number] Cosigned by: [id number] Admin: 03/08/21 12:00 Dose: Not Given Documented by: [id number] Cosigned by: [id number] Admin: 03/08/21 07:55 Dose: Not Given Documented by: [id number] Cosigned by: [id number] Insulin Glargine (Insulin Glargine Solostar 100 Units/Ml 3 Ml Pen) 0 units SC BID [facility]; Protocol Stop: 04/07/21 20:59 Last Admin: 03/08/21 21:06 Dose: Not Given Documented by: [id number] Isosorbide Mononitrate (Isosorbide Alpine Extended Rel 30 Mg Tabcr) 30 mg PO TID [facility] Stop: 04/07/21 08:59 Last Admin: 03/08/21 20:14 Dose: 30 mg Documented by: [id number] Admin: 03/08/21 14:51 Dose: 30 mg Documented by: [id number] Admin: 03/08/21 07:53 Dose: 30 mg Documented by: [id number] Levothyroxine Sodium (Levothyroxine Sodium 88 Mcg Tablet) 88 mcg PO DAILYBB [facility] Stop: 04/07/21 06:29 Last Admin: 03/08/21 04:44 Dose: 88 mcg Documented by: [id number] Metoclopramide HCl (Metoclopramide Hcl 10 Mg Tablet) 10 mg PO QPM [facility] Stop: 04/07/21 20:59 Last Admin: 03/08/21 20:13 Dose: 10 mg Documented by: [id number] Metoprolol Tartrate (Metoprolol Tartrate 25 Mg Tab) 25 mg PO QAM [facility] Stop: 04/07/21 08:59 Last Admin: 03/08/21 07:53 Dose: 25 mg Documented by: [id number] Miscellaneous (Astelin - Order Awaiting Action) 1 ea N/A QS [facility] Stop: 04/07/21 07:59 Last Admin: 03/08/21 23:03 Dose: Not Given Documented by: [id number] Admin: 03/08/21 15:25 Dose: Not Given Documented by: [id number] Admin: 03/08/21 07:54 Dose: Not Given Documented by: [id number] Miscellaneous (Trilipix - Order Awaiting Action) 1 ea N/A QS [facility] Stop: 04/07/21 07:59 Last Admin: 03/08/21 23:03 Dose: Not Given Documented by: [id number] Admin: 03/08/21 15:25 Dose: Not Given Documented by: [id number] Admin: 03/08/21 07:54 Dose: Not Given Documented by: [id number] Miscellaneous (Carbohydrates For Hypoglycemia ) 15 - 30 gm PO UD PRN PRN Reason: Hypoglycemia Protocol Stop: 04/07/21 00:47 Last Admin: 03/08/21 11:25 Dose: 15 gm Documented by: [id number] Pantoprazole Sodium (Pantoprazole 40 Mg Tab) 40 mg PO DAILY [facility] Stop: 04/07/21 08:59 Last Admin: 03/08/21 07:53 Dose: 40 mg Documented by: [id number] Potassium Chloride (Potassium Chloride Crtab 20 Meq Tabcr) 20 meq PO DAILY [facility] Stop: 04/07/21 08:59 Last Admin: 03/08/21 07:53 Dose: 20 meq Documented by: [id number] Discontinued Medications Albuterol (Albut/Ipratrop 3mg/0.5mg Neb 3 Ml Vial) 3 ml NEB NOW STA Stop: 03/07/21 18:20 Last Admin: 03/07/21 18:32 Dose: 3 ml Documented by: [id number] Bumetanide 2 mg/ Syringe 8 mls @ 4 mls/min IV 2215 ONE Stop: 03/07/21 22:16 Last Admin: 03/08/21 00:10 Dose: 4 mls/min Documented by: [id number] Bumetanide 2 mg/ Syringe 8 mls @ 4 mls/min IV BID@0900,1700 [facility] Stop: 04/07/21 08:59 Last Admin: 03/08/21 07:53 Dose: 4 mls/min Documented by: [id number] Insulin Glargine (Insulin Glargine Solostar 100 Units/Ml 3 Ml Pen) 45 units SC BID [facility] Stop: 04/07/21 00:47 Last Admin: 03/08/21 07:54 Dose: 45 units Documented by: [id number] Cosigned by: [id number] Admin: 03/08/21 02:02 Dose: 45 units Documented by: [id number] Cosigned by: [id number] Medical Decision Making Differential Diagnosis Differential diagnoses includes but is not limited to pneumonia, bronchitis, COPD/Asthma exacerbation, pneumothorax, pulmonary embolism, congestive heart failure, acute coronary syndrome Medical Records Attestation: I reviewed the patient's medical records. Home Medications Current Medication List: was personally reviewed by me Laboratory Data Attestation: I reviewed the patient's lab results. Result diagrams: 03/08/21 06:31 03/08/21 06:31 Lab Results 03/07/21 03/07/21 03/07/21 Range/Units 18:44 18:44 18:44 WBC 5.91 (4.8-10.8) K/uL RBC 3.25 L (4.2-5.4) M/uL Hgb 8.5 L (12.0-16.0) g/dL Hct 27.5 L (37-47) % MCV 84.6 (80-100) fL MCH 26.2 (25-34) pg MCHC 30.9 L (32-36) g/dL RDW Std Deviation 51.1 H (36.4-46.3) fL RDW Coeff of Melonie 16.4 H (11.5-14.5) % Plt Count 104 L (130-400) K/uL MPV 10.8 H (7.4-10.4) fL Immature Gran % (Auto) 0.5 % Neut % (Auto) 78.3 % Lymph % (Auto) 10.5 % Alpine % (Auto) 7.6 % Eos % (Auto) 2.9 % Baso % (Auto) 0.2 % Neut # (Auto) 4.63 (1.4-6.5) K/uL Lymph # (Auto) 0.62 L (1.2-3.4) K/uL Alpine # (Auto) 0.45 (0.11-0.59) K/uL Eos # (Auto) 0.17 (0-0.5) K/uL Baso # (Auto) 0.01 (0-0.2) K/uL Immature Gran # (Auto) 0.03 H (0.00-0.02) K/uL PT 41.8 H (9.0-12.0) Seconds INR 4.7 H (0.9-1.1) Sodium 140 (136-145) mmol/L Potassium 4.1 (3.5-5.1) mmol/L Chloride 106 (98-107) mmol/L Carbon Dioxide 30 (21-32) mmol/L Anion Gap 4.0 (3-11) BUN 87 H (7-18) mg/dl Creatinine 2.39 H (0.6-1.2) mg/dl Est Cr Clr Drug Dosing 23.4 ml/min Est GFR ( Amer) 21.9 ml/min Est GFR (Non-Af Amer) 18.9 ml/min BUN/Creatinine Ratio 36.5 H (10-20) Glucose 242 H (70-99) mg/dl Calcium 9.4 (8.5-10.1) mg/dl Magnesium 2.8 H (1.8-2.4) mg/dl Total Bilirubin 0.4 (0.2-1) mg/dl AST 121 H (15-37) U/L ALT 91 H (12-78) U/L Alkaline Phosphatase 53 (45-117) U/L Troponin I 0.015 (0-0.045) ng/ml NT-Pro-B Natriuret Pep 1990 H (0-1800) pg/ml Total Protein 7.0 (6.4-8.2) gm/dl Albumin 3.1 L (3.4-5.0) gm/dl Globulin 3.9 (2.5-4.0) gm/dl Albumin/Globulin Ratio 0.8 L (0.9-2) COVID-19 Eval Order SARS-CoV-2 (PCR) (Negative) 03/07/21 03/07/21 Range/Units 21:40 21:40 WBC (4.8-10.8) K/uL RBC (4.2-5.4) M/uL Hgb (12.0-16.0) g/dL Hct (37-47) % MCV (80-100) fL MCH (25-34) pg MCHC (32-36) g/dL RDW Std Deviation (36.4-46.3) fL RDW Coeff of Melonie (11.5-14.5) % Plt Count (130-400) K/uL MPV (7.4-10.4) fL Immature Gran % (Auto) % Neut % (Auto) % Lymph % (Auto) % Alpine % (Auto) % Eos % (Auto) % Baso % (Auto) % Neut # (Auto) (1.4-6.5) K/uL Lymph # (Auto) (1.2-3.4) K/uL Alpine # (Auto) (0.11-0.59) K/uL Eos # (Auto) (0-0.5) K/uL Baso # (Auto) (0-0.2) K/uL Immature Gran # (Auto) (0.00-0.02) K/uL PT (9.0-12.0) Seconds INR (0.9-1.1) Sodium (136-145) mmol/L Potassium (3.5-5.1) mmol/L Chloride (98-107) mmol/L Carbon Dioxide (21-32) mmol/L Anion Gap (3-11) BUN (7-18) mg/dl Creatinine (0.6-1.2) mg/dl Est Cr Clr Drug Dosing ml/min Est GFR ( Amer) ml/min Est GFR (Non-Af Amer) ml/min BUN/Creatinine Ratio (10-20) Glucose (70-99) mg/dl Calcium (8.5-10.1) mg/dl Magnesium (1.8-2.4) mg/dl Total Bilirubin (0.2-1) mg/dl AST (15-37) U/L ALT (12-78) U/L Alkaline Phosphatase (45-117) U/L Troponin I (0-0.045) ng/ml NT-Pro-B Natriuret Pep (0-1800) pg/ml Total Protein (6.4-8.2) gm/dl Albumin (3.4-5.0) gm/dl Globulin (2.5-4.0) gm/dl Albumin/Globulin Ratio (0.9-2) COVID-19 Eval Order Covid19 at [facility] SARS-CoV-2 (PCR) NEGATIVE (Negative) Imaging Data My Impression: X-ray: I interpreted the following studies. Chest: A single view study of the chest was reviewed and was negative for cardiomegaly, focal infiltrate, effusion, acute pulmonary edema, or wide mediastinum. ECG Data Attestation: I personally reviewed and interpreted this ECG as follows: Indication: + SOB/dyspnea Rate (beats per minute): 50 Rhythm: + sinus bradycardia ECG Intervals/blocks: + First degree AV block ECG [place]: + Left axis deviation ECG ST segments: + Nonspecific ST abnormalities MDM Narrative This is an ill-appearing 75-year-old female presents due to concern for increased shortness of breath. Patient placed on oxygen by EMS. Patient does have history of both COPD as well as congestive heart failure. Patient also relates chronic kidney problems. Patient states she takes warfarin daily, uses daily MDI and nebulizer treatments, she also use of a diuretic daily. Patient was found to have bilateral wheezing on initial exam although did report increased weight gain and lower extremity edema. Patient was given a nebulizer treatment initially and was improved. Patient was found to have several lab abnormalities including a lower H&H compared to baseline, mildly elevated creatinine despite a history of chronic kidney disease, as well as an elevated BNP more suggestive of her volume overload status. Patient was otherwise afebrile, no obvious pneumonia noted on chest x-ray. Due to patient's ongoing anticoagulation I do not suspect underlying PE. Case discussed with hospitalist for additional evaluation and management given likely multifactorial reasons for her dyspnea on presentation. An order was placed for continuous cardiac monitoring. The monitor shows a rate of _70 with _normal sinus rhythm. 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, Obesity, Chronic anemia, CHF (congestive heart failure), Thrombocytopenia Patient Disposition: Admitted As Inpatient Discharge Instructions Interventions: ED Discharge Assessment Last Done: 03/08/21 00:20 Discharge Problem: Dyspnea Qualifiers: Dyspnea type: shortness of breath Qualified Code(s): R06.02 - Shortness of breath Obesity Qualifiers: Obesity type: unspecified obesity type Obesity classification: unspecified obesity classification Serious obesity comorbidity presence: unspecified whether serious comorbidity present Qualified Code(s): E66.9 - Obesity, unspecified CHF (congestive heart failure) Qualifiers: Heart failure type: combined systolic and diastolic Heart failure chronicity: acute on chronic Qualified Code(s): I50.43 - Acute on chronic combined systolic (congestive) and diastolic (congestive) heart failure
[2021-03-07 18:56] LABS: Basophils # (auto) 0.01 K/uL (0-0.2); Basophils % (auto) 0.2 %; Eosinophils # (auto) 0.17 K/uL (0-0.5); Eosinophils % (auto) 2.9 %; Hematocrit (blood only) 27.5 % (37-47); Hemoglobin 8.5 g/dL (12.0-16.0); Immature Granulocytes # (auto) 0.03 K/uL (0.00-0.02); Immature Granulocytes % (auto) 0.5 %; Lymphocytes # (auto) 0.62 K/uL (1.2-3.4); Lymphocytes % (auto) 10.5 %; Mean Corpuscular Hemoglobin 26.2 pg (25-34); Mean Corpuscular Hgb Conc 30.9 g/dL (32-36); Mean Corpuscular Volume 84.6 fL (80-100); Mean Platelet Volume 10.8 fL (7.4-10.4); Monocytes # (auto) 0.45 K/uL (0.11-0.59); Monocytes % (auto) 7.6 %; Neutrophils # (auto) 4.63 K/uL (1.4-6.5); Neutrophils % (auto) 78.3 %; Platelet Count 104 K/uL (130-400); RDW Coefficient of Variation 16.4 % (11.5-14.5); RDW Standard Deviation 51.1 fL (36.4-46.3); Red Blood Count 3.25 M/uL (4.2-5.4); White Blood Count 5.91 K/uL (4.8-10.8)
--- NOTE | 2021-03-07 19:04 | XRay Report ---
XR chest 1V portable HISTORY: Shortness of breath. COMPARISON: Chest 01/22/2021. FINDINGS: Cardiac silhouette remains moderately enlarged. No pneumothorax. No pleural effusions. Diff use interstitial/vascular thickening suggestive of mild congestive change. This is similar to the doug or study. IMPRESSION: No change in the cardiomegaly and mild pulmonary vascular congestion. ACT 112: Negative or not required by law. Electronically signed by: Jung Jimenez M.D. 03/07/2021 7:02 PM
[2021-03-07 19:16] LABS: Albumin Level 3.1 gm/dl (3.4-5.0); BUN Creatinine Ratio 36.5 (10-20); Calcium 9.4 mg/dl (8.5-10.1); Creatinine Clr Calc Pharmacy 23.4 ml/min; Est GFR (African American) 21.9 ml/min; Est GFR (Non-African American) 18.9 ml/min; Magnesium 2.8 mg/dl (1.8-2.4); Potassium 4.1 mmol/L (3.5-5.1)
[2021-03-07 19:18] LABS: INR 4.7 (0.9-1.1); Prothrombin Time 41.8 Seconds (9.0-12.0)
[2021-03-07 19:21] LABS: Albumin Globulin Ratio 0.8 (0.9-2); Bilirubin,Total 0.4 mg/dl (0.2-1); Globulin 3.9 gm/dl (2.5-4.0); Troponin I 0.015 ng/ml (0-0.045)
--- NOTE | 2021-03-07 21:58 | History & Physical Report ---
Date of Service March 07, 2021 Assessment & Plan (1) Acute on chronic heart failure with preserved ejection fraction (HFpEF): Acute on chronic HFpEF/CAD/PAF/hypertension/supratherapeutic INR- The patient will be admitted to telemetry for serial cardiac enzymes, serial EKG's, cardiac rhythm monitoring and a 2-D echocardiogram with Dopplers. Hold oral bumetanide 3 mg p.o. twice daily Placed on bumetanide 2 mg IV twice daily, with first dose this evening Continue isosorbide mononitrate 30 mg 3 times daily, Toprol tartrate 25 mg every morning, nitroglycerin sublingual as needed, potassium chloride 20 mEq p.o. daily Hold warfarin for INR of 4.7. Follow daily CBC with differential, chemistry profile, PT/INR/PTT and magnesium Present on Admission?: Yes (2) Paroxysmal atrial fibrillation: See above Present on Admission?: Yes (3) Stenosis of trachea: Tracheal stenosis/subglottic stenosis- Status post recent procedure at [facility]. 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 Mondragon Present on Admission?: Yes (9) SGS (subglottic stenosis): See above Present on Admission?: Yes (10) CKD (chronic kidney disease), stage IV: Creatinine 2.39 upon admission, with range 1.9 to-2.62. Estimated creatinine clearance 23.4, with range 21.7-30.3 Follow labs serially. Her skin tanner is Dr. Mckay Present on Admission?: Yes (11) GERD without esophagitis: Continue pantoprazole and metoclopramide Present on Admission?: Yes (12) Hypothyroidism: Continue levothyroxine 88 mcg daily Present on Admission?: Yes (13) Diabetic peripheral neuropathy: (14) Dyslipidemia: Continue fenofibric acid and simvastatin/Zetia Present on Admission?: Yes History of Present Illness Chief Complaint: The patient presents to the emergency department with worsening shortness of breath over the past few days. Primary Care Provider: Alfred Mckeon, III, MARGY The patient is a 75-year-old female with a past medical history including diabetic peripheral neuropathy, tracheal stenosis, PAF, pressure ulcer, uncontrolled diabetes mellitus type 2, long-term use of anticoagulants, allergic rhinitis, asthma, depression, dyslipidemia, hypertension, GERD, lichen sclerosis, left thyroid nodule, obesity, TAMMIE, subglottal stenosis, chronic venous insufficiency, CKD stage IV, HFpEF and hypothyroidism. Patient presents to the emergency department with worsening shortness of breath and dyspnea on exertion at shorter and shorter distances. She did undergo a procedure recently at [facility] for tracheal stenosis. Work-up in the emergency department included the following significant abnormalities: Hemoglobin 8.5, hematocrit 27.5, creatinine 2.39, glucose 242, BUN 87, INR 1.47, AST 121, ALT 91, albumin 3.1 and BNP 1990. The patient was COVID-19 negative this evening. Chest x-ray showed pulmonary vascular congestion. Allergies Allergy/AdvReac Type Severity Reaction Status Date / Time clarithromycin Allergy Intermediate RASH AND Verified 03/07/21 18:56 ITCHING Home Medications Medication Instructions Recorded Confirmed Type nitroglycerin [Nitrostat] 0.4 mg UT UD PRN #0 09/28/09 03/07/21 History cranberry fruit concentrate 250 mg 500 mg PO QDL tab 08/20/18 03/07/21 History chewable tablet docusate sodium 100 mg capsule 100 mg PO QID cap 05/10/19 03/07/21 History fexofenadine 180 mg tablet 180 mg PO QAM tab 05/10/19 03/07/21 History lancets 33 gauge #100 ea 05/10/19 01/26/21 History azelastine 137 mcg (0.1 %) nasal 2 sprays INTNAS BID #90 ml 10/28/19 03/07/21 Rx spray aerosol terconazole 0.4 % vaginal cream 1 appl PV DAILY PRN #45 gm 04/26/20 03/07/21 Rx blood sugar diagnostic #400 ea 07/07/20 01/26/21 Rx pantoprazole 40 mg tablet,delayed 40 mg PO DAILY #90 tab 08/15/20 03/07/21 Rx release potassium chloride 20 mEq 20 meq PO DAILY #90 tab 09/20/20 03/07/21 Rx tablet,extended release(part/cryst) metoclopramide HCl 10 mg tablet 10 mg PO QPM #90 tab 09/26/20 03/07/21 Rx metoprolol tartrate 25 mg tablet 25 mg PO QAM #90 tab 10/03/20 03/07/21 Rx fenofibric acid (choline) 135 mg 135 mg PO QAM #90 cap 10/26/20 03/07/21 Rx capsule,delayed release duloxetine 30 mg capsule,delayed 30 mg PO QAM #90 cap 12/06/20 03/07/21 Rx release desonide 0.05 % topical cream 1 applic TOPICAL BID #60 g 12/18/20 03/07/21 Rx allopurinol 100 mg tablet 100 mg PO QAM #90 tab 12/21/20 03/07/21 Rx bumetanide 2 mg tablet 3 mg PO BID 90 Days #180 tab 01/08/21 03/07/21 Rx calcitriol 0.5 mcg capsule 0.5 mcg PO DAILY #90 cap 01/08/21 03/07/21 Rx insulin aspart U-100 100 unit/mL 3 - 6 unit SUBCUT ACHS ml 01/22/21 03/07/21 History (3 mL) subcutaneous pen isosorbide mononitrate 30 mg 30 mg PO TID #270 tab 01/25/21 03/07/21 Rx tablet,extended release 24 hr pen needle, diabetic 31 gauge x #500 ea 01/29/21 Rx 3/16" Xopenex HFA 45 mcg/actuation 1 - 2 inh INH Q4H PRN #15 g NS 02/07/21 03/07/21 Rx aerosol inhaler insulin glargine 100 unit/mL (3 45 unit SC BID ml 02/20/21 03/07/21 History mL) subcutaneous pen ipratropium 0.5 mg-albuterol 3 mg 3 ml INHALATION QID PRN #90 ml 02/20/21 03/07/21 Rx (2.5 mg base)/3 mL nebulization soln ezetimibe 10 mg-simvastatin 40 mg 1 tab PO HS #90 tab 02/26/21 03/07/21 Rx tablet clonazepam 0.5 mg tablet 0.5 mg PO HS #30 tab 03/01/21 03/07/21 Rx levothyroxine 88 mcg tablet 88 mcg PO DAILY #30 tab 03/05/21 03/07/21 Rx ergocalciferol (vitamin D2) 1,250 50,000 unit PO Q14D #6 cap 03/06/21 03/07/21 Rx mcg (50,000 unit) capsule betamethasone dipropionate 1 applic TOPICAL Q OTHER DAY PRN 03/07/21 03/07/21 History warfarin 5 mg PO DIRECTED 03/07/21 03/07/21 History Past Med/Surg History Medical History Acute osteomyelitis Cataract CHF (congestive heart failure) Constipation Decubitus ulcer Diabetic foot ulcer Encounter for health maintenance examination Gastric ulcer Gastroparesis Gout, joint Herpes zoster Hiatal hernia Influenza A Pneumonia Stasis ulcer Stenosis of trachea Vaginitis Surgical History H/O adenoidectomy H/O hand surgery H/O knee surgery H/O: hysterectomy Hx of salpingo-oophorectomy, bilateral S/P tonsillectomy Family History Father Emphysema, unspecified Sister Uterine cancer Ovarian cancer Other Liver cancer Denies family history of Colon cancer Pancreatic cancer Prostate cancer Myocardial infarction Breast cancer Bleeding disorder Colorectal cancer Social History Smoking Status: Never smoker Hx Alcohol Use: No Hx Substance Use: No Preferred Language: Khmer Communication Ability: Effective Visual Impairment: Limited Hearing Ability: Normal Control Clerk Required: No Beliefs That Will Affect Care: None marital status: Single Current Living Situation: Alone current occupational status: retired How many Children do You have: 0 Feels Safe at Home: Yes Childhood Exposure to Second-Hand Smoke: No Dental Care, Regularly: Yes Physical Activity Frequency: Does not Exercise Seatbelt Use: always Sunscreen Use: No Do you think of yourself as: straight/heterosexual Assistive Devices: Cane and CPAP Review of Systems Review of Systems: The patient denies chest pain, palpitations, cough, sore throat, fevers, chills, sweats, nausea, vomiting, diarrhea , constipation, abdominal pain, pelvic pain, blood in urine or stool, dysuria, urinary frequency or urgency, lightheadedness, dizziness, headache, loss of consciousness, rash, abnormal bruising or bleeding, imbalance, focal weakness, numbness or tingling in arms or legs, back or neck pain, or night sweats. The review of systems is otherwise negative other than for that already noted above, and at least 10 systems have been reviewed. Physical Exam Physical Exam: The patient is awake, alert and oriented 3, well developed and well nourished, normocephalic and atraumatic, lying in bed and in no acute distress. HEENT--PERRL, EOMI, mucous membranes and oropharynx normal. Neck--supple. No JVD. No bruits. Thyroid normal, trachea midline, no adenopathy. Heart--normal S1 and S2. No murmurs, rubs or gallops. Lungs--crackles at the bases bilaterally. No respiratory distress at rest. no accessory muscle use. Abdomen--normal bowel sounds and soft. Nontender. Nondistended. Obese Extremities--no cyanosis or clubbing. 2+ bilateral pretibial pitting edema. With vacuolization distal anterior tibial surface, right greater than left Dermatologic--chronic venous stasis of lower extremities changes bilaterally Neurologic--cranial nerves II through XII grossly intact. Rheumatologic-limited exam Psychiatric--normal affect. Results & Data Results & Data ([facility]) Vital Signs (Past 12 Hours) Vital Signs Temp Pulse Pulse Resp BP BP Pulse Ox 03/07/21 20:30 48 L 16 124/55 L 97 03/07/21 20:00 55 L 17 143/66 H 97 03/07/21 19:30 61 17 132/56 L 96 03/07/21 19:00 52 L 20 136/55 L 97 03/07/21 18:35 99.5 F 49 L 26 H 141/59 H 97 03/07/21 18:34 49 L 24 141/59 H 97 03/07/21 18:33 48 L 20 97 Laboratory Results Laboratory Results WBC 5.91 K/uL (4.8-10.8) 03/07/21 18:44 RBC 3.25 M/uL (4.2-5.4) L 03/07/21 18:44 Hgb 8.5 g/dL (12.0-16.0) L 03/07/21 18:44 Hct 27.5 % (37-47) L 03/07/21 18:44 MCV 84.6 fL (80-100) 03/07/21 18:44 MCH 26.2 pg (25-34) 03/07/21 18:44 MCHC 30.9 g/dL (32-36) L 03/07/21 18:44 RDW Std Deviation 51.1 fL (36.4-46.3) H 03/07/21 18:44 RDW Coeff of Melonie 16.4 % (11.5-14.5) H 03/07/21 18:44 Plt Count 104 K/uL (130-400) L 03/07/21 18:44 MPV 10.8 fL (7.4-10.4) H 03/07/21 18:44 Immature Gran % (Auto) 0.5 % 03/07/21 18:44 Neut % (Auto) 78.3 % 03/07/21 18:44 Lymph % (Auto) 10.5 % 03/07/21 18:44 [place] % (Auto) 7.6 % 03/07/21 18:44 Eos % (Auto) 2.9 % 03/07/21 18:44 Baso % (Auto) 0.2 % 03/07/21 18:44 Neut # (Auto) 4.63 K/uL (1.4-6.5) 03/07/21 18:44 Lymph # (Auto) 0.62 K/uL (1.2-3.4) L 03/07/21 18:44 [place] # (Auto) 0.45 K/uL (0.11-0.59) 03/07/21 18:44 Eos # (Auto) 0.17 K/uL (0-0.5) 03/07/21 18:44 Baso # (Auto) 0.01 K/uL (0-0.2) 03/07/21 18:44 Immature Gran # (Auto) 0.03 K/uL (0.00-0.02) H 03/07/21 18:44 PT 41.8 Seconds (9.0-12.0) H 03/07/21 18:44 INR 4.7 (0.9-1.1) H 03/07/21 18:44 Sodium 140 mmol/L (136-145) 03/07/21 18:44 Potassium 4.1 mmol/L (3.5-5.1) 03/07/21 18:44 Chloride 106 mmol/L (98-107) 03/07/21 18:44 Carbon Dioxide 30 mmol/L (21-32) 03/07/21 18:44 Anion Gap 4.0 (3-11) 03/07/21 18:44 BUN 87 mg/dl (7-18) H 03/07/21 18:44 Creatinine 2.39 mg/dl (0.6-1.2) H 03/07/21 18:44 Est Cr Clr Drug Dosing 23.4 ml/min 03/07/21 18:44 Est GFR ( Amer) 21.9 ml/min 03/07/21 18:44 Est GFR (Non-Af Amer) 18.9 ml/min 03/07/21 18:44 BUN/Creatinine Ratio 36.5 (10-20) H 03/07/21 18:44 Glucose 242 mg/dl (70-99) H 03/07/21 18:44 Calcium 9.4 mg/dl (8.5-10.1) 03/07/21 18:44 Magnesium 2.8 mg/dl (1.8-2.4) H 03/07/21 18:44 Total Bilirubin 0.4 mg/dl (0.2-1) 03/07/21 18:44 AST 121 U/L (15-37) H 03/07/21 18:44 ALT 91 U/L (12-78) H 03/07/21 18:44 Alkaline Phosphatase 53 U/L (45-117) 03/07/21 18:44 Troponin I 0.015 ng/ml (0-0.045) 03/07/21 18:44 NT-Pro-B Natriuret Pep 1990 pg/ml (0-1800) H 03/07/21 18:44 Total Protein 7.0 gm/dl (6.4-8.2) 03/07/21 18:44 Albumin 3.1 gm/dl (3.4-5.0) L 03/07/21 18:44 Globulin 3.9 gm/dl (2.5-4.0) 03/07/21 18:44 Albumin/Globulin Ratio 0.8 (0.9-2) L 03/07/21 18:44 COVID-19 Eval Order Covid19 at [facility] 03/07/21 21:40 SARS-CoV-2 (PCR) NEGATIVE (Negative) 03/07/21 21:40 Impressions Chest X-Ray 03/07/21 18:19 XR chest 1V portable HISTORY: Shortness of breath. COMPARISON: Chest 01/22/2021. FINDINGS: Cardiac silhouette remains moderately enlarged. No pneumothorax. No pleural effusions. Diffuse interstitial/vascular thickening suggestive of mild congestive change. This is similar to the prior study. IMPRESSION: No change in the cardiomegaly and mild pulmonary vascular congestion. ACT 112: Negative or not required by law. Electronically signed by: Jung Jimenez M.D. 03/07/2021 7:02 PM Code Status & VTE Plan Code Status DNR/DNI VTE Prophylaxis Plan VTE Prophylaxis will be ordered: Yes PG Care Time/CCT Total # of Minutes Spent Total Time Spent with Patient: Total time spent is greater than 50% in coordination of care (as documented) at patient's floor/unit and/or counseling patient: Coding Level of Care Code 51089 Initial Inpt Care Lvl 3 Diagnoses Acute on chronic heart failure with preserved ejection fraction (HFpEF) I50.33 Paroxysmal atrial fibrillation I48.0 Stenosis of trachea J39.8 Diabetes type 2, uncontrolled E11.65 Glycemic state: with hyperglycemia Asthma J45.40 Asthma severity: moderate Asthma persistence: persistent Asthma complication type: uncomplicated Depression F32.9 Depression Type: major depressive disorder Major depression recurrence: unspecified whether recurrent Active/Remission status: remission status unspecified Essential hypertension I10 Obstructive sleep apnea of adult G47.33 SGS (subglottic stenosis) J38.6 CKD (chronic kidney disease), stage IV N18.4 GERD without esophagitis K21.9 Hypothyroidism E03.9 Hypothyroidism type: unspecified Diabetic peripheral neuropathy E11.42 Dyslipidemia E78.5 (1) Diabetes type 2, uncontrolled Glycemic state: with hyperglycemia Qualified Code(s): E11.65 - Type 2 diabetes mellitus with hyperglycemia (2) Asthma Asthma severity: moderate Asthma persistence: persistent Asthma complication type: uncomplicated Qualified Code(s): J45.40 - Moderate persistent asthma, uncomplicated (3) Depression Depression Type: major depressive disorder Major depression recurrence: unspecified whether recurrent Active/Remission status: remission status unspecified Qualified Code(s): F32.9 - Major depressive disorder, single episode, unspecified (4) Hypothyroidism Hypothyroidism type: unspecified Qualified Code(s): E03.9 - Hypothyroidism, unspecified
[2021-03-07] MEDS ORDERED: BUMETANIDE 2 MG in SYRINGE 0 ML IV ONE (22:15)
[2021-03-08] MEDS ORDERED: GLUCOSE 10 TABS/TUBE PO PRN (00:48)
[2021-03-08] MEDS ORDERED: GLUCOSE 40% GEL 15 GM TUBE PO PRN (00:48)
[2021-03-08] MEDS ORDERED: ONDANSETRON INJ 2 MG/ML 2 ML VIAL IV PRN (00:48)
[2021-03-08] MEDS ORDERED: ALBUT/IPRATROP 3MG/0.5MG NEB 3 ML VIAL INH PRN (00:48)
[2021-03-08] MEDS ORDERED: GLUCAGON FOR INJ 1 MG VIAL SQ PRN (00:48)
[2021-03-08] MEDS ORDERED: DEXTROSE 50% 50 ML SYRINGE IV PRN (00:48)
[2021-03-08] MEDS ORDERED: NITROGLYCERIN SL 0.4 MG/TAB TAB SL PRN (00:48)
[2021-03-08] MEDS ORDERED: ALBUT/IPRATROP 3MG/0.5MG NEB 3 ML VIAL NEB PRN (00:49)
[2021-03-08] MEDS: INSULIN GLARGINE SOLOSTAR 100 UNITS/ML 3 ML PEN SC SCH ×3 (02:02→21:06)
[2021-03-08] MEDS ORDERED: BETAMETHASONE DIP AUG (DIPROLENE) 0.05% CR 15 GM TUBE EXT PRN (03:45)
[2021-03-08] MEDS: LEVOTHYROXINE SODIUM 88 MCG TABLET PO SCH (04:44)
[2021-03-08 07:16] LABS: Basophils # (auto) 0.01 K/uL (0-0.2); Basophils % (auto) 0.1 %; Eosinophils # (auto) 0.26 K/uL (0-0.5); Hematocrit (blood only) 28.2 % (37-47); Hemoglobin 8.8 g/dL (12.0-16.0); Immature Granulocytes # (auto) 0.04 K/uL (0.00-0.02); Immature Granulocytes % (auto) 0.5 %; Lymphocytes # (auto) 0.65 K/uL (1.2-3.4); Lymphocytes % (auto) 7.5 %; Mean Corpuscular Hemoglobin 26.4 pg (25-34); Mean Corpuscular Hgb Conc 31.2 g/dL (32-36); Mean Corpuscular Volume 84.7 fL (80-100); Mean Platelet Volume 11.5 fL (7.4-10.4); Monocytes # (auto) 0.69 K/uL (0.11-0.59); Monocytes % (auto) 7.9 %; Neutrophils # (auto) 7.05 K/uL (1.4-6.5); Platelet Count 117 K/uL (130-400); RDW Coefficient of Variation 16.5 % (11.5-14.5); RDW Standard Deviation 50.4 fL (36.4-46.3); Red Blood Count 3.33 M/uL (4.2-5.4)
[2021-03-08 07:39] LABS: Partial Thromboplastin Ratio 1.9; Prothrombin Time 44.6 Seconds (9.0-12.0)
[2021-03-08 07:47] LABS: Albumin Level 3.1 gm/dl (3.4-5.0); Calcium 9.1 mg/dl (8.5-10.1); Creatinine Clr Calc Pharmacy 22.5 ml/min; Est GFR (African American) 21.1 ml/min; Est GFR (Non-African American) 18.2 ml/min; Magnesium 2.7 mg/dl (1.8-2.4); Potassium 4.1 mmol/L (3.5-5.1)
[2021-03-08] MEDS: ACETAMINOPHEN 325 MG TAB PO PRN (07:49)
[2021-03-08 07:52] LABS: Albumin Globulin Ratio 0.8 (0.9-2); Bilirubin,Total 0.4 mg/dl (0.2-1); Globulin 3.8 gm/dl (2.5-4.0); Total Protein 6.9 gm/dl (6.4-8.2); Troponin I 0.019 ng/ml (0-0.045)
[2021-03-08] MEDS: DOCUSATE SODIUM 100 MG CAP PO SCH ×4 (07:52→20:12)
[2021-03-08] MEDS: allopurinoL 100 MG TAB PO SCH (07:52)
[2021-03-08] MEDS: CALCITRIOL 0.25 MCG CAPSULE PO SCH (07:52)
[2021-03-08] MEDS: DULoxetine HCL 30 MG CAP PO SCH (07:52)
[2021-03-08] MEDS: POTASSIUM CHLORIDE CRTAB 20 MEQ TABCR PO SCH (07:53)
[2021-03-08] MEDS: ISOSORBIDE MONO EXTENDED REL 30 MG TABCR PO SCH ×3 (07:53→20:14)
[2021-03-08] MEDS: METOPROLOL TARTRATE 25 MG TAB PO SCH (07:53)
[2021-03-08] MEDS: FEXOFENADINE HCL 180 MG TAB PO SCH (07:53)
[2021-03-08] MEDS: PANTOprazole 40 MG TAB PO SCH (07:53)
[2021-03-08] MEDS: ASTELIN - ORDER AWAITING ACTION SCH ×3 (07:54→23:03)
[2021-03-08] MEDS: INSULIN ASPART 100 UNITS/ML 3 ML PEN SC SCH ×4 (07:55→21:05)
[2021-03-08 08:01] LABS: Estimated Average Glucose 140 mg/dl; Hemoglobin A1C 6.5 % (4.5-5.6)
[2021-03-08 08:17] LABS: Partial Thromboplastin Time 50.1 Seconds (21.0-31.0)
[2021-03-08] MEDS ORDERED: BUMETANIDE 2 MG in SYRINGE 0 ML IV SCH (09:00)
[2021-03-08] MEDS: CARBOHYDRATES FOR HYPOGLYCEMIA PO PRN (11:25)
[2021-03-08] MEDS ORDERED: NON-FORMULARY MEDICATION (Cranberry Fruit Concentrate [Azo Cranberry] 250 mg tablet,chewab PO SCH (11:30)
--- NOTE | 2021-03-08 14:09 | Hospitalist Progress Note ---
Date of Service March 08, 2021 Assessment & Plan (1) Acute on chronic heart failure with preserved ejection fraction (HFpEF): Acute on chronic HFpEF/CAD/PAF/hypertension/supratherapeutic INR- The patient will be admitted to telemetry for serial cardiac enzymes, serial EKG's, cardiac rhythm monitoring and a 2-D echocardiogram with Dopplers. Hold oral bumetanide 3 mg p.o. twice daily Increase Bumex to 4 mg IV twice daily. Continue isosorbide mononitrate 30 mg 3 times daily, Toprol tartrate 25 mg every morning, nitroglycerin sublingual as needed, potassium chloride 20 mEq p.o. daily Hold warfarin for INR of 5.0. Follow daily CBC with differential, chemistry profile, PT/INR/PTT and magnesium (2) Paroxysmal atrial fibrillation: See above (3) Stenosis of trachea: Tracheal stenosis/subglottic stenosis- Status post recent procedure at [facility]. Treatment by Dr Mondragon in January in addition without significant change. Consult pulmonology given food getting stuck in throat she feels this is getting worse. (4) Diabetes type 2, uncontrolled: Hemoglobin A1c 8.8. Consult pharmacy for glycemic control with basal bolus insulin. Hypoglycemia today due to reduced oral intake. (5) Asthma: Hold Xopenex HFA DuoNeb every 2 hours as needed No acute exacerbation suspected with noted wheezing on exam. (6) Depression: Continue duloxetine 30 mg daily (7) Essential hypertension: See above (8) Obstructive sleep apnea of adult: CPAP at bedtime and as needed Her quality assurance specialist Dr. Mondragon (9) SGS (subglottic stenosis): See above (10) CKD (chronic kidney disease), stage IV: Creatinine 2.39 upon admission, with range 1.9 to-2.62. Estimated creatinine clearance 23.4, with range 21.7-30.3 Follow labs serially. Consult nephrology to aid with volume management in setting of CKD (11) GERD without esophagitis: Continue pantoprazole and metoclopramide (12) Hypothyroidism: Continue levothyroxine 88 mcg daily (13) Diabetic peripheral neuropathy: (14) Dyslipidemia: Continue fenofibric acid and simvastatin/Zetia (15) Oropharyngeal dysphagia: NPO Consult SLT for possible need for swallow study - feels food getting stuck in throat. (16) Elevated liver transaminase level: ? venous congestion, will continue to trend Admission and Anticipated Discharge Date Admission Date: March 07, 2021 Subjective Generally feeling unwell with shortness of breath. No chest pain, abdominal pain, constipation, diarrhea, melena, bright red blood in stool. She does note multiple nosebleeds. No significant improvement since admission. COVID vaccine one month ago Increased weight over the last 4 months Increased shortness of breath over last month No noticeable change with subglottic stenosis treatment performed by Dr Mondragon in January Feeling food getting stuck in the back of her throat Review of Systems Review of Systems: All systems reviewed & are unremarkable except as noted in HPI & below Physical Exam Constitutional: + ill appearing and + morbidly obese; no acute distress Eyes: PERRL, conjunctivae normal, anicteric sclerae ENMT: external ear and nose normal, oropharynx normal Respiratory: normal respiratory effort; no respiratory distress Auscultation: + diminished lung sounds and + wheezes (Mild expiratory wheeze anteriorly); no crackles and no rales Cardiovascular: Rate/Rhythm: regular rate and regular rhythm Heart Sounds: no murmur Vessels: no JVD (Large neck size) Extremities: normal capillary refill and + pedal edema (2+ equal b/l) Gastrointestinal (Abdomen): normal bowel sounds, soft, nontender, no hepatosplenomegaly Musculoskeletal: no cyanosis or clubbing, extremities motor strength 5/5 Skin: no rashes, warm and dry Neurologic: moves all extremities and awake; not confused Psychiatric: A+Ox3, euthymic affect Results & Data Results & Data ([facility]) Vital Signs (Past 12 Hours) Vital Signs Temp Pulse Pulse Resp BP Pulse Ox 03/08/21 11:26 37.2 C 67 19 135/54 L 97 03/08/21 07:17 37.4 C 88 19 117/60 95 03/08/21 04:29 36.5 C 74 18 125/67 98 03/08/21 04:28 78 03/08/21 02:30 36.3 C L PG Care Time/CCT Total # of Minutes Spent Total Time Spent with Patient: Total time spent is greater than 50% in coordination of care (as documented) at patient's floor/unit and/or counseling patient: Coding Level of Care Code 14598 Subseq Hosp Care Lvl 3 Diagnoses Acute on chronic heart failure with preserved ejection fraction (HFpEF) I50.33 Paroxysmal atrial fibrillation I48.0 Stenosis of trachea J39.8 Diabetes type 2, uncontrolled E11.65 Glycemic state: with hyperglycemia Asthma J45.40 Asthma complication type: uncomplicated Asthma persistence: persistent Asthma severity: moderate Depression F32.9 Active/Remission status: remission status unspecified Depression Type: major depressive disorder Major depression recurrence: unspecified whether recurrent Essential hypertension I10 Obstructive sleep apnea of adult G47.33 SGS (subglottic stenosis) J38.6 CKD (chronic kidney disease), stage IV N18.4 GERD without esophagitis K21.9 Hypothyroidism E03.9 Hypothyroidism type: unspecified Diabetic peripheral neuropathy E11.42 Dyslipidemia E78.5 Oropharyngeal dysphagia R13.12 Elevated liver transaminase level R74.01 (1) Depression Active/Remission status: remission status unspecified Depression Type: major depressive disorder Major depression recurrence: unspecified whether recurrent Qualified Code(s): F32.9 - Major depressive disorder, single episode, unspecified (2) Hypothyroidism Hypothyroidism type: unspecified Qualified Code(s): E03.9 - Hypothyroidism, unspecified (3) Diabetes type 2, uncontrolled Glycemic state: with hyperglycemia Qualified Code(s): E11.65 - Type 2 diabetes mellitus with hyperglycemia (4) Asthma Asthma complication type: uncomplicated Asthma persistence: persistent Asthma severity: moderate Qualified Code(s): J45.40 - Moderate persistent asthma, uncomplicated
[2021-03-08] MEDS ORDERED: PHARMACY GLYCEMIC MGMT CONSULT PRN (14:21)
--- NOTE | 2021-03-08 14:39 | Pharmacy Report ---
Pharmacy Glycemic Short Note 2 - Date of Service March 08, 2021 - Glycemic Short BSG Results (Last 24 hours): 03/07/21 03/08/21 03/08/21 18:44 00:42 06:31 Glucose 242 H 126 H POC Glucose 112 H 03/08/21 03/08/21 03/08/21 07:37 11:19 11:20 Glucose POC Glucose 119 H 65 L* 69 L* 03/08/21 11:41 Glucose POC Glucose 82 OUTPATIENT ANTIDIABETIC REGIMEN: * Insulin glargine (Basaglar) 45 units SQ BID * NovoLog 3-6 units SQ with meals * A1c = 6.5% on 03/08/21 ASSESSMENT: * 75yo T2DM female with excellent outpatient control per recent A1c * Pt with LOW BSG today secondary to too much basal insulin on board * Outpatient regimen is heavily weighted towards basal insulin (basal insulin = 90 units; bolus insulin max 18 units) indicating that basal insulin is covering some prandial requirements. * Pt with LOW BSG when outpatient basal insulin continued with NPO status * Will adjust/decrease insulin regimen for NPO and continue to titrate based on BSG trends. PLAN FOR INPATIENT GLYCEMIC CONTROL: * Basal insulin: dose based on BSG tonight - will further adjust dosing tomorrow if needed * Lantus SQ BID - dose based on BSG * BSG below 110 --> 0 units * BSG 110-140 --> 10 units (~1/4 outpatient dose) * BSG 141-180 --> 20 units (~1/2 outpatient dose) * BSG above 180 --> 30 units (~2/3% outpatient dose) * Bolus insulin * NovoLog per scale ACHS or Q6hrs while NPO * Goal Range: Low 110 mg/dL - High 140 mg/dL * Correction Factor: 20 mg/dL/unit * Nutritional / Prandial insulin per carb ratio of 1 unit per 7 grams CHO consumed PLAN FOR DISCHARGE: * TBD; likely no changes needed based on A1c unless patient is experiencing hypoglycemia as an outpatient.
--- NOTE | 2021-03-08 14:58 | Nephrology Consultation ---
Date of Consultation March 08, 2021 Assessment & Plan (1) CKD (chronic kidney disease), stage IV: 75 y o F with stage IV CKD, diastolic dysfunction, admitted with progressive SOB with volume overload >8 lbs above her EDW. Has been on high dose diuretics for cardiorenal syndrome with diastolic dysfunction. --agree with increasing Bumex to 4 mg IV BID, aim for net negative 0.5 to 1 L/d --monitor renal function, Mg, Phos --check iron study, may need venofer or KATHERINE --continue Calcitriol --high risk for Worsening renal function and electrolyte considering underlying advanced CKD --avoid nephrotoxic meds, dose meds for GFR <30, left arm nephrology precaution Will follow. Thank you for the consult. (2) Essential hypertension: (3) Acute on chronic heart failure with preserved ejection fraction (HFpEF): (4) Chronic anemia: (5) Secondary hyperparathyroidism of renal origin: History of Present Illness Reason for Consultation: Advanced CKD, volume overload. Attending Physician: Eligio Valencia MD History of Present Illness Beverley Baer is a 75-year-old female with PMH significant for stage IV CKD, hypertension, diabetes, obesity, TAMMIE admitted to the hospital with progressive shortness of breath and volume overload. Nephrology consult requested for diuretic and management in the setting of advanced CKD. EMR records are reviewed in detail during patient's visit. Beverley presented to ER yesterday with progressive shortness of breath with minimum exertion and activity. She has been on a Bumex 3 mg twice a day which was recently increased. Chest x-ray on admission showed mild pulmonary vascular congestion and cardiomyopathy. Denies dietary changes, increased fluid intake or high salt diet. Admission lab showed Hemoglobin 8.5, creatinine 2.39, glucose 242, BUN 87, INR 1.47, AST 121, ALT 91, albumin 3.1 and BNP 1989. She is now on Bumex IV 2 mg twice a day. Urine output is unmeasured however her weight staying relatively stable, her baseline weight around 250lbs but increased to 258 lbs oevr last few days at home . No fever, chills, chest pain. She has history of subglottic stenosis and underwent a procedure recently at [facility] for tracheal stenosis. Has stage CKD class IV A3 associated with vascular disease, diabetes mellitus as well as a history of SABINO which has been progressively worsening over last found to 2 years, cr has been slightly variable around 2.3-2.5 mg/dL over last 1-2 years in the setting of high-dose diuretics requirement. Not on ACEI/ARB due to prior SABINO. Past medical history also significant for uncontrolled type 2 diabetes, hypertension, dyslipidemia, GERD, chronic venous insufficiency and HFpEF. She continues to have some SOB but noticed slight improvement since admission, has persistent LE edema. Allergies Allergy/AdvReac Type Severity Reaction Status Date / Time clarithromycin Allergy Intermediate RASH AND Verified 03/07/21 18:56 ITCHING Home Medications Medication Instructions Recorded Confirmed Type nitroglycerin [Nitrostat] 0.4 mg UT UD PRN #0 09/28/09 03/07/21 History cranberry fruit concentrate 250 mg 500 mg PO QDL tab 08/20/18 03/07/21 History chewable tablet docusate sodium 100 mg capsule 100 mg PO QID cap 05/10/19 03/07/21 History fexofenadine 180 mg tablet 180 mg PO QAM tab 05/10/19 03/07/21 History lancets 33 gauge #100 ea 05/10/19 01/26/21 History azelastine 137 mcg (0.1 %) nasal 2 sprays INTNAS BID #90 ml 10/28/19 03/07/21 Rx spray aerosol terconazole 0.4 % vaginal cream 1 appl PV DAILY PRN #45 gm 04/26/20 03/07/21 Rx blood sugar diagnostic #400 ea 07/07/20 01/26/21 Rx pantoprazole 40 mg tablet,delayed 40 mg PO DAILY #90 tab 08/15/20 03/07/21 Rx release potassium chloride 20 mEq 20 meq PO DAILY #90 tab 09/20/20 03/07/21 Rx tablet,extended release(part/cryst) metoclopramide HCl 10 mg tablet 10 mg PO QPM #90 tab 09/26/20 03/07/21 Rx metoprolol tartrate 25 mg tablet 25 mg PO QAM #90 tab 10/03/20 03/07/21 Rx fenofibric acid (choline) 135 mg 135 mg PO QAM #90 cap 10/26/20 03/07/21 Rx capsule,delayed release duloxetine 30 mg capsule,delayed 30 mg PO QAM #90 cap 12/06/20 03/07/21 Rx release desonide 0.05 % topical cream 1 applic TOPICAL BID #60 g 12/18/20 03/07/21 Rx allopurinol 100 mg tablet 100 mg PO QAM #90 tab 12/21/20 03/07/21 Rx bumetanide 2 mg tablet 3 mg PO BID 90 Days #180 tab 01/08/21 03/07/21 Rx calcitriol 0.5 mcg capsule 0.5 mcg PO DAILY #90 cap 01/08/21 03/07/21 Rx insulin aspart U-100 100 unit/mL 3 - 6 unit SUBCUT ACHS ml 01/22/21 03/07/21 History (3 mL) subcutaneous pen isosorbide mononitrate 30 mg 30 mg PO TID #270 tab 01/25/21 03/07/21 Rx tablet,extended release 24 hr pen needle, diabetic 31 gauge x #500 ea 01/29/21 Rx 3/16" Xopenex HFA 45 mcg/actuation 1 - 2 inh INH Q4H PRN #15 g NS 02/07/21 03/07/21 Rx aerosol inhaler insulin glargine 100 unit/mL (3 45 unit SC BID ml 02/20/21 03/07/21 History mL) subcutaneous pen ipratropium 0.5 mg-albuterol 3 mg 3 ml INHALATION QID PRN #90 ml 02/20/21 03/07/21 Rx (2.5 mg base)/3 mL nebulization soln ezetimibe 10 mg-simvastatin 40 mg 1 tab PO HS #90 tab 02/26/21 03/07/21 Rx tablet clonazepam 0.5 mg tablet 0.5 mg PO HS #30 tab 03/01/21 03/07/21 Rx levothyroxine 88 mcg tablet 88 mcg PO DAILY #30 tab 03/05/21 03/07/21 Rx ergocalciferol (vitamin D2) 1,250 50,000 unit PO Q14D #6 cap 03/06/21 03/07/21 Rx mcg (50,000 unit) capsule betamethasone dipropionate 1 applic TOPICAL Q OTHER DAY PRN 03/07/21 03/07/21 History warfarin 5 mg PO DIRECTED 03/07/21 03/07/21 History Patient History Medical History Acute osteomyelitis Cataract CHF (congestive heart failure) Constipation Decubitus ulcer Diabetic foot ulcer Encounter for health maintenance examination Gastric ulcer Gastroparesis Gout, joint Herpes zoster Hiatal hernia Influenza A Pneumonia Stasis ulcer Stenosis of trachea Vaginitis Surgical History H/O adenoidectomy H/O hand surgery H/O knee surgery H/O: hysterectomy Hx of salpingo-oophorectomy, bilateral S/P tonsillectomy Family History Father Emphysema, unspecified Sister Uterine cancer Ovarian cancer Other Liver cancer Denies family history of Colon cancer Pancreatic cancer Prostate cancer Myocardial infarction Breast cancer Bleeding disorder Colorectal cancer Social History Smoking Status: Never smoker Second Hand Exposure: No; Hx Alcohol Use: No Hx Substance Use: No Preferred Language: Yemeni Communication Ability: Effective Visual Impairment: Limited Hearing Ability: Normal 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[employer] 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 Required: No Beliefs That Will Affect Care: None marital status: Single Current Living Situation: Alone current occupational status: retired How many Children do You have: 0 Feels Safe at Home: Yes Childhood Exposure to Second-Hand Smoke: No Dental Care, Regularly: Yes Physical Activity Frequency: Does not Exercise Seatbelt Use: always Sunscreen Use: No Do you think of yourself as: straight/heterosexual Assistive Devices: Oxygen - Continuous Review of Systems Review of Systems: All systems reviewed & are unremarkable except as noted in Subjective Physical Exam Constitutional: WD/WN, vitals as above well developed and well nourished; no acute distress Eyes: PERRL, conjunctivae normal, anicteric sclerae ENMT: external ear and nose normal, oropharynx normal Ears: no hearing impairment Neck: trachea midline Respiratory: normal respiratory effort; no respiratory distress and no cough Auscultation: + crackles; no wheezes Cardiovascular: Rate/Rhythm: regular rate and regular rhythm Heart Sounds: normal S1 and normal S2 Extremities: + edema (2 = b/l LE edema with mild erythema and blisters.) Gastrointestinal (Abdomen): normal bowel sounds, soft, nontender, no hepatosplenomegaly Percussion/Palpation: abdomen nontender, no guarding and abdomen not rigid Musculoskeletal: Extremities: extremities normal to inspection Gait: normal gait Skin: no rashes, warm and dry Neurologic: moves all extremities and awake Psychiatric: A+Ox3, euthymic affect Results & Data ([facility]) Vital Signs (Past 12 Hours) Vital Signs Temp Pulse Pulse Resp BP Pulse Ox 03/08/21 11:26 37.2 C 67 19 135/54 L 97 03/08/21 07:17 37.4 C 88 19 117/60 95 03/08/21 04:29 36.5 C 74 18 125/67 98 03/08/21 04:28 78 PG Care Time/CCT Total # of Minutes Spent Total Time Spent with Patient: Total time spent is greater than 50% in coordination of care (as documented) at patient's floor/unit and/or counseling patient: Coding Level of Care Code 22261 Initial Inpt Care Lvl 3 Diagnoses CKD (chronic kidney disease), stage IV N18.4 Essential hypertension I10 Acute on chronic heart failure with preserved ejection fraction (HFpEF) I50.33 Chronic anemia D64.9 Secondary hyperparathyroidism of renal origin N25.81
--- NOTE | 2021-03-08 15:15 | Electrocardiogram Report ---
Test Reason : Blood Pressure : / mmHG Vent. Rate : 050 BPM Atrial Rate : 050 BPM P-R Int : 274 ms QRS Dur : 136 ms QT Int : 492 ms P-R-T Axes : 078 -31 101 degrees QTc Int : 448 ms Sinus bradycardia with 1st degree A-V block Left axis deviation Left ventricular hypertrophy with QRS widening and repolarization abnormality Abnormal ECG When compared with ECG of 22-JAN-2021 16:08, No significant change was found Confirmed by Franco Ballard ([id number]) on 03/08/2021 3:15:25 PM Referred By: Alfred Mckeon Confirmed By:Franco Ballard
--- NOTE | 2021-03-08 16:12 | XCELERA ---
[id number]
[2021-03-08] MEDS: BUMETANIDE 4 MG in SYRINGE 0 ML IV SCH (16:37)
[2021-03-08] MEDS: clonazePAM 0.5 MG TAB PO SCH (20:12)
[2021-03-08] MEDS: METOCLOPRAMIDE HCL 10 MG TABLET PO SCH (20:13)
[2021-03-08] MEDS: EZETIMIBE/SIMVASTATIN 10/40MG 1 TAB TAB PO SCH (20:14)
[2021-03-09] MEDS: LEVOTHYROXINE SODIUM 88 MCG TABLET PO SCH (05:19)
[2021-03-09 07:31] LABS: Basophils # (auto) 0.02 K/uL (0-0.2); Basophils % (auto) 0.3 %; Eosinophils # (auto) 0.19 K/uL (0-0.5); Eosinophils % (auto) 2.4 %; Hematocrit (blood only) 26.3 % (37-47); Hemoglobin 8.1 g/dL (12.0-16.0); Immature Granulocytes # (auto) 0.04 K/uL (0.00-0.02); Immature Granulocytes % (auto) 0.5 %; Lymphocytes # (auto) 0.88 K/uL (1.2-3.4); Lymphocytes % (auto) 11.3 %; Mean Corpuscular Hemoglobin 26.4 pg (25-34); Mean Corpuscular Hgb Conc 30.8 g/dL (32-36); Mean Corpuscular Volume 85.7 fL (80-100); Mean Platelet Volume 10.2 fL (7.4-10.4); Monocytes # (auto) 0.87 K/uL (0.11-0.59); Monocytes % (auto) 11.2 %; Neutrophils # (auto) 5.79 K/uL (1.4-6.5); Neutrophils % (auto) 74.3 %; Platelet Count 107 K/uL (130-400); RDW Coefficient of Variation 16.7 % (11.5-14.5); RDW Standard Deviation 52.1 fL (36.4-46.3); Red Blood Count 3.07 M/uL (4.2-5.4); White Blood Count 7.79 K/uL (4.8-10.8)
[2021-03-09 07:54] LABS: Albumin Level 2.9 gm/dl (3.4-5.0); Bilirubin Direct 0.2 mg/dl (0-0.2); Calcium 8.8 mg/dl (8.5-10.1); Creatinine Clr Calc Pharmacy 20.8 ml/min; Est GFR (African American) 19.4 ml/min; Est GFR (Non-African American) 16.7 ml/min; INR 3.4 (0.9-1.1); Magnesium 2.7 mg/dl (1.8-2.4); Partial Thromboplastin Ratio 1.8; Potassium 3.8 mmol/L (3.5-5.1); Prothrombin Time 31.1 Seconds (9.0-12.0)
[2021-03-09 07:58] LABS: Bilirubin,Total 0.4 mg/dl (0.2-1); Ferritin 49.6 ng/ml (8-388); Phosphorus 4.1 mg/dl (2.5-4.9); Total Protein 6.5 gm/dl (6.4-8.2)
[2021-03-09 08:13] LABS: Partial Thromboplastin Time 46.7 Seconds (21.0-31.0)
[2021-03-09] MEDS: PANTOprazole 40 MG TAB PO SCH (09:02)
[2021-03-09] MEDS: POTASSIUM CHLORIDE CRTAB 20 MEQ TABCR PO SCH (09:02)
[2021-03-09] MEDS: DOCUSATE SODIUM 100 MG CAP PO SCH ×4 (09:02→20:02)
[2021-03-09] MEDS: METOPROLOL TARTRATE 25 MG TAB PO SCH (09:02)
[2021-03-09] MEDS: allopurinoL 100 MG TAB PO SCH (09:03)
[2021-03-09] MEDS: BUMETANIDE 4 MG in SYRINGE 0 ML IV SCH ×2 (09:03→17:09)
[2021-03-09] MEDS: CALCITRIOL 0.25 MCG CAPSULE PO SCH (09:03)
[2021-03-09] MEDS: ISOSORBIDE MONO EXTENDED REL 30 MG TABCR PO SCH ×3 (09:04→20:03)
[2021-03-09] MEDS: DULoxetine HCL 30 MG CAP PO SCH (09:04)
[2021-03-09] MEDS: FEXOFENADINE HCL 180 MG TAB PO SCH (09:04)
[2021-03-09] MEDS: ASTELIN - ORDER AWAITING ACTION SCH ×2 (09:05→16:49)
[2021-03-09] MEDS: ACETAMINOPHEN 325 MG TAB PO PRN (09:19)
--- NOTE | 2021-03-09 10:14 | Pulmonary Consultation ---
Date of Consultation March 09, 2021 Assessment & Plan (1) Obstructive sleep apnea of adult: (2) Dyspnea: X-ray 03/07/2021 personally reviewed: Portable film, increased cardiac silhouette, mild blunting of bilateral costophrenic angles, increased pulmonary vascular markings, no clear lung infiltrate appreciated --Acute hypoxic respiratory failure Likely secondary to diastolic CHF Patient does have some wheezing on physical exam This to me is likely cardiac wheeze --History of subglottic stenosis Patient recently had an intervention done at [facility] No stridor appreciated on physical exam I do not think there is any acute intervention needed at this time --Restrictive lung disease Likely from underlying morbid obesity Incentive spirometry will be helpful Spirometry 01/04/2021: No obstructive lung dysfunction, insignificant bronchodilator response, flow volume loop inclining more towards restrictive lung disease FVC 0.80 L, 39%, FEV 1.68 L, 40%, FEV1/FVC 77% --TAMMIE Patient is on CPAP Would recommend to continue CPAP. --History of DVT/PE On warfarin at home Plan: Continue with diuresis as tolerated Continue with CPAP nightly and as needed shortness of breath Add guaifenesin as patient is complaining of chest congestion. Incentive spirometry will be beneficial No further recommendations from pulmonary perspective. Please call directly with any questions. Case discussed with Dr. Valencia Please note the above document was generated using voice recognition software. It may contain grammatical, syntax or spelling errors.Any formal questions or concerns about the content, text or information contained within the body of this dictation should be directly addressed to the provider for clarification. Dyspnea type: shortness of breath Qualified Code(s): R06.02 - Shortness of breath (3) Subglottic stenosis: (4) Acute respiratory failure with hypoxia: (5) Restrictive lung disease: (6) History of DVT (deep vein thrombosis): History of Present Illness Attending Physician: Eligio Valencia MD History of Present Illness 75-year-old female with past medical history of subglottic stenosis, diabetes type 2, paroxysmal A. fib on warfarin, questionable history of asthma, hypertension, GERD, TAMMIE, CKD stage IV was admitted to the hospital because of worsening shortness of breath going on since last couple of weeks. Progressively getting worse. Pulmonary were consulted for subglottic stenosis and shortness of breath Patient follows up with Dr. Mondragon as an outpatient. At the time of examination patient states that she is feeling little bit better after coming to the hospital. She never had any fever. She did complain of some chills. Has a dry cough. Not bringing up any phlegm. Denies any recent upper respiratory infection. No runny nose, no tearing from the eyes. Denies any nausea or vomiting. No palpitations. Social history: Non-smoker Allergies Allergy/AdvReac Type Severity Reaction Status Date / Time clarithromycin Allergy Intermediate RASH AND Verified 03/07/21 18:56 ITCHING Home Medications Medication Instructions Recorded Confirmed Type nitroglycerin [Nitrostat] 0.4 mg UT UD PRN #0 09/28/09 03/07/21 History cranberry fruit concentrate 250 mg 500 mg PO QDL tab 08/20/18 03/07/21 History chewable tablet docusate sodium 100 mg capsule 100 mg PO QID cap 05/10/19 03/07/21 History fexofenadine 180 mg tablet 180 mg PO QAM tab 05/10/19 03/07/21 History lancets 33 gauge #100 ea 05/10/19 01/26/21 History azelastine 137 mcg (0.1 %) nasal 2 sprays INTNAS BID #90 ml 10/28/19 03/07/21 Rx spray aerosol terconazole 0.4 % vaginal cream 1 appl PV DAILY PRN #45 gm 04/26/20 03/07/21 Rx blood sugar diagnostic #400 ea 07/07/20 01/26/21 Rx pantoprazole 40 mg tablet,delayed 40 mg PO DAILY #90 tab 08/15/20 03/07/21 Rx release potassium chloride 20 mEq 20 meq PO DAILY #90 tab 09/20/20 03/07/21 Rx tablet,extended release(part/cryst) metoclopramide HCl 10 mg tablet 10 mg PO QPM #90 tab 09/26/20 03/07/21 Rx metoprolol tartrate 25 mg tablet 25 mg PO QAM #90 tab 10/03/20 03/07/21 Rx fenofibric acid (choline) 135 mg 135 mg PO QAM #90 cap 10/26/20 03/07/21 Rx capsule,delayed release duloxetine 30 mg capsule,delayed 30 mg PO QAM #90 cap 12/06/20 03/07/21 Rx release desonide 0.05 % topical cream 1 applic TOPICAL BID #60 g 12/18/20 03/07/21 Rx allopurinol 100 mg tablet 100 mg PO QAM #90 tab 12/21/20 03/07/21 Rx bumetanide 2 mg tablet 3 mg PO BID 90 Days #180 tab 01/08/21 03/07/21 Rx calcitriol 0.5 mcg capsule 0.5 mcg PO DAILY #90 cap 01/08/21 03/07/21 Rx insulin aspart U-100 100 unit/mL 3 - 6 unit SUBCUT ACHS ml 01/22/21 03/07/21 History (3 mL) subcutaneous pen isosorbide mononitrate 30 mg 30 mg PO TID #270 tab 01/25/21 03/07/21 Rx tablet,extended release 24 hr pen needle, diabetic 31 gauge x #500 ea 01/29/21 Rx 3/16" Xopenex HFA 45 mcg/actuation 1 - 2 inh INH Q4H PRN #15 g NS 02/07/21 03/07/21 Rx aerosol inhaler insulin glargine 100 unit/mL (3 45 unit SC BID ml 02/20/21 03/07/21 History mL) subcutaneous pen ipratropium 0.5 mg-albuterol 3 mg 3 ml INHALATION QID PRN #90 ml 02/20/21 03/07/21 Rx (2.5 mg base)/3 mL nebulization soln ezetimibe 10 mg-simvastatin 40 mg 1 tab PO HS #90 tab 02/26/21 03/07/21 Rx tablet clonazepam 0.5 mg tablet 0.5 mg PO HS #30 tab 03/01/21 03/07/21 Rx levothyroxine 88 mcg tablet 88 mcg PO DAILY #30 tab 03/05/21 03/07/21 Rx ergocalciferol (vitamin D2) 1,250 50,000 unit PO Q14D #6 cap 03/06/21 03/07/21 Rx mcg (50,000 unit) capsule betamethasone dipropionate 1 applic TOPICAL Q OTHER DAY PRN 03/07/21 03/07/21 History warfarin 5 mg PO DIRECTED 03/07/21 03/07/21 History Patient History Medical History (Updated 03/09/21 @ 11:27 by Alfredo Valle MD) Acute osteomyelitis Cataract CHF (congestive heart failure) Chronic anemia Constipation Decubitus ulcer Diabetic foot ulcer Encounter for health maintenance examination Gastric ulcer Gastroparesis Gout, joint Herpes zoster Hiatal hernia Influenza A Pneumonia Secondary hyperparathyroidism of renal origin Stasis ulcer Stenosis of trachea Vaginitis Surgical History H/O adenoidectomy H/O hand surgery H/O knee surgery H/O: hysterectomy Hx of salpingo-oophorectomy, bilateral S/P tonsillectomy Family History Father Emphysema, unspecified Sister Uterine cancer Ovarian cancer Other Liver cancer Denies family history of Colon cancer Pancreatic cancer Prostate cancer Myocardial infarction Breast cancer Bleeding disorder Colorectal cancer Social History Smoking Status: Never smoker Second Hand Exposure: No; Hx Alcohol Use: No Hx Substance Use: No Preferred Language: Syriac Communication Ability: Effective Visual Impairment: Limited Hearing Ability: Normal Tearoom Host/Hostess Required: No Beliefs That Will Affect Care: None marital status: Single Current Living Situation: Alone current occupational status: retired How many Children do You have: 0 Feels Safe at Home: Yes Childhood Exposure to Second-Hand Smoke: No Dental Care, Regularly: Yes Physical Activity Frequency: Does not Exercise Seatbelt Use: always Sunscreen Use: No Do you think of yourself as: straight/heterosexual Assistive Devices: Oxygen - Continuous Review of Systems Review of Systems: All systems reviewed & are unremarkable except as noted in HPI & below Physical Exam Physical Exam: Constitutional: No acute distress HEENT: EOMI, PERRLA, no stridor Respiratory system: Decreased air entry bilaterally, no rhonchi, positive crackles bilateral lower lobes, minimal expiratory wheeze CVS: S1-S2 positive, no murmurs or gallops Abdomen: Soft, nontender, nondistended, positive bowel sounds x4, obese Extremities: +2 pulses bilaterally radialis/ dorsalis pedis, no cyanosis, +1 pitting edema bilateral lower extremity, chronic venous stasis Neuro: Awake alert oriented x3 Psych: Normal mood and affect G/U: Positive Morris Skin: no rashes, warm and dry Lymphatic: no cervical or axillary lymphadenopathy Results & Data Results & Data ([facility]) Vital Signs (Past 12 Hours) Vital Signs Temp Pulse Pulse Resp BP Pulse Ox Pulse Ox 03/09/21 09:53 64 20 98 03/09/21 07:25 36.4 C L 63 20 156/71 H 100 03/09/21 03:52 36.6 C 60 24 133/56 L 98 03/09/21 00:48 98 03/08/21 23:45 64 03/08/21 23:34 37.0 C 65 20 126/69 99 03/09/21 06:52 03/09/21 06:52 PG Care Time/CCT Total # of Minutes Spent Total Time Spent with Patient: Total time spent is greater than 50% in coordination of care (as documented) at patient's floor/unit and/or counseling patient: Coding Level of Care Code 25099 Initial Inpt Care Lvl 3 Diagnoses Obstructive sleep apnea of adult G47.33 Dyspnea R06.02 Dyspnea type: shortness of breath Subglottic stenosis J38.6 Acute respiratory failure with hypoxia J96.01 Restrictive lung disease J98.4 History of DVT (deep vein thrombosis) Z86.718
[2021-03-09] MEDS: INSULIN ASPART 100 UNITS/ML 3 ML PEN SC SCH ×5 (10:24→21:02)
[2021-03-09] MEDS: INSULIN GLARGINE SOLOSTAR 100 UNITS/ML 3 ML PEN SC SCH ×2 (10:26→21:03)
--- NOTE | 2021-03-09 11:07 | Pharmacy Report ---
Pharmacy Glycemic Short Note 2 - Date of Service March 09, 2021 - Glycemic Short BSG Results (Last 24 hours): 03/08/21 03/08/21 03/08/21 11:19 11:20 11:41 Glucose POC Glucose 65 L* 69 L* 82 03/08/21 03/08/21 03/08/21 16:21 16:23 16:44 Glucose POC Glucose 41 L* 39 L* 131 H 03/08/21 03/09/21 03/09/21 20:43 04:41 05:43 Glucose POC Glucose 81 60 L* 122 H 03/09/21 03/09/21 06:52 07:17 Glucose 107 H POC Glucose 104 H OUTPATIENT ANTIDIABETIC REGIMEN: * Insulin glargine (Basaglar) 45 units SQ BID * NovoLog 3-6 units SQ with meals * A1c = 6.5% on 03/08/21 ASSESSMENT: 03/09 * Pt has received 45 units of insulin over the past 24hrs * 45 units of basal with Lantus * 0 units of bolus with NovoLog * BSGs 119-65/01-149-68-60-104 mg/dl * No additional basal insulin required yesterday. Pt received her outpatient dose of Lantus 45units yesterday morning. No Lantus given at HS when BSG = 81mg/dl * No prandial insulin given yesterday (Pt NPO). Diet advanced to clears. * Will continue with reduced outpatient dosing of Lantus for decreased PO intake and titrate based on BSG trends. 03/08 * 75yo T2DM female with excellent outpatient control per recent A1c * Pt with LOW BSG today secondary to too much basal insulin on board * Outpatient regimen is heavily weighted towards basal insulin (basal insulin = 90 units; bolus insulin max 18 units) indicating that basal insulin is covering some prandial requirements. * Pt with LOW BSG when outpatient basal insulin continued with NPO status * Will adjust/decrease insulin regimen for NPO and continue to titrate based on BSG trends. PLAN FOR INPATIENT GLYCEMIC CONTROL: * Basal insulin: dose based on BSG tonight * Lantus SQ BID - dose based on BSG * BSG below 140 --> 10 units (~1/4 outpatient dose) * BSG 141-180 --> 20 units (~1/2 outpatient dose) * BSG above 180 --> 30 units (~2/3% outpatient dose) * Bolus insulin * NovoLog per scale ACHS or Q6hrs while NPO * Goal Range: Low 110 mg/dL - High 140 mg/dL * Correction Factor: 20 mg/dL/unit * Nutritional / Prandial insulin per carb ratio of 1 unit per 7 grams CHO consumed PLAN FOR DISCHARGE: * TBD; likely no changes needed based on A1c unless patient is experiencing hypoglycemia as an outpatient since outpatient regimen is heavily weighted towards basal insulin dosing.
--- NOTE | 2021-03-09 14:04 | Nephrology Progress Note ---
Date of Service March 09, 2021 Assessment & Plan (1) CKD (chronic kidney disease), stage IV: 75 y o F with stage IV CKD, diastolic dysfunction, admitted with progressive SOB with volume overload >8 lbs above her EDW. Has been on high dose diuretics for cardiorenal syndrome with diastolic dysfunction. Slight worsening of renal function with diuresis with high dose of Bumex, iron study showed low iron saturation and low ferritin. --although no significant improvement yet clinically, has been having increased UO with net negative with slight changes in cr, would continue on Bumex to 4 mg IV BID, aim for net negative 0.5 to 1 L/d --monitor renal function, Mg, Phos --start on Venofer IV --continue Calcitriol --high risk for Worsening renal function and electrolyte considering underlying advanced CKD --avoid nephrotoxic meds, dose meds for GFR <30, left arm nephrology precaution Will follow. (2) Essential hypertension: (3) Acute on chronic heart failure with preserved ejection fraction (HFpEF): (4) Chronic anemia: (5) Secondary hyperparathyroidism of renal origin: Admission and Anticipated Discharge Date Admission Date: March 07, 2021 Subjective Beverley overall has been feeling about the same, no significant improvement in SOB, but UO increased and she is negative >1 L. Creatinine slightly worsened, electrolyte acceptable. Blood pressure well controlled. Review of Systems Review of Systems: All systems reviewed & are unremarkable except as noted in Subjective Physical Exam Constitutional: + ill appearing and + edematous; no acute distress Neck: normal visual inspection Respiratory: normal respiratory effort; no respiratory distress Auscultation: + wheezes; no crackles Cardiovascular: Rate/Rhythm: regular rate and regular rhythm Heart Sounds: normal S1 and normal S2 Extremities: + edema Skin: + erythema Neurologic: moves all extremities and awake; no focal motor deficits and not confused Speech / Cognition: normal speech Psychiatric: A+Ox3, euthymic affect Results & Data ([facility]) Vital Signs (Past 12 Hours) Vital Signs Temp Pulse Pulse Resp BP Pulse Ox 03/09/21 11:17 36.4 C L 60 18 129/66 97 03/09/21 09:53 64 20 98 03/09/21 08:00 55 L 03/09/21 07:25 36.4 C L 63 20 156/71 H 100 03/09/21 03:52 36.6 C 60 24 133/56 L 98 PG Care Time/CCT Total # of Minutes Spent Total Time Spent with Patient: Total time spent is greater than 50% in coordination of care (as documented) at patient's floor/unit and/or counseling patient: Coding Level of Care Code 43163 Subseq Hosp Care Lvl 3 Diagnoses CKD (chronic kidney disease), stage IV N18.4 Essential hypertension I10 Acute on chronic heart failure with preserved ejection fraction (HFpEF) I50.33 Chronic anemia D64.9 Secondary hyperparathyroidism of renal origin N25.81
--- NOTE | 2021-03-09 14:30 | Fluoroscopy Report ---
FL video swallow HISTORY: Assess for aspiration TECHNIQUE: Video fluoroscopic evaluation of swallowing was performed in the AP and lateral projection s by the speech pathology staff. The patient is fed nectar-thick and thin liquid barium, a barium coa addison wafer, and barium pudding. FLUOROSCOPY TIME: 2.2 mm. NUMBER OF FLUOROSCOPY IMAGES: 655 COMPARISON STUDY: None. FINDINGS: There is normal hyoid excursion and epiglottic deflection. Minimal aspiration is seen. IMPRESSION: 1. Minimal aspiration. 2. Please see the speech pathologist report for detailed findings and recommendations. ACT 112: Negative or not required by law. The above report was generated using voice recognition software. It may contain grammatical, syntax o r spelling errors. Electronically signed by: Clarita Mcqueen DO 03/09/2021 2:28 PM
[2021-03-09] MEDS: IRON SUCROSE 200 MG in 0.9 % SODIUM CHLORIDE 100 ML IV SCH (15:22)
--- NOTE | 2021-03-09 18:07 | Hospitalist Progress Note ---
Date of Service March 09, 2021 Assessment & Plan (1) Acute on chronic heart failure with preserved ejection fraction (HFpEF): Acute on chronic HFpEF/CAD/PAF/hypertension/supratherapeutic INR- Primarily the hypervolemia secondary to CKD rather than heart. Hold oral bumetanide 3 mg p.o. twice daily Continue increased Bumex to 4 mg IV twice daily. Continue isosorbide mononitrate 30 mg 3 times daily, Toprol tartrate 25 mg every morning, nitroglycerin sublingual as needed, potassium chloride 20 mEq p.o. daily Hold warfarin for INR of 3.4. Follow daily CBC with differential, chemistry profile, PT/INR/PTT and magnesium (2) CKD (chronic kidney disease), stage IV: Creatinine 2.39 upon admission, with range 1.9 to-2.62. Estimated creatinine clearance 23.4, with range 21.7-30.3 Follow labs serially. Appreciate nephrology consult for fluid management (3) Iron deficiency anemia: Possibly contributing towards SOB. FOB pending. IV venofer per nephrology management. (4) Paroxysmal atrial fibrillation: See above (5) Stenosis of trachea: Tracheal stenosis/subglottic stenosis- Status post recent procedure at [facility]. Treatment by Dr Mondragon in January in addition without significant change. No stridor on exam - no intervention required per pulmonology consult (6) SGS (subglottic stenosis): See above (7) Diabetes type 2, uncontrolled: Hemoglobin A1c 8.8. Consult pharmacy for glycemic control with basal bolus insulin. (8) Asthma: Hold Xopenex HFA DuoNeb every 2 hours as needed No acute exacerbation suspected with noted wheezing on exam. 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 Minced and moist diet (17) Elevated liver transaminase level: ? 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 fib + h/o DVT > 5 yrs ago. Currently supratherapeutic. Holding warfarin with daily INR Admission and Anticipated Discharge Date Admission Date: March 07, 2021 Subjective Still feels significantly short of breath. No chest pain. UO increased with higher dose of Bumex. No BM since admission. No nausea, vomiting, abdominal pain, melena, bright red blood in stool. Passed video swallow today without aspiration Review of Systems Review of Systems: All systems reviewed & are unremarkable except as noted in HPI & below Physical Exam Constitutional: + ill appearing and + morbidly obese; no acute distress Eyes: PERRL, conjunctivae normal, anicteric sclerae ENMT: external ear and nose normal, oropharynx normal Respiratory: normal respiratory effort; no respiratory distress Auscultation: + diminished lung sounds and + wheezes (Mild expiratory wheeze anteriorly); no crackles and no rales Cardiovascular: Rate/Rhythm: regular rate and regular rhythm Heart Sounds: no murmur Vessels: no JVD (Large neck size) Extremities: normal capillary refill and + pedal edema (2+ equal b/l) Gastrointestinal (Abdomen): normal bowel sounds, soft, nontender, no hepatosplenomegaly Musculoskeletal: no cyanosis or clubbing, extremities motor strength 5/5 Skin: no rashes, warm and dry Neurologic: moves all extremities and awake; not confused Psychiatric: A+Ox3, euthymic affect Results & Data Results & Data ([facility]) Vital Signs (Past 12 Hours) Vital Signs Temp Pulse Pulse Pulse Resp BP Pulse Ox 03/09/21 15:42 62 03/09/21 15:23 56 L 131/56 L 03/09/21 15:10 36.5 C 60 19 144/68 H 99 03/09/21 11:17 36.4 C L 60 18 129/66 97 03/09/21 09:53 64 20 98 03/09/21 08:00 55 L 03/09/21 07:25 36.4 C L 63 20 156/71 H 100 PG Care Time/CCT Total # of Minutes Spent Total Time Spent with Patient: Total time spent is greater than 50% in coordination of care (as documented) at patient's floor/unit and/or counseling patient: Coding Level of Care Code 24763 Subseq Hosp Care Lvl 2 Diagnoses Acute on chronic heart failure with preserved ejection fraction (HFpEF) I50.33 CKD (chronic kidney disease), stage IV N18.4 Iron deficiency anemia D50.8 Iron deficiency anemia type: other iron deficiency Paroxysmal atrial fibrillation I48.0 Stenosis of trachea J39.8 SGS (subglottic stenosis) J38.6 Diabetes type 2, uncontrolled E11.65 Glycemic state: with hyperglycemia Asthma J45.40 Asthma complication type: uncomplicated Asthma persistence: persistent Asthma severity: moderate Depression F32.9 Active/Remission status: remission status unspecified Depression Type: major depressive disorder Major depression recurrence: unspecified whether recurrent Essential hypertension I10 Obstructive sleep apnea of adult G47.33 GERD without esophagitis K21.9 Hypothyroidism E03.9 Hypothyroidism type: unspecified Diabetic peripheral neuropathy E11.42 Dyslipidemia E78.5 Oropharyngeal dysphagia R13.12 Elevated liver transaminase level R74.01 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 Z79.01 (1) Depression Active/Remission status: remission status unspecified Depression Type: major depressive disorder Major depression recurrence: unspecified whether recurrent Qualified Code(s): F32.9 - Major depressive disorder, single episode, unspecified (2) Hypothyroidism Hypothyroidism type: unspecified Qualified Code(s): E03.9 - Hypothyroidism, unspecified (3) Diabetes type 2, uncontrolled Glycemic state: with hyperglycemia Qualified Code(s): E11.65 - Type 2 diabetes mellitus with hyperglycemia (4) Asthma Asthma complication type: uncomplicated Asthma persistence: persistent Asthma severity: moderate Qualified Code(s): J45.40 - Moderate persistent asthma, uncomplicated (5) Iron deficiency anemia Iron deficiency anemia type: other iron deficiency Qualified Code(s): D50.8 - Other iron deficiency anemias
[2021-03-09] MEDS: clonazePAM 0.5 MG TAB PO SCH (20:02)
[2021-03-09] MEDS: EZETIMIBE/SIMVASTATIN 10/40MG 1 TAB TAB PO SCH (20:03)
[2021-03-09] MEDS: guaiFENesin 600 MG TABCR PO SCH (20:04)
[2021-03-09] MEDS: METOCLOPRAMIDE HCL 10 MG TABLET PO SCH (20:05)
[2021-03-10] MEDS: ASTELIN - ORDER AWAITING ACTION SCH ×3 (01:40→15:53)
[2021-03-10] MEDS: LEVOTHYROXINE SODIUM 88 MCG TABLET PO SCH (06:18)
[2021-03-10 07:09] LABS: Basophils # (auto) 0.01 K/uL (0-0.2); Basophils % (auto) 0.1 %; Eosinophils # (auto) 0.26 K/uL (0-0.5); Eosinophils % (auto) 3.5 %; Hematocrit (blood only) 27.3 % (37-47); Hemoglobin 8.4 g/dL (12.0-16.0); Immature Granulocytes # (auto) 0.03 K/uL (0.00-0.02); Immature Granulocytes % (auto) 0.4 %; Lymphocytes # (auto) 0.99 K/uL (1.2-3.4); Lymphocytes % (auto) 13.4 %; Mean Corpuscular Hemoglobin 26.5 pg (25-34); Mean Corpuscular Hgb Conc 30.8 g/dL (32-36); Mean Corpuscular Volume 86.1 fL (80-100); Mean Platelet Volume 11.3 fL (7.4-10.4); Monocytes # (auto) 0.95 K/uL (0.11-0.59); Monocytes % (auto) 12.8 %; Neutrophils # (auto) 5.16 K/uL (1.4-6.5); Neutrophils % (auto) 69.8 %; Platelet Count 119 K/uL (130-400); RDW Coefficient of Variation 16.7 % (11.5-14.5); RDW Standard Deviation 52.8 fL (36.4-46.3); Red Blood Count 3.17 M/uL (4.2-5.4)
[2021-03-10 07:28] LABS: Albumin Level 2.7 gm/dl (3.4-5.0); BUN Creatinine Ratio 32.3 (10-20); Calcium 8.5 mg/dl (8.5-10.1); Creatinine Clr Calc Pharmacy 20.9 ml/min; Est GFR (African American) 19.6 ml/min; Est GFR (Non-African American) 16.9 ml/min; Magnesium 2.6 mg/dl (1.8-2.4); Potassium 3.8 mmol/L (3.5-5.1)
[2021-03-10 07:29] LABS: Partial Thromboplastin Ratio 1.8; Prothrombin Time 27.7 Seconds (9.0-12.0)
[2021-03-10 07:30] LABS: Phosphorus 3.4 mg/dl (2.5-4.9)
[2021-03-10 07:49] LABS: Partial Thromboplastin Time 46.5 Seconds (21.0-31.0)
[2021-03-10] MEDS: allopurinoL 100 MG TAB PO SCH (08:12)
[2021-03-10] MEDS: BUMETANIDE 4 MG in SYRINGE 0 ML IV SCH ×2 (08:13→16:53)
[2021-03-10] MEDS: CALCITRIOL 0.25 MCG CAPSULE PO SCH (08:13)
[2021-03-10] MEDS: DOCUSATE SODIUM 100 MG CAP PO SCH ×4 (08:14→20:37)
[2021-03-10] MEDS: DULoxetine HCL 30 MG CAP PO SCH (08:14)
[2021-03-10] MEDS: FEXOFENADINE HCL 180 MG TAB PO SCH (08:15)
[2021-03-10] MEDS: guaiFENesin 600 MG TABCR PO SCH ×2 (08:15→20:39)
[2021-03-10] MEDS: ISOSORBIDE MONO EXTENDED REL 30 MG TABCR PO SCH ×3 (08:16→20:38)
[2021-03-10] MEDS: PANTOprazole 40 MG TAB PO SCH (08:16)
[2021-03-10] MEDS: METOPROLOL TARTRATE 25 MG TAB PO SCH (08:16)
[2021-03-10] MEDS: POTASSIUM CHLORIDE CRTAB 20 MEQ TABCR PO SCH (08:17)
[2021-03-10] MEDS: POLYETHYLENE (MIRALAX) 17 GM PACK PO SCH ×2 (08:17→20:41)
[2021-03-10] MEDS: INSULIN ASPART 100 UNITS/ML 3 ML PEN SC SCH ×4 (08:20→22:02)
[2021-03-10] MEDS: INSULIN GLARGINE SOLOSTAR 100 UNITS/ML 3 ML PEN SC SCH (08:25)
[2021-03-10] MEDS: IRON SUCROSE 200 MG in 0.9 % SODIUM CHLORIDE 100 ML IV SCH (10:40)
--- NOTE | 2021-03-10 12:43 | Nephrology Progress Note ---
Date of Service March 10, 2021 Assessment & Plan (1) CKD (chronic kidney disease), stage IV: Adequate urine output. Volume status improving. Electrolytes acceptable. No overt uremic symptoms. Kidney function stable. No emergent indication for dialysis. Medications appropriately dosed for kidney function. Document strict I/O's and daily weight. Repeat metabolic profile tomorrow AM. 75 y o F with stage IV CKD, diastolic dysfunction, admitted with progressive SOB with volume overload >8 lbs above her EDW. Has been on high dose diuretics for cardiorenal syndrome with diastolic dysfunction. (2) Essential hypertension: BP acceptable. No change in treatment at this time. Volume status improving. (3) Acute on chronic heart failure with preserved ejection fraction (HFpEF): Goal is to maintain net negative fluid balance >1 L/d. (4) Chronic anemia: Venofer 200 mg IV x 2nd dose of 5 today. (5) Secondary hyperparathyroidism of renal origin: Calcitriol 0.5 daily. Calcium acceptable. Admission and Anticipated Discharge Date Admission Date: March 07, 2021 Subjective No acute events overnight. No fevers or chills. Dyspnea and weakness persist. Appetite improved. No chest pain. Good urine output. Review of Systems Review of Systems: All systems reviewed & are unremarkable except as noted in HPI & below Physical Exam Constitutional: well developed and + obese; no acute distress Eyes: no scleral abnormality and no corneal abnormality ENMT: Mouth: no oral mucosal abnormality and oral mucous membranes not dry Neck: normal visual inspection and trachea midline Respiratory: + labored breathing; no respiratory distress Auscultation: lungs clear to auscultation bilaterally, + rales and + wheezes Cardiovascular: Rate/Rhythm: regular rate Heart Sounds: normal S1 and normal S2 Vessels: + JVD Extremities: + edema Musculoskeletal: Extremities: no cyanosis and no clubbing Skin: normal turgor; no lesions Neurologic: Motor/Sensory: no tremor and no asterixis Psychiatric: Orientation: alert and oriented x 3 Results & Data ([facility]) Vital Signs (Past 12 Hours) Vital Signs Temp Pulse Pulse Resp BP Pulse Ox 03/10/21 11:18 36.6 C 63 20 141/76 H 94 03/10/21 07:17 36.6 C 76 20 122/71 96 03/10/21 04:24 36.5 C 63 18 152/67 H 93 03/10/21 03:18 68 20 91 03/10/21 02:00 65 Laboratory Results Laboratory Results - last 24 hr 03/09/21 03/09/21 03/09/21 14:11 16:16 20:12 WBC RBC Hgb Hct MCV MCH MCHC RDW Std Deviation RDW Coeff of Melonie Plt Count MPV Immature Gran % (Auto) Neut % (Auto) Lymph % (Auto) Carter % (Auto) Eos % (Auto) Baso % (Auto) Neut # (Auto) Lymph # (Auto) Carter # (Auto) Eos # (Auto) Baso # (Auto) Immature Gran # (Auto) PT INR APTT PTT Ratio Sodium Potassium Chloride Carbon Dioxide Anion Gap BUN Creatinine Est Cr Clr Drug Dosing Est GFR ( Amer) Est GFR (Non-Af Amer) BUN/Creatinine Ratio Glucose POC Glucose 134 H 121 H 76 Calcium Phosphorus Magnesium Albumin 03/10/21 03/10/21 03/10/21 06:48 06:48 06:48 WBC 7.40 RBC 3.17 L Hgb 8.4 L Hct 27.3 L MCV 86.1 MCH 26.5 MCHC 30.8 L RDW Std Deviation 52.8 H RDW Coeff of Melonie 16.7 H Plt Count 119 L MPV 11.3 H Immature Gran % (Auto) 0.4 Neut % (Auto) 69.8 Lymph % (Auto) 13.4 Carter % (Auto) 12.8 Eos % (Auto) 3.5 Baso % (Auto) 0.1 Neut # (Auto) 5.16 Lymph # (Auto) 0.99 L Carter # (Auto) 0.95 H Eos # (Auto) 0.26 Baso # (Auto) 0.01 Immature Gran # (Auto) 0.03 H PT 27.7 H INR 3.0 H APTT 46.5 H* PTT Ratio 1.8 Sodium 144 Potassium 3.8 Chloride 109 H Carbon Dioxide 30 Anion Gap 5.0 BUN 85 H Creatinine 2.63 H Est Cr Clr Drug Dosing 20.9 Est GFR ( Amer) 19.6 Est GFR (Non-Af Amer) 16.9 BUN/Creatinine Ratio 32.3 H Glucose 77 POC Glucose Calcium 8.5 Phosphorus 3.4 Magnesium 2.6 H Albumin 2.7 L 03/10/21 03/10/21 03/10/21 07:15 09:18 09:56 WBC RBC Hgb Hct MCV MCH MCHC RDW Std Deviation RDW Coeff of Melonie Plt Count MPV Immature Gran % (Auto) Neut % (Auto) Lymph % (Auto) Carter % (Auto) Eos % (Auto) Baso % (Auto) Neut # (Auto) Lymph # (Auto) Carter # (Auto) Eos # (Auto) Baso # (Auto) Immature Gran # (Auto) PT INR APTT PTT Ratio Sodium Potassium Chloride Carbon Dioxide Anion Gap BUN Creatinine Est Cr Clr Drug Dosing Est GFR ( Amer) Est GFR (Non-Af Amer) BUN/Creatinine Ratio Glucose POC Glucose 84 162 H 146 H Calcium Phosphorus Magnesium Albumin 03/10/21 03/10/21 11:20 11:52 WBC RBC Hgb Hct MCV MCH MCHC RDW Std Deviation RDW Coeff of Melonie Plt Count MPV Immature Gran % (Auto) Neut % (Auto) Lymph % (Auto) Carter % (Auto) Eos % (Auto) Baso % (Auto) Neut # (Auto) Lymph # (Auto) Carter # (Auto) Eos # (Auto) Baso # (Auto) Immature Gran # (Auto) PT INR APTT PTT Ratio Sodium Potassium Chloride Carbon Dioxide Anion Gap BUN Creatinine Est Cr Clr Drug Dosing Est GFR ( Amer) Est GFR (Non-Af Amer) BUN/Creatinine Ratio Glucose POC Glucose 115 H 119 H Calcium Phosphorus Magnesium Albumin PG Care Time/CCT Total # of Minutes Spent Total Time Spent with Patient: Total time spent is greater than 50% in coordination of care (as documented) at patient's floor/unit and/or counseling patient: Coding Level of Care Code 59892 Subseq Hosp Care Lvl 3 Diagnoses CKD (chronic kidney disease), stage IV N18.4 Essential hypertension I10 Acute on chronic heart failure with preserved ejection fraction (HFpEF) I50.33 Chronic anemia D64.9 Secondary hyperparathyroidism of renal origin N25.81
--- NOTE | 2021-03-10 13:45 | Pharmacy Report ---
Pharmacy Glycemic Short Note 2 - Date of Service March 10, 2021 - Glycemic Short BSG Results (Last 24 hours): 03/09/21 03/09/21 03/09/21 14:11 16:16 20:12 Glucose POC Glucose 134 H 121 H 76 03/10/21 03/10/21 03/10/21 06:48 07:15 09:18 Glucose 77 POC Glucose 84 162 H 03/10/21 03/10/21 03/10/21 09:56 11:20 11:52 Glucose POC Glucose 146 H 115 H 119 H OUTPATIENT ANTIDIABETIC REGIMEN: * Insulin glargine (Basaglar) 45 units SQ BID * NovoLog 3-6 units SQ with meals * A1c = 6.5% on 03/08/21 ASSESSMENT: 03/10 * BSGs tightly controlled yesterday, ranging 60-121 mg/dL * Received 19 units of insulin (10 units of basal and 9 units of bolus) * Fasting BSG of 84 mg/dL this morning * RN notified pharmacist that patient inadvertently received 45 unit Lantus dose this morning * Appetite improving, will hold carb coverage for now and continue to check more frequent BSGs to monitor for hypoglycemia 03/09 * Pt has received 45 units of insulin over the past 24hrs * 45 units of basal with Lantus * 0 units of bolus with NovoLog * BSGs 119-65/77-776-59-60-104 mg/dl * No additional basal insulin required yesterday. Pt received her outpatient dose of Lantus 45units yesterday morning. No Lantus given at HS when BSG = 81mg/dl * No prandial insulin given yesterday (Pt NPO). Diet advanced to clears. * Will continue with reduced outpatient dosing of Lantus for decreased PO intake and titrate based on BSG trends. 03/08 * 75yo T2DM female with excellent outpatient control per recent A1c * Pt with LOW BSG today secondary to too much basal insulin on board * Outpatient regimen is heavily weighted towards basal insulin (basal insulin = 90 units; bolus insulin max 18 units) indicating that basal insulin is covering some prandial requirements. * Pt with LOW BSG when outpatient basal insulin continued with NPO status * Will adjust/decrease insulin regimen for NPO and continue to titrate based on BSG trends. PLAN FOR INPATIENT GLYCEMIC CONTROL: * Basal insulin: * Lantus 45 units SC x 1 this morning * Will follow BSG trend and reassess in AM * Bolus insulin - temporarily hold carb coverage * NovoLog per scale ACHS or Q6hrs while NPO * Goal Range: Low 110 mg/dL - High 140 mg/dL * Correction Factor: 25 mg/dL/unit * Nutritional / Prandial insulin per carb ratio of 1 unit per - grams CHO consumed PLAN FOR DISCHARGE: * TBD; likely no changes needed based on A1c unless patient is experiencing hypoglycemia as an outpatient since outpatient regimen is heavily weighted towards basal insulin dosing.
--- NOTE | 2021-03-10 18:56 | Hospitalist Progress Note ---
Date of Service March 10, 2021 Assessment & Plan (1) Acute on chronic heart failure with preserved ejection fraction (HFpEF): Volume status slowly improving with net neg fluid balance & decreasing weights. Continue Bumex 4 mg IV twice daily. BMP daily. Continue BB. Not FELIX or ARB candidate due to CKD. (2) CKD (chronic kidney disease), stage IV: Baseline Cr 1.9 to-2.6. Baseline CrCl 20s. Creatinine stable / modestly improving daily with diuresis. Continue BMP daily. (3) Iron deficiency anemia: IV venofer per nephrology management. Repeat CBC am. (4) Paroxysmal atrial fibrillation: NSR on tele. Cont BB. Warfarin has been on hold due to supratherapeutic INR. Repeat INR in am; likely resume warfarin next 24 hrs. (5) Stenosis of trachea: Tracheal stenosis/subglottic stenosis- Status post recent procedure at [email or web address]. Follows with Dr Mondragon locally. No issues at thsi time. (6) SGS (subglottic stenosis): See above (7) Diabetes type 2, uncontrolled: Hemoglobin A1c 8.8%. Continue novolog with lantus. (8) Asthma: No exacerbation at present (9) Depression: Continue duloxetine 30 mg daily (10) Essential hypertension: Controlled with current medications. (11) Obstructive sleep apnea of adult: CPAP at bedtime. 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 fib + h/o DVT. INR 3 today. Likely resume coumadin tomorrow. INR am. cont PT/OT Admission and Anticipated Discharge Date Admission Date: March 07, 2021 Subjective patient c/o dyspnea on exertion and weakness when she worked with PT it was hard to walk "because my legs are heavy" (from edema) eating ok no chest pain tele overnight wnl Review of Systems Constitutional: + fatigue; no fever and no chills Respiratory: + dyspnea on exertion Cardiovascular: + orthopnea and + edema; no chest pain Gastrointestinal: no abdominal pain, no nausea and no vomiting Physical Exam Constitutional: + morbidly obese; no acute distress and no altered mental status ENMT: external ear and nose normal, oropharynx normal Respiratory: no respiratory distress Auscultation: + diminished lung sounds (bases) and + rales (bases) Cardiovascular: Rate/Rhythm: regular rate and regular rhythm Heart Sounds: normal S1 and normal S2 Vessels: + JVD, posterior tibial pulses present and dorsalis pedis pulses present Extremities: + edema (2-3+ b/l ) Gastrointestinal (Abdomen): normal bowel sounds, soft, nontender, no hepatosplenomegaly Psychiatric: A+Ox3, euthymic affect Results & Data Results & Data ([facility]) Vital Signs (Past 12 Hours) Vital Signs Temp Pulse Resp BP Pulse Ox 03/10/21 15:43 37.0 C 60 18 138/65 99 03/10/21 11:18 36.6 C 63 20 141/76 H 94 03/10/21 07:17 36.6 C 76 20 122/71 96 Laboratory Results Laboratory Results - last 24 hr 03/09/21 03/10/21 03/10/21 20:12 06:48 06:48 WBC 7.40 RBC 3.17 L Hgb 8.4 L Hct 27.3 L MCV 86.1 MCH 26.5 MCHC 30.8 L RDW Std Deviation 52.8 H RDW Coeff of Melonie 16.7 H Plt Count 119 L MPV 11.3 H Immature Gran % (Auto) 0.4 Neut % (Auto) 69.8 Lymph % (Auto) 13.4 [place] % (Auto) 12.8 Eos % (Auto) 3.5 Baso % (Auto) 0.1 Neut # (Auto) 5.16 Lymph # (Auto) 0.99 L [place] # (Auto) 0.95 H Eos # (Auto) 0.26 Baso # (Auto) 0.01 Immature Gran # (Auto) 0.03 H PT 27.7 H INR 3.0 H APTT 46.5 H* PTT Ratio 1.8 Sodium Potassium Chloride Carbon Dioxide Anion Gap BUN Creatinine Est Cr Clr Drug Dosing Est GFR ( Amer) Est GFR (Non-Af Amer) BUN/Creatinine Ratio Glucose POC Glucose 76 Calcium Phosphorus Magnesium Albumin 03/10/21 03/10/21 03/10/21 06:48 07:15 09:18 WBC RBC Hgb Hct MCV MCH MCHC RDW Std Deviation RDW Coeff of Melonie Plt Count MPV Immature Gran % (Auto) Neut % (Auto) Lymph % (Auto) [place] % (Auto) Eos % (Auto) Baso % (Auto) Neut # (Auto) Lymph # (Auto) [place] # (Auto) Eos # (Auto) Baso # (Auto) Immature Gran # (Auto) PT INR APTT PTT Ratio Sodium 144 Potassium 3.8 Chloride 109 H Carbon Dioxide 30 Anion Gap 5.0 BUN 85 H Creatinine 2.63 H Est Cr Clr Drug Dosing 20.9 Est GFR ( Amer) 19.6 Est GFR (Non-Af Amer) 16.9 BUN/Creatinine Ratio 32.3 H Glucose 77 POC Glucose 84 162 H Calcium 8.5 Phosphorus 3.4 Magnesium 2.6 H Albumin 2.7 L 03/10/21 03/10/21 03/10/21 09:56 11:20 11:52 WBC RBC Hgb Hct MCV MCH MCHC RDW Std Deviation RDW Coeff of Melonie Plt Count MPV Immature Gran % (Auto) Neut % (Auto) Lymph % (Auto) [place] % (Auto) Eos % (Auto) Baso % (Auto) Neut # (Auto) Lymph # (Auto) [place] # (Auto) Eos # (Auto) Baso # (Auto) Immature Gran # (Auto) PT INR APTT PTT Ratio Sodium Potassium Chloride Carbon Dioxide Anion Gap BUN Creatinine Est Cr Clr Drug Dosing Est GFR ( Amer) Est GFR (Non-Af Amer) BUN/Creatinine Ratio Glucose POC Glucose 146 H 115 H 119 H Calcium Phosphorus Magnesium Albumin 03/10/21 16:29 WBC RBC Hgb Hct MCV MCH MCHC RDW Std Deviation RDW Coeff of Melonie Plt Count MPV Immature Gran % (Auto) Neut % (Auto) Lymph % (Auto) [place] % (Auto) Eos % (Auto) Baso % (Auto) Neut # (Auto) Lymph # (Auto) [place] # (Auto) Eos # (Auto) Baso # (Auto) Immature Gran # (Auto) PT INR APTT PTT Ratio Sodium Potassium Chloride Carbon Dioxide Anion Gap BUN Creatinine Est Cr Clr Drug Dosing Est GFR ( Amer) Est GFR (Non-Af Amer) BUN/Creatinine Ratio Glucose POC Glucose 138 H Calcium Phosphorus Magnesium Albumin PG Care Time/CCT Total # of Minutes Spent Total Time Spent with Patient: Total time spent is greater than 50% in coordination of care (as documented) at patient's floor/unit and/or counseling patient: Coding Level of Care Code 17692 Subseq Hosp Care Lvl 2 Diagnoses Acute on chronic heart failure with preserved ejection fraction (HFpEF) I50.33 CKD (chronic kidney disease), stage IV N18.4 Iron deficiency anemia D50.8 Iron deficiency anemia type: other iron deficiency Paroxysmal atrial fibrillation I48.0 Stenosis of trachea J39.8 SGS (subglottic stenosis) J38.6 Diabetes type 2, uncontrolled E11.65 Glycemic state: with hyperglycemia Asthma J45.40 Asthma complication type: uncomplicated Asthma persistence: persistent Asthma severity: moderate Depression F32.9 Active/Remission status: remission status unspecified Depression Type: major depressive disorder Major depression recurrence: unspecified whether recurrent Essential hypertension I10 Obstructive sleep apnea of adult G47.33 GERD without esophagitis K21.9 Hypothyroidism E03.9 Hypothyroidism type: unspecified Dyslipidemia E78.5 Oropharyngeal dysphagia R13.12 Elevated liver transaminase level R74.01 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 Z79.01 (1) Depression Active/Remission status: remission status unspecified Depression Type: major depressive disorder Major depression recurrence: unspecified whether recurrent Qualified Code(s): F32.9 - Major depressive disorder, single episode, unspecified (2) Hypothyroidism Hypothyroidism type: unspecified Qualified Code(s): E03.9 - Hypothyroidism, unspecified (3) Diabetes type 2, uncontrolled Glycemic state: with hyperglycemia Qualified Code(s): E11.65 - Type 2 diabetes mellitus with hyperglycemia (4) Iron deficiency anemia Iron deficiency anemia type: other iron deficiency Qualified Code(s): D50.8 - Other iron deficiency anemias (5) Asthma Asthma complication type: uncomplicated Asthma persistence: persistent Asthma severity: moderate Qualified Code(s): J45.40 - Moderate persistent asthma, uncomplicated
[2021-03-10] MEDS: clonazePAM 0.5 MG TAB PO SCH (20:37)
[2021-03-10] MEDS: EZETIMIBE/SIMVASTATIN 10/40MG 1 TAB TAB PO SCH (20:38)
[2021-03-10] MEDS: METOCLOPRAMIDE HCL 10 MG TABLET PO SCH (20:38)
[2021-03-10] MEDS: AZELASTINE SCH (20:40)
[2021-03-11] MEDS: LEVOTHYROXINE SODIUM 88 MCG TABLET PO SCH (05:33)
[2021-03-11 05:40] LABS: Hematocrit (blood only) 27.8 % (37-47); Hemoglobin 8.5 g/dL (12.0-16.0); Mean Corpuscular Hemoglobin 26.2 pg (25-34); Mean Corpuscular Hgb Conc 30.6 g/dL (32-36); Mean Corpuscular Volume 85.8 fL (80-100); Mean Platelet Volume 10.8 fL (7.4-10.4); Platelet Count 118 K/uL (130-400); RDW Coefficient of Variation 16.6 % (11.5-14.5); RDW Standard Deviation 52.2 fL (36.4-46.3); Red Blood Count 3.24 M/uL (4.2-5.4); White Blood Count 7.73 K/uL (4.8-10.8)
[2021-03-11 06:04] LABS: Albumin Level 2.7 gm/dl (3.4-5.0); BUN Creatinine Ratio 30.3 (10-20); Calcium 8.5 mg/dl (8.5-10.1); Creatinine Clr Calc Pharmacy 22.3 ml/min; Est GFR (African American) 21.1 ml/min; Est GFR (Non-African American) 18.2 ml/min; Potassium 3.6 mmol/L (3.5-5.1)
[2021-03-11 06:05] LABS: Phosphorus 3.7 mg/dl (2.5-4.9)
[2021-03-11 06:53] LABS: Folate (Folic Acid) 14.3 ng/ml (>5.38)
[2021-03-11] MEDS: INSULIN ASPART 100 UNITS/ML 3 ML PEN SC SCH ×4 (08:29→22:09)
[2021-03-11] MEDS: BUMETANIDE 4 MG in SYRINGE 0 ML IV SCH ×2 (08:41→17:13)
[2021-03-11] MEDS: allopurinoL 100 MG TAB PO SCH (08:41)
[2021-03-11] MEDS: CALCITRIOL 0.25 MCG CAPSULE PO SCH (08:42)
[2021-03-11] MEDS: DOCUSATE SODIUM 100 MG CAP PO SCH ×4 (08:42→20:30)
[2021-03-11] MEDS: DULoxetine HCL 30 MG CAP PO SCH (08:42)
[2021-03-11] MEDS: ISOSORBIDE MONO EXTENDED REL 30 MG TABCR PO SCH ×3 (08:43→20:31)
[2021-03-11] MEDS: guaiFENesin 600 MG TABCR PO SCH ×2 (08:43→20:36)
[2021-03-11] MEDS: FEXOFENADINE HCL 180 MG TAB PO SCH (08:43)
[2021-03-11] MEDS: AZELASTINE SCH ×2 (08:45→20:32)
[2021-03-11] MEDS: FENOFIBRIC ACID PO SCH (08:46)
[2021-03-11] MEDS: POTASSIUM CHLORIDE CRTAB 20 MEQ TABCR PO SCH (08:47)
[2021-03-11] MEDS: PANTOprazole 40 MG TAB PO SCH (08:47)
[2021-03-11] MEDS: POLYETHYLENE (MIRALAX) 17 GM PACK PO SCH ×2 (08:48→20:36)
[2021-03-11] MEDS: METOPROLOL TARTRATE 25 MG TAB PO SCH ×2 (08:58→22:10)
[2021-03-11 09:35] LABS: INR 2.1 (0.9-1.1); Prothrombin Time 19.9 Seconds (9.0-12.0)
[2021-03-11] MEDS: IRON SUCROSE 200 MG in 0.9 % SODIUM CHLORIDE 100 ML IV SCH (10:18)
[2021-03-11] MEDS ORDERED: INSULIN GLARGINE SOLOSTAR 100 UNITS/ML 3 ML PEN SC ONE (11:30)
--- NOTE | 2021-03-11 14:06 | Pharmacy Report ---
Pharmacy Glycemic Short Note 2 - Date of Service March 11, 2021 - Glycemic Short BSG Results (Last 24 hours): 03/10/21 03/10/21 03/11/21 16:29 20:34 00:48 Glucose POC Glucose 138 H 131 H 124 H 03/11/21 03/11/21 03/11/21 04:55 05:27 07:18 Glucose 92 POC Glucose 94 84 03/11/21 11:20 Glucose POC Glucose 101 H OUTPATIENT ANTIDIABETIC REGIMEN: * Insulin glargine (Basaglar) 45 units SQ BID * NovoLog 3-6 units SQ with meals * A1c = 6.5% on 03/08/21 ASSESSMENT: 03/11 * BSGs well-controlled yesterday with 45 units of Lantus only (carb ratio was discontinued) * No hypoglycemia observed, will look to achieve more balanced split of basal/bolus * Fasting BSG of 84 mg/dL this morning - will decrease basal insulin today and restart carb coverage 03/10 * BSGs tightly controlled yesterday, ranging 60-121 mg/dL * Received 19 units of insulin (10 units of basal and 9 units of bolus) * Fasting BSG of 84 mg/dL this morning * RN notified pharmacist that patient inadvertently received 45 unit Lantus dose this morning * Appetite improving, will hold carb coverage for now and continue to check more frequent BSGs to monitor for hypoglycemia 03/09 * Pt has received 45 units of insulin over the past 24hrs * 45 units of basal with Lantus * 0 units of bolus with NovoLog * BSGs 119-65/20-362-28-60-104 mg/dl * No additional basal insulin required yesterday. Pt received her outpatient dose of Lantus 45units yesterday morning. No Lantus given at HS when BSG = 81mg/dl * No prandial insulin given yesterday (Pt NPO). Diet advanced to clears. * Will continue with reduced outpatient dosing of Lantus for decreased PO intake and titrate based on BSG trends. 03/08 * 75yo T2DM female with excellent outpatient control per recent A1c * Pt with LOW BSG today secondary to too much basal insulin on board * Outpatient regimen is heavily weighted towards basal insulin (basal insulin = 90 units; bolus insulin max 18 units) indicating that basal insulin is covering some prandial requirements. * Pt with LOW BSG when outpatient basal insulin continued with NPO status * Will adjust/decrease insulin regimen for NPO and continue to titrate based on BSG trends. PLAN FOR INPATIENT GLYCEMIC CONTROL: * Basal insulin: decrease * Lantus 0-20 units SC BID (see EHR for details) * Bolus insulin - add back carb coverage * NovoLog per scale ACHS or Q6hrs while NPO * Goal Range: Low 110 mg/dL - High 140 mg/dL * Correction Factor: 30 mg/dL/unit * Nutritional / Prandial insulin per carb ratio of 1 unit per 10 grams CHO consumed PLAN FOR DISCHARGE: * TBD - current insulin needs are much lower than outpatient doses
--- NOTE | 2021-03-11 14:19 | Nephrology Progress Note ---
Date of Service March 11, 2021 Assessment & Plan (1) CKD (chronic kidney disease), stage IV: Adequate urine output. Volume status improving. Electrolytes acceptable. No overt uremic symptoms. Kidney function stable. No emergent indication for dialysis. Medications appropriately dosed for kidney function. Document strict I/O's and daily weight. Repeat metabolic profile tomorrow AM. (2) Essential hypertension: BP acceptable. No change in treatment at this time. Volume status improving. (3) Acute on chronic heart failure with preserved ejection fraction (HFpEF): Goal is to maintain net negative fluid balance >1 L/d. (4) Chronic anemia: Venofer 200 mg IV x 3rd dose of 5 today. (5) Secondary hyperparathyroidism of renal origin: Calcitriol 0.5 daily. Calcium acceptable. Admission and Anticipated Discharge Date Admission Date: March 07, 2021 Subjective No acute events overnight. Dyspnea persists. Ambulating in room today. Activity tolerance remains limited. No chest pain. Appetite is good. Good urine excellent. Review of Systems Review of Systems: All systems reviewed & are unremarkable except as noted in HPI & below Physical Exam Constitutional: well developed and + obese; no acute distress Eyes: no scleral abnormality and no corneal abnormality ENMT: Mouth: no oral mucosal abnormality and oral mucous membranes not dry Neck: normal visual inspection and trachea midline Respiratory: + labored breathing; no respiratory distress Auscultation: lungs clear to auscultation bilaterally, + rales and + wheezes Cardiovascular: Rate/Rhythm: regular rate Heart Sounds: normal S1 and normal S2 Vessels: + JVD Extremities: + edema Musculoskeletal: Extremities: no cyanosis and no clubbing Skin: normal turgor; no lesions Neurologic: Motor/Sensory: no tremor and no asterixis Psychiatric: Orientation: alert and oriented x 3 Results & Data ([facility]) Vital Signs (Past 12 Hours) Vital Signs Temp Pulse Pulse Resp BP Pulse Ox 03/11/21 11:42 36.7 C 64 20 129/78 100 03/11/21 07:44 36.9 C 73 18 144/76 H 99 03/11/21 07:07 75 03/11/21 04:12 36.5 C 55 L 20 145/69 H 98 03/11/21 03:49 59 L 13 92 Laboratory Results Laboratory Results - last 24 hr 03/10/21 03/10/21 03/11/21 16:29 20:34 00:48 WBC RBC Hgb Hct MCV MCH MCHC RDW Std Deviation RDW Coeff of Melonie Plt Count MPV PT INR Sodium Potassium Chloride Carbon Dioxide Anion Gap BUN Creatinine Est Cr Clr Drug Dosing Est GFR ( Amer) Est GFR (Non-Af Amer) BUN/Creatinine Ratio Glucose POC Glucose 138 H 131 H 124 H Calcium Phosphorus Albumin Vitamin B12 Folate 03/11/21 03/11/21 03/11/21 04:55 05:27 05:27 WBC 7.73 RBC 3.24 L Hgb 8.5 L Hct 27.8 L MCV 85.8 MCH 26.2 MCHC 30.6 L RDW Std Deviation 52.2 H RDW Coeff of Melonie 16.6 H Plt Count 118 L MPV 10.8 H PT INR Sodium 143 Potassium 3.6 Chloride 108 H Carbon Dioxide 32 Anion Gap 3.0 BUN 75 H Creatinine 2.47 H Est Cr Clr Drug Dosing 22.3 Est GFR ( Amer) 21.1 Est GFR (Non-Af Amer) 18.2 BUN/Creatinine Ratio 30.3 H Glucose 92 POC Glucose 94 Calcium 8.5 Phosphorus 3.7 Albumin 2.7 L Vitamin B12 Folate 03/11/21 03/11/21 03/11/21 05:27 07:18 09:05 WBC RBC Hgb Hct MCV MCH MCHC RDW Std Deviation RDW Coeff of Melonie Plt Count MPV PT 19.9 H INR 2.1 H Sodium Potassium Chloride Carbon Dioxide Anion Gap BUN Creatinine Est Cr Clr Drug Dosing Est GFR ( Amer) Est GFR (Non-Af Amer) BUN/Creatinine Ratio Glucose POC Glucose 84 Calcium Phosphorus Albumin Vitamin B12 966 Folate 14.30 03/11/21 11:20 WBC RBC Hgb Hct MCV MCH MCHC RDW Std Deviation RDW Coeff of Melonie Plt Count MPV PT INR Sodium Potassium Chloride Carbon Dioxide Anion Gap BUN Creatinine Est Cr Clr Drug Dosing Est GFR ( Amer) Est GFR (Non-Af Amer) BUN/Creatinine Ratio Glucose POC Glucose 101 H Calcium Phosphorus Albumin Vitamin B12 Folate PG Care Time/CCT Total # of Minutes Spent Total Time Spent with Patient: Total time spent is greater than 50% in coordination of care (as documented) at patient's floor/unit and/or counseling patient: Coding Level of Care Code 53421 Subseq Hosp Care Lvl 3 Diagnoses CKD (chronic kidney disease), stage IV N18.4 Essential hypertension I10 Acute on chronic heart failure with preserved ejection fraction (HFpEF) I50.33 Chronic anemia D64.9 Secondary hyperparathyroidism of renal origin N25.81
[2021-03-11] MEDS ORDERED: WARFARIN SOD 5 MG TAB PO ONE (18:26)
[2021-03-11] MEDS: ALBUTEROL HFA 8 GM INHALER INH SCH ×2 (19:10→19:11)
[2021-03-11] MEDS: clonazePAM 0.5 MG TAB PO SCH (20:29)
[2021-03-11] MEDS: DICLOFENAC SOD 1% GEL 100 GM TUBE EXT SCH ×2 (20:30→20:36)
[2021-03-11] MEDS: METOCLOPRAMIDE HCL 10 MG TABLET PO SCH (20:32)
[2021-03-11] MEDS: EZETIMIBE/SIMVASTATIN 10/40MG 1 TAB TAB PO SCH (20:33)
--- NOTE | 2021-03-11 21:08 | Hospitalist Progress Note ---
Date of Service March 11, 2021 Assessment & Plan (1) Acute on chronic heart failure with preserved ejection fraction (HFpEF): Volume status continues to improve with stable BUN & CR. Continue Bumex 4 mg IV twice daily. BMP daily. Continue BB. Not FELIX or ARB candidate due to CKD. (2) Chest heaviness: likely due to pulm edema poor candidate for invasive testing for CAD asthma could be playing a role as well some of her chest discomfort is musculoskeletal - reproducible on exam add voltaren gel qid for that pain diurese add albuterol q6h (3) CKD (chronic kidney disease), stage IV: Baseline Cr 1.9 to-2.6. Baseline CrCl 20s. Creatinine stable with diuresis. Continue BMP daily. (4) Iron deficiency anemia: IV venofer per nephrology management. CBC with moderate anemia but stable. (5) Paroxysmal atrial fibrillation: NSR on tele. Cont BB. INR about 2 today. Resume coumadin today - give 5mg x 1. Repeat INR in am. 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 Follows with Dr Mondragon locally. (7) SGS (subglottic stenosis): See above (8) Diabetes type 2, uncontrolled: Hemoglobin A1c 8.8%. Continue novolog with lantus. Control acceptable at this time. (9) Asthma: No exacerbation at present "chest heaviness" could be from such but more likely it is from her CHF/volume overload add scheduled albuterol q6h however given mild wheeze on exam today (10) Depression: Continue duloxetine 30 mg daily (11) Essential hypertension: Controlled with current medications. (12) Obstructive sleep apnea of adult: CPAP at bedtime. (13) GERD without esophagitis: Continue pantoprazole and metoclopramide (14) Hypothyroidism: Continue levothyroxine 88 mcg daily TSH 7.2 early January Repeat TSH in am (15) Dyslipidemia: Continue fenofibric acid and simvastatin/Zetia (16) Oropharyngeal dysphagia: Video swallow showed minimal aspiration Cont minced/moist diet (17) Elevated liver transaminase level: suspect hepatic congestion from volume overload repeat in 2 days for stability (18) MCC (current) use of anticoagulants: resume coumadin today INR in am cont PT/OT updated pt's sister by phone today Admission and Anticipated Discharge Date Admission Date: March 07, 2021 Subjective patient states she has had "chest heaviness" for 1-2 months. present "almost every day" and lasts for hours - worse with activity. some cough - mild. legs feel heavy - similar to yesterday. worked with PT - did ok. eating fine. no new events. tele - NSR. Review of Systems Respiratory: + dyspnea on exertion Cardiovascular: as per Subjective / HPI, + dyspnea on exertion, + orthopnea and + edema; no dyspnea at rest Gastrointestinal: no abdominal pain, no nausea and no vomiting Physical Exam Constitutional: + morbidly obese; no acute distress and no altered mental status ENMT: external ear and nose normal, oropharynx normal Respiratory: no respiratory distress Auscultation: + diminished lung sounds (bases), + rales (bases) and + wheezes (end-exp b/l ) Cardiovascular: Rate/Rhythm: regular rate and regular rhythm Heart Sounds: normal S1 and normal S2 Vessels: + JVD, posterior tibial pulses present and dorsalis pedis pulses present Extremities: + edema (2-3+ b/l -- no change ) Chest (Breasts): Additional Comments: very tender to palpation over sternal region Gastrointestinal (Abdomen): normal bowel sounds, soft, nontender, no hepatosplenomegaly Psychiatric: A+Ox3, euthymic affect Results & Data Results & Data ([facility]) Vital Signs (Past 12 Hours) Vital Signs Temp Pulse Resp BP Pulse Ox 03/11/21 19:53 36.9 C 71 18 142/71 H 99 03/11/21 19:11 52 L 18 98 03/11/21 16:01 36.7 C 68 18 130/65 100 03/11/21 11:42 36.7 C 64 20 129/78 100 Laboratory Results Laboratory Results - last 24 hr 03/11/21 03/11/21 03/11/21 00:48 04:55 05:27 WBC RBC Hgb Hct MCV MCH MCHC RDW Std Deviation RDW Coeff of Melonie Plt Count MPV PT INR Sodium 143 Potassium 3.6 Chloride 108 H Carbon Dioxide 32 Anion Gap 3.0 BUN 75 H Creatinine 2.47 H Est Cr Clr Drug Dosing 22.3 Est GFR ( Amer) 21.1 Est GFR (Non-Af Amer) 18.2 BUN/Creatinine Ratio 30.3 H Glucose 92 POC Glucose 124 H 94 Calcium 8.5 Phosphorus 3.7 Albumin 2.7 L Vitamin B12 Folate 03/11/21 03/11/21 03/11/21 05:27 05:27 07:18 WBC 7.73 RBC 3.24 L Hgb 8.5 L Hct 27.8 L MCV 85.8 MCH 26.2 MCHC 30.6 L RDW Std Deviation 52.2 H RDW Coeff of Melonie 16.6 H Plt Count 118 L MPV 10.8 H PT INR Sodium Potassium Chloride Carbon Dioxide Anion Gap BUN Creatinine Est Cr Clr Drug Dosing Est GFR ( Amer) Est GFR (Non-Af Amer) BUN/Creatinine Ratio Glucose POC Glucose 84 Calcium Phosphorus Albumin Vitamin B12 966 Folate 14.30 03/11/21 03/11/21 03/11/21 09:05 11:20 16:34 WBC RBC Hgb Hct MCV MCH MCHC RDW Std Deviation RDW Coeff of Melonie Plt Count MPV PT 19.9 H INR 2.1 H Sodium Potassium Chloride Carbon Dioxide Anion Gap BUN Creatinine Est Cr Clr Drug Dosing Est GFR ( Amer) Est GFR (Non-Af Amer) BUN/Creatinine Ratio Glucose POC Glucose 101 H 149 H Calcium Phosphorus Albumin Vitamin B12 Folate 03/11/21 20:35 WBC RBC Hgb Hct MCV MCH MCHC RDW Std Deviation RDW Coeff of Melonie Plt Count MPV PT INR Sodium Potassium Chloride Carbon Dioxide Anion Gap BUN Creatinine Est Cr Clr Drug Dosing Est GFR ( Amer) Est GFR (Non-Af Amer) BUN/Creatinine Ratio Glucose POC Glucose 141 H Calcium Phosphorus Albumin Vitamin B12 Folate PG Care Time/CCT Total # of Minutes Spent Total Time Spent with Patient: Total time spent is greater than 50% in coordination of care (as documented) at patient's floor/unit and/or counseling patient: Coding Level of Care Code 21413 Subseq Hosp Care Lvl 3 Diagnoses Acute on chronic heart failure with preserved ejection fraction (HFpEF) I50.33 Chest heaviness R07.89 CKD (chronic kidney disease), stage IV N18.4 Iron deficiency anemia D50.8 Iron deficiency anemia type: other iron deficiency Paroxysmal atrial fibrillation I48.0 Stenosis of trachea J39.8 SGS (subglottic stenosis) J38.6 Diabetes type 2, uncontrolled E11.65 Glycemic state: with hyperglycemia Asthma J45.40 Asthma complication type: uncomplicated Asthma persistence: persistent Asthma severity: moderate Depression F32.9 Active/Remission status: remission status unspecified Depression Type: major depressive disorder Major depression recurrence: unspecified whether recurrent Essential hypertension I10 Obstructive sleep apnea of adult G47.33 GERD without esophagitis K21.9 Hypothyroidism E03.9 Hypothyroidism type: unspecified Dyslipidemia E78.5 Oropharyngeal dysphagia R13.12 Elevated liver transaminase level R74.01 MCC (current) use of anticoagulants Z79.01 (1) Depression Active/Remission status: remission status unspecified Depression Type: major depressive disorder Major depression recurrence: unspecified whether recurrent Qualified Code(s): F32.9 - Major depressive disorder, single episode, unspecified (2) Hypothyroidism Hypothyroidism type: unspecified Qualified Code(s): E03.9 - Hypothyroidism, unspecified (3) Diabetes type 2, uncontrolled Glycemic state: with hyperglycemia Qualified Code(s): E11.65 - Type 2 diabetes mellitus with hyperglycemia (4) Iron deficiency anemia Iron deficiency anemia type: other iron deficiency Qualified Code(s): D50.8 - Other iron deficiency anemias (5) Asthma Asthma complication type: uncomplicated Asthma persistence: persistent Asthma severity: moderate Qualified Code(s): J45.40 - Moderate persistent asthma, uncomplicated
[2021-03-11] MEDS: INSULIN GLARGINE SOLOSTAR 100 UNITS/ML 3 ML PEN SC SCH (22:10)
[2021-03-12] MEDS: ALBUTEROL HFA 8 GM INHALER INH SCH ×4 (00:29→19:28)
[2021-03-12] MEDS: LEVOTHYROXINE SODIUM 88 MCG TABLET PO SCH (06:24)
[2021-03-12 07:16] LABS: INR 1.9 (0.9-1.1)
[2021-03-12 07:44] LABS: BUN Creatinine Ratio 28.1 (10-20); Calcium 8.5 mg/dl (8.5-10.1); Creatinine Clr Calc Pharmacy 23.3 ml/min; Est GFR (African American) 22.2 ml/min; Est GFR (Non-African American) 19.1 ml/min; Potassium 3.6 mmol/L (3.5-5.1)
[2021-03-12 07:55] LABS: Thyroid Stimulating Hormone 2.69 uIu/ml (0.300-4.500)
[2021-03-12] MEDS: INSULIN ASPART 100 UNITS/ML 3 ML PEN SC SCH ×4 (08:13→21:05)
[2021-03-12] MEDS: allopurinoL 100 MG TAB PO SCH (08:17)
[2021-03-12] MEDS: BUMETANIDE 4 MG in SYRINGE 0 ML IV SCH ×2 (08:17→17:28)
[2021-03-12] MEDS: DICLOFENAC SOD 1% GEL 100 GM TUBE EXT SCH ×4 (08:18→20:39)
[2021-03-12] MEDS: CALCITRIOL 0.25 MCG CAPSULE PO SCH (08:18)
[2021-03-12] MEDS: DOCUSATE SODIUM 100 MG CAP PO SCH ×4 (08:18→20:39)
[2021-03-12] MEDS: DULoxetine HCL 30 MG CAP PO SCH (08:19)
[2021-03-12] MEDS: guaiFENesin 600 MG TABCR PO SCH ×2 (08:19→20:40)
[2021-03-12] MEDS: FEXOFENADINE HCL 180 MG TAB PO SCH (08:19)
[2021-03-12] MEDS: INSULIN GLARGINE SOLOSTAR 100 UNITS/ML 3 ML PEN SC SCH ×2 (08:20→21:08)
[2021-03-12] MEDS: ISOSORBIDE MONO EXTENDED REL 30 MG TABCR PO SCH ×3 (08:21→20:42)
[2021-03-12] MEDS: AZELASTINE SCH ×2 (08:22→21:51)
[2021-03-12] MEDS: METOPROLOL TARTRATE 25 MG TAB PO SCH ×2 (08:22→20:41)
[2021-03-12] MEDS: FENOFIBRIC ACID PO SCH (08:22)
[2021-03-12] MEDS: POTASSIUM CHLORIDE CRTAB 20 MEQ TABCR PO SCH (08:23)
[2021-03-12] MEDS: POLYETHYLENE (MIRALAX) 17 GM PACK PO SCH ×2 (08:23→21:51)
[2021-03-12] MEDS: PANTOprazole 40 MG TAB PO SCH (08:23)
[2021-03-12] MEDS: IRON SUCROSE 200 MG in 0.9 % SODIUM CHLORIDE 100 ML IV SCH (08:26)
--- NOTE | 2021-03-12 10:17 | Nephrology Progress Note ---
Date of Service March 12, 2021 Assessment & Plan (1) CKD (chronic kidney disease), stage IV: Adequate urine output. Volume status improving. Electrolytes acceptable. No overt uremic symptoms. Kidney function stable. No emergent indication for dialysis. Medications appropriately dosed for kidney function. Document strict I/O's and daily weight. Repeat metabolic profile tomorrow AM. (2) Essential hypertension: BP acceptable. Volume status improving. (3) Acute on chronic heart failure with preserved ejection fraction (HFpEF): Goal is to maintain net negative fluid balance >1 L/d. (4) Chronic anemia: Venofer 200 mg IV - 4 dose of 5 today. (5) Secondary hyperparathyroidism of renal origin: Calcitriol 0.5 daily. Calcium acceptable. Admission and Anticipated Discharge Date Admission Date: March 07, 2021 Subjective No acute events overnight. Beverley does not feel any better today. She continues to experience dyspnea with minimal exertion as well as persistent chest "heaviness." No change in symptoms. No fevers or chills. Review of Systems Review of Systems: All systems reviewed & are unremarkable except as noted in HPI & below Physical Exam Constitutional: well developed and + obese; no acute distress Eyes: no scleral abnormality and no corneal abnormality ENMT: Mouth: no oral mucosal abnormality and oral mucous membranes not dry Neck: normal visual inspection and trachea midline Respiratory: normal respiratory effort; no respiratory distress Auscultation: lungs clear to auscultation bilaterally, + diminished lung sounds and + rales (scattered basilar) Cardiovascular: Rate/Rhythm: regular rate Heart Sounds: normal S1 and normal S2 Extremities: + edema Musculoskeletal: Extremities: no cyanosis and no clubbing Skin: normal turgor; no lesions Neurologic: Motor/Sensory: no tremor and no asterixis Psychiatric: Orientation: alert and oriented x 3 Results & Data ([facility]) Vital Signs (Past 12 Hours) Vital Signs Temp Pulse Pulse Pulse Resp BP Pulse Ox 03/12/21 07:36 36.8 C 82 18 118/58 L 90 03/12/21 07:21 79 18 92 03/12/21 03:29 36.5 C 68 18 129/62 95 03/12/21 03:23 68 14 96 03/12/21 00:37 58 L 20 91 03/12/21 00:00 56 L 03/11/21 23:31 36.6 C 57 L 18 135/66 99 Pulse Ox 03/12/21 07:36 03/12/21 07:21 03/12/21 03:29 03/12/21 03:23 03/12/21 00:37 03/12/21 00:00 98 03/11/21 23:31 Laboratory Results Laboratory Results - last 24 hr 03/11/21 03/11/21 03/11/21 11:20 16:34 20:35 PT INR Sodium Potassium Chloride Carbon Dioxide Anion Gap BUN Creatinine Est Cr Clr Drug Dosing Est GFR ( Amer) Est GFR (Non-Af Amer) BUN/Creatinine Ratio Glucose POC Glucose 101 H 149 H 141 H Calcium TSH 03/12/21 03/12/21 03/12/21 06:39 06:39 07:18 PT 18.0 H INR 1.9 H Sodium 142 Potassium 3.6 Chloride 106 Carbon Dioxide 31 Anion Gap 5.0 BUN 67 H Creatinine 2.37 H Est Cr Clr Drug Dosing 23.3 Est GFR ( Amer) 22.2 Est GFR (Non-Af Amer) 19.1 BUN/Creatinine Ratio 28.1 H Glucose 106 H POC Glucose 123 H Calcium 8.5 TSH 2.690 Diagnostic Findings Laboratory Results - last 24 hr 03/11/21 03/11/21 03/11/21 11:20 16:34 20:35 PT INR Sodium Potassium Chloride Carbon Dioxide Anion Gap BUN Creatinine Est Cr Clr Drug Dosing Est GFR ( Amer) Est GFR (Non-Af Amer) BUN/Creatinine Ratio Glucose POC Glucose 101 H 149 H 141 H Calcium TSH 03/12/21 03/12/21 03/12/21 06:39 06:39 07:18 PT 18.0 H INR 1.9 H Sodium 142 Potassium 3.6 Chloride 106 Carbon Dioxide 31 Anion Gap 5.0 BUN 67 H Creatinine 2.37 H Est Cr Clr Drug Dosing 23.3 Est GFR ( Amer) 22.2 Est GFR (Non-Af Amer) 19.1 BUN/Creatinine Ratio 28.1 H Glucose 106 H POC Glucose 123 H Calcium 8.5 TSH 2.690 PG Care Time/CCT Total # of Minutes Spent Total Time Spent with Patient: Total time spent is greater than 50% in coordination of care (as documented) at patient's floor/unit and/or counseling patient: Coding Level of Care Code 85571 Subseq Hosp Care Lvl 3 Diagnoses CKD (chronic kidney disease), stage IV N18.4 Essential hypertension I10 Acute on chronic heart failure with preserved ejection fraction (HFpEF) I50.33 Chronic anemia D64.9 Secondary hyperparathyroidism of renal origin N25.81
[2021-03-12] MEDS ORDERED: WARFARIN SOD 2.5 MG TAB PO ONE (20:13)
--- NOTE | 2021-03-12 20:15 | Hospitalist Progress Note ---
Date of Service March 12, 2021 Assessment & Plan (1) Acute on chronic heart failure with preserved ejection fraction (HFpEF): Volume status continues to improve with stable BUN & CR. O2 weaned off. Daily weights don't look accurate based on her I's and O's. Weights should be standing scale only. Continue Bumex 4 mg IV twice daily. BMP daily. Continue BB. Not FELIX or ARB candidate due to CKD. (2) Chest heaviness: likely musculoskeletal +/- pulmonary edema +/- asthma sternal pain improved w/ voltaren gel wheezing improved with albuterol cont to diurese (3) CKD (chronic kidney disease), stage IV: Baseline Cr 1.9 to-2.6. Creatinine today 2.3. Continue BMP daily. Appreciate nephrology consultation/recs. (4) Iron deficiency anemia: IV venofer per nephrology management. dose #4 of 5 today (200mg daily). recheck cbc in 48 hours for stability. (5) Paroxysmal atrial fibrillation: NSR on tele. Cont BB. INR 1.9 today. Had been supratherapeutic at admission. Resumed coumadin on 03/11 - 5mg x 1. Will give 2.5mg today. Then 2.5mg daily thereafter. Repeat INR in am. (6) Stenosis of trachea: Tracheal stenosis/subglottic stenosis- Status post recent procedure at [facility] for such. Follows with Dr Mondragon locally. (7) SGS (subglottic stenosis): See above (8) Diabetes type 2, uncontrolled: Hemoglobin A1c 8.8%. Continue novolog with lantus. Control remains excellent here. (9) Asthma: wheezing on exam yesterday. albuterol q6h has helped w/ such. "chest heaviness" and wheezing could be from asthma but more likely it is from her CHF either way wheezing is better today (10) Depression: Continue duloxetine 30 mg daily (11) Essential hypertension: Controlled with current medications. (12) Obstructive sleep apnea of adult: CPAP at bedtime. (13) GERD without esophagitis: Continue pantoprazole and metoclopramide (14) Hypothyroidism: Continue levothyroxine 88 mcg daily TSH 7.2 early January Repeat TSH today wnl (15) Dyslipidemia: Continue fenofibric acid and simvastatin/Zetia (16) Oropharyngeal dysphagia: Video swallow showed minimal aspiration Cont minced/moist diet no issues (17) Elevated liver transaminase level: suspect hepatic congestion from volume overload repeat lfts in am (18) care home (current) use of anticoagulants: resumed coumadin on 03/11 INR 1.9 today cont coumadin with daily INR cont PT/OT - may need rehab based on initial evals very weak updated pt's sister by phone 03/11/21 Admission and Anticipated Discharge Date Admission Date: March 07, 2021 Subjective tele stable overnight patient is now off NC O2 cont with mild CARR but none at rest sternal pain improved w/ voltaren gel scheduled albuterol helping chest congestion/wheezing Review of Systems Constitutional: no fever, no chills and no anorexia Respiratory: no cough and no wheezing Cardiovascular: + edema Gastrointestinal: no abdominal pain, no nausea and no vomiting Physical Exam Constitutional: + morbidly obese; no acute distress and no altered mental status ENMT: external ear and nose normal, oropharynx normal Respiratory: no respiratory distress Auscultation: + diminished lung sounds (bases) and + rales (bases); no wheezes (resolved today ) Cardiovascular: Rate/Rhythm: regular rate and regular rhythm Heart Sounds: normal S1 and normal S2 Vessels: + JVD, posterior tibial pulses present and dorsalis pedis pulses present Extremities: + edema (2+ b/l -- no change ) Chest (Breasts): Additional Comments: nontender to palpation over sternum today Gastrointestinal (Abdomen): normal bowel sounds, soft, nontender, no h epatosplenomegaly Skin: venous stasis changes b/l legs - no superimposed cellulitis Psychiatric: A+Ox3, euthymic affect Results & Data Results & Data ([facility]) Vital Signs (Past 12 Hours) Vital Signs Temp Pulse Pulse Resp BP BP Pulse Ox 03/12/21 19:28 65 15 94 03/12/21 19:15 36.8 C 65 20 144/58 H 93 03/12/21 15:12 36.9 C 65 22 132/67 92 03/12/21 13:03 67 18 96 03/12/21 11:40 37.8 C H 80 20 99/60 L 91 Laboratory Results Laboratory Results - last 24 hr 03/11/21 03/12/21 03/12/21 20:35 06:39 06:39 PT 18.0 H INR 1.9 H Sodium 142 Potassium 3.6 Chloride 106 Carbon Dioxide 31 Anion Gap 5.0 BUN 67 H Creatinine 2.37 H Est Cr Clr Drug Dosing 23.3 Est GFR ( Amer) 22.2 Est GFR (Non-Af Amer) 19.1 BUN/Creatinine Ratio 28.1 H Glucose 106 H POC Glucose 141 H Calcium 8.5 TSH 2.690 03/12/21 03/12/21 03/12/21 07:18 11:26 16:14 PT INR Sodium Potassium Chloride Carbon Dioxide Anion Gap BUN Creatinine Est Cr Clr Drug Dosing Est GFR ( Amer) Est GFR (Non-Af Amer) BUN/Creatinine Ratio Glucose POC Glucose 123 H 187 H 144 H Calcium TSH PG Care Time/CCT Total # of Minutes Spent Total Time Spent with Patient: Total time spent is greater than 50% in coordination of care (as documented) at patient's floor/unit and/or counseling patient: Coding Level of Care Code 73245 Subseq Hosp Care Lvl 3 Diagnoses Acute on chronic heart failure with preserved ejection fraction (HFpEF) I50.33 Chest heaviness R07.89 CKD (chronic kidney disease), stage IV N18.4 Iron deficiency anemia D50.8 Iron deficiency anemia type: other iron deficiency Paroxysmal atrial fibrillation I48.0 Stenosis of trachea J39.8 SGS (subglottic stenosis) J38.6 Diabetes type 2, uncontrolled E11.65 Glycemic state: with hyperglycemia Asthma J45.40 Asthma severity: moderate Asthma persistence: persistent Asthma complication type: uncomplicated Depression F32.9 Depression Type: major depressive disorder Major depression recurrence: unspecified whether recurrent Active/Remission status: remission status unspecified Essential hypertension I10 Obstructive sleep apnea of adult G47.33 GERD without esophagitis K21.9 Hypothyroidism E03.9 Hypothyroidism type: unspecified Dyslipidemia E78.5 Oropharyngeal dysphagia R13.12 Elevated liver transaminase level R74.01 director long term care (current) use of anticoagulants Z79.01 (1) Iron deficiency anemia Iron deficiency anemia type: other iron deficiency Qualified Code(s): D50.8 - Other iron deficiency anemias (2) Diabetes type 2, uncontrolled Glycemic state: with hyperglycemia Qualified Code(s): E11.65 - Type 2 diabetes mellitus with hyperglycemia (3) Asthma Asthma severity: moderate Asthma persistence: persistent Asthma complication type: uncomplicated Qualified Code(s): J45.40 - Moderate persistent asthma, uncomplicated (4) Depression Depression Type: major depressive disorder Major depression recurrence: unspecified whether recurrent Active/Remission status: remission status unspecified Qualified Code(s): F32.9 - Major depressive disorder, single episode, unspecified (5) Hypothyroidism Hypothyroidism type: unspecified Qualified Code(s): E03.9 - Hypothyroidism, unspecified
[2021-03-12] MEDS: clonazePAM 0.5 MG TAB PO SCH (20:39)
[2021-03-12] MEDS: METOCLOPRAMIDE HCL 10 MG TABLET PO SCH (20:42)
[2021-03-12] MEDS: EZETIMIBE/SIMVASTATIN 10/40MG 1 TAB TAB PO SCH (20:43)
[2021-03-13] MEDS: ALBUTEROL HFA 8 GM INHALER INH SCH ×4 (01:06→18:25)
[2021-03-13] MEDS: LEVOTHYROXINE SODIUM 88 MCG TABLET PO SCH (05:59)
[2021-03-13 07:43] LABS: INR 2.3 (0.9-1.1); Prothrombin Time 21.6 Seconds (9.0-12.0)
[2021-03-13 08:05] LABS: BUN Creatinine Ratio 26.9 (10-20); Calcium 8.2 mg/dl (8.5-10.1); Creatinine Clr Calc Pharmacy 20.9 ml/min; Est GFR (African American) 19.8 ml/min; Est GFR (Non-African American) 17.1 ml/min; Potassium 3.5 mmol/L (3.5-5.1)
[2021-03-13] MEDS: ACETAMINOPHEN 325 MG TAB PO PRN (08:29)
[2021-03-13] MEDS: POTASSIUM CHLORIDE CRTAB 20 MEQ TABCR PO SCH (08:29)
[2021-03-13] MEDS: FEXOFENADINE HCL 180 MG TAB PO SCH (08:29)
[2021-03-13] MEDS: CALCITRIOL 0.25 MCG CAPSULE PO SCH (08:30)
[2021-03-13] MEDS: METOPROLOL TARTRATE 25 MG TAB PO SCH ×2 (08:30→21:40)
[2021-03-13] MEDS: allopurinoL 100 MG TAB PO SCH (08:30)
[2021-03-13] MEDS: PANTOprazole 40 MG TAB PO SCH (08:30)
[2021-03-13] MEDS: DOCUSATE SODIUM 100 MG CAP PO SCH ×4 (08:30→21:40)
[2021-03-13] MEDS: DULoxetine HCL 30 MG CAP PO SCH (08:30)
[2021-03-13] MEDS: AZELASTINE SCH ×2 (08:30→21:39)
[2021-03-13] MEDS: guaiFENesin 600 MG TABCR PO SCH ×2 (08:30→21:38)
[2021-03-13] MEDS: BUMETANIDE 4 MG in SYRINGE 0 ML IV SCH (08:31)
[2021-03-13] MEDS: DICLOFENAC SOD 1% GEL 100 GM TUBE EXT SCH ×4 (08:31→21:36)
[2021-03-13] MEDS: FENOFIBRIC ACID PO SCH (08:32)
[2021-03-13] MEDS: ISOSORBIDE MONO EXTENDED REL 30 MG TABCR PO SCH ×3 (08:32→21:38)
[2021-03-13] MEDS: POLYETHYLENE (MIRALAX) 17 GM PACK PO SCH ×2 (08:32→21:43)
[2021-03-13] MEDS: INSULIN GLARGINE SOLOSTAR 100 UNITS/ML 3 ML PEN SC SCH ×2 (08:33→21:30)
[2021-03-13] MEDS: INSULIN ASPART 100 UNITS/ML 3 ML PEN SC SCH ×4 (08:35→21:30)
[2021-03-13] MEDS: IRON SUCROSE 200 MG in 0.9 % SODIUM CHLORIDE 100 ML IV SCH (09:00)
--- NOTE | 2021-03-13 09:10 | Pharmacy Report ---
Pharmacy Glycemic Short Note 2 - Date of Service March 13, 2021 - Glycemic Short BSG Results (Last 24 hours): 03/12/21 03/12/21 03/12/21 11:26 16:14 20:16 Glucose POC Glucose 187 H 144 H 169 H 03/13/21 03/13/21 07:12 07:31 Glucose 122 H POC Glucose 128 H OUTPATIENT ANTIDIABETIC REGIMEN: * Insulin glargine (Basaglar) 45 units SQ BID * NovoLog 3-6 units SQ with meals * A1c = 6.5% on 03/08/21 ASSESSMENT: 03/13 * BSGs yesterday of 123, 187, 144, and 169 mg/dL * Received 35 units of insulin (20 units of basal and 15 units of prandial/correctional bolus) * Fasting BSG of 128 mg/dL this morning * Will utilize scale again today as inpatient insulin needs have been reduced compared to outpatient 03/08 * 75yo T2DM female with excellent outpatient control per recent A1c * Pt with LOW BSG today secondary to too much basal insulin on board * Outpatient regimen is heavily weighted towards basal insulin (basal insulin = 90 units; bolus insulin max 18 units) indicating that basal insulin is covering some prandial requirements. * Pt with LOW BSG when outpatient basal insulin continued with NPO status * Will adjust/decrease insulin regimen for NPO and continue to titrate based on BSG trends. PLAN FOR INPATIENT GLYCEMIC CONTROL: * Basal insulin: adjust scale * Lantus 10-20 units SC BID (see EHR for details) * Bolus insulin - continue * NovoLog per scale ACHS or Q6hrs while NPO * Goal Range: Low 110 mg/dL - High 140 mg/dL * Correction Factor: 25 mg/dL/unit * Nutritional / Prandial insulin per carb ratio of 1 unit per 8 grams CHO consumed PLAN FOR DISCHARGE: * HbA1c of 6.5% suggests excellent outpatient glycemic control * Lantus dose may need to be adjusted based on appetite at time of discharge * Home dose of Lantus 45 units SC BID will likely need to be reduced * At this point, Lantus 10-15 units SC BID is likely adequate * Novolog 3-6 units SC with meals seems appropriate at this time * Will continue to follow and adjust discharge recs as necessary
--- NOTE | 2021-03-13 10:03 | Nephrology Progress Note ---
Date of Service March 13, 2021 Assessment & Plan (1) CKD (chronic kidney disease), stage IV: Adequate urine output. Volume status improving. Electrolytes acceptable. Additional 20 mEq PO now. Repeat BMP + Magnesium in the AM. No overt uremic symptoms. Kidney function stable. No emergent indication for dialysis. Medications appropriately dosed for kidney function. Document strict I/O's and daily weight. Repeat metabolic profile tomorrow AM. (2) Essential hypertension: BP acceptable. Volume status improving. (3) Acute on chronic heart failure with preserved ejection fraction (HFpEF): Goal is to maintain net negative fluid balance >1 L/d. Bumex switched to PO starting this afternoon. (4) Chronic anemia: Venofer 200 mg IV - 5 of 5 today. (5) Secondary hyperparathyroidism of renal origin: Calcitriol 0.5 daily. Calcium acceptable. Admission and Anticipated Discharge Date Admission Date: March 07, 2021 Subjective No acute events overnight. Beverley reports improvement today. Dyspnea improved. Out of bed to bathroom. Denies lightheadedness. Chest heaviness also improving. Review of Systems Review of Systems: All systems reviewed & are unremarkable except as noted in HPI & below Physical Exam Constitutional: well developed and + obese; no acute distress Eyes: no scleral abnormality and no corneal abnormality ENMT: Mouth: no oral mucosal abnormality and oral mucous membranes not dry Neck: normal visual inspection and trachea midline Respiratory: normal respiratory effort; no respiratory distress Auscultation: lungs clear to auscultation bilaterally, + diminished lung sounds and + rales (scattered basilar) Cardiovascular: Rate/Rhythm: regular rate Heart Sounds: normal S1 and normal S2 Extremities: + edema Musculoskeletal: Extremities: no cyanosis and no clubbing Skin: normal turgor; no lesions Neurologic: Motor/Sensory: no tremor and no asterixis Psychiatric: Orientation: alert and oriented x 3 Results & Data ([facility]) Vital Signs (Past 12 Hours) Vital Signs Temp Pulse Pulse Pulse Resp BP Pulse Ox 03/13/21 07:32 37.2 C 76 146/68 H 98 03/13/21 07:06 66 18 97 03/13/21 03:59 37.4 C 81 20 134/64 99 03/13/21 03:00 60 03/13/21 01:07 62 16 95 03/13/21 00:00 03/12/21 23:13 36.6 C 59 L 20 138/56 L 98 03/12/21 22:35 60 17 97 Pulse Ox 03/13/21 07:32 03/13/21 07:06 03/13/21 03:59 03/13/21 03:00 03/13/21 01:07 03/13/21 00:00 98 03/12/21 23:13 03/12/21 22:35 Laboratory Results Laboratory Results - last 24 hr 03/12/21 03/12/21 03/12/21 11:26 16:14 20:16 PT INR Sodium Potassium Chloride Carbon Dioxide Anion Gap BUN Creatinine Est Cr Clr Drug Dosing Est GFR ( Amer) Est GFR (Non-Af Amer) BUN/Creatinine Ratio Glucose POC Glucose 187 H 144 H 169 H Calcium AST ALT 03/13/21 03/13/21 03/13/21 07:12 07:12 07:31 PT 21.6 H INR 2.3 H Sodium 141 Potassium 3.5 Chloride 104 Carbon Dioxide 29 Anion Gap 7.0 BUN 70 H Creatinine 2.60 H Est Cr Clr Drug Dosing 20.9 Est GFR ( Amer) 19.8 Est GFR (Non-Af Amer) 17.1 BUN/Creatinine Ratio 26.9 H Glucose 122 H POC Glucose 128 H Calcium 8.2 L AST 37 ALT 42 PG Care Time/CCT Total # of Minutes Spent Total Time Spent with Patient: Total time spent is greater than 50% in coordination of care (as documented) at patient's floor/unit and/or counseling patient: Coding Level of Care Code 10776 Subseq Hosp Care Lvl 3 Diagnoses CKD (chronic kidney disease), stage IV N18.4 Essential hypertension I10 Acute on chronic heart failure with preserved ejection fraction (HFpEF) I50.33 Chronic anemia D64.9 Secondary hyperparathyroidism of renal origin N25.81
[2021-03-13] MEDS ORDERED: POTASSIUM CHLORIDE CRTAB 20 MEQ TABCR PO STA (10:04)
[2021-03-13] MEDS ORDERED: WARFARIN SOD 2.5 MG TAB PO SCH (16:00)
[2021-03-13] MEDS: BUMETANIDE 1 MG TAB PO SCH (17:05)
--- NOTE | 2021-03-13 19:18 | Hospitalist Progress Note ---
Date of Service March 13, 2021 Assessment & Plan (1) Acute on chronic heart failure with preserved ejection fraction (HFpEF): Volume status continues to improve with stable BUN & CR. O2 weaned off. Daily weights don't look accurate based on her I's and O's. Weights should be standing scale only. Continue Bumex 4 mg twice daily - changed to PO today by Dr Sanchez. BMP daily. Continue BB. Not FELIX or ARB candidate due to CKD. (2) Chest heaviness: likely musculoskeletal +/- pulmonary edema +/- asthma sternal pain improved/resolved w/ voltaren gel wheezing improved with albuterol cont to diurese (3) CKD (chronic kidney disease), stage IV: Baseline Cr 1.9 to-2.6. Creatinine today 2.6. Continue BMP daily. Appreciate nephrology consultation/recs. (4) Iron deficiency anemia: IV venofer per nephrology management. dose #5 of 5 today (200mg daily). recheck cbc later this week. no overt GI bleeding. fecal occult pending. (5) Paroxysmal atrial fibrillation: NSR on tele. Cont BB. INR 2.3 today. Had been supratherapeutic at admission. Resumed coumadin on 30 - 5mg x 1. Cont 2.5mg daily with repeat INR in am. (6) Stenosis of trachea: Tracheal stenosis/subglottic stenosis- Status post recent procedure at [facility] for such. Follows with Dr Mondragon locally. (7) SGS (subglottic stenosis): See above (8) Diabetes type 2, uncontrolled: Hemoglobin A1c 8.8%. Continue novolog with lantus. Control remains excellent here. (9) Asthma: controlled/no exacerbation at this time (10) Depression: Continue duloxetine 30 mg daily (11) Essential hypertension: Controlled with current medications. (12) Obstructive sleep apnea of adult: CPAP at bedtime. 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: resumed coumadin on 03/11 INR 2.3 today cont coumadin with daily INR cont PT/OT - may need rehab based on initial evals very weak updated pt's sister by phone 03/11/21 Admission and Anticipated Discharge Date Admission Date: March 07, 2021 Subjective no issues overnight watching soap operas on TV during the visit no complaints chest wall tenderness resolved w/ voltaren no cough no dyspnea at rest compliant w/ BIPAP at HS tele overnight wnl eating well Review of Systems Constitutional: no fatigue and no anorexia Cardiovascular: + edema; no chest pain Gastrointestinal: no abdominal pain, no nausea and no vomiting Physical Exam Constitutional: + morbidly obese; no acute distress and no altered mental status ENMT: external ear and nose normal, oropharynx normal Respiratory: no respiratory distress Auscultation: + diminished lung sounds (bases) and + rales (bases); no wheezes (resolved today ) Cardiovascular: Rate/Rhythm: regular rate and regular rhythm Heart Sounds: normal S1 and normal S2 Vessels: + JVD (looks minimal today ), posterior tibial pulses present and dorsalis pedis pulses present Extremities: + edema (2+ b/l -- no change ) Gastrointestinal (Abdomen): normal bowel sounds, soft, nontender, no hepatosplenomegaly Skin: stasis changes b/l legs Psychiatric: A+Ox3, euthymic affect Results & Data Results & Data ([facility]) Vital Signs (Past 12 Hours) Vital Signs Temp Pulse Pulse Resp BP Pulse Ox 03/13/21 18:25 78 16 95 03/13/21 16:18 56 L 03/13/21 15:23 36.3 C L 56 L 18 112/66 94 03/13/21 12:50 55 L 18 95 03/13/21 11:57 98 03/13/21 11:20 37.1 C 59 L 15 106/64 96 03/13/21 08:00 75 03/13/21 07:32 37.2 C 76 146/68 H 98 Laboratory Results Laboratory Results - last 24 hr 03/12/21 03/13/21 03/13/21 20:16 07:12 07:12 PT 21.6 H INR 2.3 H Sodium 141 Potassium 3.5 Chloride 104 Carbon Dioxide 29 Anion Gap 7.0 BUN 70 H Creatinine 2.60 H Est Cr Clr Drug Dosing 20.9 Est GFR ( Amer) 19.8 Est GFR (Non-Af Amer) 17.1 BUN/Creatinine Ratio 26.9 H Glucose 122 H POC Glucose 169 H Calcium 8.2 L AST 37 ALT 42 03/13/21 03/13/21 03/13/21 07:31 11:00 15:56 PT INR Sodium Potassium Chloride Carbon Dioxide Anion Gap BUN Creatinine Est Cr Clr Drug Dosing Est GFR ( Amer) Est GFR (Non-Af Amer) BUN/Creatinine Ratio Glucose POC Glucose 128 H 201 H 113 H Calcium AST ALT PG Care Time/CCT Total # of Minutes Spent Total Time Spent with Patient: Total time spent is greater than 50% in coordination of care (as documented) at patient's floor/unit and/or counseling patient: Coding Level of Care Code 94898 Subseq Hosp Care Lvl 2 Diagnoses Acute on chronic heart failure with preserved ejection fraction (HFpEF) I50.33 Chest heaviness R07.89 CKD (chronic kidney disease), stage IV N18.4 Iron deficiency anemia D50.8 Iron deficiency anemia type: other iron deficiency Paroxysmal atrial fibrillation I48.0 Stenosis of trachea J39.8 SGS (subglottic stenosis) J38.6 Diabetes type 2, uncontrolled E11.65 Glycemic state: with hyperglycemia Asthma J45.40 Asthma complication type: uncomplicated Asthma persistence: persistent Asthma severity: moderate Depression F32.9 Active/Remission status: remission status unspecified Depression Type: major depressive disorder Major depression recurrence: unspecified whether recurrent Essential hypertension I10 Obstructive sleep apnea of adult G47.33 GERD without esophagitis K21.9 Hypothyroidism E03.9 Hypothyroidism type: unspecified Dyslipidemia E78.5 Oropharyngeal dysphagia R13.12 Elevated liver transaminase level R74.01 halfway (current) use of anticoagulants Z79.01 (1) Depression Active/Remission status: remission status unspecified Depression Type: major depressive disorder Major depression recurrence: unspecified whether recurrent Qualified Code(s): F32.9 - Major depressive disorder, single episode, unspecified (2) Hypothyroidism Hypothyroidism type: unspecified Qualified Code(s): E03.9 - Hypothyroidism, unspecified (3) Diabetes type 2, uncontrolled Glycemic state: with hyperglycemia Qualified Code(s): E11.65 - Type 2 diabetes mellitus with hyperglycemia (4) Iron deficiency anemia Iron deficiency anemia type: other iron deficiency Qualified Code(s): D50.8 - Other iron deficiency anemias (5) Asthma Asthma complication type: uncomplicated Asthma persistence: persistent Asthma severity: moderate Qualified Code(s): J45.40 - Moderate persistent asthma, uncomplicated
[2021-03-13] MEDS: clonazePAM 0.5 MG TAB PO SCH (21:35)
[2021-03-13] MEDS: EZETIMIBE/SIMVASTATIN 10/40MG 1 TAB TAB PO SCH (21:37)
[2021-03-13] MEDS: METOCLOPRAMIDE HCL 10 MG TABLET PO SCH (21:40)
[2021-03-14] MEDS: ALBUTEROL HFA 8 GM INHALER INH SCH ×4 (00:40→19:16)
[2021-03-14] MEDS: LEVOTHYROXINE SODIUM 88 MCG TABLET PO SCH (05:58)
[2021-03-14] MEDS: guaiFENesin 600 MG TABCR PO SCH ×2 (07:48→21:19)
[2021-03-14] MEDS: DOCUSATE SODIUM 100 MG CAP PO SCH ×4 (07:48→21:19)
[2021-03-14] MEDS: POLYETHYLENE (MIRALAX) 17 GM PACK PO SCH ×2 (07:48→21:22)
[2021-03-14] MEDS: DULoxetine HCL 30 MG CAP PO SCH (07:48)
[2021-03-14] MEDS: PANTOprazole 40 MG TAB PO SCH (07:48)
[2021-03-14] MEDS: METOPROLOL TARTRATE 25 MG TAB PO SCH ×2 (07:48→21:20)
[2021-03-14] MEDS: allopurinoL 100 MG TAB PO SCH (07:49)
[2021-03-14] MEDS: POTASSIUM CHLORIDE CRTAB 20 MEQ TABCR PO SCH (07:49)
[2021-03-14] MEDS: BUMETANIDE 1 MG TAB PO SCH ×2 (07:49→16:46)
[2021-03-14] MEDS: FEXOFENADINE HCL 180 MG TAB PO SCH (07:49)
[2021-03-14] MEDS: ISOSORBIDE MONO EXTENDED REL 30 MG TABCR PO SCH ×3 (07:49→21:19)
[2021-03-14] MEDS: CALCITRIOL 0.25 MCG CAPSULE PO SCH (07:50)
[2021-03-14] MEDS: DICLOFENAC SOD 1% GEL 100 GM TUBE EXT SCH ×4 (07:50→21:21)
[2021-03-14] MEDS: AZELASTINE SCH ×2 (07:50→21:20)
[2021-03-14] MEDS: FENOFIBRIC ACID PO SCH (07:51)
[2021-03-14] MEDS: INSULIN ASPART 100 UNITS/ML 3 ML PEN SC SCH ×4 (07:57→21:28)
[2021-03-14] MEDS: INSULIN GLARGINE SOLOSTAR 100 UNITS/ML 3 ML PEN SC SCH ×2 (08:00→21:31)
[2021-03-14 08:20] LABS: INR 2.7 (0.9-1.1); Prothrombin Time 25.7 Seconds (9.0-12.0)
[2021-03-14 08:37] LABS: BUN Creatinine Ratio 26.4 (10-20); Calcium 9.2 mg/dl (8.5-10.1); Creatinine Clr Calc Pharmacy 20.9 ml/min; Est GFR (African American) 19.6 ml/min; Est GFR (Non-African American) 16.9 ml/min; Magnesium 2.4 mg/dl (1.8-2.4); Potassium 3.8 mmol/L (3.5-5.1)
--- NOTE | 2021-03-14 08:37 | Pharmacy Report ---
Pharmacy Glycemic Short Note 2 - Date of Service March 14, 2021 - Glycemic Short BSG Results (Last 24 hours): 03/13/21 03/13/21 03/13/21 11:00 15:56 20:20 POC Glucose 201 H 113 H 146 H 03/14/21 07:16 POC Glucose 154 H OUTPATIENT ANTIDIABETIC REGIMEN: * Insulin glargine (Basaglar) 45 units SQ BID * NovoLog 3-6 units SQ with meals * A1c = 6.5% on 03/08/21 ASSESSMENT: 03/14 * BSGs reasonably controlled yesterday sans lunch of 201 mg/dL (otherwise 128, 113, and 146 mg/dL) * Novolog tightened yesterday at lunchtime - will continue * Patient received 38 units of insulin (20 units of lantus and 18 units of Novolog) * *Patient should have received 15 units of Lantus at HS based on BSG, but received 10 units * Fasting BSG of 154 mg/dL * Will increase Lantus today 03/13 * BSGs yesterday of 123, 187, 144, and 169 mg/dL * Received 35 units of insulin (20 units of basal and 15 units of prandial/correctional bolus) * Fasting BSG of 128 mg/dL this morning * Will utilize scale again today as inpatient insulin needs have been reduced compared to outpatient 03/08 * 75yo T2DM female with excellent outpatient control per recent A1c * Pt with LOW BSG today secondary to too much basal insulin on board * Outpatient regimen is heavily weighted towards basal insulin (basal insulin = 90 units; bolus insulin max 18 units) indicating that basal insulin is covering some prandial requirements. * Pt with LOW BSG when outpatient basal insulin continued with NPO status * Will adjust/decrease insulin regimen for NPO and continue to titrate based on BSG trends. PLAN FOR INPATIENT GLYCEMIC CONTROL: * Basal insulin - * Lantus 15 units SC qAM * Lantus 10-15 units SC HS x 1 tonight (see EHR for details) * Bolus insulin - continue * NovoLog per scale ACHS or Q6hrs while NPO * Goal Range: Low 110 mg/dL - High 140 mg/dL * Correction Factor: 25 mg/dL/unit * Nutritional / Prandial insulin per carb ratio of 1 unit per 8 grams CHO consumed PLAN FOR DISCHARGE: * HbA1c of 6.5% suggests excellent outpatient glycemic control * Lantus dose may need to be adjusted based on appetite at time of discharge * Home dose of Lantus 45 units SC BID will likely need to be reduced * At this point, Lantus 10-15 units SC BID is likely adequate * Novolog 3-6 units SC with meals seems appropriate at this time * Will continue to follow and adjust discharge recs as necessary
--- NOTE | 2021-03-14 10:01 | Nephrology Progress Note ---
Date of Service March 14, 2021 Assessment & Plan (1) CKD (chronic kidney disease), stage IV: Adequate urine output. Volume status improving. Electrolytes acceptable. Repeat BMP tomorrow AM. No overt uremic symptoms. Kidney function stable. No emergent indication for dialysis. Medications appropriately dosed for kidney function. Document strict I/O's and daily weight. (2) Essential hypertension: BP acceptable. Volume status improving. (3) Acute on chronic heart failure with preserved ejection fraction (HFpEF): Goal is to maintain net negative fluid balance >1 L/d. Bumex switched to PO yesterday. (4) Chronic anemia: Venofer 200 mg IV - 5 of 5 completed yesterday. (5) Secondary hyperparathyroidism of renal origin: Calcitriol 0.5 daily. Calcium acceptable. Admission and Anticipated Discharge Date Admission Date: March 07, 2021 Subjective No acute events overnight. Out of bed with OT this AM. Beverley reports improvement today. CARR persists but improving. Denies lightheadedness. UOP not fully documented yesterday. Plan of care discussed with Dr. Sanchez. Review of Systems Review of Systems: All systems reviewed & are unremarkable except as noted in HPI & below Physical Exam Constitutional: well developed and + obese; no acute distress Eyes: no scleral abnormality and no corneal abnormality ENMT: Mouth: no oral mucosal abnormality and oral mucous membranes not dry Neck: normal visual inspection and trachea midline Respiratory: normal respiratory effort; no respiratory distress Auscultation: lungs clear to auscultation bilaterally, + diminished lung sounds and + rales (scattered basilar) Cardiovascular: Rate/Rhythm: regular rate Heart Sounds: normal S1 and normal S2 Vessels: + JVD Extremities: + edema Musculoskeletal: Extremities: no cyanosis and no clubbing Skin: normal turgor; no lesions Neurologic: Motor/Sensory: no tremor and no asterixis Psychiatric: Orientation: alert and oriented x 3 Results & Data ([facility]) Vital Signs (Past 12 Hours) Vital Signs Temp Pulse Pulse Pulse Resp BP Pulse Ox 03/14/21 07:23 36.7 C 83 20 151/72 H 90 03/14/21 07:14 68 92 03/14/21 03:55 37.0 C 55 L 20 130/67 100 03/14/21 03:05 54 L 14 95 03/14/21 00:40 53 L 20 97 03/14/21 00:23 36.4 C L 53 L 20 145/77 H 98 03/14/21 00:00 58 L 03/13/21 22:26 18 94 Pulse Ox 03/14/21 07:23 03/14/21 07:14 03/14/21 03:55 03/14/21 03:05 03/14/21 00:40 03/14/21 00:23 03/14/21 00:00 96 03/13/21 22:26 Laboratory Results Laboratory Results - last 24 hr 03/13/21 03/13/21 03/13/21 11:00 15:56 20:20 PT INR Sodium Potassium Chloride Carbon Dioxide Anion Gap BUN Creatinine Est Cr Clr Drug Dosing Est GFR ( Amer) Est GFR (Non-Af Amer) BUN/Creatinine Ratio Glucose POC Glucose 201 H 113 H 146 H Calcium Magnesium 03/14/21 03/14/21 03/14/21 07:16 07:40 07:40 PT 25.7 H INR 2.7 H Sodium 138 Potassium 3.8 Chloride 102 Carbon Dioxide 29 Anion Gap 7.0 BUN 69 H Creatinine 2.63 H Est Cr Clr Drug Dosing 20.9 Est GFR ( Amer) 19.6 Est GFR (Non-Af Amer) 16.9 BUN/Creatinine Ratio 26.4 H Glucose 139 H POC Glucose 154 H Calcium 9.2 Magnesium 2.4 PG Care Time/CCT Total # of Minutes Spent Total Time Spent with Patient: Total time spent is greater than 50% in coordination of care (as documented) at patient's floor/unit and/or counseling patient: Coding Level of Care Code 04052 Subseq Hosp Care Lvl 3 Diagnoses CKD (chronic kidney disease), stage IV N18.4 Essential hypertension I10 Acute on chronic heart failure with preserved ejection fraction (HFpEF) I50.33 Chronic anemia D64.9 Secondary hyperparathyroidism of renal origin N25.81
[2021-03-14] MEDS: WARFARIN SOD 2 MG TAB PO SCH (16:45)
--- NOTE | 2021-03-14 20:59 | Hospitalist Progress Note ---
Date of Service March 14, 2021 Assessment & Plan (1) Nonsustained ventricular tachycardia: 11-beat run this am while exercising/working with PT. She is a poor historian but does seem to have had symptoms during PT this am. Could be aberrancy but less likely. The NSVT, coupled with recurrent episodes of chest heaviness/pain over the last 6-12 months, along with numerous CAD risk factors -- all concerning for ischemia. Recent echo with normal all motion. [id number] - spoke with Dr Pritchard from cardiology. Will obtain lexiscan nuclear stress test in am. NPO after MN tonight. Cont beta sharon. Keep K/mag wnl. (2) Chest heaviness: multiple etiologies possible but CAD is top of differential in light of above. also, chronic pulm edema, asthma, musculoskeletal all can contribute. stress test in am. (3) Acute on chronic heart failure with preserved ejection fraction (HFpEF): Volume status slowly improving with stable BUN & CR. O2 weaned off. Continue Bumex 4 mg PO twice daily. BMP daily. Continue BB. Not FELIX or ARB candidate due to CKD. Daily weights - standing scale only. (4) CKD (chronic kidney disease), stage IV: Baseline Cr 1.9 to-2.6. Creatinine again today 2.6. Continue BMP daily. Appreciate nephrology consultation/recs. (5) Iron deficiency anemia: IV venofer per nephrology management. completed 5-day course of daily venofer. recheck cbc later this week. no overt GI bleeding. fecal occult negative. (6) Paroxysmal atrial fibrillation: NSR on tele. Cont BB. INR 2.7 today. Had been supratherapeutic at admission. Resumed coumadin on 5/30 - 5mg x 1. Then 2.5mg daily thereafter. INR qam. (7) Stenosis of trachea: Tracheal stenosis/subglottic stenosis- Status post recent procedure at [employer] for such. Follows with Dr Mondragon locally. (8) SGS (subglottic stenosis): See above (9) Diabetes type 2, uncontrolled: Hemoglobin A1c 8.8%. Continue novolog with lantus. BSGs controlled. Pharmacy managing - appreciate their input and recs. (10) Asthma: controlled/no exacerbation at this time cont albuterol qid (11) Depression: Continue duloxetine 30 mg daily (12) Essential hypertension: Controlled with current medications. (13) Obstructive sleep apnea of adult: CPAP at bedtime. (14) GERD without esophagitis: Continue pantoprazole and metoclopramide (15) Hypothyroidism: Continue levothyroxine 88 mcg daily TSH 7.2 early January Repeat TSH this admit wnl (16) Dyslipidemia: Continue fenofibric acid and simvastatin/Zetia (17) Oropharyngeal dysphagia: Video swallow showed minimal aspiration this admission no issues swallowing fine on minced/moist diet (18) Elevated liver transaminase level: suspected hepatic congestion from volume overload ast and alt today normalized suggesting hepatic congestion from CHF is improved (19) alf (current) use of anticoagulants: resumed coumadin on 03/11 INR 2.7 today cont PT/OT - may need rehab based on initial evals very weak updated pt's sister by phone this week Admission and Anticipated Discharge Date Admission Date: March 07, 2021 Subjective patient sitting in chair during the visit feeling "ok" during PT this am (between 10 and 11am) she didn't feel that good - had dyspnea, a little lightheaded, and vague chest symptoms during this session she had a 11-beat run of nonsustained V-tach she did not have palpitations the physical therapist documented well how she was feeling during the session no other runs of NSVT or other dysrhythmia otherwise no changes from yesterday's visit eating well she again states she has had recurrent episodes of chest pain/heaviness with activity at her apartment over the last year multiple episodes per week some of the pain radiates to L arm and jaw associated dyspnea Review of Systems Constitutional: no fever, no chills, no fatigue and no anorexia Respiratory: + dyspnea on exertion; no cough Cardiovascular: as per Subjective / HPI and + chest pain Gastrointestinal: no abdominal pain, no nausea and no vomiting Physical Exam Constitutional: + morbidly obese; no acute distress and no altered mental status ENMT: external ear and nose normal, oropharynx normal Respiratory: no respiratory distress Auscultation: + diminished lung sounds (bases) and + rales (bases); no wheezes Cardiovascular: Rate/Rhythm: regular rate and regular rhythm Heart Sounds: normal S1 and normal S2 Vessels: posterior tibial pulses present and dorsalis pedis pulses present; no JVD Extremities: + edema (2+ b/l -- no change ) Chest (Breasts): Additional Comments: no tenderness to palpation over sternum Gastrointestinal (Abdomen): normal bowel sounds, soft, nontender, no hepatosplenomegaly Skin: venous stasis changes b/l shins Psychiatric: A+Ox3, euthymic affect Results & Data Results & Data ([facility]) Vital Signs (Past 12 Hours) Vital Signs Temp Pulse Pulse Pulse Resp BP BP 03/14/21 19:21 36.5 C 62 20 132/70 03/14/21 19:16 62 18 03/14/21 15:48 36.5 C 55 L 18 112/65 03/14/21 15:45 56 L 03/14/21 12:54 70 18 03/14/21 11:33 36.6 C 64 20 120/61 Pulse Ox 03/14/21 19:21 98 03/14/21 19:16 98 03/14/21 15:48 96 03/14/21 15:45 03/14/21 12:54 92 03/14/21 11:33 97 Laboratory Results Laboratory Results - last 24 hr 03/14/21 03/14/21 03/14/21 07:16 07:40 07:40 PT 25.7 H INR 2.7 H Sodium 138 Potassium 3.8 Chloride 102 Carbon Dioxide 29 Anion Gap 7.0 BUN 69 H Creatinine 2.63 H Est Cr Clr Drug Dosing 20.9 Est GFR ( Amer) 19.6 Est GFR (Non-Af Amer) 16.9 BUN/Creatinine Ratio 26.4 H Glucose 139 H POC Glucose 154 H Calcium 9.2 Magnesium 2.4 03/14/21 03/14/21 03/14/21 11:31 16:29 19:58 PT INR Sodium Potassium Chloride Carbon Dioxide Anion Gap BUN Creatinine Est Cr Clr Drug Dosing Est GFR ( Amer) Est GFR (Non-Af Amer) BUN/Creatinine Ratio Glucose POC Glucose 172 H 121 H 157 H Calcium Magnesium tele - 11-beat run of NSVT this am ~1015 PG Care Time/CCT Total # of Minutes Spent Total Time Spent with Patient: Total time spent is greater than 50% in coordination of care (as documented) at patient's floor/unit and/or counseling patient: Coding Level of Care Code 38764 Subseq Hosp Care Lvl 3 Diagnoses Nonsustained ventricular tachycardia I47.2 Chest heaviness R07.89 Acute on chronic heart failure with preserved ejection fraction (HFpEF) I50.33 CKD (chronic kidney disease), stage IV N18.4 Iron deficiency anemia D50.8 Iron deficiency anemia type: other iron deficiency Paroxysmal atrial fibrillation I48.0 Stenosis of trachea J39.8 SGS (subglottic stenosis) J38.6 Diabetes type 2, uncontrolled E11.65 Glycemic state: with hyperglycemia Asthma J45.40 Asthma complication type: uncomplicated Asthma persistence: persistent Asthma severity: moderate Depression F32.9 Active/Remission status: remission status unspecified Depression Type: major depressive disorder Major depression recurrence: unspecified whether recurrent Essential hypertension I10 Obstructive sleep apnea of adult G47.33 GERD without esophagitis K21.9 Hypothyroidism E03.9 Hypothyroidism type: unspecified Dyslipidemia E78.5 Oropharyngeal dysphagia R13.12 Elevated liver transaminase level R74.01 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[employer] (current) use of anticoagulants Z79.01 (1) Depression Active/Remission status: remission status unspecified Depression Type: major depressive disorder Major depression recurrence: unspecified whether recurrent Qualified Code(s): F32.9 - Major depressive disorder, single episode, unspecified (2) Hypothyroidism Hypothyroidism type: unspecified Qualified Code(s): E03.9 - Hypothyroidism, unspecified (3) Diabetes type 2, uncontrolled Glycemic state: with hyperglycemia Qualified Code(s): E11.65 - Type 2 diabetes mellitus with hyperglycemia (4) Iron deficiency anemia Iron deficiency anemia type: other iron deficiency Qualified Code(s): D50.8 - Other iron deficiency anemias (5) Asthma Asthma complication type: uncomplicated Asthma persistence: persistent Asthma severity: moderate Qualified Code(s): J45.40 - Moderate persistent asthma, uncomplicated
[2021-03-14] MEDS: METOCLOPRAMIDE HCL 10 MG TABLET PO SCH (21:19)
[2021-03-14] MEDS: EZETIMIBE/SIMVASTATIN 10/40MG 1 TAB TAB PO SCH (21:20)
[2021-03-14] MEDS: clonazePAM 0.5 MG TAB PO SCH (21:28)
[2021-03-15] MEDS: ALBUTEROL HFA 8 GM INHALER INH SCH ×4 (01:09→19:23)
[2021-03-15] MEDS: LEVOTHYROXINE SODIUM 88 MCG TABLET PO SCH (06:20)
[2021-03-15] MEDS: INSULIN ASPART 100 UNITS/ML 3 ML PEN SC SCH ×4 (07:30→21:58)
[2021-03-15 08:15] LABS: INR 2.4 (0.9-1.1); Prothrombin Time 22.8 Seconds (9.0-12.0)
[2021-03-15] MEDS: CALCITRIOL 0.25 MCG CAPSULE PO SCH (08:27)
[2021-03-15] MEDS: allopurinoL 100 MG TAB PO SCH (08:27)
[2021-03-15] MEDS: BUMETANIDE 1 MG TAB PO SCH ×2 (08:27→16:51)
[2021-03-15] MEDS: DICLOFENAC SOD 1% GEL 100 GM TUBE EXT SCH ×4 (08:28→21:57)
[2021-03-15] MEDS: DOCUSATE SODIUM 100 MG CAP PO SCH ×4 (08:28→21:56)
[2021-03-15] MEDS: ISOSORBIDE MONO EXTENDED REL 30 MG TABCR PO SCH ×3 (08:29→21:56)
[2021-03-15] MEDS: guaiFENesin 600 MG TABCR PO SCH ×2 (08:29→21:56)
[2021-03-15] MEDS: FEXOFENADINE HCL 180 MG TAB PO SCH (08:29)
[2021-03-15] MEDS: DULoxetine HCL 30 MG CAP PO SCH (08:29)
[2021-03-15] MEDS: POTASSIUM CHLORIDE CRTAB 20 MEQ TABCR PO SCH (08:30)
[2021-03-15] MEDS: PANTOprazole 40 MG TAB PO SCH (08:30)
[2021-03-15] MEDS: METOPROLOL TARTRATE 25 MG TAB PO SCH ×2 (08:30→21:56)
[2021-03-15] MEDS: AZELASTINE SCH ×2 (08:33→21:57)
[2021-03-15] MEDS: FENOFIBRIC ACID PO SCH (08:34)
[2021-03-15] MEDS: POLYETHYLENE (MIRALAX) 17 GM PACK PO SCH ×2 (08:35→21:59)
[2021-03-15 08:38] LABS: BUN Creatinine Ratio 28.2 (10-20); Calcium 9.2 mg/dl (8.5-10.1); Creatinine Clr Calc Pharmacy 21.3 ml/min; Est GFR (African American) 19.8 ml/min; Est GFR (Non-African American) 17.1 ml/min; Potassium 3.8 mmol/L (3.5-5.1)
[2021-03-15] MEDS ORDERED: INSULIN GLARGINE SOLOSTAR 100 UNITS/ML 3 ML PEN SC SCH (09:00)
--- NOTE | 2021-03-15 09:31 | Nephrology Progress Note ---
Date of Service March 15, 2021 Assessment & Plan (1) CKD (chronic kidney disease), stage IV: Adequate urine output. Volume status improving. Electrolytes acceptable. Repeat BMP tomorrow AM. No overt uremic symptoms. Kidney function stable. No emergent indication for dialysis. Medications appropriately dosed for kidney function. Document strict I/O's and daily weight. (2) Essential hypertension: BP acceptable. Volume status improving. (3) Acute on chronic heart failure with preserved ejection fraction (HFpEF): Goal is to maintain net negative fluid balance >1 L/d. Bumex switched to PO yesterday. (4) Chronic anemia: Venofer 200 mg IV - 5 of 5 completed. (5) Secondary hyperparathyroidism of renal origin: Calcitriol 0.5 daily. Calcium acceptable. Admission and Anticipated Discharge Date Admission Date: March 07, 2021 Subjective No acute events overnight. Out of bed to chair this AM. Beverley feels reasonably well but continues to experience intermittent chest heaviness. Cardiac Lexiscan pending. Review of Systems Review of Systems: All systems reviewed & are unremarkable except as noted in HPI & below Physical Exam Constitutional: well developed and + obese; no acute distress Eyes: no scleral abnormality and no corneal abnormality ENMT: Mouth: no oral mucosal abnormality and oral mucous membranes not dry Neck: normal visual inspection and trachea midline Respiratory: normal respiratory effort; no respiratory distress Auscultation: lungs clear to auscultation bilaterally Cardiovascular: Rate/Rhythm: regular rate Heart Sounds: normal S1 and normal S2 Extremities: + edema Musculoskeletal: Extremities: no cyanosis and no clubbing Skin: + turgor decreased; no lesions Neurologic: Motor/Sensory: no tremor and no asterixis Psychiatric: Orientation: alert and oriented x 3 Results & Data ([facility]) Vital Signs (Past 12 Hours) Vital Signs Temp Pulse Pulse Pulse Resp BP Pulse Ox 03/15/21 08:00 54 L 03/15/21 07:43 36.7 C 58 L 20 120/67 94 03/15/21 07:06 63 18 91 03/15/21 03:53 36.5 C 61 24 148/74 H 98 03/15/21 02:34 54 L 14 95 03/15/21 01:09 53 L 20 99 03/15/21 00:00 68 03/14/21 23:48 36.5 C 56 L 20 147/67 H 100 03/14/21 23:30 60 14 99 Laboratory Results Laboratory Results - last 24 hr 03/14/21 03/14/21 03/14/21 11:31 16:29 19:58 PT INR Sodium Potassium Chloride Carbon Dioxide Anion Gap BUN Creatinine Est Cr Clr Drug Dosing Est GFR ( Amer) Est GFR (Non-Af Amer) BUN/Creatinine Ratio Glucose POC Glucose 172 H 121 H 157 H Calcium Stool Occult Bld Scrn 03/15/21 03/15/21 03/15/21 01:50 07:14 07:41 PT 22.8 H INR 2.4 H Sodium Potassium Chloride Carbon Dioxide Anion Gap BUN Creatinine Est Cr Clr Drug Dosing Est GFR ( Amer) Est GFR (Non-Af Amer) BUN/Creatinine Ratio Glucose POC Glucose 131 H Calcium Stool Occult Bld Scrn Negative 03/15/21 07:41 PT INR Sodium 140 Potassium 3.8 Chloride 104 Carbon Dioxide 29 Anion Gap 7.0 BUN 73 H Creatinine 2.60 H Est Cr Clr Drug Dosing 21.3 Est GFR ( Amer) 19.8 Est GFR (Non-Af Amer) 17.1 BUN/Creatinine Ratio 28.2 H Glucose 131 H POC Glucose Calcium 9.2 Stool Occult Bld Scrn PG Care Time/CCT Total # of Minutes Spent Total Time Spent with Patient: Total time spent is greater than 50% in coordination of care (as documented) at patient's floor/unit and/or counseling patient: Coding Level of Care Code 24535 Subseq Hosp Care Lvl 3 Diagnoses CKD (chronic kidney disease), stage IV N18.4 Essential hypertension I10 Acute on chronic heart failure with preserved ejection fraction (HFpEF) I50.33 Chronic anemia D64.9 Secondary hyperparathyroidism of renal origin N25.81
--- NOTE | 2021-03-15 09:48 | Pharmacy Report ---
Pharmacy Glycemic Short Note 2 - Date of Service March 15, 2021 - Glycemic Short BSG Results (Last 24 hours): 03/14/21 03/14/21 03/14/21 11:31 16:29 19:58 Glucose POC Glucose 172 H 121 H 157 H 03/15/21 03/15/21 07:14 07:41 Glucose 131 H POC Glucose 131 H OUTPATIENT ANTIDIABETIC REGIMEN: * Insulin glargine (Basaglar) 45 units SQ BID * NovoLog 3-6 units SQ with meals * A1c = 6.5% on 03/08/21 ASSESSMENT: 03/15: * Pt has received 47 units of insulin over the past 24hrs * 25 units of basal with Lantus * 22 units of bolus with NovoLog * BSGs [phone] mg/dl * Pt is currently NPO for lexiscan nuclear stress test- will give 80% of basal insulin dose this AM for short NPO procedure. * Post-prandial BSGs in goal range- no changes needed to CF/CR 03/14 * BSGs reasonably controlled yesterday sans lunch of 201 mg/dL (otherwise 128, 113, and 146 mg/dL) * Novolog tightened yesterday at lunchtime - will continue * Patient received 38 units of insulin (20 units of lantus and 18 units of N ovolog) * *Patient should have received 15 units of Lantus at HS based on BSG, but received 10 units * Fasting BSG of 154 mg/dL * Will increase Lantus today 03/13 * BSGs yesterday of 123, 187, 144, and 169 mg/dL * Received 35 units of insulin (20 units of basal and 15 units of prandial/correctional bolus) * Fasting BSG of 128 mg/dL this morning * Will utilize scale again today as inpatient insulin needs have been reduced compared to outpatient 03/08 * 75yo T2DM female with excellent outpatient control per recent A1c * Pt with LOW BSG today secondary to too much basal insulin on board * Outpatient regimen is heavily weighted towards basal insulin (basal insulin = 90 units; bolus insulin max 18 units) indicating that basal insulin is covering some prandial requirements. * Pt with LOW BSG when outpatient basal insulin continued with NPO status * Will adjust/decrease insulin regimen for NPO and continue to titrate based on BSG trends. PLAN FOR INPATIENT GLYCEMIC CONTROL: * Basal insulin - * Lantus 15 units SC qAM; give 12 units 03/15/21 for NPO * Lantus 10-15 units SC HS x 1 tonight (see EHR for details) * Bolus insulin - continue * NovoLog per scale ACHS or Q6hrs while NPO * Goal Range: Low 110 mg/dL - High 140 mg/dL * Correction Factor: 25 mg/dL/unit * Nutritional / Prandial insulin per carb ratio of 1 unit per 8 grams CHO consumed PLAN FOR DISCHARGE: * HbA1c of 6.5% suggests excellent outpatient glycemic control * Lantus dose may need to be adjusted based on appetite at time of discharge * Home dose of Lantus 45 units SC BID will likely need to be reduced * At this point, Lantus 10-15 units SC BID is likely adequate * Novolog 3-6 units SC with meals seems appropriate at this time * Will continue to follow and adjust discharge recs as necessary
[2021-03-15] MEDS: WARFARIN SOD 2 MG TAB PO SCH (16:51)
--- NOTE | 2021-03-15 18:52 | Hospitalist Progress Note ---
Date of Service March 15, 2021 Assessment & Plan (1) Nonsustained ventricular tachycardia: 11-beat run 03/14/21 (morning) while exercising/working with PT. She is a poor historian but did seem to have had symptoms from this during PT. Could be aberrancy but less likely. The NSVT, coupled with recurrent episodes of chest heaviness/pain over the last 6-12 months, along with numerous CAD risk factors -- all concerning for ischemia. Recent echo with normal wall motion. [id number] - spoke with Dr Pritchard from cardiology. Will obtain lexiscan nuclear stress test. Couldn't get it done today - will get it Friday am. NPO after MN tonight. Cont beta sharon. Keep K/mag wnl. (2) Chest heaviness: multiple etiologies possible but CAD is top of differential in light of above. also, chronic pulm edema, asthma, musculoskeletal all can contribute. stress test in am. (3) Acute on chronic heart failure with preserved ejection fraction (HFpEF): Volume status slowly improving with stable BUN & CR but weights have not changed (standing scale weights have flat-lined). O2 weaned off but desats w/ walking. Continue Bumex 4 mg PO twice daily. Consider a thiazide once daily to enhance diuresis - will d/w Dr Sanchez. BMP daily. Continue BB. Not FELIX or ARB candidate due to CKD. Daily weights - standing scale only. (4) CKD (chronic kidney disease), stage IV: Baseline Cr 1.9 to-2.6. Creatinine again today 2.6. Continue BMP daily. Appreciate nephrology consultation/recs. (5) Iron deficiency anemia: completed 5-day course of daily venofer. recheck cbc later this week. no overt GI bleeding. fecal occult negative. (6) Paroxysmal atrial fibrillation: NSR on tele. Cont BB. INR therapeutic again today. Had been supratherapeutic at admission. Resumed coumadin on 530 - 5mg x 1. Then 2.5mg, then lowered again to 2mg/day. INR qam. (7) Stenosis of trachea: Tracheal stenosis/subglottic stenosis- Status post recent procedure at [facility] for such. Follows with Dr Mondragon locally. (8) SGS (subglottic stenosis): See above (9) Diabetes type 2, uncontrolled: Hemoglobin A1c 8.8%. Continue novolog with lantus. BSGs controlled. Pharmacy managing - appreciate their input and recs. (10) Asthma: controlled/no exacerbation at this time cont albuterol qid recent wheezing I suspect was pulmonary edema related (11) Depression: Continue duloxetine 30 mg daily (12) Essential hypertension: Controlled with current medications. (13) Obstructive sleep apnea of adult: CPAP at bedtime. 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 see "history" section for details on that conversation. I fully agree with Federica that Ms Baer is truly not in a position to be living independently. best scenario - SNF - at least short-term, could be long-term. If she rehabs well enough perhaps she could get to a point that PCH/assisted living would be feasible. extensive update given to Federica phone call was 20 minutes total care time today - 35 minutes Admission and Anticipated Discharge Date Admission Date: March 07, 2021 Subjective no events overnight no further runs of NSVT no chest heaviness overnight or this am dyspnea on exertion and hypoxia remain with walking per documentation was NPO for lexiscan - unfortunately it can't be done today - to have on Friday allowed to eat lunch LE edema the same spoke with pt's sister herbert - she and her other sibling express great concern of her returning to her subsidized apartment she lives alone spends the entire day in the chair can barely walk to kitchen or bathroom difficult time doing ADLs sister confirms intellectual disability in [place] and feels that [place] has limited insight into her medical conditions and living situation family requests SNF placement sister states that LE edema is the worst it has been in some time Review of Systems Constitutional: no fever and no chills Respiratory: no cough and no dyspnea Cardiovascular: + edema; no chest pain and no orthopnea Gastrointestinal: no abdominal pain, no nausea and no vomiting Physical Exam Constitutional: + morbidly obese; no acute distress and no altered mental status ENMT: external ear and nose normal, oropharynx normal Respiratory: no respiratory distress Auscultation: + diminished lung sounds (bases) and + rales (bases); no wheezes Cardiovascular: Rate/Rhythm: regular rate and regular rhythm Heart Sounds: normal S1 and normal S2 Vessels: posterior tibial pulses present and dorsalis pedis pulses present; no JVD Extremities: + edema (2+ b/l -- no change ) Gastrointestinal (Abdomen): normal bowel sounds, soft, nontender, no hepatosplenomegaly Skin: venous stasis changes b/l legs - unchanged Psychiatric: A+Ox3, euthymic affect Results & Data Results & Data ([facility]) Vital Signs (Past 12 Hours) Vital Signs Temp Pulse Pulse Pulse Resp BP Pulse Ox 03/15/21 16:00 60 03/15/21 15:41 36.7 C 58 L 20 124/63 96 03/15/21 12:47 51 L 18 94 03/15/21 10:52 36.6 C 49 L 20 112/74 94 03/15/21 08:00 54 L 03/15/21 07:43 36.7 C 58 L 20 120/67 94 03/15/21 07:06 63 18 91 Laboratory Results Laboratory Results - last 24 hr 03/14/21 03/15/21 03/15/21 19:58 01:50 07:14 PT INR Sodium Potassium Chloride Carbon Dioxide Anion Gap BUN Creatinine Est Cr Clr Drug Dosing Est GFR ( Amer) Est GFR (Non-Af Amer) BUN/Creatinine Ratio Glucose POC Glucose 157 H 131 H Calcium Stool Occult Bld Scrn Negative 03/15/21 03/15/21 03/15/21 07:41 07:41 10:50 PT 22.8 H INR 2.4 H Sodium 140 Potassium 3.8 Chloride 104 Carbon Dioxide 29 Anion Gap 7.0 BUN 73 H Creatinine 2.60 H Est Cr Clr Drug Dosing 21.3 Est GFR ( Amer) 19.8 Est GFR (Non-Af Amer) 17.1 BUN/Creatinine Ratio 28.2 H Glucose 131 H POC Glucose 121 H Calcium 9.2 Stool Occult Bld Scrn 03/15/21 16:20 PT INR Sodium Potassium Chloride Carbon Dioxide Anion Gap BUN Creatinine Est Cr Clr Drug Dosing Est GFR ( Amer) Est GFR (Non-Af Amer) BUN/Creatinine Ratio Glucose POC Glucose 189 H Calcium Stool Occult Bld Scrn PG Care Time/CCT Total # of Minutes Spent Total Time Spent with Patient: Total time spent is greater than 50% in coordination of care (as documented) at patient's floor/unit and/or counseling patient: Coding Level of Care Code 81735 Subseq Hosp Care Lvl 3 Diagnoses Nonsustained ventricular tachycardia I47.2 Chest heaviness R07.89 Acute on chronic heart failure with preserved ejection fraction (HFpEF) I50.33 CKD (chronic kidney disease), stage IV N18.4 Iron deficiency anemia D50.8 Iron deficiency anemia type: other iron deficiency Paroxysmal atrial fibrillation I48.0 Stenosis of trachea J39.8 SGS (subglottic stenosis) J38.6 Diabetes type 2, uncontrolled E11.65 Glycemic state: with hyperglycemia Asthma J45.40 Asthma complication type: uncomplicated Asthma persistence: persistent Asthma severity: moderate Depression F32.9 Active/Remission status: remission status unspecified Depression Type: major depressive disorder Major depression recurrence: unspecified whether recurrent Essential hypertension I10 Obstructive sleep apnea of adult G47.33 GERD without esophagitis K21.9 Hypothyroidism E03.9 Hypothyroidism type: unspecified Dyslipidemia E78.5 Oropharyngeal dysphagia R13.12 Elevated liver transaminase level R74.01 jail (current) use of anticoagulants Z79.01 Discharge planning issues Z02.9 (1) Depression Active/Remission status: remission status unspecified Depression Type: major depressive disorder Major depression recurrence: unspecified whether recurrent Qualified Code(s): F32.9 - Major depressive disorder, single episode, unspecified (2) Hypothyroidism Hypothyroidism type: unspecified Qualified Code(s): E03.9 - Hypothyroidism, unspecified (3) Diabetes type 2, uncontrolled Glycemic state: with hyperglycemia Qualified Code(s): E11.65 - Type 2 diabetes mellitus with hyperglycemia (4) Iron deficiency anemia Iron deficiency anemia type: other iron deficiency Qualified Code(s): D50.8 - Other iron deficiency anemias (5) Asthma Asthma complication type: uncomplicated Asthma persistence: persistent A sthma severity: moderate Qualified Code(s): J45.40 - Moderate persistent asthma, uncomplicated
[2021-03-15] MEDS: clonazePAM 0.5 MG TAB PO SCH (21:56)
[2021-03-15] MEDS: EZETIMIBE/SIMVASTATIN 10/40MG 1 TAB TAB PO SCH (21:56)
[2021-03-15] MEDS: METOCLOPRAMIDE HCL 10 MG TABLET PO SCH (21:56)
[2021-03-15] MEDS: INSULIN GLARGINE SOLOSTAR 100 UNITS/ML 3 ML PEN SC SCH (21:58)
[2021-03-16] MEDS: ALBUTEROL HFA 8 GM INHALER INH SCH ×4 (00:01→20:26)
[2021-03-16 06:15] LABS: INR 2.4 (0.9-1.1); Prothrombin Time 22.4 Seconds (9.0-12.0)
[2021-03-16 06:44] LABS: Calcium 8.6 mg/dl (8.5-10.1); Creatinine Clr Calc Pharmacy 21.9 ml/min; Est GFR (African American) 20.5 ml/min; Est GFR (Non-African American) 17.7 ml/min; Potassium 3.8 mmol/L (3.5-5.1)
[2021-03-16] MEDS: DICLOFENAC SOD 1% GEL 100 GM TUBE EXT SCH ×4 (07:49→22:32)
[2021-03-16] MEDS: PANTOprazole 40 MG TAB PO SCH (07:49)
[2021-03-16] MEDS: POTASSIUM CHLORIDE CRTAB 20 MEQ TABCR PO SCH (07:49)
[2021-03-16] MEDS: allopurinoL 100 MG TAB PO SCH (07:49)
[2021-03-16] MEDS: BUMETANIDE 1 MG TAB PO SCH ×2 (07:50→16:01)
[2021-03-16] MEDS: DULoxetine HCL 30 MG CAP PO SCH (07:50)
[2021-03-16] MEDS: guaiFENesin 600 MG TABCR PO SCH ×2 (07:50→22:31)
[2021-03-16] MEDS: DOCUSATE SODIUM 100 MG CAP PO SCH ×4 (07:50→22:31)
[2021-03-16] MEDS: METOPROLOL TARTRATE 25 MG TAB PO SCH ×2 (07:51→22:30)
[2021-03-16] MEDS: FEXOFENADINE HCL 180 MG TAB PO SCH (07:51)
[2021-03-16] MEDS: CALCITRIOL 0.25 MCG CAPSULE PO SCH (07:51)
[2021-03-16] MEDS: ISOSORBIDE MONO EXTENDED REL 30 MG TABCR PO SCH ×3 (07:51→22:31)
[2021-03-16] MEDS: LEVOTHYROXINE SODIUM 88 MCG TABLET PO SCH (07:52)
[2021-03-16] MEDS: AZELASTINE SCH ×2 (07:53→22:32)
[2021-03-16] MEDS: POLYETHYLENE (MIRALAX) 17 GM PACK PO SCH ×2 (07:53→22:32)
[2021-03-16] MEDS: FENOFIBRIC ACID PO SCH (07:53)
[2021-03-16] MEDS ORDERED: metOLazone 2.5 MG TABLET PO ONE (08:00)
[2021-03-16] MEDS: INSULIN ASPART 100 UNITS/ML 3 ML PEN SC SCH ×4 (08:31→23:26)
[2021-03-16] MEDS ORDERED: INSULIN GLARGINE SOLOSTAR 100 UNITS/ML 3 ML PEN SC SCH ×2 (09:00)
--- NOTE | 2021-03-16 09:37 | Pharmacy Report ---
Pharmacy Glycemic Short Note 2 - Date of Service March 16, 2021 - Glycemic Short BSG Results (Last 24 hours): 03/15/21 03/15/21 03/15/21 10:50 16:20 20:58 Glucose POC Glucose 121 H 189 H 185 H 03/16/21 03/16/21 05:48 07:09 Glucose 120 H POC Glucose 135 H OUTPATIENT ANTIDIABETIC REGIMEN: * Insulin glargine (Basaglar) 45 units SQ BID * NovoLog 3-6 units SQ with meals * A1c = 6.5% on 03/08/21 ASSESSMENT: 03/16 * Pt has received 36 units of insulin over the past 24hrs * 27 units of basal with Lantus * 9 units of bolus with NovoLog (low bolus insulin dosing secondary to NPO yesterday AM) * BSGs [phone] mg/dl * Was not able to get Lexiscan stress test yesterday - scheduled for today. Pt NPO this AM. Will reduce Lantus again to 12 units for NPO * BSGs slightly elevated at dinner and HS despite NPO at breakfast and lunch. Most likely d/t reduced Lantus for NPO. Pt had only received 10 units of Lantus the night prior. Last night pt received 15 units of Lantus so appropriate to decrease dose for NPO today. Pt probably could have tolerated full AM Lantus dose of 15 units yesterday morning but BSGs still reasonable. 03/15: * Pt has received 47 units of insulin over the past 24hrs * 25 units of basal with Lantus * 22 units of bolus with NovoLog * BSGs [phone] mg/dl * Pt is currently NPO for lexiscan nuclear stress test- will give 80% of basal insulin dose this AM for short NPO procedure. * Post-prandial BSGs in goal range- no changes needed to CF/CR 03/14 * BSGs reasonably controlled yesterday sans lunch of 201 mg/dL (otherwise 128, 113, and 146 mg/dL) * Novolog tightened yesterday at lunchtime - will continue * Patient received 38 units of insulin (20 units of lantus and 18 units of Novolog) * *Patient should have received 15 units of Lantus at HS based on BSG, but received 10 units * Fasting BSG of 154 mg/dL * Will increase Lantus today 03/13 * BSGs yesterday of 123, 187, 144, and 169 mg/dL * Received 35 units of insulin (20 units of basal and 15 units of p randial/correctional bolus) * Fasting BSG of 128 mg/dL this morning * Will utilize scale again today as inpatient insulin needs have been reduced compared to outpatient 03/08 * 75yo T2DM female with excellent outpatient control per recent A1c * Pt with LOW BSG today secondary to too much basal insulin on board * Outpatient regimen is heavily weighted towards basal insulin (basal insulin = 90 units; bolus insulin max 18 units) indicating that basal insulin is covering some prandial requirements. * Pt with LOW BSG when outpatient basal insulin continued with NPO status * Will adjust/decrease insulin regimen for NPO and continue to titrate based on BSG trends. PLAN FOR INPATIENT GLYCEMIC CONTROL: * Basal insulin - * Lantus 15 units SC qAM; give 12 units 03/16/21 for NPO * Lantus 10-15 units SC HS x 1 tonight (see EHR for details) * Bolus insulin - continue * NovoLog per scale ACHS or Q6hrs while NPO * Goal Range: Low 110 mg/dL - High 140 mg/dL * Correction Factor: 25 mg/dL/unit * Nutritional / Prandial insulin per carb ratio of 1 unit per 8 grams CHO consumed PLAN FOR DISCHARGE: * HbA1c of 6.5% suggests excellent outpatient glycemic control * Lantus dose may need to be adjusted based on appetite at time of discharge * Home dose of Lantus 45 units SC BID will likely need to be reduced * At this point, Lantus 10-15 units SC BID is likely adequate * Novolog 3-6 units SC with meals seems appropriate at this time * Will continue to follow and adjust discharge recs as necessary
--- NOTE | 2021-03-16 12:50 | Nephrology Progress Note ---
Date of Service March 16, 2021 Assessment & Plan (1) CKD (chronic kidney disease), stage IV: Adequate urine output. Volume status improving but slowly. Certainly may consider switching back to IV Bumex as needed. Remains on 4 mg Twice daily. Dose of Zaroxolyn provided in addition this AM. Electrolytes acceptable. Repeat BMP tomorrow AM. No overt uremic symptoms. Kidney function stable. No emergent indication for dialysis. Medications appropriately dosed for kidney function. Document strict I/O's and daily weight. (2) Essential hypertension: BP acceptable. Volume status improving. (3) Acute on chronic heart failure with preserved ejection fraction (HFpEF): Goal is to maintain net negative fluid balance >1 L/d. Lexiscan today. (4) Chronic anemia: Venofer 200 mg IV - 5 of 5 completed. (5) Secondary hyperparathyroidism of renal origin: Calcitriol 0.5 daily. Calcium acceptable. Admission and Anticipated Discharge Date Admission Date: March 07, 2021 Subjective No acute events overnight. I discussed the patient's status and overall plan of care with Dr. Sanchez this AM. [place] unfortunately does not feel like she has significantly improved. Looking at SNF placement. Lexiscan today. Review of Systems Review of Systems: All systems reviewed & are unremarkable except as noted in HPI & below Physical Exam Constitutional: well developed and + obese; no acute distress Eyes: no scleral abnormality and no corneal abnormality ENMT: Mouth: no oral mucosal abnormality and oral mucous membranes not dry Neck: normal visual inspection and trachea midline Respiratory: normal respiratory effort; no respiratory distress Auscultation: lungs clear to auscultation bilaterally Cardiovascular: Rate/Rhythm: regular rate Heart Sounds: normal S1 and normal S2 Extremities: + edema Musculoskeletal: Extremities: no cyanosis and no clubbing Skin: + turgor decreased; no lesions Neurologic: Motor/Sensory: no tremor and no asterixis Psychiatric: Orientation: alert and oriented x 3 Results & Data ([facility]) Vital Signs (Past 12 Hours) Vital Signs Temp Pulse Pulse Pulse Resp BP Pulse Ox 03/16/21 11:16 36.4 C L 54 L 11 L 111/67 93 03/16/21 08:00 48 L 03/16/21 07:50 36.6 C 61 16 125/63 95 03/16/21 07:26 67 18 94 03/16/21 04:00 36.5 C 50 L 18 116/63 100 06/04/21 03:30 50 L 13 97 Laboratory Results Laboratory Results - last 24 hr 03/15/21 03/15/21 03/16/21 16:20 20:58 05:48 PT 22.4 H INR 2.4 H Sodium Potassium Chloride Carbon Dioxide Anion Gap BUN Creatinine Est Cr Clr Drug Dosing Est GFR ( Amer) Est GFR (Non-Af Amer) BUN/Creatinine Ratio Glucose POC Glucose 189 H 185 H Calcium 03/16/21 03/16/21 05:48 07:09 PT INR Sodium 140 Potassium 3.8 Chloride 106 Carbon Dioxide 28 Anion Gap 6.0 BUN 66 H Creatinine 2.53 H Est Cr Clr Drug Dosing 21.9 Est GFR ( Amer) 20.5 Est GFR (Non-Af Amer) 17.7 BUN/Creatinine Ratio 26.0 H Glucose 120 H POC Glucose 135 H Calcium 8.6 PG Care Time/CCT Total # of Minutes Spent Total Time Spent with Patient: Total time spent is greater than 50% in coordination of care (as documented) at patient's floor/unit and/or counseling patient: Coding Level of Care Code 21419 Subseq Hosp Care Lvl 3 Diagnoses CKD (chronic kidney disease), stage IV N18.4 Essential hypertension I10 Acute on chronic heart failure with preserved ejection fraction (HFpEF) I50.33 Chronic anemia D64.9 Secondary hyperparathyroidism of renal origin N25.81
[2021-03-16] MEDS ORDERED: REGADENOSON 0.4 MG/5 ML SYR IV ONE (13:01)
[2021-03-16] MEDS: WARFARIN SOD 2 MG TAB PO SCH (16:00)
--- NOTE | 2021-03-16 20:25 | Hospitalist Progress Note ---
Date of Service March 16, 2021 Assessment & Plan (1) Nonsustained ventricular tachycardia: 11-beat run 03/14/21 (morning) while exercising/working with PT. She is a poor historian but did seem to have had symptoms from this during the PT. Could be aberrancy but less likely. The NSVT, coupled with recurrent episodes of chest heaviness/pain over the last 6-12 months, along with numerous CAD risk factors -- all concerning for ischemia. Recent echo with normal wall motion. lexiscan nuclear stress test completed today - results pending. Cont beta sharon. K/mag wnl. (2) Chest heaviness: multiple etiologies possible but CAD is top of differential in light of above. episodes occur usually with exertion. also, chronic pulm edema, asthma, musculoskeletal all can contribute. concerning for ischemia -- lexiscan nuclear stres test completed today - results pending. (3) Acute on chronic heart failure with preserved ejection fraction (HFpEF): Volume status slowly improving with stable BUN & CR but weights have not changed (standing scale weights have flat-lined). O2 weaned off but desats w/ walking. Continue Bumex 4 mg PO twice daily. Try zaroxylyn 2.5mg po x 1 prior to AM bumex. If this helps diuresis will continue daily. BMP daily. Continue BB. Not FELIX or ARB candidate due to CKD. Daily weights - standing scale only. (4) CKD (chronic kidney disease), stage IV: Baseline Cr 1.9 to-2.6. Creatinine 2.5 today. Continue BMP daily. Appreciate nephrology consultation/recs. (5) Iron deficiency anemia: completed 5-day course of daily venofer. recheck cbc in am. no overt GI bleeding. fecal occult negative. (6) Paroxysmal atrial fibrillation: NSR on tele. Cont BB. INR therapeutic again today. Had been supratherapeutic at admission. Resumed coumadin on 5/30 - 5mg x 1. Then 2.5mg, then lowered again to 2mg/day. Cont 2mg/day - INR therapeutic with this. INR qam. (7) Stenosis of trachea: Tracheal stenosis/subglottic stenosis- Status post recent procedure at [facility] for such. Follows with Dr Mondragon locally. (8) SGS (subglottic stenosis): See above (9) Diabetes type 2, uncontrolled: Hemoglobin A1c 8.8%. Continue novolog with lantus. BSGs controlled. Pharmacy managing - appreciate their input and recs. (10) Asthma: controlled/no exacerbation at this time cont albuterol qid recent wheezing I suspect was pulmonary edema related (11) Depression: Continue duloxetine 30 mg daily (12) Essential hypertension: Controlled with current medications. (13) Obstructive sleep apnea of adult: CPAP at bedtime. 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 see "history" section from that progress note for details on that conversation. I fully agree with Federica that Ms Baer is truly not in a position to be living independently given her numerous medical issues, difficulty carrying out ADLs, intellectual disability, etc. best scenario - SNF - at least short-term, could be long-term. If she rehabs well enough perhaps she could get to a point that PCH/assisted living would be feasible. (22) DVT prophylaxis: coumadin Admission and Anticipated Discharge Date Admission Date: March 07, 2021 Subjective had stress test today tele overnight wnl - no NSVT denied any new complaints no chest pain/heaviness just MILD CARR (baseline) had no symptoms during stress test she has noted good UOP with the zaroxylyn this am Review of Systems Respiratory: no cough and no wheezing Cardiovascular: + dyspnea on exertion and + edema; no dyspnea at rest and no orthopnea Gastrointestinal: no abdominal pain, no nausea and no vomiting Physical Exam Constitutional: + morbidly obese; no acute distress and no altered mental status ENMT: external ear and nose normal, oropharynx normal Respiratory: no respiratory distress Auscultation: + diminished lung sounds (bases) and + rales (bases); no wheezes Cardiovascular: Rate/Rhythm: regular rate and regular rhythm Heart Sounds: normal S1 and normal S2 Vessels: posterior tibial pulses present and dorsalis pedis pulses present; no JVD Extremities: + edema (2+ b/l -- no change ) Gastrointestinal (Abdomen): normal bowel sounds, soft, nontender, no hepatosplenomegaly Skin: no change in venous stasis changes b/l shins Psychiatric: A+Ox3, euthymic affect Results & Data Results & Data ([facility]) Vital Signs (Past 12 Hours) Vital Signs Temp Pulse Pulse Resp BP Pulse Ox 03/16/21 16:11 57 L 03/16/21 15:05 36.4 C L 60 16 129/71 95 03/16/21 11:16 36.4 C L 54 L 11 L 111/67 93 Laboratory Results Laboratory Results - last 24 hr 03/15/21 03/16/21 03/16/21 20:58 05:48 05:48 PT 22.4 H INR 2.4 H Sodium 140 Potassium 3.8 Chloride 106 Carbon Dioxide 28 Anion Gap 6.0 BUN 66 H Creatinine 2.53 H Est Cr Clr Drug Dosing 21.9 Est GFR ( Amer) 20.5 Est GFR (Non-Af Amer) 17.7 BUN/Creatinine Ratio 26.0 H Glucose 120 H POC Glucose 185 H Calcium 8.6 03/16/21 03/16/21 07:09 15:59 PT INR Sodium Potassium Chloride Carbon Dioxide Anion Gap BUN Creatinine Est Cr Clr Drug Dosing Est GFR ( Amer) Est GFR (Non-Af Amer) BUN/Creatinine Ratio Glucose POC Glucose 135 H 94 Calcium PG Care Time/CCT Total # of Minutes Spent Total Time Spent with Patient: Total time spent is greater than 50% in coordination of care (as documented) at patient's floor/unit and/or counseling patient: Coding Level of Care Code 71131 Subseq Hosp Care Lvl 2 Diagnoses Nonsustained ventricular tachycardia I47.2 Chest heaviness R07.89 Acute on chronic heart failure with preserved ejection fraction (HFpEF) I50.33 CKD (chronic kidney disease), stage IV N18.4 Iron deficiency anemia D50.8 Iron deficiency anemia type: other iron deficiency Paroxysmal atrial fibrillation I48.0 Stenosis of trachea J39.8 SGS (subglottic stenosis) J38.6 Diabetes type 2, uncontrolled E11.65 Glycemic state: with hyperglycemia Asthma J45.40 Asthma complication type: uncomplicated Asthma persistence: persistent Asthma severity: moderate Depression F32.9 Active/Remission status: remission status unspecified Depression Type: major depressive disorder Major depression recurrence: unspecified whether recurrent Essential hypertension I10 Obstructive sleep apnea of adult G47.33 GERD without esophagitis K21.9 Hypothyroidism E03.9 Hypothyroidism type: unspecified Dyslipidemia E78.5 Oropharyngeal dysphagia R13.12 Elevated liver transaminase level R74.01 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 Intellectual disability F79 Discharge planning issues Z02.9 DVT prophylaxis Z29.9 (1) Depression Active/Remission status: remission status unspecified Depression Type: major depressive disorder Major depression recurrence: unspecified whether recurrent Qualified Code(s): F32.9 - Major depressive disorder, single episode, unspecified (2) Hypothyroidism Hypothyroidism type: unspecified Qualified Code(s): E03.9 - Hypothyroidism, unspecified (3) Diabetes type 2, uncontrolled Glycemic state: with hyperglycemia Qualified Code(s): E11.65 - Type 2 diabetes mellitus with hyperglycemia (4) Iron deficiency anemia Iron deficiency anemia type: other iron deficiency Qualified Code(s): D50.8 - Other iron deficiency anemias (5) Asthma Asthma complication type: uncomplicated Asthma persistence: persistent Asthma severity: moderate Qualified Code(s): J45.40 - Moderate persistent asthma, uncomplicated
[2021-03-16] MEDS: EZETIMIBE/SIMVASTATIN 10/40MG 1 TAB TAB PO SCH (22:31)
[2021-03-16] MEDS: METOCLOPRAMIDE HCL 10 MG TABLET PO SCH (22:31)
[2021-03-16] MEDS: ACETAMINOPHEN 325 MG TAB PO PRN (22:31)
[2021-03-16] MEDS: clonazePAM 0.5 MG TAB PO SCH (22:31)
[2021-03-16] MEDS: INSULIN GLARGINE SOLOSTAR 100 UNITS/ML 3 ML PEN SC SCH (23:28)
[2021-03-17] MEDS: ALBUTEROL HFA 8 GM INHALER INH SCH ×2 (01:30→07:26)
[2021-03-17] MEDS: LEVOTHYROXINE SODIUM 88 MCG TABLET PO SCH (06:42)
[2021-03-17 06:47] LABS: Hematocrit (blood only) 27.3 % (37-47); Hemoglobin 8.3 g/dL (12.0-16.0); Mean Corpuscular Hemoglobin 26.5 pg (25-34); Mean Corpuscular Hgb Conc 30.4 g/dL (32-36); Mean Corpuscular Volume 87.2 fL (80-100); Mean Platelet Volume 10.5 fL (7.4-10.4); Platelet Count 188 K/uL (130-400); RDW Standard Deviation 51.9 fL (36.4-46.3); Red Blood Count 3.13 M/uL (4.2-5.4); White Blood Count 6.96 K/uL (4.8-10.8)
[2021-03-17 06:53] LABS: INR 2.8 (0.9-1.1); Prothrombin Time 25.8 Seconds (9.0-12.0)
[2021-03-17 07:13] LABS: BUN Creatinine Ratio 28.1 (10-20); Calcium 9.1 mg/dl (8.5-10.1); Est GFR (African American) 22.2 ml/min; Est GFR (Non-African American) 19.1 ml/min
--- NOTE | 2021-03-17 08:05 | Myocardial Perfusion Study ---
Date of Service March 16, 2021 Myocardial Perfusion Study Blk Myocardial Perfusion Study Report [place] Act 112: Negative ONE DAY NUCLEAR MEDICINE LEXISCAN TECHNETIUM 99M MYOCARDIAL PERFUSION SCAN Indication: Recurrent chest pain, abnormal ECG Baseline ECG: Normal sinus rhythm with LVH with QRS widening and repolarization abnormalities.. Stress ECG: No Lexiscan induced ST changes. Hemodynamics: HR gerardo from 54 bpm to 61 bpm representing 43% maximum predicted h eart rate. BP 159/64 mmHg pretest, 153/65 mmHg during test. Technique: For the stress portion of the study 33.7 mCi of Technetium 99m Cardiolite IV was injected at 1:20 PM on 03/16/2021. 30 minutes following the injection, imaging of the heart was performed in multiple projections. For the rest portion of the study, 11.0 mCi of Technetium 99m Cardiolite was injected IV at 11:30 AM. One hour following the injection, imaging of the hear was performed in the same projections. Findings: Rotating raw images were reviewed in detail. Mild anterior breast attenuation noted. No motion artifact. No significant extracardiac pathologic uptake. Short axis, vertical long axis and horizontal long axis images were reviewed in detail. No visual transient ischemic dilatation. No fixed or reversible perfusion defects seen at rest or during stress. LV is non-dilated. ESV 64 mL. EDV 84 mL. Calculated EF 57%. No wall motion abnormalities. . SUMMARY: 1. Lexiscan myocardial perfusion study negative for myocardial infarction or myocardial ischemia. 2. Non-dilated left ventricle with normal systolic function and no wall motion abnormalities. EF 57%. 3. Non-diagnostic stress ECG due to sub-maximal HR achieved with pharmacologic stress. No ischemic changes or ectopy seen. [facility] Myocardial perfusion code Indication for Procedure (1) Abnormal ECG: (2) Chest heaviness: Procedure Code Procedure 1: Myocardial Perfusion Codes: 54779 Cardiovascular Stress Test, multiple Procedure 2: Myocardial Perfusion Codes: 63772 Cardiovascular Stress Test, supervision only Procedure 3: Myocardial Perfusion Codes: 19659 Cardiovascular Stress Test, interpretation and report
[2021-03-17] MEDS ORDERED: ALBUTEROL HFA 8 GM INHALER INH PRN (08:30)
[2021-03-17] MEDS ORDERED: metOLazone 2.5 MG TABLET PO ONE (08:37)
[2021-03-17] MEDS: INSULIN ASPART 100 UNITS/ML 3 ML PEN SC SCH ×4 (09:06→22:23)
[2021-03-17] MEDS: FENOFIBRIC ACID PO SCH (09:08)
[2021-03-17] MEDS: FEXOFENADINE HCL 180 MG TAB PO SCH (09:09)
[2021-03-17] MEDS: POTASSIUM CHLORIDE CRTAB 20 MEQ TABCR PO SCH (09:09)
[2021-03-17] MEDS: DOCUSATE SODIUM 100 MG CAP PO SCH ×4 (09:09→20:38)
[2021-03-17] MEDS: guaiFENesin 600 MG TABCR PO SCH ×2 (09:09→20:38)
[2021-03-17] MEDS: ISOSORBIDE MONO EXTENDED REL 30 MG TABCR PO SCH ×3 (09:10→20:38)
[2021-03-17] MEDS: POLYETHYLENE (MIRALAX) 17 GM PACK PO SCH ×2 (09:10→20:39)
[2021-03-17] MEDS: METOPROLOL TARTRATE 25 MG TAB PO SCH ×2 (09:10→20:39)
[2021-03-17] MEDS: DULoxetine HCL 30 MG CAP PO SCH (09:10)
[2021-03-17] MEDS: PANTOprazole 40 MG TAB PO SCH (09:10)
[2021-03-17] MEDS: CALCITRIOL 0.25 MCG CAPSULE PO SCH (09:11)
[2021-03-17] MEDS: allopurinoL 100 MG TAB PO SCH (09:11)
[2021-03-17] MEDS: BUMETANIDE 1 MG TAB PO SCH ×2 (09:11→17:17)
[2021-03-17] MEDS: INSULIN GLARGINE SOLOSTAR 100 UNITS/ML 3 ML PEN SC SCH ×2 (09:11→22:23)
[2021-03-17] MEDS: DICLOFENAC SOD 1% GEL 100 GM TUBE EXT SCH ×4 (09:12→20:39)
[2021-03-17] MEDS: AZELASTINE SCH ×2 (09:24→20:39)
--- NOTE | 2021-03-17 11:05 | Nephrology Progress Note ---
Date of Service March 17, 2021 Assessment & Plan (1) CKD (chronic kidney disease), stage IV: * Stable kidney function. Baseline Cr 2.4 * Net 1 L UO overnight * Continue Bumex 3 mg po BID * Recheck UO, PRP in am (2) Essential hypertension: * BP acceptable. Volume status improving * On Imdur, Metoprolol (3) Acute on chronic heart failure with preserved ejection fraction (HFpEF): * Goal is to maintain net negative fluid balance >1 L/d. * Awaiting result of Lexiscan completed yesterday (4) Chronic anemia: * Completed 2g infusion of IV Venofer * Will provide one dose SQ epogen today (5) Secondary hyperparathyroidism of renal origin: * On calcitriol and ergocalciferol * Monitor serum Ca Admission and Anticipated Discharge Date Admission Date: March 07, 2021 Subjective Mrs. Baer was seen & examined in her hospital room this morning. She was sitting up and breathing comfortably on RA during my evaluation. Mrs. Baer reports that he breathing has improved but she still has significant LE swel ling. Review of Systems Constitutional: no fever Eyes: no problem reported Ear, Nose, Mouth, Throat: no problem reported Respiratory: no dyspnea Cardiovascular: + edema; no chest pain and no palpitations Gastrointestinal: no abdominal pain, no nausea and no diarrhea/loose stools Genitourinary: no dysuria and no hematuria Integumentary: no rash Neurologic: no confusion Physical Exam Constitutional: + overweight; not in distress Eyes: PERRL, conjunctivae normal, anicteric sclerae ENMT: external ear and nose normal, oropharynx normal Neck: trachea midline, no thyromegaly Respiratory: normal respiratory effort, lungs clear to auscultation Cardiovascular: RRR, no murmur, no edema Extremities: + edema (tense B LE swelling) Gastrointestinal (Abdomen): normal bowel sounds, soft, nontender, no hepatosplenomegaly Musculoskeletal: Extremities: no cyanosis Skin: no rashes, warm and dry Neurologic: awake; not confused Results & Data ([facility]) Vital Signs (Past 12 Hours) Vital Signs Temp Pulse Pulse Pulse Resp BP Pulse Ox 03/17/21 07:31 36.7 C 62 20 131/62 95 03/17/21 07:27 62 18 93 03/17/21 03:59 36.9 C 52 L 19 109/65 98 03/17/21 03:46 60 16 96 03/17/21 01:33 56 L 18 96 03/17/21 00:22 36.8 C 56 L 18 119/66 98 03/16/21 23:00 80 Laboratory Tests 03/17/21 03/17/21 06:16 06:16 WBC 6.96 Hgb 8.3 L Hct 27.3 L Plt Count 188 Sodium 141 Potassium 4.0 Chloride 106 Carbon Dioxide 28 BUN 67 H Creatinine 2.37 H Glucose 125 H PG Care Time/CCT Total # of Minutes Spent Total Time Spent with Patient: Total time spent is greater than 50% in coordination of care (as documented) at patient's floor/unit and/or counseling patient: Coding Level of Care Code 56460 Subseq Hosp Care Lvl 3 Diagnoses CKD (chronic kidney disease), stage IV N18.4 Essential hypertension I10 Acute on chronic heart failure with preserved ejection fraction (HFpEF) I50.33 Chronic anemia D64.9 Secondary hyperparathyroidism of renal origin N25.81
[2021-03-17] MEDS ORDERED: EPOETIN ALFA 10,000 UNITS/ML VIAL SQ ONE (11:06)
[2021-03-17] MEDS: CARBOHYDRATES FOR HYPOGLYCEMIA PO PRN (16:16)
[2021-03-17] MEDS: WARFARIN SOD 2 MG TAB PO SCH (16:55)
--- NOTE | 2021-03-17 20:24 | Hospitalist Progress Note ---
Date of Service March 17, 2021 Assessment & Plan (1) Acute on chronic heart failure with preserved ejection fraction (HFpEF): Nice drop in weight overnight with addition of zaroxylyn 2.5mg qam prior to AM bumex. Creatinine tolerated such - in fact, Cr actually improved slightly to 2.3 today. Will continue the AM zaroxylyn 2.5mg daily before AM bumex. Continue Bumex 4 mg PO twice daily. BMP daily. Continue BB. Not FELIX or ARB candidate due to CKD. Daily weights - standing scale only. (2) Nonsustained ventricular tachycardia: 11-beat run 03/14/21 (morning) while exercising/working with PT. She is a poor historian but did seem to have had symptoms from this during the PT. Could be aberrancy but less likely. The NSVT, coupled with recurrent episodes of exertional chest heaviness/pain over the last 6-12 months, along with numerous CAD risk factors -- were all concerning for ischemia. Lexiscan nuclear stress test NEGATIVE for ischemia. Cont beta sharon. K/mag wnl. (3) Chest heaviness: multiple etiologies possible but CAD was top concern. episodes occur usually with exertion. also, chronic pulm edema, asthma, musculoskeletal all can contribute. Lexiscan nuclear stress test yesterday NEGATIVE. When she achieves euvolemia and if chest pain/heaviness persists - cath?? But she has poor renal function and she is NOT a good candidate for such. Simply monitor for now. (4) CKD (chronic kidney disease), stage IV: Baseline Cr 1.9 to-2.6. Creatinine 2.3 today. Continue BMP daily. Appreciate nephrology consultation/recs. (5) Iron deficiency anemia: completed 5-day course of daily venofer. CBC today stable. no overt GI bleeding. fecal occult negative. (6) Paroxysmal atrial fibrillation: NSR on tele. Cont BB. INR therapeutic again today with use of coumadin 2mg/day. Had been supratherapeutic at admission on 2.5mg/day of coumadin. INR qam. (7) Stenosis of trachea: Tracheal stenosis/subglottic stenosis- Status post recent procedure at [facility] for such. Follows with Dr Mondragon locally. (8) SGS (subglottic stenosis): See above (9) Diabetes type 2, uncontrolled: Hemoglobin A1c 8.8%. Continue novolog with lantus. BSGs controlled. Had lows today - Pharmacy managing - they will make adjustments. (10) Asthma: controlled/no exacerbation at this time cont albuterol qid recent wheezing I suspect was pulmonary edema related (11) Depression: Continue duloxetine 30 mg daily (12) Essential hypertension: Controlled with current medications. (13) Obstructive sleep apnea of adult: CPAP at bedtime. (14) GERD without esophagitis: Continue pantoprazole and metoclopramide (15) Hypothyroidism: Continue levothyroxine 88 mcg daily TSH 7.2 early January Repeat TSH this admit wnl (16) Dyslipidemia: Continue fenofibric acid and simvastatin/Zetia (17) Oropharyngeal dysphagia: Video swallow showed minimal aspiration this admission no issues swallowing fine on minced/moist diet (18) Elevated liver transaminase level: ast and alt normalized with diuresis this suggests the elevations were 2nd to hepatic congestion from CHF (19) prison (current) use of anticoagulants: resumed coumadin on 03/11 INR therapeutic again today no changes to coumadin INR daily qam (20) Discharge planning issues: 03/15/21 - spoke with Federica Jah, pt's sister and POA. see "history" section from that progress note for details on that conversation. I fully agree with Federica that Ms Baer is truly not in a position to be living independently given her numerous medical issues, difficulty carrying out ADLs, intellectual disability, etc. best scenario - SNF - at least short-term, could be long-term. If she rehabs well enough perhaps she could get to a point that [facility]/assisted living would be feasible. social work aware - SNF referrals to be made (21) Intellectual disability: mild (22) DVT prophylaxis: coumadin updated pt's sister again today, 03/17/21 Admission and Anticipated Discharge Date Admission Date: March 07, 2021 Subjective told patient during visit that stress test was neg/normal tele overnight - NSR, no a.fib or NSVT feeling good today although had mild chest heaviness with walking to bathroom today resolved w/ rest denies any new complaints Review of Systems 2 Constitutional: no fatigue and no anorexia Respiratory: + dyspnea on exertion; no cough and no wheezing Cardiovascular: as per Subjective / HPI and + edema; no dyspnea at rest and no orthopnea Gastrointestinal: no abdominal pain, no nausea and no vomiting Physical Exam Constitutional: + morbidly obese; no acute distress and no altered mental status ENMT: external ear and nose normal, oropharynx normal Respiratory: no respiratory distress Auscultation: + diminished lung sounds (bases) and + rales (bases - minimal - best she has sounded all week); no wheezes Cardiovascular: Rate/Rhythm: regular rate and regular rhythm Heart Sounds: normal S1 and normal S2 Vessels: posterior tibial pulses present and dorsalis pedis pulses present; no JVD Extremities: + edema (2+ b/l -- but maybe slightly less than pr) Gastrointestinal (Abdomen): normal bowel sounds, soft, nontender, no hepatosplenomegaly Psychiatric: A+Ox3, euthymic affect Results & Data Results & Data ([facility]) Vital Signs (Past 12 Hours) Vital Signs Temp Pulse Pulse Pulse Resp BP Pulse Ox 03/17/21 19:28 36.9 C 57 L 18 110/66 94 03/17/21 16:22 60 03/17/21 15:17 36.8 C 56 L 18 127/67 94 03/17/21 11:00 36.9 C 55 L 17 127/69 94 Laboratory Results Laboratory Results - last 24 hr 03/16/21 03/17/21 03/17/21 20:35 06:16 06:16 WBC 6.96 RBC 3.13 L Hgb 8.3 L Hct 27.3 L MCV 87.2 MCH 26.5 MCHC 30.4 L RDW Std Deviation 51.9 H RDW Coeff of Melonie 18.0 H Plt Count 188 MPV 10.5 H PT 25.8 H INR 2.8 H Sodium Potassium Chloride Carbon Dioxide Anion Gap BUN Creatinine Est Cr Clr Drug Dosing Est GFR ( Amer) Est GFR (Non-Af Amer) BUN/Creatinine Ratio Glucose POC Glucose 88 Calcium 03/17/21 03/17/21 03/17/21 06:16 07:25 11:27 WBC RBC Hgb Hct MCV MCH MCHC RDW Std Deviation RDW Coeff of Melonie Plt Count MPV PT INR Sodium 141 Potassium 4.0 Chloride 106 Carbon Dioxide 28 Anion Gap 7.0 BUN 67 H Creatinine 2.37 H Est Cr Clr Drug Dosing 23.0 Est GFR ( Amer) 22.2 Est GFR (Non-Af Amer) 19.1 BUN/Creatinine Ratio 28.1 H Glucose 125 H POC Glucose 134 H 238 H Calcium 9.1 03/17/21 03/17/21 03/17/21 16:04 16:06 16:37 WBC RBC Hgb Hct MCV MCH MCHC RDW Std Deviation RDW Coeff of Melonie Plt Count MPV PT INR Sodium Potassium Chloride Carbon Dioxide Anion Gap BUN Creatinine Est Cr Clr Drug Dosing Est GFR ( Amer) Est GFR (Non-Af Amer) BUN/Creatinine Ratio Glucose POC Glucose 64 L* 64 L* 85 Calcium 03/17/21 20:18 WBC RBC Hgb Hct MCV MCH MCHC RDW Std Deviation RDW Coeff of Melonie Plt Count MPV PT INR Sodium Potassium Chloride Carbon Dioxide Anion Gap BUN Creatinine Est Cr Clr Drug Dosing Est GFR ( Amer) Est GFR (Non-Af Amer) BUN/Creatinine Ratio Glucose POC Glucose 109 H Calcium PG Care Time/CCT Total # of Minutes Spent Total Time Spent with Patient: Total time spent is greater than 50% in coordination of care (as documented) at patient's floor/unit and/or counseling patient: Coding Level of Care Code 96258 Subseq Hosp Care Lvl 2 Diagnoses Acute on chronic heart failure with preserved ejection fraction (HFpEF) I50.33 Nonsustained ventricular tachycardia I47.2 Chest heaviness R07.89 CKD (chronic kidney disease), stage IV N18.4 Iron deficiency anemia D50.8 Iron deficiency anemia type: other iron deficiency Paroxysmal atrial fibrillation I48.0 Stenosis of trachea J39.8 SGS (subglottic stenosis) J38.6 Diabetes type 2, uncontrolled E11.65 Glycemic state: with hyperglycemia Asthma J45.40 Asthma complication type: uncomplicated Asthma persistence: persistent Asthma severity: moderate Depression F32.9 Active/Remission status: remission status unspecified Depression Type: major depressive disorder Major depression recurrence: unspecified whether recurrent Essential hypertension I10 Obstructive sleep apnea of adult G47.33 GERD without esophagitis K21.9 Hypothyroidism E03.9 Hypothyroidism type: unspecified Dyslipidemia E78.5 Oropharyngeal dysphagia R13.12 Elevated liver transaminase level R74.01 roasterman (current) use of anticoagulants Z79.01 Discharge planning issues Z02.9 Intellectual disability F79 DVT prophylaxis Z29.9 (1) Depression Active/Remission status: remission status unspecified Depression Type: major depressive disorder Major depression recurrence: unspecified whether recurrent Qualified Code(s): F32.9 - Major depressive disorder, single episode, unspecified (2) Hypothyroidism Hypothyroidism type: unspecified Qualified Code(s): E03.9 - Hypothyroidism, unspecified (3) Diabetes type 2, uncontrolled Glycemic state: with hyperglycemia Qualified Code(s): E11.65 - Type 2 diabetes mellitus with hyperglycemia (4) Iron deficiency anemia Iron deficiency anemia type: other iron deficiency Qualified Code(s): D50.8 - Other iron deficiency anemias (5) Asthma Asthma complication type: uncomplicated Asthma persistence: persistent Asthma severity: moderate Qualified Code(s): J45.40 - Moderate persistent asthma, uncomplicated
[2021-03-17] MEDS: EZETIMIBE/SIMVASTATIN 10/40MG 1 TAB TAB PO SCH (20:38)
[2021-03-17] MEDS: clonazePAM 0.5 MG TAB PO SCH (20:38)
[2021-03-17] MEDS: METOCLOPRAMIDE HCL 10 MG TABLET PO SCH (20:39)
[2021-03-18] MEDS: ACETAMINOPHEN 325 MG TAB PO PRN ×3 (00:31→20:52)
[2021-03-18] MEDS: LEVOTHYROXINE SODIUM 88 MCG TABLET PO SCH (06:28)
[2021-03-18 07:20] LABS: Hematocrit (blood only) 27.5 % (37-47); Hemoglobin 8.7 g/dL (12.0-16.0); Mean Corpuscular Hemoglobin 27.1 pg (25-34); Mean Corpuscular Hgb Conc 31.6 g/dL (32-36); Mean Corpuscular Volume 85.7 fL (80-100); Mean Platelet Volume 9.7 fL (7.4-10.4); Nucleated RBC # (auto) 0.02 K/uL (0-0); Nucleated RBC % (auto) 0.2 %; Platelet Count 171 K/uL (130-400); RDW Coefficient of Variation 18.1 % (11.5-14.5); RDW Standard Deviation 51.1 fL (36.4-46.3); Red Blood Count 3.21 M/uL (4.2-5.4); White Blood Count 7.62 K/uL (4.8-10.8)
[2021-03-18 07:36] LABS: BUN Creatinine Ratio 24.3 (10-20); Calcium 8.7 mg/dl (8.5-10.1); Creatinine Clr Calc Pharmacy 22.3 ml/min; Est GFR (African American) 22.2 ml/min; Est GFR (Non-African American) 19.1 ml/min; Potassium 3.6 mmol/L (3.5-5.1)
[2021-03-18 07:38] LABS: INR 2.4 (0.9-1.1); Prothrombin Time 22.5 Seconds (9.0-12.0)
[2021-03-18] MEDS: AZELASTINE SCH ×2 (08:19→20:48)
[2021-03-18] MEDS: DICLOFENAC SOD 1% GEL 100 GM TUBE EXT SCH ×4 (08:20→20:44)
[2021-03-18] MEDS: FENOFIBRIC ACID PO SCH (08:20)
[2021-03-18] MEDS: METOPROLOL TARTRATE 25 MG TAB PO SCH ×2 (08:21→20:42)
[2021-03-18] MEDS: PANTOprazole 40 MG TAB PO SCH (08:21)
[2021-03-18] MEDS: POTASSIUM CHLORIDE CRTAB 20 MEQ TABCR PO SCH (08:21)
[2021-03-18] MEDS: DULoxetine HCL 30 MG CAP PO SCH (08:22)
[2021-03-18] MEDS: CALCITRIOL 0.25 MCG CAPSULE PO SCH (08:22)
[2021-03-18] MEDS: ISOSORBIDE MONO EXTENDED REL 30 MG TABCR PO SCH ×3 (08:22→20:45)
[2021-03-18] MEDS: guaiFENesin 600 MG TABCR PO SCH ×2 (08:22→20:41)
[2021-03-18] MEDS: BUMETANIDE 1 MG TAB PO SCH ×2 (08:23→17:04)
[2021-03-18] MEDS: allopurinoL 100 MG TAB PO SCH (08:23)
[2021-03-18] MEDS: DOCUSATE SODIUM 100 MG CAP PO SCH ×4 (08:23→20:44)
[2021-03-18] MEDS: POLYETHYLENE (MIRALAX) 17 GM PACK PO SCH ×2 (08:23→20:49)
[2021-03-18] MEDS: INSULIN GLARGINE SOLOSTAR 100 UNITS/ML 3 ML PEN SC SCH ×2 (08:24→20:47)
[2021-03-18] MEDS: INSULIN ASPART 100 UNITS/ML 3 ML PEN SC SCH ×4 (08:25→20:46)
[2021-03-18] MEDS: metOLazone 2.5 MG TABLET PO SCH (08:39)
[2021-03-18] MEDS: FEXOFENADINE HCL 180 MG TAB PO SCH (09:52)
--- NOTE | 2021-03-18 11:12 | Nephrology Progress Note ---
Date of Service March 18, 2021 Assessment & Plan (1) CKD (chronic kidney disease), stage IV: * Stable kidney function. Baseline Cr 2.4 * Net 1.3 L UO overnight. * Continue Bumex 4 mg po BID, Zaroxolyn 2.5 mg daily * Recheck UO, PRP in am * Possible transfer to SNF Mon/Tues * If transfer is anticipated, please have patient follow up w/ Dr. Sanchez in 7 - 14 days ([phone]) (2) Essential hypertension: * BP acceptable. Volume status improving * On Imdur, Metoprolol (3) Acute on chronic heart failure with preserved ejection fraction (HFpEF): * Weight is down 10 kg since admission (116kg --> 106 kg) * Goal is to maintain net negative fluid balance >1 L/d. * Nuclear stress test was negative for inducible ischemia, LVEF 57% (4) Chronic anemia: * Completed 2g infusion of IV Venofer * Epogen 10,000 units SQ x1 given 03/17/21 (5) Secondary hyperparathyroidism of renal origin: * On Calcitriol and Ergocalciferol * Monitor serum Ca Admission and Anticipated Discharge Date Admission Date: March 07, 2021 Subjective Mrs. Baer was seen & examined in her hospital room this morning. She was sitting up and breathing comfortably on RA during my evaluation. Mrs. Baer reports that he breathing has improved but she still has significant LE swelling. Review of Systems Constitutional: no fever Eyes: no problem reported Ear, Nose, Mouth, Throat: no problem reported Respiratory: no dyspnea Cardiovascular: + edema; no chest pain and no palpitations Gastrointestinal: no abdominal pain, no nausea and no diarrhea/loose stools Genitourinary: no dysuria and no hematuria Integumentary: no rash Neurologic: no confusion Physical Exam Constitutional: + overweight; not in distress Eyes: PERRL, conjunctivae normal, anicteric sclerae ENMT: external ear and nose normal, oropharynx normal Neck: trachea midline, no thyromegaly Respiratory: normal respiratory effort, lungs clear to auscultation Cardiovascular: RRR, no murmur, no edema Extremities: + edema (tense B LE swelling) Gastrointestinal (Abdomen): normal bowel sounds, soft, nontender, no hepatosplenomegaly Musculoskeletal: Extremities: no cyanosis Skin: no rashes, warm and dry Neurologic: awake; not confused Results & Data ([facility]) Vital Signs (Past 12 Hours) Vital Signs Temp Pulse Pulse Resp BP BP Pulse Ox 03/18/21 11:01 36.2 C L 53 L 20 123/62 92 03/18/21 09:03 61 03/18/21 07:36 37.0 C 65 20 123/66 90 03/18/21 04:51 61 03/18/21 03:38 55 L 20 97 03/18/21 03:00 36.8 C 51 L 20 122/56 L 99 03/17/21 23:53 64 16 96 Laboratory Tests 03/18/21 03/18/21 06:58 06:58 WBC 7.62 Hgb 8.7 L Hct 27.5 L Plt Count 171 Sodium 141 Potassium 3.6 Chloride 104 Carbon Dioxide 30 BUN 58 H Creatinine 2.37 H Glucose 128 H Calcium 8.7 PG Care Time/CCT Total # of Minutes Spent Total Time Spent with Patient: Total time spent is greater than 50% in coordination of care (as documented) at patient's floor/unit and/or counseling patient: Coding Level of Care Code 51742 Subseq Hosp Care Lvl 3 Diagnoses CKD (chronic kidney disease), stage IV N18.4 Essential hypertension I10 Acute on chronic heart failure with preserved ejection fraction (HFpEF) I50.33 Chronic anemia D64.9 Secondary hyperparathyroidism of renal origin N25.81
--- NOTE | 2021-03-18 11:44 | Pharmacy Report ---
Pharmacy Glycemic Short Note 2 - Date of Service March 18, 2021 - Glycemic Short BSG Results (Last 24 hours): 03/17/21 03/17/21 03/17/21 16:04 16:06 16:37 Glucose POC Glucose 64 L* 64 L* 85 03/17/21 03/18/21 03/18/21 20:18 06:58 07:14 Glucose 128 H POC Glucose 109 H 135 H 03/18/21 10:58 Glucose POC Glucose 164 H OUTPATIENT ANTIDIABETIC REGIMEN: * Insulin glargine (Basaglar) 45 units SQ BID * NovoLog 3-6 units SQ with meals * A1c = 6.5% on 03/08/21 ASSESSMENT: 03/18 * Patient's blood sugars well controlled except for one episode of hypoglycemia yesterday prior to dinner, likely due to excess correctional insulin * loosen CF * Fasting blood sugar 128mg/dl - continue Lantus orders (with reduced HS dose as adjusted yesterday) 03/16 * Pt has received 36 units of insulin over the past 24hrs * 27 units of basal with Lantus * 9 units of bolus with NovoLog (low bolus insulin dosing secondary to NPO yesterday AM) * BSGs [phone] mg/dl * Was not able to get Lexiscan stress test yesterday - scheduled for today. Pt NPO this AM. Will reduce Lantus again to 12 units for NPO * BSGs slightly elevated at dinner and HS despite NPO at breakfast and lunch. Most likely d/t reduced Lantus for NPO. Pt had only received 10 units of Lantus the night prior. Last night pt received 15 units of Lantus so appropriate to decrease dose for NPO today. Pt probably could have tolerated full AM Lantus dose of 15 units yesterday morning but BSGs still reasonable. 03/15: * Pt has received 47 units of insulin over the past 24hrs * 25 units of basal with Lantus * 22 units of bolus with NovoLog * BSGs [phone] mg/dl * Pt is currently NPO for lexiscan nuclear stress test- will give 80% of basal insulin dose this AM for short NPO procedure. * Post-prandial BSGs in goal range- no changes needed to CF/CR 03/14 * BSGs reasonably controlled yesterday sans lunch of 201 mg/dL (otherwise 128, 113, and 146 mg/dL) * Novolog tightened yesterday at lunchtime - will continue * Patient received 38 units of insulin (20 units of lantus and 18 units of Novolog) * *Patient should have received 15 units of Lantus at HS based on BSG, but received 10 units * Fasting BSG of 154 mg/dL * Will increase Lantus today 03/13 * BSGs yesterday of 123, 187, 144, and 169 mg/dL * Received 35 units of insulin (20 units of basal and 15 units of prandial/correctional bolus) * Fasting BSG of 128 mg/dL this morning * Will utilize scale again today as inpatient insulin needs have been reduced compared to outpatient 03/08 * 75yo T2DM female with excellent outpatient control per recent A1c * Pt with LOW BSG today secondary to too much basal insulin on board * Outpatient regimen is heavily weighted towards basal insulin (basal insulin = 90 units; bolus insulin max 18 units) indicating that basal insulin is covering some prandial requirements. * Pt with LOW BSG when outpatient basal insulin continued with NPO status * Will adjust/decrease insulin regimen for NPO and continue to titrate based on BSG trends. PLAN FOR INPATIENT GLYCEMIC CONTROL: * Basal insulin * Lantus 15 units SC qAM * Lantus 0-5 units SQ HS * Bolus insulin * NovoLog per scale ACHS or Q6hrs while NPO * Goal Range: Low 110 mg/dL - High 140 mg/dL * Correction Factor: 35 mg/dL/unit * Nutritional / Prandial insulin per carb ratio of 1 unit per 8 grams CHO consumed PLAN FOR DISCHARGE: * HbA1c of 6.5% suggests excellent outpatient glycemic control * Lantus dose may need to be adjusted based on appetite at time of discharge * Home dose of Lantus 45 units SC BID will likely need to be reduced * At this point, Lantus 15 units SQ AM and 5 units HS recommended * Novolog 3-6 units SC with meals seems appropriate at this time * Will continue to follow and adjust discharge recs as necessary
[2021-03-18] MEDS: WARFARIN SOD 2 MG TAB PO SCH (17:04)
[2021-03-18] MEDS: EZETIMIBE/SIMVASTATIN 10/40MG 1 TAB TAB PO SCH (20:42)
[2021-03-18] MEDS: METOCLOPRAMIDE HCL 10 MG TABLET PO SCH (20:43)
--- NOTE | 2021-03-18 22:00 | Hospitalist Progress Note ---
Date of Service March 18, 2021 Assessment & Plan (1) Acute on chronic heart failure with preserved ejection fraction (HFpEF): Nice drop in weight overnight with addition of zaroxylyn 2.5mg qam prior to AM bumex. Creatinine tolerated such - in fact, Cr actually improved slightly to 2.3 today. Continue the AM zaroxylyn 2.5mg daily before AM bumex. Continue Bumex 4 mg PO twice daily. BMP daily. Continue BB. Not FELIX or ARB candidate due to CKD. Daily weights - standing scale only. Patient appears to be tolreating the edication. Will continue current medications and try to remove as much fluid as possible during hospital stay. (2) Nonsustained ventricular tachycardia: 11-beat run 03/14/21 (morning) while exercising/working with PT. She is a poor historian but did seem to have had symptoms from this during the PT. Could be aberrancy but less likely. The NSVT, coupled with recurrent episodes of exertional chest heaviness/pain over the last 6-12 months, along with numerous CAD risk factors -- were all concerning for ischemia. Lexiscan nuclear stress test NEGATIVE for ischemia. Cont beta sharon. K/mag wnl. (3) Chest heaviness: multiple etiologies possible but CAD was top concern. episodes occur usually with exertion. also, chronic pulm edema, asthma, musculoskeletal all can contribute. Lexiscan nuclear stress test yesterday NEGATIVE. When she achieves euvolemia and if chest pain/heaviness persists - cath?? But she has poor renal function and she is NOT a good candidate for such. Simply monitor for now. (4) CKD (chronic kidney disease), stage IV: Baseline Cr 1.9 to-2.6. Creatinine 2.3 today. Continue BMP daily. Appreciate nephrology consultation/recs. (5) Iron deficiency anemia: completed 5-day course of daily venofer. CBC today stable. no overt GI bleeding. fecal occult negative. (6) Paroxysmal atrial fibrillation: NSR on tele. Cont BB. INR therapeutic again today with use of coumadin 2mg/day. Had been supratherapeutic at admission on 2.5mg/day of coumadin. INR qam. (7) Stenosis of trachea: Tracheal stenosis/subglottic stenosis- Status post recent procedure at [facility] for such. Follows with Dr Mondragon locally. (8) SGS (subglottic stenosis): See above (9) Diabetes type 2, uncontrolled: Hemoglobin A1c 8.8%. Continue novolog with lantus. BSGs controlled. Had lows today - Pharmacy managing - they will make adjustments. (10) Asthma: controlled/no exacerbation at this time cont albuterol qid recent wheezing I suspect was pulmonary edema related (11) Depression: Continue duloxetine 30 mg daily (12) Essential hypertension: Controlled with current medications. (13) Obstructive sleep apnea of adult: CPAP at bedtime. 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 see "history" section from that progress note for details on that conversation. I fully agree with Federica that Ms Baer is truly not in a position to be living independently given her numerous medical issues, difficulty carrying out ADLs, intellectual disability, etc. best scenario - SNF - at least short-term, could be long-term. If she rehabs well enough perhaps she could get to a point that [facility]/assisted living would be feasible. social work aware - SNF referrals to be made (21) Intellectual disability: mild (22) DVT prophylaxis: coumadin updated pt's sister again today, 03/17/21 Admission and Anticipated Discharge Date Admission Date: March 07, 2021 Subjective Patient reports no new symptoms at this time. Review of Systems Review of Systems: All systems reviewed & are unremarkable except as noted in HPI & below Physical Exam Physical Exam: Constitutional: + morbidly obese; no acute distress and no altered mental status ENMT: external ear and nose normal, oropharynx normal Respiratory: no respiratory distress Auscultation: + diminished lung sounds (bases) and + rales (bases - minimal - best she has sounded all week); no wheezes Cardiovascular: Rate/Rhythm: regular rate and regular rhythm Heart Sounds: normal S1 and normal S2 Vessels: posterior tibial pulses present and dorsalis pedis pulses present; no JVD Extremities: + edema (2+ b/l -- but maybe slightly less than pr) Gastrointestinal (Abdomen): normal bowel sounds, soft, nontender, no hepatosplenomegaly Psychiatric: A+Ox3, euthymic affect Results & Data Results & Data ([facility]) Vital Signs (Past 12 Hours) Vital Signs Temp Pulse Pulse Pulse Resp BP Pulse Ox 03/18/21 19:28 36.6 C 57 L 20 133/67 95 03/18/21 17:21 55 L 03/18/21 15:19 36.9 C 54 L 17 121/65 96 03/18/21 11:01 36.2 C L 53 L 20 123/62 92 PG Care Time/CCT Total # of Minutes Spent Total Time Spent with Patient: Total time spent is greater than 50% in coordination of care (as documented) at patient's floor/unit and/or counseling patient: Coding Level of Care Code 87715 Subseq Hosp Care Lvl 3 Diagnoses Acute on chronic heart failure with preserved ejection fraction (HFpEF) I50.33 Nonsustained ventricular tachycardia I47.2 Chest heaviness R07.89 CKD (chronic kidney disease), stage IV N18.4 Iron deficiency anemia D50.8 Iron deficiency anemia type: other iron deficiency Paroxysmal atrial fibrillation I48.0 Stenosis of trachea J39.8 SGS (subglottic stenosis) J38.6 Diabetes type 2, uncontrolled E11.65 Glycemic state: with hyperglycemia Asthma J45.40 Asthma complication type: uncomplicated Asthma persistence: persistent Asthma severity: moderate Depression F32.9 Active/Remission status: remission status unspecified Depression Type: major depressive disorder Major depression recurrence: unspecified whether recurrent Essential hypertension I10 Obstructive sleep apnea of adult G47.33 GERD without esophagitis K21.9 Hypothyroidism E03.9 Hypothyroidism type: unspecified Dyslipidemia E78.5 Oropharyngeal dysphagia R13.12 Elevated liver transaminase level R74.01 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 Z79.01 Discharge planning issues Z02.9 Intellectual disability F79 DVT prophylaxis Z29.9 Time Spent (min) 35 Comment chart review/ d/w previous hospitalist (1) Depression Active/Remission status: remission status unspecified Depression Type: major depressive disorder Major depression recurrence: unspecified whether recurrent Qualified Code(s): F32.9 - Major depressive disorder, single episode, unsp ecified (2) Hypothyroidism Hypothyroidism type: unspecified Qualified Code(s): E03.9 - Hypothyroidism, unspecified (3) Diabetes type 2, uncontrolled Glycemic state: with hyperglycemia Qualified Code(s): E11.65 - Type 2 diabetes mellitus with hyperglycemia (4) Iron deficiency anemia Iron deficiency anemia type: other iron deficiency Qualified Code(s): D50.8 - Other iron deficiency anemias (5) Asthma Asthma complication type: uncomplicated Asthma persistence: persistent Asthma severity: moderate Qualified Code(s): J45.40 - Moderate persistent asthma, uncomplicated
[2021-03-18] MEDS: clonazePAM 0.5 MG TAB PO SCH (22:13)
[2021-03-19] MEDS: LEVOTHYROXINE SODIUM 88 MCG TABLET PO SCH (05:45)
[2021-03-19 07:11] LABS: INR 2.2 (0.9-1.1)
[2021-03-19 08:13] LABS: Hematocrit (blood only) 29.4 % (37-47); Hemoglobin 9.3 g/dL (12.0-16.0); Mean Corpuscular Volume 85.2 fL (80-100); Mean Platelet Volume 10.5 fL (7.4-10.4); Nucleated RBC # (auto) 0.03 K/uL (0-0); Nucleated RBC % (auto) 0.4 %; Platelet Count 178 K/uL (130-400); RDW Coefficient of Variation 18.5 % (11.5-14.5); RDW Standard Deviation 52.6 fL (36.4-46.3); Red Blood Count 3.45 M/uL (4.2-5.4); White Blood Count 7.51 K/uL (4.8-10.8)
[2021-03-19 08:16] LABS: Mean Corpuscular Hgb Conc 31.6 g/dL (32-36)
[2021-03-19 08:18] LABS: BUN Creatinine Ratio 24.9 (10-20); Calcium 8.9 mg/dl (8.5-10.1); Est GFR (African American) 19.1 ml/min; Est GFR (Non-African American) 16.5 ml/min; Potassium 3.2 mmol/L (3.5-5.1)
[2021-03-19] MEDS: AZELASTINE SCH (08:37)
[2021-03-19] MEDS: CALCITRIOL 0.25 MCG CAPSULE PO SCH (08:38)
[2021-03-19] MEDS: PANTOprazole 40 MG TAB PO SCH (08:38)
[2021-03-19] MEDS: guaiFENesin 600 MG TABCR PO SCH ×2 (08:38→22:28)
[2021-03-19] MEDS: POTASSIUM CHLORIDE CRTAB 20 MEQ TABCR PO SCH (08:38)
[2021-03-19] MEDS: DULoxetine HCL 30 MG CAP PO SCH (08:38)
[2021-03-19] MEDS: FENOFIBRIC ACID PO SCH (08:38)
[2021-03-19] MEDS: metOLazone 2.5 MG TABLET PO SCH (08:38)
[2021-03-19] MEDS: FEXOFENADINE HCL 180 MG TAB PO SCH (08:38)
[2021-03-19] MEDS: POLYETHYLENE (MIRALAX) 17 GM PACK PO SCH ×2 (08:38→22:29)
[2021-03-19] MEDS: DOCUSATE SODIUM 100 MG CAP PO SCH ×4 (08:39→22:27)
[2021-03-19] MEDS: ISOSORBIDE MONO EXTENDED REL 30 MG TABCR PO SCH ×3 (08:39→22:28)
[2021-03-19] MEDS: DICLOFENAC SOD 1% GEL 100 GM TUBE EXT SCH ×4 (08:40→22:27)
[2021-03-19] MEDS: allopurinoL 100 MG TAB PO SCH (08:40)
[2021-03-19] MEDS: BUMETANIDE 1 MG TAB PO SCH ×2 (08:40→17:13)
[2021-03-19] MEDS: METOPROLOL TARTRATE 25 MG TAB PO SCH ×2 (08:40→22:28)
[2021-03-19] MEDS: INSULIN GLARGINE SOLOSTAR 100 UNITS/ML 3 ML PEN SC SCH ×2 (08:40→22:29)
[2021-03-19] MEDS: INSULIN ASPART 100 UNITS/ML 3 ML PEN SC SCH ×4 (08:41→22:29)
--- NOTE | 2021-03-19 09:51 | Nephrology Progress Note ---
Date of Service March 19, 2021 Assessment & Plan (1) CKD (chronic kidney disease), stage IV: * Kidney function is relatively stable. Baseline Cr 2.4 * LE edema is mildly improved. Net 1.4 L UO overnight. * Will reduce Bumex to 2 mg po BID * Continue Zaroxolyn 2.5 mg daily * Serum K low at 3.2 this am. Patient is taking KCl 20 mEq po qAM. Will provid additional 20 mEq this am * Recheck UO, PRP in am * Possible transfer to SNF Fri/ * If transfer is anticipated, please have patient follow up w/ Dr. Sanchez in 7 - 14 days ([phone]) (2) Essential hypertension: * BP acceptable. Volume status improving * On Imdur, Metoprolol (3) Acute on chronic heart failure with preserved ejection fraction (HFpEF): * Weight is down 10 kg since admission (116kg --> 106 kg) * Goal is to maintain net negative fluid balance >1 L/d. * Nuclear stress test was negative for inducible ischemia, LVEF 57% (4) Chronic anemia: * Completed 2g infusion of IV Venofer * Epogen 10,000 units SQ x1 given 03/17/21 (5) Secondary hyperparathyroidism of renal origin: * On Calcitriol and Ergocalciferol * Monitor serum Ca Admission and Anticipated Discharge Date Admission Date: March 07, 2021 Subjective Mrs. Baer was seen & examined in her hospital room this morning. She reports that her breathing has improved but she still has significant LE swelling. Review of Systems Constitutional: no fever Eyes: no problem reported Ear, Nose, Mouth, Throat: no problem reported Respiratory: no dyspnea Cardiovascular: + edema; no chest pain and no palpitations Gastrointestinal: no abdominal pain, no nausea and no diarrhea/loose stools Genitourinary: no dysuria and no hematuria Integumentary: no rash Neurologic: no confusion Physical Exam Constitutional: + overweight; not in distress Eyes: PERRL, conjunctivae normal, anicteric sclerae ENMT: external ear and nose normal, oropharynx normal Neck: trachea midline, no thyromegaly Respiratory: normal respiratory effort, lungs clear to auscultation Cardiovascular: RRR, no murmur, no edema Extremities: + edema (2+ B LE swelling) Gastrointestinal (Abdomen): normal bowel sounds, soft, nontender, no hepatosplenomegaly Musculoskeletal: Extremities: no cyanosis Skin: no rashes, warm and dry Neurologic: awake; not confused Results & Data ([facility]) Vital Signs (Past 12 Hours) Vital Signs Temp Pulse Pulse Resp BP BP Pulse Ox 03/19/21 07:47 36.8 C 61 19 118/68 93 03/19/21 04:16 36.4 C L 53 L 24 135/55 L 98 03/19/21 03:37 66 22 96 03/19/21 03:18 52 L 96 03/19/21 01:19 57 L 03/19/21 00:12 36.4 C L 54 L 20 118/68 96 Laboratory Tests 03/19/21 03/19/21 06:27 06:27 WBC 7.51 Hgb 9.3 L Hct 29.4 L Plt Count 178 Sodium 137 Potassium 3.2 L Chloride 99 Carbon Dioxide 30 BUN 67 H Creatinine 2.68 H D Glucose 145 H PG Care Time/CCT Total # of Minutes Spent Total Time Spent with Patient: Total time spent is greater than 50% in coordination of care (as documented) at patient's floor/unit and/or counseling patient: Coding Level of Care Code 08792 Subseq Hosp Care Lvl 3 Diagnoses CKD (chronic kidney disease), stage IV N18.4 Essential hypertension I10 Acute on chronic heart failure with preserved ejection fraction (HFpEF) I50.33 Chronic anemia D64.9 Secondary hyperparathyroidism of renal origin N25.81
[2021-03-19] MEDS ORDERED: POTASSIUM CHLORIDE 20 MEQ/15 ML UDC PO ONE (10:15)
[2021-03-19] MEDS: ACETAMINOPHEN 325 MG TAB PO PRN (14:17)
[2021-03-19] MEDS: WARFARIN SOD 2 MG TAB PO SCH (17:13)
--- NOTE | 2021-03-19 21:25 | Hospitalist Progress Note ---
Date of Service March 19, 2021 Assessment & Plan (1) Acute on chronic heart failure with preserved ejection fraction (HFpEF): Nice drop in weight overnight with addition of zaroxylyn 2.5mg qam prior to AM bumex. Creatinine tolerated such - in fact, Cr actually improved slightly to 2.3 today. Continue the AM zaroxylyn 2.5mg daily before AM bumex. Continue Bumex 4 mg PO twice daily. BMP daily. Continue BB. Not FELIX or ARB candidate due to CKD. Daily weights - standing scale only. Patient appears to be tolerating the medication. Will continue current medications and try to remove as much fluid as possible during hospital stay. Patient appears close to discharge. (2) Nonsustained ventricular tachycardia: 11-beat run 03/14/21 (morning) while exercising/working with PT. She is a poor historian but did seem to have had symptoms from this during the PT. Could be aberrancy but less likely. The NSVT, coupled with recurrent episodes of exertional chest heaviness/pain over the last 6-12 months, along with numerous CAD risk factors -- were all con cerning for ischemia. Lexiscan nuclear stress test NEGATIVE for ischemia. Cont beta sharon. K/mag wnl. (3) Chest heaviness: multiple etiologies possible but CAD was top concern. episodes occur usually with exertion. also, chronic pulm edema, asthma, musculoskeletal all can contribute. Lexiscan nuclear stress test yesterday NEGATIVE. When she achieves euvolemia and if chest pain/heaviness persists - cath?? But she has poor renal function and she is NOT a good candidate for such. Simply monitor for now. (4) CKD (chronic kidney disease), stage IV: Baseline Cr 1.9 to-2.6. Creatinine 2.3 today. Continue BMP daily. Appreciate nephrology consultation/recs. (5) Iron deficiency anemia: completed 5-day course of daily venofer. CBC today stable. no overt GI bleeding. fecal occult negative. (6) Paroxysmal atrial fibrillation: NSR on tele. Cont BB. INR therapeutic again today with use of coumadin 2mg/day. Had been supratherapeutic at admission on 2.5mg/day of coumadin. INR qam. (7) Stenosis of trachea: Tracheal stenosis/subglottic stenosis- Status post recent procedure at [facility] for such. Follows with Dr Alanna wu. (8) SGS (subglottic stenosis): See above (9) Diabetes type 2, uncontrolled: Hemoglobin A1c 8.8%. Continue novolog with lantus. BSGs controlled. Had lows today - Pharmacy managing - they will make adjustments. (10) Asthma: controlled/no exacerbation at this time cont albuterol qid recent wheezing I suspect was pulmonary edema related (11) Depression: Continue duloxetine 30 mg daily (12) Essential hypertension: Controlled with current medications. (13) Obstructive sleep apnea of adult: CPAP at bedtime. 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 see "history" section from that progress note for details on that conversation. I fully agree with Federica that Ms Baer is truly not in a position to be living independently given her numerous medical issues, difficulty carrying out ADLs, intellectual disability, etc. best scenario - SNF - at least short-term, could be long-term. If she rehabs well enough perhaps she could get to a point that [facility]/assisted living would be feasible. social work aware - SNF referrals to be made (21) Intellectual disability: mild (22) DVT prophylaxis: coumadin updated pt's sister again today, 03/17/21 Admission and Anticipated Discharge Date Admission Date: March 07, 2021 Subjective Patient reports feeling well. Has no new complaints. Review of Systems Review of Systems: All systems reviewed & are unremarkable except as noted in HPI & below Physical Exam Physical Exam: Constitutional: + morbidly obese; no acute distress and no altered mental status ENMT: external ear and nose normal, oropharynx normal Respiratory: no respiratory distress Auscultation: + diminished lung sounds (bases) and + rales (bases - minimal - best she has sounded all week); no wheezes Cardiovascular: Rate/Rhythm: regular rate and regular rhythm Heart Sounds: normal S1 and normal S2 Vessels: posterior tibial pulses present and dorsalis pedis pulses present; no JVD Extremities: + edema (2+ b/l -- but maybe slightly less than pr) Gastrointestinal (Abdomen): normal bowel sounds, soft, nontender, no hepatosplenomegaly Psychiatric: A+Ox3, euthymic affect Results & Data Results & Data ([facility]) Vital Signs (Past 12 Hours) Vital Signs Temp Pulse Pulse Pulse Resp BP Pulse Ox 03/19/21 19:52 36.9 C 63 18 143/68 H 93 03/19/21 16:43 56 L 03/19/21 15:32 36.8 C 67 19 103/68 94 03/19/21 11:04 36.6 C 65 19 139/67 96 03/19/21 10:12 58 L PG Care Time/CCT Total # of Minutes Spent Total Time Spent with Patient: Total time spent is greater than 50% in coordination of care (as documented) at patient's floor/unit and/or counseling patient: Coding Level of Care Code 85623 Subseq Hosp Care Lvl 2 Diagnoses Acute on chronic heart failure with preserved ejection fraction (HFpEF) I50.33 Nonsustained ventricular tachycardia I47.2 Chest heaviness R07.89 CKD (chronic kidney disease), stage IV N18.4 Iron deficiency anemia D50.8 Iron deficiency anemia type: other iron deficiency Paroxysmal atrial fibrillation I48.0 Stenosis of trachea J39.8 SGS (subglottic stenosis) J38.6 Diabetes type 2, uncontrolled E11.65 Glycemic state: with hyperglycemia Asthma J45.40 Asthma complication type: uncomplicated Asthma persistence: persistent Asthma severity: moderate Depression F32.9 Active/Remission status: remission status unspecified Depression Type: major depressive disorder Major depression recurrence: unspecified whether recurrent Essential hypertension I10 Obstructive sleep apnea of adult G47.33 GERD without esophagitis K21.9 Hypothyroidism E03.9 Hypothyroidism type: unspecified Dyslipidemia E78.5 Oropharyngeal dysphagia R13.12 Elevated liver transaminase level R74.01 detention (current) use of anticoagulants Z79.01 Discharge planning issues Z02.9 Intellectual disability F79 DVT prophylaxis Z29.9 Time Spent (min) 25 (1) Depression Active/Remission status: remission status unspecified Depression Type: major depressive disorder Major depression recurrence: unspecified whether recurrent Qualified Code(s): F32.9 - Major depressive disorder, single episode, unspecifi ed (2) Hypothyroidism Hypothyroidism type: unspecified Qualified Code(s): E03.9 - Hypothyroidism, unspecified (3) Diabetes type 2, uncontrolled Glycemic state: with hyperglycemia Qualified Code(s): E11.65 - Type 2 diabetes mellitus with hyperglycemia (4) Iron deficiency anemia Iron deficiency anemia type: other iron deficiency Qualified Code(s): D50.8 - Other iron deficiency anemias (5) Asthma Asthma complication type: uncomplicated Asthma persistence: persistent Asthma severity: moderate Qualified Code(s): J45.40 - Moderate persistent asthma, uncomplicated
[2021-03-19] MEDS: clonazePAM 0.5 MG TAB PO SCH (22:27)
[2021-03-19] MEDS: EZETIMIBE/SIMVASTATIN 10/40MG 1 TAB TAB PO SCH (22:27)
[2021-03-19] MEDS: METOCLOPRAMIDE HCL 10 MG TABLET PO SCH (22:28)
[2021-03-20] MEDS: AZELASTINE SCH ×3 (00:06→23:31)
[2021-03-20] MEDS: LEVOTHYROXINE SODIUM 88 MCG TABLET PO SCH (06:22)
[2021-03-20 06:46] LABS: Hematocrit (blood only) 29.9 % (37-47); Hemoglobin 9.5 g/dL (12.0-16.0); Mean Corpuscular Hemoglobin 26.9 pg (25-34); Mean Corpuscular Hgb Conc 31.8 g/dL (32-36); Mean Corpuscular Volume 84.7 fL (80-100); Mean Platelet Volume 9.7 fL (7.4-10.4); Platelet Count 154 K/uL (130-400); RDW Coefficient of Variation 18.5 % (11.5-14.5); RDW Standard Deviation 53.5 fL (36.4-46.3); Red Blood Count 3.53 M/uL (4.2-5.4); White Blood Count 8.64 K/uL (4.8-10.8)
[2021-03-20 07:18] LABS: BUN Creatinine Ratio 22.9 (10-20); Creatinine Clr Calc Pharmacy 20.3 ml/min; Est GFR (African American) 19.6 ml/min; Est GFR (Non-African American) 16.9 ml/min; Potassium 3.3 mmol/L (3.5-5.1)
[2021-03-20] MEDS: metOLazone 2.5 MG TABLET PO SCH (07:45)
[2021-03-20] MEDS: DULoxetine HCL 30 MG CAP PO SCH (08:54)
[2021-03-20] MEDS: ISOSORBIDE MONO EXTENDED REL 30 MG TABCR PO SCH ×3 (08:54→20:46)
[2021-03-20] MEDS: allopurinoL 100 MG TAB PO SCH (08:55)
[2021-03-20] MEDS: DOCUSATE SODIUM 100 MG CAP PO SCH ×4 (08:55→20:44)
[2021-03-20] MEDS: FEXOFENADINE HCL 180 MG TAB PO SCH (08:55)
[2021-03-20] MEDS: guaiFENesin 600 MG TABCR PO SCH ×2 (08:55→20:45)
[2021-03-20] MEDS: POTASSIUM CHLORIDE CRTAB 20 MEQ TABCR PO SCH ×2 (08:55→20:43)
[2021-03-20] MEDS: PANTOprazole 40 MG TAB PO SCH (08:55)
[2021-03-20] MEDS: CALCITRIOL 0.25 MCG CAPSULE PO SCH (08:55)
[2021-03-20] MEDS: METOPROLOL TARTRATE 25 MG TAB PO SCH ×2 (08:55→20:44)
[2021-03-20] MEDS: INSULIN GLARGINE SOLOSTAR 100 UNITS/ML 3 ML PEN SC SCH (08:57)
[2021-03-20] MEDS: DICLOFENAC SOD 1% GEL 100 GM TUBE EXT SCH ×4 (08:57→20:46)
[2021-03-20] MEDS: INSULIN ASPART 100 UNITS/ML 3 ML PEN SC SCH ×4 (08:58→20:47)
[2021-03-20] MEDS: ACETAMINOPHEN 325 MG TAB PO PRN (09:00)
[2021-03-20] MEDS: FENOFIBRIC ACID PO SCH (09:38)
[2021-03-20] MEDS: POLYETHYLENE (MIRALAX) 17 GM PACK PO SCH ×2 (09:40→20:45)
--- NOTE | 2021-03-20 10:06 | Nephrology Progress Note ---
Date of Service March 20, 2021 Assessment & Plan (1) CKD (chronic kidney disease), stage IV: * Kidney function is relatively stable. Baseline Cr 2.4 * LE edema is mildly improved. Patient continues to diurese. * Continue Bumex 2 mg po BID * Continue Zaroxolyn 2.5 mg daily * Increase KCl to 20 mEq po BID * Monitor PRP * Awaiting transfer to SNF * If transfer is anticipated, please have patient follow up w/ Dr. Sanchez in 7 - 14 days ([phone]) (2) Essential hypertension: * BP acceptable. Volume status improving * On Imdur, Metoprolol (3) Acute on chronic heart failure with preserved ejection fraction (HFpEF): * Weight is down 10 kg since admission (116kg --> 106 kg) * Goal is to maintain net negative fluid balance >1 L/d. * Nuclear stress test was negative for inducible ischemia, LVEF 57% (4) Chronic anemia: * Completed 2g infusion of IV Venofer * Epogen 10,000 units SQ x1 given 03/17/21 * Hgb is trending up (5) Secondary hyperparathyroidism of renal origin: * On Calcitriol and Ergocalciferol * Monitor serum Ca Admission and Anticipated Discharge Date Admission Date: March 07, 2021 Subjective Mrs. Baer was seen & examined in her hospital room this morning. She reports that she is breathing comfortably on room air. Her LE swelling is mildly improved Review of Systems Constitutional: no fever Eyes: no problem reported Ear, Nose, Mouth, Throat: no problem reported Respiratory: no dyspnea Cardiovascular: + edema; no chest pain and no palpitations Gastrointestinal: no abdominal pain, no nausea and no diarrhea/loose stools Genitourinary: no dysuria and no hematuria Integumentary: no rash Neurologic: no confusion Physical Exam Constitutional: + overweight; not in distress Eyes: PERRL, conjunctivae normal, anicteric sclerae ENMT: external ear and nose normal, oropharynx normal Neck: trachea midline, no thyromegaly Respiratory: normal respiratory effort, lungs clear to auscultation Cardiovascular: Rate/Rhythm: regular rate and regular rhythm Extremities: + edema (1+ B LE swelling) Gastrointestinal (Abdomen): normal bowel sounds, soft, nontender, no hepatosplenomegaly Musculoskeletal: Extremities: no cyanosis Skin: no rashes, warm and dry Neurologic: awake; not confused Results & Data ([facility]) Vital Signs (Past 12 Hours) Vital Signs Temp Pulse Pulse Resp BP Pulse Ox 03/20/21 07:21 36.7 C 60 19 136/72 03/20/21 05:37 36.2 C L 56 L 18 133/66 98 03/20/21 03:27 59 L 96 03/19/21 23:42 36.6 C 55 L 18 126/64 98 Laboratory Tests 03/20/21 03/20/21 06:33 06:33 WBC 8.64 Hgb 9.5 L Hct 29.9 L Plt Count 154 Sodium 137 Potassium 3.3 L Chloride 98 Carbon Dioxide 28 BUN 60 H Creatinine 2.62 H Glucose 208 H PG Care Time/CCT Total # of Minutes Spent Total Time Spent with Patient: Total time spent is greater than 50% in coordination of care (as documented) at patient's floor/unit and/or counseling patient: Coding Level of Care Code 99201 Subseq Hosp Care Lvl 3 Diagnoses CKD (chronic kidney disease), stage IV N18.4 Essential hypertension I10 Acute on chronic heart failure with preserved ejection fraction (HFpEF) I50.33 Chronic anemia D64.9 Secondary hyperparathyroidism of renal origin N25.81
[2021-03-20] MEDS: BUMETANIDE 1 MG TAB PO SCH ×2 (10:08→16:57)
[2021-03-20] MEDS ORDERED: INSULIN GLARGINE SOLOSTAR 100 UNITS/ML 3 ML PEN SC ONE (13:00)
--- NOTE | 2021-03-20 13:00 | Pharmacy Report ---
Pharmacy Glycemic Short Note 2 - Date of Service March 20, 2021 - Glycemic Short BSG Results (Last 24 hours): 03/19/21 03/19/21 03/20/21 15:56 20:49 06:33 Glucose 208 H POC Glucose 154 H 183 H 03/20/21 03/20/21 07:22 11:33 Glucose POC Glucose 211 H 226 H OUTPATIENT ANTIDIABETIC REGIMEN: * Insulin glargine (Basaglar) 45 units SQ BID * NovoLog 3-6 units SQ with meals * A1c = 6.5% on 03/08/21 ASSESSMENT: 03/20/21: * Pt has been hyperglycemic past ~24 hours. Suspect that as patient's appetite begins to improve, her insulin requirements will continue to rise. * Additional Lantus given today, as fasting BSG was elevated this morning (208, 211). * Novolog parameters have also been tightened to provide additional control throughout the day. 03/18 * Patient's blood sugars well controlled except for one episode of hypoglycemia yesterday prior to dinner, likely due to excess correctional insulin * loosen CF * Fasting blood sugar 128mg/dl - continue Lantus orders (with reduced HS dose as adjusted yesterday) 03/16 * Pt has received 36 units of insulin over the past 24hrs * 27 units of basal with Lantus * 9 units of bolus with NovoLog (low bolus insulin dosing secondary to NPO y ester AM) * BSGs [phone] mg/dl * Was not able to get Lexiscan stress test yesterday - scheduled for today. Pt NPO this AM. Will reduce Lantus again to 12 units for NPO * BSGs slightly elevated at dinner and HS despite NPO at breakfast and lunch. Most likely d/t reduced Lantus for NPO. Pt had only received 10 units of Lantus the night prior. Last night pt received 15 units of Lantus so appropriate to decrease dose for NPO today. Pt probably could have tolerated full AM Lantus dose of 15 units yesterday morning but BSGs still reasonable. 03/08 * 75yo T2DM female with excellent outpatient control per recent A1c * Pt with LOW BSG today secondary to too much basal insulin on board * Outpatient regimen is heavily weighted towards basal insulin (basal insulin = 90 units; bolus insulin max 18 units) indicating that basal insulin is covering some prandial requirements. * Pt with LOW BSG when outpatient basal insulin continued with NPO status * Will adjust/decrease insulin regimen for NPO and continue to titrate based on BSG trends. PLAN FOR INPATIENT GLYCEMIC CONTROL: * Basal insulin * Lantus 15 units SC qAM * Lantus 10 units SC x1 dose at 1300 * Bolus insulin * NovoLog per scale ACHS or Q6hrs while NPO * Goal Range: Low 110 mg/dL - High 140 mg/dL * Correction Factor: 30 mg/dL/unit * Nutritional / Prandial insulin per carb ratio of 1 unit per 7 grams CHO consumed PLAN FOR DISCHARGE: * HbA1c of 6.5% suggests excellent outpatient glycemic control * Lantus dose may need to be adjusted based on appetite at time of discharge * Home dose of Lantus 45 units SC BID will likely need to be reduced * At this point, Lantus 15 units SQ AM and 5 units HS recommended * Novolog 3-6 units SC with meals seems appropriate at this time * Will continue to follow and adjust discharge recs as necessary
--- NOTE | 2021-03-20 16:12 | Heart Failure Consultation ---
Date of Consultation March 20, 2021 Assessment & Plan (1) Acute on chronic heart failure with preserved ejection fraction (HFpEF): We discussed the nature of heart failure and the goals of the program. Patient is agreeable to participation. She would likely benefit from more intensive volume management. She states her diuretics are typically managed by Dr. Sanchez. We will continue to work in collaboration with the nephrology team as an outpatient. Patient is responding well to diuretics. Kidney function and electrolytes are stable. Continue Bumex 2 mg po BID plus Metolazone 2.5 mg daily. Continue potassium supplementation at 20 meq BID. Patient is familiar with daily standings weights. She believes her dry weight to be in the 220s. She was advised to notify the HF program of 2+ lb weight gain overnight or 5 + lb weight gain in 1 week. Low sodium diet recommended, less than 2,000 mg daily. Patient would benefit from ongoing discussion and education. Continue to monitor I&Os while hospitalized. Family has concerns about the patient's safely while continuing to live independently. 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 There is questionable medication adherence. Referral is pending to [facility]. Disposition: Recommend close outpatient follow up with the heart failure program. This has been arranged for 03/27 at 3:30pm. Discharge instructions updated. History of Present Illness Attending Physician: Yosef Ibanez 75-year-old woman with history of DM, HTN, CKD IV, COPD, chronic diastolic CHF, and paroxysmal atrial fibrillation (warfarin/metoprolol) as well as multiple cardiovascular risk factors but no documented coronary disease. She does actively follow with cardiology. Recent cardiac studies: 1. 03/08/21 Echo: LV systolic function is normal. EF 55-60%. No RWMA. Mild concentric LVH. Mild MR. Mild TR. Patient presented 03/07/21 with worsening shortness of breath. CXR demonstrated pulmonary vascular congestion. ProBNP 1989. Echocardiogram with preserved EF. She was initiated on Bumex 4 mg IV BID. Nephrology also consulted. Cardiac Lexiscan negative for ischemia. She was converted back to PO Bumex on 03/14/21. Metolazone added 03/16/21. She's net negative 13 L for her admission. Weight is trending down- 255 --->236 lb. Patient has been referred to the heart failure program by the primary service. She is sitting at the bedside. She reports she is feeling significantly improved from pre-admission. She denies shortness of breath. She is tolerating room air. She continues to have chronic lower extremity edema. She denies orthopnea or PND. She denies chest pain, lightheadedness, or palpitations. SocHx: Rainer lives alone in [place]. She has 2 sisters who help with her meds and transportation to appointments. She has one child who is in [place]. She uses [employer] Whe[employer] 5 days a week. She denies alcohol or tobacco use. Allergies Allergy/AdvReac Type Severity Reaction Status Date / Time clarithromycin Allergy Intermediate RASH AND Verified 03/07/21 18:56 ITCHING Home Medications Medication Instructions Recorded Confirmed Type nitroglycerin [Nitrostat] 0.4 mg UT UD PRN #0 09/28/09 03/07/21 History cranberry fruit concentrate 250 mg 500 mg PO QDL tab 08/20/18 03/07/21 History chewable tablet docusate sodium 100 mg capsule 100 mg PO QID cap 05/10/19 03/07/21 History fexofenadine 180 mg tablet 180 mg PO QAM tab 05/10/19 03/07/21 History lancets 33 gauge #100 ea 05/10/19 01/26/21 History azelastine 137 mcg (0.1 %) nasal 2 sprays INTNAS BID #90 ml 10/28/19 03/07/21 Rx spray aerosol terconazole 0.4 % vaginal cream 1 appl PV DAILY PRN #45 gm 04/26/20 03/07/21 Rx blood sugar diagnostic #400 ea 07/07/20 01/26/21 Rx pantoprazole 40 mg tablet,delayed 40 mg PO DAILY #90 tab 08/15/20 03/07/21 Rx release metoclopramide HCl 10 mg tablet 10 mg PO QPM #90 tab 09/26/20 03/07/21 Rx metoprolol tartrate 25 mg tablet 25 mg PO QAM #90 tab 10/03/20 03/07/21 Rx fenofibric acid (choline) 135 mg 135 mg PO QAM #90 cap 10/26/20 03/07/21 Rx capsule,delayed release duloxetine 30 mg capsule,delayed 30 mg PO QAM #90 cap 12/06/20 03/07/21 Rx release desonide 0.05 % topical cream 1 applic TOPICAL BID #60 g 12/18/20 03/07/21 Rx allopurinol 100 mg tablet 100 mg PO QAM #90 tab 12/21/20 03/07/21 Rx bumetanide 2 mg tablet 3 mg PO BID 90 Days #180 tab 01/08/21 03/07/21 Rx calcitriol 0.5 mcg capsule 0.5 mcg PO DAILY #90 cap 01/08/21 03/07/21 Rx insulin aspart U-100 100 unit/mL 3 - 6 unit SUBCUT ACHS ml 01/22/21 03/07/21 History (3 mL) subcutaneous pen isosorbide mononitrate 30 mg 30 mg PO TID #270 tab 01/25/21 03/07/21 Rx tablet,extended release 24 hr pen needle, diabetic 31 gauge x #500 ea 01/29/21 Rx 3/16" Xopenex HFA 45 mcg/actuation 1 - 2 inh INH Q4H PRN #15 g NS 02/07/21 03/07/21 Rx aerosol inhaler insulin glargine 100 unit/mL (3 45 unit SC BID ml 02/20/21 03/07/21 History mL) subcutaneous pen ezetimibe 10 mg-simvastatin 40 mg 1 tab PO HS #90 tab 02/26/21 03/07/21 Rx tablet clonazepam 0.5 mg tablet 0.5 mg PO HS #30 tab 03/01/21 03/07/21 Rx levothyroxine 88 mcg tablet 88 mcg PO DAILY #30 tab 03/05/21 03/07/21 Rx ergocalciferol (vitamin D2) 1,250 50,000 unit PO Q14D #6 cap 03/06/21 03/07/21 Rx mcg (50,000 unit) capsule betamethasone dipropionate 1 applic TOPICAL Q OTHER DAY PRN 03/07/21 03/07/21 History warfarin 2.5 mg PO UD 03/07/21 03/14/21 History potassium chloride 20 mEq 20 meq PO DAILY #90 tab 03/13/21 Rx tablet,extended release(part/cryst) ipratropium 0.5 mg-albuterol 3 mg 3 ml INHALATION QID PRN #90 ml 03/19/21 Rx (2.5 mg base)/3 mL nebulization soln Patient History Medical History (Updated 03/21/21 @ 07:55 by Valerie Hearn PA-C) Acute osteomyelitis Cataract CHF (congestive heart failure) Chronic anemia Constipation Decubitus ulcer Diabetic foot ulcer Encounter for health maintenance examination Gastric ulcer Gastroparesis Gout, joint Herpes zoster Hiatal hernia Influenza A Pneumonia Secondary hyperparathyroidism of renal origin Stasis ulcer Stenosis of trachea Vaginitis Surgical History H/O adenoidectomy H/O hand surgery H/O knee surgery H/O: hysterectomy Hx of salpingo-oophorectomy, bilateral S/P tonsillectomy Family History Father Emphysema, unspecified Sister Uterine cancer Ovarian cancer Other Liver cancer Denies family history of Colon cancer Pancreatic cancer Prostate cancer Myocardial infarction Breast cancer Bleeding disorder Colorectal cancer Social History Smoking Status: Never smoker Second Hand Exposure: No; Hx Alcohol Use: No Hx Substance Use: No Preferred Language: Malawian Communication Ability: Effective Visual Impairment: Limited Hearing Ability: Normal Regulator Pin Inserter Required: No Beliefs That Will Affect Care: None marital status: Single Current Living Situation: Alone current occupational status: retired How many Children do You have: 0 Feels Safe at Home: Yes Childhood Exposure to Second-Hand Smoke: No Dental Care, Regularly: Yes Physical Activity Frequency: Does not Exercise Seatbelt Use: always Sunscreen Use: No Do you think of yourself as: straight/heterosexual Assistive Devices: CPAP, Denture - Upper and Walker Physical Exam Physical Exam: Constitutional: Alert, oriented, in no acute distress HEENT: Head is atraumatic and normocephalic. EOMs intact. Sclera anicteric. Face is symmetric. No perioral cyanosis. Mucous membranes moist. Neck: Supple, no JVD Pulmonary: Normal respiratory effort, clear to auscultation bilaterally with slightly decreased breath sounds at the bases. Cardiac: Regular rate and rhythm. Normal S1 and S2, no gallops, no rubs, no murmurs Extremities: 2+ radial pulses bilaterally. 2+ posterior tibialis pulses bilaterally. 1-2+ pitting edema. No cyanosis or clubbing. Abdomen: Normal bowel sounds, soft, non-tender, no abdominal mass palpated Skin: Normal skin color, turgor, and pigmentation, no rash, no skin lesions Neurological: Patient is awake, alert, and oriented. Pleasant and cooperative. Answers questions appropriately. Speech is clear. Normal movement in all 4 extremities. Results & Data ([facility]) Vital Signs (Past 12 Hours) Vital Signs Temp Pulse Pulse Pulse Resp BP BP 03/20/21 11:42 98.4 F 53 L 18 129/65 03/20/21 07:21 98.1 F 60 19 136/72 03/20/21 05:37 97.2 F L 56 L 18 133/66 03/20/21 03:27 59 L Pulse Ox 03/20/21 11:42 95 03/20/21 07:21 03/20/21 05:37 98 03/20/21 03:27 96 Coding Level of Care Code 28651 Initial Inpt Care Lvl 3 Diagnoses Acute on chronic heart failure with preserved ejection fraction (HFpEF) I50.33
[2021-03-20] MEDS: WARFARIN SOD 2 MG TAB PO SCH (16:57)
[2021-03-20] MEDS: METOCLOPRAMIDE HCL 10 MG TABLET PO SCH (20:44)
[2021-03-20] MEDS: clonazePAM 0.5 MG TAB PO SCH (20:44)
[2021-03-20] MEDS: EZETIMIBE/SIMVASTATIN 10/40MG 1 TAB TAB PO SCH (20:46)
--- NOTE | 2021-03-20 21:42 | Hospitalist Progress Note ---
Date of Service March 20, 2021 Assessment & Plan (1) Acute on chronic heart failure with preserved ejection fraction (HFpEF): Nice drop in weight overnight with addition of zaroxylyn 2.5mg qam prior to AM bumex. Creatinine tolerated such - in fact, Cr actually improved slightly to 2.3 today. Continue the AM zaroxylyn 2.5mg daily before AM bumex. Continue Bumex 4 mg PO twice daily. BMP daily. Continue BB. Not FELIX or ARB candidate due to CKD. Daily weights - standing scale only. Continues to improve with above medications. Appears ready for discharge. Appreciate input from CHF clinic. (2) Nonsustained ventricular tachycardia: 11-beat run 03/14/21 (morning) while exercising/working with PT. She is a poor historian but did seem to have had symptoms from this during the PT. Could be aberrancy but less likely. The NSVT, coupled with recurrent episodes of exertional chest heaviness/pain over the last 6-12 months, along with numerous CAD risk factors -- were all concerning for ischemia. Lexiscan nuclear stress test NEGATIVE for ischemia. Cont beta sharon. K/mag wnl. (3) Chest heaviness: multiple etiologies possible but CAD was top concern. episodes occur usually with exertion. also, chronic pulm edema, asthma, musculoskeletal all can contribute. Lexiscan nuclear stress test yesterday NEGATIVE. When she achieves euvolemia and if chest pain/heaviness persists - cath?? But she has poor renal function and she is NOT a good candidate for such. Simply monitor for now. (4) CKD (chronic kidney disease), stage IV: Baseline Cr 1.9 to-2.6. Creatinine 2.3 today. Continue BMP daily. Appreciate nephrology consultation/recs. (5) Iron deficiency anemia: completed 5-day course of daily venofer. CBC today stable. no overt GI bleeding. fecal occult negative. (6) Paroxysmal atrial fibrillation: NSR on tele. Cont BB. INR therapeutic again today with use of coumadin 2mg/day. Had been supratherapeutic at admission on 2.5mg/day of coumadin. INR qam. (7) Stenosis of trachea: Tracheal stenosis/subglottic stenosis- Status post recent procedure at [facility] for such. Follows with Dr Mondragon locally. (8) SGS (subglottic stenosis): See above (9) Diabetes type 2, uncontrolled: Hemoglobin A1c 8.8%. Continue novolog with lantus. BSGs controlled. Had lows today - Pharmacy managing - they will make adjustments. (10) Asthma: controlled/no exacerbation at this time cont albuterol qid recent wheezing I suspect was pulmonary edema related (11) Depression: Continue duloxetine 30 mg daily (12) Essential hypertension: Controlled with current medications. (13) Obstructive sleep apnea of adult: CPAP at bedtime. 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 see "history" section from that progress note for details on that conversation. I fully agree with Federica that Ms Baer is truly not in a position to be living independently given her numerous medical issues, difficulty carrying out ADLs, intellectual disability, etc. best scenario - SNF - at least short-term, could be long-term. If she rehabs well enough perhaps she could get to a point that PCH/assisted living would be feasible. social work aware - SNF referrals to be made (21) Intellectual disability: mild (22) DVT prophylaxis: coumadin updated pt's sister again today, 03/17/21 Admission and Anticipated Discharge Date Admission Date: March 07, 2021 Subjective 75 yo yo female reports feeling better. She has no new complaints today. Review of Systems Review of Systems: All systems reviewed & are unremarkable except as noted in HPI & below Physical Exam Physical Exam: Constitutional: + morbidly obese; no acute distress and no altered mental status ENMT: external ear and nose normal, oropharynx normal Respiratory: no respiratory distress Auscultation: + diminished lung sounds (bases) and + rales (bases - minimal - best she has sounded all week); no wheezes Cardiovascular: Rate/Rhythm: regular rate and regular rhythm Heart Sounds: normal S1 and normal S2 Vessels: posterior tibial pulses present and dorsalis pedis pulses present; no JVD Extremities: + edema (2+ b/l -- but maybe slightly less than pr) Gastrointestinal (Abdomen): normal bowel sounds, soft, nontender, no he patosplenomegaly Psychiatric: A+Ox3, euthymic affect Results & Data Results & Data ([facility]) Vital Signs (Past 12 Hours) Vital Signs Temp Pulse Pulse Pulse Resp BP BP 03/20/21 20:13 36.8 C 58 L 18 147/67 H 03/20/21 18:24 52 L 03/20/21 16:05 37.0 C 54 L 18 120/65 03/20/21 11:42 36.9 C 53 L 18 129/65 Pulse Ox 03/20/21 20:13 95 03/20/21 18:24 03/20/21 16:05 94 03/20/21 11:42 95 PG Care Time/CCT Total # of Minutes Spent Total Time Spent with Patient: Total time spent is greater than 50% in coordination of care (as documented) at patient's floor/unit and/or counseling patient: Coding Level of Care Code 32750 Subseq Hosp Care Lvl 2 Diagnoses Acute on chronic heart failure with preserved ejection fraction (HFpEF) I50.33 Nonsustained ventricular tachycardia I47.2 Chest heaviness R07.89 CKD (chronic kidney disease), stage IV N18.4 Iron deficiency anemia D50.8 Iron deficiency anemia type: other iron deficiency Paroxysmal atrial fibrillation I48.0 Stenosis of trachea J39.8 SGS (subglottic stenosis) J38.6 Diabetes type 2, uncontrolled E11.65 Glycemic state: with hyperglycemia Asthma J45.40 Asthma complication type: uncomplicated Asthma persistence: persistent Asthma severity: moderate Depression F32.9 Active/Remission status: remission status unspecified Depression Type: major depressive disorder Major depression recurrence: unspecified whether recurrent Essential hypertension I10 Obstructive sleep apnea of adult G47.33 GERD without esophagitis K21.9 Hypothyroidism E03.9 Hypothyroidism type: unspecified Dyslipidemia E78.5 Oropharyngeal dysphagia R13.12 Elevated liver transaminase level R74.01 correction (current) use of anticoagulants Z79.01 Discharge planning issues Z02.9 Intellectual disability F79 DVT prophylaxis Z29.9 Time Spent (min) 25 (1) Depression Active/Remission status: remission status unspecified Depression Type: major depressive disorder Major depression recurrence: unspecified whether recurrent Qualified Code(s): F32.9 - Major depressive disorder, single episode, unspecified (2) Hypothyroidism Hypothyroidism type: unspecified Qualified Code(s): E03.9 - Hypothyroidism, unspecified (3) Diabetes type 2, uncontrolled Glycemic state: with hyperglycemia Qualified Code(s): E11.65 - Type 2 diabetes mellitus with hyperglycemia (4) Iron deficiency anemia Iron deficiency anemia type: other iron deficiency Qualified Code(s): D50.8 - Other iron deficiency anemias (5) Asthma Asthma complication type: uncomplicated Asthma persistence: persistent Asthma severity: moderate Qualified Code(s): J45.40 - Moderate persistent asthma, uncomplicated
[2021-03-21] MEDS: LEVOTHYROXINE SODIUM 88 MCG TABLET PO SCH (06:29)
[2021-03-21] MEDS: FEXOFENADINE HCL 180 MG TAB PO SCH (07:54)
[2021-03-21] MEDS: allopurinoL 100 MG TAB PO SCH (07:54)
[2021-03-21] MEDS: CALCITRIOL 0.25 MCG CAPSULE PO SCH (07:54)
[2021-03-21] MEDS: metOLazone 2.5 MG TABLET PO SCH (07:54)
[2021-03-21] MEDS: DULoxetine HCL 30 MG CAP PO SCH (07:54)
[2021-03-21] MEDS: METOPROLOL TARTRATE 25 MG TAB PO SCH ×2 (07:55→21:19)
[2021-03-21] MEDS: DOCUSATE SODIUM 100 MG CAP PO SCH ×4 (07:56→21:18)
[2021-03-21] MEDS: ISOSORBIDE MONO EXTENDED REL 30 MG TABCR PO SCH ×3 (07:57→21:19)
[2021-03-21] MEDS: guaiFENesin 600 MG TABCR PO SCH ×2 (07:57→21:18)
[2021-03-21] MEDS: FENOFIBRIC ACID PO SCH (07:58)
[2021-03-21] MEDS: DICLOFENAC SOD 1% GEL 100 GM TUBE EXT SCH ×4 (07:58→21:18)
[2021-03-21] MEDS: AZELASTINE SCH ×2 (07:59→21:18)
[2021-03-21] MEDS: POTASSIUM CHLORIDE CRTAB 20 MEQ TABCR PO SCH ×2 (07:59→21:19)
[2021-03-21] MEDS: BUMETANIDE 1 MG TAB PO SCH ×2 (07:59→16:58)
[2021-03-21] MEDS: POLYETHYLENE (MIRALAX) 17 GM PACK PO SCH ×2 (08:00→21:20)
[2021-03-21] MEDS: PANTOprazole 40 MG TAB PO SCH (08:00)
[2021-03-21] MEDS: INSULIN ASPART 100 UNITS/ML 3 ML PEN SC SCH ×4 (08:35→21:17)
[2021-03-21] MEDS ORDERED: INSULIN GLARGINE SOLOSTAR 100 UNITS/ML 3 ML PEN SC SCH (09:00)
[2021-03-21 09:27] LABS: Hematocrit (blood only) 33.2 % (37-47); Hemoglobin 10.4 g/dL (12.0-16.0); Mean Corpuscular Hemoglobin 27.3 pg (25-34); Mean Corpuscular Hgb Conc 31.3 g/dL (32-36); Mean Corpuscular Volume 87.1 fL (80-100); Mean Platelet Volume 9.6 fL (7.4-10.4); Platelet Count 148 K/uL (130-400); RDW Coefficient of Variation 18.8 % (11.5-14.5); RDW Standard Deviation 56.8 fL (36.4-46.3); Red Blood Count 3.81 M/uL (4.2-5.4); White Blood Count 7.37 K/uL (4.8-10.8)
--- NOTE | 2021-03-21 09:36 | Nephrology Progress Note ---
Date of Service March 21, 2021 Assessment & Plan (1) CKD (chronic kidney disease), stage IV: * Kidney has been relatively stable. Baseline Cr 2.4 * LE edema is mildly improved. I&O's matched last 24 - 48 hours * Increase Bumex to 3 mg po BID (this was her outpatient dose prior to hospitalization) * Continue Zaroxolyn 2.5 mg daily * Increase KCl to 20 mEq po BID * Monitor PRP * Awaiting transfer to SNF * If transfer is anticipated, please have patient follow up w/ Dr. Sanchez in 7 - 14 days ([phone]) (2) Essential hypertension: * BP acceptable. Volume status improving * On Imdur, Metoprolol (3) Acute on chronic heart failure with preserved ejection fraction (HFpEF): * Weight is down 9 kg since admission (116kg --> 107 kg) * Goal is to maintain net negative fluid balance >1 L/d. * Nuclear stress test was negative for inducible ischemia, LVEF 57% (4) Chronic anemia: * Completed 2g infusion of IV Venofer * Epogen 10,000 units SQ x1 given 03/17/21 * Hgb is trending up (5) Secondary hyperparathyroidism of renal origin: * On Calcitriol and Ergocalciferol * Monitor serum Ca Admission and Anticipated Discharge Date Admission Date: March 07, 2021 Subjective Mrs. Baer was seen & examined in her hospital room this morning. She reports that she is breathing comfortably on room air. She c/o persistent LE swelling Review of Systems Constitutional: no fever Eyes: no problem reported Ear, Nose, Mouth, Throat: no problem reported Respiratory: no dyspnea Cardiovascular: + edema; no chest pain and no palpitations Gastrointestinal: no abdominal pain, no nausea and no diarrhea/loose stools Genitourinary: no dysuria and no hematuria Integumentary: no rash Neurologic: no confusion Physical Exam Constitutional: + overweight; not in distress Eyes: PERRL, conjunctivae normal, anicteric sclerae ENMT: external ear and nose normal, oropharynx normal Neck: trachea midline, no thyromegaly Respiratory: normal respiratory effort, lungs clear to auscultation Cardiovascular: RRR, no murmur, no edema Rate/Rhythm: regular rate and regular rhythm Extremities: + edema (1+ B LE swelling) Gastrointestinal (Abdomen): normal bowel sounds, soft, nontender, no hepatosplenomegaly Musculoskeletal: Extremities: no cyanosis Skin: no rashes, warm and dry Neurologic: awake; not confused Results & Data ([facility]) Vital Signs (Past 12 Hours) Vital Signs Temp Pulse Pulse Resp BP BP Pulse Ox 03/21/21 08:02 37.0 C 66 18 134/74 98 03/21/21 03:40 58 L 18 96 03/21/21 03:18 36.5 C 65 18 128/61 91 03/20/21 23:56 36.8 C 52 L 18 149/67 H 99 03/20/21 22:33 56 L 12 98 Laboratory Tests 03/21/21 09:14 Sodium Pending Potassium Pending Chloride Pending Carbon Dioxide Pending BUN Pending Creatinine Pending Laboratory Tests 03/21/21 09:14 WBC 7.37 Hgb 10.4 L Hct 33.2 L Plt Count 148 PG Care Time/CCT Total # of Minutes Spent Total Time Spent with Patient: Total time spent is greater than 50% in coordination of care (as documented) at patient's floor/unit and/or counseling patient: Coding Level of Care Code 54761 Subseq Hosp Care Lvl 3 Diagnoses CKD (chronic kidney disease), stage IV N18.4 Essential hypertension I10 Acute on chronic heart failure with preserved ejection fraction (HFpEF) I50.33 Chronic anemia D64.9 Secondary hyperparathyroidism of renal origin N25.81
[2021-03-21 10:04] LABS: BUN Creatinine Ratio 25.6 (10-20); Calcium 9.7 mg/dl (8.5-10.1); Creatinine Clr Calc Pharmacy 19.7 ml/min; Est GFR (African American) 18.9 ml/min; Est GFR (Non-African American) 16.3 ml/min; Potassium 3.4 mmol/L (3.5-5.1)
[2021-03-21 10:20] LABS: Beta-Hydroxybutyrate 2.7 mg/dl (0.2-2.81)
--- NOTE | 2021-03-21 11:36 | Heart Failure Progress Note ---
Date of Service March 21, 2021 Assessment & Plan (1) Acute on chronic heart failure with preserved ejection fraction (HFpEF): We discussed the nature of heart failure and the goals of the program. Patient is agreeable to participation. She would likely benefit from more intensive volume management. She states her diuretics are typically managed by Dr. Sanchez. We will continue to work in collaboration with the nephrology team as an outpatient. Patient is responding well to diuretics. Kidney function and electrolytes are stable. Bumex increased to 3 mg po BID plus Metolazone 2.5 mg daily per nephrology. This was her previous home dose. Continue potassium supplementation at 20 meq BID. Patient is familiar with daily standings weights. She believes her dry weight to be in the 220s. She was advised to notify the HF program of 2+ lb weight gain overnight or 5 + lb weight gain in 1 week. Low sodium diet recommended, less than 2,000 mg daily. Patient would benefit from ongoing discussion and education. Continue to monitor I&Os while hospitalized. Discussed additional reasons to notify the HF program. Contact information provided. Family has concerns about the patient's safely while continuing to live independently. She requires assistance with most of her waste chopper and medications. There is questionable medication adherence. Referral is pending to [facility]. Disposition: Recommend close outpatient follow up with the heart failure program. This has been arranged for 03/27 at 3:30pm. Discharge instructions updated. Admission and Anticipated Discharge Date Admission Date: March 07, 2021 Subjective Patient is feeling well. She has no new complaints or concerns today. She feels her breathing has improved. SHe continues to have some chronic lower extremity edema. She slept well, denies PND. Chronic 3 pillow orthopnea. She denies chest pain, palpitations, lightheadedness. Weight today is 235 lb. Kidney function is stable (baseline creatinine 2.[address] Mckay). Potassium is low normal. Physical Exam Physical Exam: Constitutional: Alert, oriented, in no acute distress HEENT: Head is atraumatic and normocephalic. EOMs intact. Sclera anicteric. Face is symmetric. No perioral cyanosis. Mucous membranes moist. Neck: Supple, no JVD Pulmonary: Normal respiratory effort, clear to auscultation bilaterally with slightly decreased breath sounds at the bases. Cardiac: Regular rate and rhythm. Normal S1 and S2, no gallops, no rubs, no murmurs Extremities: 2+ radial pulses bilaterally. 2+ posterior tibialis pulses bilaterally. 1+ pitting edema. No cyanosis or clubbing. Abdomen: Normal bowel sounds, soft, non-tender, no abdominal mass palpated Skin: Normal skin color, turgor, and pigmentation, no rash, no skin lesions Neurological: Patient is awake, alert, and oriented. Pleasant and cooperative. Answers questions appropriately. Speech is clear. Normal movement in all 4 extremities. Results & Data ([facility]) Vital Signs (Past 12 Hours) Vital Signs Temp Pulse Pulse Resp BP BP Pulse Ox 03/21/21 09:30 45 L 03/21/21 08:02 98.6 F 66 18 134/74 98 03/21/21 03:40 58 L 18 96 03/21/21 03:18 97.7 F 65 18 128/61 91 03/20/21 23:56 98.2 F 52 L 18 149/67 H 99 PG Care Time/CCT Total # of Minutes Spent Total Time Spent with Patient: Total time spent is greater than 50% in coordination of care (as documented) at patient's floor/unit and/or counseling patient: Coding Level of Care Code 04338 Subseq Hosp Care Lvl 3 Diagnoses Acute on chronic heart failure with preserved ejection fraction (HFpEF) I50.33
--- NOTE | 2021-03-21 14:37 | Pharmacy Report ---
Pharmacy Glycemic Short Note 2 - Date of Service March 21, 2021 - Glycemic Short BSG Results (Last 24 hours): 03/20/21 03/20/21 03/21/21 16:24 20:24 07:29 Glucose POC Glucose 117 H 159 H 202 H 03/21/21 03/21/21 09:14 11:35 Glucose 324 H* POC Glucose 299 H OUTPATIENT ANTIDIABETIC REGIMEN: * Insulin glargine (Basaglar) 45 units SQ BID * NovoLog 3-6 units SQ with meals * A1c = 6.5% on 03/08/21 ASSESSMENT: 03/21 * Patient received total of 46 units of insulin yesterday, PO intake continues to rise * Fasting BSG 202 mg/dL - plan to titrate up on basal insulin today, will give 25 units this AM - scale 5-10 units with dinner ordered * Plan to continue same CF/CR for now 03/20/21: * Pt has been hyperglycemic past ~24 hours. Suspect that as patient's appetite begins to improve, her insulin requirements will continue to rise. * Additional Lantus given today, as fasting BSG was elevated this morning (208, 211). * Novolog parameters have also been tightened to provide additional control throughout the day. 03/18 * Patient's blood sugars well controlled except for one episode of hypoglycemia yesterday prior to dinner, likely due to excess correctional insulin * loosen CF * Fasting blood sugar 128mg/dl - continue Lantus orders (with reduced HS dose as adjusted yesterday) 03/16 * Pt has received 36 units of insulin over the past 24hrs * 27 units of basal with Lantus * 9 units of bolus with NovoLog (low bolus insulin dosing secondary to NPO yesterday AM) * BSGs [phone] mg/dl * Was not able to get Lexiscan stress test yesterday - scheduled for today. Pt NPO this AM. Will reduce Lantus again to 12 units for NPO * BSGs slightly elevated at dinner and HS despite NPO at breakfast and lunch. Most likely d/t reduced Lantus for NPO. Pt had only received 10 units of Lantus the night prior. Last night pt received 15 units of Lantus so appropriate to decrease dose for NPO today. Pt probably could have tolerated full AM Lantus dose of 15 units yesterday morning but BSGs still reasonable. 03/08 * 75yo T2DM female with excellent outpatient control per recent A1c * Pt with LOW BSG today secondary to too much basal insulin on board * Outpatient regimen is heavily weighted towards basal insulin (basal insulin = 90 units; bolus insulin max 18 units) indicating that basal insulin is covering some prandial requirements. * Pt with LOW BSG when outpatient basal insulin continued with NPO status * Will adjust/decrease insulin regimen for NPO and continue to titrate based on BSG trends. PLAN FOR INPATIENT GLYCEMIC CONTROL: * Basal insulin * Lantus 25 x 1 * Lantus 5-10 units at dinner * Bolus insulin * NovoLog per scale ACHS or Q6hrs while NPO * Goal Range: Low 110 mg/dL - High 140 mg/dL * Correction Factor: 30 mg/dL/unit * Nutritional / Prandial insulin per carb ratio of 1 unit per 7 grams CHO consumed PLAN FOR DISCHARGE: * HbA1c of 6.5% suggests excellent outpatient glycemic control * Lantus dose may need to be adjusted based on appetite at time of discharge * Will continue to follow and adjust discharge recs as necessary
[2021-03-21 15:07] LABS: BUN Creatinine Ratio 25.3 (10-20); Calcium 9.8 mg/dl (8.5-10.1); Creatinine Clr Calc Pharmacy 19.7 ml/min; Est GFR (African American) 18.9 ml/min; Est GFR (Non-African American) 16.3 ml/min; Potassium 3.5 mmol/L (3.5-5.1)
[2021-03-21] MEDS: WARFARIN SOD 2 MG TAB PO SCH (16:57)
[2021-03-21] MEDS: ACETAMINOPHEN 325 MG TAB PO PRN (21:17)
[2021-03-21] MEDS: clonazePAM 0.5 MG TAB PO SCH (21:18)
[2021-03-21] MEDS: METOCLOPRAMIDE HCL 10 MG TABLET PO SCH (21:19)
[2021-03-21] MEDS: EZETIMIBE/SIMVASTATIN 10/40MG 1 TAB TAB PO SCH (21:19)
--- NOTE | 2021-03-21 22:57 | Hospitalist Progress Note ---
Date of Service March 21, 2021 Assessment & Plan (1) Acute on chronic heart failure with preserved ejection fraction (HFpEF): Nice drop in weight overnight with addition of zaroxylyn 2.5mg qam prior to AM bumex. Creatinine tolerated such - in fact, Cr actually improved slightly to 2.3 today. Continue the AM zaroxylyn 2.5mg daily before AM bumex. Decrease Bumex 3 mg PO twice daily. BMP daily. Continue BB. Not FELIX or ARB candidate due to CKD. Daily weights - standing scale only. Patient appears to be tolerating the medication. Patient appears to be ready for discharge titrating medications. (2) Nonsustained ventricular tachycardia: 11-beat run 03/14/21 (morning) while exercising/working with PT. She is a poor historian but did seem to have had symptoms from this during the PT. Could be aberrancy but less likely. The NSVT, coupled with recurrent episodes of exertional chest heaviness/pain over the last 6-12 months, along with numerous CAD risk factors -- were all concerning for ischemia. Lexiscan nuclear stress test NEGATIVE for ischemia. Cont beta sharon. K/mag wnl. (3) Chest heaviness: multiple etiologies possible but CAD was top concern. episodes occur usually with exertion. also, chronic pulm edema, asthma, musculoskeletal all can contribute. Lexiscan nuclear stress test yesterday NEGATIVE. When she achieves euvolemia and if chest pain/heaviness persists - cath?? But she has poor renal function and she is NOT a good candidate for such. Simply monitor for now. (4) CKD (chronic kidney disease), stage IV: Baseline Cr 1.9 to-2.6. Creatinine 2.3 today. Continue BMP daily. Appreciate nephrology consultation/recs. (5) Iron deficiency anemia: completed 5-day course of daily venofer. CBC today stable. no overt GI bleeding. fecal occult negative. (6) Paroxysmal atrial fibrillation: NSR on tele. Cont BB. INR therapeutic again today with use of coumadin 2mg/day. Had been supratherapeutic at admission on 2.5mg/day of coumadin. INR qam. (7) Stenosis of trachea: Tracheal stenosis/subglottic stenosis- Status post recent procedure at [facility] for such. Follows with Dr Mondragon locally. (8) SGS (subglottic stenosis): See above (9) Diabetes type 2, uncontrolled: Hemoglobin A1c 8.8%. Continue novolog with lantus. BSGs controlled. Had lows today - Pharmacy managing - they will make adjustments. (10) Asthma: controlled/no exacerbation at this time cont albuterol qid recent wheezing I suspect was pulmonary edema related (11) Depression: Continue duloxetine 30 mg daily (12) Essential hypertension: Controlled with current medications. (13) Obstructive sleep apnea of adult: CPAP at bedtime. 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 see "history" section from that progress note for details on that conversation. I fully agree with Federica that Ms Baer is truly not in a position to be living independently given her numerous medical issues, difficulty carrying out ADLs, intellectual disability, etc. best scenario - SNF - at least short-term, could be long-term. If she rehabs well enough perhaps she could get to a point that PCH/assisted living would be feasible. social work aware - SNF referrals to be made (21) Intellectual disability: mild (22) DVT prophylaxis: coumadin updated pt's sister again today, 03/17/21 Admission and Anticipated Discharge Date Admission Date: March 07, 2021 Subjective Patient reports feeling well. She has no new complaints. Review of Systems Review of Systems: All systems reviewed & are unremarkable except as noted in HPI & below Physical Exam Physical Exam: Constitutional: + morbidly obese; no acute distress and no altered mental status ENMT: external ear and nose normal, oropharynx normal Respiratory: no respiratory distress Auscultation: + diminished lung sounds (bases) and + rales (bases - minimal - best she has sounded all week); no wheezes Cardiovascular: Rate/Rhythm: regular rate and regular rhythm Heart Sounds: normal S1 and normal S2 Vessels: posterior tibial pulses present and dorsalis pedis pulses present; no JVD Extremities: + edema (2+ b/l -- but maybe slightly less than pr) Gastrointestinal (Abdomen): normal bowel sounds, soft, nontender, no hepatosplenomegaly Psychiatric: A+Ox3, euthymic affect Results & Data Results & Data ([facility]) Vital Signs (Past 12 Hours) Vital Signs Temp Pulse Pulse Pulse Resp BP Pulse Ox 03/21/21 22:46 37.0 C 61 18 136/81 95 03/21/21 22:19 68 18 96 03/21/21 19:00 36.7 C 72 18 147/75 H 96 03/21/21 15:41 36.8 C 83 16 131/74 96 03/21/21 15:30 52 L 03/21/21 11:41 36.7 C 16 L 741 H 18 120/68 95 PG Care Time/CCT Total # of Minutes Spent Total Time Spent with Patient: Total time spent is greater than 50% in coordination of care (as documented) at patient's floor/unit and/or counseling patient: Coding Level of Care Code 92741 Subseq Hosp Care Lvl 2 Diagnoses Acute on chronic heart failure with preserved ejection fraction (HFpEF) I50.33 Nonsustained ventricular tachycardia I47.2 Chest heaviness R07.89 CKD (chronic kidney disease), stage IV N18.4 Iron deficiency anemia D50.8 Iron deficiency anemia type: other iron deficiency Paroxysmal atrial fibrillation I48.0 Stenosis of trachea J39.8 SGS (subglottic stenosis) J38.6 Diabetes type 2, uncontrolled E11.65 Glycemic state: with hyperglycemia Asthma J45.40 Asthma complication type: uncomplicated Asthma persistence: persistent Asthma severity: moderate Depression F32.9 Active/Remission status: remission status unspecified Depression Type: major depressive disorder Major depression recurrence: unspecified whether recurrent Essential hypertension I10 Obstructive sleep apnea of adult G47.33 GERD without esophagitis K21.9 Hypothyroidism E03.9 Hypothyroidism type: unspecified Dyslipidemia E78.5 Oropharyngeal dysphagia R13.12 Elevated liver transaminase level R74.01 group home (current) use of anticoagulants Z79.01 Discharge planning issues Z02.9 Intellectual disability F79 DVT prophylaxis Z29.9 Time Spent (min) 25 (1) Depression Active/Remission status: remission status unspecified Depression Type: major depressive disorder Major depression recurrence: unspecified whether recurrent Qualified Code(s): F32.9 - Major depressive disorder, single episode, unspecified (2) Hypothyroidism Hypothyroidism type: unspecified Qualified Code(s): E03.9 - Hypothyroidism, unspecified (3) Diabetes type 2, uncontrolled Glycemic state: with hyperglycemia Qualified Code(s): E11.65 - Type 2 diabetes mellitus with hyperglycemia (4) Iron deficiency anemia Iron deficiency anemia type: other iron deficiency Qualified Code(s): D50.8 - Other iron deficiency anemias (5) Asthma Asthma complication type: uncomplicated Asthma persistence: persistent Asthm a severity: moderate Qualified Code(s): J45.40 - Moderate persistent asthma, uncomplicated
[2021-03-22] MEDS: LEVOTHYROXINE SODIUM 88 MCG TABLET PO SCH (05:13)
[2021-03-22] MEDS: INSULIN ASPART 100 UNITS/ML 3 ML PEN SC SCH ×4 (08:40→20:57)
[2021-03-22] MEDS: metOLazone 2.5 MG TABLET PO SCH (08:43)
[2021-03-22] MEDS: BUMETANIDE 1 MG TAB PO SCH ×2 (08:43→16:54)
[2021-03-22] MEDS: allopurinoL 100 MG TAB PO SCH (08:43)
[2021-03-22] MEDS: DOCUSATE SODIUM 100 MG CAP PO SCH ×4 (08:44→20:46)
[2021-03-22] MEDS: DICLOFENAC SOD 1% GEL 100 GM TUBE EXT SCH ×4 (08:44→20:48)
[2021-03-22] MEDS: DULoxetine HCL 30 MG CAP PO SCH (08:44)
[2021-03-22] MEDS: CALCITRIOL 0.25 MCG CAPSULE PO SCH (08:44)
[2021-03-22] MEDS: ISOSORBIDE MONO EXTENDED REL 30 MG TABCR PO SCH ×3 (08:45→20:47)
[2021-03-22] MEDS: METOPROLOL TARTRATE 25 MG TAB PO SCH ×2 (08:45→20:47)
[2021-03-22] MEDS: guaiFENesin 600 MG TABCR PO SCH ×2 (08:45→20:47)
[2021-03-22] MEDS: FEXOFENADINE HCL 180 MG TAB PO SCH (08:45)
[2021-03-22] MEDS: FENOFIBRIC ACID PO SCH (08:47)
[2021-03-22] MEDS: AZELASTINE SCH ×2 (08:47→20:47)
[2021-03-22] MEDS: PANTOprazole 40 MG TAB PO SCH (08:48)
[2021-03-22] MEDS: POTASSIUM CHLORIDE CRTAB 20 MEQ TABCR PO SCH ×2 (08:48→20:46)
[2021-03-22] MEDS: POLYETHYLENE (MIRALAX) 17 GM PACK PO SCH ×2 (08:48→20:47)
[2021-03-22] MEDS: INSULIN GLARGINE SOLOSTAR 100 UNITS/ML 3 ML PEN SC SCH (08:49)
--- NOTE | 2021-03-22 09:51 | Nephrology Progress Note ---
Date of Service March 22, 2021 Assessment & Plan (1) CKD (chronic kidney disease), stage IV: * LE edema has nearly resolved. Creatinine has risen from baseline 2.4 to 2.7 * Will order follow up PRP this am * Reduce Bumex to 2 mg po BID * Continue Zaroxolyn 2.5 mg daily * Continue KCl 20 mEq po BID * Monitor PRP * Awaiting transfer to SNF * If transfer is anticipated, please have patient follow up w/ Dr. Sanchez in 7 - 14 days ([phone]) (2) Essential hypertension: * BP acceptable. Volume status improving * On Imdur, Metoprolol (3) Acute on chronic heart failure with preserved ejection fraction (HFpEF): * Weight is down 9 kg since admission (116kg --> 107 kg) * Goal is to maintain net negative fluid balance >1 L/d. * Nuclear stress test was negative for inducible ischemia, LVEF 57% (4) Chronic anemia: * Completed 2g infusion of IV Venofer * Epogen 10,000 units SQ x1 given 03/17/21 * Hgb is trending up (5) Secondary hyperparathyroidism of renal origin: * On Calcitriol and Ergocalciferol * Monitor serum Ca Admission and Anticipated Discharge Date Admission Date: March 07, 2021 Subjective Mrs. Baer was seen & examined in her hospital room this morning. She was sitting up in a chair this morning and notes that her leg edema is improved. She is breathing comfortably on RA. Mrs. Baer reports brisk UO but has not been notifying icu staff nurse to record the volume Review of Systems Constitutional: no fever Eyes: no problem reported Ear, Nose, Mouth, Throat: no problem reported Respiratory: no dyspnea Cardiovascular: no chest pain Gastrointestinal: no abdominal pain, no nausea and no diarrhea/loose stools Genitourinary: no dysuria and no hematuria Neurologic: no confusion Physical Exam Constitutional: + overweight; not in distress Eyes: PERRL, conjunctivae normal, anicteric sclerae ENMT: external ear and nose normal, oropharynx normal Neck: trachea midline, no thyromegaly Respiratory: normal respiratory effort, lungs clear to auscultation Cardiovascular: RRR, no murmur, no edema Rate/Rhythm: regular rate and regular rhythm Extremities: + edema (trace B LE swelling) Gastrointestinal (Abdomen): normal bowel sounds, soft, nontender, no hepatosplenomegaly Musculoskeletal: Extremities: no cyanosis Skin: no rashes, warm and dry Neurologic: awake; not confused Results & Data ([facility]) Vital Signs (Past 12 Hours) Vital Signs Temp Pulse Pulse Resp BP Pulse Ox 03/22/21 07:10 36.6 C 61 18 118/62 99 03/22/21 03:36 52 L 16 96 03/22/21 02:49 36.9 C 81 20 148/65 H 96 03/21/21 22:46 37.0 C 61 18 136/81 95 03/21/21 22:19 68 18 96 PG Care Time/CCT Total # of Minutes Spent Total Time Spent with Patient: Total time spent is greater than 50% in coordination of care (as documented) at patient's floor/unit and/or counseling patient: Coding Level of Care Code 54025 Subseq Hosp Care Lvl 3 Diagnoses CKD (chronic kidney disease), stage IV N18.4 Essential hypertension I10 Acute on chronic heart failure with preserved ejection fraction (HFpEF) I50.33 Chronic anemia D64.9 Secondary hyperparathyroidism of renal origin N25.81
--- NOTE | 2021-03-22 09:54 | Pharmacy Report ---
Pharmacy Glycemic Short Note 2 - Date of Service March 22, 2021 - Glycemic Short BSG Results (Last 24 hours): 03/21/21 03/21/21 03/21/21 09:14 11:35 14:17 Glucose 324 H* 156 H POC Glucose 299 H 03/21/21 03/21/21 03/22/21 16:27 20:46 07:07 Glucose POC Glucose 155 H 224 H 222 H OUTPATIENT ANTIDIABETIC REGIMEN: * Insulin glargine (Basaglar) 45 units SQ BID * NovoLog 3-6 units SQ with meals * A1c = 6.5% on 03/08/21 ASSESSMENT: 03/22 * Patient received total of 56 units of insulin yesterday, PO intake improving * Fasting BSG 222 mg/dL - plan to increase basal ~30% this AM to 33 units daily * Tightened CF/CR at breakfast since lunch time BSGs have been elevated 03/21 * Patient received total of 46 units of insulin yesterday, PO intake continues to rise * Fasting BSG 202 mg/dL - plan to titrate up on basal insulin today, will give 25 units this AM - scale 5-10 units with dinner ordered * Plan to continue same CF/CR for now 03/20/21: * Pt has been hyperglycemic past ~24 hours. Suspect that as patient's appetite begins to improve, her insulin requirements will continue to rise. * Additional Lantus given today, as fasting BSG was elevated this morning (208, 211). * Novolog parameters have also been tightened to provide additional control throughout the day. 03/18 * Patient's blood sugars well controlled except for one episode of hypoglycemia yesterday prior to dinner, likely due to excess correctional insulin * loosen CF * Fasting blood sugar 128mg/dl - continue Lantus orders (with reduced HS dose as adjusted yesterday) 03/16 * Pt has received 36 units of insulin over the past 24hrs * 27 units of basal with Lantus * 9 units of bolus with NovoLog (low bolus insulin dosing secondary to NPO yesterday AM) * BSGs [id number] mg/dl * Was not able to get Lexiscan stress test yesterday - scheduled for today. Pt NPO this AM. Will reduce Lantus again to 12 units for NPO * BSGs slightly elevated at dinner and HS despite NPO at breakfast and lunch. Most likely d/t reduced Lantus for NPO. Pt had only received 10 units of Lantus the night prior. Last night pt received 15 units of Lantus so appropriate to decrease dose for NPO today. Pt probably could have tolerated full AM Lantus dose of 15 units yesterday morning but BSGs still reasonable. 03/08 * 75yo T2DM female with excellent outpatient control per recent A1c * Pt with LOW BSG today secondary to too much basal insulin on board * Outpatient regimen is heavily weighted towards basal insulin (basal insulin = 90 units; bolus insulin max 18 units) indicating that basal insulin is covering some prandial requirements. * Pt with LOW BSG when outpatient basal insulin continued with NPO status * Will adjust/decrease insulin regimen for NPO and continue to titrate based on BSG trends. PLAN FOR INPATIENT GLYCEMIC CONTROL: * Basal insulin - increase * Lantus 33 units daily * Bolus insulin * NovoLog per scale ACHS or Q6hrs while NPO * Goal Range: Low 110 mg/dL - High 140 mg/dL * Correction Factor: 30 mg/dL/unit * Nutritional / Prandial insulin per carb ratio of 1 unit per 7 grams CHO consumed PLAN FOR DISCHARGE: * HbA1c of 6.5% suggests excellent outpatient glycemic control * Lantus dose may need to be adjusted based on appetite at time of discharge. Requiring about half of outpatient insulin dose during this admission * Will continue to follow and adjust discharge recs as necessary
[2021-03-22 11:02] LABS: BUN Creatinine Ratio 23.8 (10-20); Calcium 9.1 mg/dl (8.5-10.1); Creatinine Clr Calc Pharmacy 19.3 ml/min; Est GFR (African American) 19.1 ml/min; Est GFR (Non-African American) 16.5 ml/min; Potassium 3.1 mmol/L (3.5-5.1)
[2021-03-22 11:42] LABS: INR 1.9 (0.9-1.1); Prothrombin Time 18.4 Seconds (9.0-12.0)
[2021-03-22] MEDS: WARFARIN SOD 2 MG TAB PO SCH (16:53)
[2021-03-22] MEDS: clonazePAM 0.5 MG TAB PO SCH (20:46)
[2021-03-22] MEDS: EZETIMIBE/SIMVASTATIN 10/40MG 1 TAB TAB PO SCH (20:47)
[2021-03-22] MEDS: METOCLOPRAMIDE HCL 10 MG TABLET PO SCH (20:48)
--- NOTE | 2021-03-22 22:51 | Hospitalist Progress Note ---
Date of Service March 22, 2021 Assessment & Plan (1) Acute on chronic heart failure with preserved ejection fraction (HFpEF): Nice drop in weight overnight with addition of zaroxylyn 2.5mg qam prior to AM bumex. Creatinine tolerated such - in fact, Cr actually improved slightly to 2.3 today. Continue the AM zaroxylyn 2.5mg daily before AM bumex. Decrease Bumex to 2 mg PO twice daily. BMP daily. Continue BB. Not FELIX or ARB candidate due to CKD. Daily weights - standing scale only. Patient appears to be tolerating the medication. Patient appears to be ready for discharge Discharge on Friday. (2) Nonsustained ventricular tachycardia: 11-beat run 03/14/21 (morning) while exercising/working with PT. She is a poor historian but did seem to have had symptoms from this during the PT. Could be aberrancy but less likely. The NSVT, coupled with recurrent episodes of exertional chest heaviness/pain over the last 6-12 months, along with numerous CAD risk factors -- were all concerning for ischemia. Lexiscan nuclear stress test NEGATIVE for ischemia. Cont beta sharon. K/mag wnl. (3) Chest heaviness: multiple etiologies possible but CAD was top concern. episodes occur usually with exertion. also, chronic pulm edema, asthma, musculoskeletal all can contribute. Lexiscan nuclear stress test yesterday NEGATIVE. When she achieves euvolemia and if chest pain/heaviness persists - cath?? But she has poor renal function and she is NOT a good candidate for such. Simply monitor for now. (4) CKD (chronic kidney disease), stage IV: Baseline Cr 1.9 to-2.6. Creatinine 2.3 today. Continue BMP daily. Appreciate nephrology consultation/recs. (5) Iron deficiency anemia: completed 5-day course of daily venofer. CBC today stable. no overt GI bleeding. fecal occult negative. (6) Paroxysmal atrial fibrillation: NSR on tele. Cont BB. INR at 1.9, will repeat tomorrow. (7) Stenosis of trachea: Tracheal stenosis/subglottic stenosis- Status post recent procedure at [facility] for such. Follows with Dr Mondragon locally. (8) SGS (subglottic stenosis): See above (9) Diabetes type 2, uncontrolled: Hemoglobin A1c 8.8%. Continue novolog with lantus. BSGs controlled. Had lows today - Pharmacy managing - they will make adjustments. (10) Asthma: controlled/no exacerbation at this time cont albuterol qid recent wheezing I suspect was pulmonary edema related (11) Depression: Continue duloxetine 30 mg daily (12) Essential hypertension: Controlled with current medications. (13) Obstructive sleep apnea of adult: CPAP at bedtime. (14) GERD without esophagitis: Continue pantoprazole and metoclopramide (15) Hypothyroidism: Continue levothyroxine 88 mcg daily TSH 7.2 early January Repeat TSH this admit wnl (16) Dyslipidemia: Continue fenofibric acid and simvastatin/Zetia (17) Oropharyngeal dysphagia: Video swallow showed minimal aspiration this admission no issues swallowing fine on minced/moist diet (18) Elevated liver transaminase level: ast and alt normalized with diuresis this suggests the elevations were 2nd to hepatic congestion from CHF (19) roasterman (current) use of anticoagulants: resumed coumadin on 03/11 INR therapeutic again today no changes to coumadin INR daily qam (20) Discharge planning issues: 03/15/21 - spoke with Federica Jah, pt's sister and POA. see "history" section from that progress note for details on that conversation. I fully agree with Federica that Ms Baer is truly not in a position to be living independently given her numerous medical issues, difficulty carrying out ADLs, intellectual disability, etc. best scenario - SNF - at least short-term, could be long-term. If she rehabs well enough perhaps she could get to a point that [facility]/assisted living would be feasible. social work aware - SNF discharge available likely on Friday. (21) Intellectual disability: mild (22) DVT prophylaxis: coumadin Admission and Anticipated Discharge Date Admission Date: March 07, 2021 Subjective Patient reports feeling back to baseline. Review of Systems Review of Systems: All systems reviewed & are unremarkable except as noted in HPI & below Physical Exam Physical Exam: Constitutional: + morbidly obese; no acute distress and no altered mental status ENMT: external ear and nose normal, oropharynx normal Respiratory: no respiratory distress Auscultation: + diminished lung sounds (bases) and + rales (bases - minimal - best she has sounded all week); no wheezes Cardiovascular: Rate/Rhythm: regular rate and regular rhythm Heart Sounds: normal S1 and normal S2 Vessels: posterior tibial pulses present and dorsalis pedis pulses present; no JVD Extremities: + edema (2+ b/l -- but maybe slightly less than pr) Gastrointestinal (Abdomen): normal bowel sounds, soft, nontender, no hepatosplenomegaly Psychiatric: A+Ox3, euthymic affect Results & Data Results & Data ([facility]) Vital Signs (Past 12 Hours) Vital Signs Temp Pulse Pulse Resp BP BP Pulse Ox 03/22/21 21:58 61 18 96 03/22/21 20:27 36.9 C 60 18 134/76 98 03/22/21 15:14 36.9 C 56 L 17 108/66 97 03/22/21 15:00 56 L 03/22/21 11:02 36.7 C 56 L 18 132/70 99 PG Care Time/CCT Total # of Minutes Spent Total Time Spent with Patient: Total time spent is greater than 50% in coordination of care (as documented) at patient's floor/unit and/or counseling patient: Coding Level of Care Code 41446 Subseq Hosp Care Lvl 2 Diagnoses Acute on chronic heart failure with preserved ejection fraction (HFpEF) I50.33 Nonsustained ventricular tachycardia I47.2 Chest heaviness R07.89 CKD (chronic kidney disease), stage IV N18.4 Iron deficiency anemia D50.8 Iron deficiency anemia type: other iron deficiency Paroxysmal atrial fibrillation I48.0 Stenosis of trachea J39.8 SGS (subglottic stenosis) J38.6 Diabetes type 2, uncontrolled E11.65 Glycemic state: with hyperglycemia Asthma J45.40 Asthma complication type: uncomplicated Asthma persistence: persistent Asthma severity: moderate Depression F32.9 Active/Remission status: remission status unspecified Depression Type: major depressive disorder Major depression recurrence: unspecified whether recurrent Essential hypertension I10 Obstructive sleep apnea of adult G47.33 GERD without esophagitis K21.9 Hypothyroidism E03.9 Hypothyroidism type: unspecified Dyslipidemia E78.5 Oropharyngeal dysphagia R13.12 Elevated liver transaminase level R74.01 roasterman (current) use of anticoagulants Z79.01 Discharge planning issues Z02.9 Intellectual disability F79 DVT prophylaxis Z29.9 Time Spent (min) 25 (1) Depression Active/Remission status: remission status unspecified Depression Type: major depressive disorder Major depression recurrence: unspecified whether recurrent Qualified Code(s): F32.9 - Major depressive disorder, single episode, unspec ified (2) Hypothyroidism Hypothyroidism type: unspecified Qualified Code(s): E03.9 - Hypothyroidism, unspecified (3) Diabetes type 2, uncontrolled Glycemic state: with hyperglycemia Qualified Code(s): E11.65 - Type 2 diabetes mellitus with hyperglycemia (4) Iron deficiency anemia Iron deficiency anemia type: other iron deficiency Qualified Code(s): D50.8 - Other iron deficiency anemias (5) Asthma Asthma complication type: uncomplicated Asthma persistence: persistent Asthma severity: moderate Qualified Code(s): J45.40 - Moderate persistent asthma, uncomplicated
[2021-03-23] MEDS: LEVOTHYROXINE SODIUM 88 MCG TABLET PO SCH (05:58)
[2021-03-23 08:33] LABS: Hematocrit (blood only) 31.9 % (37-47); Hemoglobin 9.9 g/dL (12.0-16.0); Mean Corpuscular Volume 86.9 fL (80-100); Mean Platelet Volume 10.6 fL (7.4-10.4); Platelet Count 171 K/uL (130-400); RDW Standard Deviation 58.6 fL (36.4-46.3); Red Blood Count 3.67 M/uL (4.2-5.4); White Blood Count 6.92 K/uL (4.8-10.8)
[2021-03-23 08:41] LABS: Prothrombin Time 18.8 Seconds (9.0-12.0)
[2021-03-23] MEDS: DOCUSATE SODIUM 100 MG CAP PO SCH ×4 (08:42→21:15)
[2021-03-23] MEDS: POLYETHYLENE (MIRALAX) 17 GM PACK PO SCH ×2 (08:42→21:13)
[2021-03-23] MEDS: allopurinoL 100 MG TAB PO SCH (08:43)
[2021-03-23] MEDS: POTASSIUM CHLORIDE CRTAB 20 MEQ TABCR PO SCH ×2 (08:43→21:14)
[2021-03-23] MEDS: PANTOprazole 40 MG TAB PO SCH (08:43)
[2021-03-23] MEDS: ISOSORBIDE MONO EXTENDED REL 30 MG TABCR PO SCH ×3 (08:43→21:14)
[2021-03-23] MEDS: guaiFENesin 600 MG TABCR PO SCH ×2 (08:43→21:15)
[2021-03-23] MEDS: DICLOFENAC SOD 1% GEL 100 GM TUBE EXT SCH ×4 (08:44→21:14)
[2021-03-23] MEDS: AZELASTINE SCH ×2 (08:44→21:14)
[2021-03-23] MEDS: CALCITRIOL 0.25 MCG CAPSULE PO SCH (08:45)
[2021-03-23] MEDS: metOLazone 2.5 MG TABLET PO SCH (08:45)
[2021-03-23] MEDS: DULoxetine HCL 30 MG CAP PO SCH (08:45)
[2021-03-23] MEDS: FEXOFENADINE HCL 180 MG TAB PO SCH (08:46)
[2021-03-23] MEDS: METOPROLOL TARTRATE 25 MG TAB PO SCH ×2 (08:46→21:15)
[2021-03-23] MEDS: INSULIN GLARGINE SOLOSTAR 100 UNITS/ML 3 ML PEN SC SCH (08:47)
[2021-03-23] MEDS: INSULIN ASPART 100 UNITS/ML 3 ML PEN SC SCH ×5 (08:47→22:48)
[2021-03-23] MEDS: FENOFIBRIC ACID PO SCH (08:48)
[2021-03-23 08:56] LABS: BUN Creatinine Ratio 28.9 (10-20); Calcium 9.4 mg/dl (8.5-10.1); Est GFR (African American) 19.8 ml/min; Est GFR (Non-African American) 17.1 ml/min; Potassium 3.1 mmol/L (3.5-5.1)
[2021-03-23] MEDS: BUMETANIDE 1 MG TAB PO SCH ×2 (09:09→17:13)
[2021-03-23] MEDS: ACETAMINOPHEN 325 MG TAB PO PRN (09:25)
--- NOTE | 2021-03-23 10:09 | Nephrology Progress Note ---
Date of Service March 23, 2021 Assessment & Plan (1) CKD (chronic kidney disease), stage IV: * LE edema has markedly improved * Cr is stable at 2.6 * Continue Bumex 2 mg po BID * Continue Zaroxolyn 2.5 mg daily * Continue KCl 20 mEq po BID * Monitor PRP * Awaiting transfer to SNF * Please have patient follow up w/ Dr. Sanchez in 7 - 14 days ([phone]) * Will sign off. Please call if further Nephrology assistance is needed (2) Essential hypertension: * BP acceptable. Volume status improving * On Imdur, Metoprolol (3) Acute on chronic heart failure with preserved ejection fraction (HFpEF): * Goal is to maintain net negative fluid balance >1 L/d * Nuclear stress test was negative for inducible ischemia, LVEF 57% (4) Chronic anemia: * Completed 2g infusion of IV Venofer * Epogen 10,000 units SQ x1 given 03/17/21 * Hgb is trending up (5) Secondary hyperparathyroidism of renal origin: * On Calcitriol and Ergocalciferol * Monitor serum Ca Admission and Anticipated Discharge Date Admission Date: March 07, 2021 Subjective Mrs. Baer was seen & examined in her hospital room this morning. She was sitting up in a chair this morning and notes that her leg edema is improved. She is breathing comfortably on RA. She voices no new medical concerns Review of Systems Constitutional: no fever Eyes: no problem reported Ear, Nose, Mouth, Throat: no problem reported Respiratory: no dyspnea Cardiovascular: no chest pain Gastrointestinal: no abdominal pain, no nausea and no diarrhea/loose stools Genitourinary: no dysuria and no hematuria Neurologic: no confusion Physical Exam Constitutional: + overweight; not in distress Eyes: PERRL, conjunctivae normal, anicteric sclerae ENMT: external ear and nose normal, oropharynx normal Neck: trachea midline, no thyromegaly Respiratory: normal respiratory effort, lungs clear to auscultation Cardiovascular: RRR, no murmur, no edema Rate/Rhythm: regular rate and regular rhythm Extremities: + edema (trace B LE swelling) Gastrointestinal (Abdomen): normal bowel sounds, soft, nontender, no hepatosplenomegaly Musculoskeletal: Extremities: no cyanosis Skin: no rashes, warm and dry Neurologic: awake; not confused Results & Data ([facility]) Vital Signs (Past 12 Hours) Vital Signs Temp Pulse Pulse Pulse Resp BP BP 03/23/21 07:24 36.6 C 55 L 20 129/65 03/23/21 03:37 52 L 20 03/23/21 03:26 36.5 C 68 22 137/68 03/23/21 00:30 52 L 03/22/21 23:20 36.5 C 49 L 18 131/72 Pulse Ox 03/23/21 07:24 98 03/23/21 03:37 94 03/23/21 03:26 94 03/23/21 00:30 03/22/21 23:20 99 Laboratory Tests 03/23/21 03/23/21 08:06 08:06 WBC 6.92 Hgb 9.9 L Hct 31.9 L Plt Count 171 Sodium 132 L Potassium 3.1 L Chloride 94 L Carbon Dioxide 29 BUN 75 H Creatinine 2.60 H Glucose 202 H PG Care Time/CCT Total # of Minutes Spent Total Time Spent with Patient: Total time spent is greater than 50% in coordination of care (as documented) at patient's floor/unit and/or counseling patient: Coding Level of Care Code 27886 Subseq Hosp Care Lvl 3 Diagnoses CKD (chronic kidney disease), stage IV N18.4 Essential hypertension I10 Acute on chronic heart failure with preserved ejection fraction (HFpEF) I50.33 Chronic anemia D64.9 Secondary hyperparathyroidism of renal origin N25.81
[2021-03-23] MEDS: NYSTATIN CR 15 GM TUBE EXT SCH ×2 (12:40→21:15)
[2021-03-23] MEDS ORDERED: INSULIN ASPART 100 UNITS/ML 3 ML PEN SC SCH (16:30)
[2021-03-23] MEDS: WARFARIN SOD 2 MG TAB PO SCH (16:38)
--- NOTE | 2021-03-23 18:03 | Hospitalist Progress Note ---
Date of Service March 23, 2021 Assessment & Plan (1) Acute on chronic heart failure with preserved ejection fraction (HFpEF): EF was 55 - 60% on 03/08 with mild LVH. - Switched to Bumex 2 mg PO BID on 03/22 with metolazone 2.5 mg PO QAM. - Continue BB. - Not FELIX or ARB candidate due to CKD. - Presently appears euvolemic. (2) CKD (chronic kidney disease), stage IV: Baseline Cr 1.9 to 2.6. - Cr today is 2.6. - Nephrology following. (3) Paroxysmal atrial fibrillation: NSR on tele over last 24 hours. - Cont beta-sharon. - INR 2.0, will repeat tomorrow. (4) Diabetes type 2, uncontrolled: A1c was 8.8% this admission. - Continue NovoLog with Lantus. - Blood sugars have been 100 - 200. (5) Nonsustained ventricular tachycardia: 11-beat run 03/14/21 (morning) while exercising/working with PT. She is a poor historian but did seem to have had symptoms from this during the PT. - Lexiscan nuclear stress test NEGATIVE for ischemia. - Report not up; will need to discuss with cardiac imaging. - Cont beta sharon. - Monitor K+ & Mg (6) Iron deficiency anemia: Completed 5-day course of daily Venofer. - CBC today stable at 9.9. (7) Stenosis of trachea: Tracheal stenosis/subglottic stenosis - Status post recent procedure at [facility] for such. - Follows with Dr Mondragon locally. (8) SGS (subglottic stenosis): See above (9) Asthma: No exacerbation at this time. - Cont albuterol QID (10) Depression: No overt depression today. - Continue duloxetine 30 mg daily (11) Essential hypertension: BP today is 160/60. - Continue Imdur, beta-sharon (12) Obstructive sleep apnea of adult: - CPAP at bedtime. (13) GERD without esophagitis: - Continue pantoprazole and metoclopramide (14) Hypothyroidism: TSH 7.2 early January; Repeat TSH this admit was also normal. - Continue levothyroxine 88 mcg daily (15) Dyslipidemia: - Continue fenofibric acid and simvastatin/Zetia (16) Oropharyngeal dysphagia: Video swallow showed minimal aspiration this admission. - Swallowing fine on minced/moist diet (17) DVT prophylaxis: Coumadin for paroxysmal afib Admission and Anticipated Discharge Date Admission Date: March 07, 2021 Subjective Doing well today. No major issues. Reports no fevers/chills, chest pain, shortness of breath, abdominal pain, nausea, or vomiting. Physical Exam Constitutional: WD/WN, vitals as above Eyes: EOM intact bilaterally; no conjunctival abnormality ENMT: external ear and nose normal, oropharynx normal Neck: trachea midline, no thyromegaly normal visual inspection Respiratory: normal respiratory effort, lungs clear to auscultation no respiratory distress Cardiovascular: RRR, no murmur, no edema Gastrointestinal (Abdomen): Inspection/Auscultation: abdomen normal to inspection; abdomen not distended Musculoskeletal: no cyanosis or clubbing, extremities motor strength 5/5 Skin: no rashes, warm and dry Neurologic: moves all extremities and awake Psychiatric: Orientation: alert, oriented to person and cooperative Results & Data Results & Data ([facility]) Vital Signs (Past 12 Hours) Vital Signs Temp Pulse Pulse Pulse Resp BP BP 03/23/21 17:39 36.8 C 64 18 159/58 H 03/23/21 15:00 36.7 C 70 68 20 115/65 03/23/21 11:29 36.6 C 59 L 18 116/57 L 03/23/21 08:00 60 03/23/21 07:24 36.6 C 55 L 20 129/65 Pulse Ox 03/23/21 17:39 97 03/23/21 15:00 96 03/23/21 11:29 99 03/23/21 08:00 03/23/21 07:24 98 PG Care Time/CCT Total # of Minutes Spent Total Time Spent with Patient: Total time spent is greater than 50% in coordination of care (as documented) at patient's floor/unit and/or counseling patient: Coding Level of Care Code 18485 Subseq Hosp Care Lvl 3 Diagnoses Acute on chronic heart failure with preserved ejection fraction (HFpEF) I50.33 CKD (chronic kidney disease), stage IV N18.4 Paroxysmal atrial fibrillation I48.0 Diabetes type 2, uncontrolled E11.65 Glycemic state: with hyperglycemia Nonsustained ventricular tachycardia I47.2 Iron deficiency anemia D50.8 Iron deficiency anemia type: other iron deficiency Stenosis of trachea J39.8 SGS (subglottic stenosis) J38.6 Asthma J45.40 Asthma severity: moderate Asthma persistence: persistent Asthma complication type: uncomplicated Depression F32.9 Depression Type: major depressive disorder Major depression recurrence: unspecified whether recurrent Active/Remission status: remission status unspecified Essential hypertension I10 Obstructive sleep apnea of adult G47.33 GERD without esophagitis K21.9 Hypothyroidism E03.9 Hypothyroidism type: unspecified Dyslipidemia E78.5 Oropharyngeal dysphagia R13.12 DVT prophylaxis Z29.9 (1) Iron deficiency anemia Iron deficiency anemia type: other iron deficiency Qualified Code(s): D50.8 - Other iron deficiency anemias (2) Diabetes type 2, uncontrolled Glycemic state: with hyperglycemia Qualified Code(s): E11.65 - Type 2 diabetes mellitus with hyperglycemia (3) Asthma Asthma severity: moderate Asthma persistence: persistent Asthma complication type: uncomplicated Qualified Code(s): J45.40 - Moderate persistent asthma, uncomplicated (4) Depression Depression Type: major depressive disorder Major depression recurrence: unspecified whether recurrent Active/Remission status: remission status unspecified Qualified Code(s): F32.9 - Major depressive disorder, single episode, unspecified (5) Hypothyroidism Hypothyroidism type: unspecified Qualified Code(s): E03.9 - Hypothyroidism, unspecified
[2021-03-23] MEDS: clonazePAM 0.5 MG TAB PO SCH (21:14)
[2021-03-23] MEDS: METOCLOPRAMIDE HCL 10 MG TABLET PO SCH (21:14)
[2021-03-23] MEDS: EZETIMIBE/SIMVASTATIN 10/40MG 1 TAB TAB PO SCH (21:15)
[2021-03-24] MEDS: LEVOTHYROXINE SODIUM 88 MCG TABLET PO SCH (05:29)
[2021-03-24] MEDS: metOLazone 2.5 MG TABLET PO SCH (07:58)
[2021-03-24 08:02] LABS: Hematocrit (blood only) 30.9 % (37-47); Hemoglobin 9.8 g/dL (12.0-16.0); Mean Corpuscular Hemoglobin 27.3 pg (25-34); Mean Corpuscular Hgb Conc 31.7 g/dL (32-36); Mean Corpuscular Volume 86.1 fL (80-100); Mean Platelet Volume 10.4 fL (7.4-10.4); Platelet Count 160 K/uL (130-400); RDW Coefficient of Variation 18.9 % (11.5-14.5); RDW Standard Deviation 58.7 fL (36.4-46.3); Red Blood Count 3.59 M/uL (4.2-5.4)
[2021-03-24 08:19] LABS: Albumin Level 2.8 gm/dl (3.4-5.0); BUN Creatinine Ratio 29.7 (10-20); Calcium 9.5 mg/dl (8.5-10.1); Creatinine Clr Calc Pharmacy 21.6 ml/min; Est GFR (African American) 21.8 ml/min; Est GFR (Non-African American) 18.8 ml/min; Magnesium 2.2 mg/dl (1.8-2.4)
[2021-03-24 08:22] LABS: Albumin Globulin Ratio 0.7 (0.9-2); Bilirubin,Total 0.4 mg/dl (0.2-1); Globulin 3.8 gm/dl (2.5-4.0); Total Protein 6.6 gm/dl (6.4-8.2)
[2021-03-24] MEDS: INSULIN ASPART 100 UNITS/ML 3 ML PEN SC SCH ×4 (09:06→21:31)
[2021-03-24] MEDS: INSULIN GLARGINE SOLOSTAR 100 UNITS/ML 3 ML PEN SC SCH ×2 (09:08→21:32)
[2021-03-24] MEDS: FEXOFENADINE HCL 180 MG TAB PO SCH (09:16)
[2021-03-24] MEDS: DULoxetine HCL 30 MG CAP PO SCH (09:16)
[2021-03-24] MEDS: allopurinoL 100 MG TAB PO SCH (09:16)
[2021-03-24] MEDS: BUMETANIDE 1 MG TAB PO SCH ×2 (09:17→17:27)
[2021-03-24] MEDS: CALCITRIOL 0.25 MCG CAPSULE PO SCH (09:17)
[2021-03-24] MEDS: PANTOprazole 40 MG TAB PO SCH (09:17)
[2021-03-24] MEDS: POLYETHYLENE (MIRALAX) 17 GM PACK PO SCH ×2 (09:19→21:17)
[2021-03-24] MEDS: guaiFENesin 600 MG TABCR PO SCH ×2 (09:22→21:17)
[2021-03-24] MEDS: METOPROLOL TARTRATE 25 MG TAB PO SCH ×2 (09:22→21:28)
[2021-03-24] MEDS: ISOSORBIDE MONO EXTENDED REL 30 MG TABCR PO SCH ×3 (09:22→21:17)
[2021-03-24] MEDS: POTASSIUM CHLORIDE CRTAB 20 MEQ TABCR PO SCH ×3 (09:25→21:18)
[2021-03-24] MEDS: DICLOFENAC SOD 1% GEL 100 GM TUBE EXT SCH ×4 (09:26→21:16)
[2021-03-24] MEDS: FENOFIBRIC ACID PO SCH (09:26)
[2021-03-24] MEDS: AZELASTINE SCH ×2 (09:26→21:20)
[2021-03-24] MEDS: NYSTATIN CR 15 GM TUBE EXT SCH ×2 (09:27→21:21)
[2021-03-24] MEDS: DOCUSATE SODIUM 100 MG CAP PO SCH ×4 (09:30→21:16)
[2021-03-24] MEDS: ACETAMINOPHEN 325 MG TAB PO PRN ×2 (12:44→21:41)
--- NOTE | 2021-03-24 13:50 | Hospitalist Progress Note ---
Date of Service March 24, 2021 Assessment & Plan (1) Acute on chronic heart failure with preserved ejection fraction (HFpEF): EF was 55 - 60% on 03/08 with mild LVH. - Switched to Bumex 2 mg PO BID on 03/22 with metolazone 2.5 mg PO QAM. - Continue beta-sharon. - Not ACEi or ARB candidate due to CKD. - Presently appears euvolemic. (2) CKD (chronic kidney disease), stage IV: Baseline Cr 1.9 to 2.6. - Cr today is 2.4. - Nephrology following. (3) Paroxysmal atrial fibrillation: NSR on tele over last 24 hours. - Cont beta-sharon. - INR 2.0, will repeat tomorrow. (4) Diabetes type 2, uncontrolled: A1c was 8.8% this admission. - Continue NovoLog with Lantus. - Blood sugars have been 100 - 250. (5) Nonsustained ventricular tachycardia: 11-beat run 03/14/21 (morning) while exercising/working with PT. She is a poor historian but did seem to have had symptoms from this during the PT. - Lexiscan nuclear stress test NEGATIVE for ischemia. - Report not up; will need to discuss with cardiac imaging. - Cont beta sharon. - Monitor K+ & Mg (6) Iron deficiency anemia: Completed 5-day course of daily Venofer. - CBC today stable at 9.8. (7) Stenosis of trachea: Tracheal stenosis/subglottic stenosis - Status post recent procedure at [facility] for such. - Follows with Dr Mondragon locally. (8) SGS (subglottic stenosis): See above (9) Asthma: No exacerbation at this time. - Cont albuterol QID (10) Depression: No overt depression today. - Continue duloxetine 30 mg daily (11) Essential hypertension: BP today is 170/75. - Continue Imdur, beta-sharon (12) Obstructive sleep apnea of adult: - CPAP at bedtime. (13) GERD without esophagitis: - Continue pantoprazole and metoclopramide (14) Hypothyroidism: TSH 7.2 early January; Repeat TSH this admit was also normal. - Continue levothyroxine 88 mcg daily (15) Dyslipidemia: - Continue fenofibric acid and simvastatin/Zetia (16) Oropharyngeal dysphagia: Video swallow showed minimal aspiration this admission. - Swallowing fine on minced/moist diet (17) DVT prophylaxis: Coumadin for paroxysmal afib Admission and Anticipated Discharge Date Admission Date: March 07, 2021 Subjective Doing well today. No complaints. Reports no fevers/chills, chest pain, shortness of breath, abdominal pain, nausea, or vomiting. Physical Exam Constitutional: WD/WN, vitals as above Eyes: EOM intact bilaterally; no conjunctival abnormality ENMT: external ear and nose normal, oropharynx normal Neck: trachea midline, no thyromegaly normal visual inspection Respiratory: normal respiratory effort, lungs clear to auscultation no respiratory distress Cardiovascular: RRR, no murmur, no edema Gastrointestinal (Abdomen): Inspection/Auscultation: abdomen normal to inspection; abdomen not distended Musculoskeletal: no cyanosis or clubbing, extremities motor strength 5/5 Skin: no rashes, warm and dry Neurologic: moves all extremities and awake Psychiatric: Orientation: alert, oriented to person and cooperative Results & Data Results & Data ([facility]) Vital Signs (Past 12 Hours) Vital Signs Temp Pulse Pulse Resp BP BP Pulse Ox 03/24/21 13:26 55 L 18 167/74 H 99 03/24/21 06:58 36.4 C L 61 17 120/64 96 03/24/21 03:20 63 18 95 PG Care Time/CCT Total # of Minutes Spent Total Time Spent with Patient: Total time spent is greater than 50% in coordination of care (as documented) at patient's floor/unit and/or counseling patient: Coding Level of Care Code 36070 Subseq Hosp Care Lvl 2 Diagnoses Acute on chronic heart failure with preserved ejection fraction (HFpEF) I50.33 CKD (chronic kidney disease), stage IV N18.4 Paroxysmal atrial fibrillation I48.0 Diabetes type 2, uncontrolled E11.65 Glycemic state: with hyperglycemia Nonsustained ventricular tachycardia I47.2 Iron deficiency anemia D50.8 Iron deficiency anemia type: other iron deficiency Stenosis of trachea J39.8 SGS (subglottic stenosis) J38.6 Asthma J45.40 Asthma severity: moderate Asthma persistence: persistent Asthma complication type: uncomplicated Depression F32.9 Depression Type: major depressive disorder Major depression recurrence: unspecified whether recurrent Active/Remission status: remission status unspecified Essential hypertension I10 Obstructive sleep apnea of adult G47.33 GERD without esophagitis K21.9 Hypothyroidism E03.9 Hypothyroidism type: unspecified Dyslipidemia E78.5 Oropharyngeal dysphagia R13.12 DVT prophylaxis Z29.9 (1) Diabetes type 2, uncontrolled Glycemic state: with hyperglycemia Qualified Code(s): E11.65 - Type 2 diabetes mellitus with hyperglycemia (2) Iron deficiency anemia Iron deficiency anemia type: other iron deficiency Qualified Code(s): D50.8 - Other iron deficiency anemias (3) Asthma Asthma severity: moderate Asthma persistence: persistent Asthma complication type: uncomplicated Qualified Code(s): J45.40 - Moderate persistent asthma, uncomplicated (4) Depression Depression Type: major depressive disorder Major depression recurrence: unspecified whether recurrent Active/Remission status: remission status unspecified Qualified Code(s): F32.9 - Major depressive disorder, single episode, unspecified (5) Hypothyroidism Hypothyroidism type: unspecified Qualified Code(s): E03.9 - Hypothyroidism, unspecified
[2021-03-24] MEDS: WARFARIN SOD 2 MG TAB PO SCH (17:26)
[2021-03-24] MEDS: clonazePAM 0.5 MG TAB PO SCH (21:16)
[2021-03-24] MEDS: EZETIMIBE/SIMVASTATIN 10/40MG 1 TAB TAB PO SCH (21:17)
[2021-03-24] MEDS: METOCLOPRAMIDE HCL 10 MG TABLET PO SCH (21:21)
[2021-03-25] MEDS: LEVOTHYROXINE SODIUM 88 MCG TABLET PO SCH (05:54)
[2021-03-25 06:29] LABS: Hematocrit (blood only) 30.4 % (37-47); Hemoglobin 9.8 g/dL (12.0-16.0); Mean Corpuscular Hemoglobin 27.5 pg (25-34); Mean Corpuscular Hgb Conc 32.2 g/dL (32-36); Mean Corpuscular Volume 85.2 fL (80-100); Mean Platelet Volume 10.3 fL (7.4-10.4); Platelet Count 147 K/uL (130-400); RDW Standard Deviation 58.4 fL (36.4-46.3); Red Blood Count 3.57 M/uL (4.2-5.4); White Blood Count 6.58 K/uL (4.8-10.8)
[2021-03-25 06:46] LABS: INR 1.9 (0.9-1.1); Prothrombin Time 18.2 Seconds (9.0-12.0)
[2021-03-25 06:53] LABS: BUN Creatinine Ratio 31.3 (10-20); Calcium 9.6 mg/dl (8.5-10.1); Creatinine Clr Calc Pharmacy 20.3 ml/min; Est GFR (African American) 19.7 ml/min; Magnesium 2.4 mg/dl (1.8-2.4); Potassium 3.5 mmol/L (3.5-5.1)
[2021-03-25] MEDS: POTASSIUM CHLORIDE CRTAB 20 MEQ TABCR PO SCH (08:52)
[2021-03-25] MEDS: DICLOFENAC SOD 1% GEL 100 GM TUBE EXT SCH ×4 (08:52→20:44)
[2021-03-25] MEDS: AZELASTINE SCH ×2 (08:52→20:37)
[2021-03-25] MEDS: NYSTATIN CR 15 GM TUBE EXT SCH ×2 (08:53→20:37)
[2021-03-25] MEDS: ISOSORBIDE MONO EXTENDED REL 30 MG TABCR PO SCH ×3 (08:53→20:35)
[2021-03-25] MEDS: guaiFENesin 600 MG TABCR PO SCH ×2 (08:53→20:44)
[2021-03-25] MEDS: FENOFIBRIC ACID PO SCH (08:53)
[2021-03-25] MEDS: DULoxetine HCL 30 MG CAP PO SCH (08:54)
[2021-03-25] MEDS: metOLazone 2.5 MG TABLET PO SCH (08:54)
[2021-03-25] MEDS: CALCITRIOL 0.25 MCG CAPSULE PO SCH (08:54)
[2021-03-25] MEDS: FEXOFENADINE HCL 180 MG TAB PO SCH (08:54)
[2021-03-25] MEDS: PANTOprazole 40 MG TAB PO SCH (08:54)
[2021-03-25] MEDS: allopurinoL 100 MG TAB PO SCH (08:55)
[2021-03-25] MEDS: METOPROLOL TARTRATE 25 MG TAB PO SCH ×2 (08:55→20:38)
[2021-03-25] MEDS: DOCUSATE SODIUM 100 MG CAP PO SCH ×4 (09:01→20:49)
[2021-03-25] MEDS: POLYETHYLENE (MIRALAX) 17 GM PACK PO SCH ×2 (09:01→20:34)
[2021-03-25] MEDS: INSULIN GLARGINE SOLOSTAR 100 UNITS/ML 3 ML PEN SC SCH ×2 (09:04→20:52)
[2021-03-25] MEDS: INSULIN ASPART 100 UNITS/ML 3 ML PEN SC SCH ×4 (09:04→20:51)
[2021-03-25] MEDS: ACETAMINOPHEN 325 MG TAB PO PRN ×2 (09:11→19:32)
[2021-03-25] MEDS: BUMETANIDE 1 MG TAB PO SCH (09:37)
--- NOTE | 2021-03-25 10:19 | Pharmacy Report ---
Pharmacy Glycemic Short Note 2 - Date of Service March 25, 2021 - Glycemic Short BSG Results (Last 24 hours): 03/24/21 03/24/21 03/24/21 12:12 17:00 20:45 Glucose POC Glucose 253 H 154 H 229 H 03/25/21 03/25/21 06:12 08:19 Glucose 164 H POC Glucose 171 H OUTPATIENT ANTIDIABETIC REGIMEN: * Insulin glargine (Basaglar) 45 units SQ BID * NovoLog 3-6 units SQ with meals * A1c = 6.5% on 03/08/21 ASSESSMENT: 03/25 * Pt has received 97 units of insulin over the past 24hrs * 55 units of basal with Lantus * 42 units of bolus with NovoLog * BSGs [phone] mg/dl * Pre-lunch BSG still the highest BSG of the day indicating more CHO coverage needed at breakfast only. Will tighten breakfast CR. * Lantus added at HS last evening since Lantus likely not lasting 24hrs for patient. Pt does take Lantus BID as an outaptient. AM fasting BSG is still elevated therefore will continue to increase PM Lantus. 03/22 * Patient received total of 56 units of insulin yesterday, PO intake improving * Fasting BSG 222 mg/dL - plan to increase basal ~30% this AM to 33 units daily * Tightened CF/CR at breakfast since lunch time BSGs have been elevated 03/08 * 75yo T2DM female with excellent outpatient control per recent A1c * Pt with LOW BSG today secondary to too much basal insulin on board * Outpatient regimen is heavily weighted towards basal insulin (basal insulin = 90 units; bolus insulin max 18 units) indicating that basal insulin is covering some prandial requirements. * Pt with LOW BSG when outpatient basal insulin continued with NPO status * Will adjust/decrease insulin regimen for NPO and continue to titrate based on BSG trends. PLAN FOR INPATIENT GLYCEMIC CONTROL: * Basal insulin - increase * Lantus 40 units daily in AM + 15-20 units at HS depending on BSG * Bolus insulin * NovoLog per scale ACHS or Q6hrs while NPO * Goal Range: Low 110 mg/dL - High 140 mg/dL * Correction Factor: 15 mg/dL/unit (breakfast) and 45 (all other meals) * Nutritional / Prandial insulin per carb ratio of 1 unit per 2.5 grams CHO consumed (breakfast) and 6 (all other meals) PLAN FOR DISCHARGE: * HbA1c of 6.5% suggests excellent outpatient glycemic control * Lantus dose may need to be adjusted based on appetite at time of discharge. Requiring about half of outpatient insulin dose during this admission * Will continue to follow and adjust discharge recs as necessary
[2021-03-25] MEDS: WARFARIN SOD 2 MG TAB PO SCH (17:18)
--- NOTE | 2021-03-25 17:54 | Hospitalist Progress Note ---
Date of Service March 25, 2021 Assessment & Plan (1) Acute on chronic heart failure with preserved ejection fraction (HFpEF): EF was 55 - 60% on 03/08 with mild LVH. - Switched to Bumex 2 mg PO BID on 03/22 with metolazone 2.5 mg PO QAM. - Continue beta-sharon. - Not ACEi or ARB candidate due to CKD. - Presently appears euvolemic, but Cr rising slightly. Held PM dose of Bumex and will hold AM metolazone. (2) CKD (chronic kidney disease), stage IV: Baseline Cr 1.9 to 2.6. - Cr today is 2.6. - Nephrology following. (3) Paroxysmal atrial fibrillation: NSR on tele while on telemetry. - Cont beta-sharon. - INR 1.9, will repeat tomorrow. (4) Diabetes type 2, uncontrolled: A1c was 8.8% this admission. - Continue NovoLog with Lantus. - Blood sugars have been 140 - 220. (5) Nonsustained ventricular tachycardia: 11-beat run 03/14/21 (morning) while exercising/working with PT. She is a poor historian but did seem to have had symptoms from this during the PT. - Lexiscan nuclear stress test NEGATIVE for ischemia. - Report not up; will need to discuss with cardiac imaging. - Cont beta sharon. - Monitor K+ & Mg (6) Iron deficiency anemia: Completed 5-day course of daily Venofer. - CBC today stable at 9.8. (7) Stenosis of trachea: Tracheal stenosis/subglottic stenosis - Status post recent procedure at [facility] for such. - Follows with Dr Mondragon locally. (8) SGS (subglottic stenosis): See above (9) Asthma: No exacerbation at this time. - Cont albuterol QID (10) Depression: No overt depression today. - Continue duloxetine 30 mg daily (11) Essential hypertension: BP today is 170/75. - Continue Imdur, beta-sharon (12) Obstructive sleep apnea of adult: - CPAP at bedtime. (13) GERD without esophagitis: - Continue pantoprazole and metoclopramide (14) Hypothyroidism: TSH 7.2 early January; Repeat TSH this admit was also normal. - Continue levothyroxine 88 mcg daily (15) Dyslipidemia: - Continue fenofibric acid and simvastatin/Zetia (16) Oropharyngeal dysphagia: Video swallow showed minimal aspiration this admission. - Swallowing fine on minced/moist diet (17) DVT prophylaxis: Coumadin for paroxysmal afib Admission and Anticipated Discharge Date Admission Date: March 07, 2021 Subjective Comfortable today. No issues. Physical Exam Constitutional: WD/WN, vitals as above Eyes: EOM intact bilaterally; no conjunctival abnormality ENMT: external ear and nose normal, oropharynx normal Neck: trachea midline, no thyromegaly normal visual inspection Respiratory: normal respiratory effort, lungs clear to auscultation no respiratory distress Cardiovascular: RRR, no murmur, no edema Gastrointestinal (Abdomen): Inspection/Auscultation: abdomen normal to inspection; abdomen not distended Musculoskeletal: no cyanosis or clubbing, extremities motor strength 5/5 Skin: no rashes, warm and dry Neurologic: moves all extremities and awake Psychiatric: Orientation: alert, oriented to person and cooperative Results & Data Results & Data ([facility]) Vital Signs (Past 12 Hours) Vital Signs Temp Pulse Pulse Resp BP BP Pulse Ox 03/25/21 14:18 36.8 C 55 L 16 96/56 L 98 03/25/21 12:54 61 113/67 03/25/21 08:19 36.9 C 58 L 16 134/65 98 PG Care Time/CCT Total # of Minutes Spent Total Time Spent with Patient: Total time spent is greater than 50% in coordination of care (as documented) at patient's floor/unit and/or counseling patient: Coding Level of Care Code 54594 Subseq Hosp Care Lvl 2 Diagnoses Acute on chronic heart failure with preserved ejection fraction (HFpEF) I50.33 CKD (chronic kidney disease), stage IV N18.4 Paroxysmal atrial fibrillation I48.0 Diabetes type 2, uncontrolled E11.65 Glycemic state: with hyperglycemia Nonsustained ventricular tachycardia I47.2 Iron deficiency anemia D50.8 Iron deficiency anemia type: other iron deficiency Stenosis of trachea J39.8 SGS (subglottic stenosis) J38.6 Asthma J45.40 Asthma severity: moderate Asthma persistence: persistent Asthma complication type: uncomplicated Depression F32.9 Depression Type: major depressive disorder Major depression recurrence: unspecified whether recurrent Active/Remission status: remission status unspecified Essential hypertension I10 Obstructive sleep apnea of adult G47.33 GERD without esophagitis K21.9 Hypothyroidism E03.9 Hypothyroidism type: unspecified Dyslipidemia E78.5 Oropharyngeal dysphagia R13.12 DVT prophylaxis Z29.9 (1) Diabetes type 2, uncontrolled Glycemic state: with hyperglycemia Qualified Code(s): E11.65 - Type 2 diabetes mellitus with hyperglycemia (2) Iron deficiency anemia Iron deficiency anemia type: other iron deficiency Qualified Code(s): D50.8 - Other iron deficiency anemias (3) Asthma Asthma severity: moderate Asthma persistence: persistent Asthma complication type: uncomplicated Qualified Code(s): J45.40 - Moderate persistent asthma, uncomplicated (4) Depression Depression Type: major depressive disorder Major depression recurrence: unspecified whether recurrent Active/Remission status: remission status unspecified Qualified Code(s): F32.9 - Major depressive disorder, single episode, unspecified (5) Hypothyroidism Hypothyroidism type: unspecified Qualified Code(s): E03.9 - Hypothyroidism, unspecified
[2021-03-25] MEDS: EZETIMIBE/SIMVASTATIN 10/40MG 1 TAB TAB PO SCH (20:36)
[2021-03-25] MEDS: METOCLOPRAMIDE HCL 10 MG TABLET PO SCH (20:38)
[2021-03-25] MEDS: clonazePAM 0.5 MG TAB PO SCH (20:49)
[2021-03-26] MEDS: LEVOTHYROXINE SODIUM 88 MCG TABLET PO SCH (05:52)
[2021-03-26 07:55] LABS: Hemoglobin 9.8 g/dL (12.0-16.0); Mean Corpuscular Hemoglobin 27.4 pg (25-34); Mean Corpuscular Hgb Conc 31.6 g/dL (32-36); Mean Corpuscular Volume 86.6 fL (80-100); Mean Platelet Volume 10.5 fL (7.4-10.4); Platelet Count 150 K/uL (130-400); RDW Standard Deviation 59.8 fL (36.4-46.3); Red Blood Count 3.58 M/uL (4.2-5.4); White Blood Count 4.83 K/uL (4.8-10.8)
[2021-03-26 08:06] LABS: INR 1.6 (0.9-1.1); Prothrombin Time 15.8 Seconds (9.0-12.0)
[2021-03-26 08:34] LABS: Albumin Level 2.7 gm/dl (3.4-5.0); BUN Creatinine Ratio 30.8 (10-20); Calcium 9.3 mg/dl (8.5-10.1); Creatinine Clr Calc Pharmacy 19.8 ml/min; Est GFR (African American) 19.1 ml/min; Est GFR (Non-African American) 16.5 ml/min; Magnesium 2.4 mg/dl (1.8-2.4); Potassium 3.3 mmol/L (3.5-5.1)
[2021-03-26 08:37] LABS: Albumin Globulin Ratio 0.8 (0.9-2); Bilirubin,Total 0.4 mg/dl (0.2-1); Globulin 3.4 gm/dl (2.5-4.0); Total Protein 6.1 gm/dl (6.4-8.2)
[2021-03-26] MEDS: ISOSORBIDE MONO EXTENDED REL 30 MG TABCR PO SCH ×2 (08:49→13:56)
[2021-03-26] MEDS: allopurinoL 100 MG TAB PO SCH (08:49)
[2021-03-26] MEDS: FEXOFENADINE HCL 180 MG TAB PO SCH (08:50)
[2021-03-26] MEDS: guaiFENesin 600 MG TABCR PO SCH ×2 (08:50→20:25)
[2021-03-26] MEDS: PANTOprazole 40 MG TAB PO SCH (08:50)
[2021-03-26] MEDS: CALCITRIOL 0.25 MCG CAPSULE PO SCH (08:50)
[2021-03-26] MEDS: DULoxetine HCL 30 MG CAP PO SCH (08:50)
[2021-03-26] MEDS: POTASSIUM CHLORIDE CRTAB 20 MEQ TABCR PO SCH (08:51)
[2021-03-26] MEDS: DICLOFENAC SOD 1% GEL 100 GM TUBE EXT SCH ×4 (08:52→20:25)
[2021-03-26] MEDS: FENOFIBRIC ACID PO SCH (08:53)
[2021-03-26] MEDS: AZELASTINE SCH ×2 (08:54→20:25)
[2021-03-26] MEDS: NYSTATIN CR 15 GM TUBE EXT SCH ×2 (08:54→20:26)
[2021-03-26] MEDS: INSULIN GLARGINE SOLOSTAR 100 UNITS/ML 3 ML PEN SC SCH ×2 (08:55→20:56)
[2021-03-26] MEDS: INSULIN ASPART 100 UNITS/ML 3 ML PEN SC SCH ×4 (08:57→20:56)
[2021-03-26] MEDS: POLYETHYLENE (MIRALAX) 17 GM PACK PO SCH ×2 (09:02→20:24)
[2021-03-26] MEDS: DOCUSATE SODIUM 100 MG CAP PO SCH ×4 (09:08→20:24)
[2021-03-26] MEDS: METOPROLOL TARTRATE 25 MG TAB PO SCH (10:20)
[2021-03-26] MEDS: ACETAMINOPHEN 325 MG TAB PO PRN (10:51)
--- NOTE | 2021-03-26 12:25 | Pharmacy Report ---
Pharmacy Glycemic Short Note 2 - Date of Service March 26, 2021 - Glycemic Short BSG Results (Last 24 hours): 03/25/21 03/25/21 03/26/21 17:16 20:36 07:36 Glucose 134 H POC Glucose 139 H 158 H 03/26/21 03/26/21 08:20 12:13 Glucose POC Glucose 132 H 127 H OUTPATIENT ANTIDIABETIC REGIMEN: * Insulin glargine (Basaglar) 45 units SQ BID * NovoLog 3-6 units SQ with meals * A1c = 6.5% on 03/08/21 ASSESSMENT: 03/26 * Pt has received 96 units of insulin over the past 24hrs * 55 units of basal with Lantus * 41 units of bolus with NovoLog * BSGs [id number] mg/dl * Pre-lunch BSG still the highest BSG of the day indicating more CHO coverage needed at breakfast only. Will tighten breakfast CR. * Lantus decreased in the evening as fasting BSGs trending down rapidly. Will give 10 units if BSG > 140 mg/dL and 15 units if BSG > 200 mg/dL. 03/25 * Pt has received 97 units of insulin over the past 24hrs * 55 units of basal with Lantus * 42 units of bolus with NovoLog * BSGs [phone] mg/dl * Pre-lunch BSG still the highest BSG of the day indicating more CHO coverage needed at breakfast only. Will tighten breakfast CR. * Lantus added at HS last evening since Lantus likely not lasting 24hrs for patient. Pt does take Lantus BID as an outaptient. AM fasting BSG is still elevated therefore will continue to increase PM Lantus. 03/22 * Patient received total of 56 units of insulin yesterday, PO intake improving * Fasting BSG 222 mg/dL - plan to increase basal ~30% this AM to 33 units daily * Tightened CF/CR at breakfast since lunch time BSGs have been elevated 03/08 * 75yo T2DM female with excellent outpatient control per recent A1c * Pt with LOW BSG today secondary to too much basal insulin on board * Outpatient regimen is heavily weighted towards basal insulin (basal insulin = 90 units; bolus insulin max 18 units) indicating that basal insulin is covering some prandial requirements. * Pt with LOW BSG when outpatient basal insulin continued with NPO status * Will adjust/decrease insulin regimen for NPO and continue to titrate based on BSG trends. PLAN FOR INPATIENT GLYCEMIC CONTROL: * Basal insulin - increase * Lantus 40 units daily in AM + 0-15 units at HS depending on BSG * Bolus insulin * NovoLog per scale ACHS or Q6hrs while NPO * Goal Range: Low 110 mg/dL - High 140 mg/dL * Correction Factor: 15 mg/dL/unit (breakfast) and 45 (all other meals) * Nutritional / Prandial insulin per carb ratio of 1 unit per 2 grams CHO consumed (breakfast) and 6 (all other meals) PLAN FOR DISCHARGE: * HbA1c of 6.5% suggests excellent outpatient glycemic control * Lantus dose may need to be adjusted based on appetite at time of discharge. Requiring about half of outpatient insulin dose during this admission * Will continue to follow and adjust discharge recs as necessary
[2021-03-26] MEDS: WARFARIN SOD 2 MG TAB PO SCH (15:59)
--- NOTE | 2021-03-26 16:06 | Hospitalist Progress Note ---
Date of Service March 26, 2021 Assessment & Plan (1) Acute on chronic heart failure with preserved ejection fraction (HFpEF): EF was 55 - 60% on 03/08 with mild LVH. - Switched to Bumex 2 mg PO BID on 03/22 with metolazone 2.5 mg PO QAM. - Stopped beta-sharon today for continued lower-normal BP and bradycardia. - Not ACEi or ARB candidate due to CKD. - Presently appears euvolemic, but Cr rising slightly. Held PM dose of Bumex and will hold AM metolazone. Today Cr is up again slightly, but still has pitting edema. Will monitor one more day. (2) CKD (chronic kidney disease), stage IV: Baseline Cr 1.9 to 2.6. - Cr today is 2.7. - Nephrology followed, but has not seen recently. (3) Paroxysmal atrial fibrillation: NSR on tele while on telemetry. - Hold beta-sharon as above. - INR 1.6, will repeat tomorrow. Increase warfarin to 3 mg 3 times per week. Will need to watch closely. (4) Diabetes type 2, uncontrolled: A1c was 8.8% this admission. - Continue NovoLog with Lantus. - Blood sugars have been 130 - 160. (5) Nonsustained ventricular tachycardia: 11-beat run 03/14/21 (morning) while exercising/working with PT. She is a poor historian but did seem to have had symptoms from this during the PT. - Lexiscan nuclear stress test NEGATIVE for ischemia. - Report not up; will need to discuss with cardiac imaging. - Monitor K+ & Mg (6) Iron deficiency anemia: Completed 5-day course of daily Venofer. - CBC today stable at 9.8. (7) Stenosis of trachea: Tracheal stenosis/subglottic stenosis - Status post recent procedure at [facility] for such. - Follows with Dr Mondragon locally. (8) SGS (subglottic stenosis): See above (9) Asthma: No exacerbation at this time. - Cont albuterol QID (10) Depression: No overt depression today. - Continue duloxetine 30 mg daily (11) Essential hypertension: BP has been very variable: Highs of 170/75. Lows in the 90/50 range. - Hold beta-sharon - Will lower Imdur to daily. (12) Obstructive sleep apnea of adult: - CPAP at bedtime. (13) GERD without esophagitis: - Continue pantoprazole and metoclopramide (14) Hypothyroidism: TSH 7.2 early January; Repeat TSH this admit was also normal. - Continue levothyroxine 88 mcg daily (15) Dyslipidemia: - Continue fenofibric acid and simvastatin/Zetia (16) Oropharyngeal dysphagia: Video swallow showed minimal aspiration this admission. - Swallowing fine on minced/moist diet (17) DVT prophylaxis: Coumadin for paroxysmal afib Admission and Anticipated Discharge Date Admission Date: March 07, 2021 Subjective Comfortable today. No issues. Physical Exam Constitutional: WD/WN, vitals as above Eyes: EOM intact bilaterally; no conjunctival abnormality ENMT: external ear and nose normal, oropharynx normal Neck: trachea midline, no thyromegaly normal visual inspection Respiratory: normal respiratory effort, lungs clear to auscultation no respiratory distress Cardiovascular: Rate/Rhythm: regular rate and regular rhythm Extremities: + edema Gastrointestinal (Abdomen): Inspection/Auscultation: abdomen normal to inspection; abdomen not distended Musculoskeletal: no cyanosis or clubbing, extremities motor strength 5/5 Skin: no rashes, warm and dry Neurologic: moves all extremities and awake Psychiatric: Orientation: alert, oriented to person and cooperative Results & Data Results & Data ([facility]) Vital Signs (Past 12 Hours) Vital Signs Temp Pulse Pulse Resp BP BP Pulse Ox 03/26/21 13:52 50 L 92/56 L 03/26/21 08:01 37.5 C 69 16 133/64 98 PG Care Time/CCT Total # of Minutes Spent Total Time Spent with Patient: Total time spent is greater than 50% in co ordination of care (as documented) at patient's floor/unit and/or counseling patient: Coding Level of Care Code 90498 Subseq Hosp Care Lvl 2 Diagnoses Acute on chronic heart failure with preserved ejection fraction (HFpEF) I50.33 CKD (chronic kidney disease), stage IV N18.4 Paroxysmal atrial fibrillation I48.0 Diabetes type 2, uncontrolled E11.65 Glycemic state: with hyperglycemia Nonsustained ventricular tachycardia I47.2 Iron deficiency anemia D50.8 Iron deficiency anemia type: other iron deficiency Stenosis of trachea J39.8 SGS (subglottic stenosis) J38.6 Asthma J45.40 Asthma severity: moderate Asthma persistence: persistent Asthma complication type: uncomplicated Depression F32.9 Depression Type: major depressive disorder Major depression recurrence: unspecified whether recurrent Active/Remission status: remission status unspecified Essential hypertension I10 Obstructive sleep apnea of adult G47.33 GERD without esophagitis K21.9 Hypothyroidism E03.9 Hypothyroidism type: unspecified Dyslipidemia E78.5 Oropharyngeal dysphagia R13.12 DVT prophylaxis Z29.9 (1) Diabetes type 2, uncontrolled Glycemic state: with hyperglycemia Qualified Code(s): E11.65 - Type 2 diabetes mellitus with hyperglycemia (2) Iron deficiency anemia Iron deficiency anemia type: other iron deficiency Qualified Code(s): D50.8 - Other iron deficiency anemias (3) Asthma Asthma severity: moderate Asthma persistence: persistent Asthma complication type: uncomplicated Qualified Code(s): J45.40 - Moderate persistent asthma, uncomplicated (4) Depression Depression Type: major depressive disorder Major depression recurrence: unspecified whether recurrent Active/Remission status: remission status unspecified Qualified Code(s): F32.9 - Major depressive disorder, single episode, unspecified (5) Hypothyroidism Hypothyroidism type: unspecified Qualified Code(s): E03.9 - Hypothyroidism, unspecified
[2021-03-26] MEDS ORDERED: WARFARIN SOD 0.5 MG TAB PO ONE (16:15)
[2021-03-26] MEDS: clonazePAM 0.5 MG TAB PO SCH (20:24)
[2021-03-26] MEDS: EZETIMIBE/SIMVASTATIN 10/40MG 1 TAB TAB PO SCH (20:24)
[2021-03-26] MEDS: METOCLOPRAMIDE HCL 10 MG TABLET PO SCH (20:24)
[2021-03-27] MEDS: LEVOTHYROXINE SODIUM 88 MCG TABLET PO SCH (05:54)
[2021-03-27 08:12] LABS: Hematocrit (blood only) 31.5 % (37-47); Mean Corpuscular Hemoglobin 27.7 pg (25-34); Mean Corpuscular Hgb Conc 31.7 g/dL (32-36); Mean Corpuscular Volume 87.3 fL (80-100); Platelet Count 152 K/uL (130-400); RDW Standard Deviation 61.2 fL (36.4-46.3); Red Blood Count 3.61 M/uL (4.2-5.4); White Blood Count 5.88 K/uL (4.8-10.8)
[2021-03-27 08:28] LABS: INR 1.6 (0.9-1.1); Prothrombin Time 15.9 Seconds (9.0-12.0)
[2021-03-27 08:39] LABS: BUN Creatinine Ratio 33.8 (10-20); Calcium 9.7 mg/dl (8.5-10.1); Creatinine Clr Calc Pharmacy 23.8 ml/min; Est GFR (Non-African American) 20.7 ml/min; Magnesium 2.5 mg/dl (1.8-2.4); Potassium 3.8 mmol/L (3.5-5.1)
[2021-03-27] MEDS ORDERED: ISOSORBIDE MONO EXTENDED REL 30 MG TABCR PO SCH (09:00)
[2021-03-27] MEDS: CALCITRIOL 0.25 MCG CAPSULE PO SCH (09:39)
[2021-03-27] MEDS: PANTOprazole 40 MG TAB PO SCH (09:39)
[2021-03-27] MEDS: guaiFENesin 600 MG TABCR PO SCH (09:39)
[2021-03-27] MEDS: DULoxetine HCL 30 MG CAP PO SCH (09:39)
[2021-03-27] MEDS: FEXOFENADINE HCL 180 MG TAB PO SCH (09:40)
[2021-03-27] MEDS: allopurinoL 100 MG TAB PO SCH (09:40)
[2021-03-27] MEDS: AZELASTINE SCH (09:41)
[2021-03-27] MEDS: DICLOFENAC SOD 1% GEL 100 GM TUBE EXT SCH ×2 (09:41→13:06)
[2021-03-27] MEDS: POTASSIUM CHLORIDE CRTAB 20 MEQ TABCR PO SCH (09:41)
[2021-03-27] MEDS: FENOFIBRIC ACID PO SCH (09:42)
[2021-03-27] MEDS: NYSTATIN CR 15 GM TUBE EXT SCH (09:43)
[2021-03-27] MEDS: INSULIN GLARGINE SOLOSTAR 100 UNITS/ML 3 ML PEN SC SCH (09:45)
[2021-03-27] MEDS: INSULIN ASPART 100 UNITS/ML 3 ML PEN SC SCH ×2 (09:46→13:07)
[2021-03-27] MEDS: DOCUSATE SODIUM 100 MG CAP PO SCH ×2 (09:49→13:11)
[2021-03-27] MEDS: POLYETHYLENE (MIRALAX) 17 GM PACK PO SCH (09:51)
[2021-03-27] MEDS ORDERED: WARFARIN SOD 2.5 MG TAB PO SCH (16:00)
--- NOTE | 2021-03-27 17:51 | Discharge Summary ---
Date of Service March 27, 2021 Admission HPI Per Admitting Provider The patient is a 75-year-old female with a past medical history including diabetic peripheral neuropathy, tracheal stenosis, PAF, pressure ulcer, uncontrolled diabetes mellitus type 2, long-term use of anticoagulants, allergic rhinitis, asthma, depression, dyslipidemia, hypertension, GERD, lichen sclerosis, left thyroid nodule, obesity, TAMMIE, subglottal stenosis, chronic venous insufficiency, CKD stage IV, HFpEF and hypothyroidism. Patient presents to the emergency department with worsening shortness of breath and dyspnea on exertion at shorter and shorter distances. She did undergo a procedure recently at [facility] for tracheal stenosis. Work-up in the emergency department included the following significant abnormalities: Hemoglobin 8.5, hematocrit 27.5, creatinine 2.39, glucose 242, BUN 87, INR 1.47, AST 121, ALT 91, albumin 3.1 and BNP 1990. The patient was COVID-19 negative this evening. Chest x-ray showed pulmonary vascular congestion. Principal Diagnosis CHF exacerbation Discharge Exam Constitutional WD/WN, vitals as above Eyes EOM intact bilaterally; no conjunctival abnormality ENMT external ear and nose normal, oropharynx normal Neck trachea midline, no thyromegaly normal visual inspection Respiratory normal respiratory effort, lungs clear to auscultation no respiratory distress Cardiovascular RRR, no murmur, no edema Rate/Rhythm: regular rate and regular rhythm Extremities: + edema Gastrointestinal (Abdomen) Inspection/Auscultation: abdomen normal to inspection; abdomen not distended Musculoskeletal no cyanosis or clubbing, extremities motor strength 5/5 Skin no rashes, warm and dry Neurologic moves all extremities and awake Psychiatric Orientation: alert, oriented to person and cooperative Discharge Data Allergies Allergy/AdvReac Type Severity Reaction Status Date / Time clarithromycin Allergy Intermediate RASH AND Verified 03/07/21 18:56 ITCHING Consultations 03/07/21 20:58 ED Decision to Admit Stat 03/08/21 13:58 Consult Pulmonology Routine 03/08/21 14:13 Consult Nephrology Routine 03/20/21 12:47 [facility] CHF Program Referral Routine Ordered Studies 03/09/21 13:00 FL video swallow Routine Hospital Course (1) Acute on chronic heart failure with preserved ejection fraction (HFpEF): EF was 55 - 60% on 03/08 with mild LVH. - Stopped beta-sharon today for continued lower-normal BP and bradycardia. - Not ACEi or ARB candidate due to CKD. - Presently appears euvolemic. Discharge weight was 107.7 kg. - Discharged on Bumex 2 mg PO daily. Will follow up with Ms. Hearn. (2) CKD (chronic kidney disease), stage IV: Baseline Cr 1.9 to 2.6. - Cr was back down to 2.2 on discharge. (3) Paroxysmal atrial fibrillation: NSR on tele while on telemetry. - Held beta-sharon as above. - INR 1.6 on discharge. Was on warfarin 2 mg PO daily here; discharged on her home 2.5 mg. - Repeat INR in 3-4 days. (4) Diabetes type 2, uncontrolled: A1c was 8.8% this admission. - Continue NovoLog with Lantus. - Blood sugars have been 130 - 160. (5) Nonsustained ventricular tachycardia: 11-beat run 03/14/21 (morning) while exercising/working with PT. She is a poor historian but did seem to have had symptoms from this during the PT. - Lexiscan nuclear stress test NEGATIVE for ischemia was reported by a prior provider, but it was not done here. I'm not sure where this report came from. (6) Iron deficiency anemia: Completed 5-day course of daily Venofer. - CBC today stable at 10.0. (7) Stenosis of trachea: Tracheal stenosis/subglottic stenosis - Status post recent procedure at [facility] for such. - Follows with Dr Mondragon locally. (8) SGS (subglottic stenosis): See above (9) Asthma: No exacerbation at this time. - Cont albuterol QID (10) Depression: No overt depression today. - Continue duloxetine 30 mg daily (11) Essential hypertension: BP has been very variable: Highs of 170/75. Lows in the 90/50 range. - Held beta-sharon due to bradycardia. - Lowered Imdur to daily. (12) Obstructive sleep apnea of adult: - CPAP at bedtime. (13) GERD without esophagitis: - Continue pantoprazole and metoclopramide (14) Hypothyroidism: TSH 7.2 early January; Repeat TSH this admit was also normal. - Continue levothyroxine 88 mcg daily (15) Dyslipidemia: - Continue fenofibric acid and simvastatin/Zetia (16) Oropharyngeal dysphagia: Video swallow showed minimal aspiration this admission. - Swallowing fine on minced/moist diet (17) DVT prophylaxis: Coumadin for paroxysmal afib Total Time Total Time Spent Total Time Spent (In Minutes): 35 Discharge Plan Discharge Items Patient Disposition: Transfer Group Home Fac Reason For Visit: MYKEL,CHF,TRACHEAL STENOSIS,SUPRATHERAPEUTIC INR,ANE Discharge Diagnosis: CHF exacerbation Activity: Resume your previous activity Non-emergency contact: Primary Care Provider and Oxygen Equipment Preparer Call non-emergency contact if: your symptoms worsen Follow-up/Referrals: Alfred Mckeon III, CRNP [Primary Care Provider] - Valerie Hearn PA-C [Physician Radio Rigger] - 04/10/21 2:00 pm (Congestive Heart Failure Program Appointment Information Early follow up is essential to managing your heart failure. An appointment has been scheduled for you with the [facility] Failure Program within 7 days of discharge. Anticipate this visit to be 30-60 minutes long. Please expect a high scaler phone call from one of our nurses approximately 48 hours from discharge. They will also be placing an order for lab work to be completed 1-2 days prior to your heart failure follow up appointment. Please be sure to have this done so we can go over the results when you come in. Office Location The cardiology office building is located in front of the hospital at [address] Bring the following with you to your follow-up doctor appointments: Please bring your daily weight log any discharge paperwork all of your medication bottles with you to this visit. ) Diet: Heart Healthy and Low Sodium (2gm) Addtl Attending Provider Instructions: Doing well overall. Presently seems to be near baseline weight on discharge. She is at 107.7 kg presently. She needed higher dose diuretics at first, but by discharge, was down to Bumex 2 mg PO daily. Ms. Haern will follow with her CHF. Med changes: 1) Used much less insulin in the hospital with the smaller meals and fewer snacks. 2) Stopped all beta-sharon because of bradycardia. 3) Made Imdur only once per day as TID never gives a nitroglycerin holiday and builds tolerance. 4) Lowered Bumex as she likely had lower salt intake here. IMPORTANT NOTE: Her sisters feel due to her intellectual difficulties that they should be notified of any significant medication changes. Addtl Paint Mixer Hand Provider Instructions: Call your Primary Care doctor if any of the following symptoms or problems start or get worse: * Shortness of breath or difficulty breathing * Wake up at night short of breath * Chest pain * Cough * Swelling of your hands, feet, or legs * More fatigued or tired with your normal activity * Palpitations - sudden fast heart beats WEIGHT * Weigh yourself every morning after using the bathroom. * Use the same scale. * Wear the same amount of clothing. * Write your weight down on a chart. * Call your Primary Care doctor if you gain more than 2-3 pounds in 1-2 days. MEDICATIONS * Use this discharge instruction sheet for medication instructions. * Take your medications at the time your doctor ordered. * Do not skip a dose of your medicines. * If you miss a dose of medicine, take it as soon as possible, but DO NOT DOUBLE A DOSE. * Read your medicine information when you get home. * Know all of the side effects of your medicine. If in doubt, ask your pharmacist * Call your Primary Care doctor's office if you have any side effects. * Be sure all of your doctors know what medicine and herbs you take (including cold, flu, and herbal medicine). Take the following with you to your follow-up doctor appointments: * Weight Chart * Medication List * List of questions Do not drink excessive alcohol, beer or wine. Pending Studies at Discharge: No Stand-Alone Forms: My [facility] Skilled Items Patient informed of condition?: No DNR: Yes Discharge Level of Care: Skilled Communicable Disease: No Discharge Prognosis: Stable Lines: None Urinary Catheter: No Medications and DC Order Prescriptions: Continued cranberry fruit concentrate [Azo Cranberry] 250 mg tablet,chewable 500 mg PO QDL RF: 0 nitroglycerin [Nitrostat] 0.4 mg Tablet, Sublingual 0.4 mg UT UD PRN (Reason: Chest Pain) Qty: 0 RF: 0 azelastine 137 mcg (0.1 %) aerosol,spray 2 sprays INTNAS BID Qty: 90 RF: 1 metoclopramide HCl [Reglan] 10 mg tablet 10 mg PO QPM Qty: 90 RF: 1 fenofibric acid (choline) [Trilipix] 135 mg capsule,delayed release(DR/EC) 135 mg PO QAM Qty: 90 RF: 1 duloxetine [Cymbalta] 30 mg capsule,delayed release(DR/EC) 30 mg PO QAM Qty: 90 RF: 1 allopurinol [Zyloprim] 100 mg tablet 100 mg PO QAM Qty: 90 RF: 1 (DME) pen needle, diabetic [BD Ultra-Fine Mini Pen Needle] 31 gauge x 3/16" needle See Dose Instructions .ROUTE .MEDSUPPLY Qty: 500 RF: 1 levalbuterol tartrate [Xopenex HFA] 45 mcg/actuation HFA aerosol inhaler 1 - 2 inh INH Q4H PRN (Reason: shortness of breath or wheezing) Qty: 15 RF: 2 ezetimibe-simvastatin [Vytorin 10-40] 10-40 mg tablet 1 tab PO HS Qty: 90 RF: 1 clonazepam [Klonopin] 0.5 mg tablet 0.5 mg PO HS Qty: 30 RF: 2 levothyroxine [Synthroid] 88 mcg tablet 88 mcg PO DAILY Qty: 30 RF: 2 ergocalciferol (vitamin D2) 1,250 mcg (50,000 unit) capsule 50,000 unit PO Q14D Qty: 6 RF: 3 potassium chloride [Klor-Con M20] 20 mEq tablet,ER particles/crystals 20 meq PO DAILY Qty: 90 RF: 1 ipratropium-albuterol 0.5 mg-3 mg(2.5 mg base)/3 mL solution for nebulization 3 ml inhalation QID PRN (Reason: wheezing) Qty: 90 RF: 1 calcitriol 0.5 mcg capsule 0.5 mcg PO DAILY Qty: 90 RF: 3 (DME) OneTouch Ultra Blue Test Strip Strip See Dose Instructions .ROUTE .MEDSUPPLY Qty: 400 RF: 1 pantoprazole [Protonix] 40 mg tablet,delayed release (DR/EC) 40 mg PO DAILY Qty: 90 RF: 3 docusate sodium [Colace] 100 mg capsule 100 mg PO QID RF: 0 fexofenadine [Marie Allergy] 180 mg tablet 180 mg PO QAM RF: 0 (DME) lancets [OneTouch Delica Lancets] 33 gauge misc See Dose Instructions .ROUTE .MEDSUPPLY Qty: 100 RF: 0 terconazole 0.4 % cream 1 appl PV DAILY PRN (Reason: Rash) Qty: 45 RF: 4 desonide 0.05 % cream 1 applic topical BID Qty: 60 RF: 0 insulin aspart U-100 [Novolog Flexpen U-100 Insulin] 100 unit/mL (3 mL) insulin pen 3 - 6 unit SUBCUT ACHS RF: 0 warfarin 5 mg Tablet 2.5 mg PO UD RF: 0 betamethasone dipropionate 0.05 % cream 1 applic topical Q OTHER DAY PRN (Reason: skin irritation) RF: 0 Changed bumetanide 2 mg tablet 2 mg PO QAM 90 Days Qty: 180 RF: 3 isosorbide mononitrate 30 mg tablet extended release 24 hr 30 mg PO QAM Qty: 270 RF: 1 Basaglar KwikPen U-100 Insulin 100 unit/mL (3 mL) insulin pen 40 unit SC DAILY Qty: 0 RF: 0 Discontinued metoprolol tartrate 25 mg tablet 25 mg PO QAM Qty: 90 RF: 1 Discharge Orders: Discharge Order (Routine); Ordered 03/27/21 Ordered By: Anup Bhagat/Other Patient Handouts: Managing Type 2 Diabetes, A1C Admission Data Admit Date/Time: 03/07/21 21:57 Attending Provider: Anup Orta Admit Provider: Mello Thompson Primary Care Provider: Alfred Mckeon III Other Providers: [facility] ; [facility] ; Anup Orta ; Mello Thompson ; Alfredo Valle ; Veronique Quinonez ; Valerie Hearn Other Interventions: Discharge Summary Assessment (RN) Last Done: 03/27/21 13:56 Coding Level of Care Code D/C Day Management >30 mins Diagnoses Acute on chronic heart failure with preserved ejection fraction (HFpEF) I50.33 CKD (chronic kidney disease), stage IV N18.4 Paroxysmal atrial fibrillation I48.0 Diabetes type 2, uncontrolled E11.65 Glycemic state: with hyperglycemia Nonsustained ventricular tachycardia I47.2 Iron deficiency anemia D50.8 Iron deficiency anemia type: other iron deficiency Stenosis of trachea J39.8 SGS (subglottic stenosis) J38.6 Asthma J45.40 Asthma severity: moderate Asthma persistence: persistent Asthma complication type: uncomplicated Depression F32.9 Depression Type: major depressive disorder Major depression recurrence: unspecified whether recurrent Active/Remission status: remission status unspecified Essential hypertension I10 Obstructive sleep apnea of adult G47.33 GERD without esophagitis K21.9 Hypothyroidism E03.9 Hypothyroidism type: unspecified Dyslipidemia E78.5 Oropharyngeal dysphagia R13.12 DVT prophylaxis Z29.9
== END 2021-03-27 15:09 | DRG 291 ==
LOC: ED 18:06 → 2S 21:57 → SUATTDRO 21:57 → 2S 03-08 00:20 → 3N 03-23 17:28
DX: Z68.42 Body mass index [BMI] 45.0-49.9, adult; R13.12 Dysphagia, oropharyngeal phase; Z20.822 Contact with and (suspected) exposure to COVID-19; K21.9 Gastro-esophageal reflux disease without esophagitis; D50.9 Iron deficiency anemia, unspecified; E03.9 Hypothyroidism, unspecified; G47.33 Obstructive sleep apnea (adult) (pediatric); E11.22 Type 2 diabetes mellitus with diabetic chronic kidney disease; E78.5 Hyperlipidemia, unspecified; R79.1 Abnormal coagulation profile; F79 Unspecified intellectual disabilities; N18.4 Chronic kidney disease, stage 4 (severe); N25.81 Secondary hyperparathyroidism of renal origin; J98.4 Other disorders of lung; R74.01 Elevation of levels of liver transaminase levels; R07.89 Other chest pain; Z79.899 Other long term (current) drug therapy; J38.6 Stenosis of larynx; Z86.711 Personal history of pulmonary embolism; Z66 Do not resuscitate; E66.01 Morbid (severe) obesity due to excess calories; E11.42 Type 2 diabetes mellitus with diabetic polyneuropathy; Z79.890 Hormone replacement therapy; I47.2 Ventricular tachycardia; I48.0 Paroxysmal atrial fibrillation; Z79.4 Long term (current) use of insulin; Z79.01 Long term (current) use of anticoagulants; Z86.718 Personal history of other venous thrombosis and embolism; J45.909 Unspecified asthma, uncomplicated; J39.8 Other specified diseases of upper respiratory tract; F32.9 Major depressive disorder, single episode, unspecified; I13.0 Hypertensive heart and chronic kidney disease with heart failure and stage 1 through stage 4 chronic kidney disease, or unspecified chronic kidney disease; Z88.1 Allergy status to other antibiotic agents; I50.33 Acute on chronic diastolic (congestive) heart failure

== ENCOUNTER 2021-04-08 11:40 | Inpatient (IN) ==
--- NOTE | 2021-04-08 12:10 | Emergency Department Note ---
Impression & Plan Chronic diastolic (congestive) heart failure, CARR (dyspnea on exertion), Chest pain, Hypoglycemia ED Provider Note NAME: KRYSTAL LESLIE AGE: 75 SEX: F : 1945 ARRIVES VIA: Ambulance INFORMANT: Patient, nursing staff ED PROVIDER(S): Franco Espinal DO CHIEF COMPLAINT: Shortness of breath HPI: The patient is a 75-year-old female who presented to the emergency department for an evaluation of shortness of breath. The patient has been noticing shortness of breath and dyspnea on exertion. She is also noticed generalized weakness and weight gain. The patient states she was recently admitted to our facility for similar complaints. At that time she was discharged to a group home. Over the course the last week she has had experienced weight gain. The outpatient group home physician has been giving the patient Bumex and extra doses to try to deal with her weight gain and shortness of breath. The patient has a longstanding history of CHF and felt that this was consistent with her CHF. She has had no palpitations. She has had lower extremity swelling and redness. She started noticing chest pain last evening which she describes as a substernal discomfort. She was sent to the emergency department today for further evaluation via ambulance. ROS: See above HPI for pertinent positives & negatives. A total of 10 systems reviewed and were otherwise negative. PAST MEDICAL HISTORY: See Below PAST SURGICAL HISTORY: See Below FAMILY HISTORY: See Below SOCIAL HISTORY: See Below HOME MEDICATIONS: See Below ALLERGIES: See Below VITALS: See Below PHYSICAL EXAMINATION: GENERAL: The patient is awake and alert. She is somewhat frail appearing but appears comfortable. EYES: The conjunctivae are clear. The pupils are round and reactive. EARS, NOSE, MOUTH AND THROAT: The nose is without any evidence of any deformity. NECK: The neck is nontender and supple. RESPIRATORY: Shallow respirations were noted. Diminished breath sounds are noted throughout. Rales are noted at both bases. CARDIOVASCULAR: Very distant heart sounds were noted. Regular rate and rhythm was noted to auscultation. There is no definite murmur. GASTROINTESTINAL: The abdomen is soft. Abdomen is nontender. MUSCULOSKELETAL/EXTREMITIES: There is no evidence of gross deformity full range of motion is noted in the hips and shoulders. SKIN: Skin is warm and dry. Pedal edema was noted bilaterally. There was venous stasis changes noted bilaterally. NEUROLOGIC: Patient is awake alert and oriented x3. MEDICAL DECISION MAKING: The patient is a 75-year-old female who presented to the emergency department for weight gain and difficulty breathing. The patient has a history of CHF and was discharged more facility recently. The patient returns after receiving mu ltiple doses of IV Bumex at the group home with weight gain and shortness of breath. I discussed patient's laboratory and radiographic studies with her. She was not hypoxic but given her overall condition and findings she was treated with IV Lasix in the emergency department as well as IV albumin. [facility] agreed to evaluate the patient in the emergency department for further management and disposition. Triage Nursing notes reviewed. Prior medical records reviewed Vital Signs: reviewed and remarkable for elevated blood pressure. Differential diagnosis: Reactive airway disease, pneumonia, pneumothorax, COPD, CHF, infections, cardiac ischemia, pulmonary embolism, musculoskeletal, gastrointestinal, as well as other pathologies. ER treatment provided: See below Diagnostics interpreted by me: ECG: EKG was obtained in the emergency department. My interpretation is sinus rhythm at 62 bpm. First-degree AV block was noted. Left bundle branch block pattern was favored. LVH was noted by voltage criteria. This was compared to a tracing from March 302020. No significant changes were noted. Cardiac Monitoring: An order was placed for continuous cardiac monitoring. The monitor shows a rate of 65 bpm with sinus rhythm. Laboratory studies: As stated above and show below. Imaging studies: See below Consultation(s): I discussed this case with Saundra Vaughan who [facility] They will evaluate the patient in the emergency department. Past Med/Surg History Medical History Acute osteomyelitis Cataract CHF (congestive heart failure) Chronic anemia Constipation Decubitus ulcer Diabetic foot ulcer Encounter for health maintenance examination Gastric ulcer Gastroparesis Gout, joint Herpes zoster Hiatal hernia Influenza A Pneumonia Secondary hyperparathyroidism of renal origin Stasis ulcer Stenosis of trachea Vaginitis Surgical History H/O adenoidectomy H/O hand surgery H/O knee surgery H/O: hysterectomy Hx of salpingo-oophorectomy, bilateral S/P tonsillectomy Family History Father Emphysema, unspecified Sister Uterine cancer Ovarian cancer Other Liver cancer Denies family history of Colon cancer Pancreatic cancer Prostate cancer Myocardial infarction Breast cancer Bleeding disorder Colorectal cancer Social History Smoking Status: Never smoker Second Hand Exposure: No; Hx Alcohol Use: No Hx Substance Use: No Preferred Language: Malay Communication Ability: Effective Visual Impairment: Limited Hearing Ability: Normal Paver Required: No Beliefs That Will Affect Care: None marital status: Single Current Living Situation: Alone current occupational status: retired How many Children do You have: 0 Feels Safe at Home: Yes Childhood Exposure to Second-Hand Smoke: No Dental Care, Regularly: Yes Physical Activity Frequency: Does not Exercise Seatbelt Use: always Sunscreen Use: No Do you think of yourself as: straight/heterosexual Assistive Devices: Walker Allergies Allergies Allergy/AdvReac Type Severity Reaction Status Date / Time clarithromycin Allergy Intermediate RASH AND Verified 04/08/21 13:30 ITCHING Home Meds Home Medications Medication Instructions Recorded Confirmed nitroglycerin [Nitrostat] 0.4 mg UT UD PRN #0 09/28/09 04/08/21 docusate sodium 100 mg capsule 100 mg PO ACHS cap 05/10/19 04/08/21 fexofenadine 180 mg tablet 180 mg PO QAM tab 05/10/19 04/08/21 lancets 33 gauge #100 ea 05/10/19 01/26/21 insulin aspart U-100 100 unit/mL 4 unit SUBCUT ACHS ml 01/22/21 04/08/21 (3 mL) subcutaneous pen Basaglar KwikPen U-100 Insulin 40 unit SC BID 03/30/21 04/08/21 acetaminophen [Tylenol] 650 mg PO Q6H PRN MDD 3 GRAMS/24 03/30/21 04/08/21 HOURS atorvastatin 80 mg PO HS 03/30/21 04/08/21 bumetanide [Bumex] 2 mg PO Q24H PRN 03/30/21 04/08/21 cranberry [id number] coag 2 tab PO DAILY 03/30/21 04/08/21 [Azo Cranberry + Probiotic] fenofibrate micronized 200 mg PO DAILY 03/30/21 04/08/21 insulin lispro [Humalog U-100 0 unit SUBCUT DIRECTED PRN 03/30/21 04/08/21 Insulin] levalbuterol tartrate [Xopenex HFA] 2 inh INH Q4H PRN 03/30/21 04/08/21 nystatin 1 applic TOPICAL BID 03/30/21 04/08/21 promethazine [Phenergan] 25 mg IM Q6H PRN 03/30/21 04/08/21 terconazole 1 appl PV DAILY 03/30/21 04/08/21 warfarin [Coumadin] 5 mg PO DAILY 03/30/21 04/08/21 OneTouch Ultra Blue Test Strip 04/08/21 04/08/21 calcitriol 0.5 mcg PO QAM 04/08/21 04/08/21 cefdinir 300 mg PO HS 04/08/21 04/08/21 multivitamin 1 tab PO QAM 04/08/21 04/08/21 pen needle, diabetic [BD 04/08/21 04/08/21 Ultra-Fine Mini Pen Needle] Previous Rx's Medication Instructions Recorded azelastine 137 mcg (0.1 %) nasal 2 sprays INTNAS BID #90 ml 10/28/19 spray aerosol pantoprazole 40 mg tablet,delayed 40 mg PO DAILY #90 tab 08/15/20 release metoclopramide HCl 10 mg tablet 10 mg PO QPM #90 tab 09/26/20 duloxetine 30 mg capsule,delayed 30 mg PO QAM #90 cap 12/06/20 release allopurinol 100 mg tablet 100 mg PO QAM #90 tab 12/21/20 clonazepam 0.5 mg tablet 0.5 mg PO HS #30 tab 03/01/21 levothyroxine 88 mcg tablet 88 mcg PO DAILY #30 tab 03/05/21 ergocalciferol (vitamin D2) 1,250 50,000 unit PO Q14D #6 cap 03/06/21 mcg (50,000 unit) capsule potassium chloride 20 mEq 20 meq PO DAILY #90 tab 03/13/21 tablet,extended release(part/cryst) ipratropium 0.5 mg-albuterol 3 mg 3 ml INHALATION QID PRN #90 ml 03/19/21 (2.5 mg base)/3 mL nebulization soln bumetanide 2 mg PO QAM 90 Days #180 tab 03/27/21 isosorbide mononitrate 30 mg PO QAM #270 tab 03/27/21 Results & Data (ED) Vital Signs Vital Signs - 24 hr 04/08/21 11:44 04/08/21 11:54 04/08/21 12:00 Temperature 36.6 C Temperature Source Oral Pulse Rate 63 62 60 Pulse Rate from SpO2 Sensor 63 60 Pulse Rhythm Respiratory Rate 21 16 18 Respiratory Effort / Characteristics Non-Labored Spontaneous Respiratory Depth Normal Respiratory Pattern Regular Blood Pressure 140/60 140/60 139/59 L Blood Pressure Mean 86 86 85 Blood Pressure Position Lying Pulse Oximetry 98 98 98 Oxygen Delivery Method Nasal Cannula Oxygen Flow Rate 2 Sepsis Recent Fever Within 48 Hours No Sepsis New/Unexplained Change in Mental Status N/A Sepsis Action Taken by Nursing No Action Required 04/08/21 12:15 04/08/21 12:30 04/08/21 13:00 Temperature Temperature Source Pulse Rate 57 L 56 L Pulse Rate from SpO2 Sensor 57 L 57 L Pulse Rhythm Respiratory Rate 16 20 Respiratory Effort / Characteristics Non-Labored Spontaneous Respiratory Depth Normal Respiratory Pattern Regular Blood Pressure 156/62 H 150/65 H Blood Pressure Mean 93 93 Blood Pressure Position Pulse Oximetry 100 100 Oxygen Delivery Method Nasal Cannula Oxygen Flow Rate 2 Sepsis Recent Fever Within 48 Hours Sepsis New/Unexplained Change in Mental Status Sepsis Action Taken by Nursing 04/08/21 13:30 04/08/21 13:46 04/08/21 14:00 Temperature Temperature Source Pulse Rate 55 L 62 65 Pulse Rate from SpO2 Sensor 56 L 65 Pulse Rhythm Regular Respiratory Rate 24 17 Respiratory Effort / Characteristics Respiratory Depth Respiratory Pattern Blood Pressure 151/62 H 153/68 H Blood Pressure Mean 91 96 Blood Pressure Position Pulse Oximetry 99 99 97 Oxygen Delivery Method Room Air Oxygen Flow Rate Sepsis Recent Fever Within 48 Hours Sepsis New/Unexplained Change in Mental Status Sepsis Action Taken by Nursing 04/08/21 14:30 04/08/21 14:40 04/08/21 15:00 Temperature Temperature Source Pulse Rate 61 62 62 Pulse Rate from SpO2 Sensor 61 62 62 Pulse Rhythm Respiratory Rate 14 17 19 Respiratory Effort / Characteristics Respiratory Depth Respiratory Pattern Blood Pressure 160/62 H 163/79 H Blood Pressure Mean 94 107 Blood Pressure Position Pulse Oximetry 98 99 99 Oxygen Delivery Method Oxygen Flow Rate Sepsis Recent Fever Within 48 Hours Sepsis New/Unexplained Change in Mental Status Sepsis Action Taken by Nursing 04/08/21 15:10 Temperature Temperature Source Pulse Rate 65 Pulse Rate from SpO2 Sensor 65 Pulse Rhythm Respiratory Rate 17 Respiratory Effort / Characteristics Respiratory Depth Respiratory Pattern Blood Pressure Blood Pressure Mean Blood Pressure Position Pulse Oximetry 98 Oxygen Delivery Method Oxygen Flow Rate Sepsis Recent Fever Within 48 Hours Sepsis New/Unexplained Change in Mental Status Sepsis Action Taken by Intermediate Medications Current Medication List: was personally reviewed by me Laboratory Data Attestation: I reviewed the patient's lab results. Result diagrams: 04/08/21 12:15 04/08/21 12:15 Lab Results 04/08/21 04/08/21 04/08/21 Range/Units 11:48 12:00 12:00 WBC (4.8-10.8) K/uL RBC (4.2-5.4) M/uL Hgb (12.0-16.0) g/dL Hct (37-47) % MCV (80-100) fL MCH (25-34) pg MCHC (32-36) g/dL RDW Std Deviation (36.4-46.3) fL RDW Coeff of Melonie (11.5-14.5) % Plt Count (130-400) K/uL MPV (7.4-10.4) fL Immature Gran % (Auto) % Neut % (Auto) % Lymph % (Auto) % [place] % (Auto) % Eos % (Auto) % Baso % (Auto) % Neut # (Auto) (1.4-6.5) K/uL Lymph # (Auto) (1.2-3.4) K/uL [place] # (Auto) (0.11-0.59) K/uL Eos # (Auto) (0-0.5) K/uL Baso # (Auto) (0-0.2) K/uL Immature Gran # (Auto) (0.00-0.02) K/uL PT (9.0-12.0) Seconds INR (0.9-1.1) APTT (21.0-31.0) Seconds PTT Ratio Sodium (136-145) mmol/L Potassium (3.5-5.1) mmol/L Chloride (98-107) mmol/L Carbon Dioxide (21-32) mmol/L Anion Gap (3-11) BUN (7-18) mg/dl Creatinine (0.6-1.2) mg/dl Est Cr Clr Drug Dosing ml/min Est GFR ( Amer) ml/min Est GFR (Non-Af Amer) ml/min BUN/Creatinine Ratio (10-20) Glucose (70-99) mg/dl POC Glucose 43 L* (70-99) mg/dl Calcium (8.5-10.1) mg/dl Magnesium (1.8-2.4) mg/dl Total Bilirubin (0.2-1) mg/dl AST (15-37) U/L ALT (12-78) U/L Alkaline Phosphatase (45-117) U/L Troponin I (0-0.045) ng/ml NT-Pro-B Natriuret Pep (0-1800) pg/ml Total Protein (6.4-8.2) gm/dl Albumin (3.4-5.0) gm/dl Globulin (2.5-4.0) gm/dl Albumin/Globulin Ratio (0.9-2) COVID-19 Eval Order Covid19 at [facility] SARS-CoV-2 (PCR) NEGATIVE (Negative) 04/08/21 04/08/21 04/08/21 Range/Units 12:07 12:15 12:15 WBC 7.15 (4.8-10.8) K/uL RBC 3.93 L (4.2-5.4) M/uL Hgb 10.9 L (12.0-16.0) g/dL Hct 35.7 L (37-47) % MCV 90.8 (80-100) fL MCH 27.7 (25-34) pg MCHC 30.5 L (32-36) g/dL RDW Std Deviation 65.9 H (36.4-46.3) fL RDW Coeff of Melonie 19.8 H (11.5-14.5) % Plt Count 196 (130-400) K/uL MPV 9.9 (7.4-10.4) fL Immature Gran % (Auto) 1.3 % Neut % (Auto) 64.1 % Lymph % (Auto) 16.4 % [place] % (Auto) 9.5 % Eos % (Auto) 8.3 % Baso % (Auto) 0.4 % Neut # (Auto) 4.59 (1.4-6.5) K/uL Lymph # (Auto) 1.17 L (1.2-3.4) K/uL [place] # (Auto) 0.68 H (0.11-0.59) K/uL Eos # (Auto) 0.59 H (0-0.5) K/uL Baso # (Auto) 0.03 (0-0.2) K/uL Immature Gran # (Auto) 0.09 H (0.00-0.02) K/uL PT (9.0-12.0) Seconds INR (0.9-1.1) APTT (21.0-31.0) Seconds PTT Ratio Sodium 144 (136-145) mmol/L Potassium 3.7 (3.5-5.1) mmol/L Chloride 106 (98-107) mmol/L Carbon Dioxide 34 H (21-32) mmol/L Anion Gap 4.0 (3-11) BUN 34 H (7-18) mg/dl Creatinine 1.82 H (0.6-1.2) mg/dl Est Cr Clr Drug Dosing 30.7 ml/min Est GFR ( Amer) 30.5 ml/min Est GFR (Non-Af Amer) 26.3 ml/min BUN/Creatinine Ratio 18.7 (10-20) Glucose 65 L (70-99) mg/dl POC Glucose 64 L* (70-99) mg/dl Calcium 8.9 (8.5-10.1) mg/dl Magnesium 1.9 (1.8-2.4) mg/dl Total Bilirubin 0.5 (0.2-1) mg/dl AST 23 (15-37) U/L ALT 20 (12-78) U/L Alkaline Phosphatase 37 L (45-117) U/L Troponin I < 0.015 (0-0.045) ng/ml NT-Pro-B Natriuret Pep 1618 (0-1800) pg/ml Total Protein 6.5 (6.4-8.2) gm/dl Albumin 2.9 L (3.4-5.0) gm/dl Globulin 3.6 (2.5-4.0) gm/dl Albumin/Globulin Ratio 0.8 L (0.9-2) COVID-19 Eval Order SARS-CoV-2 (PCR) (Negative) 04/08/21 04/08/21 Range/Units 12:30 12:45 WBC (4.8-10.8) K/uL RBC (4.2-5.4) M/uL Hgb (12.0-16.0) g/dL Hct (37-47) % MCV (80-100) fL MCH (25-34) pg MCHC (32-36) g/dL RDW Std Deviation (36.4-46.3) fL RDW Coeff of Melonie (11.5-14.5) % Plt Count (130-400) K/uL MPV (7.4-10.4) fL Immature Gran % (Auto) % Neut % (Auto) % Lymph % (Auto) % [place] % (Auto) % Eos % (Auto) % Baso % (Auto) % Neut # (Auto) (1.4-6.5) K/uL Lymph # (Auto) (1.2-3.4) K/uL [place] # (Auto) (0.11-0.59) K/uL Eos # (Auto) (0-0.5) K/uL Baso # (Auto) (0-0.2) K/uL Immature Gran # (Auto) (0.00-0.02) K/uL PT 20.1 H (9.0-12.0) Seconds INR 2.1 H (0.9-1.1) APTT 31.7 H (21.0-31.0) Seconds PTT Ratio 1.2 Sodium (136-145) mmol/L Potassium (3.5-5.1) mmol/L Chloride (98-107) mmol/L Carbon Dioxide (21-32) mmol/L Anion Gap (3-11) BUN (7-18) mg/dl Creatinine (0.6-1.2) mg/dl Est Cr Clr Drug Dosing ml/min Est GFR ( Amer) ml/min Est GFR (Non-Af Amer) ml/min BUN/Creatinine Ratio (10-20) Glucose (70-99) mg/dl POC Glucose 77 (70-99) mg/dl Calcium (8.5-10.1) mg/dl Magnesium (1.8-2.4) mg/dl Total Bilirubin (0.2-1) mg/dl AST (15-37) U/L ALT (12-78) U/L Alkaline Phosphatase (45-117) U/L Troponin I (0-0.045) ng/ml NT-Pro-B Natriuret Pep (0-1800) pg/ml Total Protein (6.4-8.2) gm/dl Albumin (3.4-5.0) gm/dl Globulin (2.5-4.0) gm/dl Albumin/Globulin Ratio (0.9-2) COVID-19 Eval Order SARS-CoV-2 (PCR) (Negative) Administered Medications Discontinued Medications Furosemide (Furosemide 40 Mg/4 Ml Vial) 80 mg IV NOW STA Stop: 04/08/21 13:55 Last Admin: 04/08/21 14:00 Dose: 80 mg Documented by: [id number] Albumin Human (Albumin 25%) 12.5 gm in 50 mls @ 50 mls/hr IV Q1H HAYDE Stop: 04/08/21 16:14 Last Admin: 04/08/21 15:27 Dose: 50 mls/hr Documented by: [id number] Infusion: 04/08/21 15:27 Dose: 50 mls/hr Documented by: [id number] Admin: 04/08/21 14:39 Dose: 50 mls/hr Documented by: [id number] Imaging Data Radiologist's Impression: Chest X-Ray 04/08/21 11:58 SINGLE VIEW CHEST CLINICAL HISTORY: Dyspnea. FINDINGS: An AP, portable, upright chest radiograph is compared to study dated 03/30/2021. The heart is enlarged noting atherosclerotic calcification of the thoracic aorta. The pulmonary vasculature is noncongested. Chronic interstitial thickening is similar to previous. No airspace consolidation or large pleural effusion is identified. Scarring/atelectasis is noted at the lung bases. No pneumothorax is seen. The skeletal structures are osteopenic. The bony thorax is grossly intact. Calcific tendinopathy is noted in the left shoulder. IMPRESSION: Cardiomegaly with no acute cardiopulmonary abnormality. ACT 112: Negative or not required by law. Electronically signed by: Иван Jackson M.D. 04/08/2021 12:53 PM Discharge Plan Visit Data Chief Complaint: Shortness of Breath/Dyspnea Stated Complaint: SOB, LOWER LEG EDEMA, ED Provider: Franco Espinal Discharge Problem: Chronic diastolic (congestive) heart failure, CARR (dyspnea on exertion), Chest pain, Hypoglycemia Patient Disposition: Being Evaluated by Hospitalist Condition: Good Forms Stand Alone Forms: My [facility] Prescriptions Prescriptions: No Action nitroglycerin [Nitrostat] 0.4 mg Tablet, Sublingual 0.4 mg UT UD PRN (Reason: Chest Pain) Qty: 0 RF: 0 azelastine 137 mcg (0.1 %) aerosol,spray 2 sprays INTNAS BID Qty: 90 RF: 1 metoclopramide HCl [Reglan] 10 mg tablet 10 mg PO QPM Qty: 90 RF: 1 duloxetine [Cymbalta] 30 mg capsule,delayed release(DR/EC) 30 mg PO QAM Qty: 90 RF: 1 allopurinol [Zyloprim] 100 mg tablet 100 mg PO QAM Qty: 90 RF: 1 clonazepam [Klonopin] 0.5 mg tablet 0.5 mg PO HS Qty: 30 RF: 2 levothyroxine [Synthroid] 88 mcg tablet 88 mcg PO DAILY Qty: 30 RF: 2 ergocalciferol (vitamin D2) 1,250 mcg (50,000 unit) capsule 50,000 unit PO Q14D Qty: 6 RF: 3 potassium chloride [Klor-Con M20] 20 mEq tablet,ER particles/crystals 20 meq PO DAILY Qty: 90 RF: 1 ipratropium-albuterol 0.5 mg-3 mg(2.5 mg base)/3 mL solution for nebulization 3 ml inhalation QID PRN (Reason: wheezing) Qty: 90 RF: 1 pantoprazole [Protonix] 40 mg tablet,delayed release (DR/EC) 40 mg PO DAILY Qty: 90 RF: 3 docusate sodium [Colace] 100 mg capsule 100 mg PO ACHS RF: 0 fexofenadine [Marie Allergy] 180 mg tablet 180 mg PO QAM RF: 0 (DME) lancets [OneTouch Delica Lancets] 33 gauge misc See Dose Instructions .ROUTE .MEDSUPPLY Qty: 100 RF: 0 insulin aspart U-100 [Novolog Flexpen U-100 Insulin] 100 unit/mL (3 mL) in sulin pen 4 unit SUBCUT ACHS RF: 0 atorvastatin 80 mg Tablet 80 mg PO HS RF: 0 acetaminophen [Tylenol] 325 mg Tablet 650 mg PO Q6H MDD 3 GRAMS/24 HOURS PRN (Reason: FEVER > 100/PAIN) RF: 0 bumetanide [Bumex] 2 mg Tablet 2 mg PO Q24H PRN (Reason: CHF/WT GAIN >3 LBS IN 24 HRS.) RF: 0 fenofibrate micronized 200 mg Capsule 200 mg PO DAILY RF: 0 promethazine [Phenergan] 25 mg/mL Solution 25 mg IM Q6H PRN (Reason: NAUSEA/VOMITING) RF: 0 warfarin [Coumadin] 5 mg Tablet 5 mg PO DAILY RF: 0 nystatin 100,000 unit/gram Powder 1 applic TOPICAL BID RF: 0 insulin lispro [Humalog U-100 Insulin] 100 unit/mL Solution 0 unit SUBCUT DIRECTED PRN (Reason: ELEVATED BSG'S) RF: 0 Azo Cranberry + Probiotic 250-30-50 [id number] Tablet 2 tab PO DAILY RF: 0 terconazole 0.4 % cream 1 appl PV DAILY RF: 0 levalbuterol tartrate [Xopenex HFA] 45 mcg/actuation HFA aerosol inhaler 2 inh INH Q4H PRN (Reason: shortness of breath or wheezing) RF: 0 Basaglar KwikPen U-100 Insulin 100 unit/mL (3 mL) insulin pen 40 unit SC BID RF: 0 multivitamin Tablet 1 tab PO QAM RF: 0 calcitriol 0.5 mcg capsule 0.5 mcg PO QAM RF: 0 cefdinir 300 mg capsule 300 mg PO HS RF: 0 (DME) pen needle, diabetic [BD Ultra-Fine Mini Pen Needle] 31 gauge x 3/16" needle .ROUTE .MEDSUPPLY RF: 0 (DME) OneTouch Ultra Blue Test Strip Strip .ROUTE .MEDSUPPLY RF: 0 bumetanide 2 mg tablet 2 mg PO QAM 90 Days Qty: 180 RF: 3 isosorbide mononitrate 30 mg tablet extended release 24 hr 30 mg PO QAM Qty: 270 RF: 1 Referrals Referrals: [facility] [Primary Care Provider] -
[2021-04-08 12:25] LABS: Basophils # (auto) 0.03 K/uL (0-0.2); Basophils % (auto) 0.4 %; Eosinophils # (auto) 0.59 K/uL (0-0.5); Eosinophils % (auto) 8.3 %; Hematocrit (blood only) 35.7 % (37-47); Hemoglobin 10.9 g/dL (12.0-16.0); Immature Granulocytes # (auto) 0.09 K/uL (0.00-0.02); Immature Granulocytes % (auto) 1.3 %; Lymphocytes # (auto) 1.17 K/uL (1.2-3.4); Lymphocytes % (auto) 16.4 %; Mean Corpuscular Hemoglobin 27.7 pg (25-34); Mean Corpuscular Hgb Conc 30.5 g/dL (32-36); Mean Corpuscular Volume 90.8 fL (80-100); Mean Platelet Volume 9.9 fL (7.4-10.4); Monocytes # (auto) 0.68 K/uL (0.11-0.59); Monocytes % (auto) 9.5 %; Neutrophils # (auto) 4.59 K/uL (1.4-6.5); Neutrophils % (auto) 64.1 %; Platelet Count 196 K/uL (130-400); RDW Coefficient of Variation 19.8 % (11.5-14.5); RDW Standard Deviation 65.9 fL (36.4-46.3); Red Blood Count 3.93 M/uL (4.2-5.4); White Blood Count 7.15 K/uL (4.8-10.8)
[2021-04-08 12:42] LABS: Alanine Aminotransferase 20 U/L (12-78); Albumin Level 2.9 gm/dl (3.4-5.0); Aspartate Aminotransferase 23 U/L (15-37); BUN Creatinine Ratio 18.7 (10-20); Blood Urea Nitrogen 34 mg/dl (7-18); Calcium 8.9 mg/dl (8.5-10.1); Carbon Dioxide 34 mmol/L (21-32); Chloride 106 mmol/L (98-107); Creatinine Clr Calc Pharmacy 30.7 ml/min; Est GFR (African American) 30.5 ml/min; Est GFR (Non-African American) 26.3 ml/min; Glucose 65 mg/dl (70-99); Magnesium 1.9 mg/dl (1.8-2.4); Potassium 3.7 mmol/L (3.5-5.1); Sodium 144 mmol/L (136-145)
[2021-04-08 12:47] LABS: Albumin Globulin Ratio 0.8 (0.9-2); Alkaline Phosphatase 37 U/L (45-117); Bilirubin,Total 0.5 mg/dl (0.2-1); Globulin 3.6 gm/dl (2.5-4.0); NT Pro B Type Natriuretic Pept 1618 pg/ml (0-1800); Total Protein 6.5 gm/dl (6.4-8.2); Troponin I < 0.015 ng/ml (0-0.045)
[2021-04-08 12:52] LABS: INR 2.1 (0.9-1.1); Partial Thromboplastin Ratio 1.2; Partial Thromboplastin Time 31.7 Seconds (21.0-31.0); Prothrombin Time 20.1 Seconds (9.0-12.0)
--- NOTE | 2021-04-08 12:55 | XRay Report ---
SINGLE VIEW CHEST CLINICAL HISTORY: Dyspnea. FINDINGS: An AP, portable, upright chest radiograph is compared to study dated 03/30/2021. The heart i s enlarged noting atherosclerotic calcification of the thoracic aorta. The pulmonary vasculature is n oncongested. Chronic interstitial thickening is similar to previous. No airspace consolidation or lar ge pleural effusion is identified. Scarring/atelectasis is noted at the lung bases. No pneumothorax i s seen. The skeletal structures are osteopenic. The bony thorax is grossly intact. Calcific tendinopa thy is noted in the left shoulder. IMPRESSION: Cardiomegaly with no acute cardiopulmonary abnormality. ACT 112: Negative or not required by law. Electronically signed by: Иван Jackson M.D. 04/08/2021 12:53 PM
[2021-04-08] MEDS ORDERED: FUROSEMIDE 40 MG/4 ML VIAL IV STA (13:54)
[2021-04-08] MEDS: ALBUMIN 25% 12.5 GM/50 ML VIAL IV SCH ×2 (14:39→15:27)
--- NOTE | 2021-04-08 16:24 | History & Physical Report ---
Date of Service April 08, 2021 Assessment & Plan (1) Acute on chronic heart failure: Acute on chronic heart failure. Patient has gained 10.2kg since discharge on 03/27/21. Admit to tele observation. Daily weights. Strict I&Os. Morris catheter placed in ED. IV Bumex 2mg BID plus metolazone 2.5mg daily. DM carb consistent, low sodium, heart healthy diet. Limit fluids to 1200ml daily. Atiya Dhiraj with heart failure clinic consulted last admission. She was to follow up with her on Friday as an outpatient. (2) Substernal chest pain: No significant findings on admission. Troponin normal on admission. Has Nitro ordered PRN. On Imdur. EKG in AM. Will monitor. (3) Paroxysmal atrial fibrillation: Beta-sharon discontinued last admission d/t bradycardia. On Coumadin 2.5mg daily. INR today 2.1. Continue to monitor. Admitted to tele. (4) CKD (chronic kidney disease), stage IV: Baseline Cr 1.9 to 2.6. Cr 1.82 on admission. Will monitor while being diuresed. (5) Diabetes type 2, uncontrolled: Last Hgb A1C was 6.5% on 03/08/21. Continue Lantus. BSGs ACHS. Pharmacy requesting glycemic management consult for tighter control. Will order. (6) Iron deficiency anemia: Was given Venofer last admission. H&H stable at 10.9 and 35.7. (7) Oropharyngeal dysphagia: Video swallow showed minimal aspiration last admission. Minced/moist diet. (8) Subglottic stenosis: (9) Stenosis of trachea: Tracheal stenosis/subglottic stenosis.- S/P procedure at [facility] for the issue in February. Follows with Dr. Mondragon locally. (10) Asthma: Stable. Continue Albuterol QID PRN. (11) Depression: Stable. Continue duloxetine 30mg daily. (12) Dyslipidemia: On atorvastatin and fenofibrate. Will continue. (13) Essential hypertension: BP 163/79 on admission. Beta sharon stopped last admission d/t bradycardia. Imdur 30mg daily. Metolazone 2.5mg daily ordered. Hydralazine 10mg IV PRN for SBP >180 or DBP >100. Monitor. (14) GERD without esophagitis: Continue pantoprazole and metoclopramide. (15) Obstructive sleep apnea of adult: CPAP at bedtime. (16) Venous insufficiency (chronic) (peripheral): BLE edema secondary to CHF exacerbation. Patient noted to have erythema and venous stasis changes of the lower extremities. Low suspicion for developing cellulitis of the lower extremities, but would monitor. (17) DVT prophylaxis: On Coumadin (18) Diabetic ulcer of left heel associated with type 2 diabetes mellitus, desai ited to breakdown of skin: Patient has a superficial diabetic ulcer of the left heel. Dress with Aquacel AG and an optifoam daily. Will order waffle boots for heel offloading. (19) Hypothyroidism: Last TSH was 2.690 on 03/12/21. Continue levothyroxine 88mcg daily. History of Present Illness Chief Complaint: SOB and chest pain, weight gain Primary Care Provider: [facility] 75 year old female brought to the [facility] ED today by [facility] for worsening SOB, chest pain, and weight gain. The patient was at [facility] for SNF/rehab. Patient was recently admitted from 03/07/21-03/27/21 for CHF exacerbation. Discharge weight was noted to be 105.9kg. She weighs 116.1kg today. Patient reports onset of SOB and chest pain as last evening. She was discharged on Bumex 2mg daily, and was to f/u with Atiya Hearn at the heart failure clinic on 04/10/21. The patient also notes increasing swelling of the legs with pain and erythema. PMH includes CKD stage IV with baseline Cr of 1.9-2.6, a-fib, type II diabetes, iron deficiency anemia, tracheal stenosis, subglottic stenosis, asthma, depression, HTN, obstructive sleep apnea, GERD, morbid obesity, hypothyroidism, dyslipidemia, DVT, thrombocytopenia, osteopenia, venous insufficiency, allergic rhinitis, and lichen sclerosus. Allergies Allergy/AdvReac Type Severity Reaction Status Date / Time clarithromycin Allergy Intermediate RASH AND Verified 04/08/21 13:30 ITCHING Home Medications Medication Instructions Recorded Confirmed Type nitroglycerin [Nitrostat] 0.4 mg UT UD PRN #0 09/28/09 04/08/21 History docusate sodium 100 mg capsule 100 mg PO ACHS cap 05/10/19 04/08/21 History fexofenadine 180 mg tablet 180 mg PO QAM tab 05/10/19 04/08/21 History lancets 33 gauge #100 ea 05/10/19 01/26/21 History azelastine 137 mcg (0.1 %) nasal 2 sprays INTNAS BID #90 ml 10/28/19 04/08/21 Rx spray aerosol pantoprazole 40 mg tablet,delayed 40 mg PO DAILY #90 tab 08/15/20 04/08/21 Rx release metoclopramide HCl 10 mg tablet 10 mg PO QPM #90 tab 09/26/20 04/08/21 Rx duloxetine 30 mg capsule,delayed 30 mg PO QAM #90 cap 12/06/20 04/08/21 Rx release allopurinol 100 mg tablet 100 mg PO QAM #90 tab 12/21/20 04/08/21 Rx insulin aspart U-100 100 unit/mL 4 unit SUBCUT ACHS ml 01/22/21 04/08/21 History (3 mL) subcutaneous pen clonazepam 0.5 mg tablet 0.5 mg PO HS #30 tab 03/01/21 04/08/21 Rx levothyroxine 88 mcg tablet 88 mcg PO DAILY #30 tab 03/05/21 04/08/21 Rx ergocalciferol (vitamin D2) 1,250 50,000 unit PO Q14D #6 cap 03/06/21 04/08/21 Rx mcg (50,000 unit) capsule potassium chloride 20 mEq 20 meq PO DAILY #90 tab 03/13/21 04/08/21 Rx tablet,extended release(part/cryst) ipratropium 0.5 mg-albuterol 3 mg 3 ml INHALATION QID PRN #90 ml 03/19/21 04/08/21 Rx (2.5 mg base)/3 mL nebulization soln bumetanide 2 mg PO QAM 90 Days #180 tab 03/27/21 04/08/21 Rx isosorbide mononitrate 30 mg PO QAM #270 tab 03/27/21 04/08/21 Rx Basaglar KwikPen U-100 Insulin 40 unit SC BID 03/30/21 04/08/21 History acetaminophen [Tylenol] 650 mg PO Q6H PRN MDD 3 GRAMS/24 03/30/21 04/08/21 History HOURS atorvastatin 80 mg PO HS 03/30/21 04/08/21 History bumetanide [Bumex] 2 mg PO Q24H PRN 03/30/21 04/08/21 History cranberry octa-G-sgpzpyyf coag 2 tab PO DAILY 03/30/21 04/08/21 History [Azo Cranberry + Probiotic] fenofibrate micronized 200 mg PO DAILY 03/30/21 04/08/21 History insulin lispro [Humalog U-100 0 unit SUBCUT DIRECTED PRN 03/30/21 04/08/21 History Insulin] levalbuterol tartrate [Xopenex HFA] 2 inh INH Q4H PRN 03/30/21 04/08/21 History nystatin 1 applic TOPICAL BID 03/30/21 04/08/21 History promethazine [Phenergan] 25 mg IM Q6H PRN 03/30/21 04/08/21 History terconazole 1 appl PV DAILY 03/30/21 04/08/21 History warfarin [Coumadin] 5 mg PO DAILY 03/30/21 04/08/21 History OneTouch Ultra Blue Test Strip 04/08/21 04/08/21 History calcitriol 0.5 mcg PO QAM 04/08/21 04/08/21 History cefdinir 300 mg PO HS 04/08/21 04/08/21 History multivitamin 1 tab PO QAM 04/08/21 04/08/21 History pen needle, diabetic [BD 04/08/21 04/08/21 History Ultra-Fine Mini Pen Needle] Past Med/Surg History Medical History Acute osteomyelitis Cataract CHF (congestive heart failure) Chronic anemia Constipation Decubitus ulcer Diabetic foot ulcer Encounter for health maintenance examination Gastric ulcer Gastroparesis Gout, joint Herpes zoster Hiatal hernia Influenza A Pneumonia Secondary hyperparathyroidism of renal origin Stasis ulcer Stenosis of trachea Vaginitis Surgical History H/O adenoidectomy H/O hand surgery H/O knee surgery H/O: hysterectomy Hx of salpingo-oophorectomy, bilateral S/P tonsillectomy Family History Father Emphysema, unspecified Sister Uterine cancer Ovarian cancer Other Liver cancer Denies family history of Colon cancer Pancreatic cancer Prostate cancer Myocardial infarction Breast cancer Bleeding disorder Colorectal cancer Social History Smoking Status: Never smoker Second Hand Exposure: No; Hx Alcohol Use: No Hx Substance Use: No Preferred Language: Citizen Of [place] Communication Ability: Effective Visual Impairment: Limited Hearing Ability: Normal Activities Leader Required: No Beliefs That Will Affect Care: None marital status: Single Current Living Situation: Senior Living Current Living Situation Comment: [facility] current occupational status: retired How many Children do You have: 0 Other Information That Helps Us Care for You: No Feels Safe at Home: Yes Safety Concerns: Feels Safe At This Time Childhood Exposure to Second-Hand Smoke: No Dental Care, Regularly: Yes Physical Activity Frequency: Does not Exercise Seatbelt Use: always Sunscreen Use: No Do you think of yourself as: straight/heterosexual Assistive Devices: Cane, Denture - Upper and Glasses Review of Systems Constitutional: + weight gain; no fever and no chills Eyes: no worsening vision Ear, Nose, Mouth, Throat: no dizziness Respiratory: + dyspnea Cardiovascular: + chest pain and + dyspnea Gastrointestinal: no abdominal pain, no nausea and no vomiting Psychiatric: no confusion Physical Exam Constitutional: + morbidly obese; no acute distress ENMT: Ears: no hearing impairment Neck: trachea midline, no thyromegaly Respiratory: Auscultation: + rhonchi (bilateral) Cardiovascular: Rate/Rhythm: regular rate and regular rhythm Vessels: no JVD Extremities: + edema Gastrointestinal (Abdomen): Inspection/Auscultation: normal bowel sounds Percussion/Palpation: abdomen soft; abdomen nontender Skin: + wound (superficial diabetic ulcer left heel) erythema of the BLE consistent with venous stasis changes Psychiatric: A+Ox3, euthymic affect Results & Data Results & Data ([facility]) Vital Signs (Past 12 Hours) Vital Signs Temp Pulse Resp BP Pulse Ox 04/08/21 15:10 65 17 98 04/08/21 15:00 62 19 163/79 H 99 04/08/21 14:40 62 17 99 04/08/21 14:30 61 14 160/62 H 98 04/08/21 14:00 65 17 153/68 H 97 04/08/21 13:46 62 99 04/08/21 13:30 55 L 24 151/62 H 99 04/08/21 13:00 56 L 20 150/65 H 100 04/08/21 12:30 57 L 16 156/62 H 100 04/08/21 12:00 60 18 139/59 L 98 04/08/21 11:54 36.6 C 62 16 140/60 98 04/08/21 11:44 63 21 140/60 98 Code Status & VTE Plan Code Status Patient was a DNR/DNI last admission. Her sister Jacqui with her today is a POA. I did ask the patient and her sister today whether they would want mechanical ventilation and intubation, and both reported the patient would like this if it would help her. Will keep her as a DNR with possible mechanical ventilation if needed. I have encouraged the patient's sister to bring her advanced directive to the hospital for our files. VTE Prophylaxis Plan VTE Prophylaxis will be ordered: Yes Supervising Physician Co-Signing Physician Notes Patient was seen and examined independently I discussed the case with Kaz wiggins I reviewed pertinent past medical social family history and also the plan of care and agree with the plan of care. PT is a readmission for heart failure preserved ejection fracture, has weight gain of 10 kg, denies dietary indiscretion or medical indiscretion will be readmitted for diuresis and optimization of medical management cardiac is regular no murmurs, basilar absence of breath sounds and rales peripheral edema Any exceptions will be noted below PG Care Time/CCT Total # of Minutes Spent Total Time Spent with Patient: Total time spent is greater than 50% in coordination of care (as documented) at patient's floor/unit and/or counseling patient: [place] [address] Initial Inpt Care Lvl 2 Patient Type Established Medical Decision Making Moderate Complexity Diagnoses Acute on chronic heart failure I50.9 Substernal chest pain R07.2 Paroxysmal atrial fibrillation I48.0 CKD (chronic kidney disease), stage IV N18.4 Diabetes type 2, uncontrolled E11.65 Glycemic state: with hyperglycemia Iron deficiency anemia D50.8 Iron deficiency anemia type: other iron deficiency Oropharyngeal dysphagia R13.12 Subglottic stenosis J38.6 Stenosis of trachea J39.8 Asthma J45.40 Asthma complication type: uncomplicated Asthma persistence: persistent Asthma severity: moderate Depression F32.9 Active/Remission status: remission status unspecified Depression Type: major depressive disorder Major depression recurrence: unspecified whether recurrent Dyslipidemia E78.5 Essential hypertension I10 GERD without esophagitis K21.9 Obstructive sleep apnea of adult G47.33 Venous insufficiency (chronic) (peripheral) I87.2 DVT prophylaxis Z29.9 Diabetic ulcer of left heel associated with type 2 diabetes mellitus, limited to breakdown of skin E11.621; L97.421 Hypothyroidism E03.9 Hypothyroidism type: unspecified (1) Depression Active/Remission status: remission status unspecified Depression Type: major depressive disorder Major depression recurrence: unspecified whether recurrent Qualified Code(s): F32.9 - Major depressive disorder, single episode, unspecified (2) Hypothyroidism Hypothyroidism type: unspecified Qualified Code(s): E03.9 - Hypothyroidism, unspecified (3) Diabetes type 2, uncontrolled Glycemic state: with hyperglycemia Qualified Code(s): E11.65 - Type 2 diabetes mellitus with hyperglycemia (4) Iron deficiency anemia Iron deficiency anemia type: other iron deficiency Qualified Code(s): D50.8 - Other iron deficiency anemias (5) Asthma Asthma complication type: uncomplicated Asthma persistence: persistent Asthma severity: moderate Qualified Code(s): J45.40 - Moderate persistent asthma, uncomplicated
[2021-04-08] MEDS ORDERED: ONDANSETRON INJ 2 MG/ML 2 ML VIAL IV PRN (17:03)
[2021-04-08] MEDS ORDERED: ALBUT/IPRATROP 3MG/0.5MG NEB 3 ML VIAL INH PRN (17:03)
[2021-04-08] MEDS ORDERED: MAGNESIUM HYDROXIDE SUSP 30 ML UDC PO PRN (17:03)
[2021-04-08] MEDS ORDERED: LEVALBUTEROL TARTRATE 15 GM HFA.AER.AD INH PRN (17:03)
[2021-04-08] MEDS ORDERED: NITROGLYCERIN SL 0.4 MG/TAB TAB SL PRN (17:03)
[2021-04-08] MEDS ORDERED: POLYETHYLENE (MIRALAX) 17 GM PACK PO PRN (17:03)
[2021-04-08] MEDS ORDERED: hydrALAZINE HCL 20 MG/ML VIAL IV PRN (17:14)
[2021-04-08] MEDS ORDERED: PHARMACY GLYCEMIC MGMT CONSULT PRN (17:19)
[2021-04-08 17:43] LABS: Appearance Urine Clear (Clear); Bilirubin Urine Negative (Negative); Blood Urine Negative (Negative); Color Urine Yellow; Glucose Urine UA Negative (Negative); Ketones Urine Negative (Negative); Leukocyte Esterase Urine Negative (Negative); Nitrite Urine Negative (Negative); Protein Urine Negative (Negative); Specific Gravity Urine 1.006 (1.000-1.030); Urobilinogen Urine Negative (Negative)
[2021-04-08] MEDS: BUMETANIDE 2 MG in SYRINGE 0 ML IV SCH (17:44)
[2021-04-08] MEDS: WARFARIN SOD 2.5 MG TAB PO SCH (17:45)
[2021-04-08] MEDS: DOCUSATE SODIUM 100 MG CAP PO SCH ×2 (17:45→20:11)
[2021-04-08] MEDS: INSULIN ASPART 100 UNITS/ML 3 ML PEN SC SCH ×2 (18:16→20:14)
[2021-04-08] MEDS: ACETAMINOPHEN 325 MG TAB PO PRN (19:35)
[2021-04-08] MEDS: clonazePAM 0.5 MG TAB PO SCH (20:10)
[2021-04-08] MEDS: NYSTATIN POWDER 15GM BTL EXT SCH (20:11)
[2021-04-08] MEDS: ATORVASTATIN 40 MG TAB PO SCH (20:12)
[2021-04-08] MEDS: METOCLOPRAMIDE HCL 10 MG TABLET PO SCH (20:12)
[2021-04-09] MEDS: LEVOTHYROXINE SODIUM 88 MCG TABLET PO SCH (05:51)
[2021-04-09 05:59] LABS: Basophils # (auto) 0.02 K/uL (0-0.2); Basophils % (auto) 0.3 %; Eosinophils # (auto) 0.49 K/uL (0-0.5); Eosinophils % (auto) 6.7 %; Hematocrit (blood only) 33.2 % (37-47); Hemoglobin 10.4 g/dL (12.0-16.0); Immature Granulocytes # (auto) 0.05 K/uL (0.00-0.02); Immature Granulocytes % (auto) 0.7 %; Lymphocytes # (auto) 1.54 K/uL (1.2-3.4); Lymphocytes % (auto) 21.1 %; Mean Corpuscular Hemoglobin 27.6 pg (25-34); Mean Corpuscular Hgb Conc 31.3 g/dL (32-36); Mean Corpuscular Volume 88.1 fL (80-100); Mean Platelet Volume 9.9 fL (7.4-10.4); Monocytes # (auto) 0.57 K/uL (0.11-0.59); Monocytes % (auto) 7.8 %; Neutrophils # (auto) 4.62 K/uL (1.4-6.5); Neutrophils % (auto) 63.4 %; Platelet Count 190 K/uL (130-400); RDW Coefficient of Variation 19.9 % (11.5-14.5); RDW Standard Deviation 64.2 fL (36.4-46.3); Red Blood Count 3.77 M/uL (4.2-5.4); White Blood Count 7.29 K/uL (4.8-10.8)
[2021-04-09 06:06] LABS: INR 1.8 (0.9-1.1); Prothrombin Time 17.2 Seconds (9.0-12.0)
[2021-04-09 06:39] LABS: BUN Creatinine Ratio 18.1 (10-20); Calcium 9.1 mg/dl (8.5-10.1); Creatinine Clr Calc Pharmacy 29.2 ml/min; Potassium 3.8 mmol/L (3.5-5.1)
[2021-04-09] MEDS: BUMETANIDE 2 MG in SYRINGE 0 ML IV SCH ×2 (07:41→16:44)
[2021-04-09] MEDS: metOLazone 2.5 MG TABLET PO SCH (07:41)
[2021-04-09] MEDS: PANTOprazole 40 MG TAB PO SCH (07:41)
[2021-04-09] MEDS: MULTIVITAMIN TAB PO SCH (07:41)
[2021-04-09] MEDS: ISOSORBIDE MONO EXTENDED REL 30 MG TABCR PO SCH (07:42)
[2021-04-09] MEDS: allopurinoL 100 MG TAB PO SCH (07:42)
[2021-04-09] MEDS: FEXOFENADINE HCL 180 MG TAB PO SCH (07:42)
[2021-04-09] MEDS: DULoxetine HCL 30 MG CAP PO SCH (07:42)
[2021-04-09] MEDS: CALCITRIOL 0.25 MCG CAPSULE PO SCH (07:42)
[2021-04-09] MEDS: DOCUSATE SODIUM 100 MG CAP PO SCH ×4 (07:43→20:20)
[2021-04-09] MEDS: NYSTATIN POWDER 15GM BTL EXT SCH ×2 (07:43→20:22)
[2021-04-09] MEDS: FENOFIBRATE NANOCRYSTALLIZED 145 MG TABLET PO SCH (07:43)
[2021-04-09] MEDS: POTASSIUM CHLORIDE CRTAB 20 MEQ TABCR PO SCH (07:43)
[2021-04-09] MEDS: INSULIN ASPART 100 UNITS/ML 3 ML PEN SC SCH ×4 (07:45→20:20)
[2021-04-09] MEDS ORDERED: CRANBERRY C BACILLUS COAG PO SCH (09:00)
[2021-04-09] MEDS ORDERED: INSULIN GLARGINE SOLOSTAR 100 UNITS/ML 3 ML PEN SC SCH ×2 (09:00→21:00)
[2021-04-09] MEDS ORDERED: TERCONAZOLE 0.4% CR 45 GM TUBE PV SCH (09:00)
[2021-04-09] MEDS ORDERED: [UNRECOGNIZED DRUG - OTHER] PO SCH (09:00)
[2021-04-09] MEDS: INSULIN GLARGINE SOLOSTAR 100 UNITS/ML 3 ML PEN SC SCH (11:42)
--- NOTE | 2021-04-09 11:44 | Pharmacy Report ---
Pharmacy Glycemic Short Note 2 - Date of Service April 09, 2021 - Glycemic Short BSG Results (Last 24 hours): 04/08/21 04/08/21 04/08/21 11:48 12:07 12:15 Glucose 65 L POC Glucose 43 L* 64 L* 04/08/21 04/08/21 04/09/21 12:45 20:04 05:34 Glucose 89 POC Glucose 77 117 H 04/09/21 04/09/21 07:04 11:11 Glucose POC Glucose 92 136 H OUTPATIENT ANTIDIABETIC REGIMEN: * Lantus 45 units SQ BID * NovoLog 4 units SQ TIDM + SSI * A1c = 6.5% on 03/08/21 ASSESSMENT: * 75yo T2DM female known well to pharmacy from previous admissions/glycemic consults. Most recently just last month * Outpatient regimen is heavily weighted towards basal insulin indicating that it is covering some prandial needs. * Last admission, patient only required ~ 70-100 units of insulin per day split 50% basal : 50% prandial. This dosing was achieved towards the end of the admission since patient was admitted with LOW BSG from too much basal as an outpatient. * Pt low again on admission this admission. Will significantly decrease TDD and basal insulin and titrate based on BSG trends. * Pre-lunch BSG tends to be the highest BSG of the day indicating that aggressive CHO ratio needed at at BF. Will continue similar CF/CR parameters as last admission. PLAN FOR INPATIENT GLYCEMIC CONTROL: * Basal insulin * Lantus 20 units SQ daily in AM - this will likely need increased over the next few days. Last admission patient did well with Lantus ~40 units SQ daily. * Bolus insulin * NovoLog per scale ACHS or Q6hrs while NPO * Goal Range: Low 100 mg/dL - High 140 mg/dL * Correction Factor: 26 mg/dL/unit at BF and 30 at lunch, dinner, and HS * Nutritional / Prandial insulin per carb ratio of 1 unit per 6 grams CHO consumed at BF and 10 at lunch, dinner and HS PLAN FOR DISCHARGE: * Re-distribute insulin regimen at dc. Decrease Lantus and increase NovoLog bolus to prevent LOWs when PO intake changes.
[2021-04-09] MEDS: WARFARIN SOD 2.5 MG TAB PO SCH (16:44)
--- NOTE | 2021-04-09 19:53 | Hospitalist Progress Note ---
Date of Service April 09, 2021 Assessment & Plan (1) Acute on chronic heart failure: Acute on chronic heart failure. Patient has gained 10.2kg since discharge on 03/27/21. Weight has been down 5 pounds -3 L Morris catheter placed in ED. IV Bumex 2mg BID plus metolazone 2.5 DM carb consistent, low sodium, heart healthy diet. Limit fluids to 1200ml daily. heart failure program to follow patient Echo in February showed heart failure preserved ejection fraction (2) Substernal chest pain: No significant findings on admission. None since admission Troponin normal on admission. Remain Imdur. EKG in AM shows no changes. (3) Paroxysmal atrial fibrillation: Beta-sharon discontinued last admission d/t bradycardia. On Coumadin 2.5mg daily (4) CKD (chronic kidney disease), stage IV: Baseline Cr 1.9 to 2.6. Will monitor while being diuresed. (5) Diabetes type 2, uncontrolled: Last Hgb A1C was 6.5% on 03/08/21. Continue Lantus. BSGs ACHS. Pharmacy requesting glycemic management consult for tighter control. Will order. (6) Iron deficiency anemia: Was given Venofer last admission. H&H stable at 10.9 and 35.7. (7) Oropharyngeal dysphagia: Video swallow showed minimal aspiration last admission. Minced/moist diet. (8) Subglottic stenosis: (9) Stenosis of trachea: Tracheal stenosis/subglottic stenosis.- S/P procedure at [facility] for the issue in February. Follows with Dr. Alanna wu. (10) Asthma: Stable. Continue Albuterol QID PRN. (11) Depression: Stable. Continue duloxetine 30mg daily. (12) Dyslipidemia: On atorvastatin and fenofibrate. Will continue. (13) Essential hypertension: BP 163/79 on admission. Beta sharon stopped last admission d/t bradycardia. Imdur 30mg daily. Metolazone 2.5 Hydralazine 10mg IV PRN for SBP >180 or DBP >100. Monitor. (14) GERD without esophagitis: Continue pantoprazole and metoclopramide. (15) Obstructive sleep apnea of adult: CPAP at bedtime. (16) Venous insufficiency (chronic) (peripheral): BLE edema secondary to CHF exacerbation. Patient noted to have erythema and venous stasis changes of the lower extremiti es. Low suspicion for developing cellulitis of the lower extremities, but would monitor. 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 Dress with Aquacel AG and an optifoam daily. Will order waffle boots for heel offloading. (19) Hypothyroidism: Last TSH was 2.690 on 03/12/21. Continue levothyroxine 88mcg daily. Admission and Anticipated Discharge Date Admission Date: April 08, 2021 Subjective pt does feel somewhat better, down 3 liters and 5 pounds, however was up 25 lbs since discharge, will continue to diurese and will need to craft more intense post discharge fluid managment strategy Review of Systems Review of Systems: Mild to moderate distress and fatigue no headache, no visual changes no speech or swallowing issues no chest pain, pressure or palpitations Dyspnea with exertion, no cough or wheezes no abdominal pain, nausea or vomiting, diarrhea or constipation no dysuria, hematuria or frequency no focal joint pain but does have persistent peripheral swelling no back pain, CVA tenderness or radicular pain no bruising, bleeding or rashes no focal signs of weakness or numbness or altered sensation no complaints of anxiety or depression.. Physical Exam Physical Exam: The patient appeared well nourished and normally developed. She is morbidly obese with a BMI of 47 Vital signs as documented. Head exam is normocephalic atraumatic Neck is with difficult to assess JVD, thyromegaly, or carotid bruits. Lungs are diminished at the bases with rales just above Cardiac exam, Rhythm is regular.. No murmurs, rubs or gallops. Abdominal exam reveals normal bowel sounds, soft non tender, no masses Extremities are 2+ edematous and both pedal pulses are present Neurologic exam is alert and oriented, no focal loss of strength or sensation Skin is with bilateral chronic venous stasis changes seen to her lower legs with circumferential erythematous plaques Psychologically is without concerns for anxiety or depression Results & Data Results & Data ([facility]) Vital Signs (Past 12 Hours) Vital Signs Temp Pulse Pulse Resp BP Pulse Ox 04/09/21 19:06 98.8 F 71 18 183/62 H 91 04/09/21 16:57 66 04/09/21 15:48 98.4 F 61 20 132/65 94 04/09/21 11:56 98.8 F 72 20 137/71 93 PG Care Time/CCT Total # of Minutes Spent Total Time Spent with Patient: Total time spent is greater than 50% in coordination of care (as documented) at patient's floor/unit and/or counseling patient: Coding Level of Care Code 56054 Subseq Hosp Care Lvl 3 Diagnoses Acute on chronic heart failure I50.9 Substernal chest pain R07.2 Paroxysmal atrial fibrillation I48.0 CKD (chronic kidney disease), stage IV N18.4 Diabetes type 2, uncontrolled E11.65 Glycemic state: with hyperglycemia Iron deficiency anemia D50.8 Iron deficiency anemia type: other iron deficiency Oropharyngeal dysphagia R13.12 Subglottic stenosis J38.6 Stenosis of trachea J39.8 Asthma J45.40 Asthma severity: moderate Asthma persistence: persistent Asthma complication type: uncomplicated Depression F32.9 Depression Type: major depressive disorder Major depression recurrence: unspecified whether recurrent Active/Remission status: remission status unspecified Dyslipidemia E78.5 Essential hypertension I10 GERD without esophagitis K21.9 Obstructive sleep apnea of adult G47.33 Venous insufficiency (chronic) (peripheral) I87.2 DVT prophylaxis Z29.9 Diabetic ulcer of left heel associated with type 2 diabetes mellitus, limited to breakdown of skin E11.621; L97.421 Hypothyroidism E03.9 Hypothyroidism type: unspecified (1) Diabetes type 2, uncontrolled Glycemic state: with hyperglycemia Qualified Code(s): E11.65 - Type 2 diabetes mellitus with hyperglycemia (2) Iron deficiency anemia Iron deficiency anemia type: other iron deficiency Qualified Code(s): D50.8 - Other iron deficiency anemias (3) Asthma Asthma severity: moderate Asthma persistence: persistent Asthma complication type: uncomplicated Qualified Code(s): J45.40 - Moderate persistent asthma, uncomplicated (4) Depression Depression Type: major depressive disorder Major depression recurrence: unspecified whether recurrent Active/Remission status: remission status unspecified Qualified Code(s): F32.9 - Major depressive disorder, single episode, unspecified (5) Hypothyroidism Hypothyroidism type: unspecified Qualified Code(s): E03.9 - Hypothyroidism, unspecified
[2021-04-09] MEDS: ATORVASTATIN 40 MG TAB PO SCH (20:20)
[2021-04-09] MEDS: clonazePAM 0.5 MG TAB PO SCH (20:20)
[2021-04-09] MEDS: METOCLOPRAMIDE HCL 10 MG TABLET PO SCH (20:22)
[2021-04-10] MEDS: LEVOTHYROXINE SODIUM 88 MCG TABLET PO SCH (05:43)
[2021-04-10 06:41] LABS: Basophils # (auto) 0.03 K/uL (0-0.2); Basophils % (auto) 0.5 %; Eosinophils # (auto) 0.42 K/uL (0-0.5); Eosinophils % (auto) 7.2 %; Hematocrit (blood only) 34.1 % (37-47); Hemoglobin 10.7 g/dL (12.0-16.0); Immature Granulocytes # (auto) 0.05 K/uL (0.00-0.02); Immature Granulocytes % (auto) 0.9 %; Lymphocytes % (auto) 20.5 %; Mean Corpuscular Hemoglobin 28.1 pg (25-34); Mean Corpuscular Hgb Conc 31.4 g/dL (32-36); Mean Corpuscular Volume 89.5 fL (80-100); Mean Platelet Volume 10.1 fL (7.4-10.4); Monocytes # (auto) 0.55 K/uL (0.11-0.59); Monocytes % (auto) 9.4 %; Neutrophils % (auto) 61.5 %; Platelet Count 187 K/uL (130-400); RDW Coefficient of Variation 19.7 % (11.5-14.5); RDW Standard Deviation 64.4 fL (36.4-46.3); Red Blood Count 3.81 M/uL (4.2-5.4); White Blood Count 5.85 K/uL (4.8-10.8)
[2021-04-10 06:55] LABS: INR 1.5 (0.9-1.1); Prothrombin Time 14.4 Seconds (9.0-12.0)
[2021-04-10 07:11] LABS: BUN Creatinine Ratio 17.3 (10-20); Creatinine Clr Calc Pharmacy 26.3 ml/min; Est GFR (African American) 25.8 ml/min; Est GFR (Non-African American) 22.3 ml/min; Potassium 3.5 mmol/L (3.5-5.1)
[2021-04-10] MEDS: ISOSORBIDE MONO EXTENDED REL 30 MG TABCR PO SCH (07:58)
[2021-04-10] MEDS: DOCUSATE SODIUM 100 MG CAP PO SCH ×4 (07:58→21:05)
[2021-04-10] MEDS: POTASSIUM CHLORIDE CRTAB 20 MEQ TABCR PO SCH (07:58)
[2021-04-10] MEDS: FEXOFENADINE HCL 180 MG TAB PO SCH (07:59)
[2021-04-10] MEDS: DULoxetine HCL 30 MG CAP PO SCH (07:59)
[2021-04-10] MEDS: FENOFIBRATE NANOCRYSTALLIZED 145 MG TABLET PO SCH (07:59)
[2021-04-10] MEDS: MULTIVITAMIN TAB PO SCH (07:59)
[2021-04-10] MEDS: CALCITRIOL 0.25 MCG CAPSULE PO SCH (07:59)
[2021-04-10] MEDS: allopurinoL 100 MG TAB PO SCH (07:59)
[2021-04-10] MEDS: PANTOprazole 40 MG TAB PO SCH (07:59)
[2021-04-10] MEDS: NYSTATIN POWDER 15GM BTL EXT SCH ×2 (08:00→21:05)
[2021-04-10] MEDS: INSULIN GLARGINE SOLOSTAR 100 UNITS/ML 3 ML PEN SC SCH (08:00)
[2021-04-10] MEDS: INSULIN ASPART 100 UNITS/ML 3 ML PEN SC SCH ×4 (08:02→21:05)
--- NOTE | 2021-04-10 08:54 | Pharmacy Report ---
Pharmacy Glycemic Short Note 2 - Date of Service April 10, 2021 - Glycemic Short BSG Results (Last 24 hours): 04/09/21 04/09/21 04/09/21 11:11 16:04 20:14 Glucose POC Glucose 136 H 165 H 193 H 04/10/21 04/10/21 05:55 07:07 Glucose 176 H POC Glucose 176 H OUTPATIENT ANTIDIABETIC REGIMEN: * Lantus 45 units SQ BID * NovoLog 4 units SQ TIDM + SSI * A1c = 6.5% on 03/08/21 ASSESSMENT: 04/10/21: * BSGs yesterday of 92, 136, 165, and 193 mg/dL * Received 42 units of insulin (20 units of basal and 22 units of prandial/correctional bolus) * Given upward trend in BSGs throughout the day yesterday, will tighten Novolog parameters today * Fasting BSG of 176 mg/dL this morning - will increase Lantus today 04/09/21 * 75yo T2DM female known well to pharmacy from previous admissions/glycemic consults. Most recently just last month * Outpatient regimen is heavily weighted towards basal insulin indicating that it is covering some prandial needs. * Last admission, patient only required ~ 70-100 units of insulin per day split 50% basal : 50% prandial. This dosing was achieved towards the end of the admission since patient was admitted with LOW BSG from too much basal as an outpatient. * Pt low again on admission this admission. Will significantly decrease TDD and basal insulin and titrate based on BSG trends. * Pre-lunch BSG tends to be the highest BSG of the day indicating that aggressive CHO ratio needed at at BF. Will continue similar CF/CR parameters as last admission. PLAN FOR INPATIENT GLYCEMIC CONTROL: * Basal insulin * Lantus 20 units SQ daily * Lantus scale HS 10-20 units SC HS * Bolus insulin * NovoLog per scale ACHS or Q6hrs while NPO * Goal Range: Low 100 mg/dL - High 140 mg/dL * Correction Factor: 20 mg/dL/unit at BF and 25 at lunch, dinner, and HS * Nutritional / Prandial insulin per carb ratio of 1 unit per 6 grams CHO consumed at BF and 8 at lunch, dinner and HS PLAN FOR DISCHARGE: * Re-distribute insulin regimen at discharge. Decrease Lantus and increase NovoLog bolus to prevent lows when PO intake changes.
[2021-04-10] MEDS ORDERED: BUMETANIDE 2 MG in SYRINGE 0 ML IV SCH (09:00)
--- NOTE | 2021-04-10 11:07 | Electrocardiogram Report ---
Test Reason : Blood Pressure : / mmHG Vent. Rate : 062 BPM Atrial Rate : 062 BPM P-R Int : 264 ms QRS Dur : 124 ms QT Int : 428 ms P-R-T Axes : 028 -33 141 degrees QTc Int : 434 ms Sinus rhythm with 1st degree A-V block Left axis deviation Left ventricular hypertrophy with QRS widening and repolarization abnormality Abnormal ECG When compared with ECG of 30-MAR-2021 04:43, No significant change Confirmed by Mitchel Pritchard ([id number]) on 04/10/2021 11:07:02 AM Referred By: [facility] Confirmed By:Mitchel Pritchard
--- NOTE | 2021-04-10 11:22 | Electrocardiogram Report ---
Test Reason : Blood Pressure : / mmHG Vent. Rate : 081 BPM Atrial Rate : 081 BPM P-R Int : 280 ms QRS Dur : 122 ms QT Int : 392 ms P-R-T Axes : 047 -39 095 degrees QTc Int : 455 ms Sinus rhythm with 1st degree A-V block Left axis deviation Left ventricular hypertrophy with QRS widening and repolarization abnormality Abnormal ECG When compared with ECG of 08-APR-2021 11:48, (unconfirmed) No significant change was found Confirmed by Mitchel Pritchard ([id number]) on 04/10/2021 11:22:04 AM Referred By: [facility] Confirmed By:Mitcehl Pritchard
--- NOTE | 2021-04-10 11:46 | Nephrology Consultation ---
Date of Consultation April 10, 2021 Assessment & Plan (1) CKD (chronic kidney disease), stage IV: * CKD due to DKD w/ baseline Cr 2.5 and EGFR 18 cc/min * Kidney function is stable at this time * Monitor PRP (2) Acute on chronic heart failure: * 03/30/21 Nuclear stress test was negative for inducible ischemia, LVEF 57% * Patient has shown diuretic resistance on prior hospitalizations. She does respond to combination loop + thiazide * Continue IV Bumex with target weight 107 kg. Once near target weight recommend transitioning back to Bumex 2 mg po BID + Metolazone 2.5 mg daily and KCl 20 mEq BID * Follow up w/ CHF clinic and Dr. Sanchez within 2 weeks of hospital discharge (3) Essential hypertension: * Controlled. On Imdur therapy (4) Chronic anemia: * Will recheck iron stores and consider KATHERINE therapy (5) Secondary hyperparathyroidism of renal origin: * Continue Calcitriol therapy History of Present Illness Reason for Consultation: CKD, volume overload Attending Physician: Gregory Matthews MD History of Present Illness Ms. Baer is a 75 year old white female who is seen at the request of Dr. Matthews for evaluation of CKD, volume overload. Medical records in the EMR were reviewed today and are summarized as follows: Ms. Baer has stage IV CKD (advanced impairment) due to diabetic kidney disease. Her baseline Cr is ~ 2.5 w/ EGFR 18 cc/min. Her Strip Presser is Dr. Sanchez. Ms. Baer's medical history is also significant for AODM, atrial fibrillation, iron deficiency anemia, asthma, HTN, TAMMIE, GERD, obesity (BMI 46), hypothyroidism, h/o DVT and osteopenia. She was hospitalized 03/07/21 - 03/27/21 for evaluation of dyspnea and anemia. Ms. Baer responded poorly to escalating doses of loop diuretics and required the addition of a thiazide in order to promote diuresis. At the time Nephrology signed off her case it was recommended that she remain on Bumex 2 mg po BID and Metolazone 2.5 mg daily. Her discharge weight was 107 kg. Following discharge from the hospital Ms. Baer was admitted to [facility]. Her diuretic regimen had been changed to Bumex 2 mg daily and she was placed on a low sodium diet. Unfortunately she developed progressive fluid retention and despite additional doses of IV Bumex by the fdc MD, patient's weight increased to 116 kg and she developed progressive dyspnea. Admission CXR revealed mild pulmonary congestion. Patient is currently on Bumex 2 mg IV daily and diuresing well. Weight has dropped by 5 kg over the last 48 hours. Allergies Allergy/AdvReac Type Severity Reaction Status Date / Time clarithromycin Allergy Intermediate RASH AND Verified 04/08/21 13:30 ITCHING Home Medications Medication Instructions Recorded Confirmed Type nitroglycerin [Nitrostat] 0.4 mg UT UD PRN #0 09/28/09 04/08/21 History docusate sodium 100 mg capsule 100 mg PO ACHS cap 05/10/19 04/08/21 History fexofenadine 180 mg tablet 180 mg PO QAM tab 05/10/19 04/08/21 History lancets 33 gauge #100 ea 05/10/19 01/26/21 History azelastine 137 mcg (0.1 %) nasal 2 sprays INTNAS BID #90 ml 10/28/19 04/08/21 Rx spray aerosol pantoprazole 40 mg tablet,delayed 40 mg PO DAILY #90 tab 08/15/20 04/08/21 Rx release metoclopramide HCl 10 mg tablet 10 mg PO QPM #90 tab 09/26/20 04/08/21 Rx duloxetine 30 mg capsule,delayed 30 mg PO QAM #90 cap 12/06/20 04/08/21 Rx release allopurinol 100 mg tablet 100 mg PO QAM #90 tab 12/21/20 04/08/21 Rx insulin aspart U-100 100 unit/mL 4 unit SUBCUT ACHS ml 01/22/21 04/08/21 History (3 mL) subcutaneous pen clonazepam 0.5 mg tablet 0.5 mg PO HS #30 tab 03/01/21 04/08/21 Rx levothyroxine 88 mcg tablet 88 mcg PO DAILY #30 tab 03/05/21 04/08/21 Rx ergocalciferol (vitamin D2) 1,250 50,000 unit PO Q14D #6 cap 03/06/21 04/08/21 Rx mcg (50,000 unit) capsule potassium chloride 20 mEq 20 meq PO DAILY #90 tab 03/13/21 04/08/21 Rx tablet,extended release(part/cryst) ipratropium 0.5 mg-albuterol 3 mg 3 ml INHALATION QID PRN #90 ml 03/19/21 04/08/21 Rx (2.5 mg base)/3 mL nebulization soln bumetanide 2 mg PO QAM 90 Days #180 tab 03/27/21 04/08/21 Rx isosorbide mononitrate 30 mg PO QAM #270 tab 03/27/21 04/08/21 Rx Basaglar KwikPen U-100 Insulin 40 unit SC BID 03/30/21 04/08/21 History acetaminophen [Tylenol] 650 mg PO Q6H PRN MDD 3 GRAMS/24 03/30/21 04/08/21 History HOURS atorvastatin 80 mg PO HS 03/30/21 04/08/21 History bumetanide [Bumex] 2 mg PO Q24H PRN 03/30/21 04/08/21 History cranberry bmmr-[id number] coag 2 tab PO DAILY 03/30/21 04/08/21 History [Azo Cranberry + Probiotic] fenofibrate micronized 200 mg PO DAILY 03/30/21 04/08/21 History insulin lispro [Humalog U-100 0 unit SUBCUT DIRECTED PRN 03/30/21 04/08/21 History Insulin] levalbuterol tartrate [Xopenex HFA] 2 inh INH Q4H PRN 03/30/21 04/08/21 History nystatin 1 applic TOPICAL BID 03/30/21 04/08/21 History promethazine [Phenergan] 25 mg IM Q6H PRN 03/30/21 04/08/21 History terconazole 1 appl PV DAILY 03/30/21 04/08/21 History warfarin [Coumadin] 5 mg PO DAILY 03/30/21 04/08/21 History OneTouch Ultra Blue Test Strip 04/08/21 04/08/21 History calcitriol 0.5 mcg PO QAM 04/08/21 04/08/21 History cefdinir 300 mg PO HS 04/08/21 04/08/21 History multivitamin 1 tab PO QAM 04/08/21 04/08/21 History pen needle, diabetic [BD 04/08/21 04/08/21 History Ultra-Fine Mini Pen Needle] Patient History Medical History Acute osteomyelitis Cataract CHF (congestive heart failure) Chronic anemia Constipation Decubitus ulcer Diabetic foot ulcer Encounter for health maintenance examination Gastric ulcer Gastroparesis Gout, joint Herpes zoster Hiatal hernia Influenza A Pneumonia Secondary hyperparathyroidism of renal origin Stasis ulcer Stenosis of trachea Vaginitis Surgical History H/O adenoidectomy H/O hand surgery H/O knee surgery H/O: hysterectomy Hx of salpingo-oophorectomy, bilateral S/P tonsillectomy Family History Father Emphysema, unspecified Sister Uterine cancer Ovarian cancer Other Liver cancer Denies family history of Colon cancer Pancreatic cancer Prostate cancer Myocardial infarction Breast cancer Bleeding disorder Colorectal cancer Social History Smoking Status: Never smoker Second Hand Exposure: No; Hx Alcohol Use: No Hx Substance Use: No Preferred Language: Greenlandic Communication Ability: Effective Visual Impairment: Limited Hearing Ability: Normal Inside Upholsterer Required: No Beliefs That Will Affect Care: None marital status: Single Current Living Situation: Care Home Current Living Situation Comment: [facility] current occupational status: retired How many Children do You have: 0 Other Information That Helps Us Care for You: No Feels Safe at Home: Yes Safety Concerns: Feels Safe At This Time Childhood Exposure to Second-Hand Smoke: No Dental Care, Regularly: Yes Physical Activity Frequency: Does not Exercise Seatbelt Use: always Sunscreen Use: No Do you think of yourself as: straight/heterosexual Assistive Devices: Walker Review of Systems 2 Constitutional: no fever Eyes: no problem reported Ear, Nose, Mouth, Throat: no problem reported Respiratory: no dyspnea Cardiovascular: no chest pain Gastrointestinal: no abdominal pain and no nausea Genitourinary: no dysuria and no hematuria Musculoskeletal: no back pain Integumentary: no rash Neurologic: no falls Physical Exam Constitutional: + obese; not in distress Eyes: PERRL, conjunctivae normal, anicteric sclerae ENMT: external ear and nose normal, oropharynx normal Neck: trachea midline, no thyromegaly Respiratory: normal respiratory effort, lungs clear to auscultation Cardiovascular: Rate/Rhythm: + irregularly irregular Extremities: + edema (2+ pretibial pitting edema) Gastrointestinal (Abdomen): normal bowel sounds, soft, nontender, no hepatosplenomegaly Musculoskeletal: Extremities: no cyanosis Skin: no rashes, warm and dry Neurologic: awake; not confused Results & Data ([facility]) Vital Signs (Past 12 Hours) Vital Signs Temp Pulse Pulse Resp BP Pulse Ox 04/10/21 11:11 37.2 C 65 19 146/64 H 94 04/10/21 07:06 37.0 C 67 17 121/58 L 94 04/10/21 07:00 66 04/10/21 03:27 36.9 C 74 18 176/68 H 91 04/10/21 02:26 72 Laboratory Tests 04/10/21 04/10/21 05:55 05:55 WBC 5.85 Hgb 10.7 L Hct 34.1 L Plt Count 187 Sodium 141 Potassium 3.5 Chloride 104 Carbon Dioxide 32 BUN 36 H Creatinine 2.09 H Glucose 176 H Calcium 9.0 PG Care Time/CCT Total # of Minutes Spent Total Time Spent with Patient: Total time spent is greater than 50% in coordination of care (as documented) at patient's floor/unit and/or counseling patient: Coding Level of Care Code 62899 Inpt Consult Level 5 Diagnoses CKD (chronic kidney disease), stage IV N18.4 Acute on chronic heart failure I50.9 Essential hypertension I10 Chronic anemia D64.9 Secondary hyperparathyroidism of renal origin N25.81
[2021-04-10] MEDS: ACETAMINOPHEN 325 MG TAB PO PRN (14:16)
[2021-04-10] MEDS: WARFARIN SOD 2.5 MG TAB PO SCH (16:51)
--- NOTE | 2021-04-10 17:11 | Hospitalist Progress Note ---
Date of Service April 10, 2021 Assessment & Plan (1) Acute on chronic heart failure: Acute on chronic heart failure. Patient has gained 10.2kg since discharge on 03/27/21. Weight has been down 5 pounds -3 L Morris catheter placed in ED. IV Bumex 2mg BID plus metolazone 2.5 DM carb consistent, low sodium, heart healthy diet. Limit fluids to 1200ml daily. heart failure program to follow patient Echo in February showed heart failure preserved ejection fraction stress in march negative for ischemia (2) Substernal chest pain: No significant findings on admission. None since admission Troponin normal on admission. Remain Imdur. EKG in shows no changes. (3) Paroxysmal atrial fibrillation: Beta-sharon discontinued last admission d/t bradycardia. On Coumadin 2.5mg daily (4) CKD (chronic kidney disease), stage IV: Baseline Cr 1.9 to 2.6. Will monitor while being diuresed. (5) Diabetes type 2, uncontrolled: Last Hgb A1C was 6.5% on 03/08/21. Continue Lantus. BSGs ACHS. Pharmacy glycemic management consult. (6) Iron deficiency anemia: Was given Venofer last admission. H&H stable at 10.9 and 35.7. (7) Oropharyngeal dysphagia: Video swallow showed minimal aspiration last admission. Minced/moist diet. (8) Subglottic stenosis: (9) Stenosis of trachea: Tracheal stenosis/subglottic stenosis.- S/P procedure at [facility] for the issue in February. Follows with Dr. Alanan wu. (10) Asthma: Stable. Continue Albuterol QID PRN. (11) Depression: Stable. Continue duloxetine 30mg daily. (12) Dyslipidemia: On atorvastatin and fenofibrate. Will continue. (13) Essential hypertension: BP 163/79 on admission. Beta sharon stopped last admission d/t bradycardia. Imdur 30mg daily. Metolazone 2.5 Hydralazine 10mg IV PRN for SBP >180 or DBP >100. Monitor. (14) GERD without esophagitis: Continue pantoprazole and metoclopramide. (15) Obstructive sleep apnea of adult: CPAP at bedtime. (16) Venous insufficiency (chronic) (peripheral): BLE edema secondary to CHF exacerbation. Patient noted to have erythema and venous stasis changes of the lower extremities. Low suspicion for developing cellulitis of the lower extremities, but would monitor. 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 Dress with Aquacel AG and an optifoam daily. Will order waffle boots for heel offloading. (19) Hypothyroidism: Last TSH was 2.690 on 03/12/21. Continue levothyroxine 88mcg daily. Admission and Anticipated Discharge Date Admission Date: April 08, 2021 Subjective Pt continues to feel better, weight down, nephrology is content with diuresis, continue to reinforce dietary restriction Review of Systems Review of Systems: Mild to moderate distress and fatigue no headache, no visual changes no speech or swallowing issues no chest pain, pressure or palpitations imprproving Dyspnea with exertion, no cough or wheezes no abdominal pain, nausea or vomiting, diarrhea or constipation no dysuria, hematuria or frequency no focal joint pain but does have persistent peripheral swelling no back pain, CVA tenderness or radicular pain no bruising, bleeding or rashes no focal signs of weakness or numbness or altered sensation no complaints of anxiety or depression.. Physical Exam Physical Exam: The patient appeared well nourished and normally developed. She is morbidly obese with a BMI of 47 Vital signs as documented. Head exam is normocephalic atraumatic Neck is with difficult to assess JVD, thyromegaly, or carotid bruits. Lungs are diminished at the bases with rales just above Cardiac exam, Rhythm is regular.. No murmurs, rubs or gallops. Abdominal exam reveals normal bowel sounds, soft non tender, no masses Extremities are 2+ edematous and both pedal pulses are present Neurologic exam is alert and oriented, no focal loss of strength or sensation Skin is with bilateral chronic venous stasis changes seen to her lower legs with circumferential erythematous plaques Psychologically is without concerns for anxiety or depression Results & Data Results & Data ([facility]) Vital Signs (Past 12 Hours) Vital Signs Temp Pulse Pulse Resp BP Pulse Ox 04/10/21 15:45 69 04/10/21 15:16 99.0 F 68 19 137/68 92 04/10/21 11:11 99.0 F 65 19 146/64 H 94 04/10/21 07:06 98.6 F 67 17 121/58 L 94 04/10/21 07:00 66 PG Care Time/CCT Total # of Minutes Spent Total Time Spent with Patient: Total time spent is greater than 50% in coordination of care (as documented) at patient's floor/unit and/or counseling patient: Coding Level of Care Code 39289 Subseq Hosp Care Lvl 2 Diagnoses Acute on chronic heart failure I50.9 Substernal chest pain R07.2 Paroxysmal atrial fibrillation I48.0 CKD (chronic kidney disease), stage IV N18.4 Diabetes type 2, uncontrolled E11.65 Glycemic state: with hyperglycemia Iron deficiency anemia D50.8 Iron deficiency anemia type: other iron deficiency Oropharyngeal dysphagia R13.12 Subglottic stenosis J38.6 Stenosis of trachea J39.8 Asthma J45.40 Asthma complication type: uncomplicated Asthma persistence: persistent Asthma severity: moderate Depression F32.9 Active/Remission status: remission status unspecified Depression Type: major depressive disorder Major depression recurrence: unspecified whether recurrent Dyslipidemia E78.5 Essential hypertension I10 GERD without esophagitis K21.9 Obstructive sleep apnea of adult G47.33 Venous insufficiency (chronic) (peripheral) I87.2 DVT prophylaxis Z29.9 Diabetic ulcer of left heel associated with type 2 diabetes mellitus, limited to breakdown of skin E11.621; L97.421 Hypothyroidism E03.9 Hypothyroidism type: unspecified (1) Depression Active/Remission status: remission status unspecified Depression Type: major depressive disorder Major depression recurrence: unspecified whether recurrent Qualified Code(s): F32.9 - Major depressive disorder, single episode, unspecified (2) Hypothyroidism Hypothyroidism type: unspecified Qualified Code(s): E03.9 - Hypothyroidism, unspecified (3) Diabetes type 2, uncontrolled Glycemic state: with hyperglycemia Qualified Code(s): E11.65 - Type 2 diabetes mellitus with hyperglycemia (4) Iron deficiency anemia Iron deficiency anemia type: other iron deficiency Qualified Code(s): D50.8 - Other iron deficiency anemias (5) Asthma Asthma complication type: uncomplicated Asthma persistence: persistent Asthma severity: moderate Qualified Code(s): J45.40 - Moderate persistent asthma, uncomplicated
[2021-04-10] MEDS ORDERED: INSULIN GLARGINE SOLOSTAR 100 UNITS/ML 3 ML PEN SC SCH (21:00)
[2021-04-10] MEDS: BUMETANIDE 2 MG in SYRINGE 0 ML IV SCH (21:05)
[2021-04-10] MEDS: clonazePAM 0.5 MG TAB PO SCH (21:05)
[2021-04-10] MEDS: ATORVASTATIN 40 MG TAB PO SCH (21:05)
[2021-04-10] MEDS: METOCLOPRAMIDE HCL 10 MG TABLET PO SCH (21:05)
[2021-04-11] MEDS: LEVOTHYROXINE SODIUM 88 MCG TABLET PO SCH (05:37)
[2021-04-11 06:14] LABS: INR 1.5 (0.9-1.1); Prothrombin Time 14.4 Seconds (9.0-12.0)
[2021-04-11 06:35] LABS: BUN Creatinine Ratio 17.4 (10-20); Calcium 9.2 mg/dl (8.5-10.1); Creatinine Clr Calc Pharmacy 24.9 ml/min; Est GFR (African American) 24.8 ml/min; Est GFR (Non-African American) 21.4 ml/min; Potassium 3.2 mmol/L (3.5-5.1)
[2021-04-11] MEDS: INSULIN ASPART 100 UNITS/ML 3 ML PEN SC SCH ×4 (08:18→21:14)
[2021-04-11] MEDS: INSULIN GLARGINE SOLOSTAR 100 UNITS/ML 3 ML PEN SC SCH ×2 (08:20→21:13)
[2021-04-11] MEDS: POTASSIUM CHLORIDE CRTAB 20 MEQ TABCR PO SCH ×3 (08:25→21:12)
[2021-04-11] MEDS: FEXOFENADINE HCL 180 MG TAB PO SCH (08:25)
[2021-04-11] MEDS: FENOFIBRATE NANOCRYSTALLIZED 145 MG TABLET PO SCH (08:25)
[2021-04-11] MEDS: allopurinoL 100 MG TAB PO SCH (08:25)
[2021-04-11] MEDS: DOCUSATE SODIUM 100 MG CAP PO SCH ×4 (08:25→21:13)
[2021-04-11] MEDS: MULTIVITAMIN TAB PO SCH (08:25)
[2021-04-11] MEDS: BUMETANIDE 2 MG in SYRINGE 0 ML IV SCH (08:25)
[2021-04-11] MEDS: DULoxetine HCL 30 MG CAP PO SCH (08:25)
[2021-04-11] MEDS: ISOSORBIDE MONO EXTENDED REL 30 MG TABCR PO SCH (08:26)
[2021-04-11] MEDS: PANTOprazole 40 MG TAB PO SCH (08:26)
[2021-04-11] MEDS: CALCITRIOL 0.25 MCG CAPSULE PO SCH (08:26)
[2021-04-11] MEDS: NYSTATIN POWDER 15GM BTL EXT SCH ×2 (08:26→21:13)
[2021-04-11] MEDS: metOLazone 2.5 MG TABLET PO SCH (08:53)
[2021-04-11] MEDS ORDERED: MAGNESIUM SULFATE / D5W 1 GM/100 ML BAG IV ONE (09:45)
--- NOTE | 2021-04-11 10:10 | Nephrology Progress Note ---
Date of Service April 11, 2021 Assessment & Plan (1) CKD (chronic kidney disease), stage IV: * CKD due to DKD w/ baseline Cr 2.5 and EGFR 18 cc/min * Kidney function is stable at this time * Monitor PRP (2) Acute on chronic heart failure: * 03/30/21 Nuclear stress test was negative for inducible ischemia, LVEF 57% * Patient has shown diuretic resistance on prior hospitalizations. She does respond to combination loop + thiazide * Continue IV Bumex with target weight 107 kg. Consider transitioning back to Bumex 2 mg po BID + Metolazone 2.5 mg daily and KCl 20 mEq BID in am * Follow up w/ CHF clinic and Dr. Sanchez within 2 weeks of hospital discharge (3) Essential hypertension: * Controlled. On Imdur therapy (4) Chronic anemia: * Hgb 10.9 * Iron sat 12% w/ ferritin 124. Will provide IV Venofer (5) Secondary hyperparathyroidism of renal origin: * Continue Calcitriol therapy Admission and Anticipated Discharge Date Admission Date: April 08, 2021 Subjective Ms. Baer was seen & examined in her hospital room this morning. She reports that her breathing and LE swelling have improved. She was able to ambulate in the hallway w/ assistance yesterday Review of Systems Constitutional: no fever Eyes: no problem reported Ear, Nose, Mouth, Throat: no problem reported Respiratory: no dyspnea Cardiovascular: no chest pain Gastrointestinal: no abdominal pain and no nausea Genitourinary: no dysuria and no hematuria Musculoskeletal: no back pain Integumentary: no rash Neurologic: no falls Physical Exam Constitutional: + obese; not in distress Eyes: PERRL, conjunctivae normal, anicteric sclerae ENMT: external ear and nose normal, oropharynx normal Neck: trachea midline, no thyromegaly Respiratory: normal respiratory effort, lungs clear to auscultation Cardiovascular: Rate/Rhythm: + irregularly irregular Extremities: + edema (1+ pretibial pitting edema) Gastrointestinal (Abdomen): normal bowel sounds, soft, nontender, no hepatosplenomegaly Musculoskeletal: Extremities: no cyanosis Skin: no rashes, warm and dry Neurologic: awake; not confused Results & Data ([place]) Vital Signs (Past 12 Hours) Vital Signs Temp Pulse Pulse Resp BP Pulse Ox 04/11/21 07:56 36.8 C 61 19 149/71 H 91 04/11/21 03:15 37.0 C 68 19 143/68 H 92 04/11/21 00:17 71 04/10/21 23:31 36.9 C 73 18 179/71 H 94 Laboratory Tests 04/11/21 05:48 Sodium 139 Potassium 3.2 L Chloride 103 Carbon Dioxide 33 H BUN 38 H Creatinine 2.16 H Glucose 153 H Transferrin % Sat 12 L Ferritin 124.0 PG Care Time/CCT Total # of Minutes Spent Total Time Spent with Patient: Total time spent is greater than 50% in coordination of care (as documented) at patient's floor/unit and/or counseling patient: Coding Level of Care Code 97003 Subseq Hosp Care Lvl 3 Diagnoses CKD (chronic kidney disease), stage IV N18.4 Acute on chronic heart failure I50.9 Essential hypertension I10 Chronic anemia D64.9 Secondary hyperparathyroidism of renal origin N25.81
[2021-04-11] MEDS: IRON SUCROSE 200 MG in 0.9 % SODIUM CHLORIDE 100 ML IV SCH (12:09)
--- NOTE | 2021-04-11 12:47 | Electrocardiogram Report ---
Test Reason : Blood Pressure : / mmHG Vent. Rate : 076 BPM Atrial Rate : 076 BPM P-R Int : 294 ms QRS Dur : 122 ms QT Int : 410 ms P-R-T Axes : 057 -40 093 degrees QTc Int : 461 ms Sinus rhythm with 1st degree A-V block Left axis deviation Left ventricular hypertrophy with QRS widening and repolarization abnormality Abnormal ECG When compared with ECG of 09-APR-2021 05:09, (unconfirmed) No significant change was found Confirmed by Mitchel Pritchard ([id number]) on 04/11/2021 12:46:54 PM Referred By: [facility] Confirmed By:Mitchel Pritchard
[2021-04-11] MEDS: ACETAMINOPHEN 325 MG TAB PO PRN (15:30)
[2021-04-11] MEDS: BUMETANIDE 1 MG TAB PO SCH (16:21)
[2021-04-11] MEDS: WARFARIN SOD 2.5 MG TAB PO SCH (16:21)
--- NOTE | 2021-04-11 16:40 | Hospitalist Progress Note ---
Date of Service April 11, 2021 Assessment & Plan (1) Acute on chronic heart failure: Acute on chronic heart failure. Patient has gained 10.2kg since discharge on 03/27/21. Weight has been down Morris catheter placed in ED. Bumex 2mg BID changed to po plus metolazone 2.5 DM carb consistent, low sodium, heart healthy diet. Limit fluids to 1200ml daily. heart failure program to follow patient Echo in February showed heart failure preserved ejection fraction stress in march negative for ischemia (2) Substernal chest pain: No significant findings on admission. None since admission Troponin normal on admission. Remains on Imdur. EKG in shows no changes. (3) Paroxysmal atrial fibrillation: Beta-sharon discontinued last admission d/t bradycardia. On Coumadin 2.5mg daily (4) CKD (chronic kidney disease), stage IV: Baseline Cr 1.9 to 2.6. Will monitor while being diuresed. (5) Diabetes type 2, uncontrolled: Last Hgb A1C was 6.5% on 03/08/21. Continue Lantus. BSGs ACHS. Pharmacy glycemic management consult. (6) Iron deficiency anemia: Was given Venofer last admission. H&H stable at 10.9 and 35.7. (7) Oropharyngeal dysphagia: Video swallow showed minimal aspiration last admission. Minced/moist diet. 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 Follows with Dr. Alanna wu. (10) Asthma: Stable. Continue Albuterol QID PRN. (11) Depression: Stable. Continue duloxetine 30mg daily. (12) Dyslipidemia: On atorvastatin and fenofibrate. Will continue. (13) Essential hypertension: BP 163/79 on admission. Beta sharon stopped last admission d/t bradycardia. Imdur 30mg daily. Metolazone 2.5 Hydralazine 10mg IV PRN for SBP >180 or DBP >100. Monitor. (14) GERD without esophagitis: Continue pantoprazole and metoclopramide. (15) Obstructive sleep apnea of adult: CPAP at bedtime. (16) Venous insufficiency (chronic) (peripheral): BLE edema secondary to CHF exacerbation. Patient noted to have erythema and venous stasis changes of the lower extremities. Low suspicion for developing cellulitis of the lower extremities, seem stable (17) DVT prophylaxis: On Coumadin (18) Diabetic ulcer of left heel associated with type 2 diabetes mellitus, limited to breakdown of skin: Patient has a superficial diabetic ulcer of the left heel. Dress with Aquacel AG and an optifoam daily. Will order waffle boots for heel offloading. (19) Hypothyroidism: Last TSH was 2.690 on 03/12/21. Continue levothyroxine 88mcg daily. Admission and Anticipated Discharge Date Admission Date: April 11, 2021 Subjective pt is feeling much better and continues to drop weight and has a negative total daily fluid count feels legs are arms are less swollen and tender looking forward to return to [facility] Review of Systems Review of Systems: Mild to moderate distress and fatigue no headache, no visual changes no speech or swallowing issues no chest pain, pressure or palpitations imprproving Dyspnea with exertion, no cough or wheezes no abdominal pain, nausea or vomiting, diarrhea or constipation no dysuria, hematuria or frequency no focal joint pain but does have persistent peripheral swelling no back pain, CVA tenderness or radicular pain no bruising, bleeding or rashes no focal signs of weakness or numbness or altered sensation no complaints of anxiety or depression.. Physical Exam Physical Exam: The patient appeared well nourished and normally developed. She is morbidly obese with a BMI of 47 Vital signs as documented. Head exam is normocephalic atraumatic Neck is with difficult to assess JVD, thyromegaly, or carotid bruits. Lungs are diminished at the bases with rales just above Cardiac exam, Rhythm is regular.. No murmurs, rubs or gallops. Abdominal exam reveals normal bowel sounds, soft non tender, no masses Extremities are 2+ edematous and both pedal pulses are present Neurologic exam is alert and oriented, no focal loss of strength or sensation Skin is with bilateral chronic venous stasis changes seen to her lower legs with circumferential erythematous plaques Psychologically is without concerns for anxiety or depression Results & Data Results & Data ([facility]) Vital Signs (Past 12 Hours) Vital Signs Temp Pulse Pulse Resp BP Pulse Ox 04/11/21 15:14 97.9 F 59 L 18 137/68 92 04/11/21 11:14 98.8 F 68 18 147/60 H 92 04/11/21 08:00 58 L 04/11/21 07:56 98.2 F 61 19 149/71 H 91 PG Care Time/CCT Total # of Minutes Spent Total Time Spent with Patient: Total time spent is greater than 50% in coordination of care (as documented) at patient's floor/unit and/or counseling patient: Coding Level of Care Code 05542 Subseq Hosp Care Lvl 3 Diagnoses Acute on chronic heart failure I50.9 Substernal chest pain R07.2 Paroxysmal atrial fibrillation I48.0 CKD (chronic kidney disease), stage IV N18.4 Diabetes type 2, uncontrolled E11.65 Glycemic state: with hyperglycemia Iron deficiency anemia D50.8 Iron deficiency anemia type: other iron deficiency Oropharyngeal dysphagia R13.12 Subglottic stenosis J38.6 Stenosis of trachea J39.8 Asthma J45.40 Asthma severity: moderate Asthma persistence: persistent Asthma complication type: uncomplicated Depression F32.9 Depression Type: major depressive disorder Major depression recurrence: unspecified whether recurrent Active/Remission status: remission status unspecified Dyslipidemia E78.5 Essential hypertension I10 GERD without esophagitis K21.9 Obstructive sleep apnea of adult G47.33 Venous insufficiency (chronic) (peripheral) I87.2 DVT prophylaxis Z29.9 Diabetic ulcer of left heel associated with type 2 diabetes mellitus, limited to breakdown of skin E11.621; L97.421 Hypothyroidism E03.9 Hypothyroidism type: unspecified (1) Diabetes type 2, uncontrolled Glycemic state: with hyperglycemia Qualified Code(s): E11.65 - Type 2 diabetes mellitus with hyperglycemia (2) Iron deficiency anemia Iron deficiency anemia type: other iron deficiency Qualified Code(s): D50.8 - Other iron deficiency anemias (3) Asthma Asthma severity: moderate Asthma persistence: persistent Asthma complication type: uncomplicated Qualified Code(s): J45.40 - Moderate persistent asthma, uncomplicated (4) Depression Depression Type: major depressive disorder Major depression recurrence: unspecified whether recurrent Active/Remission status: remission status unspecified Qualified Code(s): F32.9 - Major depressive disorder, single episode, unspecified (5) Hypothyroidism Hypothyroidism type: unspecified Qualified Code(s): E03.9 - Hypothyroidism, unspecified
[2021-04-11] MEDS: METOCLOPRAMIDE HCL 10 MG TABLET PO SCH (21:13)
[2021-04-11] MEDS: ATORVASTATIN 40 MG TAB PO SCH (21:13)
[2021-04-11] MEDS: clonazePAM 0.5 MG TAB PO SCH (22:07)
[2021-04-12] MEDS: LEVOTHYROXINE SODIUM 88 MCG TABLET PO SCH (05:34)
[2021-04-12 06:48] LABS: Calcium 9.4 mg/dl (8.5-10.1); Creatinine Clr Calc Pharmacy 24.8 ml/min; Est GFR (African American) 24.7 ml/min; Est GFR (Non-African American) 21.3 ml/min; Potassium 3.5 mmol/L (3.5-5.1)
[2021-04-12] MEDS: allopurinoL 100 MG TAB PO SCH (08:22)
[2021-04-12] MEDS: IRON SUCROSE 200 MG in 0.9 % SODIUM CHLORIDE 100 ML IV SCH (08:22)
[2021-04-12] MEDS: ISOSORBIDE MONO EXTENDED REL 30 MG TABCR PO SCH (08:22)
[2021-04-12] MEDS: NYSTATIN POWDER 15GM BTL EXT SCH (08:22)
[2021-04-12] MEDS: metOLazone 2.5 MG TABLET PO SCH (08:22)
[2021-04-12] MEDS: MULTIVITAMIN TAB PO SCH (08:22)
[2021-04-12] MEDS: FEXOFENADINE HCL 180 MG TAB PO SCH (08:22)
[2021-04-12] MEDS: DULoxetine HCL 30 MG CAP PO SCH (08:22)
[2021-04-12] MEDS: DOCUSATE SODIUM 100 MG CAP PO SCH ×3 (08:23→15:37)
[2021-04-12] MEDS: CALCITRIOL 0.25 MCG CAPSULE PO SCH (08:23)
[2021-04-12] MEDS: FENOFIBRATE NANOCRYSTALLIZED 145 MG TABLET PO SCH (08:23)
[2021-04-12] MEDS: PANTOprazole 40 MG TAB PO SCH (08:23)
[2021-04-12] MEDS: BUMETANIDE 1 MG TAB PO SCH (08:23)
[2021-04-12] MEDS: POTASSIUM CHLORIDE CRTAB 20 MEQ TABCR PO SCH ×2 (08:24→08:27)
[2021-04-12] MEDS: INSULIN ASPART 100 UNITS/ML 3 ML PEN SC SCH ×3 (08:26→16:50)
[2021-04-12] MEDS: ACETAMINOPHEN 325 MG TAB PO PRN (08:33)
[2021-04-12] MEDS ORDERED: INSULIN GLARGINE SOLOSTAR 100 UNITS/ML 3 ML PEN SC SCH (09:00)
--- NOTE | 2021-04-12 10:29 | Nephrology Progress Note ---
Date of Service April 12, 2021 Assessment & Plan (1) CKD (chronic kidney disease), stage IV: * CKD due to DKD w/ baseline Cr 2.5 and EGFR 18 cc/min * Kidney function is stable at this time * Monitor PRP (2) Acute on chronic heart failure: * 03/30/21 Nuclear stress test was negative for inducible ischemia, LVEF 57% * Patient has displayed diuretic resistance on prior hospitalizations. She does respond to combination loop + thiazide * Recommend transitioning back to Bumex 2 mg po BID + Metolazone 2.5 mg daily and KCl 20 mEq BID in am * Follow up w/ CHF clinic and Dr. Sanchez within 2 weeks of hospital discharge (3) Essential hypertension: * Controlled. On Imdur therapy (4) Chronic anemia: * Hgb 10.9 * Iron sat 12% w/ ferritin 124. Will provide IV Venofer (5) Secondary hyperparathyroidism of renal origin: * Continue Calcitriol therapy Admission and Anticipated Discharge Date Admission Date: April 11, 2021 Subjective Ms. Baer was seen & examined in her hospital room this morning. She was breat claire comfortably on RA and reports that LE swelling have improved. She has been able to get OOB and ambulate w/ assistance. Review of Systems Constitutional: no fever Eyes: no problem reported Ear, Nose, Mouth, Throat: no problem reported Respiratory: no dyspnea Cardiovascular: no chest pain Gastrointestinal: no abdominal pain and no nausea Genitourinary: no dysuria and no hematuria Musculoskeletal: no back pain Integumentary: no rash Neurologic: no falls Physical Exam Constitutional: + obese; not in distress Eyes: PERRL, conjunctivae normal, anicteric sclerae ENMT: external ear and nose normal, oropharynx normal Neck: trachea midline, no thyromegaly Respiratory: normal respiratory effort, lungs clear to auscultation Cardiovascular: Rate/Rhythm: + irregularly irregular Extremities: + edema (1+ pretibial pitting edema) Gastrointestinal (Abdomen): normal bowel sounds, soft, nontender, no hepatosplenomegaly Musculoskeletal: Extremities: no cyanosis Skin: no rashes, warm and dry Neurologic: awake; not confused Results & Data ([place]) Vital Signs (Past 12 Hours) Vital Signs Temp Pulse Resp BP Pulse Ox 04/12/21 07:35 36.6 C 53 L 20 149/74 H 94 04/12/21 03:19 36.7 C 63 18 177/62 H 93 04/11/21 22:41 36.6 C 86 17 151/79 H 94 Laboratory Tests 04/12/21 05:52 Sodium 139 Potassium 3.5 Chloride 103 Carbon Dioxide 31 BUN 39 H Creatinine 2.17 H Glucose 158 H PG Care Time/CCT Total # of Minutes Spent Total Time Spent with Patient: Total time spent is greater than 50% in c oordination of care (as documented) at patient's floor/unit and/or counseling patient: Coding Level of Care Code 36727 Subseq Hosp Care Lvl 3 Diagnoses CKD (chronic kidney disease), stage IV N18.4 Acute on chronic heart failure I50.9 Essential hypertension I10 Chronic anemia D64.9 Secondary hyperparathyroidism of renal origin N25.81
[2021-04-12] MEDS: WARFARIN SOD 2.5 MG TAB PO SCH (15:36)
--- NOTE | 2021-04-12 18:31 | Discharge Summary ---
Date of Service April 12, 2021 Admission HPI Per Admitting Provider 75 year old female brought to the [facility] ED today by [facility] for worsening SOB, chest pain, and weight gain. The patient was at [facility] for SNF/rehab. Patient was recently admitted from 03/07/21-03/27/21 for CHF exacerbation. Discharge weight was noted to be 105.9kg. She weighs 116.1kg today. Patient reports onset of SOB and chest pain as last evening. She was discharged on Bumex 2mg daily, and was to f/u with Atiya Hearn at the heart failure clinic on 04/10/21. The patient also notes increasing swelling of the legs with pain and erythema. PMH includes CKD stage IV with baseline Cr of 1.9-2.6, a-fib, type II diabetes, iron deficiency anemia, tracheal stenosis, subglottic stenosis, asthma, depression, HTN, obstructive sleep apnea, GERD, morbid obesity, hypothyroidism, dyslipidemia, DVT, thrombocytopenia, osteopenia, venous insufficiency, allergic rhinitis, and lichen sclerosus. Principal Diagnosis exacerbation of HfpEF volume overload responding to diuretics Discharge Exam The patient appeared well Vital signs as documented. Lungs are clear to auscultation diminished at the bases Cardiac exam, Rhythm is regular.. Systolic murmur is heard Abdominal exam reveals normal bowel sounds, soft non tender, no masses Extremities are 1+ edematous and both pedal pulses are normal. Neurologic exam is alert and oriented, no focal loss of strength or sensation Skin is without bruises or rashes Psychologically is without concerns for anxiety or depression. Discharge Data Allergies Allergy/AdvReac Type Severity Reaction Status Date / Time clarithromycin Allergy Intermediate RASH AND Verified 04/08/21 13:30 ITCHING Consultations 04/08/21 15:07 ED Decision to Admit Stat 04/10/21 07:15 Consult Nephrology Routine Hospital Course (1) Acute on chronic heart failure: Acute on chronic heart failure. Patient has gained 10.2kg since discharge on 03/27/21. Bumex 2mg BID changed to po plus metolazone 2.5 DM carb consistent, low sodium, heart healthy diet. Limit fluids to daily. heart failure program to follow patient Echo in February showed heart failure preserved ejection fraction stress in march negative for ischemia (2) Substernal chest pain: No significant findings on admission. None since admission Troponin normal on admission. Remains on Imdur. EKG in shows no changes. (3) Paroxysmal atrial fibrillation: Beta-sahron discontinued last admission d/t bradycardia. On Coumadin 5mg daily will need to follow inr (4) CKD (chronic kidney disease), stage IV: Baseline Cr 1.9 to 2.6. recommend outpt monitoring (5) Diabetes type 2, uncontrolled: Last Hgb A1C was 6.5% on 03/08/21. outpt regimen on return to [facility] (6) Iron deficiency anemia: Was given Venofer last admission. H&H stable at 10.9 and 35.7. (7) Oropharyngeal dysphagia: Video swallow showed minimal aspiration last admission. Minced/moist diet. 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 Follows with Dr. Alanna wu. (10) Asthma: Stable. Continue Albuterol QID PRN. (11) Depression: Stable. Continue duloxetine 30mg daily. (12) Dyslipidemia: On atorvastatin and fenofibrate. Will continue. (13) Essential hypertension: BP 163/79 on admission. Beta sharon stopped last admission d/t bradycardia. Imdur 30mg daily. bumex bid Metolazone 2.5 (14) GERD without esophagitis: Continue pantoprazole and metoclopramide. (15) Obstructive sleep apnea of adult: CPAP at bedtime. (16) Venous insufficiency (chronic) (peripheral): BLE edema secondary to CHF exacerbation greatly improved but not resolved Patient noted to have erythema and venous stasis changes of the lower extremiti es. Low suspicion for developing cellulitis of the lower extremities, seem stable (17) DVT prophylaxis: On Coumadin (18) Diabetic ulcer of left heel associated with type 2 diabetes mellitus, limited to breakdown of skin: Patient has a superficial diabetic ulcer of the left heel. Dress with Aquacel AG and an optifoam daily. rcommend continued wound care (19) Hypothyroidism: Last TSH was 2.690 on 03/12/21. Continue levothyroxine 88mcg daily. Total Time Total Time Spent Total Time Spent (In Minutes): It required greater than 30 minutes to prepare this patient for discharge Discharge Plan Discharge Items Patient Disposition: Transfer Longterm Fac Reason For Visit: CHF EXACERBATION Discharge Diagnosis: acute on chronic diastolic heart failure Condition on Discharge: Good Activity: Resume your previous activity Non-emergency contact: Primary Care Provider and Quality Control Director Call non-emergency contact if: your symptoms worsen Follow-up/Referrals: [facility] [Primary Care Provider] - Diet: Carb Consistent or DM2 and Low Sodium (2gm) Addtl Attending Provider Instructions: 2 Issues at this time revolve around her diuretic dosing and her anticoagulation, at her bumex/metolazone , renal function and INR will need close attention WEIGHT * Weigh every morning after using the bathroom. * Use the same scale. * Wear the same amount of clothing. * Write your weight down on your chart. * Contact the doctor if you gain more than 2-3 pounds in 1-2 days. MEDICATIONS * Use this discharge instruction sheet for instructions. * Take your medications at the time your doctor ordered. * Do not skip a dose of your medicines. * If you miss a dose of medicine, take as soon as possible, but DO NOT DOUBLE A DOSE. * Read your medicine information when you get home. * Know all of the side effects of your medicine. * Call your doctor's office if you have any side effects. * Be sure all of your doctors know what medicine and herbs you take (including cold, flu, and herbal medicine). * Pain Medicine: If you do not get relief from your pain, please call your doctor for help. watch total fluid intake and salty foods that your family may bring in Pending Studies at Discharge: No Stand-Alone Forms: My [facility] Skilled Items Patient informed of condition?: Yes DNR: Yes Discharge Level of Care: Skilled Communicable Disease: No Discharge Prognosis: Stable Lines: None Urinary Catheter: No Medications and DC Order Prescriptions: New metolazone 2.5 mg Tablet 2.5 mg PO QAM Qty: 30 RF: 0 Continued nitroglycerin [Nitrostat] 0.4 mg Tablet, Sublingual 0.4 mg UT UD PRN (Reason: Chest Pain) Qty: 0 RF: 0 azelastine 137 mcg (0.1 %) aerosol,spray 2 sprays INTNAS BID Qty: 90 RF: 1 metoclopramide HCl [Reglan] 10 mg tablet 10 mg PO QPM Qty: 90 RF: 1 duloxetine [Cymbalta] 30 mg capsule,delayed release(DR/EC) 30 mg PO QAM Qty: 90 RF: 1 allopurinol [Zyloprim] 100 mg tablet 100 mg PO QAM Qty: 90 RF: 1 clonazepam [Klonopin] 0.5 mg tablet 0.5 mg PO HS Qty: 30 RF: 2 levothyroxine [Synthroid] 88 mcg tablet 88 mcg PO DAILY Qty: 30 RF: 2 ergocalciferol (vitamin D2) 1,250 mcg (50,000 unit) capsule 50,000 unit PO Q14D Qty: 6 RF: 3 potassium chloride [Klor-Con M20] 20 mEq tablet,ER particles/crystals 20 meq PO DAILY Qty: 90 RF: 1 ipratropium-albuterol 0.5 mg-3 mg(2.5 mg base)/3 mL solution for nebulization 3 ml inhalation QID PRN (Reason: wheezing) Qty: 90 RF: 1 pantoprazole [Protonix] 40 mg tablet,delayed release (DR/EC) 40 mg PO DAILY Qty: 90 RF: 3 docusate sodium [Colace] 100 mg capsule 100 mg PO ACHS RF: 0 fexofenadine [Marie Allergy] 180 mg tablet 180 mg PO QAM RF: 0 insulin aspart U-100 [Novolog Flexpen U-100 Insulin] 100 unit/mL (3 mL) insulin pen 4 unit SUBCUT ACHS RF: 0 atorvastatin 80 mg Tablet 80 mg PO HS RF: 0 acetaminophen [Tylenol] 325 mg Tablet 650 mg PO Q6H MDD 3 GRAMS/24 HOURS PRN (Reason: FEVER > 100/PAIN) RF: 0 bumetanide 2 mg Tablet 2 mg PO Q24H PRN (Reason: CHF/WT GAIN >3 LBS IN 24 HRS.) RF: 0 fenofibrate micronized 200 mg Capsule 200 mg PO DAILY RF: 0 warfarin 5 mg Tablet 5 mg PO DAILY RF: 0 nystatin 100,000 unit/gram Powder 1 applic TOPICAL BID RF: 0 insulin lispro [Humalog U-100 Insulin] 100 unit/mL Solution 0 unit SUBCUT DIRECTED PRN (Reason: ELEVATED BSG'S) RF: 0 Azo Cranberry + Probiotic 250-30-50 [id number]-[id number] Tablet 2 tab PO DAILY RF: 0 terconazole 0.4 % cream 1 appl PV DAILY RF: 0 levalbuterol tartrate [Xopenex HFA] 45 mcg/actuation HFA aerosol inhaler 2 inh INH Q4H PRN (Reason: shortness of breath or wheezing) RF: 0 Basaglar KwikPen U-100 Insulin 100 unit/mL (3 mL) insulin pen 40 unit SC BID RF: 0 multivitamin Tablet 1 tab PO QAM RF: 0 calcitriol 0.5 mcg capsule 0.5 mcg PO QAM RF: 0 isosorbide mononitrate 30 mg tablet extended release 24 hr 30 mg PO QAM Qty: 270 RF: 1 Changed bumetanide 2 mg tablet 2 mg PO BID 90 Days Qty: 180 RF: 3 Discontinued promethazine [Phenergan] 25 mg/mL Solution 25 mg IM Q6H PRN (Reason: NAUSEA/VOMITING) RF: 0 cefdinir 300 mg capsule 300 mg PO HS RF: 0 No Action (DME) lancets [OneTouch Delica Lancets] 33 gauge misc See Dose Instructions .ROUTE .MEDSUPPLY Qty: 100 RF: 0 (DME) pen needle, diabetic [BD Ultra-Fine Mini Pen Needle] 31 gauge x 3/16" needle .ROUTE .MEDSUPPLY RF: 0 (DME) OneTouch Ultra Blue Test Strip Strip .ROUTE .MEDSUPPLY RF: 0 Discharge Orders: Discharge Order (Routine); Ordered 04/12/21 Ordered By: Gregory Matthews Admission Data Admit Date/Time: 04/11/21 11:56 Attending Provider: Gregory Matthews Admit Provider: Gregory Matthews Primary Care Provider: [facility] Other Providers: Gregory Matthews ; [facility] ; Víctor Mckay Other Interventions: Discharge Summary Assessment (RN) Last Done: 04/12/21 13:56 Coding Level of Care Code D/C Day Management >30 mins Diagnoses Acute on chronic heart failure I50.9 Substernal chest pain R07.2 Paroxysmal atrial fibrillation I48.0 CKD (chronic kidney disease), stage IV N18.4 Diabetes type 2, uncontrolled E11.65 Glycemic state: with hyperglycemia Iron deficiency anemia D50.8 Iron deficiency anemia type: other iron deficiency Oropharyngeal dysphagia R13.12 Subglottic stenosis J38.6 Stenosis of trachea J39.8 Asthma J45.40 Asthma severity: moderate Asthma persistence: persistent Asthma complication type: uncomplicated Depression F32.9 Depression Type: major depressive disorder Major depression recurrence: unspecified whether recurrent Active/Remission status: remission status unspecified Dyslipidemia E78.5 Essential hypertension I10 GERD without esophagitis K21.9 Obstructive sleep apnea of adult G47.33 Venous insufficiency (chronic) (peripheral) I87.2 DVT prophylaxis Z29.9 Diabetic ulcer of left heel associated with type 2 diabetes mellitus, limited to breakdown of skin E11.621; L97.421 Hypothyroidism E03.9 Hypothyroidism type: unspecified
[2021-04-16] MEDS ORDERED: ERGOCALCIFEROL 50,000 UNITS 1250 MCG CAP PO SCH (09:00)
== END 2021-04-12 18:01 | DRG 291 ==
LOC: ED 11:40 → 2S 11:40